=== PATIENT | male | born 1940 | race Caucasian/White ===

== ENCOUNTER 2017-06-13 01:02 | Emergency (ER) | payer OTHER ==
[2017-06-13] MEDS ORDERED: NA CHLORIDE 0.9% 1,000 ML ONE (02:06)
[2017-06-13 02:10] LABS: Absolute Lymphocytes (CBC) 1.8 K/uL (0.7-4.9); Absolute Monocytes 0.6 K/uL (0.1-1.3); Absolute Neutrophil 3.3 K/uL (1.8-8.0); Basophils % 0.4 % (0-1.3); Eosinophils % 6.8 % (0-4.4); Hematocrit 38.4 % (39.6-49.0); Lymphocytes % 29.9 % (15.3-44.8); MCH 30.4 pg (27.0-35.0); MCV 91.3 fL (80-100); MPV 9.8 fL (7.6-11.3); Monocytes % 10.1 % (3.3-12.3); RBC Red Blood Cell Count 4.21 M/uL (4.33-5.43)
[2017-06-13 02:14] LABS: Protime INR 0.98
[2017-06-13 02:21] LABS: Potassium 3.8 mEq/L (3.6-5.0)
[2017-06-13 02:27] LABS: Albumin 4.1 g/dL (3.2-5.5); Bilirubin Direct 0.1 mg/dL (0-0.2); Bilirubin Total 0.5 mg/dL (0.3-1.2); CKMB Creatine Kinase MB 2.7 ng/ml (0.3-4.0); Magnesium 2.2 mg/dL (1.8-2.5); Protein, Total 7.9 g/dL (6.0-8.3)
--- NOTE | 2017-06-13 04:01 | EDPHYS ---
Physician Documentation [facility] Name: Kuldeep Ramsey Age: 77 yrs Sex: Male : 1940 Arrival Date: 06/13/2017 Time: 01:03 Bed 7 Private MD: Jeancarlos Smith V ED Physician Zaid Corral HPI: 06/13 01:47 This 77 yrs old Male presents to ER via Wheelchair with complaints of pkl Numbness Of Hand - ARM, Dizziness. 01:47 The patient presents to the emergency department with paresthesias of the right upper pkl extremity, that is mild, Also paresthesia of the left hand. Onset: The symptoms/episode began/occurred just prior to arrival, 1.5 hour(s) ago. Associated signs and symptoms: Pertinent positives: headache, blurred vision. Historical: - Allergies: 01:21 Seroquel; ak1 01:21 Morphine; ak1 01:21 Iodinated Contrast Media - IV Dye; ak1 01:21 Geodon; ak1 01:21 Codeine; ak1 - Home Meds: 01:21 amlodipine 5 mg tab 1 tab once daily [Active]; aspirin 81 mg Oral chew 1 tab once daily ak1 [Active]; valsartan 160 mg Oral tab 1 tab once daily [Active]; sotalol 120 mg Oral tab 0.5 tab 2 times per day [Active]; Lasix 40 mg Oral tab 1 tab once daily [Active]; magnesium oxide 400 mg Oral cap daily [Active]; omeprazole 20 mg Oral TbEC daily for Gastroesophageal reflux, Heartburn [Active]; potassium chloride 10 mEq Oral cpER 1 cap once daily [Active]; - PMHx: 01:21 Hypertension; Myocardial infarction; ak1 - Immunization history:: Adult Immunizations unknown. - Social history:: Smoking status: unknown. ROS: 01:47 ENT: Negative for injury, pain, and discharge. pkl 01:47 Eyes: Positive for blurry vision, of the both eyes. 01:47 Neck: Negative for stiffness. 01:47 Cardiovascular: Negative for chest pain. 01:47 Respiratory: Negative for cough, shortness of breath. 01:47 Abdomen/GI: Negative for abdominal pain, nausea, vomiting, and diarrhea. 01:47 Back: Negative for pain at rest, acute changes. 01:47 : Negative for urinary symptoms. 01:47 MS/extremity: Negative for acute changes. 01:47 Skin: Negative for rash. 01:47 Neuro: Positive for dizziness, headache. Exam: 01:47 Head/Face: Normocephalic, atraumatic. pkl 01:47 Eyes: Exam is negative for acute changes. pkl 01:47 ENT: Exam is negative for acute changes. 01:47 Neck: Exam negative for nuchal rigidity. 01:47 Chest/axilla: Exam negative for acute changes. 01:47 Cardiovascular: Rate: normal, Rhythm: regular. 01:47 Respiratory: the patient does not display signs of respiratory distress, Respirations: normal, Breath sounds: are clear throughout. 01:47 Abdomen/GI: Exam negative for acute changes. 01:47 Back: Exam negative for acute changes. 01:47 : Exam negative for acute changes. 01:47 Musculoskeletal/extremity: Exam is negative for acute changes. 01:47 Skin: Exam negative for rash. 01:47 Neuro: Orientation: is normal, Mentation: is normal, Cranial nerves: grossly normal, Cerebellar function: normal finger to nose testing, heel to roberson testing is normal, Motor: is normal. 01:55 Neuro: Sensation: numbness, that is mild, of the numbness right upper extremity pkl and left hand. Vital Signs: 01:21 BP 143 / 96; Pulse 57; Resp 16; Temp 97.9(O); Pulse Ox 97% on R/A; Weight 84.37 kg (R); ak1 Height 5 ft. 9 in. (175.26 cm) (R); Pain 7/10; 02:34 BP 121 / 57; Pulse 57; Resp 18; Pulse Ox 97% on R/A; ea 03:52 BP 116 / 66; Pulse 60; Resp 18; Pulse Ox 98% on R/A; ea 04:11 BP 120 / 70; Pulse 60; Resp 18; Pulse Ox 99% on R/A; Pain 0/10; ea 01:21 Body Mass Index 27.47 (84.37 kg, 175.26 cm) ak1 MDM: 01:07 Patient medically screened. pkl 03:54 Data reviewed: vital signs, nurses notes, lab test result(s), EKG, radiologic studies, pkl CT scan, plain films. ED course: Patient said he is feeling better. Numbness right upper extremity and left hand has improved. Headache, dizziness and vision also improved. Patient ambulate without difficulty. Advised to follow up with Dr. Barajas ( Neurologist ) this week for further evaluations. 06/13 01:44 Order name: Basic Metabolic Panel; Complete Time: 02: pkl 06/13 01:44 Order name: BNP; Complete Time: 02: pkl 06/13 01:44 Order name: CBC with Diff; Complete Time: 02:22 pkl 06/13 01:44 Order name: Ckmb; Complete Time: 02: pkl 06/13 01:44 Order name: CPK; Complete Time: 02: pkl 06/13 01:44 Order name: LFT's; Complete Time: 02: pkl 06/13 01:44 Order name: Magnesium; Complete Time: 02: pkl 06/13 01:44 Order name: PT-INR; Complete Time: 02: pkl 06/13 01:44 Order name: Ptt, Activated; Complete Time: 02: pkl 06/13 01:44 Order name: Troponin (emerg Dept Use Only); Complete Time: 02: pkl 06/13 01:44 Order name: XRAY Chest (1 view) pkl 06/13 01:44 Order name: EKG; Complete Time: 01:45 pkl 06/13 01:44 Order name: CT Head Brain wo Cont pkl 06/13 01:44 Order name: Cardiac monitoring; Complete Time: 02:00 pkl 06/13 01:44 Order name: IV Saline Lock; Complete Time: 02:00 pkl 06/13 01:44 Order name: Labs collected and sent; Complete Time: 02:00 pkl 06/13 01:44 Order name: O2 Per Protocol; Complete Time: 02:00 pkl 06/13 01:44 Order name: O2 Sat Monitoring; Complete Time: 02:01 pkl Administered Medications: 02:03 Drug: NS 0.9% 1000 ml Route: IV; Rate: 100 ml/hr; Site: right antecubital; ea 04:12 Follow up: Response: No adverse reaction; IV Status: Completed infusion; IV Intake: ea 300ml Disposition: 06/13/17 04:00 Discharged to Home. Impression: Acute headache. Paresthesias right upper extremity and left hand. - Condition is Stable. - Medication Reconciliation Form, Thank You Letter, Antibiotic Education, Prescription Opioid Use form. - Follow up: Jeancarlos Smith MD; When: 1 - 2 days; Reason: Re-evaluation by your physician. - Problem is new. - Symptoms have improved. Signatures: Dispatcher [employer] EDMS Zaid Corral MD MD pkl Krenek, Amber, RN RN ak1 Damaris Steven RN RN ea
--- NOTE | 2017-06-13 04:01 | ER ---
Nurse's Notes [facility] Name: Kuldeep Ramsey Age: 77 yrs Sex: Male : 1940 Arrival Date: 06/13/2017 Time: 01:03 Bed 7 Private MD: Jeancarlos Smith V Diagnosis: Acute headache. Paresthesias right upper extremity and left hand Presentation: 06/13 01:18 Presenting complaint: Patient states: bilateral hand numbness and tingling since ak1 midnight. Transition of care: patient was not received from another setting of care. Onset of symptoms was June 13, 2017. Note PCP Dr. Griffin and e commerce developer Dr. Laguerre. Care prior to arrival: None. 01:18 Method Of Arrival: Wheelchair ak1 01:18 Acuity: JEREMÍAS 3 ak1 Triage Assessment: :21 General: Appears in no apparent distress. Behavior is calm, cooperative. Pain: ak1 Complains of pain in right hand and left hand. EENT: No signs and/or symptoms were reported regarding the EENT system. Neuro: Level of Consciousness is awake, alert, obeys commands, Oriented to person, place, time, situation, Training Administrator are equal bilaterally Moves all extremities. Gait is steady, Speech is normal, Facial symmetry appears normal, Pupils are PERRLA. Cardiovascular: No deficits noted. Respiratory: No deficits noted. GI: No signs and/or symptoms were reported involving the gastrointestinal system. : No signs and/or symptoms were reported regarding the genitourinary system. Derm: No signs and/or symptoms reported regarding the dermatologic system. Musculoskeletal: Circulation, motion, and sensation intact. Range of motion: intact in all extremities, Reports pain in right hand and left hand. Historical: - Allergies: 01: Seroquel; ak1 01:21 Morphine; ak1 01:21 Iodinated Contrast Media - IV Dye; ak1 01:21 Geodon; ak1 01:21 Codeine; ak1 - Home Meds: 01:21 amlodipine 5 mg tab 1 tab once daily [Active]; aspirin 81 mg Oral chew 1 tab once daily ak1 [Active]; valsartan 160 mg Oral tab 1 tab once daily [Active]; sotalol 120 mg Oral tab 0.5 tab 2 times per day [Active]; Lasix 40 mg Oral tab 1 tab once daily [Active]; magnesium oxide 400 mg Oral cap daily [Active]; omeprazole 20 mg Oral TbEC daily for Gastroesophageal reflux, Heartburn [Active]; potassium chloride 10 mEq Oral cpER 1 cap once daily [Active]; - PMHx: 01:21 Hypertension; Myocardial infarction; ak1 - Immunization history:: Adult Immunizations unknown. - Social history:: Smoking status: unknown. Screenin:23 Abuse screen: Denies threats or abuse. Denies injuries from another. Nutritional ak1 screening: No deficits noted. Tuberculosis screening: No symptoms or risk factors identified. Fall Risk None identified. Assessment: 01:34 General: Appears uncomfortable, Behavior is calm, cooperative, appropriate for age. ea General: pt reports he has been feeling dizzy . Pain: Denies pain. Neuro: Reports numbness to the tip of the left fingers and right hand and arm.. Neuro: Level of Consciousness is awake, alert, obeys commands, Oriented to person, place, time, situation, Training Administrator are equal bilaterally Moves all extremities. Speech is normal, Facial symmetry appears normal, . Cardiovascular: Patient's skin is warm and dry. Respiratory: Airway is patent Respiratory effort is even, unlabored, Respiratory pattern is regular, symmetrical. GI: Abdomen is non-distended. : No signs and/or symptoms were reported regarding the genitourinary system. EENT: No signs and/or symptoms were reported regarding the EENT system. Derm: Skin is dry, Skin is normal, Skin temperature is warm. 02:16 Reassessment: Patient and/or family updated on plan of care and expected duration. Pain ea level reassessed. Patient is alert, oriented x 3, equal unlabored respirations, skin warm/dry/pink. pt reports the numbness in left fingertips resolved. 03:50 Reassessment: Pt resting with eyes closed, respiration even and unlabored chest ea expansions even and symmetrical. No obvious s/s of pain or discomfort noted at this time. 04:10 Reassessment: Patient and/or family updated on plan of care and expected duration. Pain ea level reassessed. Patient is alert, oriented x 3, equal unlabored respirations, skin warm/dry/pink. Discharge instructions given to patient, verbalized the understanding of instruction. Patient states symptoms have improved. Vital Signs: 01:21 BP 143 / 96; Pulse 57; Resp 16; Temp 97.9(O); Pulse Ox 97% on R/A; Weight 84.37 kg (R); ak1 Height 5 ft. 9 in. (175.26 cm) (R); Pain 7/10; 02:34 BP 121 / 57; Pulse 57; Resp 18; Pulse Ox 97% on R/A; ea 03:52 BP 116 / 66; Pulse 60; Resp 18; Pulse Ox 98% on R/A; ea 04:11 BP 120 / 70; Pulse 60; Resp 18; Pulse Ox 99% on R/A; Pain 0/10; ea 01:21 Body Mass Index 27.47 (84.37 kg, 175.26 cm) ak1 ED Course: 01:03 Patient arrived in ED. am2 01:04 Jeancarlos Smith MD is Private Physician. am2 01:07 Zaid Corral MD is Attending Physician. pkl 01:19 Triage completed. ak1 01:23 Arm band placed on Patient placed in an exam room, on a stretcher, on pulse oximetry, ak1 Patient notified of wait time. 01:23 Patient has correct armband on for positive identification. Bed in low position. Call ak1 light in reach. Adult w/ patient. Pulse ox on. NIBP on. 01:45 Damaris Steven, RN is Primary Nurse. ea 02:00 Basic Metabolic Panel Sent. cc 02:00 BNP Sent. cc 02:00 CBC with Diff Sent. cc 02:00 Ckmb Sent. cc 02:00 CPK Sent. cc 02:00 LFT's Sent. cc 02:00 Magnesium Sent. cc 02:00 PT-INR Sent. cc 02:00 Ptt, Activated Sent. cc 02:00 Troponin (emerg Dept Use Only) Sent. cc 02:01 Initial lab(s) drawn, by ar, sent to lab. Inserted saline lock: 18 gauge in right cc antecubital area, using aseptic technique. Blood collected. 02:04 Patient moved to radiology via stretcher. kw 02:04 X-ray completed. Patient tolerated procedure well. kw 02:04 Patient moved back from radiology. kw 02:05 XRAY Chest (1 view) In Process Unspecified. EDMS 02:05 CT Head Brain wo Cont In Process Unspecified. EDMS 03:59 Jeancarlos Smith MD is Referral Physician. pkl 04:10 No provider procedures requiring assistance completed. IV discontinued, intact, ea bleeding controlled, No redness/swelling at site. Pressure dressing applied. Administered Medications: 02:03 Drug: NS 0.9% 1000 ml Route: IV; Rate: 100 ml/hr; Site: right antecubital; ea 04:12 Follow up: Response: No adverse reaction; IV Status: Completed infusion; IV Intake: ea 300ml Intake: 04:12 IV: 300ml; Total: 300ml. ea Outcome: 04:00 Discharge ordered by . pkl 04:11 Condition: improved ea 04:11 Discharge instructions given to patient, Instructed on discharge instructions, follow up and referral plans. Demonstrated understanding of instructions, follow-up care. 04:12 Discharged to home ambulatory, with significant other. ea 04:19 Patient left the ED. ea Signatures: Dispatcher [employer] EDMS Zaid Corral MD MD pkCece Still [place] cc Krenek, Amber RN RN Tanya Kowalski Elena, TATI RN kevin Corrections: (The following items were deleted from the chart) 01:45 01:34 Neuro: Level of Consciousness is awake, alert, obeys commands, Oriented to ea person, place, time, situation, Speech is normal, . ea 02:38 02:34 BP 121 / 57; ea ea
[2017-06-13 04:26] VITALS: TEMP 97.9
[2017-06-13 04:29] VITALS: BP 120/70; O2SAT 99
--- NOTE | 2017-06-13 07:53 | RAD REPORT ---
EXAM DESCRIPTION: Nicole Single View06/13/2017 2:06 am CLINICAL HISTORY: Chest pain COMPARISON: 2010 FINDINGS: Postsurgical changes involve the chest. Haziness overlying the left hemithorax is unchange d probably representing pleural/ parenchymal lung scarring. The lungs appear clear of acute infiltrate. The heart is mildly enlarged IMPRESSION: No acute abnormalities displayed
--- NOTE | 2017-06-13 08:15 | RAD REPORT ---
EXAM DESCRIPTION: CT - Head Brain Wo Cont - 06/13/2017 6:50 am CLINICAL HISTORY: Bilateral hand numbness and headache COMPARISON: None. TECHNIQUE: Computed axial tomography of the head was obtained. IV contrast was not requested.A preli minary report was generated by [facility] and reviewed prior to this dictation All CT scans are performed using dose optimization technique as appropriate and may include automated exposure control or mA/KV adjustment according to patient size. FINDINGS: An intracranial bleed is not seen . The ventricles are normal in caliber. No extra-axial fluid collection is noted. Fluid within the sinuses/ mastoids is not seen. IMPRESSION: No acute intracranial abnormality is seen. If patient's symptoms persist MRI of the bra in would be recommended.
--- NOTE | 2017-06-13 16:28 | EKG ---
Test Date: 2017-06-13 Test Time: 02:10:33 Piper Helper: LUIS MEASUREMENT RESULTS: Intervals: Rate: 56 WI: 202 QRSD: 106 QT: 440 QTc: 424 [place]: P: 3 WI: 202 QRS: -5 T: 18 INTERPRETIVE STATEMENTS: Sinus bradycardia T wave abnormality, consider anterior ischemia Abnormal ECG Compared to ECG 05/16/2017 08:07:35 T-wave abnormality now present Possible ischemia now present Sinus rhythm no longer present ST (T wave) deviation no longer present Electronically Signed On 06-13-17 16:25:10 CDT by Hu Whaley
== END 2017-06-13 04:19 | disposition home or self-care (01) ==
LOC: ER 01:02
DX: R20.2 Paresthesia of skin (principal); I10 Essential (primary) hypertension; I25.2 Old myocardial infarction; Z79.82 Long term (current) use of aspirin; Z88.5 Allergy status to narcotic agent; Z88.8 Allergy status to other drugs, medicaments and biological substances; Z91.041 Radiographic dye allergy status
CPT/HCPCS: 36415; 70450; 71045; 80048; 80076; 82550; 82553; 83735; 83880; 84484; 85025; 85610; 85730; 93005; 96360; 96361; 99284; J7030

== ENCOUNTER 2017-07-25 07:19 | Day surgery (SDC) | payer OTHER ==
[2017-07-24 11:12] LABS: Absolute Lymphocytes (CBC) 1.2 K/uL (0.7-4.9); Absolute Monocytes 0.5 K/uL (0.1-1.3); Absolute Neutrophil 3.4 K/uL (1.8-8.0); Basophils % 0.4 % (0-1.3); Hematocrit 38.6 % (39.6-49.0); Lymphocytes % 22.1 % (15.3-44.8); MCH 30.1 pg (27.0-35.0); MCV 91.9 fL (80-100); MPV 9.5 fL (7.6-11.3); Monocytes % 9.3 % (3.3-12.3)
[2017-07-24 11:13] LABS: Protime INR 1.03
[2017-07-24 11:37] LABS: BUN Blood Urea Nitrogen 18 mg/dL (6-20); Bicarbonate 27 mEq/L (21-31); Glucose Level 164 mg/dL (65-120); Potassium 4.1 mEq/L (3.6-5.0); Sodium Level 139 mEq/L (135-145)
[2017-07-25] MEDS ORDERED: NA CHLORIDE 0.9% 500 ML ONE (07:48)
[2017-07-25] MEDS ORDERED: FENTANYL CITR 100 MCG/2 ML ONE (08:18)
[2017-07-25] MEDS ORDERED: LIDOCAINE 1% 20 ML MDV ONE (08:18)
[2017-07-25] MEDS ORDERED: HEPA 1000U/500MLS 1,000 UNIT/500 ML BAG IV ONE (08:18)
[2017-07-25] MEDS ORDERED: MIDAZOLAM HCL 2 MG/2 ML INJ ONE ×2 (08:18→08:49)
[2017-07-25 10:45] VITALS: TEMP 97.2
[2017-07-25 11:11] VITALS: BP 112/61; O2SAT 96
--- NOTE | 2017-07-26 16:58 | OP ---
Date of Procedure: 07/25/2017 Surgeon: Hu Whaley MD Commercial Portfolio Manager: Nicole Patel. Procedure: Selective bilateral carotid angiogram. Indication: Cerebrovascular disease and positive arterial Doppler. Mr. Ramsey is a 77-year-old, has had a history of CABG before, has had CVD that we have been followi ng. Last carotid Doppler showed worsening stenosis. No symptoms. Description Of Procedure: Brought to the medical lab specialist as an outpatient. He was given 2 mg of sedation w ith Versed IV. He was prepped and draped in the routine sterile fashion. A 6-Mauritian sheath was intr oduced in the right common femoral artery. Angio-Seal was used to close the case. A JR4 catheter wa s used to select the right common carotid and the left common carotid. 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 The left common carotid and the right commo n carotid were normal. Both internal carotid arteries were positive for [id number] atheroscler osis, less than 50%. The patient tolerated the procedure well. Blood loss was 5 cc. There were no complications. Total conscious sedation was 30 minutes. Operators: Hu Whaley M.D. Final Diagnosis: Mild cerebrovascular disease. Plan: Medical therapy to be continued. The patient will be going home after 2 hours of bedrest and he will see me in the office in about 2 weeks. RUPALI/SUMAN Voice ID: [id number] Report ID: [id number]
== END 2017-07-25 11:05 | disposition home or self-care (01) ==
LOC: CCL 07:19
DX: I65.23 Occlusion and stenosis of bilateral carotid arteries (principal); I25.10 Atherosclerotic heart disease of native coronary artery without angina pectoris; I70.218 Atherosclerosis of native arteries of extremities with intermittent claudication, other extremity; I10 Essential (primary) hypertension; I48.91 Unspecified atrial fibrillation; I25.2 Old myocardial infarction; K21.9 Gastro-esophageal reflux disease without esophagitis; Z95.1 Presence of aortocoronary bypass graft; Z87.891 Personal history of nicotine dependence; Z88.6 Allergy status to analgesic agent; Z91.041 Radiographic dye allergy status; Z82.49 Family history of ischemic heart disease and other diseases of the circulatory system
CPT/HCPCS: 36222 ×2; 36415; 80048; 85025; 85610; 85730; C1760; C1893; J2250 ×2; J3010

== ENCOUNTER 2018-04-27 15:06 | Inpatient (IN) | payer OTHER ==
--- NOTE | 2018-04-27 16:16 | EKG ---
Test Date: 2018-04-27 Test Time: 15:22:34 Freight Loader: SKYE MEASUREMENT RESULTS: Intervals: Rate: 58 IA: 188 QRSD: 100 QT: 454 QTc: 445 [place]: P: 37 IA: 188 QRS: 66 T: 73 INTERPRETIVE STATEMENTS: Sinus bradycardia Nonspecific T wave abnormality Abnormal ECG Compared to ECG 06/13/2017 02:10:33 Possible ischemia no longer present T-wave abnormality still present Electronically Signed On 04-27-18 16:16:26 SEARCH LEAD by Jonathan Nash
[2018-04-27 16:30] LABS: Protime INR 1.05
[2018-04-27 16:31] LABS: Absolute Lymphocytes (CBC) 1.6 K/uL (0.7-4.9); Absolute Monocytes 0.6 K/uL (0.1-1.3); Absolute Neutrophil 3.4 K/uL (1.8-8.0); Basophils % 0.6 % (0-1.3); Eosinophils % 3.4 % (0-4.4); Hematocrit 40.3 % (39.6-49.0); Lymphocytes % 27.7 % (15.3-44.8); MPV 9.4 fL (7.6-11.3); Monocytes % 9.6 % (3.3-12.3); RBC Red Blood Cell Count 4.27 M/uL (4.33-5.43)
[2018-04-27 16:46] LABS: Albumin 3.5 g/dL (3.4-5.0); Bilirubin Direct 0.1 mg/dL (0-0.2); Bilirubin Total 0.4 mg/dL (0.2-1.0); Magnesium 2.1 mg/dL (1.8-2.4); Potassium 3.9 mmol/L (3.5-5.1); Protein, Total 7.5 g/dL (6.4-8.2); Troponin (Emerg Dept Use Only) 0.31 ng/mL (0.0-0.045)
--- NOTE | 2018-04-27 16:58 | RAD REPORT ---
EXAM DESCRIPTION: RAD - Chest Single View - 04/27/2018 4:24 pm CLINICAL HISTORY: Chest pain COMPARISON: May 2017 TECHNIQUE: AP portable chest image was obtained 1619 hours . FINDINGS: Lung volumes are reduced but not substantially different from comparison. Chronic intersti tial lung disease is present. No focal mass or consolidation in the right hemithorax. Patient has haz y opacification in the mid and lower left lung field matching the prior study. This is believed to be pleural and parenchymal scarring changes related to prior surgery. Fullness of the left hilum has no t clearly changed in 10-11 months. Cardiac silhouette is similar to the comparison. Sternotomy wires are in place. No pneumothorax or large pleural effusion. No acute bony abnormality seen. No acute aor tic findings suspected. IMPRESSION: Chronic pleural and parenchymal changes to the chest are noted not substantially differe nt from the comparison. Extent of chronic disease can mask early interstitial edema or infiltrate.
--- NOTE | 2018-04-27 17:30 | RAD REPORT ---
EXAM DESCRIPTION: CT - Head Brain Wo Cont - 04/27/2018 5:17 pm CLINICAL HISTORY: Blurred vision COMPARISON: May 2017 TECHNIQUE: Axial 5 mm thick images of the head were obtained without IV contrast. All CT scans are performed using dose optimization technique as appropriate and may include automated exposure control or mA/KV adjustment according to patient size. FINDINGS: No intracranial hemorrhage, mass, edema or shift of mid-line structures. No acute cortical based infarction. No cortical edema or sulcal effacement. Patient has mild to moderate atrophy and c hronic ischemic change matching the prior study. Arterial calcifications are present. No abnormal ext ra-axial fluid collections. Ventricles are in proportion to volume loss. Mastoid air cells are non pneumatized. No acute paranasal sinus finding. No acute bony findings. IMPRESSION: Mild to moderate atrophy and chronic ischemic change. No acute intracranial finding.
--- NOTE | 2018-04-27 18:25 | ER ---
Nurse's Notes [facility] Name: Kuldeep Ramsey Age: 77 yrs Sex: Male : 1940 Arrival Date: 04/27/2018 Time: 15:07 Bed 6 Private MD: Jeancarlos Smith V Diagnosis: Unstable angina Presentation: 04/27 15:12 Presenting complaint: Patient states: no chest pain at this time but when he had it sv this morning c/o anterior chest pain and neck pain, noticed blurry vision when he registered, c/o SOB. Transition of care: patient was not received from another setting of care. Onset of symptoms was April 27, 2018. Care prior to arrival: None. 15:12 Method Of Arrival: Wheelchair sv 15:12 Acuity: JEREMÍAS 3 sv Triage Assessment: 15:15 General: Appears in no apparent distress. comfortable, Behavior is calm, cooperative, sv appropriate for age. Pain: Denies pain. Neuro: Level of Consciousness is awake, alert, obeys commands, Oriented to person, place, time, situation, Moves all extremities. Full function. Cardiovascular: Denies chest pain. Respiratory: Reports shortness of breath. Derm: Skin is normal. Historical: - Allergies: 15:14 Codeine; sv 15:14 Geodon; sv 15:14 Iodinated Contrast Media - IV Dye; sv 15:14 Morphine; sv 15:14 Seroquel; sv - Home Meds: 18:51 amlodipine 5 mg tab 1 tab once daily [Active]; aspirin 81 mg Oral chew 1 tab once daily aj [Active]; Lasix 40 mg Oral tab 1 tab once daily [Active]; magnesium oxide 400 mg Oral cap daily [Active]; omeprazole 20 mg Oral TbEC daily for Gastroesophageal reflux, Heartburn [Active]; potassium chloride 10 mEq Oral cpER 1 cap once daily [Active]; sotalol 120 mg Oral tab 0.5 tab 2 times per day [Active]; valsartan 160 mg Oral tab 1 tab once daily [Active]; - PMHx: 15:14 Hypertension; Myocardial infarction; sv - PSHx: 15:14 Triple bypass; cardiac stents; leg stents; sv - Immunization history:: Adult Immunizations up to date. - Social history:: Smoking status: Patient/guardian denies using tobacco. Screenin:15 Abuse screen: Denies threats or abuse. Denies injuries from another. Nutritional aj screening: No deficits noted. Tuberculosis screening: No symptoms or risk factors identified. Fall Risk None identified. Assessment: 16:15 General: Appears in no apparent distress. comfortable, Behavior is calm, cooperative, aj appropriate for age. Pain: Complains of pain in chest and neck Pain radiates to face. Pain: Pain began 1 day ago. Neuro: Level of Consciousness is awake, alert, obeys commands, Oriented to person, place, time, situation, Appropriate for age. Respiratory: Airway is patent Respiratory effort is even, unlabored, Respiratory pattern is regular, symmetrical. Derm: Skin is intact, is healthy with good turgor, Skin is pink, warm \T\ dry. normal. 18:22 Reassessment: Pt assisted to restroom via wheelchair. . aa5 Vital Signs: 15:14 BP 139 / 65; Pulse 63; Resp 16; Temp 97.5; Pulse Ox 100% ; Weight 79.38 kg; Height 5 sv ft. 9 in. (175.26 cm); Pain 0/10; 16:48 BP 119 / 62; Pulse 58; Resp 24; Pulse Ox 99% on R/A; aj 17:59 BP 138 / 61; Pulse 59; Resp 16; Pulse Ox 99% on R/A; aj 18:51 BP 135 / 64; Pulse 64; Resp 19; Pulse Ox 99% on R/A; aj 15:14 Body Mass Index 25.84 (79.38 kg, 175.26 cm) sv ED Course: 15:07 Patient arrived in ED. sb2 15:08 Jeancarlos Smith MD is Private Physician. sb2 15:13 Triage completed. sv 15:15 Arm band placed on. sv 15:30 Tanya Woods, TATI is Primary Nurse. aj 15:44 Maximo Beasley PA is PHCP. cp 15:45 Chau Krishnan MD is Attending Physician. cp 15:46 EKG done, by emergency medical technician. reviewed by Chau Krishnan MD. sm3 16:15 Patient has correct armband on for positive identification. Bed in low position. Side aj rails up X 1. Adult w/ patient. monitoring manager on. Pulse ox on. NIBP on. 16:15 Inserted saline lock: 20 gauge in right antecubital area, using aseptic technique. aj Blood collected. Patient maintains SpO2 saturation greater than 95% on room air. 16:26 XRAY Chest (1 view) In Process Unspecified. EDMS 17:18 CT Head Brain wo Cont In Process Unspecified. EDMS 18:23 Jeancarlos Smith MD is Hospitalizing Provider. cp Administered Medications: 18:45 Drug: Lovenox 1 mg/kg Route: Sub-Q; Site: abdomen; aj 19:20 Follow up: Response: No adverse reaction aj 18:46 CANCELLED (dose changed): Aspirin Chewable Tablet 324 mg PO once; 81 mg tablets x 4 aj 18:47 Drug: Aspirin Chewable Tablet 81 mg Route: PO; aj 19:20 Follow up: Response: No adverse reaction aj Outcome: 18:24 Decision to Hospitalize by Provider. cp 19:51 Admitted to Tele accompanied by tech, via stretcher, room 215, with chart, Report bb called to Yumiko DUFFY 19:51 Condition: stable 19:51 Instructed on the need for admit. 20:07 Patient left the ED. ak1 Signatures: Dispatcher [employer] EDWillow Gage, RN RN Tanya Arango RN RN Roz Mendoza RN RN bb Jahaira Mata, RN RN aa5 Jazmin Ortiz RN RN ak1 Maximo Beasley, REESE PA Neda Bhatia sb2 Dayna East sm3 Corrections: (The following items were deleted from the chart) 18:46 18:45 Aspirin Chewable Tablet 324 mg PO aj aj
--- NOTE | 2018-04-27 18:25 | EDPHYS ---
Physician Documentation [facility] Name: Kuldeep Ramsey Age: 77 yrs Sex: Male : 1940 Arrival Date: 04/27/2018 Time: 15:07 Bed 6 Private MD: Jeancarlos Smith V ED Physician Chau Krishnan HPI: 04/27 16:23 This 77 yrs old Male presents to ER via Wheelchair with complaints of Chest cp Pain > 30 y/o, Neck Pain, <24hrs Old, Blurred Vision. 16:23 The patient or guardian reports chest pain that is located primarily in the anterior cp chest wall, bilaterally. The pain radiates to neck. Associated signs and symptoms: Pertinent negatives: abdominal pain, cough, diaphoresis, lower extremity pain, lower extremity swelling, recent travel, shortness of breath, syncope. The chest pain is described as aching. Duration: The patient or guardian reports multiple episodes, that have now resolved. Patient reports episode of chest pain after walking that resolved with rest yesterday and another episode today of chest pain when walking in yard that has now resolved while in ED. Historical: - Allergies: 15:14 Codeine; sv 15:14 Geodon; sv 15:14 Iodinated Contrast Media - IV Dye; sv 15:14 Morphine; sv 15:14 Seroquel; sv - Home Meds: 18:51 amlodipine 5 mg tab 1 tab once daily [Active]; aspirin 81 mg Oral chew 1 tab once daily aj [Active]; Lasix 40 mg Oral tab 1 tab once daily [Active]; magnesium oxide 400 mg Oral cap daily [Active]; omeprazole 20 mg Oral TbEC daily for Gastroesophageal reflux, Heartburn [Active]; potassium chloride 10 mEq Oral cpER 1 cap once daily [Active]; sotalol 120 mg Oral tab 0.5 tab 2 times per day [Active]; valsartan 160 mg Oral tab 1 tab once daily [Active]; - PMHx: 15:14 Hypertension; Myocardial infarction; sv - PSHx: 15:14 Triple bypass; cardiac stents; leg stents; sv - Immunization history:: Adult Immunizations up to date. - Social history:: Smoking status: Patient/guardian denies using tobacco. ROS: 16:30 Constitutional: Negative for body aches, chills, fever, poor PO intake. cp 16:30 Eyes: Positive for blurry vision, Negative for discharge, pain, redness, vision loss. cp 16:30 ENT: Negative for drainage from ear(s), ear pain, sore throat, difficulty swallowing, difficulty handling secretions, hoarseness. 16:30 Cardiovascular: Positive for chest pain, Negative for edema, palpitations. 16:30 Respiratory: Negative for cough, shortness of breath, wheezing. 16:30 Abdomen/GI: Negative for abdominal pain, nausea, vomiting, and diarrhea, black/tarry stool, rectal bleeding. 16:30 Back: Negative for pain at rest, pain with movement, radiated pain. 16:30 Skin: Negative for cellulitis, rash. 16:30 Neuro: Positive for Negative for altered mental status, headache, syncope, weakness. 16:30 All other systems are negative. Exam: 16:35 Constitutional: The patient appears in no acute distress, alert, awake, cp non-diaphoretic, non-toxic, well developed, well nourished. 16:35 Head/Face: Normocephalic, atraumatic. Eyes: Pupils equal round and reactive to light, cp extra-ocular motions intact. Lids and lashes normal. Conjunctiva and sclera are non-icteric and not injected. Cornea within normal limits. Periorbital areas with no swelling, redness, or edema. ENT: Nares patent. No nasal discharge, no septal abnormalities noted. Tympanic membranes are normal and external auditory canals are clear. Oropharynx with no redness, swelling, or masses, exudates, or evidence of obstruction, uvula midline. Mucous membranes moist. Chest/axilla: Normal chest wall appearance and motion. Nontender with no deformity. No lesions are appreciated. 16:35 Cardiovascular: Rate: normal, Rhythm: regular, Pulses: Pulses are 2+ in right radial artery and left radial artery. Edema: is not appreciated, JVD: is not appreciated. 16:35 Respiratory: the patient does not display signs of respiratory distress, Respirations: normal, no use of accessory muscles, no retractions, no splinting, labored breathing, is not present, Breath sounds: are clear throughout, no decreased breath sounds, no stridor, no wheezing. 16:35 Abdomen/GI: Inspection: abdomen appears normal, Bowel sounds: active, all quadrants, Palpation: abdomen is soft and non-tender, in all quadrants. 16:35 Back: pain, is absent, ROM is normal. 16:35 Skin: cellulitis, is not appreciated, no rash present. 16:35 Neuro: Orientation: to person, place \T\ time. Mentation: is normal, Cerebellar function: is grossly normal, Motor: moves all fours, strength is normal, Sensation: is normal. Vital Signs: 15:14 BP 139 / 65; Pulse 63; Resp 16; Temp 97.5; Pulse Ox 100% ; Weight 79.38 kg; Height 5 sv ft. 9 in. (175.26 cm); Pain 0/10; 16:48 BP 119 / 62; Pulse 58; Resp 24; Pulse Ox 99% on R/A; aj 17:59 BP 138 / 61; Pulse 59; Resp 16; Pulse Ox 99% on R/A; aj 18:51 BP 135 / 64; Pulse 64; Resp 19; Pulse Ox 99% on R/A; aj 15:14 Body Mass Index 25.84 (79.38 kg, 175.26 cm) sv MDM: 15:45 Patient medically screened. 17:40 Data reviewed: vital signs, nurses notes, lab test result(s), EKG, radiologic studies, cp CT scan, plain films. 17:45 Physician consultation: Sena Castillo MD was called at 17:45, regarding admission, to the telemetry unit. left msg on voicemail. 18:09 Physician consultation: Sena Castillo MD was called at 18:10, left message on voicemail.cp 02 16:05 Order name: Basic Metabolic Panel; Complete Time: 16:51 cp 04/27 16:05 Order name: CBC with Diff; Complete Time: 16:51 cp 04/27 16:05 Order name: LFT's; Complete Time: 16:51 cp 02 16:05 Order name: Magnesium; Complete Time: 16:51 cp 02 16:05 Order name: NT PRO-BNP; Complete Time: 16:51 cp 02 16:05 Order name: PT-INR; Complete Time: 16:51 cp 04/27 16:05 Order name: Troponin (emerg Dept Use Only); Complete Time: 16:51 cp 04/27 18:57 Order name: Basic Metabolic Panel EDMS 04/27 18:57 Order name: Basic Metabolic Panel; Complete Time: 14:21 EDMS 04/27 18:57 Order name: CBC with Automated Diff EDMS 04/27 18:57 Order name: CBC with Automated Diff; Complete Time: 14:21 EDMS 04/27 18:57 Order name: Troponin I EDMS 04/27 18:57 Order name: Troponin I; Complete Time: 14:21 EDMS 04/27 18:57 Order name: Troponin I; Complete Time: 14:21 EDMS 04/27 15:15 Order name: EKG; Complete Time: 15:15 sv 04/27 15:15 Order name: EKG - Nurse/Tech; Complete Time: 16:04 sv 04/27 16:05 Order name: XRAY Chest (1 view); Complete Time: 17:21 cp 04/27 16:05 Order name: Cardiac monitoring; Complete Time: 16:18 cp 04/27 16:05 Order name: IV Saline Lock; Complete Time: 16:18 cp 04/27 16:05 Order name: Labs collected and sent; Complete Time: 16:18 cp 04/27 16:52 Order name: CT Head Brain wo Cont; Complete Time: 17:39 cp 04/27 18:57 Order name: CONS Physician Consult EDAZ 04/27 18:57 Order name: Regular EDAZ 04/27 18:57 Order name: EKG Electrocardiogram EDAZ 04/27 18:57 Order name: EKG Electrocardiogram EDAZ 04/27 18:57 Order name: EKG Electrocardiogram EDAZ 04/27 18:57 Order name: EKG Electrocardiogram EDAZ 04/27 16:05 Order name: O2 Per Protocol; Complete Time: 16:20 cp 04/27 16:05 Order name: O2 Sat Monitoring; Complete Time: 16:20 cp 04/27 17:22 Order name: Misc. Order: bed rest; Complete Time: 17:29 cp Administered Medications: 18:45 Drug: Lovenox 1 mg/kg Route: Sub-Q; Site: abdomen; aj 19:20 Follow up: Response: No adverse reaction aj 18:46 CANCELLED (dose changed): Aspirin Chewable Tablet 324 mg PO once; 81 mg tablets x 4 aj 18:47 Drug: Aspirin Chewable Tablet 81 mg Route: PO; aj 19:20 Follow up: Response: No adverse reaction aj Disposition: 21:00 Chart complete. cp Disposition: 04/27/18 18:24 Hospitalization ordered by Jeancarlos Smiht for Inpatient Admission. Preliminary diagnosis is Unstable angina. - Bed requested for Telemetry/MedSurg (Inpatient). - Status is Inpatient Admission. ak1 - Condition is Stable. - Problem is new. - Symptoms have improved. UTI on Admission? No Addendum: 04/30/2018 07:47 Co-signature as Attending Physician, Chau Krishnan MD I agree with the assessment and k plan of care. Signatures: Dispatcher [employer] EDMS Katie Scherer RN Willow Rawls RN RN Tanya Arango RN Chau Recio MD MD [facility] Jazmin Ortiz RN RN ak Maximo Beasley PA PA cp Corrections: (The following items were deleted from the chart) 04/27 18:46 17:40 Aspirin Chewable Tablet 324 mg PO once; 81 mg tablets x 4 ordered. cp aj 18:46 18:45 Aspirin Chewable Tablet 324 mg PO once; 81 mg tablets x 4 given. aj aj 18:46 18:46 Aspirin Chewable Tablet 324 mg PO once; 81 mg tablets x 4 ordered. aj aj 19:15 18:24 Hospitalization Ordered by Jeancarlos Smith MD for Inpatient Admission. Preliminary diagnosis is Unstable angina. Bed requested for Telemetry/MedSurg (Inpatient). Status is Inpatient Admission. Condition is Stable. Problem is new. Symptoms have improved. UTI on Admission? No. cp 20:07 19:15 04/27/2018 18:24 Hospitalization Ordered by Jeancarlos Smith MD for Inpatient ak1 Admission. Preliminary diagnosis is Unstable angina. Bed requested for Telemetry/MedSurg (Inpatient). Status is Inpatient Admission. Condition is Stable. Problem is new. Symptoms have improved. UTI on Admission? No. kl
[2018-04-27] MEDS ORDERED: ENOXAPARIN 80 MG/0.8 ML SQ ONE (18:51)
[2018-04-27] MEDS ORDERED: ASPIRIN 81 MG CHEWABLE TABLET ONE (18:51)
[2018-04-27] MEDS ORDERED: ONDANSETRON 4 MG/2 ML VIAL IV PRN (18:54)
[2018-04-27] MEDS ORDERED: ACETAMINOPHEN 500 MG TAB PO PRN (18:54)
[2018-04-27] MEDS ORDERED: ENOXAPARIN 80 MG/0.8 ML SQ SCH (21:00)
[2018-04-27 21:35] VITALS: BMI 24.7
[2018-04-27] MEDS: SOTALOL HCL 80 MG TAB PO SCH (23:01)
[2018-04-28 06:01] LABS: Absolute Lymphocytes (CBC) 1.5 K/uL (0.7-4.9); Absolute Monocytes 0.6 K/uL (0.1-1.3); Absolute Neutrophil 2.6 K/uL (1.8-8.0); Basophils % 0.3 % (0-1.3); Eosinophils % 4.3 % (0-4.4); Lymphocytes % 30.7 % (15.3-44.8); MPV 9.8 fL (7.6-11.3); RBC Red Blood Cell Count 3.98 M/uL (4.33-5.43)
[2018-04-28 06:10] LABS: Potassium 4.2 mmol/L (3.5-5.1)
[2018-04-28] MEDS: PANTOPRAZOLE 40MG TABLET PO SCH (06:25)
[2018-04-28] MEDS ORDERED: AMLODIPINE 5 MG TAB PO SCH ×2 (09:00)
[2018-04-28] MEDS ORDERED: HOME MED 1 EA UNK (Omeprazole [Prilosec] 20 MG) PO SCH (09:00)
[2018-04-28] MEDS ORDERED: SOTALOL HCL 120 MG PO SCH (09:00)
[2018-04-28] MEDS ORDERED: VALSARTAN 80 MG TAB PO SCH (09:00)
[2018-04-28] MEDS ORDERED: VALSARTAN 160 MG TAB PO SCH (09:00)
[2018-04-28] MEDS: SOTALOL HCL 80 MG TAB PO SCH ×2 (10:23→20:59)
[2018-04-28] MEDS: ASPIRIN EC 81 MG TAB PO SCH (10:23)
[2018-04-28] MEDS: ENOXAPARIN 80 MG/0.8 ML SQ SCH ×2 (10:25→21:00)
[2018-04-28] MEDS: MAGNESIUM OXIDE 400 MG TAB PO SCH (10:27)
--- NOTE | 2018-04-28 10:44 | P.HP ---
Certification for Inpatient Patient admitted to: Inpatient With expected LOS: >2 Midnights Practitioner: I am a practitioner with admitting privileges, knowledge of patient current condition, hospital course, and medical plan of care. Services: Services provided to patient in accordance with Admission requirements found in Title 42 Section 412.3 of the Code of Federal Regulations Patient History Date of Service: 04/28/18 Reason for admission: CHEST PAIN WITH EXERSION History of Present Illness: MR. KUO IS A CAD PATIENT WHO HAS HAD EXERSIONAL ANGINA WITH WALKING A FEW STEPS FOR A LAST FEW DAYS. HE MCPHERSON HAD MULTIPLE STENTS IN THE PAST. Allergies Iodinated Contrast- Oral and IV Dye [Iodinated Contrast Media - IV Dye] Allergy (Verified 04/28/18 03:19) Anaphylaxis morphine Allergy (Verified 04/28/18 03:19) Anaphylaxis quetiapine fumarate [From Seroquel] Allergy (Verified 04/28/18 03:19) Unknown ziprasidone mesylate [From Geodon] Allergy (Verified 04/28/18 03:19) altered mental status, agitation codeine Allergy (Uncoded 04/28/18 03:19) Hives/Rash Kiwi (Actinidia Chinensi Allergy (Uncoded 04/28/18 03:19) Unknown Strawberries Allergy (Uncoded 04/28/18 03:19) Unknown Home Medications: Amlodipine Besylate 5 mg PO DAILY 07/18/14 Furosemide [Lasix*] 40 mg PO DAILY 07/18/14 Omeprazole [Prilosec] 20 mg PO DAILY 07/18/14 Potassium Chloride [Klor-Con M10] 10 meq PO DAILY 07/18/14 Sotalol HCl [Betapace] 120 mg PO DAILY 07/18/14 Aspirin [Aspirin EC 81 MG] 81 mg PO DAILY 06/17/16 Magnesium Oxide [Mag 0X Tab] 400 mg PO DAILY 04/27/18 Sotalol HCl [Sotalol] 60 mg PO BEDTIME 04/27/18 Valsartan [Diovan] 160 mg PO DAILY 04/27/18 - Past Medical/Surgical History Has patient received pneumonia vaccine in the past: No Diabetic: No -: HTN -: [place] -: melanoma on back -: a-fib -: CABG -: cardiac stents -: cholecystectomy -: back sx -: left knee replacement -: right rotator cuff sx - Family History Brother -: Heart disease, Hypertension Sister -: Hypertension - Social History Smoking Status: Never smoker Alcohol use: No CD- Drugs: No Caffeine use: Yes Place of Residence: Home Review of Systems 10-point ROS is otherwise unremarkable Physical Examination - Vital Signs Temperature: 98.5 F Blood Pressure: 122/60 Pulse: 67 Respirations: 18 Pulse Ox (%): 97 - Physical Exam General: Alert, In no apparent distress HEENT: Atraumatic, PERRLA, Mucous membr. moist/pink, EOMI, Sclerae nonicteric Neck: Supple, 2+ carotid pulse no bruit, No LAD, Without JVD or thyroid abnormality Respiratory: Clear to auscultation bilaterally, Normal air movement Cardiovascular: Regular rate/rhythm, Normal S1 S2 Gastrointestinal: Normal bowel sounds, No tenderness Musculoskeletal: No tenderness Integumentary: No rashes Neurological: Normal gait, Normal speech, Normal strength at 5/5 x4 extr, Normal tone, Normal affect Lymphatics: No axilla or inguinal lymphadenopathy - Studies Laboratory Data (last 24 hrs) 04/27/18 16:13: PT 12.4, INR 1.05 04/27/18 16:13: WBC 5.8, Hgb 13.2 L, Hct 40.3, Plt Count 140 L 04/27/18 16:13: Sodium 140, Potassium 3.9, BUN 21 H, Creatinine 1.02, Glucose 119 H, Magnesium 2.1, Total Bilirubin 0.4, AST 17, ALT 20, Alkaline Phosphatase 70 Assessment and Plan - Problems (Diagnosis) (1) Chest pain Onset Date: 05/16/17 Current Visit: No Status: Acute Plan: HE HAS A GOOD CARADIAC STORY. CHEST PAIN IS MOST LIKELY FROM CAD. MILD ELEVATED ENZYMES INDICATE NSTEMI. RESUME ASPIRIN LOVENOX OXYGEN PRN. BP PARAMETERS WRITTEN. STABLE TODAY. - Advance Directives Does patient have a Living Will: No Does patient have a Durable POA for Healthcare: No
--- NOTE | 2018-04-28 14:12 | CON ---
Chief Complaint: Chest pain. History Of Present Illness: Mr. Ramsey has a history of bypass surgery about 15 years ago. He had cardiac cath as recently as July 2017, so just about 8 or 9 months ago at that time, we found that his coronary heart disease was fairly stable. No further intervention was done. Carotid angiogram was also done. There was mild to moderate sclerosis. He did have a 70% stenosis in the right external c arotid. No carotid endarterectomy was done following this. He did not have a coronary intervention either. Actually, at that time, no coronary angiogram was done, just the carotids. His last cardiac cath was 2016. He had a patent GERARD to the LAD, diffuse small vessel disease, saphenous vein graft to the right coronary was patent, standing rock right and left coronary arteries were totally occluded. He came to the hospital because now it is just very minimal exertion. He gets tightness and pressure in the chest. Since he has been here, troponins were elevated, the highest one is only 0.48. His bypa ss surgery was roughly 15 years ago. He uses no tobacco. He has a history of CAD, diabetes, hyperte nsion, dyslipidemia, and atrial fibrillation. Outpatient Medications: Lasix, sotalol, potassium chloride, omeprazole, amlodipine, aspirin, magnesi um oxide, valsartan. I have 2 different doses of sotalol for him. I think the correct dose is 120 b .i.d. with half a pill at bedtime sometimes. Physical Examination: Vital Signs: 5 feet 9 inches, 167 pounds. HEENT: Normal. Lungs: Clear. Heart: Within normal limits. Extremities: Normal. Impression: The patient should have a cardiac cath. Between now and then, we will start to give him ranolazine to see if we can control his angina, but we will plan to do a cardiac cath on Monday [place] GUERRA/SUMAN Voice ID: [id number] Report ID: [id number]
[2018-04-28] MEDS ORDERED: SOTALOL HCL 60 MG PO SCH (21:00)
[2018-04-29] MEDS: PANTOPRAZOLE 40MG TABLET PO SCH (05:47)
[2018-04-29] MEDS: AMLODIPINE 5 MG TAB PO SCH (09:00)
[2018-04-29] MEDS: VALSARTAN 80 MG TAB PO SCH (09:00)
[2018-04-29] MEDS: ASPIRIN EC 81 MG TAB PO SCH (09:36)
[2018-04-29] MEDS: SOTALOL HCL 80 MG TAB PO SCH ×2 (09:36→20:44)
[2018-04-29] MEDS: ENOXAPARIN 80 MG/0.8 ML SQ SCH (09:37)
[2018-04-29] MEDS: MAGNESIUM OXIDE 400 MG TAB PO SCH (09:37)
--- NOTE | 2018-04-29 13:49 | P.PN ---
Subjective Date of Service: 04/29/18 Chief Complaint: CHEST PAIN WITH EXERSION Subjective: Improving, C/O voiced (CHEST PAIN ONCE LAST NIGHT FOR A FEW MINUTES , MILDER AND NO RADIATION.) Review of Systems 10-point ROS is otherwise unremarkable Physical Examination - Vital Signs Temperature: 98.1 F Blood Pressure: 116/58 Pulse: 62 Respirations: 18 Pulse Ox (%): 96 - Physical Exam General: Alert, In no apparent distress HEENT: Atraumatic, PERRLA, EOMI Neck: Supple, JVD not distended Respiratory: Clear to auscultation bilaterally, Normal air movement Cardiovascular: Regular rate/rhythm, Normal S1 S2 Gastrointestinal: Normal bowel sounds, No tenderness Musculoskeletal: No tenderness Integumentary: No rashes Neurological: Normal speech, Normal tone, Normal affect Lymphatics: No axilla or inguinal lymphadenopathy - Studies Medications List Reviewed: Yes Assessment And Plan - Current Problems (Diagnosis) (1) Chest pain Onset Date: 05/16/17 Current Visit: No Status: Acute Plan: HE HAS A GOOD CARADIAC STORY. CHEST PAIN IS MOST LIKELY FROM CAD. MILD ELEVATED ENZYMES INDICATE NSTEMI. RESUME ASPIRIN LOVENOX OXYGEN PRN. BP PARAMETERS WRITTEN. STABLE TODAY. ANGINA ONCE LAST NIGHT. MILDER. CATH IN AM.
--- NOTE | 2018-04-29 14:43 | PN ---
Mr. Ramsey is not having chest pain today. We plan to do a cardiac cath tomorrow. I strongly suspe ct he has progressive disease. He is completely graft dependent after reviewing his last films. The LAD, circumflex and right coronary arteries are all totally occluded. All blood flow to his heart de pends on the grafts. We will be ready to put a stent in the graft if it is needed. MARI/SUMAN Voice ID: [id number] Report ID: [id number]
[2018-04-30] MEDS: PANTOPRAZOLE 40MG TABLET PO SCH (05:19)
[2018-04-30] MEDS ORDERED: LIDOCAINE 1% MPF 30 ML VIAL ONE (07:30)
[2018-04-30] MEDS ORDERED: predniSONE 20 MG TAB PO ONE (07:51)
[2018-04-30] MEDS: ASPIRIN EC 81 MG TAB PO SCH (08:02)
[2018-04-30] MEDS: SOTALOL HCL 80 MG TAB PO SCH ×2 (08:03→21:24)
[2018-04-30] MEDS: MAGNESIUM OXIDE 400 MG TAB PO SCH (08:06)
--- NOTE | 2018-04-30 08:49 | EKG ---
Test Date: 2018-04-28 Test Time: 21:13:03 Erecting Crane Operator: GHAZALA MEASUREMENT RESULTS: Intervals: Rate: 55 PA: 194 QRSD: 106 QT: 472 QTc: 451 [place]: P: 26 PA: 194 QRS: 8 T: 34 INTERPRETIVE STATEMENTS: Sinus bradycardia Nonspecific T wave abnormality Abnormal ECG Compared to ECG 04/27/2018 15:22:34 No significant changes Electronically Signed On 04-30-18 08:49:04 DISTRICT OPERATIONS MANAGER by Jonathan Nash
[2018-04-30] MEDS: VALSARTAN 80 MG TAB PO SCH (09:46)
[2018-04-30] MEDS: AMLODIPINE 5 MG TAB PO SCH (09:46)
[2018-04-30] MEDS ORDERED: LIDOCAINE 1% 20 ML MDV ONE (12:04)
[2018-04-30] MEDS ORDERED: HEPA 1000U/500MLS 2,000 UNIT/1,000 ML BAG IV ONE (12:04)
[2018-04-30] MEDS ORDERED: ATROPINE SULF 1 MG/10 ML SYR IV ONE (12:05)
[2018-04-30] MEDS ORDERED: MIDAZOLAM HCL 2 MG/2 ML INJ ONE (12:11)
[2018-04-30] MEDS ORDERED: FENTANYL CITR 100 MCG/2 ML ONE (12:11)
[2018-04-30] MEDS ORDERED: NA CHLORIDE 0.9% 500 ML ONE (12:22)
[2018-04-30] MEDS ORDERED: METHYLPREDNISOLONE 125 MG INJ ONE (12:29)
[2018-04-30] MEDS ORDERED: PRASUGREL (EFFIENT) 10 MG TAB ONE (13:12)
--- NOTE | 2018-04-30 17:27 | P.PN ---
Subjective Date of Service: 04/30/18 Chief Complaint: CHEST PAIN, CATH TODAY. Subjective: Improving Review of Systems 10-point ROS is otherwise unremarkable Physical Examination - Vital Signs Temperature: 97.6 F Blood Pressure: 134/62 Pulse: 54 Respirations: 18 Pulse Ox (%): 96 - Physical Exam General: Alert, In no apparent distress HEENT: Atraumatic, PERRLA, EOMI Neck: Supple, JVD not distended Respiratory: Clear to auscultation bilaterally, Normal air movement Cardiovascular: Regular rate/rhythm, Normal S1 S2 Gastrointestinal: Normal bowel sounds, No tenderness Musculoskeletal: No tenderness Integumentary: No rashes Neurological: Normal speech, Normal tone, Normal affect Lymphatics: No axilla or inguinal lymphadenopathy - Studies Medications List Reviewed: Yes Assessment And Plan - Current Problems (Diagnosis) (1) Chest pain Onset Date: 05/16/17 Current Visit: No Status: Acute Plan: HE HAS A GOOD CARADIAC STORY. CHEST PAIN IS MOST LIKELY FROM CAD. MILD ELEVATED ENZYMES INDICATE NSTEMI. RESUME ASPIRIN LOVENOX OXYGEN PRN. BP PARAMETERS WRITTEN. STABLE TODAY. ANGINA ONCE LAST NIGHT. MILDER. CATH IN AM. HE HAD CATH TODAY WITH STENT PLACED BY DR MILLARD. DETAILS PENDING. RESUME MEDS. DC IN AM.
[2018-04-30] MEDS ORDERED: ATORVASTATIN 80 MG TAB PO SCH (21:00)
--- NOTE | 2018-04-30 23:58 | OP ---
Surgeon: Jonathan Nash MD Procedures: Left heart catheterization with coronary angiography, angiography of 2 saphenous veins t o the right coronary and obtuse marginal respectively, and angiography of the left internal mammary a rtery bypass graft to the left anterior descending. No left ventriculogram was done in order to redu ce the amount of contrast given to the patient. Procedure Findings: The patient has a 90% left main stenosis, totally occluded circumflex and LAD, a nd a totally occluded wainwright right coronary artery. The saphenous vein graft to the right coronary a rtery is free of any stenosis. The saphenous vein graft to the obtuse marginal artery had a 90% prox imal stenosis, friable lesion. The left internal mammary was free of any significant disease and gav e good blood flow to the LAD, demonstrating collateral flow on wainwright coronary injections. No left v entriculogram was done after the stent procedure. The 90% lesion in the graft that was within 15 mm of the ostium, was successfully dilated with a 3.0 x 16 Synergy stent. There was no significant sten osis. Distal runoff was normal with BELL-3 flow. One dose of nitroglycerin was given intracoronary or intragraft at the end of the procedure. Procedure In Detail: The patient was brought to the cardiac catheterization lab in a fasting state, sedated with Versed and fentanyl, and prepared and draped. Right femoral approach was used. The tis sues around the right femoral artery were anesthetized using 1% lidocaine. The artery was entered us ing an 18-gauge needle. A short J-wire was used to cannulate the artery, and we placed a 4-Taiwanese sh eath in. We angiogramed the left and right coronary arteries and grafts using a JL4 and a JR4. Once a decision was made to place a stent, we switched to a 6-Taiwanese sheath, gave Angiomax, demonstrated adequate anticoagulation. Activated clotting time was in the therapeutic range. We used a 6-Taiwanese JR4 guide to cannulate the ostium of the obtuse marginal graft. We were able to float a wire across the lesion; and then without any predilation, we used a 3.0 x 16 Synergy stent that was able to cross the lesion. It covered the entirety of it; and when inflated to 14 atmospheres, the angiographic re sult was excellent. At the end of the procedure, catheters were withdrawn out of the artery. Angiog leann were taken. A dose of nitroglycerin was given intracoronary, and then the guide catheter was re moved, and an angiogram was taken of the right femoral artery using the sheath. Adequate anatomy was seen; and when the activated clotting time is 260 seconds or less, we will deploy an Angio-Seal ailyn ce. No complications from the procedure. Estimated Blood Loss: 20 cc. Head Of Data: Shanell Patel. MARI/SUMAN Voice ID: [id number] Report ID: [id number]
[2018-05-01] MEDS: PANTOPRAZOLE 40MG TABLET PO SCH (05:30)
[2018-05-01] MEDS: SOTALOL HCL 80 MG TAB PO SCH (08:01)
[2018-05-01] MEDS: AMLODIPINE 5 MG TAB PO SCH (08:02)
[2018-05-01] MEDS: ASPIRIN EC 81 MG TAB PO SCH (08:03)
[2018-05-01] MEDS: MAGNESIUM OXIDE 400 MG TAB PO SCH (08:03)
[2018-05-01] MEDS: VALSARTAN 80 MG TAB PO SCH (08:03)
[2018-05-01] MEDS ORDERED: CLOPIDOGREL 75 MG TABLET PO SCH (09:00)
[2018-05-01 10:59] VITALS: O2SAT 97
--- NOTE | 2018-05-01 12:03 | PN ---
Mr. Ramsey is doing well. We put a stent in the graft to his obtuse marginal yesterday. He seems t o be doing well today. The procedure site looks fine. I believe he could be discharged. He does ne ed a new prescription for Plavix. I will be glad to do that or leave it to Dr. Smith, whichever is m ore convenient. He will continue on his other medicines uninterrupted, and he needs to be on a very high dose of the statin, so we will put him back on his Lipitor 80. MARI/SUMAN Voice ID: [id number] Report ID: [id number]
[2018-05-01 15:01] VITALS: BP 135/63; TEMP 98.1
--- NOTE | 2018-05-01 17:37 | P.DS ---
Admission Date: 04/27/18 Discharge Date: 05/01/18 Disposition: ROUTINE DISCHARGE Discharge Condition: FAIR Reason for Admission: CHEST PAIN, CATH TODAY. - Problems (1) Chest pain Onset Date: 05/16/17 Status: Acute Brief History of Present Illness: MR. KUO IS A CAD PATIENT WHO HAS HAD EXERSIONAL ANGINA WITH WALKING A FEW STEPS FOR A LAST FEW DAYS. HE MCPHERSON HAD MULTIPLE STENTS IN THE PAST. MR. KUO HAS DONE WITH OM STENT. HIS BP STAYED LOW SO HE IS OFF HIS BP PILLS FOR NOW. HE MAY NEED TO RESUME LATER ON THEM. Vital Signs/Physical Exam: Temp Pulse Resp BP Pulse Ox 98.1 F 67 18 135/63 95 05/01/18 12:00 05/01/18 12:00 05/01/18 12:00 05/01/18 12:00 05/01/18 12:00 Laboratory Data at Discharge: WBC 4.9 K/uL (4.3-10.9) D 04/28/18 05:33 Hgb 12.4 g/dL (13.6-17.9) L 04/28/18 05:33 Hct 37.0 % (39.6-49.0) L 04/28/18 05:33 Plt Count 142 K/uL (152-406) L 04/28/18 05:33 PT 12.4 SECONDS (9.5-12.5) 04/27/18 16:13 INR 1.05 04/27/18 16:13 Sodium 143 mmol/L (136-145) 04/28/18 05:33 Potassium 4.2 mmol/L (3.5-5.1) 04/28/18 05:33 BUN 22 mg/dL (7-18) H 04/28/18 05:33 Creatinine 1.01 mg/dL (0.55-1.3) 04/28/18 05:33 Glucose 106 mg/dL (74-106) 04/28/18 05:33 Magnesium 2.1 mg/dL (1.8-2.4) 04/27/18 16:13 Total Bilirubin 0.4 mg/dL (0.2-1.0) 04/27/18 16:13 AST 17 U/L (15-37) 04/27/18 16:13 ALT 20 U/L (12-78) 04/27/18 16:13 Alkaline Phosphatase 70 U/L (45-117) 04/27/18 16:13 Troponin I 0.43 ng/mL (0.0-0.045) H 04/28/18 00:31 Home Medications: Omeprazole [Prilosec] 20 mg PO DAILY 07/18/14 Sotalol HCl [Betapace] 120 mg PO DAILY 07/18/14 Aspirin [Aspirin EC 81 MG] 81 mg PO DAILY 06/17/16 Magnesium Oxide [Mag 0X Tab] 400 mg PO DAILY 04/27/18 Sotalol HCl [Sotalol] 60 mg PO BEDTIME 04/27/18 Atorvastatin Calcium [Lipitor] 80 mg PO BEDTIME #90 tab 05/01/18 Clopidogrel Bisulfate [Plavix] 75 mg PO DAILY #90 tablet 05/01/18 New Medications: Atorvastatin Calcium [Lipitor] 80 mg PO BEDTIME #90 tab Clopidogrel Bisulfate [Plavix] 75 mg PO DAILY #90 tablet Diet: [facility] Followup: Jeancarlos Smith MD [ACTIVE - CAN ADMIT] - 1-2 Weeks (Call for appointment) Jonathan Nash MD [ACTIVE - CAN ADMIT] - 1 Week (Call for appointment)
== END 2018-05-01 14:25 | disposition home or self-care (01) | DRG 247 ==
LOC: ER 15:06 → ERHOLD 18:53 → 2ND 19:53
PROVIDERS: ADMIT Internal Medicine; ATTEND Internal Medicine
PROC: 027034Z Dilation of Coronary Artery, One Artery with Drug-eluting Intraluminal Device, Percutaneous Approach (ICD-10-PCS; principal; 2018-04-30)
PROC: 4A023N7 Measurement of Cardiac Sampling and Pressure, Left Heart, Percutaneous Approach (ICD-10-PCS; 2018-04-30)
PROC: B211YZZ Fluoroscopy of Multiple Coronary Arteries using Other Contrast (ICD-10-PCS; 2018-04-30)
PROC: B213YZZ Fluoroscopy of Multiple Coronary Artery Bypass Grafts using Other Contrast (ICD-10-PCS; 2018-04-30)
DX: I25.110 Atherosclerotic heart disease of native coronary artery with unstable angina pectoris (principal); Z88.5 Allergy status to narcotic agent; Z88.8 Allergy status to other drugs, medicaments and biological substances; Z91.041 Radiographic dye allergy status; Z95.1 Presence of aortocoronary bypass graft; Z95.5 Presence of coronary angioplasty implant and graft; I25.2 Old myocardial infarction; Z85.820 Personal history of malignant melanoma of skin; E11.9 Type 2 diabetes mellitus without complications; I10 Essential (primary) hypertension; I48.91 Unspecified atrial fibrillation; E78.5 Hyperlipidemia, unspecified
CPT/HCPCS: 36415; 70450; 71045; 80048; 80076; 83735; 83880; 84484; 85025; 85347; 85610; 93005; 93454; 96372; 99285; C1725; C1760; C1893; C9600; J0583; J1650; J2250; J2930; J3010; J7512

== ENCOUNTER 2018-06-28 18:56 | Observation (INO) | payer OTHER ==
--- NOTE | 2018-06-28 19:50 | RAD REPORT ---
EXAM DESCRIPTION: Nicole Single View06/28/2018 7:40 pm CLINICAL HISTORY: Chest pain COMPARISON: April 2018 FINDINGS: Haziness involving the left hemithorax without significant change likely represent a combi [place] of pleural and parenchymal scarring. The lungs appear clear of acute infiltrate. The heart is mildly enlarged. Postsurgical changes involve the chest. IMPRESSION: No acute abnormalities displayed
--- NOTE | 2018-06-28 19:57 | RAD REPORT ---
EXAM DESCRIPTION: CT - Head Brain Wo Cont - 06/28/2018 7:41 pm CLINICAL HISTORY: Syncope COMPARISON: April 2018 TECHNIQUE: Computed axial tomography of the head was obtained. IV contrast was not requested. All CT scans are performed using dose optimization technique as appropriate and may include automated exposure control or mA/KV adjustment according to patient size. FINDINGS: An intracranial bleed is not seen . The ventricles are normal in caliber. Mild cerebral atrophy is seen No extra-axial fluid collection is noted. Mild low-density areas within periventricular, deep and sub cortical white matter likely represent ischemic changes secondary to small vessel disease. Fluid within the sinuses/ mastoids is not seen. IMPRESSION: No acute intracranial abnormality is seen. If patient's symptoms persist MRI of the bra in would be recommended.
[2018-06-28] MEDS ORDERED: FENTANYL CITR 100 MCG/2 ML ONE ×2 (20:07→21:26)
[2018-06-28 20:16] LABS: Absolute Lymphocytes (CBC) 0.9 K/uL (0.7-4.9); Absolute Monocytes 0.7 K/uL (0.1-1.3); Absolute Neutrophil 4.1 K/uL (1.8-8.0); Basophils % 0.5 % (0-1.3); Eosinophils % 4.4 % (0-4.4); Hematocrit 39.4 % (39.6-49.0); Lymphocytes % 15.3 % (15.3-44.8); MPV 9.5 fL (7.6-11.3); Monocytes % 11.1 % (3.3-12.3); RBC Red Blood Cell Count 4.23 M/uL (4.33-5.43)
[2018-06-28 20:28] LABS: ALT/SGPT 36 U/L (12-78); AST/SGOT 27 U/L (15-37); Albumin 3.8 g/dL (3.4-5.0); Alkaline Phosphatase 73 U/L (45-117); BUN Blood Urea Nitrogen 21 mg/dL (7-18); Bicarbonate 28 mmol/L (21-32); Bilirubin Direct 0.2 mg/dL (0-0.2); Bilirubin Total 0.6 mg/dL (0.2-1.0); Glucose Level 109 mg/dL (74-106); Magnesium 2.2 mg/dL (1.8-2.4); NT PRO-BNP 574 pg/mL (<450); Potassium 4.1 mmol/L (3.5-5.1); Protein, Total 7.8 g/dL (6.4-8.2); Sodium Level 141 mmol/L (136-145); Troponin (Emerg Dept Use Only) < 0.02 ng/mL (0.0-0.045)
[2018-06-28 20:34] LABS: Protime INR 1.09
--- NOTE | 2018-06-28 20:45 | RAD REPORT ---
EXAM DESCRIPTION: CT - Thorax Wo Con - 06/28/2018 8:22 pm CLINICAL HISTORY: Chest pain status post fall COMPARISON: None TECHNIQUE: Computed axial tomography of the chest was obtained. Contrast was not requested. All CT scans are performed using dose optimization technique as appropriate and may include automated exposure control or mA/KV adjustment according to patient size. FINDINGS: The evaluation of mediastinum, mariajose and vessels is limited secondary to lack of IV contras t administration. Nondisplaced fractures involve the left anterior third, fourth, fifth and seventh ribs. A mediastinal hematoma is not seen. A pulmonary contusion is not noted. A pneumothorax is not present. Chronic interstitial lung opacitie s. A pleural effusion is not present. A pericardial effusion is not seen IMPRESSION: Nondisplaced fractures involve the left anterior third, fourth, fifth and seventh ribs.
--- NOTE | 2018-06-28 21:15 | EDPHYS ---
Physician Documentation [facility] Name: Kuldeep Ramsey Age: 78 yrs Sex: Male : 1940 Arrival Date: 06/28/2018 Time: 18:59 Bed 4 Private MD: ED Physician Husam Horvath HPI: 06/28 19:26 This 78 yrs old Male presents to ER via EMS with complaints of Fall Injury. tw4 19:26 Details of fall: The patient fell from an upright position, while standing. Onset: The tw4 symptoms/episode began/occurred today. Associated injuries: The patient sustained injury to the chest. Severity of symptoms: At their worst the symptoms were moderate, in the emergency department the symptoms are unchanged. The patient has not experienced similar symptoms in the past. 19:30 Pt states he fell then he possibly passed out. Pt denies head injury. tw4 Historical: - Allergies: 19:05 Codeine; hb 19:05 Geodon; hb 19:05 Iodinated Contrast Media - IV Dye; hb 19:05 Morphine; hb 19:05 Seroquel; hb 19:05 Ibuprofen; hb - Home Meds: 19:05 aspirin 81 mg Oral chew 1 tab once daily [Active]; magnesium oxide 400 mg Oral cap hb daily [Active]; omeprazole 20 mg Oral TbEC daily for Gastroesophageal reflux, Heartburn [Active]; potassium chloride 10 mEq Oral cpER 1 cap once daily [Active]; sotalol 120 mg Oral tab 0.5 tab 2 times per day [Active]; 20:05 Lipitor 80 mg Oral tab nightly [Active]; Plavix 75 mg Oral tab 1 tab once daily lp1 [Active]; - PMHx: 19:05 Hypertension; Myocardial infarction; hb - PSHx: 19:05 Triple bypass; cardiac stents; leg stents; hb - Immunization history: Last tetanus immunization: < 10 years ago. - Social history:: Smoking status: Patient/guardian denies using tobacco. - Ebola Screening: : No symptoms or risks identified at this time. ROS: 19:26 Constitutional: Negative for fever, chills, and weight loss, Eyes: Negative for injury, tw4 pain, redness, and discharge, Respiratory: Negative for shortness of breath, cough, wheezing, and pleuritic chest pain, Abdomen/GI: Negative for abdominal pain, nausea, vomiting, diarrhea, and constipation, Back: Negative for injury and pain, MS/Extremity: Negative for injury and deformity, Skin: Negative for injury, rash, and discoloration. 19:26 Neuro: Positive for syncope, Negative for altered mental status, dizziness, gait disturbance, headache, hearing loss, numbness, seizure activity, tinnitus, tremor, visual changes. Exam: 19:26 Constitutional: This is a well developed, well nourished patient who is awake, alert, tw4 and in no acute distress. Head/Face: Normocephalic, atraumatic. Respiratory: Lungs have equal breath sounds bilaterally, clear to auscultation and percussion. No rales, rhonchi or wheezes noted. No increased work of breathing, no retractions or nasal flaring. Abdomen/GI: Soft, non-tender, with normal bowel sounds. No distension or tympany. No guarding or rebound. No evidence of tenderness throughout. Back: No spinal tenderness. No costovertebral tenderness. Full range of motion. MS/ Extremity: Pulses equal, no cyanosis. Neurovascular intact. Full, normal range of motion. 19:26 Neuro: Orientation: is normal, Mentation: is normal, Memory: is normal. Vital Signs: 19:01 BP 175 / 96; Pulse 60; Resp 17; Temp 97.9; Pulse Ox 98% on R/A; Pain 10/10; hb 20:00 BP 170 / 76; Pulse 66; Resp 14; Pulse Ox 99% on R/A; lp1 21:00 BP 167 / 70; Pulse 66; Resp 22; Pulse Ox 97% on R/A; lp1 22:00 BP 153 / 93; Pulse 57; Resp 17; Pulse Ox 97% on R/A; lp1 23:00 BP 162 / 70; Pulse 57; Resp 17; Pulse Ox 97% on R/A; lp1 23:34 BP 175 / 71; Pulse 62; Resp 20; Pulse Ox 98% on R/A; lp1 [place] Coma Score: 19:11 Eye Response: spontaneous(4). Verbal Response: oriented(5). Motor Response: obeys lp1 commands(6). Total: 15. Trauma Score (Adult): 19:01 Eye Response: spontaneous(1); Verbal Response: oriented(1); Motor Response: obeys hb commands(2); Systolic BP: > 89 mm Hg(4); Respiratory Rate: 10 to 29 per min(4); Nuno Score: 15; Trauma Score: 12 20:00 Eye Response: spontaneous(1); Verbal Response: oriented(1); Motor Response: obeys lp1 commands(2); Systolic BP: > 89 mm Hg(4); Respiratory Rate: 10 to 29 per min(4); Nuno Score: 15; Trauma Score: 12 MDM: 19:16 Patient medically screened. 06/29 04:59 Differential diagnosis: abrasion, closed head injury, contusion. Data reviewed: vital tw4 signs, nurses notes. Data interpreted: monitor worker: rhythm is normal sinus rhythm. Test interpretation: by ED physician or midlevel provider: ECG, plain radiologic studies. Counseling: I had a detailed discussion with the patient and/or guardian regarding: the historical points, exam findings, and any diagnostic results supporting the discharge/admit diagnosis. Physician consultation: Jeancarlos Smith MD regarding admission, patient's condition, and will see patient in inpatient room. Admission orders: after a detailed discussion of the patient's condition and case, the admit orders are written by me. 06/28 19:30 Order name: Basic Metabolic Panel; Complete Time: 21:12 [facility] 06/28 21:12 Interpretation: Normal except: CL 108; GLUC 109; BUN 21; GFR 62. [facility] 06/28 19:30 Order name: CBC with Diff; Complete Time: 21:12 [facility] 06/28 21:12 Interpretation: Normal except: RBC 4.23; HGB 12.7; HCT 39.4; MCHC 32.3. 06/28 19:30 Order name: LFT's; Complete Time: 21:12 [facility] 06/28 19:30 Order name: Magnesium 06/28 19:30 Order name: NT PRO-BNP; Complete Time: 21:12 [facility] 06/28 21:12 Interpretation: Normal except: NT PRO-BNP 574. [facility] 06/28 19:30 Order name: PT-INR [facility] 06/28 19:30 Order name: Troponin (emerg Dept Use Only) [facility] 06/28 22:55 Order name: Basic Metabolic Panel [facility] 06/28 22:55 Order name: Basic Metabolic Panel [facility] 06/28 22:55 Order name: CBC with Automated Diff [facility] 06/28 22:55 Order name: CBC with Automated Diff [facility] 06/28 22:55 Order name: Troponin I [facility] 06/28 22:55 Order name: Troponin I [facility] 06/28 22:55 Order name: Troponin I [facility] 06/28 19:09 Order name: XRAY Chest (1 view) rn 06/28 19:10 Order name: EKG - Nurse/Tech; Complete Time: 19:27 rn 06/28 19:10 Order name: EKG; Complete Time: 19:10 rn 06/28 19:30 Order name: Cardiac monitoring; Complete Time: 19:45 tw4 06/28 19:30 Order name: IV Saline Lock; Complete Time: 20:02 tw4 06/28 19:30 Order name: Labs collected and sent; Complete Time: 20:02 tw4 06/28 19:32 Order name: CT Head Brain wo Cont tw4 06/28 19:54 Order name: CT Chest Wo Con; Complete Time: 00:02 tw4 06/28 22:55 Order name: EKG Electrocardiogram [facility] 06/28 22:55 Order name: EKG Electrocardiogram [facility] 06/28 22:55 Order name: EKG Electrocardiogram [facility] 06/28 22:55 Order name: EKG Electrocardiogram [facility] 06/28 19:30 Order name: O2 Per Protocol; Complete Time: 19:45 tw4 06/28 19:30 Order name: O2 Sat Monitoring; Complete Time: 19:45 tw4 EC:05 Rate is 59 beats/min. Rhythm is regular. QRS [place] is Normal. CO interval is normal. QRS tw4 interval is normal. QT interval is normal. No Q waves. T waves are Normal. No ST changes noted. Clinical impression: Normal ECG. Interpreted by me. Reviewed by me. Administered Medications: 06/28 20:01 Drug: fentaNYL (PF) 25 mcg Route: IVP; Site: right forearm; lp1 20:30 Follow up: Response: No adverse reaction; Pain is decreased lp1 21:22 Drug: fentaNYL (PF) 25 mcg Route: IVP; Site: right forearm; lp1 22:00 Follow up: Response: Pain is decreased lp1 22:44 Drug: Lipitor 80 mg Route: PO; ak1 06/29 00:12 Follow up: Response: No adverse reaction lp1 0411 23:23 Not Given (Not available; Patient took home med of Sotalol ): Sotalol 60 mg PO once lp1 Disposition: 06/28/18 21:14 Hospitalization ordered by Jeancarlos Smith for Observation. Preliminary diagnosis are Syncope and collapse, Multiple fractures of ribs, left side. - Bed requested for Telemetry/MedSurg (Inpatient). - Status is Observation. lp1 - Condition is Stable. - Problem is new. - Symptoms have improved. UTI on Admission? No Signatures: Dispatcher [employer] EDMS Alla Nath RN RN Geremais Hammre MD MD rn Pena, Laura, RN RN lp1 Jazmin Ortiz RN TATI ak1 Marizol Andrews RN RN Husam Horvath MD MD tw4 Corrections: (The following items were deleted from the chart) 19:28 19:26 Constitutional: Negative for fever, chills, and weight loss, Respiratory: tw4 Negative for shortness of breath, cough, wheezing, and pleuritic chest pain, Abdomen/GI: Negative for abdominal pain, nausea, vomiting, diarrhea, and constipation, Back: Negative for injury and pain, MS/Extremity: Negative for injury and deformity, Skin: Negative for injury, rash, and discoloration, Neuro: Negative for headache, weakness, numbness, tingling, and seizure, tw4 20:05 19:05 Home Meds: amlodipine 5 mg tab 1 tab once daily; lp1 20:05 19:05 Home Meds: Lasix 40 mg Oral tab 1 tab once daily; lp1 20:05 19:05 Home Meds: valsartan 160 mg Oral tab 1 tab once daily; hb lp1 23:12 21:14 Hospitalization Ordered by Jeancarlos Smith MD for Observation. Preliminary diagnosis mw is Syncope and collapse; Multiple fractures of ribs, left side. Bed requested for Telemetry/MedSurg (Inpatient). Status is Observation. Condition is Stable. Problem is new. Symptoms have improved. UTI on Admission? No. tw4 06/29 00:11 06/28 23:12 06/28/2018 21:14 Hospitalization Ordered by Jeancarlos Smith MD for lp1 Observation. Preliminary diagnosis is Syncope and collapse; Multiple fractures of ribs, left side. Bed requested for Telemetry/MedSurg (Inpatient). Status is Observation. Condition is Stable. Problem is new. Symptoms have improved. UTI on Admission? No. mw
--- NOTE | 2018-06-28 21:15 | ER ---
Nurse's Notes [facility] Name: Kuldeep Ramsey Age: 78 yrs Sex: Male : 1940 Arrival Date: 06/28/2018 Time: 18:59 Bed 4 Private MD: Diagnosis: Syncope and collapse;Multiple fractures of ribs, left side Presentation: 06/28 18:59 Presenting complaint: EMS states: Mechanical fall from standing while working in yard, hb landed on left sided, c/o left sided chest wall pain 12/27. VS WNL. Denies LOC. Takes ASA. Care prior to arrival: None. Mechanism of Injury: Fall from standing position. Trauma event details: Injury occurred in the [facility], Injury occurred: at home. Injury occurred: June 28, 2018. 18:59 Method Of Arrival: EMS: [facility] hb 18:59 Acuity: JEREMÍAS 2 hb 19:12 Risk Assessment: Do you want to hurt yourself or someone else? Patient reports no lp1 desire to harm self or others. Initial Sepsis Screen: Does the patient meet any 2 criteria? No. Patient's initial sepsis screen is negative. Does the patient have a suspected source of infection? No. Patient's initial sepsis screen is negative. 20:05 Transition of care: patient was not received from another setting of care. Onset of lp1 symptoms was June 28, 2018. Trauma Activation: Alert Physician: ED Physician; Name: ; Notified At: ; Arrived At: Physician: General Surgeon; Name: ; Notified At: ; Arrived At: Physician: Radiology; Name: ; Notified At: ; Arrived At: Physician: Respiratory; Name: ; Notified At: ; Arrived At: Physician: Lab; Name: ; Notified At: ; Arrived At: Historical: - Allergies: 19:05 Codeine; hb 19:05 Geodon; hb 19:05 Iodinated Contrast Media - IV Dye; hb 19:05 Morphine; hb 19:05 Seroquel; hb 19:05 Ibuprofen; hb - Home Meds: 19:05 aspirin 81 mg Oral chew 1 tab once daily [Active]; magnesium oxide 400 mg Oral cap hb daily [Active]; omeprazole 20 mg Oral TbEC daily for Gastroesophageal reflux, Heartburn [Active]; potassium chloride 10 mEq Oral cpER 1 cap once daily [Active]; sotalol 120 mg Oral tab 0.5 tab 2 times per day [Active]; 20:05 Lipitor 80 mg Oral tab nightly [Active]; Plavix 75 mg Oral tab 1 tab once daily lp1 [Active]; - PMHx: 19:05 Hypertension; Myocardial infarction; hb - PSHx: 19:05 Triple bypass; cardiac stents; leg stents; hb - Immunization history: Last tetanus immunization: < 10 years ago. - Social history:: Smoking status: Patient/guardian denies using tobacco. - Ebola Screening: : No symptoms or risks identified at this time. Screenin:02 Abuse screen: Denies threats or abuse. Denies injuries from another. Tuberculosis hb screening: No symptoms or risk factors identified. 20:05 Nutritional screening: No deficits noted. Fall Risk Total [place] Fall Scale indicates lp1 High Risk Score (45 or more points). Fall prevention measures have been instituted. Side Rails Up X 2 Family Present and informed to notify staff if the need to leave the bedside As available patient and family educated on Fall Prevention Program and Strategies. Primary Survey: 19:03 NO uncontrolled hemorrhage observed. A: The patient is alert. Airway: patent, No hb supplemental oxygen in use on arrival. Breathing/Chest: Respiratory pattern: regular, Respiratory effort: spontaneous, unlabored, Breath sounds: clear, bilaterally. Chest inspection: symmetrical rise and fall of the chest. Circulation: Skin color: pink, Skin temperature: warm, dry. Disability Alert. Exposure/Environment: There is no evidence of uncontrolled external bleeding. A warming method has been applied: A warm blanket has been provided to the patient. 20:02 Reassessment Breathing/Chest Respiratory pattern Regular Respiratory effort Spontaneous lp1 Unlabored Breath sounds Clear Chest inspection Symmetrical Other Patient reports pain on respiration and cough. Secondary Survey: 20:30 HEENT: No deficits noted. Gastrointestinal: No deficits noted. : No deficits noted. lp1 Musculoskeletal: Reports pain in chest. Assessment: 19:09 General: Appears uncomfortable, Behavior is appropriate for age. Pain: Complains of lp1 pain in left breast, left shoulder. Neuro: Level of Consciousness is awake, alert, obeys commands, Oriented to person, place, time, situation. EENT: No deficits noted. Cardiovascular: Patient's skin is warm and dry. Respiratory: Airway is patent Respiratory effort is even, unlabored, Respiratory pattern is regular, symmetrical, Breath sounds are clear bilaterally. GI: Abdomen is non-distended. : No signs and/or symptoms were reported regarding the genitourinary system. Derm: Skin is pink, warm \T\ dry. Musculoskeletal: Circulation, motion, and sensation intact. 19:50 Reassessment: Provider notified of patient complaint of pain to left side of center of lp1 chest. 21:15 Reassessment: Patient and/or family updated on plan of care and expected duration. Pain lp1 level reassessed. Patient complaint of pain returning to chest at this time; aggravated by coughing, respirations. 22:00 Reassessment: Patient appears in no apparent distress at this time. Patient and/or lp1 family updated on plan of care and expected duration. Pain level reassessed. Patient and family aware of pending admission. 23:24 Reassessment: Patient ambulated to bathroom, assisted by family member. Neuro: Gait is lp1 steady. Vital Signs: 19:01 BP 175 / 96; Pulse 60; Resp 17; Temp 97.9; Pulse Ox 98% on R/A; Pain 10/10; hb 20:00 BP 170 / 76; Pulse 66; Resp 14; Pulse Ox 99% on R/A; lp1 21:00 BP 167 / 70; Pulse 66; Resp 22; Pulse Ox 97% on R/A; lp1 22:00 BP 153 / 93; Pulse 57; Resp 17; Pulse Ox 97% on R/A; lp1 23:00 BP 162 / 70; Pulse 57; Resp 17; Pulse Ox 97% on R/A; lp1 23:34 BP 175 / 71; Pulse 62; Resp 20; Pulse Ox 98% on R/A; lp1 [place] Coma Score: 19:11 Eye Response: spontaneous(4). Verbal Response: oriented(5). Motor Response: obeys lp1 commands(6). Total: 15. Trauma Score (Adult): 19:01 Eye Response: spontaneous(1); Verbal Response: oriented(1); Motor Response: obeys hb commands(2); Systolic BP: > 89 mm Hg(4); Respiratory Rate: 10 to 29 per min(4); Nuno Score: 15; Trauma Score: 12 20:00 Eye Response: spontaneous(1); Verbal Response: oriented(1); Motor Response: obeys lp1 commands(2); Systolic BP: > 89 mm Hg(4); Respiratory Rate: 10 to 29 per min(4); [place] Score: 15; Trauma Score: 12 ED Course: 18:59 Patient arrived in ED. hb 19:01 Triage completed. hb 19:03 Arm band placed on. hb 19:06 Patient maintains SpO2 saturation greater than 95% on room air. Thermoregulation: warm hb blanket given to patient. 19:09 Pauline Frausto, RN is Primary Nurse. lp1 19:11 Patient has correct armband on for positive identification. Placed in gown. Bed in low lp1 position. Call light in reach. Side rails up X2. Patient maintains SpO2 saturation greater than 95% on room air. gambling monitor on. Pulse ox on. NIBP on. 19:16 Husam Horvath MD is Attending Physician. tw4 19:27 EKG done, by ED staff, reviewed by Husam Horvath MD. lp1 19:41 XRAY Chest (1 view) In Process Unspecified. EDMS 19:42 CT completed. Patient tolerated procedure well. Patient moved back from CT. nj 19:42 CT Head Brain wo Cont In Process Unspecified. EDMS 20:02 Inserted saline lock: 20 gauge in right forearm, using aseptic technique. Blood lp1 collected. By MAGDY Dean. 20:22 CT Chest Wo Con In Process Unspecified. EDMS 20:22 CT completed. Patient tolerated procedure well. Patient moved back from CT. vm2 21:13 Jeancarlos Smith MD is Hospitalizing Provider. tw4 21:25 No provider procedures requiring assistance completed. Patient admitted, IV remains in lp1 place. Administered Medications: 20:01 Drug: fentaNYL (PF) 25 mcg Route: IVP; Site: right forearm; lp1 20:30 Follow up: Response: No adverse reaction; Pain is decreased lp1 21:22 Drug: fentaNYL (PF) 25 mcg Route: IVP; Site: right forearm; lp1 22:00 Follow up: Response: Pain is decreased lp1 22:44 Drug: Lipitor 80 mg Route: PO; ak1 06/29 00:12 Follow up: Response: No adverse reaction lp1 06/28 23:23 Not Given (Not available; Patient took home med of Sotalol ): Sotalol 60 mg PO once lp1 Output: 20:00 Urine: 250ml (Voided); Total: 250ml. lp1 Outcome: 21:14 Decision to Hospitalize by Provider. tw4 21:26 Condition: stable lp1 21:26 Instructed on the need for admit. 21:30 Patient's length of stay in the Emergency Department was greater than 2 hours. pending lp1 admissionPatient's length of stay extended due to 23:33 Admitted to Med/surg accompanied by tech, via wheelchair, room 224, with chart, Report lp1 called to TATI Austin 06/29 00:11 Patient left the ED. lp1 Signatures: Dispatcher [employer] EDMS Pauline Frausto RN RN lp1 Jazmin Ortiz RN RN ak1 Marizol Andrews RN RN [facility] Husam Horvath MD MD tw4 Corrections: (The following items were deleted from the chart) 06/28 19:04 18:59 Acuity: JEREMÍAS 3 [facility] 19:06 18:59 Presenting complaint: EMS states: Mechanical fall from standing while working in yard, landed on left sided, c/o left sided chest wall pain 12/27. VS WNL. Denies LOC. Does not take blood thinners. 20:05 19:05 Home Meds: amlodipine 5 mg tab 1 tab once daily; [facility] 20:05 19:05 Home Meds: Lasix 40 mg Oral tab 1 tab once daily; lp1 20:05 19:05 Home Meds: valsartan 160 mg Oral tab 1 tab once daily; [facility]
[2018-06-28] MEDS ORDERED: ATORVASTATIN 20 MG TAB ONE (22:52)
[2018-06-28] MEDS ORDERED: ACETAMINOPHEN 500 MG TAB PO PRN (22:53)
[2018-06-29 00:25] VITALS: BMI 25.6
[2018-06-29] MEDS: FENTANYL CITR 100 MCG/2 ML IV PRN ×3 (00:39→21:38)
[2018-06-29 04:54] LABS: Absolute Lymphocytes (CBC) 0.8 K/uL (0.7-4.9); Absolute Monocytes 0.6 K/uL (0.1-1.3); Absolute Neutrophil 4.1 K/uL (1.8-8.0); Basophils % 0.2 % (0-1.3); Eosinophils % 0.9 % (0-4.4); Lymphocytes % 13.9 % (15.3-44.8); MPV 10.3 fL (7.6-11.3); Monocytes % 10.8 % (3.3-12.3)
[2018-06-29 04:58] LABS: Potassium 4.2 mmol/L (3.5-5.1)
[2018-06-29 05:30] LABS: Urine Appearance CLEAR; Urine Bilirubin NEGATIVE (NEG); Urine Blood 1+ (NEG); Urine Color YELLOW; Urine Glucose 1+ (NEG); Urine Protein 1+ (NEG); Urine Urobilinogen 0.2 mg/dL (0.2-1.0); Urine pH 5.5 (5.0-7.0)
[2018-06-29 05:34] LABS: Urine Microscopic Reflex ORDER UMIC
[2018-06-29 06:08] LABS: Urine Culture Reflex Order NOT NEEDED; Urine RBC <5 /HPF (NONE SEEN)
[2018-06-29 06:09] LABS: Urine Bacteria <20 /HPF (NONE SEEN)
--- NOTE | 2018-06-29 07:44 | EKG ---
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
[2018-06-29] MEDS ORDERED: ASPIRIN EC 81 MG TAB PO SCH (09:00)
--- NOTE | 2018-06-29 10:52 | RAD REPORT ---
EXAM DESCRIPTION: MRI - Brain W/Wo Cont - 06/29/2018 10:31 am CLINICAL HISTORY: Syncope, stroke protocol study, weakness COMPARISON: CT head June 28 TECHNIQUE: Sagittal and axial T1-weighted images were obtained. Axial PD/heavily T2-weighted and T2- FLAIR images were obtained along with axial DWI/ADC mapping sequences. Coronal heavily T2 weighted s equence obtained. Axial and coronal post-contrast T1-weighted images were also obtained. A 17 ml Mul tihance contrast following utilized. FINDINGS: No intracranial hemorrhage, mass or acute infarction. There is no edema or shift of midli ne structures. No extra-axial fluid collections. [place]ck[place]-matter/white matter junction is preserved. Sig nal voids are seen as a normal finding in the major intracranial vessels. Atrophy changes are mild. V entricles are in proportion to the amount of volume loss. Patient has very little chronic ischemic ch charles in the cerebral white matter and brainstem. No globe or orbital content acute finding. No sella or supra sella abnormality. Choroid plexus cysts are noted as an incidental finding. Post-contrast images show normal enhancement. No dural thickening. No acute mastoid or paranasal sinus finding. IMPRESSION: No acute infarction changes are present. No acute intracranial finding seen. Patient has mild atrophy and almost no chronic ischemic change.
--- NOTE | 2018-06-29 10:54 | RAD REPORT ---
EXAM DESCRIPTION: MRI - MRA Head Wo Cont - 06/29/2018 10:31 am CLINICAL HISTORY: Syncope, fall, stroke protocol COMPARISON: CT head June 28, MR head June 29 TECHNIQUE: Axial and coronal 3D [id number] image acquisition was performed. 3D rotational images were generated with source and reconstruction images reviewed. Horizontal and vertical axis rotation al views generated using MIP protocol. FINDINGS: No aneurysm or vascular malformation. No vasculitis or other diffuse vascular process seen . Patient has little or no measurable atherosclerotic change in the vasculature. Basilar and distal v ertebral arteries are tortuous but otherwise unremarkable. No internal carotid artery dissection or s tenosis. Left vertebral artery is dominant. IMPRESSION: Patient has little if any measurable atherosclerotic change in the vasculature. No occlu miri or suspicious finding. No aneurysm or vascular malformation.
--- NOTE | 2018-06-29 10:57 | RAD REPORT ---
EXAM DESCRIPTION: MRI - MRA Neck W/Wo Cont - 06/29/2018 10:31 am CLINICAL HISTORY: Syncope, stroke protocol, extremity weakness, fall COMPARISON: None. TECHNIQUE: Axial and coronal 3D [id number] image acquisition was performed. 3D rotational images were generated with source and reconstruction images reviewed. Horizontal and vertical axis rotation al views generated using MIP protocol. FINDINGS: Aortic arch is 3 vessel. Innominate and left common carotid origins are clear. Left subcla vian origin was obscured by the edge of the field artifact. Great vessels are tortuous near the origi n. No stenosis or suspicious finding to either common carotid artery. No dissection, aneurysm or vasc ular malformation. Atherosclerotic changes are present at each carotid bulb. On the left the stenosis is 20- 30% maximum. A more irregular atherosclerotic narrowing is present in the right carotid bulb estimated 60- 70%. More distally the internal carotid artery's are without significant finding. Left vertebral artery is dominant with minimal atherosclerotic change in the mid left vertebral arter y. No acute vertebral artery finding. IMPRESSION: Significant atherosclerotic changes are present at each carotid bulb estimated at 60- 70 % stenosis on the right and 20- 30% stenosis on the left. No dissection. No aneurysm or vascular malformation.
--- NOTE | 2018-06-29 15:19 | P.HP ---
Certification for Inpatient Patient admitted to: Observation With expected LOS: <2 Midnights Practitioner: I am a practitioner with admitting privileges, knowledge of patient current condition, hospital course, and medical plan of care. Services: Services provided to patient in accordance with Admission requirements found in Title 42 Section 412.3 of the Code of Federal Regulations Patient History Date of Service: 06/29/18 Reason for admission: TOTAL SYNCOPE History of Present Illness: MR. KUO HAS KNOWN CAD WITH CABG AND RECENT STENT. HE WHILE IN [place] HAD TOTAL AND WITNESSED SYNCOPE. HE FELL ON L SIDE AND BROKE L RIBS. 3 OF THEM. HE IS BACK TO HIS BASELINE. Allergies Iodinated Contrast- Oral and IV Dye [Iodinated Contrast Media - IV Dye] Allergy (Verified 06/29/18 00:29) Anaphylaxis morphine Allergy (Verified 06/29/18 00:29) Anaphylaxis quetiapine fumarate [From Seroquel] Allergy (Verified 06/29/18 00:29) Unknown ziprasidone mesylate [From Geodon] Allergy (Verified 06/29/18 00:29) altered mental status, agitation codeine Allergy (Uncoded 06/29/18 00:29) Hives/Rash Kiwi (Actinidia Chinensi Allergy (Uncoded 06/29/18 00:29) Unknown Strawberries Allergy (Uncoded 06/29/18 00:29) Unknown Home Medications: Omeprazole [Prilosec] 20 mg PO DAILY 07/18/14 Sotalol HCl [Betapace] 120 mg PO DAILY 07/18/14 Aspirin [Aspirin EC 81 MG] 81 mg PO DAILY 06/17/16 Magnesium Oxide [Mag 0X Tab] 400 mg PO DAILY 04/27/18 Sotalol HCl [Sotalol] 60 mg PO BEDTIME 04/27/18 Atorvastatin Calcium [Lipitor] 80 mg PO BEDTIME #90 tab 05/01/18 Clopidogrel Bisulfate [Plavix] 75 mg PO DAILY #90 tablet 05/01/18 - Past Medical/Surgical History Has patient received pneumonia vaccine in the past: No Diabetic: No -: HTN -: CA -: melanoma on back -: a-fib -: CABG -: cardiac stents -: cholecystectomy -: back sx -: left knee replacement -: right rotator cuff sx - Family History Brother -: Heart disease, Hypertension Sister -: Hypertension - Social History Smoking Status: Never smoker Alcohol use: No CD- Drugs: No Caffeine use: Yes Place of Residence: Home Review of Systems 10-point ROS is otherwise unremarkable General: Weakness Respiratory: As per HPI Physical Examination - Vital Signs Temperature: 97.7 F Blood Pressure: 140/80 Pulse: 60 Respirations: 17 Pulse Ox (%): 96 - Physical Exam General: Alert, Oriented x3, Moderate distress (L RIB CAGE PAIN.) HEENT: Atraumatic, PERRLA, Mucous membr. moist/pink, EOMI, Sclerae nonicteric Neck: Supple, 2+ carotid pulse no bruit, No LAD, Without JVD or thyroid abnormality Respiratory: Clear to auscultation bilaterally, Normal air movement Cardiovascular: Regular rate/rhythm, Normal S1 S2 Gastrointestinal: Normal bowel sounds, No tenderness Musculoskeletal: No tenderness Integumentary: No rashes Neurological: Normal gait, Normal speech, Normal strength at 5/5 x4 extr, Normal tone, Normal affect Lymphatics: No axilla or inguinal lymphadenopathy - Studies Laboratory Data (last 24 hrs) 06/28/18 19:57: PT 12.8 H, INR 1.09 06/28/18 19:57: WBC 6.0, Hgb 12.7 L, Hct 39.4 L, Plt Count 122 L 06/28/18 19:57: Sodium 141, Potassium 4.1, BUN 21 H, Creatinine 1.15, Glucose 109 H, Magnesium 2.2, Total Bilirubin 0.6, AST 27, ALT 36, Alkaline Phosphatase 73 Assessment and Plan - Problems (Diagnosis) (1) Syncope Current Visit: Yes Status: Acute Plan: HE IS HIGH RISK FOR V FIB.. DR. BURT ON THE CASE. HE WILL SEE HIM. HE MAY HAVE TO STAY HERE UNTIL SEEN BY EPS . (2) Coronary artery disease involving autologous artery coronary bypass graft Current Visit: Yes Status: Acute - Advance Directives Does patient have a Living Will: No Does patient have a Durable POA for Healthcare: No
[2018-06-29] MEDS ORDERED: ATORVASTATIN 80 MG TAB PO SCH (21:00)
[2018-06-29] MEDS ORDERED: SOTALOL HCL 60 MG PO SCH (21:00)
[2018-06-29] MEDS ORDERED: SOTALOL HCL 80 MG TAB PO SCH (21:00)
[2018-06-29 21:29] VITALS: O2SAT 94
[2018-06-30] MEDS: FENTANYL CITR 100 MCG/2 ML IV PRN ×2 (06:05→11:02)
[2018-06-30] MEDS ORDERED: PANTOPRAZOLE 40MG TABLET PO SCH (07:30)
[2018-06-30 08:24] VITALS: TEMP 97.7
[2018-06-30 08:46] VITALS: BP 164/72
[2018-06-30] MEDS ORDERED: MAGNESIUM OXIDE 400 MG TAB PO SCH (09:00)
[2018-06-30] MEDS ORDERED: SOTALOL HCL 80 MG TAB PO SCH (09:00)
[2018-06-30] MEDS ORDERED: SOTALOL HCL 120 MG PO SCH (09:00)
[2018-06-30] MEDS ORDERED: ASPIRIN EC 81 MG TAB PO SCH (09:00)
[2018-06-30] MEDS ORDERED: CLOPIDOGREL 75 MG TABLET PO SCH (09:00)
[2018-06-30] MEDS ORDERED: HOME MED 1 EA UNK (Omeprazole [Prilosec] 20 MG) PO SCH (09:00)
--- NOTE | 2018-06-30 09:47 | EKG ---
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
--- NOTE | 2018-06-30 10:49 | P.DS ---
Admission Date: 06/28/18 Discharge Date: 06/30/18 Disposition: ROUTINE DISCHARGE Reason for Admission: TOTAL SYNCOPE - Problems (1) Syncope Current Visit: Yes Status: Acute (2) Coronary artery disease involving autologous artery coronary bypass graft Current Visit: Yes Status: Acute Brief History of Present Illness: MR. KUO HAS KNOWN CAD WITH CABG AND RECENT STENT. HE WH[place] IN [place] HAD TOTAL AND WITNESSED SYNCOPE. HE FELL ON L SIDE AND BROKE L RIBS. 3 OF THEM. HE IS BACK TO HIS BASELINE. MR. KUO IS DOING WELL. DR Donald BURT HAS REDUCED SOTALOL AND WILL DO OUTPATIENT EPS WITH DR. LIZARRAGA. HE IS STABLE TO BE DISCHARGED. Vital Signs/Physical Exam: Temp Pulse Resp BP Pulse Ox 97.7 F 60 20 164/72 H 95 06/30/18 08:00 06/30/18 08:00 06/30/18 08:00 06/30/18 08:46 06/30/18 08:00 Laboratory Data at Discharge: WBC 5.5 K/uL (4.3-10.9) 06/29/18 03:51 Hgb 12.1 g/dL (13.6-17.9) L 06/29/18 03:51 Hct 37.0 % (39.6-49.0) L 06/29/18 03:51 Plt Count 125 K/uL (152-406) L 06/29/18 03:51 PT 12.8 SECONDS (9.5-12.5) H 06/28/18 19:57 INR 1.09 06/28/18 19:57 Sodium 143 mmol/L (136-145) 06/29/18 03:51 Potassium 4.2 mmol/L (3.5-5.1) 06/29/18 03:51 BUN 20 mg/dL (7-18) H 06/29/18 03:51 Creatinine 1.03 mg/dL (0.55-1.3) 06/29/18 03:51 Glucose 184 mg/dL (74-106) H 06/29/18 03:51 Magnesium 2.2 mg/dL (1.8-2.4) 06/28/18 19:57 Total Bilirubin 0.6 mg/dL (0.2-1.0) 06/28/18 19:57 AST 27 U/L (15-37) 06/28/18 19:57 ALT 36 U/L (12-78) 06/28/18 19:57 Alkaline Phosphatase 73 U/L (45-117) 06/28/18 19:57 Troponin I < 0.02 ng/mL (0.0-0.045) 06/29/18 03:51 Home Medications: Omeprazole [Prilosec] 20 mg PO DAILY 07/18/14 Aspirin [Aspirin EC 81 MG] 81 mg PO DAILY 06/17/16 Magnesium Oxide [Mag 0X Tab] 400 mg PO DAILY 04/27/18 Atorvastatin Calcium [Lipitor] 80 mg PO BEDTIME #90 tab 05/01/18 Clopidogrel Bisulfate [Plavix] 75 mg PO DAILY #90 tablet 05/01/18 Sotalol HCl [Sotalol] 80 mg PO BID #30 tablet 06/30/18 New Medications: Sotalol HCl [Sotalol] 80 mg PO BID #30 tablet Followup: Hu Burt MD [ACTIVE - CAN ADMIT] - 1-2 Weeks
--- NOTE | 2018-07-01 22:54 | CON ---
Date of Consultation: 06/30/2018 Reason For Consultation: Syncope. History Of Present Illness: Mr. Ramsey is a 78-year-old [place] male. He is very well known to me from previous office visits and admissions. He has a history of hypertension, paroxysmal atri al fibrillation, coronary artery disease status post CABG. He is also status post recent stent of th e OM graft in April of 2018. He was working in the yard and walking back to the house, and had a sudden syncopal episode. No symptoms prior to the episode and no symptoms afterwards. No postictal symptoms reported. No incontinence. Denied any chest pain, nausea, vomiting, diaphoresis, PND, orth opnea, pedal edema, or palpitations. The patient had some abrasions on the skin. By the time I saw him, he has already had a negative CT scan of the head, negative MRA and chest x-ray, EKG and labs. He is asymptomatic now. Telemetry shows sinus rhythm. QT was not prolonged. Past Medical History: As stated above. Allergies: CODEINE, IODINE, MORPHINE, SEROQUEL, AND MOTRIN. Review of Systems: Negative. Social History: Negative. Family History: Noncontributory. Medications: At home include aspirin, Plavix, Prilosec, potassium, Lipitor. He takes sotalol 120 in the morning and 80 in the evening. Physical Examination: Vital signs: Stable. He was afebrile. He was in no acute distress. HEENT: Negative. Neck: Supple without any bruit, lymphadenopathy, JVD, or thyromegaly. Chest: Clear to auscultation and percussion. Cardiac: Exam revealed a regular rhythm and rate without any murmurs, gallops, or rubs. Abdomen: Benign. Extremities: Revealed no clubbing, cyanosis, or edema. Skin: Dry and intact. Extremities: Pulses were present at the dorsalis pedis, posterior tibial bilaterally and symmetricall y. Diagnostic Data: As stated earlier. Impression And Plan: 1.Syncope. 2.Hypertension. 3.Atrial fibrillation in sinus rhythm on sotalol. 4.History of coronary artery disease, status post CABG and recent stent of the OM graft in 04/2018. 5.His other problems include dyslipidemia. My impression is that he his QT is not prolonged although the Betapace certainly could have contribut ed to this either with an arrhythmia or bradycardia. I do not think we are dealing with orthostatic hypotension. If anything, his blood pressure was slightly elevated. I am comfortable with Mr. Suha quinonez going home on a lower dose of sotalol, will go to 80 b.i.d. for now. I am going to have him come to the office and get an echocardiogram, which he has not had for 3 years. I will have him get an ou tpatient event monitor and if we see anything unusual or if he has any recurrence, we will send him f or an EP study. RUPALI/SUMAN Voice ID: [id number] Report ID: [id number]
== END 2018-06-30 11:47 | disposition home or self-care (01) ==
LOC: ER 18:56 → ERHOLD 23:02 → 2ND 23:37
PROVIDERS: ADMIT Internal Medicine; ATTEND Internal Medicine
DX: R55 Syncope and collapse (principal); I25.10 Atherosclerotic heart disease of native coronary artery without angina pectoris; I48.0 Paroxysmal atrial fibrillation; E78.5 Hyperlipidemia, unspecified; S22.42XA Multiple fractures of ribs, left side, initial encounter for closed fracture; W18.39XA Other fall on same level, initial encounter; Y93.9 Activity, unspecified; Y92.007 Garden or yard of unspecified non-institutional (private) residence as the place of occurrence of the external cause; Z95.1 Presence of aortocoronary bypass graft; Z91.018 Allergy to other foods; Z88.6 Allergy status to analgesic agent; Z88.8 Allergy status to other drugs, medicaments and biological substances; Z98.61 Coronary angioplasty status
CPT/HCPCS: 93005 ×2; 85025 ×2; 80048 ×2; 36415; 83735; 85610; 80076; 84484 ×3; 83880; 70450; 71250; 71045; 70553; 70544; 70549; 96374; 99285; A9577; J3010 ×7; G0378 ×2; 81003; 81015

== ENCOUNTER 2018-09-03 07:05 | Day surgery (SDC) | payer OTHER ==
[2018-08-31 10:45] LABS: Basophils % 0.5 % (0-1.3); Eosinophils % 8.2 % (0-4.4); MPV 8.9 fL (7.6-11.3); Monocytes % 13.7 % (3.3-12.3); RBC Red Blood Cell Count 4.21 M/uL (4.33-5.43)
[2018-08-31 10:49] LABS: Protime INR 1.02
[2018-08-31 11:16] LABS: Potassium 4.3 mmol/L (3.5-5.1)
[2018-09-03] MEDS ORDERED: NA CHLORIDE 0.9% 500 ML ONE (07:36)
[2018-09-03] MEDS ORDERED: HEPA 1000U/500MLS 2,000 UNIT/1,000 ML BAG IV ONE (07:57)
[2018-09-03] MEDS ORDERED: LIDOCAINE 1% MPF 30 ML VIAL ONE (07:57)
[2018-09-03] MEDS ORDERED: ATROPINE SULF 1 MG/10 ML SYR IV ONE (08:06)
[2018-09-03] MEDS ORDERED: MIDAZOLAM HCL 2 MG/2 ML INJ ONE ×2 (08:06→08:11)
[2018-09-03] MEDS ORDERED: NA CHLORIDE 0.9% 0 ML ONE (08:06)
[2018-09-03] MEDS ORDERED: FENTANYL CITR 100 MCG/2 ML ONE (08:06)
[2018-09-03] MEDS ORDERED: NITROGLYCERIN 100 MCG/ML SYR (for cath lab use only) IV ONE (08:07)
[2018-09-03] MEDS ORDERED: NITROGLYCERIN/D5W 0 MG/0 ML BTL IV ONE (08:07)
[2018-09-03] MEDS ORDERED: METHYLPREDNISOLONE 125 MG INJ ONE (08:12)
[2018-09-03 11:17] VITALS: TEMP 97.9
[2018-09-03 11:20] VITALS: BP 132/57; O2SAT 100
--- NOTE | 2018-09-03 12:23 | OP ---
Surgeon: Jonathan Nash MD Procedures: Left heart catheterization with left ventricular coronary angiography, saphenous vein gr aft angiography of RCA and obtuse marginal grafts, internal mammary graft of left internal mammary to the LAD, left ventriculogram, and bilateral carotid angiograms using digital subtraction angiography . Conscious Sedation: 30 minutes. Procedure Findings: The patient has bilateral carotid stenosis on the right. There is a fairly smoo th 70% stenosis on the left. 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 His left anterior descending, circumflex artery and right coronary arteries are all totally occluded. Saphenous vein graft to the right coronary artery is patent, normal flow. Saphenous vein graft to the obtuse margin al is patent with normal flow. A proximal portion was stented about 4 months ago. It is widely rivas nt. No stenosis within the stent. The left internal mammary goes to the LAD, it gives good blood fl ow. There is diffuse disease distally in all of the coronary blood vessels. Left ventricular ejecti on fraction was 60%. No segmental wall motion abnormality. Left ventricular end-diastolic pressure elevated at 23 and the recommendation is for him to undergo bilateral carotid endarterectomy at the [facility]. Procedure In Detail: The patient had evidence of a Hollenhorst plaque. Doppler ultrasound, MRA adolph cated. There was no significant stenosis on the left. On the right, there appeared to be a 70% sten osis, so we wanted to angiogram the carotids. He was prepared and draped in usual sterile fashion. Gave informed consent. Sedated with Versed and fentanyl. Right femoral artery was entered using an 18-gauge needle, cannulated with a short J-wire. This was after giving 1% lidocaine for local anesth esia. We were able to place a 4-Lithuanian sheath into the artery. We used a JR4 coronary catheter to a ngiogram both carotids. The left internal mammary, both saphenous vein grafts and the right coronary . We used the left JL4 catheter to angiogram the left coronary, which of course gave very little mallory w to the heart muscle. We used a pigtail to angiogram the left ventricle. Carotid angiograms were d one through digital subtraction angiography. At the end of that procedure, a sheath shot was done. Adequate anatomy was seen and we placed an Angio-Seal device to close the arteriotomy. Estimated Blood Loss: 20 cc. Newspaper Editor: Amparo Mota. Complications: None. MARI/SUMAN Voice ID: [id number] Report ID: [id number]
== END 2018-09-03 11:10 | disposition home or self-care (01) ==
LOC: CCL 07:05
PROVIDERS: ATTEND Internal Medicine
DX: I25.810 Atherosclerosis of coronary artery bypass graft(s) without angina pectoris (principal); I65.23 Occlusion and stenosis of bilateral carotid arteries; I10 Essential (primary) hypertension; E78.2 Mixed hyperlipidemia; I48.91 Unspecified atrial fibrillation; I08.3 Combined rheumatic disorders of mitral, aortic and tricuspid valves; Z79.82 Long term (current) use of aspirin; Z79.02 Long term (current) use of antithrombotics/antiplatelets; Z79.899 Other long term (current) drug therapy; Z87.891 Personal history of nicotine dependence
CPT/HCPCS: 85025; 80048; 36415; 85610; 85730; 93459; C1893; C1760; J2250; J3010; J2930; J0583

== ENCOUNTER 2018-11-21 17:37 | Inpatient (IN) | payer OTHER ==
--- OUTSIDE RECORDS SUMMARY | 2018-11-21 17:39 | XMS REPORT | Clinical Summary ---
:1940 Author Organization [facility] Address [address] [place] [address] Care Team Providers Name Role Phone Jeancarlos Smiht Primary Care Provider Derik Beltre Unavailable Allergies Active Allergy Reactions Severity Noted Date Comments Codeine 08/31/2018 Other reaction(s): Hives/Rash Iodinated Contrast Media 08/31/2018 Other reaction(s): Anaphylaxis Kiwi (Actinidia Chinensis) 08/31/2018 Other reaction(s): Unknown Morphine 08/31/2018 Other reaction(s): Anaphylaxis Quetiapine Fumarate 08/31/2018 Other reaction(s): Unknown [place] Hives 08/31/2018 Ziprasidone Mesylate 08/31/2018 Other reaction(s): altered mental status, agitation Medications Medication Sig Dispensed Refills Start Date End Date Status sotalol AF Take 60 mg by 0 06/30/2018 Active (BETAPACE) 120 MG mouth 2 (two) tablet times daily. omeprazole Take 20 mg by 0 07/18/2014 Active (PRILOSEC) 20 MG mouth daily. capsule MAGNESIUM OXIDE Take 420 mg by 0 04/27/2018 Active ORAL mouth daily . clopidogrel Take 75 mg by 0 05/01/2018 Active (PLAVIX) 75 mg mouth daily. tablet atorvastatin Take 80 mg by 0 05/01/2018 Active (LIPITOR) 80 MG mouth daily. tablet losartan (COZAAR) Take 50 mg by 0 Active 50 MG tablet mouth daily. glipiZIDE Take 0.5 30 tablet 0 09/15/2018 09/15/2019 Active (GLUCOTROL) 5 MG tablets (2.5 tablet mg total) by mouth every morning before breakfast. aspirin 81 MG EC Take 81 mg by 0 06/17/2016 09/14/2018 Discontinued tablet mouth daily. amLODIPine Take 5 mg by 0 09/14/2018 Discontinued (NORVASC) 5 MG mouth daily. tablet glipiZIDE Take 0.5 30 tablet 0 09/15/2018 09/14/2018 Discontinued (GLUCOTROL) 5 MG tablets (2.5 tablet mg total) by mouth every morning before breakfast. amLODIPine Take 1 tablet 30 tablet 0 09/15/2018 09/14/2018 Discontinued (NORVASC) 10 MG (10 mg total) tablet by mouth daily for 30 days. apixaban (ELIQUIS) Take 1 tablet 60 tablet 0 09/14/2018 09/14/2018 Discontinued 5 mg Tab tablet (5 mg total) by mouth 2 (two) times daily for 30 days. amLODIPine Take 1 tablet 30 tablet 0 09/15/2018 10/15/2018 (NORVASC) 10 MG (10 mg total) tablet by mouth daily for 30 days. apixaban (ELIQUIS) Take 1 tablet 60 tablet 0 09/14/2018 10/14/2018 5 mg Tab tablet (5 mg total) by mouth 2 (two) times daily for 30 days. amoxicillin-clavula Take 1 tablet 0 09/18/2018 10/03/2018 Discontinued trudy (AUGMENTIN) by mouth every 875-125 mg per 12 (twelve) tablet hours WITH FOOD. traMADol (ULTRAM) Take 1 tablet 30 tablet 0 10/03/2018 10/03/2018 Discontinued 50 mg tablet (50 mg total) by mouth every 6 (six) hours as needed for Pain for up to 10 days. Max Daily Amount: 200 mg traMADol (ULTRAM) Take 1 tablet 30 tablet 0 10/03/2018 10/13/2018 50 mg tablet (50 mg total) by mouth every 6 (six) hours as needed for Pain for up to 10 days. Max Daily Amount: 200 mg Active Problems Problem Noted Date Carotid artery stenosis 09/12/2018 Carotid stenosis 09/12/2018 Carotid artery occlusion Hyperlipidemia Coronary artery disease Hollenhorst plaque, left eye Hypertension Encounters Date Type Specialty Care Team Description 10/02/2018 Travel 10/01/2018 Surgery Danial Smith ENDARTERECTOMY,MD Lacey Mckeon 10/01/2018 Anesthesia Event Rah Russo 10/01/2018 - Hospital Encounter Cardiology Danial Smith Bilateral carotid 10/03/2018 MD Mirella artery occlusion 09/27/2018 Hospital Encounter Danial Smith MD 09/27/2018 Office Visit Cardiology Danial Smith Postoperative state Mirella MD (Primary Dx) 09/12/2018 Surgery LuisDanial cox ENDARTERECTOMY,MD Lacey Mckeon 09/12/2018 Anesthesia Event Harry Pyle MD 09/12/2018 - Hospital Encounter Cardiology LuisDanial Bilateral carotid 09/14/2018 MD Mirella artery occlusion 09/04/2018 Hospital Encounter Radiology Danial Smith MD 09/04/2018 Hospital Encounter Danial Smith MD 09/04/2018 Office Visit Cardiology LuisDanial cox Bilateral carotid artery occlusion; MD Mirella Hyperlipidemia, unspecified hyperlipidemia type; Coronary artery disease involving mechoopda coronary artery of mechoopda heart without angina pectoris; Hollenhorst plaque, left eye; Essential hypertension 09/04/2018 Orders Only General Internal Medicine after 11/20/2017 Family History Medical History Relation Name Comments Heart disease Brother Heart disease Father Relation Name Status Comments Brother Father (Age 76) heart attack Mother Social History Tobacco Use Types Packs/Day Years Used Date Former Smoker 1 3 Quit: 1966 Smokeless Tobacco: Never Used Tobacco Cessation: Counseling Given: No Alcohol Use Drinks/Week oz/Week Comments No Alcohol Habits Answer Date Recorded How often do you have a drink containing alcohol? Never 09/04/2018 How many drinks containing alcohol do you have on a typical Not asked day when you are drinking? How often do you have six or more drinks on one occasion? Not asked Sex Assigned at Date Recorded Not on file Job Start Date Occupation Industry Not on file Not on file Not on file Travel History Travel Start Travel End No recent travel history available. Last Filed Vital Signs Vital Sign Reading Time Taken Blood Pressure 138/65 10/03/2018 7:28 AM CDT Pulse 67 10/03/2018 7:28 AM CDT Temperature 37.1 C (98.8 F) 10/03/2018 7:28 AM CDT Respiratory Rate 20 10/03/2018 7:28 AM CDT Oxygen Saturation 98% 10/03/2018 7:28 AM CDT Inhaled Oxygen Concentration - - Weight 78.3 kg (172 lb 9.6 oz) 10/03/2018 4:28 AM CDT Height 175.3 cm (5' 9") 10/01/2018 5:38 AM CDT Body Mass Index 25.49 10/03/2018 4:28 AM CDT Plan of Treatment Not on file Implants Implanted Type Area [employer] Sprayer Device Shelf Model / Identifier Expiration Serial / Lot Date Grmarla Hemshld Dbl Ameya 0.3x3.0in [id number] - [id number] IMPLANTS Left: Neck GETINGE 09/16/2022 [id number] / Implanted: Qty: 1 on 09/12/2018 by Danial Smith MD IND:MAQUET: CV [id number] / [id number] Grft Hemshld Dbl Ameya 0.3x3.0in [id number] - [id number] IMPLANTS Right: GETINGE 02/16/2023 [id number] / Implanted: Qty: 1 on 10/01/2018 by Danial Smith MD Arterial IND :MAQUET:CV [id number] / [id number] Procedures Procedure Name Priority Date/Time Associated Comments Diagnosis RHYTHM STRIP - SCAN 10/04/2018 12:12 PM CDT ECG 12-LEAD STAT 10/01/2018 11:58 Results for this AM CDT procedure are in the results section. HGB/HCT (H&H) - STAT 10/01/2018 11:49 Results for this STAT LAB AM CDT procedure are in the results section. GLUCOSE-STAT LAB STAT 10/01/2018 11:49 Results for this AM CDT procedure are in the results section. POTASSIUM-STAT LAB STAT 10/01/2018 11:49 Results for this AM CDT procedure are in the results section. TISSUE EXAM AP Routine 10/01/2018 9:04 Results for this AM CDT procedure are in the results section. ENDARTERECTOMY,GARZA 10/01/2018 8:00 Carotid stenosis, TID AM CDT right Special Needs (ICU BED NEEDED) PT/APTT Routine 10/01/2018 6:03 AM CDT PLATELET AGGREGATION: Routine 10/01/2018 6:03 AM CDT Results for this FUNCTION SCREEN procedure are in the results section. POCT-GLUCOSE METER Routine 10/01/2018 5:46 AM CDT CBC W/PLT COUNT & AUTO Routine 09/27/2018 11:43 AM CDT Results for this DIFFERENTIAL procedure are in the results section. BASIC METABOLIC PANEL (7) Routine 09/27/2018 11:43 AM CDT CBC W/PLT COUNT & AUTO Routine 09/27/2018 11:43 AM CDT Results for this DIFFERENTIAL procedure are in the results section. PROTHROMBIN TIME/INR Routine 09/27/2018 11:43 AM CDT APTT Routine 09/27/2018 11:43 AM CDT RHYTHM STRIP - SCAN 09/17/2018 3:42 PM CDT RHYTHM STRIP - SCAN 09/17/2018 12:40 PM CDT TSH/FREE T4 IF INDICATED Routine 09/14/2018 3:42 AM CDT MAGNESIUM Routine 09/14/2018 3:42 AM CDT PT/APTT Routine 09/14/2018 3:42 AM CDT BASIC METABOLIC PANEL (7) Routine 09/14/2018 3:42 AM CDT CBC (HEMOGRAM ONLY) Routine 09/14/2018 3:42 AM CDT TROPONIN I STAT 09/14/2018 3:[address] BRAIN WITHOUT IV STAT 09/13/2018 6:25 PM CDT Results for this CONTRAST procedure are in the results section. TRANSFUSION SERVICE REPORT 09/13/2018 5:50 PM CDT - SCAN TROPONIN I CASPER 09/13/2018 3:29 PM CDT TROPONIN I Routine 09/13/2018 9:16 AM CDT ECG 12-LEAD Routine 09/13/2018 9:01 AM CDT Procedure Note - Interface, External Ris In - 09/13/2018 9:21 AM CDT Ventricular Rate 60 BPM Atrial Rate 60 BPM P-R Interval 186 ms QRS Duration 100 ms Q-T Interval 420 ms QTC Calculation(Bazett) 420 ms P Denhoff 21 degrees R Denhoff -6 degrees T Denhoff 14 degrees Normal sinus rhythm Nonspecific T wave abnormality Abnormal ECG When compared with ECG of 13-SEP-2018 05:22, No significant change was found ECG 12-LEAD Routine 09/13/2018 9:01 AM Results for this CDT procedure are in the results section. ECG 12-LEAD Routine 09/13/2018 5:22 AM Results for this CDT procedure are in the results section. TROPONIN I Add-On 09/13/2018 5:07 AM Results for this CDT procedure are in the results section. MAGNESIUM Routine 09/13/2018 5:07 AM Results for this CDT procedure are in the results section. PT/APTT Routine 09/13/2018 5:07 AM Results for this CDT procedure are in the results section. BASIC METABOLIC PANEL Routine 09/13/2018 5:07 AM Results for this (7) CDT procedure are in the results section. CBC (HEMOGRAM ONLY) Routine 09/13/2018 5:07 AM Results for this CDT procedure are in the results section. CBC W/PLT COUNT & STAT 09/12/2018 10:05 AM Results for this AUTO DIFFERENTIAL CDT procedure are in the results section. PROTHROMBIN TIME/INR STAT 09/12/2018 10:05 AM Results for this CDT procedure are in the results section. BASIC METABOLIC PANEL STAT 09/12/2018 10:05 AM Results for this (7) CDT procedure are in the results section. CBC W/PLT COUNT & STAT 09/12/2018 10:05 AM Results for this AUTO DIFFERENTIAL CDT procedure are in the results section. BLOOD GAS, ARTERIAL STAT 09/12/2018 10:04 AM Results for this CDT procedure are in the results section. TISSUE EXAM AP Routine 09/12/2018 9:10 AM Results for this CDT procedure are in the results section. HGB/HCT (H&H) - STAT STAT 09/12/2018 8:44 AM Results for this LAB CDT procedure are in the results section. GLUCOSE-STAT LAB STAT 09/12/2018 8:44 AM Results for this CDT procedure are in the results section. POTASSIUM-STAT LAB STAT 09/12/2018 8:44 AM Results for this CDT procedure are in the results section. SODIUM NA-STAT LAB STAT 09/12/2018 8:44 AM Results for this CDT procedure are in the results section. BLOOD GAS, ARTERIAL STAT 09/12/2018 8:44 AM Results for this CDT procedure are in the results section. CALCIUM, IONIZED STAT 09/12/2018 8:44 AM Results for this CDT procedure are in the results section. RRL CRITICAL LABS STAT 09/12/2018 8:44 AM Results for this (ABG,NA,K,H&H,GLUCOSE CDT procedure are in ) the results section. ENDARTERECTOMY,CAROTI 09/12/2018 7:30 AM Left carotid D CDT stenosis Case Notes 2 HRS PER MOHINDER Special Needs (ICU BED NEEDED)( DECLARED THIS CASE URGENT) ABORH, MANUAL STAT 09/12/2018 6:22 AM CDT PROTHROMBIN TIME/INR Routine 09/12/2018 6:22 AM CDT PT/APTT Routine 09/12/2018 6:22 AM CDT BASIC METABOLIC PANEL (7) Routine 09/12/2018 6:22 AM CDT PLATELET AGGREGATION: Routine 09/12/2018 6:22 AM CDT Results for this FUNCTION SCREEN procedure are in the results section. POCT-GLUCOSE METER Routine 09/12/2018 5:40 AM CDT TRANSFUSION SERVICE REPORT 09/05/2018 6:02 PM CDT - SCAN XR CHEST 2 VIEWS Routine 09/04/2018 1:25 PM CDT CBC W/PLT COUNT & AUTO Routine 09/04/2018 12:47 PM CDT Results for this DIFFERENTIAL procedure are in the results section. TYPE AND SCREEN, AUTOMATED Routine 09/04/2018 12:47 PM CDT CBC W/PLT COUNT & AUTO Routine 09/04/2018 12:47 PM CDT Results for this DIFFERENTIAL procedure are in the results section. ECG 12-LEAD Routine 09/04/2018 12:18 PM CDT Procedure Note - Interface, External Ris In - 09/04/2018 2:19 PM CDT Ventricular Rate 59 BPM Atrial Rate 59 BPM P-R Interval 184 ms QRS Duration 104 ms Q-T Interval 450 ms QTC Calculation(Bazett) 445 ms P Denhoff 31 degrees R Denhoff 48 degrees T Denhoff 81 degrees Sinus bradycardia RSR' or QR pattern in V1 suggests right ventricular conduction delay Nonspecific T wave abnormality Abnormal ECG No previous ECGs available ECG 12-LEAD Routine 09/04/2018 12:18 PM CDT after 11/20/2017 Results RHYTHM STRIP - SCAN (10/04/2018 12:12 PM CDT)Only the most recent of3 resultswithin the time period is included. Narrative Performed At ECG 12 lead (10/01/2018 11:58 AM CDT)Only the most recent of4 resultswithin the time period is included. Specimen Narrative Performed At Ventricular Rate 45 BPM GE MUSE Atrial Rate 45 BPM P-R Interval 196 ms QRS Duration 102 ms Q-T Interval 488 ms QTC Calculation(Bazett) 422 ms P Denhoff 22 degrees R Denhoff -7 degrees T Denhoff 90 degrees Marked sinus bradycardia Incomplete right bundle branch block T wave inversion anterolateral leads consider postischemic changes Abnormal ECG 13 SEP 2018 T waves are now negative lateral leads Confirmed by MD ENCINAS YOCHAI ([id number]) on 10/01/2018 2:18:33 PM Procedure Note Interface, External Ris In - 10/01/2018 2:18 PM CDT Ventricular Rate 45 BPM Atrial Rate 45 BPM P-R Interval 196 ms QRS Duration 102 ms Q-T Interval 488 ms QTC Calculation(Bazett) 422 ms P Denhoff 22 degrees R Denhoff -7 degrees T Denhoff 90 degrees Marked sinus bradycardia Incomplete right bundle branch block T wave inversion anterolateral leads consider postischemic changes Abnormal ECG 13 SEP 2018 T waves are now negative lateral leads Confirmed by MD ENCINAS YOCHAI ([id number]) on 10/01/2018 2:18:33 PM Performing Organization Address City/[facility] Phone Number [facility] Potassium-Stat Lab (10/01/2018 11:49 AM CDT)Only the most recent of2 resultswithin the time period is included. Potassium 4.0 3.6 - 5.5 meq/L [facility] Specimen Blood, Arterial Performing Organization Address City/[facility]/Zipcode Phone Number [address] [address] CENTER Glucose-Stat Lab (10/01/2018 11:49 AM CDT)Only the most recent of2 resultswithin the time period is included. Glucose 139 (H) 70 - 110 mg/dL [facility] Specimen Blood, Arterial Performing Organization Address City/State/Zipcode Phone Number [facility] [address] [place] [address] [place] HGB/HCT (H&H)-Stat Lab (10/01/2018 11:49 AM CDT)Only the most recent of2 resultswithin the time period is included. Hemoglobin 10.5 (L) 13.0 - 16.8 g/dL [facility] Hematocrit 31.0 (L) 40.0 - 50.0 % [facility] Specimen Blood, Arterial Performing Organization Address City/[facility] Phone Number [address] [address] [place] Tissue Exam (10/01/2018 9:04 AM CDT)Only the most recent of2 resultswithin the time period is included. Case Report Surgical Pathology Report Case: [id number] [facility] Authorizing Provider:Danial Smith, Collected: 10/01/2018 0904 [facility] Ordering Location: [facility] Received: 10/01/2018 1008 [employer] Pathologist: Zeferino Warner MD Specimen:Plaque, RIGHT CAROTID PLAQUE/ ENDARTERECTOMY DIAGNOSIS ARTERY, RIGHT CAROTID, ENDARTERECTOMY: [facility] CALCIFIC ATHEROSCLEROTIC PLAQUE [facility] Signing Pathologist Direct Phone Line: [phone] CPT Code(s) 62585; [address]109 [facility] SPECIMEN SOURCE A. Right carotid [facility] plaque/endarterectomy [facility] GROSS DESCRIPTION The specimen is received in [facility] formalin and consists of a [facility] portion of cylindrical calcified tissue measuring 4.5 x 0.9 x 0.9 cm. [facility] Representative sections are in one cassette for decalcification. CB/pl MICROSCOPIC DESCRIPTION Performed [facility] Specimen Tissue Performing Organization Address [facility] Phone Number [address] [address] [place] Platelet Aggregation: Function Screen (10/01/2018 6:03 AM CDT)Only the most recent of2 resultswithin the time period is included. Weak ADP 56 (L) 60 - 91 % [facility] Plt. Function Screen 50-59% indicates mild [facility] Interpretation platelet dysfunction [facility] Pathologist: Genevieve Lin MD [facility] (electronic signature) [facility] Platelets 159 150 - 450 K/CU [facility] Specimen Blood Narrative Performed At Platelet Function Screen results may be [facility] falsely low with platelet counts <100,000/cu mm. for patients on clopidogrel in past two weeks Performing Organization Address [facility] Phone Number [address] [address] CENTER PT/aPTT (10/01/2018 6:03 AM CDT)Only the most recent of4 resultswithin the time period is included. Protime 14.5 (H) 11.9 - 14.2 seconds [facility] INR 1.2 <=5.9 [facility] PTT 48.4 (H) 22.5 - 36.0 seconds [facility] Specimen Blood Narrative Performed At Effective 08/15/2018: PT Reference Range [facility] Change New: 11.9-14.2Previous: 11.7-14.7 RECOMMENDED COUMADIN/WARFARIN INR THERAPY RANGES STANDARD DOSE: 2.0-3.0Includes: PROPHYLAXIS for venous thrombosis, systemic embolization; TREATMENT for venous thrombosis and/or pulmonary embolus. HIGH RISK: Target INR is 2.5-3.5 for patients wiht mechanical heart valves. Performing Organization Address [facility] Phone Number [facility] [address] [place] [address] CENTER POC-Glucose meter (10/01/2018 5:46 AM CDT)Only the most recent of2 resultswithin the time period is included. POC-Glucose Meter 111 (H)Comment: TESTED AT 70 - 110 mg/dL [facility] [address] [place] [id number] Specimen Blood Performing Organization Address City/State/Zipcode Phone Number [facility] [address] [place], [place] [phone] [place] CBC with platelet count + automated diff (09/27/2018 11:43 AM CDT)Only the most recent of3 resultswithin the time period is included. WBC 4.7 3.5 - 10.5 K/L [facility] RBC 3.82 (L) 4.63 - 6.08 M/L [facility] Hemoglobin 11.3 (L) 13.7 - 17.5 GM/DL [facility] Hematocrit 35.8 (L) 40.1 - 51.0 % [facility] MCV 93.7 (H) 79.0 - 92.2 fL [facility] MCH 29.6 25.7 - 32.2 pg [facility] MCHC 31.6 (L) 32.3 - 36.5 GM/DL [facility] RDW 14.3 11.6 - 14.4 % [facility] Platelets 164 150 - 450 K/CU MM [facility] MPV 9.8 9.4 - 12.4 fL [facility] nRBC 0 0 - 0 /100 WBC [facility] % Neutros 60 % [facility] % Lymphs 22 % [facility] % Monos 10 % [facility] % Eos 8 % [facility] % Baso 0 % [facility] # Neutros 2.81 1.78 - 5.38 K/L [facility] # Lymphs 1.03 (L) 1.32 - 3.57 K/L [facility] # Monos 0.45 0.30 - 0.82 K/L [facility] # Eos 0.36 0.04 - 0.54 K/L [facility] # Baso 0.02 0.01 - 0.08 K/L [facility] Immature Granulocytes-Relative 0 0 - 1 % [facility] Specimen Blood Performing Organization Address City/[facility]/Zipcode Phone Number [address] [address] [phone] CENTER aPTT (09/27/2018 11:43 AM CDT) PTT 67.7 (H) 22.5 - 36.0 seconds [facility] Specimen Blood Performing Organization Address City/State/Zipcode Phone Number [address] [address] [phone] CENTER Prothrombin time/INR (09/27/2018 11:43 AM CDT)Only the most recent of3 resultswithin the time period is included. Protime 15.3 (H) 11.9 - 14.2 seconds [facility] INR 1.3 <=5.9 [facility] Specimen Blood Narrative Performed At Effective 08/15/2018: PT Reference Range [facility] Change New: 11.9-14.2Previous: 11.7-14.7 RECOMMENDED COUMADIN/WARFARIN INR THERAPY RANGES STANDARD DOSE: 2.0-3.0Includes: PROPHYLAXIS for venous thrombosis, systemic embolization; TREATMENT for venous thrombosis and/or pulmonary embolus. HIGH RISK: Target INR is 2.5-3.5 for patients wiht mechanical heart valves. Performing Organization Address [facility]/Zipcode Phone Number [address] [address] CENTER Basic Metabolic Panel (09/27/2018 11:43 AM CDT)Only the most recent of5 resultswithin the time period is included. Sodium 138 136 - 145 meq/L [facility] Potassium 4.5 3.5 - 5.1 meq/L [facility] Chloride 106 98 - 107 meq/L [facility] CO2 25 22 - 29 meq/L [facility] BUN 21 7 - 21 mg/dL [facility] Creatinine 0.87 0.57 - 1.25 mg/dL [facility] Glucose 95 70 - 105 mg/dL [facility] Calcium 9.4 8.4 - 10.2 mg/dL [facility] EGFR 85Comment: ESTIMATED GFR IS mL/min/1.73 sq m [facility] NOT ACCURATE CREATININE [facility] CENTER CLEARANCE IN PREDICTING GLOMERULAR FILTRATION RATE. ESTIMATED GFR IS NOT APPLICABLE FOR DIALYSIS PATIENTS. Specimen Blood Performing Organization Address [facility] Phone Number [address] [address] [place] TSH/Free T4 If Indicated (09/14/2018 3:42 AM CDT) TSH 0.76 0.35 - 4.94 uIU/mL [facility] Specimen Blood Performing Organization Address City/[facility]/Zipcode Phone Number [address] [address] [phone] CENTER Troponin I (09/14/2018 3:42 AM CDT)Only the most recent of4 resultswithin the time period is included. Troponin I <0.01 0.00 - 0.03 ng/mL [facility] Specimen Blood Narrative Performed At Troponin I (TnI) levels must be interpreted [facility] in the context of the presenting symptoms and the clinical findings. Elevated TnI levels indicate myocardial damage, but are not specific for ischemic heart disease. Elevated TnI levels are seen in patients with other cardiac conditions (including myocarditis and congestive heart failure), and slight TnI elevations occur in patients with other conditions, including sepsis, renal failure, acidosis, acute neurological disease, and persistent tachyarrhythmia. Performing Organization Address City/[facility] Phone Number [address] [address] [phone] CENTER CBC (Hemogram only) (09/14/2018 3:42 AM CDT)Only the most recent of2 resultswithin the time period is included. WBC 6.1 3.5 - 10.5 K/L [facility] RBC 3.74 (L) 4.63 - 6.08 M/L [facility] Hemoglobin 11.1 (L) 13.7 - 17.5 GM/DL [facility] Hematocrit 34.3 (L) 40.1 - 51.0 % [facility] MCV 91.7 79.0 - 92.2 fL [facility] MCH 29.7 25.7 - 32.2 pg [facility] MCHC 32.4 32.3 - 36.5 GM/DL [facility] RDW 14.4 11.6 - 14.4 % [facility] Platelets 115 (L) 150 - 450 K/CU MM [facility] MPV 11.1 9.4 - 12.4 fL [facility] nRBC 0 0 - 0 /100 WBC [facility] Specimen Blood Performing Organization Address City/[facility]/Zipcode Phone Number [facility] [address] [place] [phone] C[place] Magnesium (09/14/2018 3:42 AM CDT)Only the most recent of2 resultswithin the time period is included. Magnesium 2.0 1.6 - 2.6 mg/dL [facility] Specimen Blood Performing Organization Address City/State/Zipcode Phone Number [facility] [address] [place] [address] [place] CT brain without IV contrast (09/13/2018 6:25 PM CDT) Specimen Narrative Performed At FINAL REPORT RIS CT, BRAIN, WITHOUT CONTRAST CLINICAL INDICATION:r/o stroke COMPARISON: None TECHNIQUE:Noncontrast axial CT imaging of the brain and skull. DOSE REDUCTION: Dose modulation, iterative reconstruction, and/or weight-based adjustment of the mA/kV was utilized to reduce the radiation dose to as low as reasonably achievable. FINDINGS: No intracranial hemorrhage, midline shift or mass effect. Midline structures are normally developed. Mild chronic microvascular ischemic changes of the periventricular and subcortical white matter are present. Partially empty sella, which may represent a normal anatomic variant in this age group. No hydrocephalus. Orbits are within normal limits. Atherosclerotic calcification of the intracranial internal carotid and vertebral arteries. Opacification of the right maxillary sinus with consequent depression of the right orbital floor and increased right intraorbital volume. IMPRESSION: No large territorial infarct identified No intracranial hemorrhage Slightly increased intraorbital volume on the right due to an opacified and atelectatic right maxillary sinus, compatible with silent sinus syndrome. If there is persistent clinical concern for intracranial pathology, MR examination is recommended for further characterization. Signed: Vin Doe MD Report Verified Date/Time:09/13/2018 18:45:50 Reading Location: [address] Neuro Reading Room Procedure Note Interface, External Ris In - 09/13/2018 6:47 PM CDT FINAL REPORT CT, BRAIN, WITHOUT CONTRAST CLINICAL INDICATION: r/o stroke COMPARISON: None TECHNIQUE: Noncontrast axial CT imaging of the brain and skull. DOSE REDUCTION: Dose modulation, iterative reconstruction, and/or weight-based adjustment of the mA/kV was utilized to reduce the radiation dose to as low as reasonably achievable. FINDINGS: No intracranial hemorrhage, midline shift or mass effect. Midline structures are normally developed. Mild chronic microvascular ischemic changes of the periventricular and subcortical white matter are present. Partially empty sella, which may represent a normal anatomic variant in this age group. No hydrocephalus. Orbits are within normal limits. Atherosclerotic calcification of the intracranial internal carotid and vertebral arteries. Opacification of the right maxillary sinus with consequent depression of the right orbital floor and increased right intraorbital volume. IMPRESSION: No large territorial infarct identified No intracranial hemorrhage Slightly increased intraorbital volume on the right due to an opacified and atelectatic right maxillary sinus, compatible with silent sinus syndrome. If there is persistent clinical concern for intracranial pathology, MR examination is recommended for further characterization. Signed: Vin Doe MD Report Verified Date/Time: 09/13/2018 18:45:50 Reading Location: [facility] C0[facility] Neuro Reading Room Performing Organization Address City/State/Zipcode Phone Number [employer] TRANSFUSION SERVICE REPORT - SCAN (09/13/2018 5:50 PM CDT)Only the most recent of2 resultswithin the time period is included. Narrative Performed At Blood gas, arterial (09/12/2018 10:04 AM CDT)Only the most recent of2 resultswithin the time period is included. pH, Arterial 7.36 7.35 - 7.45 [facility] pCO2, Arterial 43 35 - 45 mmHg [facility] pO2, Arterial 76 (L) 80 - 90 mmHg [facility] O2 Sat, Arterial 94.7 (L) 96.0 - 97.0 % [facility] HCO3, Arterial 24 21 - 29 mmol/L [facility] Base Excess, Arterial -1.9 -2.0 - 3.0 mmol/L [facility] Patient Temperature 37.0 C [facility] FIO2 21.0 % [facility] Specimen Blood, Arterial Narrative Performed At Only if arterial line in place and/or patient [facility] on ventilator Performing Organization Address [facility] Phone Number [address] [address] [place] Sodium Na-Stat Lab (09/12/2018 8:44 AM CDT) Sodium 141 135 - 148 meq/L [facility] Specimen Blood, Arterial Performing Organization Address [facility] Phone Number [address] [address] [place] Calcium, Ionized (09/12/2018 8:44 AM CDT) Calcium, Ion 1.11 (L) 1.12 - 1.27 mmol/L [facility] pH, Blood 7.40 [facility] Specimen Blood Performing Organization Address [facility] [place] Phone Number [address] [address] [facility] [place], manual (09/12/2018 6:22 AM CDT) ABO Grouping A [facility] Rh Factor POS [facility] Specimen Blood Performing Organization Address [facility] [place] Phone Number [address] [address] XR chest 2 views (09/04/2018 1:25 PM CDT) Specimen Narrative Performed At FINAL REPORT GE RIS PA and Lateral views of the chest dated 09/04/2018 Clinical information: preop Comment:Heart is in upper limits of normal in size. There is prior sternotomy. Pulmonary vasculature is unremarkable. Interstitial pulmonary disease is seen on the left suggestive of vascular congestion, pneumonitis, or chronic changes. There is volume loss on the left with shifting heart and mediastinum ipsilaterally. The right lungs clear. IMPRESSION: Nonspecific interstitial pulmonary disease on the left favor chronic changes. Signed: Derik Odom MD Report Verified Date/Time:09/04/2018 13:32:54 Reading Location: [facility] [id number] Consult Reading Room Procedure Note Interface, External Ris In - 09/04/2018 1:35 PM CDT FINAL REPORT PA and Lateral views of the chest dated 09/04/2018 Clinical information: preop Comment: Heart is in upper limits of normal in size. There is prior sternotomy. Pulmonary vasculature is unremarkable. Interstitial pulmonary disease is seen on the left suggestive of vascular congestion, pneumonitis, or chronic changes. There is volume loss on the left with shifting heart and mediastinum ipsilaterally. The right lungs clear. IMPRESSION: Nonspecific interstitial pulmonary disease on the left favor chronic changes. Signed: Derik Odom MD Report Verified Date/Time: 09/04/2018 13:32:54 Reading Location: [facility] B1 [id number] Consult Reading Room Performing Organization Address City/[facility] Phone Number GE RIS Type and screen, automated (09/04/2018 12:47 PM CDT) ABO/RH AUTOMATED (BEAKER) A POSITIVE [facility] Ab Scrn NEGATIVE [facility] Specimen Blood Performing Organization Address City/[facility]/Zipcode Phone Number [facility] [address] [place], [place] [phone] after 11/20/2017 Insurance Payer Benefit Plan / Group Subscriber ID Type Phone Address MEDICARE MEDICARE A B xxxxxxxxxxx Medicare (Home) [phone] [place], [place] (Work) [phone] Advance Directives Patient has advance care planning documents, and code status on file. For more information, please contact:[address] [phone] Code Status Date Activated Date Inactivated Comments Full Code 10/01/2018 11:35 AM 10/03/2018 12:12 PM This code status was determined by: Patient Full Code 10/01/2018 5:36 AM 10/01/2018 11:35 AM This code status was determined by: Patient Full Code 09/28/2018 7:12 AM 10/01/2018 5:36 AM This code status was determined by: Patient Full Code 09/12/2018 12:51 PM 09/14/2018 7:57 PM This code status was determined by: Patient Full Code 09/12/2018 5:26 AM 09/12/2018 12:51 PM This code status was determined by: Patient
--- OUTSIDE RECORDS SUMMARY | 2018-11-21 17:40 | XMS REPORT ---
:1940 [facility] [address] [place] [address] Dr. Casillas [address] [place] [id number] Care Team Providers Name Role Phone DANIAL SMIHT Unavailable Unavailable Problems This patient has no known problems. Allergies, Adverse Reactions, Alerts This patient has no known allergies or adverse reactions. Medications This patient has no known medications. Results Test Description Test Time Test Comments Text Results Atomic Results Result Comments TISSUE EXAM 2018-10-04 17:04:00 Surgical Pathology Report Case: [id number] Authorizing Provider: Danial Smith, Collected: 10/01/2018 0904 Ordering Location: [facility] Received: 10/01/2018 1008 PERIOPERATIVE SERVICES Pathologist: Zeferino Warner MD Specimen: Plaque, RIGHT CAROTID PLAQUE/ ENDARTERECTOMY ARTERY, RIGHT CAROTID, ENDARTERECTOMY:CALCIFIC ATHEROSCLEROTIC PLAQUE Signing Pathologist Direct Phone Line: [phone] signed by Zeferino Warner MD on 10/04/2018 at 5:04 [id number]; [id number]. Right carotid plaque/endarterectomyThe specimen is received in formalin and consists of a portion of cylindrical calcified tissue measuring 4.5 x 0.9 x 0.9 cm. Reliability Technicians sections are in one cassette for decalcification. CB/plPerformed PLATELET AGGREGATION: FUNCTION SCREEN 2018-10-01 14:42:00 Test Item Value Reference Range Comments WEAK ADP RESULT(BEAKER) (test 56 % 60-91 snbu=5709) PLATELET FUNCTION SCREEN INTERP 50-59% indicates mild platelet (BEAKER) (test usii=0508) dysfunction [id number]-BVUNXRZYGQK-1926 (BEAKER) (test Genevieve Lin MD (electronic gaed=0629) signature) PLATELET COUNT AGG (BEAKER) (test 159 K/CU MM 150-450 cjmy=1042) Platelet Function Screen results may be falsely low with platelet counts<100, 000/cu mm.for patients on clopidogrel in past two weeksPOTASSIUM-STAT [id number] 12:04:00 Test Item Value Reference Range Comments POTASSIUM (BEAKER) (test uqtz=214) 4.0 meq/L 3.6-5.5 GLUCOSE-STAT [id number] 12:04:00 Test Item Value Reference Range Comments GLUCOSE RANDOM (BEAKER) (test ppjt=436) 139 mg/dL 70-110 HGB/HCT (H&H) - STAT [id number] 12:04:00 Test Item Value Reference Range Comments HEMOGLOBIN (BEAKER) (test ewmk=230) 10.5 g/dL 13.0-16.8 HEMATOCRIT (BEAKER) (test mfai=667) 31.0 % 40.0-50.0 PT/[id number] 06:25:00 Test Item Value Reference Range Comments PROTIME (BEAKER) (test gbnn=126) 14.5 seconds 11.9-14.2 INR (BEAKER) (test jizw=225) 1.2 <=5.9 PARTIAL THROMBOPLASTIN TIME (BEAKER) (test 48.4 seconds 22.5-36.0 afjd=708) Effective 08/15/2018: PT Reference Range ChangeNew: 11.9-14.2 Previous: 11.7- 14.7RECOMMENDED COUMADIN/WARFARIN INR THERAPY RANGESSTANDARD DOSE: 2.0-3.0 Includes: PROPHYLAXIS for venous thrombosis, systemic embolization; TREATMENT for venous thrombosis and/or pulmonary embolus.HIGH RISK: Target INR is2.5-3.5 for patients wiht mechanical heart valves.POCT-GLUCOSE [id number] 06:02:00 Test Item Value Reference Range Comments POC-GLUCOSE METER (BEAKER) 111 mg/dL 70-110 TESTED AT [facility] [address] [facility] (test nxnf=2285) [facility] [address] [id number] 12:11:00 Test Item Value Reference Range Comments PARTIAL THROMBOPLASTIN TIME (BEAKER) (test 67.7 seconds 22.5-36.0 xuxf=274) PROTHROMBIN [id number] 12:09:00 Test Item Value Reference Range Comments PROTIME (BEAKER) (test mayx=369) 15.3 seconds 11.9-14.2 INR (BEAKER) (test gmwx=513) 1.3 <=5.9 Effective 08/15/2018: PT Reference Range ChangeNew: 11.9-14.2 Previous: 11.7- 14.7RECOMMENDED COUMADIN/WARFARIN INR THERAPY RANGESSTANDARD DOSE: 2.0-3.0 Includes: PROPHYLAXIS for venous thrombosis, systemic embolization; TREATMENT for venous thrombosis and/or pulmonary embolus.HIGH RISK: Target INR is2.5-3.5 for patients wiht mechanical heart valves.BASIC METABOLIC [id number] 12:09: 00 Test Item Value Reference Range Comments SODIUM (BEAKER) (test 138 meq/L 136-145 wxbq=928) POTASSIUM (BEAKER) (test 4.5 meq/L 3.5-5.1 hurm=909) CHLORIDE (BEAKER) (test 106 meq/L 98-107 xkou=798) CO2 (BEAKER) (test 25 meq/L 22-29 ktfm=135) BLOOD UREA NITROGEN 21 mg/dL 7-21 (BEAKER) (test hfng=984) CREATININE (BEAKER) (test 0.87 mg/dL 0.57-1.25 nwto=966) GLUCOSE RANDOM (BEAKER) 95 mg/dL 70-105 (test nfvy=490) CALCIUM (BEAKER) (test 9.4 mg/dL 8.4-10.2 lwem=241) EGFR (BEAKER) (test 85 mL/min/1.73 sq m ESTIMATED GFR IS NOT xsna=0406) ACCURATE CREATININE CLEARANCE IN PREDICTING GLOMERULAR FILTRATION RATE. ESTIMATED GFR IS NOT APPLICABLE FOR DIALYSIS PATIENTS. CBC W/PLT COUNT & AUTO [id number] 11:53:00 Test Item Value Reference Range Comments WHITE BLOOD CELL COUNT (BEAKER) (test mdop=471) 4.7 K/ L 3.5-10.5 RED BLOOD CELL COUNT (BEAKER) (test rbuv=386) 3.82 M/ L 4.63-6.08 HEMOGLOBIN (BEAKER) (test miqp=341) 11.3 GM/DL 13.7-17.5 HEMATOCRIT (BEAKER) (test tcdg=766) 35.8 % 40.1-51.0 MEAN CORPUSCULAR VOLUME (BEAKER) (test ytoq=055) 93.7 fL 79.0-92.2 MEAN CORPUSCULAR HEMOGLOBIN (BEAKER) (test 29.6 pg 25.7-32.2 wfad=973) MEAN CORPUSCULAR HEMOGLOBIN CONC (BEAKER) (test 31.6 GM/DL 32.3-36.5 tpqw=562) RED CELL DISTRIBUTION WIDTH (BEAKER) (test 14.3 % 11.6-14.4 grcw=532) PLATELET COUNT (BEAKER) (test atod=437) 164 K/CU MM 150-450 MEAN PLATELET VOLUME (BEAKER) (test rsgv=423) 9.8 fL 9.4-12.4 NUCLEATED RED BLOOD CELLS (BEAKER) (test 0 /100 WBC 0-0 anab=649) NEUTROPHILS RELATIVE PERCENT (BEAKER) (test 60 % txyj=813) LYMPHOCYTES RELATIVE PERCENT (BEAKER) (test 22 % dmkn=712) MONOCYTES RELATIVE PERCENT (BEAKER) (test 10 % cnki=440) EOSINOPHILS RELATIVE PERCENT (BEAKER) (test 8 % enup=335) BASOPHILS RELATIVE PERCENT (BEAKER) (test 0 % egpw=709) NEUTROPHILS ABSOLUTE COUNT (BEAKER) (test 2.81 K/ L 1.78-5.38 rrmo=780) LYMPHOCYTES ABSOLUTE COUNT (BEAKER) (test 1.03 K/ L 1.32-3.57 ugci=842) MONOCYTES ABSOLUTE COUNT (BEAKER) (test 0.45 K/ L 0.30-0.82 hiby=456) EOSINOPHILS ABSOLUTE COUNT (BEAKER) (test 0.36 K/ L 0.04-0.54 iayd=087) BASOPHILS ABSOLUTE COUNT (BEAKER) (test 0.02 K/ L 0.01-0.08 kqgh=066) IMMATURE GRANULOCYTES-RELATIVE PERCENT (BEAKER) 0 % 0-1 (test hnwg=6966) TISSUE [id number] 14:34:00Surgical Pathology Report Case: [id number] Authorizing Provider: Danial Smith, Collected: 09/12/2018 0910 OrderingLocation: [facility] Received: 2018 1105 PERIOPERATIVE SERVICES Pathologist: Zeferino Warner MD Specimen: Plaque, LEFT CAROTID ARTERY PLAQUE ARTERY, LEFT CAROTID, ENDARTERECTOMY:CALCIFIC ATHEROSCLEROTIC PLAQUE WITH INTRAPLAQUE HEMORRHAGE Signing PathologistDirect Phone Line: [phone] signed by Zeferino Warner MD on 09/18/2018 at 2:34 [id number]; [id number] and postop diagnosis: left carotid stenosisLeft carotid artery plaqueReceived in saline labeled with the patient's name, accession number and "plaque" is a bifurcated, previously incised portion of yellow plaque measuring 3.2 x 1.0 x 0.5 cm. The specimen is serially sectioned to reveal focal areas of calcification measuring up to 0.3 cm in thickness. There are also focal areas of hemorrhage and necrosis. Reliability Technicians sections are submitted in A1, following decalcification. CG/pl PerformedTSH/FREE T4 IF [id number] 05:37:00 Test Item Value Reference Range Comments THYROID STIMULATING HORMONE (BEAKER) (test 0.76 uIU/mL 0.35-4.94 bhpj=762) TROPONIN [id number] 05:01:00 Test Item Value Reference Range Comments TROPONIN I (BEAKER) (test vbpr=716) < ng/mL 0.00-0.03 Troponin I (TnI) levels must be interpreted in the context of the presenting symptoms and the clinical findings. Elevated TnI levels indicate myocardial damage, but are not specific for ischemic heart disease. Elevated TnI levels are seen in patients with other cardiac conditions (including myocarditis and congestive heart failure), and slight TnI elevations occur in patients with other conditions, including sepsis, renal failure, acidosis, acute neurological disease, and persistent tachyarrhythmia.[id number] 04:53:00 Test Item Value Reference Range Comments MAGNESIUM (BEAKER) (test tqqo=756) 2.0 mg/dL 1.6-2.6 BASIC METABOLIC [id number] 04:53:00 Test Item Value Reference Range Comments SODIUM (BEAKER) (test 138 meq/L 136-145 gfbp=925) POTASSIUM (BEAKER) (test 3.7 meq/L 3.5-5.1 dafx=868) CHLORIDE (BEAKER) (test 107 meq/L 98-107 vzfg=214) CO2 (BEAKER) (test 26 meq/L 22-29 cpmv=454) BLOOD UREA NITROGEN 12 mg/dL 7-21 (BEAKER) (test gmhp=655) CREATININE (BEAKER) (test 0.80 mg/dL 0.57-1.25 iyyd=561) GLUCOSE RANDOM (BEAKER) 112 mg/dL 70-105 (test vtvv=195) CALCIUM (BEAKER) (test 9.0 mg/dL 8.4-10.2 pnvf=252) EGFR (BEAKER) (test 93 mL/min/1.73 sq m ESTIMATED GFR IS NOT xazd=6850) ACCURATE CREATININE CLEARANCE IN PREDICTING GLOMERULAR FILTRATION RATE. ESTIMATED GFR IS NOT APPLICABLE FOR DIALYSIS PATIENTS. PT/[id number] 04:53:00 Test Item Value Reference Range Comments PROTIME (BEAKER) (test mkjo=540) 13.8 seconds 11.9-14.2 INR (BEAKER) (test eeoh=576) 1.1 <=5.9 PARTIAL THROMBOPLASTIN TIME (BEAKER) (test 44.8 seconds 22.5-36.0 giun=397) Effective 08/15/2018: PT Reference Range ChangeNew: 11.9-14.2 Previous: 11.7- 14.7RECOMMENDED COUMADIN/WARFARIN INR THERAPY RANGESSTANDARD DOSE: 2.0-3.0 Includes: PROPHYLAXIS for venous thrombosis, systemic embolization; TREATMENT for venous thrombosis and/or pulmonary embolus.HIGH RISK: Target INR is2.5-3.5 for patients wiht mechanical heart valves.CBC (HEMOGRAM ONLY)2018-09-14 04:22:00 Test Item Value Reference Range Comments WHITE BLOOD CELL COUNT (BEAKER) (test axmj=950) 6.1 K/ L 3.5-10.5 RED BLOOD CELL COUNT (BEAKER) (test acla=401) 3.74 M/ L 4.63-6.08 HEMOGLOBIN (BEAKER) (test kmhf=685) 11.1 GM/DL 13.7-17.5 HEMATOCRIT (BEAKER) (test oval=072) 34.3 % 40.1-51.0 MEAN CORPUSCULAR VOLUME (BEAKER) (test ynds=130) 91.7 fL 79.0-92.2 MEAN CORPUSCULAR HEMOGLOBIN (BEAKER) (test 29.7 pg 25.7-32.2 oepf=972) MEAN CORPUSCULAR HEMOGLOBIN CONC (BEAKER) (test 32.4 GM/DL 32.3-36.5 varb=363) RED CELL DISTRIBUTION WIDTH (BEAKER) (test 14.4 % 11.6-14.4 rtmj=185) PLATELET COUNT (BEAKER) (test lrti=140) 115 K/CU MM 150-450 MEAN PLATELET VOLUME (BEAKER) (test qwoe=005) 11.1 fL 9.4-12.4 NUCLEATED RED BLOOD CELLS (BEAKER) (test 0 /100 WBC 0-0 kbez=340) CT, BRAIN, WITHOUT [id number] 18:45:00FINAL REPORT CT, BRAIN, WITHOUT CONTRAST CLINICAL INDICATION: r/o stroke COMPARISON : None TECHNIQUE: Noncontrast axial CT imaging of the brain and skull. DOSE REDUCTION: Dose modulation, iterative reconstruction, and/or weight-based adjustment of the mA/kV was utilized to reduce the radiation dose to as low as reasonably achievable. FINDINGS:No intracranial hemorrhage, midline shift or mass effect. [...] MR examination is recommended for further characterization. Signed:Shanelle Doe MDReport Verified Date/Time: 09/13/2018 18:45:50 Reading Location: [facility] B1 C013V Neuro Reading Room Electronically signed by: SHANELLE DOE MD on 2018 06:45 [facility] [id number] 16:04:00 Test Item Value Reference Range Comments TROPONIN I (BEAKER) (test froz=916) < ng/mL 0.00-0.03 Troponin I (TnI) levels must be interpreted in the context of the presenting symptoms and the clinical findings. Elevated TnI levels indicate myocardial damage, but are not specific for ischemic heart disease. Elevated TnI levels are seen in patients with other cardiac conditions (including myocarditis and congestive heart failure), and slight TnI elevations occur in patients with other conditions, including sepsis, renal failure, acidosis, acute neurological disease, and persistent tachyarrhythmia.TROPONIN [id number] 10:03:00 Test Item Value Reference Range Comments TROPONIN I (BEAKER) (test gacz=140) < ng/mL 0.00-0.03 Troponin I (TnI) levels must be interpreted in the context of the presenting symptoms and the clinical findings. Elevated TnI levels indicate myocardial damage, but are not specific for ischemic heart disease. Elevated TnI levels are seen in patients with other cardiac conditions (including myocarditis and congestive heart failure), and slight TnI elevations occur in patients with other conditions, including sepsis, renal failure, acidosis, acute neurological disease, and persistent tachyarrhythmia.CBC (HEMOGRAM ONLY)2018-09-13 06:53:00 Test Item Value Reference Range Comments WHITE BLOOD CELL COUNT (BEAKER) (test aobs=654) 7.9 K/ L 3.5-10.5 RED BLOOD CELL COUNT (BEAKER) (test vjup=947) 3.49 M/ L 4.63-6.08 HEMOGLOBIN (BEAKER) (test heoj=578) 10.4 GM/DL 13.7-17.5 HEMATOCRIT (BEAKER) (test pafp=630) 32.2 % 40.1-51.0 MEAN CORPUSCULAR VOLUME (BEAKER) (test nzkn=933) 92.3 fL 79.0-92.2 MEAN CORPUSCULAR HEMOGLOBIN (BEAKER) (test 29.8 pg 25.7-32.2 pjkz=193) MEAN CORPUSCULAR HEMOGLOBIN CONC (BEAKER) (test 32.3 GM/DL 32.3-36.5 mher=070) RED CELL DISTRIBUTION WIDTH (BEAKER) (test 14.2 % 11.6-14.4 rjiq=677) PLATELET COUNT (BEAKER) (test stnc=140) 109 K/CU MM 150-450 MEAN PLATELET VOLUME (BEAKER) (test xvpb=722) 11.2 fL 9.4-12.4 NUCLEATED RED BLOOD CELLS (BEAKER) (test 0 /100 WBC 0-0 mojx=791) [id number] 06:09:00 Test Item Value Reference Range Comments MAGNESIUM (BEAKER) (test qasn=240) 1.7 mg/dL 1.6-2.6 BASIC METABOLIC [id number] 06:09:00 Test Item Value Reference Range Comments SODIUM (BEAKER) (test 140 meq/L 136-145 frvv=926) POTASSIUM (BEAKER) (test 3.9 meq/L 3.5-5.1 nxge=959) CHLORIDE (BEAKER) (test 110 meq/L 98-107 kszq=395) CO2 (BEAKER) (test 25 meq/L 22-29 wfxw=875) BLOOD UREA NITROGEN 13 mg/dL 7-21 (BEAKER) (test fzsn=778) CREATININE (BEAKER) (test 0.81 mg/dL 0.57-1.25 rgks=965) GLUCOSE RANDOM (BEAKER) 109 mg/dL 70-105 (test pxag=794) CALCIUM (BEAKER) (test 8.8 mg/dL 8.4-10.2 oyoi=128) EGFR (BEAKER) (test 92 mL/min/1.73 sq m ESTIMATED GFR IS NOT jvbd=3879) ACCURATE CREATININE CLEARANCE IN PREDICTING GLOMERULAR FILTRATION RATE. ESTIMATED GFR IS NOT APPLICABLE FOR DIALYSIS PATIENTS. TROPONIN [id number] 06:02:00 Test Item Value Reference Range Comments TROPONIN I (BEAKER) (test luik=543) < ng/mL 0.00-0.03 Troponin I (TnI) levels must be interpreted in the context of the presenting symptoms and the clinical findings. Elevated TnI levels indicate myocardial damage, but are not specific for ischemic heart disease. Elevated TnI levels are seen in patients with other cardiac conditions (including myocarditis and congestive heart failure), and slight TnI elevations occur in patients with other conditions, including sepsis, renal failure, acidosis, acute neurological disease, and persistent tachyarrhythmia.PT/[id number] 05:45:00 Test Item Value Reference Range Comments PROTIME (BEAKER) (test vhis=336) 14.4 seconds 11.9-14.2 INR (BEAKER) (test pfdj=072) 1.2 <=5.9 PARTIAL THROMBOPLASTIN TIME (BEAKER) (test 50.1 seconds 22.5-36.0 klas=896) Effective 08/15/2018: PT Reference Range ChangeNew: 11.9-14.2 Previous: 11.7- 14.7RECOMMENDED COUMADIN/WARFARIN INR THERAPY RANGESSTANDARD DOSE: 2.0-3.0 Includes: PROPHYLAXIS for venous thrombosis, systemic embolization; TREATMENT for venous thrombosis and/or pulmonary embolus.HIGH RISK: Target INR is2.5-3.5 for patients wiht mechanical heart valves.PLATELET AGGREGATION: FUNCTION [id number] 15:58:00 Test Item Value Reference Range Comments WEAK ADP RESULT(BEAKER) (test 87 % 60-91 hftu=9313) PLATELET FUNCTION SCREEN 60-100% indicates normal INTERP (BEAKER) (test platelet function qwed=3457) GPHR-SJGXERSVXCD-8610 (BEAKER) Genevieve Lin MD (electronic (test riba=8547) signature) PLATELET COUNT AGG (BEAKER) 174 K/CU MM 150-450 (test sheg=7690) Platelet Function Screen results may be falsely low with platelet counts<100, 000/cu mm.for patients on clopidogrel in past two weeksfor patients on clopidogrel in past two weeksfor patients on clopidogrel in past two weeksBASIC METABOLIC [id number] 10:47:00 Test Item Value Reference Range Comments SODIUM (BEAKER) (test 141 meq/L 136-145 xebc=153) POTASSIUM (BEAKER) (test 3.9 meq/L 3.5-5.1 opkv=439) CHLORIDE (BEAKER) (test 113 meq/L 98-107 kict=196) CO2 (BEAKER) (test 25 meq/L 22-29 izzv=760) BLOOD UREA NITROGEN 24 mg/dL 7-21 (BEAKER) (test xuei=759) CREATININE (BEAKER) (test 0.84 mg/dL 0.57-1.25 bxax=491) GLUCOSE RANDOM (BEAKER) 133 mg/dL 70-105 (test wzkt=613) CALCIUM (BEAKER) (test 8.5 mg/dL 8.4-10.2 rehk=492) EGFR (BEAKER) (test 88 mL/min/1.73 sq m ESTIMATED GFR IS NOT aisl=2684) ACCURATE CREATININE CLEARANCE IN PREDICTING GLOMERULAR FILTRATION RATE. ESTIMATED GFR IS NOT APPLICABLE FOR DIALYSIS PATIENTS. PROTHROMBIN [id number] 10:27:00 Test Item Value Reference Range Comments PROTIME (BEAKER) (test brgz=448) 15.4 seconds 11.9-14.2 INR (BEAKER) (test hgnj=520) 1.3 <=5.9 Effective 08/15/2018: PT Reference Range ChangeNew: 11.9-14.2 Previous: 11.7- 14.7RECOMMENDED COUMADIN/WARFARIN INR THERAPY RANGESSTANDARD DOSE: 2.0-3.0 Includes: PROPHYLAXIS for venous thrombosis, systemic embolization; TREATMENT for venous thrombosis and/or pulmonary embolus.HIGH RISK: Target INR is2.5-3.5 for patients wiht mechanical heart valves.CBC W/PLT COUNT & AUTO [id number] 10:19:00 Test Item Value Reference Range Comments WHITE BLOOD CELL COUNT (BEAKER) (test aoas=830) 8.1 K/ L 3.5-10.5 RED BLOOD CELL COUNT (BEAKER) (test wvem=693) 3.50 M/ L 4.63-6.08 HEMOGLOBIN (BEAKER) (test zjwx=197) 10.4 GM/DL 13.7-17.5 HEMATOCRIT (BEAKER) (test hyhz=444) 32.6 % 40.1-51.0 MEAN CORPUSCULAR VOLUME (BEAKER) (test kyhl=545) 93.1 fL 79.0-92.2 MEAN CORPUSCULAR HEMOGLOBIN (BEAKER) (test 29.7 pg 25.7-32.2 lmys=124) MEAN CORPUSCULAR HEMOGLOBIN CONC (BEAKER) (test 31.9 GM/DL 32.3-36.5 khwc=548) RED CELL DISTRIBUTION WIDTH (BEAKER) (test 14.3 % 11.6-14.4 ebid=188) PLATELET COUNT (BEAKER) (test imts=279) 105 K/CU MM 150-450 MEAN PLATELET VOLUME (BEAKER) (test llbq=679) 11.0 fL 9.4-12.4 NUCLEATED RED BLOOD CELLS (BEAKER) (test 0 /100 WBC 0-0 qklx=864) NEUTROPHILS RELATIVE PERCENT (BEAKER) (test 72 % ecec=707) LYMPHOCYTES RELATIVE PERCENT (BEAKER) (test 14 % cwyu=574) MONOCYTES RELATIVE PERCENT (BEAKER) (test 9 % xzev=973) EOSINOPHILS RELATIVE PERCENT (BEAKER) (test 5 % nycs=760) BASOPHILS RELATIVE PERCENT (BEAKER) (test 0 % sjcp=816) NEUTROPHILS ABSOLUTE COUNT (BEAKER) (test 5.82 K/ L 1.78-5.38 clst=696) LYMPHOCYTES ABSOLUTE COUNT (BEAKER) (test 1.14 K/ L 1.32-3.57 yzol=959) MONOCYTES ABSOLUTE COUNT (BEAKER) (test 0.70 K/ L 0.30-0.82 whze=750) EOSINOPHILS ABSOLUTE COUNT (BEAKER) (test 0.42 K/ L 0.04-0.54 kvov=392) BASOPHILS ABSOLUTE COUNT (BEAKER) (test 0.02 K/ L 0.01-0.08 orcm=710) IMMATURE GRANULOCYTES-RELATIVE PERCENT (BEAKER) 1 % 0-1 (test ghwg=9391) BLOOD GAS, [id number] 10:15:00 Test Item Value Reference Range Comments PH ARTERIAL (BEAKER) (test cydr=538) 7.36 7.35-7.45 PCO2 ARTERIAL (BEAKER) (test nmoz=082) 43 mmHg 35-45 PO2 ARTERIAL (BEAKER) (test ixxx=186) 76 mmHg 80-90 O2 SATURATION ARTERIAL (BEAKER) (test bztb=016) 94.7 % 96.0-97.0 HCO3 ARTERIAL (BEAKER) (test webp=505) 24 mmol/L 21-29 BASE EXCESS ARTERIAL (BEAKER) (test znxv=912) -1.9 mmol/L -2.0-3.0 PATIENT TEMPERATURE (BEAKER) (test wyow=5038) 37.0 C FIO2 (BEAKER) (test sgtd=3710) 21.0 % Only if arterial line in place and/or patient on ventilatorSODIUM NA-STAT [id number] 08:48:00 Test Item Value Reference Range Comments SODIUM (BEAKER) (test ogbz=013) 141 meq/L 135-148 POTASSIUM-STAT [id number] 08:48:00 Test Item Value Reference Range Comments POTASSIUM (BEAKER) (test gpmq=988) 3.7 meq/L 3.6-5.5 BLOOD GAS, [id number] 08:48:00 Test Item Value Reference Range Comments PH ARTERIAL (BEAKER) (test oroo=786) 7.41 7.35-7.45 PCO2 ARTERIAL (BEAKER) (test drtv=659) 37 mmHg 35-45 PO2 ARTERIAL (BEAKER) (test jwqj=994) 513 mmHg 80-90 O2 SATURATION ARTERIAL (BEAKER) (test cxck=448) 99.9 % 96.0-97.0 HCO3 ARTERIAL (BEAKER) (test vudl=141) 23 mmol/L 21-29 BASE EXCESS ARTERIAL (BEAKER) (test kbfj=634) -1.4 mmol/L -2.0-3.0 PATIENT TEMPERATURE (BEAKER) (test aqht=3003) 36.0 C FIO2 (BEAKER) (test kxjt=4672) 100.0 % GLUCOSE-STAT [id number] 08:48:00 Test Item Value Reference Range Comments GLUCOSE RANDOM (BEAKER) (test zlmd=676) 117 mg/dL 70-110 HGB/HCT (H&H) - STAT [id number] 08:48:00 Test Item Value Reference Range Comments HEMOGLOBIN (BEAKER) (test hkcn=095) 11.1 g/dL 13.0-16.8 HEMATOCRIT (BEAKER) (test pzva=016) 33.0 % 40.0-50.0 CALCIUM, [id number] 08:48:00 Test Item Value Reference Range Comments CALCIUM IONIZED (BEAKER) (test essf=003) 1.11 mmol/L 1.12-1.27 PH, BLOOD (BEAKER) (test depw=9598) 7.40 BASIC METABOLIC [id number] 06:59:00 Test Item Value Reference Range Comments SODIUM (BEAKER) (test 141 meq/L 136-145 fqvr=729) POTASSIUM (BEAKER) (test 3.9 meq/L 3.5-5.1 cbrp=606) CHLORIDE (BEAKER) (test 109 meq/L 98-107 manx=121) CO2 (BEAKER) (test 26 meq/L 22-29 afgr=543) BLOOD UREA NITROGEN 23 mg/dL 7-21 (BEAKER) (test ppxw=072) CREATININE (BEAKER) (test 0.97 mg/dL 0.57-1.25 svtd=562) GLUCOSE RANDOM (BEAKER) 110 mg/dL 70-105 (test mctj=926) CALCIUM (BEAKER) (test 9.2 mg/dL 8.4-10.2 gmdx=313) EGFR (BEAKER) (test 75 mL/min/1.73 sq m ESTIMATED GFR IS NOT kvmo=2331) ACCURATE CREATININE CLEARANCE IN PREDICTING GLOMERULAR FILTRATION RATE. ESTIMATED GFR IS NOT APPLICABLE FOR DIALYSIS PATIENTS. PT/[id number] 06:46:00 Test Item Value Reference Range Comments PROTIME (BEAKER) (test ogwm=005) 13.9 seconds 11.9-14.2 INR (BEAKER) (test csym=586) 1.1 <=5.9 PARTIAL THROMBOPLASTIN TIME (BEAKER) (test 51.8 seconds 22.5-36.0 lvfe=376) Effective 08/15/2018: PT Reference Range ChangeNew: 11.9-14.2 Previous: 11.7- 14.7RECOMMENDED COUMADIN/WARFARIN INR THERAPY RANGESSTANDARD DOSE: 2.0-3.0 Includes: PROPHYLAXIS for venous thrombosis, systemic embolization; TREATMENT for venous thrombosis and/or pulmonary embolus.HIGH RISK: Target INR is2.5-3.5 for patients wiht mechanical heart valves.PROTHROMBIN [id number] 06:45: 00 Test Item Value Reference Range Comments PROTIME (BEAKER) (test qkzi=284) 13.9 seconds 11.9-14.2 INR (BEAKER) (test qtyt=000) 1.1 <=5.9 Effective 08/15/2018: PT Reference Range ChangeNew: 11.9-14.2 Previous: 11.7- 14.7RECOMMENDED COUMADIN/WARFARIN INR THERAPY RANGESSTANDARD DOSE: 2.0-3.0 Includes: PROPHYLAXIS for venous thrombosis, systemic embolization; TREATMENT for venous thrombosis and/or pulmonary embolus.HIGH RISK: Target INR is2.5-3.5 for patients wiht mechanical heart valves.POCT-GLUCOSE [id number] 06:24:00 Test Item Value Reference Range Comments POC-GLUCOSE METER (BEAKER) 117 mg/dL 70-110 TESTED AT [facility] [address] [facility] (test ivyw=9713) [facility] [address] RAD, CHEST, 2 [id number] 13:32:00Reason for exam:->preop Should this be performed at the bedside?->YesFINAL REPORT PA and Lateral views of the [...] left favor chronic changes. Signed: Derik Odom MDReport Verified Date/Time: 09/04/2018 13:32:54 Reading Location: [facility] B1 [id number] Consult Reading Room CBC W/PLT COUNT & AUTO [id number] 12:57:00 Test Item Value Reference Range Comments WHITE BLOOD CELL COUNT (BEAKER) (test cemc=799) 10.1 K/ L 3.5-10.5 RED BLOOD CELL COUNT (BEAKER) (test dsai=371) 3.99 M/ L 4.63-6.08 HEMOGLOBIN (BEAKER) (test dtqf=949) 11.9 GM/DL 13.7-17.5 HEMATOCRIT (BEAKER) (test opwr=507) 37.3 % 40.1-51.0 MEAN CORPUSCULAR VOLUME (BEAKER) (test tnnp=749) 93.5 fL 79.0-92.2 MEAN CORPUSCULAR HEMOGLOBIN (BEAKER) (test 29.8 pg 25.7-32.2 ozcq=316) MEAN CORPUSCULAR HEMOGLOBIN CONC (BEAKER) (test 31.9 GM/DL 32.3-36.5 xccc=667) RED CELL DISTRIBUTION WIDTH (BEAKER) (test 14.1 % 11.6-14.4 wkcj=311) PLATELET COUNT (BEAKER) (test odbk=461) 117 K/CU MM 150-450 MEAN PLATELET VOLUME (BEAKER) (test pqwn=178) 10.8 fL 9.4-12.4 NUCLEATED RED BLOOD CELLS (BEAKER) (test 0 /100 WBC 0-0 oaob=990) NEUTROPHILS RELATIVE PERCENT (BEAKER) (test 72 % nbiy=181) LYMPHOCYTES RELATIVE PERCENT (BEAKER) (test 17 % iglt=106) MONOCYTES RELATIVE PERCENT (BEAKER) (test 10 % gmkx=773) EOSINOPHILS RELATIVE PERCENT (BEAKER) (test 1 % rxhv=584) BASOPHILS RELATIVE PERCENT (BEAKER) (test 0 % zoey=850) NEUTROPHILS ABSOLUTE COUNT (BEAKER) (test 7.25 K/ L 1.78-5.38 szys=343) LYMPHOCYTES ABSOLUTE COUNT (BEAKER) (test 1.71 K/ L 1.32-3.57 hwtb=232) MONOCYTES ABSOLUTE COUNT (BEAKER) (test 1.05 K/ L 0.30-0.82 wpst=469) EOSINOPHILS ABSOLUTE COUNT (BEAKER) (test 0.07 K/ L 0.04-0.54 nuog=657) BASOPHILS ABSOLUTE COUNT (BEAKER) (test 0.02 K/ L 0.01-0.08 uond=615) IMMATURE GRANULOCYTES-RELATIVE PERCENT (BEAKER) 0 % 0-1 (test katx=6900)
[2018-11-21 17:58] VITALS: BMI 24.7
[2018-11-21] MEDS ORDERED: LOPERAMIDE HCL 2 MG CAPSULE PO PRN (18:00)
[2018-11-21] MEDS ORDERED: DIPHENHYDRAMINE 25 MG TAB/CAP PO PRN (18:00)
[2018-11-21] MEDS ORDERED: ACETAMINOPHEN 325 MG TABLET PO PRN (18:00)
[2018-11-21] MEDS ORDERED: POLYETHYL GLY 3350 17 GM/DOSE PO PRN (18:00)
[2018-11-21] MEDS ORDERED: ONDANSETRON 4 MG/2 ML VIAL IV PRN (18:00)
[2018-11-21] MEDS ORDERED: ONDANSETRON 4 MG (ODT) TAB PO PRN (18:00)
[2018-11-21] MEDS ORDERED: ALBUTEROL 2.5 MG/3 ML NEB SOL IH PRN (18:02)
[2018-11-21] MEDS: NACHLORIDE 0.45% 1,000 ML IV SCH (18:54)
[2018-11-21] MEDS ORDERED: ENOXAPARIN 40 MG/0.4 ML SQ SCH (19:00)
[2018-11-21] MEDS ORDERED: PNEUMOCOCCAL VACCINE 0.5 ML IMVAC ONE (19:00)
[2018-11-21 19:23] LABS: Albumin 3.5 g/dL (3.4-5.0); Bilirubin Direct 0.2 mg/dL (0-0.2); Bilirubin Total 0.5 mg/dL (0.2-1.0); Protein, Total 7.4 g/dL (6.4-8.2)
[2018-11-21] MEDS: IPRATROPIUM BROM 0.5MG/2.5ML IH SCH (19:25)
[2018-11-21] MEDS: LEVALBUTEROL 1.25 MG/3 ML NEB IH SCH (19:25)
--- NOTE | 2018-11-21 21:02 | RAD REPORT ---
EXAM DESCRIPTION: CT - Chest Abd Pelvis Wo Con - 11/21/2018 8:48 pm CLINICAL HISTORY: Chest and abdomen pain. leukocytosis, melena, weight loss COMPARISON: Thorax Wo Con dated 06/28/2018; Stone Protocol dated 02/06/2016; CT ABDOMEN PELVIS WO CON TRAST dated 07/29/2014 TECHNIQUE: A limited noncontrast study was performed. Oral contrast was administered. All CT scans are performed using dose optimization technique as appropriate and may include automated exposure control or mA/KV adjustment according to patient size. FINDINGS: Emphysematous changes are present throughout the lungs with areas of fibrosis seen particu larly in the left lung.Mildly prominent lymph nodes are seen in both axilla, unchanged.No pleural or pericardial effusion. The distal aspect of the stomach demonstrates moderate wall thickening. Noncontrast assessment of the liver demonstrates no aggressive mass or biliary dilatation. A few smal l low-density liver lesions are seen likely cysts. The spleen, pancreas, adrenal glands and kidneys a re within normal limits for noncontrast evaluation. Benign left renal cyst noted measuring 25 mm. Cho lecystectomy clips. No bowel obstruction, free air, free fluid or abscess. The urinary bladder appears diffusely thickene d. No pathologic lymphadenopathy in the abdomen or pelvis. Bilateral inguinal hernias are present co ntaining fat, slightly larger on the left where a small mild of the sigmoid colon is seen entering th e hernia. . Soft tissue structure seen adjacent to the right renal artery measuring 33 x 22 mm within rim calcification. 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 Orthopedic hardware is present in the lumbar spine. IMPRESSION: Moderate thickening of the distal stomach is noted. Upper endoscopy may be of value for further assessment. Prominent circumferential urinary bladder thickening. Moderate left inguinal hernia containing fat and a small section of the sigmoid colon without bowel o bstruction.
[2018-11-21 21:22] LABS: Urine Appearance CLEAR; Urine Bilirubin NEGATIVE (NEG); Urine Blood 2+ (NEG); Urine Color YELLOW; Urine Glucose NEGATIVE (NEG); Urine Protein TRACE (NEG); Urine Urobilinogen 0.2 mg/dL (0.2-1.0)
[2018-11-21 21:37] LABS: Urine Bacteria <20 /HPF (NONE SEEN); Urine Microscopic Reflex ORDER UMIC
[2018-11-21 21:38] LABS: Urine Culture Reflex Order NOT NEEDED
[2018-11-21] MEDS: SOTALOL HCL 80 MG TAB PO SCH (21:50)
[2018-11-21] MEDS ORDERED: NA CHLORIDE 0.9% 100 ML IV ONE (23:06)
[2018-11-21] MEDS ORDERED: PIPERACIL/TAZO 3.375 GM VIAL IV ONE (23:11)
[2018-11-21] MEDS: PIPER/TAZO/NS 3.375gm 3.375 GM/100 ML BAG IVPB SCH (23:25)
[2018-11-22] MEDS: LEVALBUTEROL 1.25 MG/3 ML NEB IH SCH ×4 (01:05→20:00)
[2018-11-22] MEDS: IPRATROPIUM BROM 0.5MG/2.5ML IH SCH ×4 (01:05→20:00)
[2018-11-22 04:26] LABS: Absolute Lymphocytes (CBC) 1.5 K/uL (0.7-4.9); Basophils % 0.1 % (0-1.3); Hematocrit 32.8 % (39.6-49.0); RBC Red Blood Cell Count 3.55 M/uL (4.33-5.43)
[2018-11-22 04:43] LABS: Magnesium 2.2 mg/dL (1.8-2.4); Potassium 4.2 mmol/L (3.5-5.1)
[2018-11-22 04:53] LABS: Blood Morphology Comment NOT SEEN (NOT SEEN); Platelet Estimate ADEQ
[2018-11-22] MEDS ORDERED: NA CHLORIDE 0.9% 100 ML IV ONE (05:40)
[2018-11-22] MEDS: PIPER/TAZO/NS 3.375gm 3.375 GM/100 ML BAG IVPB SCH (05:48)
[2018-11-22] MEDS: SOTALOL HCL 80 MG TAB PO SCH ×2 (08:51→21:14)
[2018-11-22] MEDS: CLOPIDOGREL 75 MG TABLET PO SCH (08:52)
[2018-11-22] MEDS: AMLODIPINE 10 MG TAB PO SCH (08:52)
[2018-11-22] MEDS: LOSARTAN POTASSIUM 50 MG TABLET PO SCH (08:52)
[2018-11-22] MEDS: PANTOPRAZOLE 40 MG INJ IV SCH (08:53)
[2018-11-22] MEDS: SODIUM CHLORIDE 0.9% 10ML INJ IV SCH (08:57)
[2018-11-22] MEDS ORDERED: ATORVASTATIN 80 MG TAB PO SCH ×2 (09:00→21:00)
[2018-11-22] MEDS ORDERED: SOTALOL HCL 60 MG PO SCH (09:00)
[2018-11-22] MEDS ORDERED: HOME MED 1 EA UNK (Omeprazole [Omeprazole] 1 TAB) PO SCH (09:00)
[2018-11-22 10:33] LABS: Absolute Lymphocytes (CBC) 1.4 K/uL (0.7-4.9); Basophils % 0.1 % (0-1.3); Hematocrit 33.9 % (39.6-49.0); MPV 8.6 fL (7.6-11.3); RBC Red Blood Cell Count 3.67 M/uL (4.33-5.43)
[2018-11-22] MEDS ORDERED: PIPER/TAZO/NS 3.375gm 3.375 GM/100 ML BAG IVPB SCH (11:00)
[2018-11-22] MEDS ORDERED: LIDOCAINE 1% MPF 5 ML VIAL ONE (15:39)
[2018-11-22] MEDS ORDERED: PROPOFOL 200 MG/20 ML VIAL IV ONE (15:39)
[2018-11-22] MEDS ORDERED: GLYCOPYRROLATE 0.2 MG/ML SYR ONE ×2 (15:48→15:49)
--- NOTE | 2018-11-22 17:49 | P.PN ---
Subjective Date of Service: 11/22/18 Chief Complaint: STILL DIARRHEA,BROWN STOOL , WEAK. Subjective: No new changes MR. KUO HAS LOST WEIGHT, CONTINUES TO HAVE DIARRHEA. HE IS GENERALLY WEAK. Review of Systems 10-point ROS is otherwise unremarkable General: Weakness, Malaise Gastrointestinal: Diarrhea Physical Examination - Vital Signs Temperature: 97.4 F Blood Pressure: 131/79 Pulse: 81 Respirations: 16 Pulse Ox (%): 94 - Physical Exam General: Alert, Mild distress HEENT: Atraumatic, PERRLA, EOMI Neck: Supple, JVD not distended Respiratory: Clear to auscultation bilaterally, Normal air movement Cardiovascular: Regular rate/rhythm, Normal S1 S2 Gastrointestinal: Normal bowel sounds, No tenderness Musculoskeletal: No tenderness Integumentary: No rashes Neurological: Normal speech, Normal tone, Normal affect Lymphatics: No axilla or inguinal lymphadenopathy - Studies Laboratory Data (last 24 hrs) 11/22/18 10:20: WBC 22.9 H*, Hgb 11.0 L, Hct 33.9 L, Plt Count 145 L 11/22/18 04:02: Sodium 143, Potassium 4.2, BUN 13, Creatinine 1.05, Glucose 111 H, Magnesium 2.2 11/22/18 04:02: WBC 21.9 H*, Hgb 10.9 L, Hct 32.8 L, Plt Count 131 L 11/21/18 18:50: Total Bilirubin 0.5, AST 40 H, ALT 57, Alkaline Phosphatase 199 H Medications List Reviewed: Yes Assessment And Plan - Current Problems (Diagnosis) (1) Eosinophilia Current Visit: Yes Status: Acute Plan: UNCLEAR WHY HE HAS EOSINOPHILIA. HIS MEDS DON'T SHOW A REASON. DIARRHEA- STOOL OVA AND PARASITES PENDING FROM FEW DAYS AGO. I HAD DR. CALLES LOOK AT [facility]MEAR. SHE SAYS THERE ARE MATURE EOSINOPHILS BUT SHE WILL DO ONE MORE TEST AT [facility]. NO SIGNS OF FUNGAL DISEASE. (2) Diarrhea Current Visit: Yes Status: Chronic Plan: HE IS TO DO COLONOSCOPY OP. EGD SHOWED DIFFUSE GASTRITIS TODAY.
[2018-11-23] MEDS: LEVALBUTEROL 1.25 MG/3 ML NEB IH SCH ×3 (02:00→13:25)
[2018-11-23] MEDS: IPRATROPIUM BROM 0.5MG/2.5ML IH SCH ×3 (02:00→13:25)
--- NOTE | 2018-11-23 02:51 | OP ---
Surgeon: Riki Valentine MD Procedure To Be Performed: Esophagogastroduodenoscopy. Indications For Procedure: History of suspected GI bleed, but more importantly CAT scan showing abno rmal thickening of the gastric antrum. Plan For Anesthesia: Monitored anesthesia care. Complexity: Average. Technique: After obtaining informed consent from the patient and explaining risks and complications, which include but are not limited to bleeding, infection, perforation, and anesthesia complication, patient was placed in the left lateral position and sedation was given. From then on, the scope was advanced through the mouth and carefully guided up to the third portion of the duodenum. After the c ompletion of examination, scope and equipment were withdrawn and procedure terminated in a safe leonie r. Findings: Esophagus: No gross lesion seen in the entire esophagus. Z-line was at 40 cm. Due to pe ripheral eosinophilia, biopsies were taken from the mid esophagus to rule out eosinophilic esophagiti s. Stomach: In the whole stomach, there were multiple erosions with moderate erythematous and edema tous mucosa that was seen. No crated ulcer or any other mass lesion identified. Multiple biopsies t aken from the antrum and body. Duodenum: The bulb, second and third portions that were visualized a ppeared normal. Small bowel biopsies also taken. Complications: None. Tolerance To Anesthesia: Excellent. Postoperative Diagnosis: Gastritis with multiple erosions, otherwise no other findings. Plan: 1.Await pathology results. 2.Oral PPI b.i.d. 3.Avoid NSAIDs. 4.As far as his chronic diarrhea is concerned, further workup can be undertaken as an outpatient bas is once acute pathologies have been ruled out. US/MODL Voice ID: [id number] Report ID: [id number]
[2018-11-23] MEDS: NACHLORIDE 0.45% 1,000 ML IV SCH (03:20)
[2018-11-23 06:14] LABS: Absolute Lymphocytes (CBC) 1.3 K/uL (0.7-4.9); Basophils % 0.1 % (0-1.3); Hematocrit 32.5 % (39.6-49.0); Lymphocytes % 6.4 % (15.3-44.8); MPV 9.3 fL (7.6-11.3); RBC Red Blood Cell Count 3.53 M/uL (4.33-5.43)
[2018-11-23 06:42] LABS: Magnesium 2.2 mg/dL (1.8-2.4); Potassium 3.7 mmol/L (3.5-5.1)
[2018-11-23] MEDS: SODIUM CHLORIDE 0.9% 10ML INJ IV SCH (09:00)
[2018-11-23] MEDS: AMLODIPINE 10 MG TAB PO SCH (09:04)
[2018-11-23] MEDS: SOTALOL HCL 80 MG TAB PO SCH (09:09)
[2018-11-23] MEDS: CLOPIDOGREL 75 MG TABLET PO SCH (09:10)
[2018-11-23] MEDS: PANTOPRAZOLE 40 MG INJ IV SCH (09:11)
[2018-11-23] MEDS: LOSARTAN POTASSIUM 50 MG TABLET PO SCH (09:11)
--- NOTE | 2018-11-23 09:35 | RAD REPORT ---
EXAM DESCRIPTION: MRI - Cholangiogram - 11/23/2018 8:40 am CLINICAL HISTORY: Abdominal pain, weight loss, prior cholecystectomy COMPARISON: CT imaging November 21, 2018 TECHNIQUE: Axial and coronal heavily T2 weighted sequences were obtained. Coronal T2 HASTE fat satur ation static and coronal multiplane reconstruction imaging generated and reviewed. Horizontal and sharmin tical axis rotational views obtained using maximum intensity projection (MIP) protocol. FINDINGS: Gallbladder is absent. No biloma or bile leak evident. No pancreatic duct dilatation pancreatic duct filling defect. No intrahepatic or extrahepatic biliary tree dilatation. No duct stone identified. There is tortuosit y of the distal bile duct in the head of the pancreas. There is a short segment narrowing of the bile duct within the head of the pancreas region. This may be normal variant for the patient. The focal n arrowing does not create upstream dilatation. No evidence for mass in the head of the pancreas on the CT study. IMPRESSION: Tortuosity of the distal most common bile duct in the head of the pancreas with short-se gment focal narrowing. No evidence for mass in the head of the pancreas on the CT study. This may be normal variant or small stricture. The presence of the focal narrowing does not create proximal biliary dilatation. No duct stone seen. No pancreatic duct abnormality identified. Gallbladder is absent with no biloma or bile leak evident.
[2018-11-23 10:33] LABS: Absolute Lymphocytes (CBC) 1.1 K/uL (0.7-4.9); Basophils % 0.1 % (0-1.3); Hematocrit 36.6 % (39.6-49.0); Lymphocytes % 5.9 % (15.3-44.8); MPV 9.1 fL (7.6-11.3); RBC Red Blood Cell Count 3.94 M/uL (4.33-5.43)
[2018-11-23 11:05] LABS: Blood Morphology Comment NOT SEEN (NOT SEEN); Platelet Estimate ADEQ
--- NOTE | 2018-11-23 11:18 | P.CNS ---
Date of Consult: 11/23/18 (Hematology) REASON FOR CONSULTATION: Eosinophilia. HPI: Patient is a 78 year old man presented to his pcp office with c/o of lower abdominal discomfort, urinary urgency for atleast 2 weeks. He reports some wt loss, and diarrhea as well with an episode of dark stools. Stool occult bood was positive[place] [address] [place] [address] and was hospitalized for further work up. He had imaging studies which revealed some stomach wall thickening following which he had EGD which showed PUD/ gastritis. His s/s seem to have improved since hospitalization. He does feel weak but comparatively much better than before. Denies any MCPHERSON, blurred vision, N/V, fevers, chills, night sweats, abnormal swellings, rash, itching. Denies CP, SOB , cough. Denies recent travel, parasitic infections, change in meds, OTC/ herbal meds etc. He has seasonal allergies but does not seem to bother him. 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 [place] [address] and absolute eosinophils around 4000. He had elevated IgE levels, unremarkable flow and normal tryptase. Eosinophils eventually normalized. It was felt that his eosinophilia was likely secondary to allergies. ROS: a 14 point ROS was done and pertinent points as in HPI PMH:CAD, Carotid stenosis, COPD, hypertension, hyperlipidemia PSH: CABG, knee replacement left, laminectomy lumbar, Angiogram 08/2018 SH: Exsmoker and significant alcohol use. Denies recreational drug use. 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 Head: normocephalic, atraumatic. Eyes: anicteric, no injection of conjunctivae; no pallor Ears: grossly intact Nose: nares patent. Throat: no erythema, no exudate. Neck: neck supple, without lymphadenopathy. Respiratory: good respiratory effort, clear to auscultation; no wheezing. Cardiovascular: regular rate and rhythm, no murmurs, no cyanosis. Abdomen: bowel sounds present and equal in all four quadrants, abdomen is soft, nontender, nondistended, no masses, no hepatosplenomegaly. Peripheral Vascular: no edema, no calf tenderness Musculoskeletal: normal gait and posture; Neurological: AAOx3; power 5/5 all extremities; NFND Lymph: no palpable supraclavicular, submental, cervical, axillary, inguinal LAD. Psych: good mood, insight and judgement PERTINENT LABS: 08/2018: WBC 5000/ AEC 400 11/2018: WBC 76064/ AEC 22636/ ANC 3100 Hb 12/ RBC 3.9/ MCV 93 Plt 148 ESR 29 Dimers 1652 TP 7.4/Alb 3.9/ Alb 3.5 IgE elevated 222 in 06/2014 Imaging: CT abdomen: distal stomach thickening; bladder wall thickening; no visible LAD ( done without contrast) ASSESSMENT/ RECOMMENDATIONS: 78 year old man presents with GI and urinary symptoms and noted to have leucocytosis/ severe eosinophilia He had a similar presentation in 2014 with severe eosinophila at ~4000 with gradual and spontaneous resolution of s/s. Work up at that time favored allergic etiology. Hypereosinophilia in the peripheral blood is defined as an absolute eosinophil count >1500. His eosinophil count was 19,000 on admission. Hyper-eosinphilic syndrome is associated with evidence of end organ damage provided potential causes of the damage are excluded. His GI s/s might be due to hyper-eosinophilia or vice versa. His s/s are gradually resolving and so is the eosinophil count (14,500 today from 30196) As per pathology, smear apparently shows mature eosinophils, no significant left shift or blasts. Eosinophilia can be due to allergies, drugs, parasitic infections, myeloproliferative/ other hematological BM etiologies or other malignancy. A comprehensive work up is warranted including basic work up to r/o common causes and also for BM etiologies. Send for tryptase, IgE and other immunoglobulins, SPEP/STEPHANIE, B12. FISH for eosinophilia has been sent already after hematopathologist consultation. Stool for ova cysts, parasites. Consider testing for strongyloides Will consider a bone marrow biopsy after initial work up results have been reviewed. No indication for emergent treatment at this time. Will continue to monitor. 2. Bladder wall thickening: Urine shows 2+blood. He seems to have a prior h/o bladder wall thickening. Recommend Urology eval. 3. GI bleed/ diarrhea: He is currently undergoing evaluation with EGD, colonsocopy etc. Follow up GI. Please do not hesitate to call me with any questions. My clinic contact details have been given to patient and he was advised to follow up as outpatient in the event of discharge.
[2018-11-23 12:40] VITALS: O2SAT 93
[2018-11-23 13:01] VITALS: BP 156/80; TEMP 97.8
--- NOTE | 2018-11-23 14:46 | P.DS ---
Admission Date: 11/21/18 Discharge Date: 11/23/18 Disposition: ROUTINE DISCHARGE Discharge Condition: FAIR Reason for Admission: STILL DIARRHEA,BROWN STOOL , WEAK. - Problems (1) Eosinophilia Current Visit: Yes Status: Acute (2) Diarrhea Current Visit: Yes Status: Chronic Hospital Course: MR. KUO HAS SEVERE EOSINOPHILIA AND DIARREHA. 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 HE HAD EGD THAT SHOWED GASTRITIS. MRCP WAS DONE BECASEU OF MILD ALK PHOS ELEVATION. IT SHOWS PANCREATIC DUCT STRITURE. HE NEEDS TO VISIT. DR. BAILON FOR IT. HE IS STABLE FOR DC. DR. PATE WILL DO FU CRC. Vital Signs/Physical Exam: Temp Pulse Resp BP Pulse Ox 97.8 F 82 18 156/80 H 95 11/23/18 12:00 11/23/18 12:00 11/23/18 12:00 11/23/18 12:00 11/23/18 12:00 Laboratory Data at Discharge: WBC 19.4 K/uL (4.3-10.9) H 11/23/18 10:16 Hgb 12.1 g/dL (13.6-17.9) L 11/23/18 10:16 Hct 36.6 % (39.6-49.0) L 11/23/18 10:16 Plt Count 162 K/uL (152-406) 11/23/18 10:16 Sodium 144 mmol/L (136-145) 11/23/18 05:35 Potassium 3.7 mmol/L (3.5-5.1) 11/23/18 05:35 BUN 8 mg/dL (7-18) 11/23/18 05:35 Creatinine 0.93 mg/dL (0.55-1.3) 11/23/18 05:35 Glucose 100 mg/dL (74-106) 11/23/18 05:35 Magnesium 2.2 mg/dL (1.8-2.4) 11/23/18 05:35 Total Bilirubin 0.5 mg/dL (0.2-1.0) 11/21/18 18:50 AST 40 U/L (15-37) H 11/21/18 18:50 ALT 57 U/L (12-78) 11/21/18 18:50 Alkaline Phosphatase 199 U/L (45-117) H 11/21/18 18:50 Home Medications: Amlodipine [Norvasc*] 1 tab PO DAILY 11/21/18 Apixaban [Eliquis] 1 tab PO BID 11/21/18 Atorvastatin Calcium [Lipitor] 1 tab PO DAILY 11/21/18 Clopidogrel Bisulfate [Plavix] 1 tab PO DAILY 11/21/18 Losartan Potassium 50 mg PO DAILY 11/21/18 Omeprazole 1 tab PO DAILY 11/21/18 Sotalol HCl [Sotalol] 60 mg PO BID 11/21/18 Colestipol HCl [Colestid] 1 gm PO BID #60 tablet 11/23/18 New Medications: Colestipol HCl [Colestid] 1 gm PO BID #60 tablet
[2018-11-26 20:17] LABS: Immunoglobulin A 155 mg/dL (20-320); Immunoglobulin G 1593 mg/dL (600-1540); Immunoglobulin M 50 mg/dL (50-300)
== END 2018-11-23 16:04 | disposition home or self-care (01) | DRG 391 ==
LOC: 4TH 17:37
PROVIDERS: ADMIT Internal Medicine; ATTEND Internal Medicine
PROC: 0DB68ZX Excision of Stomach, Via Natural or Artificial Opening Endoscopic, Diagnostic (ICD-10-PCS; 2018-11-22)
PROC: 0DB58ZX Excision of Esophagus, Via Natural or Artificial Opening Endoscopic, Diagnostic (ICD-10-PCS; principal; 2018-11-22 12:45)
DX: K52.82 Eosinophilic colitis (principal); K83.1 Obstruction of bile duct; D72.1 Eosinophilia; K29.70 Gastritis, unspecified, without bleeding; I25.10 Atherosclerotic heart disease of native coronary artery without angina pectoris; K25.9 Gastric ulcer, unspecified as acute or chronic, without hemorrhage or perforation; J44.9 Chronic obstructive pulmonary disease, unspecified; I10 Essential (primary) hypertension; E78.5 Hyperlipidemia, unspecified; Z95.1 Presence of aortocoronary bypass graft; Z96.652 Presence of left artificial knee joint; Z87.891 Personal history of nicotine dependence
CPT/HCPCS: 36415; 71046; 71250; 74176; 74181; 80048; 80076; 81003; 81015; 82306; 82607; 82784; 82785; 82962; 82977; 83735; 83880; 83970; 84443; 85025; 85379; 86038; 86334; 87040; 87045; 87046; 87177; 87209; 87493; 88305; 88312; 94640; C9113; J1650; J2543; J2704

== ENCOUNTER 2018-12-31 07:25 | Day surgery (SDC) | payer OTHER ==
[2018-12-31] MEDS: CEFOXITIN/SWI 1gm 1 GM/10 ML SYR ONE ×2 (07:30→08:30)
[2018-12-31] MEDS ORDERED: Ringers Lactate 1,000 ML IV ONE ×2 (07:48→09:24)
[2018-12-31] MEDS ORDERED: LIDOCAINE 2% MPF 5 ML VIAL ONE ×2 (07:53→08:01)
[2018-12-31] MEDS ORDERED: FENTANYL CITR 100 MCG/2 ML ONE ×2 (07:53→08:01)
[2018-12-31] MEDS ORDERED: ROCURONIUM 50 MG/5 ML VIAL IV ONE ×2 (07:53→08:01)
[2018-12-31] MEDS ORDERED: MIDAZOLAM HCL 2 MG/2 ML INJ ONE ×2 (07:53→08:01)
[2018-12-31] MEDS ORDERED: PROPOFOL 200 MG/20 ML VIAL IV ONE ×2 (07:53→08:00)
[2018-12-31] MEDS ORDERED: ONDANSETRON 4 MG/2 ML VIAL ONE ×2 (07:54→08:01)
[2018-12-31] MEDS ORDERED: dexAMETHasone 10 MG/ML VIAL ONE ×2 (08:02→08:57)
[2018-12-31] MEDS ORDERED: EPHEDRINE SULF 50 MG/ML VIAL ONE (09:07)
[2018-12-31] MEDS ORDERED: NS 0.9% VIAL 20 ML ONE (09:07)
[2018-12-31] MEDS ORDERED: GLYCOPYRROLATE 0.2 MG/ML SYR ONE ×2 (09:21→09:27)
[2018-12-31] MEDS ORDERED: NEOSTIGMINE 1 MG/ML -10 ML VIAL ONE (09:28)
--- NOTE | 2018-12-31 09:29 | P.BOP ---
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
[2018-12-31] MEDS ORDERED: TRAMADOL 37.5mg/APAP 325mg PER TAB ONE (10:39)
[2018-12-31 11:22] VITALS: BP 133/59; TEMP 97.6; O2SAT 99
--- NOTE | 2018-12-31 12:24 | DS ---
Diagnosis: Tender left inguinal hernia. Procedure: Laparoscopic repair of tender left inguinal hernia with mesh. Disposition: Home. Activity: As tolerated. No heavy lifting. Followup: Follow up in my office in 1 week. Call for appointment [phone]. Keep area dry for 48 ho urs, then may shower. Keep Steri-Strips intact. For medication include Ultracet q.4 hours p.r.n. pa in. BORIS/SUMAN Voice ID: [id number] Report ID: [id number]
--- NOTE | 2018-12-31 12:24 | OP ---
Date of Procedure: 12/31/2018 Surgeon: Reggie Ruiz MD Jeep Driver: VIMAL Kilpatrick. Preoperative Diagnosis: Tender left inguinal hernia. Postoperative Diagnosis: Tender left inguinal hernia. Procedure: Laparoscopic repair of tender left inguinal hernia with mesh. Specimen: None. Findings: Left inguinal hernia. Anesthesia: General plus local. Implant: 3D mesh, left side medium. Indications: This is the case of a male, who came to us with a tender left inguinal hernia. Benefit s and risks of repair with mesh fully explained to the patient, which included but not limited to inf ection, bleeding, damage to adjacent structures, anesthesia complication, chronic pain, chronic numbn ess, MO, even . He also understands this may not relieve his symptoms. He might need more than one surgical intervention. He understood, signed a consent. Patient was advised about the use of m esh. Pros and cons of mesh placement was explained to the patient. All the questions were answered to his satisfaction. He did allow me to use mesh. Description Of Procedure: Patient was brought to the operating room, placed in supine position. Ane sthesia was done without complication. Abdominal area was prepped and draped in a sterile fashion. Left inguinal and abdominal area were prepped and draped in a sterile fashion. Local anesthesia was applied followed by a sharp incision of the skin in the infraumbilical area. Incision was carried do wn to fascia, which was opened under direct vision. This fascia was the anterior rectus sheath. Ant erior rectus sheath was opened, the muscle retracted laterally to expose the posterior rectus sheath. A balloon device was placed over the area, directed it toward the pubic symphysis. Camera was plac ed in that area. The balloon was inflated. This was to create the preperitoneal space region. Once we created the space, the camera and the balloon were removed, then the insufflation was done under direct visualization. The preperitoneal space was further developed by exposing the inferior epigast david vessels. Before that, we placed a 5 mm trocar under direct visualization on the area just about the symphysis pubis and another one midway between the first and the second one. Once again, the pre peritoneal space was further developed by exposing the inferior epigastric vessels and keeping them a nterior to the dissection. Carlos ligament was dissected laterally to the junction with the iliac ve ins. Dissection continued inferiorly to the iliopubic tract, avoiding damage to the femoral branch o f the genitofemoral nerve, and lateral femoral cutaneous nerve. The cord structures were carefully s keletonized. The hernia sac was identified and retracted away from the spermatic cord into the perit aiken space. At that moment, I placed a place a 3D mesh, medium size, and aligned with the structure in situ to cover the direct and indirect spaces. The mesh was secured in place with Sorbafix latera l and superior to the iliopubic tract and inferomedial to the Carlos ligament. After securing comple te hemostasis and applying some local anesthetic over the area, mesh looked intact. The hernia sac i s still retracted in the preperitoneal space. We deflated the area under direct visualization. Troc ars were removed. Once we deflated the area, we proceeded to close the anterior rectus sheath with # 1 Vicryl, irrigated subcutaneous tissue, closed that with 3-0 chromic and the skin in a subcuticular fashion with 3-0 chromic and Steri-Strips on top. Sponge count and instrument counts were correct. The patient tolerated the procedure well. The patient was sent to recovery in stable condition. BORIS/SUMAN Voice ID: [id number] Report ID: [id number]
== END 2018-12-31 12:00 | disposition home or self-care (01) ==
LOC: OR 07:25
PROVIDERS: ATTEND Surgery
PROC: 0YU64JZ Supplement Left Inguinal Region with Synthetic Substitute, Percutaneous Endoscopic Approach (ICD-10-PCS; principal; 2018-12-31 08:30)
DX: K40.90 Unilateral inguinal hernia, without obstruction or gangrene, not specified as recurrent (principal); I10 Essential (primary) hypertension; I25.10 Atherosclerotic heart disease of native coronary artery without angina pectoris; I48.91 Unspecified atrial fibrillation; J44.9 Chronic obstructive pulmonary disease, unspecified; K21.9 Gastro-esophageal reflux disease without esophagitis; E78.00 Pure hypercholesterolemia, unspecified; E78.5 Hyperlipidemia, unspecified; I25.2 Old myocardial infarction; Z88.6 Allergy status to analgesic agent; Z91.041 Radiographic dye allergy status; Z86.73 Personal history of transient ischemic attack (TIA), and cerebral infarction without residual deficits; Z95.1 Presence of aortocoronary bypass graft; Z82.49 Family history of ischemic heart disease and other diseases of the circulatory system
CPT/HCPCS: 49650; J2704; J2710; J2250; J3010; J1100; J7120 ×2; J2405

== ENCOUNTER 2020-12-22 21:54 | Emergency (ER) | payer OTHER ==
[2020-12-23] MEDS ORDERED: HYDROMORPHONE HCL 1 MG/ML INJ ONE (00:39)
[2020-12-23] MEDS ORDERED: ONDANSETRON 4 MG/2 ML VIAL ONE (00:39)
[2020-12-23] MEDS ORDERED: NA CHLORIDE 0.9% 500 ML ONE (00:40)
[2020-12-23 00:46] LABS: Absolute Lymphocytes (CBC) 0.7 K/uL (0.7-4.9); Basophils % 0.1 % (0-1.3); Hematocrit 38.4 % (39.6-49.0); Lymphocytes % 8.2 % (15.3-44.8); MPV 8.9 fL (7.6-11.3); RBC Red Blood Cell Count 4.28 M/uL (4.33-5.43)
[2020-12-23 00:56] LABS: Albumin 3.8 g/dL (3.4-5.0); Bilirubin Direct 0.2 mg/dL (0-0.2); Bilirubin Total 0.6 mg/dL (0.2-1.0); Protein, Total 7.9 g/dL (6.4-8.2)
--- NOTE | 2020-12-23 02:37 | EDPHYS ---
Physician Documentation [facility] Name: Kuldeep Ramsey Age: 80 yrs Sex: Male : 1940 Arrival Date: 12/22/2020 Time: 21:58 Bed 10 Private MD: ED Physician Deniz Bruce HPI: 12/23 00:17 This 80 yrs old Male presents to ER via Ambulatory with complaints of Fall ma2 Injury, RIB PAIN, Arm Pain, Breathing Difficulty. 00:17 Details of fall: The patient fell from an upright position. Onset: The symptoms/episode ma2 began/occurred suddenly, 1 day(s) ago. Associated injuries: The patient sustained Right flank pain, status post fall, tripped. Severity of symptoms: in the emergency department the symptoms have improved. Historical: - Allergies: 12/22 22:44 Morphine; wg 22:44 Iodinated Contrast Media - IV Dye; wg 22:44 Seroquel; wg 22:44 Geodon; wg 22:44 Codeine; wg - Home Meds: 22:44 Lipitor Oral [Active]; magnesium oxide Oral [Active]; sotalol Oral [Active]; wg 22:46 omeprazole Oral [Active]; amlodipine oral [Active]; Sotalol Oral [Active]; wg - PMHx: 22:44 Hypertension; Myocardial infarction; wg - Immunization history:: Adult Immunizations up to date. - Social history:: Patient/guardian denies using alcohol, street drugs, The patient lives with family, Smoking status: Patient denies any tobacco usage or history of. - Family history:: not pertinent. ROS: 12/23 00:17 Constitutional: Negative for fever, chills, and weight loss. ma2 All other systems are negative. Exam: 00:17 Constitutional: This is a well developed, well nourished patient who is awake, alert, ma2 and in no acute distress. Head/Face: Normocephalic, atraumatic. Eyes: Pupils equal round and reactive to light, extra-ocular motions intact. Lids and lashes normal. Conjunctiva and sclera are non-icteric and not injected. Cornea within normal limits. Periorbital areas with no swelling, redness, or edema. ENT: Nares patent. No nasal discharge, no septal abnormalities noted. Tympanic membranes are normal and external auditory canals are clear. Oropharynx with no redness, swelling, or masses, exudates, or evidence of obstruction, uvula midline. Mucous membranes moist. Neck: Trachea midline, no thyromegaly or masses palpated, and no cervical lymphadenopathy. Supple, full range of motion without nuchal rigidity, or vertebral point tenderness. No Meningismus. Chest/axilla: Normal chest wall appearance and motion. Nontender with no deformity. No lesions are appreciated. Cardiovascular: Regular rate and rhythm with a normal S1 and S2. No gallops, murmurs, or rubs. Normal PMI, no JVD. No pulse deficits. Respiratory: Lungs have equal breath sounds bilaterally, clear to auscultation and percussion. No rales, rhonchi or wheezes noted. No increased work of breathing, no retractions or nasal flaring. Abdomen/GI: right ruq abd pain and right flank ttp. otherwise Soft, non-tender, with normal bowel sounds. No distension or tympany. No guarding or rebound. No evidence of tenderness otherwhere else Back: No spinal tenderness. No costovertebral tenderness. Full range of motion. Skin: Warm, dry with normal turgor. Normal color with no rashes, no lesions, and no evidence of cellulitis. MS/ Extremity: Pulses equal, no cyanosis. Neurovascular intact. Full, normal range of motion. Neuro: Awake and alert, GCS 15, oriented to person, place, time, and situation. Cranial nerves II-XII grossly intact. Motor strength 5/5 in all extremities. Sensory grossly intact. Cerebellar exam normal. Normal gait. Vital Signs: 12/22 22:37 BP 144 / 91; Pulse 78; Resp 18; Temp 98.7; Pulse Ox 100% on R/A; Weight 83.46 kg; wg Height 5 ft. 9 in. (175.26 cm); Pain 9/10; 12/23 02:00 BP 138 / 88; Pulse 76; Resp 18; Pulse Ox 99% on R/A; lh3 12/22 22:37 Body Mass Index 27.17 (83.46 kg, 175.26 cm) [place] Coma Score: 12/22 22:37 Eye Response: spontaneous(4). Verbal Response: oriented(5). Motor Response: obeys commands(6). Total: 15. Trauma Score (Adult): 22:37 Eye Response: spontaneous(1); Verbal Response: oriented(1); Motor Response: obeys wg commands(2); Systolic BP: > 89 mm Hg(4); Respiratory Rate: 10 to 29 per min(4); Nuno Score: 15; Trauma Score: 12 MDM: 12/23 00:11 Patient medically screened. [facility] 00:17 Differential diagnosis: contusion, fracture, sprain, strain. [facility] 02:34 Data reviewed: vital signs, nurses notes. Counseling: I had a detailed discussion with ma the patient and/or guardian regarding: the historical points, exam findings, and any diagnostic results supporting the discharge/admit diagnosis, the presence of at least one elevated blood pressure reading (>120/80) during this emergency department visit, the need for outpatient follow up. Response to treatment: the patient's symptoms have markedly improved after treatment. ED course: Has a right flank pain he requires Dilaudid x2, I recommended admission for pain control given that he required Dilaudid, and observation. However patient would like to go home he will call his PCP Dr. Smith tomorrow morning. He states that he will return to ER if his pain recurrent. He understand my recommendation and would like to be discharged despite my recommendation of admission. 12/23 00:11 Order name: Basic Metabolic Panel; Complete Time: 02:07 ks2 12/23 00:11 Order name: CBC with Diff; Complete Time: 02:07 ks2 12/23 00:11 Order name: Hepatic Function; Complete Time: 02:07 ks2 12/23 00:11 Order name: Lipase; Complete Time: 02:07 ks2 12/23 00:11 Order name: IV Saline Lock; Complete Time: 00:30 ks2 12/23 00:11 Order name: Labs collected and sent; Complete Time: 00:30 ks2 12/23 01:06 Order name: Chest Abd Pelvis Wo Con EDMS Administered Medications: 00:29 Drug: Dilaudid (HYDROmorphone) 1 mg Route: IVP; Site: right forearm; lh3 02:00 Follow up: Response: No adverse reaction; Pain is decreased lh3 00:30 Drug: Zofran (Ondansetron) 4 mg Route: IVP; Site: right forearm; lh3 03:09 Follow up: Response: No adverse reaction [facility] 00:30 Drug: NS 0.9% 500 ml Route: IV; Rate: bolus; Site: right forearm; [facility] 03:09 Follow up: IV Status: Completed infusion; IV Intake: 500ml 3 Disposition Summary: 12/23/20 02:36 Discharge Ordered Location: Home ma2 Condition: Stable ma2 Diagnosis - Other abdominal pain - abd right flank ma2 Followup: ma2 - With: Private Physician - When: Tomorrow - Reason: Continuance of care Discharge Instructions: - Discharge Summary Sheet ma2 - Muscle Pain, Adult ma2 Forms: - Medication Reconciliation Form ma2 - Thank You Letter ma2 - Antibiotic Education ma2 - Prescription Opioid Use ks2 Prescriptions: - Diclofenac Sodium 75 mg Oral Tablet Sustained Release - take 1 tablet by ORAL route 2 times per day; 30 tablet; Refills: 0, Product ma2 Selection Permitted Signatures: Dispatcher [employer] EDMS Deniz Bruce MD MD ks2 Taylor Pereira RN RN [facility] Yasir Dubois RN Corrections: (The following items were deleted from the chart) 00:15 00:11 Abdomen Pelvis W Con+CT.RAD.BRZ ordered. EDMS EDMS 00:16 00:12 Thorax W/ Con+CT.RAD.BRZ ordered. EDMS EDMS 01:06 00:15 Chest Abdomen Pelvis W Cont ordered. EDMS EDMS
--- NOTE | 2020-12-23 02:37 | ER ---
Nurse's Notes [facility] Name: Kuldeep Ramsey Age: 80 yrs Sex: Male : 1940 Arrival Date: 12/22/2020 Time: 21:58 Bed 10 Private MD: Diagnosis: Other abdominal pain-abd right flank Presentation: 12/22 22:37 Chief complaint: Patient states: Pt states he fell Monday after tripping on a hose. wg Pt states he fell onto his right side onto concrete. Pt denies hitting his head, denies LOC and states he has had right sided flank/rib pain that isn't improving. 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 Pt does not have his gall bladder. Pt denies CP, SOB, Abd pain, N/V/D. Pt not on blood thinners and no obvious sign of internal bleeding. Care prior to arrival: None. Mechanism of Injury: Fall from standing position. 22:37 Acuity: JEREMÍAS 3 wg 22:37 Method Of Arrival: Ambulatory Trauma Activation: Not Applicable Physician: ED Physician; Name: ; Notified At: ; Arrived At: Physician: General Surgeon; Name: ; Notified At: ; Arrived At: Physician: Radiology; Name: ; Notified At: ; Arrived At: Physician: Respiratory; Name: ; Notified At: ; Arrived At: Physician: Lab; Name: ; Notified At: ; Arrived At: Historical: - Allergies: 22:44 Morphine; wg 22:44 Iodinated Contrast Media - IV Dye; wg 22:44 Seroquel; wg 22:44 Geodon; wg 22:44 Codeine; wg - Home Meds: 22:44 Lipitor Oral [Active]; magnesium oxide Oral [Active]; sotalol Oral [Active]; wg 22:46 omeprazole Oral [Active]; amlodipine oral [Active]; Sotalol Oral [Active]; wg - PMHx: 22:44 Hypertension; Myocardial infarction; wg - Immunization history:: Adult Immunizations up to date. - Social history:: Patient/guardian denies using alcohol, street drugs, The patient lives with family, Smoking status: Patient denies any tobacco usage or history of. - Family history:: not pertinent. Screenin:37 Abuse screen: Denies threats or abuse. Denies injuries from another. wg 12/23 00:09 Nutritional screening: No deficits noted. Tuberculosis screening: No symptoms or risk lh3 factors identified. Fall Risk None identified. 00:09 Fall Risk Fall in past 12 months (25 points). lh3 Primary Survey: 12/22 22:37 NO uncontrolled hemorrhage observed. A: The patient is alert. Airway: patent. wg Breathing/Chest: Respiratory pattern: regular, Respiratory effort: spontaneous, unlabored, Breath sounds: clear. Circulation: Pulses: palpable right radial artery, right posterior tibial artery, left radial artery and left posterior tibial artery. Disability Alert. Reassessment Airway. 12/23 03:10 Exposure/Environment: A warming method has been applied: A warm blanket has been lh3 provided to the patient. Reassessment Breathing/Chest Respiratory pattern. Reassessment Circulation Heart rhythm Sinus rhythm. Assessment: 12/22 22:37 General: Appears uncomfortable, well groomed, well developed, Behavior is calm, wg cooperative, appropriate for age. Pain: Complains of pain in Right flank/Ribs Pain currently is 9 out of 10 on a pain scale. Quality of pain is described as sharp, shooting. 12/23 00:09 Musculoskeletal: Reports pain in anterior aspect of right lateral abdomen Pain is 10 lh3 out of 10 on a pain scale. Vital Signs: 12/22 22:37 BP 144 / 91; Pulse 78; Resp 18; Temp 98.7; Pulse Ox 100% on R/A; Weight 83.46 kg; wg Height 5 ft. 9 in. (175.26 cm); Pain 9/10; 12/23 02:00 BP 138 / 88; Pulse 76; Resp 18; Pulse Ox 99% on R/A; lh3 12/22 22:37 Body Mass Index 27.17 (83.46 kg, 175.26 cm) wg [place] Coma Score: 12/22 22:37 Eye Response: spontaneous(4). Verbal Response: oriented(5). Motor Response: obeys commands(6). Total: 15. Trauma Score (Adult): 22:37 Eye Response: spontaneous(1); Verbal Response: oriented(1); Motor Response: obeys commands(2); Systolic BP: > 89 mm Hg(4); Respiratory Rate: 10 to 29 per min(4); Nuno Score: 15; Trauma Score: 12 ED Course: 21:58 Patient arrived in ED. cf2 22:37 Patient has correct armband on for positive identification. Adult w/ patient. wg 22:37 Patient maintains SpO2 saturation greater than 95% on room air. wg 22:41 Triage completed. wg 23:35 Deniz Bruce MD is Attending Physician. ma2 12/23 00:02 Taylor Pereira, RN is Primary Nurse. lh3 00:09 Pulse ox on. NIBP on. Door closed. Noise minimized. Visitors limited. Lights dimmed. lh3 Verbal reassurance given. 00:15 Inserted saline lock: 18 gauge in right forearm, using aseptic technique. lh3 00:30 Basic Metabolic Panel Sent. lh3 00:30 CBC with Diff Sent. lh3 00:30 Hepatic Function Sent. lh3 00:30 Lipase Sent. lh3 01:27 Chest Abd Pelvis Wo Con In Process Unspecified. EDMS 02:00 IV discontinued, intact, bleeding controlled, No redness/swelling at site. Pressure lh3 dressing applied. 03:08 No provider procedures requiring assistance completed. lh3 Administered Medications: 00:29 Drug: Dilaudid (HYDROmorphone) 1 mg Route: IVP; Site: right forearm; 3 02:00 Follow up: Response: No adverse reaction; Pain is decreased lh3 00:30 Drug: Zofran (Ondansetron) 4 mg Route: IVP; Site: right forearm; 3 03:09 Follow up: Response: No adverse reaction lh3 00:30 Drug: NS 0.9% 500 ml Route: IV; Rate: bolus; Site: right forearm; 3 03:09 Follow up: IV Status: Completed infusion; IV Intake: 500ml lh3 Intake: 03:09 IV: 500ml; Total: 500ml. 3 Outcome: 02:36 Discharge ordered by . ma2 03:10 Discharged to home via wheelchair, with family. lh3 03:10 Condition: good 03:10 Discharge instructions given to patient, family, Instructed on discharge instructions, follow up and referral plans. medication usage, Demonstrated understanding of instructions, follow-up care, medications, Prescriptions given X 03:12 Patient left the ED. 3 Signatures: Dispatcher [employer] EDMS Deniz Bruce MD MD ca2 Pari Pinzon cf2 Taylor Pereira, RN RN lh3 Yasir Dubois, RN wg
[2020-12-23 03:18] VITALS: TEMP 98.7
[2020-12-23 03:19] VITALS: BP 138/88; O2SAT 99
--- NOTE | 2020-12-23 11:43 | RAD REPORT ---
EXAM DESCRIPTION: CT - Chest Abd Pelvis Wo Con - 12/23/2020 6:43 am CLINICAL HISTORY: Ruq, right flank; Abd pain TECHNIQUE: Axial computed tomography images of the chest, abdomen and pelvis without intravenous con trast. Sagittal and coronal reformatted images were created and reviewed. This CT exam was perfor med using one or more of the following dose reduction techniques: automated exposure control, adjus tment of the mA and/or kV according to patient size, and/or use of iterative reconstruction technique . COMPARISON: 11/21/2018 FINDINGS: CHEST: Lungs: Mild peripheral fibrotic changes most pronounced within the left upper lobe with adjacent br onchiectasis and pleural parenchymal scar. Dependent bibasilar subsegmental atelectasis/pleural paren chymal scar. Pleural space: Trace right pleural fluid. No pneumothorax. Heart: The heart is mildly to moderately enlarged, mildly progressed. Coronary artery calcification . Prior CABG. No significant pericardial effusion. Mediastinum: Small hiatal hernia. ABDOMEN: Liver: The liver is enlarged. Right anterior hepatic cyst measuring 1.8 cm (previously 1.6 cm). 0.8 cm left hepatic hypodensity, similar to the prior and which cannot be fully characterized. Gallbladder and bile ducts: Prior cholecystectomy. No ductal dilation. Pancreas: Unremarkable. No ductal dilation. Spleen: Unremarkable. No splenomegaly. Adrenals: Unremarkable. No mass. Kidneys and ureters: Lobulated right renal contour with areas of cortical thinning/scar. 3 cm cyst at the posterior upper pole of the left kidney (previously 2.6 cm). 0.9 cm exophytic lesion at the lo wer pole of the left kidney, similar to the prior and which cannot be fully characterized. No follow- up imaging is necessary. No calculi. No hydronephrosis. Stomach and bowel: Moderate stool within the proximal large bowel. No obstruction. No mucosal thick ening. PELVIS: Appendix: Normal caliber appendix. No findings to suggest acute appendicitis. Bladder: The urinary bladder is distended. No stones. Reproductive: The prostate is mildly enlarged. CHEST, ABDOMEN and PELVIS: Intraperitoneal space: Unremarkable. No significant fluid collection. No free air. Bones/joints: Prior median sternotomy. Multilevel spondylosis. Remote left anterior 3rd through 6th rib fractures again demonstrated. Prior bilateral posterior fusion, right hemilaminectomy and interp osition graft placement at L3-L5. 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 No dislocation. Soft tissues: Small bilateral fat-containing inguinal hernias. Vasculature: Moderate atherosclerotic disease. The ascending aorta measures 4 cm in maximum diamete r. The distal abdominal aorta measures 3 cm in maximum diameter, similar to the prior. Right renal ar santi aneurysm measuring 3 cm in maximum diameter (previously 2.8 cm). Bilateral common iliac artery a neurysms measuring 2.5 cm on the right, similar to the prior. Lymph nodes: Bilateral axillary lymphadenopathy measuring up to 2 cm in short axis, similar to the prior. IMPRESSION: 1. Peripheral fibrotic changes and scattered areas of subsegmental atelectasis/pleural parenchymal scar. Trace right pleural effusion. 2. No renal, ureteral or bladder calculi. No evidence for renal obstruction. 3. Moderate stool within the proximal large bowel. No obstruction. 4. Stable 3 cm abdominal aortic aneurysm. Recommend follow-up every 3 years. Reference: J Am Sabino R adiol 2013;10:789-794. 5. Other findings as above. Electronically signed by: Yoshi Fischer MD 12/23/2020 2:00 AM CDT Due to temporary technical issues with the PACS/Fluency reporting system, reports are being signed by the in house radiologist without review as a courtesy to ensure prompt reporting. The interpreting r adiologist is fully responsible for the content of the report.
== END 2020-12-23 03:12 | disposition home or self-care (01) ==
LOC: ER 21:54
DX: R10.9 Unspecified abdominal pain (principal); W01.0XXA Fall on same level from slipping, tripping and stumbling without subsequent striking against object, initial encounter; I10 Essential (primary) hypertension; Z88.5 Allergy status to narcotic agent; Z88.8 Allergy status to other drugs, medicaments and biological substances; Z91.041 Radiographic dye allergy status
CPT/HCPCS: 96361; 85025; 80048; 36415; 80076; 83690; 71250; 74176; 96375; 96374; 99284; J1170; J7040; J2405

== ENCOUNTER 2021-02-24 14:27 | Emergency (ER) | payer OTHER ==
--- OUTSIDE RECORDS SUMMARY | 2021-02-24 15:13 | XMS REPORT | Continuity of Care Document ---
:1940 Author Organization [facility] t Address [address] [place] [address] Care Team Providers Name Role Phone JUAN MANUEL Attending Clinician Unavailable Juan Manuel BABCOCK Attending Clinician BONY SMITH Attending Clinician Unavailable JUAN MANUEL Admitting Clinician Unavailable BONY SMITH Admitting Clinician Unavailable Payers Payer Name Policy Type Policy Number Effective Date Expiration Date S ource MEDICARE A B [id number] 2005 00:00:00 Problems Condition Condition Condition Status Onset Resolution Last Treating Co mments Source Name Details Category Date Date Treatment Clinician Date Hx of Hx of Disease Active [facility] exercise exercise 04-17 [facility] stress stress 00:00: of test test 00 Medicin e Renal Renal Disease Active [facility] 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[place] aneurysm aneurysm 00:00: of (HCCode) (HCCode) 00 Medici n e Allergies, Adverse Reactions, Alerts Allergy Allergy Status Severity Reaction(s) Onset Inactive Treating Comm ents Source Name Type Date Date Clinician Codeine Propensi Active [facility] ty to 04-17 College adverse 00:00: of reaction 00 Medicin s to e drug Kdc:[place] Propensi Active [facility] ow ty to 04-17 College Dye+Zipr adverse 00:00: of asidone+ reaction 00 Medici n Brillian s to e t Blue drug [facility] Iodine Propensi Active [facility] ty to 04-17 College adverse 00:00: of reaction 00 Medicin s to e drug Opioid Propensi Active [facility] Analgesi ty to 04-17 cs adverse 00:00: of reaction 00 Medicin s to e drug CITRUS Allergy Active 2018-[address] [facility] Medical VES 00 Center CODEINE Allergy Active 2019[facility] IODINATE Allergy Active 2018- [facility] CONTRAST 00:00: Medical MEDIA 00 Center KIWI Allergy Active 2019- [facility] (ACTINID [facility] [place] 00:00: Medical CHINENSI 00 Center S) MORPHINE Allergy Active 2018- [facility] QUETIAPI Allergy Active 2018- [facility] NE 6[facility] - FUMARATE 00:00: Medical 00 Center STRAWBER Allergy Active Hives 2018- [facility] RY 6-[facility] ZIPRASID Allergy Active 2018- [facility] ONE 6[facility] MESYLATE 00:[facility]: Medical 00 Center Social History Social Habit Start Date Stop Date Quantity Comments Source Sex Assigned At [facility] Smoking Status Start Date Stop Date Source Never smoker [facility] Medications Ordered Filled Start Stop Current Ordering Indication Dosage Frequency Signature Comments Components Source Medication Medication Date Date Medication? Clinician (SIG) Name Name Mirabegron 2020-0 Yes 25mg Take 25 mg [facility] 04-17 by mouth. College (MYRBETRIQ) 17:28: of 25 MG TB24 46 Medicin e atorvastati 0 Yes 80mg Take 80 mg [facility] n (LIPITOR) 04-17 by mouth Sabino ege 80 MG 17:28: daily. of tablet 46 Medicin e Calcium 0 Yes Take by [facility] Acetate-Mag 04-17 mouth. Colleg e nesium Carb 17:28: of 450-200 MG 46 Medicin TABS e fluticasone 2019-0 Yes 1{spray 1 [place] by [facility] (FLONASE) 04-17 } Nasal College 50 MCG/ACT 17:28: route. of nasal spray 46 Medicin e amlodipine Yes 10mg Take 10 mg [facility] (NORVASC) 11-21 by mouth. Colle ge 10 MG 00:00: of tablet 00 Medicin e losartan Yes AT BEDTIME [place] kimberli (COZAAR) 50 9 College MG tablet 00:00: of 00 Medicin e clopidogrel Yes 1{tbl} 1 Tab. [facility] (PLAVIX) 75 2-12 College MG Tablet 00:00: of 00 Medicin e Vital Signs Vital Name Observation Time Observation Value Comments Source Systolic blood 2019-04-17 17:28:00 158 mm[Hg] [facility] pressure Medicine Diastolic blood 2019-04-17 17:28:00 78 mm[Hg] [facility] Medicine Heart rate 2019-04-17 17:28:00 69 /min [facility] Body weight 2019-04-17 17:28:00 78.472 kg [facility] Procedures This patient has no known procedures. Plan of Care Planned Activity Planned Date Details Comments Source Future Scheduled Test TETANUS SHOT (ADULT) [facility] [code = TETANUS SHOT Medicin e (ADULT)] Future Scheduled Test MEDICARE AWV [facility] (Initial) [code = Medicine MEDICARE AWV (Initial)] Future Scheduled Test FALL SCREEN [code = [facility] FALL SCREEN] Medicine Future Scheduled Test PNEUMOVAX >=65 [facility] (PPSV23) [code = Medicine PNEUMOVAX >=65 (PPSV23)] Future Scheduled Test PREVNAR >= 65 (PCV13) [facility] [code = PREVNAR >= 65 Medici ne (PCV13)] Future Scheduled Test FLU VACCINE > 6 [facility] [code = FLU Medicine VACCINE > 6 MONTHS] Encounters Start End Encounter Admission Attending Care Care Encounter Source Date/Time Date/Time Type Type Clinicians Facility Department ID 2020-12-22 Inpatient EDNA BAILEY Surgery [id number] [facility] 15:37:42 [facility] 2019-08-15 2019-08-15 Outpatient [facility] [id number] [facility] 00:00:00 00:00:00 2019-08-13 2019-08-13 Outpatient [facility] [id number] 0-2 [facility] 00:00:00 00:00:00 [id number] 2019-06-17 2019-06-17 Outpatient [facility] [id number] 0-2 [facility] 00:00:00 00:00:00 [id number] 2019-04-17 2019-04-17 Office SHASHA Zambrano [id number] [facility] 11:16:47 14:53:18 Visit [facility] AMBULATOR [id number] College Y [id number] of [id number] [facility] 825 e Results Test Description Test Time Test Comments Results Result [facility] e Comments CT, CTA ABDOMEN 2019-03-15 Reason for Addendum BeginsREPORT 17:40:00 Exam:->aaa STATUS:A Addendum: Several small cysts are seen in the left lung base. No free intraperitoneal air. I otherwise agree with the previously described non vascular findings. End of addendum. Signed: Armando Proctor MDReport Verified Date/Time: 03/15/2019 17:40:34 Reading Location: [facility] Reading RoomAddendum EndsFINAL REPORT CT angiography of the abdominal aorta and pelvic arteries, 15 March 2019 INDICATION: This is a 78 year old male with diagnosis of abdominal aortic aneurysm presents for assessment. 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 Patient gave a history of contrast reaction and was premedicated with the appropriate medication. IV Benadryl was also given before contrast administration and patient tolerated the procedure well. TECHNIQUE: Spiral acquisition before and during intravenous contrast administration using a Elena multidetector CT scanner. Images were obtained before and during the dynamic passage of intravenous contrast material. Multi-planar 3-D volume-rendering reconstruction was performed using an independent workstation interactively by the interpreting physician as well as the 3-D specialist for optimal visualisation of the abdominal aorta, pelvic arteries, and its proximal branches. Please refer to the contrast sheet scanned in the [facility] system for the amount and route of contrast given. This exam was performed according to our departmental dose-optimisation programme, which includes automated exposure control, adjustment of the mA and/or kV according to patient size and/or use of iterative reconstruction technique. Dose modulation, iterative reconstruction, and/or weight based adjustment of the mA/kV was utilized to reduce the radiation dose to as low as reasonably achievable. FINDINGS: VASCULAR: The infrarenal abdominal aorta is remarkable for moderate circumferential noncalcific atherosclerosis, with associated calcification identified. In addition, there is also atherosclerotic ulceration identified in the posterior aspect of the infrarenal abdominal aorta, at image 144, representing a spectrum of underlying atherosclerosis. There is no evidence of acute aortic pathology, specifically, there is no dissection, intramural hematoma, or contained rupture. Quantitative dimensions of the abdominal aorta are as follows: 2.2 cm at the mesenteric segment; 2.4 cm at the renal segment: 2.2 cm at the infrarenal level and approximately 2.8 cm immediately aortic bifurcation. The coeliac axis is widely patent giving rise to the hepatic and splenic arteries. Nonobstructive calcification is seen along the course of the splenic artery. The SMA is widely patent proximally. However, there is circumferential calcification seen at the mid/distal segment. By multiplanar reformation, the calcification is nonobstructive in nature. Mild stenosis is seen at the takeoff of the YAMILA. Single left and right renal arteries are identified. The left renal artery is widely patent though some calcification is seen distally. A focus examination was performed through the right renal artery. The origin of the right renal arteries unremarkable. However, in the mid segment, aneurysmal dilation is identified and by multiplanar reformation measure 3.3 x 2.9 cm in diameter. Substantial intraluminal thrombus is identified though the renal artery at this level is patent however, it is nonobstructive. The right renal artery origin measure 13.2 x 11.2 mm in diameter. The length of the aneurysmal dilation is approximately 4.5 cm. Thereafter, the distal right renal artery returns to relatively normal calibre, and bifurcates into 2 branches. The more superior branch has moderate diffuse calcific and noncalcific atherosclerosis identified. The inferior branch could have a significant lesion identified proximally, and may explain the scarring of the lower pole of the right kidney. Dilation is identified throughout the left and the right common iliac artery. The length of the left common iliac artery is approximately 7 cm, and loss prevention representative dimension is approximately 2.2 x 2.2 cm. The length of the right common iliac artery is approximately 6.3 cm, and maximum diameter measures approximately 27.5 x 26.7 mm, with minimal intraluminal thrombus present. Please See snapshot for details. No stenosis identified the left and the right common unit arteries. Thereafter, the external the coeliac arteries, and the common femoral arteries and the visualised left and right SFA are patent with nonobstructive calcification identified. The left and the right external iliac artery measures at least 6 to 7 mm in diameter, bilaterally. NON-VASCULAR: The lung bases are unremarkable. Some dependent changes are seen. In the abdomen, the liver and spleen appears unremarkable. The liver edge is smooth. Small hypodensities are seen with no enhancement after contrast administration representing liver cysts. The adrenal glands are not enlarged. Patient is post cholecystectomy. The pancreas appears unremarkable. No acute renal pathology is seen and no hydronephrosis or perirenal fluid collection is identified. A renal cyst is identified the posterior aspect of the left kidney, at image 61, measures 2.7 cm in diameter. In the right kidney, cortical scarring is identified in the lower pole, that could represent reduction in flow to the lower branch of the right renal artery as described above. Bowel is not well assessed by CT angiography as enteric contrast is not given. No obvious bowel dilation is identified. Bilateral fat-containing inguinal hernia is noted. The prostate is prominent. The bladder is unremarkable. No free air free flow seen abdomen pelvis and no significant retroperitoneal adenopathy is identified. In the bony windows, no acute bony pathology is identified. Some degenerative changes is noted. Screws are identified at L3/L4/L5 level, , bilaterally. CONCLUSIONS: 1. Diffuse atherosclerosis identified abdominal aorta with no ectasia or aneurysmal dilation is seen. There is no evidence of acute aortic pathology, specifically, there is no dissection, intramural hematoma, or contained rupture. Quantitative dimension of the abdominal aorta are as noted. 2. Dilation is identified in the left and the right common iliac arteries as described above. The left common unit artery measure approximately 2.2 cm and the right common iliac artery measures approximately 2.8 cm 3. Details of the mesenteric and renal arteries as described above. Most importantly, dilation is identified in the mid right renal artery, with maximum diameter of 3.3 cm with substantial intraluminal thrombus that is nonobstructive. The length of the dilation is approximately 4.5 cm. At the distal right renal artery tapers in calibre and branches into 2 branches and the upper branch has more directed diffuse atherosclerosis identified and probable significant stenosis is seen in the origin of the lower branch, likely explaining the appearance of scarring in the lower pole of the right kidney. 4. Other findings as described above. 5. An addendum will be dictated regarding the non-vascular findings by the [employer] Radiologist. Signed: Bill Fountianeport Verified Date/Time: 03/15/2019 11:50:43 -CREATININE 2019-03-15 10:21:00 Test Item Value Reference Range Interpretation Comme [facility] POC-CREATININE (BEAKER) (test 0.9 mg/dL 0.6-1.3 TESTED AT [facility] 6720 code = 1859) [facility] [address] POC-EGFR (BEAKER) (test code = 82 mL/min/1.73M2 3480) TISSUE [id number] 17:04:00Surgical Pathology Report Case: [id number] Authorizing Provider: Danial Smith, Collected: 10/01/2018 0904 Ordering Location: [facility] Received: 10/01/2018 1008 PERIOPERATIVE SERVICES Pathologist: Zeferino Warner MD Specimen: Plaque, RIGHT CAROTID PLAQUE/ ENDARTERECTOMY ARTERY, RIGHT CAROTID, ENDARTERECTOMY:CALCIFIC ATHEROSCLEROTIC PLAQUE Signing Pathologist Direct Phone Line: [phone]. Right carotid plaque/endarterectomyThe specimen is received in formalin and consists of a portion of cylindrical calcified tissue measuring 4.5 x 0.9 x 0.9 cm. Farmer General sections are in one cassette for decalcification. CB/plPerformedPLATELET AGGREGATION: FUNCTION [id number] 14:42:00 Test Item Value Reference Range Interpretation Comments WEAK ADP 56 % 60-91 L RESULT(BEAKER) (test code = 2135) PLATELET FUNCTION 50-59% indicates mild SCREEN INTERP platelet dysfunction (BEAKER) (test code = 2173) [id number] Genevieve Lin MD ([facility]) (test code = (electronic signature) 2622) PLATELET COUNT AGG 159 K/CU MM 150-450 (BEAKER) (test code = 2656) Platelet Function Screen results may be falsely low with platelet counts<100,000/cu mm.for patients on clopidogrel in past two weeksPOTASSIUM- STAT [id number] 12:04:00 Test Item Value Reference Range Interpretation Comments POTASSIUM (BEAKER) (test code = 4.0 meq/L 3.6-5.5 379) GLUCOSE-STAT [id number] 12:04:00 Test Item Value Reference Range Interpretation Comments GLUCOSE RANDOM (BEAKER) (test code 139 mg/dL 70-110 H = 652) HGB/HCT (H&H) - STAT [id number] 12:04:00 Test Item Value Reference Range Interpretation Comments HEMOGLOBIN (GEOVANY) (test code = 10.5 g/dL 13.0-16.8 L 410) HEMATOCRIT (GEOVANY) (test code = 31.0 % 40.0-50.0 L 411) [id number] 06:25:00 Test Item Value Reference Range Interpretation Comments PROTIME (GEOVANY) (test code = 14.5 seconds 11.9-14.2 H 759) INR (GEOVANY) (test code = 370) 1.2 <=5.9 PARTIAL THROMBOPLASTIN TIME 48.4 seconds 22.5-36.0 H (GEOVANY) (test code = 760) Effective 08/15/2018: PT Reference Range ChangeNew: 11.9-14.2 Previous: 11.7- 14.7RECOMMENDED COUMADIN/WARFARIN INR THERAPY RANGESSTANDARD DOSE: 2.0-3.0 Includes: PROPHYLAXIS for venous thrombosis, systemic embolization; TREATMENT for venous thrombosis and/or pulmonary embolus.HIGH RISK: Target INR is2.5-3.5 for patients wiht mechanical heart valves.POCT-GLUCOSE [id number] 06:02:00 Test Item Value Reference Range Interpretation Comments POC-GLUCOSE METER 111 mg/dL 70-110 H TESTED AT [facility] 6720 ([facility]) (test code = [place] 1538) [address] [id number] 12:11:00 Test Item Value Reference Range Interpretation Comments PARTIAL THROMBOPLASTIN TIME 67.7 seconds 22.5-36.0 H (GEOVANY) (test code = 760) PROTHROMBIN [id number] 12:09:00 Test Item Value Reference Range Interpretation Comments PROTIME (GEOVANY) (test code = 15.3 seconds 11.9-14.2 H 759) INR (GEOVANY) (test code = 370) 1.3 <=5.9 Effective 08/15/2018: PT Reference Range ChangeNew: 11.9-14.2 Previous: 11.7- 14.7RECOMMENDED COUMADIN/WARFARIN INR THERAPY RANGESSTANDARD DOSE: 2.0-3.0 Includes: PROPHYLAXIS for venous thrombosis, systemic embolization; TREATMENT for venous thrombosis and/or pulmonary embolus.HIGH RISK: Target INR is2.5-3.5 for patients wiht mechanical heart valves.BASIC METABOLIC [id number] 12:09:00 Test Item Value Reference Range Interpretation Comments SODIUM (BEAKER) 138 meq/L 136-145 (test code = 381) POTASSIUM (BEAKER) 4.5 meq/L 3.5-5.1 (test code = 379) CHLORIDE (BEAKER) 106 meq/L 98-107 (test code = 382) CO2 (BEAKER) (test 25 meq/L 22-29 code = 355) BLOOD UREA NITROGEN 21 mg/dL 7-21 (BEAKER) (test code = 354) CREATININE (BEAKER) 0.87 mg/dL 0.57-1.25 (test code = 358) GLUCOSE RANDOM 95 mg/dL 70-105 (BEAKER) (test code = 652) CALCIUM (BEAKER) 9.4 mg/dL 8.4-10.2 (test code = 697) EGFR (BEAKER) (test 85 mL/min/1.73 ESTIMA MIMI GFR IS code = 1092) sq m NOT ACCURATE CREATININE CLEARANCE IN PREDICTING GLOMERULAR FILTRATION RATE . ESTIMATED GFR I S NOT APPLICABLE FOR DIALYSIS PATIEN TS. CBC W/PLT COUNT & AUTO [id number] 11:53:00 Test Item Value Reference Range Interpretation Comments WHITE BLOOD CELL COUNT (BEAKER) 4.7 K/ L 3.5-10.5 (test code = 775) RED BLOOD CELL COUNT (BEAKER) 3.82 M/ L 4.63-6.08 L (test code = 761) HEMOGLOBIN (BEAKER) (test code = 11.3 GM/DL 13.7-17.5 L 410) HEMATOCRIT (BEAKER) (test code = 35.8 % 40.1-51.0 L 411) MEAN CORPUSCULAR VOLUME (BEAKER) 93.7 fL 79.0-92.2 H (test code = 753) MEAN CORPUSCULAR HEMOGLOBIN 29.6 pg 25.7-32.2 (BEAKER) (test code = 751) MEAN CORPUSCULAR HEMOGLOBIN CONC 31.6 GM/DL 32.3-36.5 L (BEAKER) (test code = 752) RED CELL DISTRIBUTION WIDTH 14.3 % 11.6-14.4 (BEAKER) (test code = 412) PLATELET COUNT (BEAKER) (test 164 K/CU MM 150-450 code = 756) MEAN PLATELET VOLUME (BEAKER) 9.8 fL 9.4-12.4 (test code = 754) NUCLEATED RED BLOOD CELLS 0 /100 WBC 0-0 (BEAKER) (test code = 413) NEUTROPHILS RELATIVE PERCENT 60 % (BEAKER) (test code = 429) LYMPHOCYTES RELATIVE PERCENT 22 % (BEAKER) (test code = 430) MONOCYTES RELATIVE PERCENT 10 % (BEAKER) (test code = 431) EOSINOPHILS RELATIVE PERCENT 8 % (BEAKER) (test code = 432) BASOPHILS RELATIVE PERCENT 0 % (BEAKER) (test code = 437) NEUTROPHILS ABSOLUTE COUNT 2.81 K/ L 1.78-5.38 (BEAKER) (test code = 670) LYMPHOCYTES ABSOLUTE COUNT 1.03 K/ L 1.32-3.57 L (BEAKER) (test code = 414) MONOCYTES ABSOLUTE COUNT (BEAKER) 0.45 K/ L 0.30-0.82 (test code = 415) EOSINOPHILS ABSOLUTE COUNT 0.36 K/ L 0.04-0.54 (BEAKER) (test code = 416) BASOPHILS ABSOLUTE COUNT (BEAKER) 0.02 K/ L 0.01-0.08 (test code = 417) IMMATURE GRANULOCYTES-RELATIVE 0 % 0-1 PERCENT (BEAKER) (test code = 2801) TISSUE [id number] 14:34:00Surgical Pathology Report Case: [id number] Authorizing Provider: Danial Smith, Collected: 09/12/2018 0910 Ordering Location: [facility] Received: 09/12/2018 1105 PERIOPERATIVE SERVICES Pathologist: Zeferino Warner MD Specimen: Plaque, LEFT CAROTID ARTERY PLAQUE ARTERY, LEFT CAROTID, ENDARTERECTOMY:CALCIFIC ATHEROSCLEROTIC PLAQUE WITH INTRAPLAQUE HEMORRHAGE Signing Pathologist Direct Phone Line: [phone] signed by Zeferino Warner MD on 09/18/2018 at 2:34 [id number]; [id number] and postop diagnosis: left carotid stenosisLeft carotid artery plaqueReceived in saline labeled with the patient's name, accession number and "plaque" is a bifurcated, previously incised portion of yellow plaque measuring 3.2 x 1.0 x 0.5 cm. The specimen is serially sectioned to reveal focal areas of calcification measuring up to 0.3 cm in thickness. There are also focal areas of hemorrhage and necrosis. Farmer General sections are submitted in A1, following decalcification. CG/pl PerformedTSH/FREE T4 IF [id number] 05:37:00 Test Item Value Reference Range Interpretation Comments THYROID STIMULATING HORMONE 0.76 uIU/mL 0.35-4.94 (BEAKER) (test code = 772) TROPONIN [id number] 05:01:00 Test Item Value Reference Range Interpretation Comments TROPONIN I (BEAKER) (test code = 397) < ng/mL 0.00-0.03 Troponin I (TnI) levels [...] failure, acidosis, acute neurological disease, and persistent tachyarrhythmia.[id number] 04:53:00 Test Item Value Reference Range Interpretation Comments MAGNESIUM (BEAKER) (test code = 2.0 mg/dL 1.6-2.6 627) BASIC METABOLIC [id number] 04:53:00 Test Item Value Reference Range Interpretation Comments SODIUM (BEAKER) 138 meq/L 136-145 (test code = 381) POTASSIUM (BEAKER) 3.7 meq/L 3.5-5.1 (test code = 379) CHLORIDE (BEAKER) 107 meq/L 98-107 (test code = 382) CO2 (BEAKER) (test 26 meq/L 22-29 code = 355) BLOOD UREA NITROGEN 12 mg/dL 7-21 (BEAKER) (test code = 354) CREATININE (BEAKER) 0.80 mg/dL 0.57-1.25 (test code = 358) GLUCOSE RANDOM 112 mg/dL 70-105 H (BEAKER) (test code = 652) CALCIUM (BEAKER) 9.0 mg/dL 8.4-10.2 (test code = 697) EGFR (BEAKER) (test 93 mL/min/1.73 ESTIMA MIMI GFR IS code = 1092) sq m NOT ACCURATE CREATININE CLEARANCE IN PREDICTING GLOMERULAR FILTRATION RATE . ESTIMATED GFR I S NOT APPLICABLE FOR DIALYSIS PATIEN TS. PT/[id number] 04:53:00 Test Item Value Reference Range Interpretation Comments PROTIME (BEAKER) (test code = 13.8 seconds 11.9-14.2 759) INR (BEAKER) (test code = 370) 1.1 <=5.9 PARTIAL THROMBOPLASTIN TIME 44.8 seconds 22.5-36.0 H (BEAKER) (test code = 760) Effective 08/15/2018: PT Reference Range ChangeNew: 11.9-14.2 Previous: 11.7- 14.7RECOMMENDED COUMADIN/WARFARIN INR THERAPY RANGESSTANDARD DOSE: 2.0-3.0 Includes: PROPHYLAXIS for venous thrombosis, systemic embolization; TREATMENT for venous thrombosis and/or pulmonary embolus.HIGH RISK: Target INR is2.5-3.5 for patients wiht mechanical heart valves.CBC (HEMOGRAM ONLY)2018-09-14 04:22:00 Test Item Value Reference Range Interpretation Comments WHITE BLOOD CELL COUNT (BEAKER) 6.1 K/ L 3.5-10.5 (test code = 775) RED BLOOD CELL COUNT (BEAKER) 3.74 M/ L 4.63-6.08 L (test code = 761) HEMOGLOBIN (BEAKER) (test code = 11.1 GM/DL 13.7-17.5 L 410) HEMATOCRIT (BEAKER) (test code = 34.3 % 40.1-51.0 L 411) MEAN CORPUSCULAR VOLUME (BEAKER) 91.7 fL 79.0-92.2 (test code = 753) MEAN CORPUSCULAR HEMOGLOBIN 29.7 pg 25.7-32.2 (BEAKER) (test code = 751) MEAN CORPUSCULAR HEMOGLOBIN CONC 32.4 GM/DL 32.3-36.5 (BEAKER) (test code = 752) RED CELL DISTRIBUTION WIDTH 14.4 % 11.6-14.4 (BEAKER) (test code = 412) PLATELET COUNT (BEAKER) (test 115 K/CU MM 150-450 L code = 756) MEAN PLATELET VOLUME (BEAKER) 11.1 fL 9.4-12.4 (test code = 754) NUCLEATED RED BLOOD CELLS 0 /100 WBC 0-0 (BEAKER) (test code = 413) CT, BRAIN, WITHOUT [id number] 18:45:00FINAL REPORT CT, BRAIN, WITHOUT CONTRAST CLINICAL INDICATION: r/o stroke COMP ARISON: None TECHNIQUE: Noncontrast axial CT imaging of [...] MR examination is recommended for further characterization. Signed:Vin Doe MDReport Verified Date/Time: 09/13/2018 18:45:50 Reading Location: [address] Neuro Reading Room TROPONIN [id number] 16:04:00 Test Item Value Reference Range Interpretation Comments TROPONIN I (BEAKER) (test code = 397) < ng/mL 0.00-0.03 Troponin I (TnI) levels [...] acidosis, acute neurological disease, and persistent tachyarrhythmia.TROPONIN [id number] 10:03:00 Test Item Value Reference Range Interpretation Comments TROPONIN I (BEAKER) (test code = 397) < ng/mL 0.00-0.03 Troponin I (TnI) levels [...] ONLY)2018-09-13 06:53:00 Test Item Value Reference Range Interpretation Comments WHITE BLOOD CELL COUNT (BEAKER) 7.9 K/ L 3.5-10.5 (test code = 775) RED BLOOD CELL COUNT (BEAKER) 3.49 M/ L 4.63-6.08 L (test code = 761) HEMOGLOBIN (BEAKER) (test code = 10.4 GM/DL 13.7-17.5 L 410) HEMATOCRIT (BEAKER) (test code = 32.2 % 40.1-51.0 L 411) MEAN CORPUSCULAR VOLUME (BEAKER) 92.3 fL 79.0-92.2 H (test code = 753) MEAN CORPUSCULAR HEMOGLOBIN 29.8 pg 25.7-32.2 (BEAKER) (test code = 751) MEAN CORPUSCULAR HEMOGLOBIN CONC 32.3 GM/DL 32.3-36.5 (BEAKER) (test code = 752) RED CELL DISTRIBUTION WIDTH 14.2 % 11.6-14.4 (BEAKER) (test code = 412) PLATELET COUNT (BEAKER) (test 109 K/CU MM 150-450 L code = 756) MEAN PLATELET VOLUME (BEAKER) 11.2 fL 9.4-12.4 (test code = 754) NUCLEATED RED BLOOD CELLS 0 /100 WBC 0-0 (BEAKER) (test code = 413) [id number] 06:09:00 Test Item Value Reference Range Interpretation Comments MAGNESIUM (BEAKER) (test code = 1.7 mg/dL 1.6-2.6 627) BASIC METABOLIC [id number] 06:09:00 Test Item Value Reference Range Interpretation Comments SODIUM (BEAKER) 140 meq/L 136-145 (test code = 381) POTASSIUM (BEAKER) 3.9 meq/L 3.5-5.1 (test code = 379) CHLORIDE (BEAKER) 110 meq/L 98-107 H (test code = 382) CO2 (BEAKER) (test 25 meq/L 22-29 code = 355) BLOOD UREA NITROGEN 13 mg/dL 7-21 (BEAKER) (test code = 354) CREATININE (BEAKER) 0.81 mg/dL 0.57-1.25 (test code = 358) GLUCOSE RANDOM 109 mg/dL 70-105 H (BEAKER) (test code = 652) CALCIUM (BEAKER) 8.8 mg/dL 8.4-10.2 (test code = 697) EGFR (BEAKER) (test 92 mL/min/1.73 ESTIMA MIMI GFR IS code = 1092) sq m NOT ACCURATE CREATININE CLEARANCE IN PREDICTING GLOMERULAR FILTRATION RATE . ESTIMATED GFR I S NOT APPLICABLE FOR DIALYSIS PATIEN TS. TROPONIN [id number] 06:02:00 Test Item Value Reference Range Interpretation Comments TROPONIN I (BEAKER) (test code = 397) < ng/mL 0.00-0.03 Troponin I (TnI) levels [...] failure, acidosis, acute neurological disease, and persistent tachyarrhythmia.[id number] 05:45:00 Test Item Value Reference Range Interpretation Comments PROTIME (BEAKER) (test code = 14.4 seconds 11.9-14.2 H 759) INR (BEAKER) (test code = 370) 1.2 <=5.9 PARTIAL THROMBOPLASTIN TIME 50.1 seconds 22.5-36.0 H (BEAKER) (test code = 760) Effective 08/15/2018: PT Reference Range ChangeNew: 11.9-14.2 Previous: 11.7- 14.7RECOMMENDED COUMADIN/WARFARIN INR THERAPY RANGESSTANDARD DOSE: 2.0-3.0 Includes: PROPHYLAXIS for venous thrombosis, systemic embolization; TREATMENT for venous thrombosis and/or pulmonary embolus.HIGH RISK: Target INR is2.5-3.5 for patients wiht mechanical heart valves.PLATELET AGGREGATION: FUNCTION SCREEN 2018-09-12 15:58:00 Test Item Value Reference Range Interpretation Comments WEAK ADP 87 % 60-91 RESULT(BEAKER) (test code = 2135) PLATELET FUNCTION 60-100% indicates SCREEN INTERP (BEAKER) normal platelet (test code = 2173) function [id number] Genevieve Lin MD (BEAKER) (test code = (electronic signature) 5392) PLATELET COUNT AGG 174 K/CU MM 150-450 (BEAKER) (test code = 2656) Platelet Function Screen results may be falsely low with platelet counts<100,000/cu mm.for patients on clopidogrel in past two weeksfor patients on clopidogrel in past two weeksfor patients on clopidogrel in [facility] MET[facility]OLIC [id number] 10:47:00 Test Item Value Reference Range Interpretation Comments SODIUM (BEAKER) 141 meq/L 136-145 (test code = 381) POTASSIUM (BEAKER) 3.9 meq/L 3.5-5.1 (test code = 379) CHLORIDE (BEAKER) 113 meq/L 98-107 H (test code = 382) CO2 (BEAKER) (test 25 meq/L 22-29 code = 355) BLOOD UREA NITROGEN 24 mg/dL 7-21 H (BEAKER) (test code = 354) CREATININE (BEAKER) 0.84 mg/dL 0.57-1.25 (test code = 358) GLUCOSE RANDOM 133 mg/dL 70-105 H (BEAKER) (test code = 652) CALCIUM (BEAKER) 8.5 mg/dL 8.4-10.2 (test code = 697) EGFR (BEAKER) (test 88 mL/min/1.73 ESTIMA MIMI GFR IS code = 1092) sq m NOT ACCURATE CREATININE CLEARANCE IN PREDICTING GLOMERULAR FILTRATION RATE . ESTIMATED GFR I S NOT APPLICABLE FOR DIALYSIS PATIEN TS. PROTHROMBIN [id number] 10:27:00 Test Item Value Reference Range Interpretation Comments PROTIME (BEAKER) (test code = 15.4 seconds 11.9-14.2 H 759) INR (BEAKER) (test code = 370) 1.3 <=5.9 Effective 08/15/2018: PT Reference Range ChangeNew: 11.9-14.2 Previous: 11.7- 14.7RECOMMENDED COUMADIN/WARFARIN INR THERAPY RANGESSTANDARD DOSE: 2.0-3.0 Includes: PROPHYLAXIS for venous thrombosis, systemic embolization; TREATMENT for venous thrombosis and/or pulmonary embolus.HIGH RISK: Target INR is2.5-3.5 for patients wiht mechanical heart valves.CBC W/PLT COUNT & AUTO [id number] 10:19:00 Test Item Value Reference Range Interpretation Comments WHITE BLOOD CELL COUNT (BEAKER) 8.1 K/ L 3.5-10.5 (test code = 775) RED BLOOD CELL COUNT (BEAKER) 3.50 M/ L 4.63-6.08 L (test code = 761) HEMOGLOBIN (BEAKER) (test code = 10.4 GM/DL 13.7-17.5 L 410) HEMATOCRIT (BEAKER) (test code = 32.6 % 40.1-51.0 L 411) MEAN CORPUSCULAR VOLUME (BEAKER) 93.1 fL 79.0-92.2 H (test code = 753) MEAN CORPUSCULAR HEMOGLOBIN 29.7 pg 25.7-32.2 (BEAKER) (test code = 751) MEAN CORPUSCULAR HEMOGLOBIN CONC 31.9 GM/DL 32.3-36.5 L (BEAKER) (test code = 752) RED CELL DISTRIBUTION WIDTH 14.3 % 11.6-14.4 (BEAKER) (test code = 412) PLATELET COUNT (BEAKER) (test 105 K/CU MM 150-450 L code = 756) MEAN PLATELET VOLUME (BEAKER) 11.0 fL 9.4-12.4 (test code = 754) NUCLEATED RED BLOOD CELLS 0 /100 WBC 0-0 (BEAKER) (test code = 413) NEUTROPHILS RELATIVE PERCENT 72 % (BEAKER) (test code = 429) LYMPHOCYTES RELATIVE PERCENT 14 % (BEAKER) (test code = 430) MONOCYTES RELATIVE PERCENT 9 % (BEAKER) (test code = 431) EOSINOPHILS RELATIVE PERCENT 5 % (BEAKER) (test code = 432) BASOPHILS RELATIVE PERCENT 0 % (BEAKER) (test code = 437) NEUTROPHILS ABSOLUTE COUNT 5.82 K/ L 1.78-5.38 H (BEAKER) (test code = 670) LYMPHOCYTES ABSOLUTE COUNT 1.14 K/ L 1.32-3.57 L (BEAKER) (test code = 414) MONOCYTES ABSOLUTE COUNT (BEAKER) 0.70 K/ L 0.30-0.82 (test code = 415) EOSINOPHILS ABSOLUTE COUNT 0.42 K/ L 0.04-0.54 (BEAKER) (test code = 416) BASOPHILS ABSOLUTE COUNT (BEAKER) 0.02 K/ L 0.01-0.08 (test code = 417) IMMATURE GRANULOCYTES-RELATIVE 1 % 0-1 PERCENT (BEAKER) (test code = 2801) BLOOD GAS, [id number] 10:15:00 Test Item Value Reference Range Interpretation Comments PH ARTERIAL (BEAKER) (test code = 7.36 7.35-7.45 383) PCO2 ARTERIAL (BEAKER) (test code 43 mmHg 35-45 = 384) PO2 ARTERIAL (BEAKER) (test code 76 mmHg 80-90 L = 385) O2 SATURATION ARTERIAL (BEAKER) 94.7 % 96.0-97.0 L (test code = 386) HCO3 ARTERIAL (BEAKER) (test code 24 mmol/L 21-29 = 388) BASE EXCESS ARTERIAL (BEAKER) -1.9 mmol/L -2.0-3.0 (test code = 387) PATIENT TEMPERATURE (BEAKER) 37.0 C (test code = 1818) FIO2 (BEAKER) (test code = 1819) 21.0 % Only if arterial line in place and/or patient on ventilatorSODIUM NA-STAT LAB 2018-09-12 08:48:00 Test Item Value Reference Range Interpretation Comments SODIUM (BEAKER) (test code = 381) 141 meq/L 135-148 POTASSIUM-STAT [id number] 08:48:00 Test Item Value Reference Range Interpretation Comments POTASSIUM (BEAKER) (test code = 3.7 meq/L 3.6-5.5 379) BLOOD GAS, [id number] 08:48:00 Test Item Value Reference Range Interpretation Comments PH ARTERIAL (BEAKER) (test code = 7.41 7.35-7.45 383) PCO2 ARTERIAL (BEAKER) (test code 37 mmHg 35-45 = 384) PO2 ARTERIAL (BEAKER) (test code 513 mmHg 80-90 H = 385) O2 SATURATION ARTERIAL (BEAKER) 99.9 % 96.0-97.0 H (test code = 386) HCO3 ARTERIAL (BEAKER) (test code 23 mmol/L 21-29 = 388) BASE EXCESS ARTERIAL (BEAKER) -1.4 mmol/L -2.0-3.0 (test code = 387) PATIENT TEMPERATURE (BEAKER) 36.0 C (test code = 1818) FIO2 (BEAKER) (test code = 1819) 100.0 % GLUCOSE-STAT [id number] 08:48:00 Test Item Value Reference Range Interpretation Comments GLUCOSE RANDOM (BEAKER) (test code 117 mg/dL 70-110 H = 652) HGB/HCT (H&H) - STAT [id number] 08:48:00 Test Item Value Reference Range Interpretation Comments HEMOGLOBIN (BEAKER) (test code = 11.1 g/dL 13.0-16.8 L 410) HEMATOCRIT (BEAKER) (test code = 33.0 % 40.0-50.0 L 411) CALCIUM, [id number] 08:48:00 Test Item Value Reference Range Interpretation Comments CALCIUM IONIZED (BEAKER) (test 1.11 mmol/L 1.12-1.27 L code = 698) PH, BLOOD (BEAKER) (test code = 7.40 1810) BASIC METABOLIC [id number] 06:59:00 Test Item Value Reference Range Interpretation Comments SODIUM (BEAKER) 141 meq/L 136-145 (test code = 381) POTASSIUM (BEAKER) 3.9 meq/L 3.5-5.1 (test code = 379) CHLORIDE (BEAKER) 109 meq/L 98-107 H (test code = 382) CO2 (BEAKER) (test 26 meq/L 22-29 code = 355) BLOOD UREA NITROGEN 23 mg/dL 7-21 H (BEAKER) (test code = 354) CREATININE (BEAKER) 0.97 mg/dL 0.57-1.25 (test code = 358) GLUCOSE RANDOM 110 mg/dL 70-105 H (BEAKER) (test code = 652) CALCIUM (BEAKER) 9.2 mg/dL 8.4-10.2 (test code = 697) EGFR (BEAKER) (test 75 mL/min/1.73 ESTIMA MIMI GFR IS code = 1092) sq m NOT ACCURATE CREATININE CLEARANCE IN PREDICTING GLOMERULAR FILTRATION RATE . ESTIMATED GFR I S NOT APPLICABLE FOR DIALYSIS PATIEN TS. [id number] 06:46:00 Test Item Value Reference Range Interpretation Comments PROTIME (GEOVANY) (test code = 13.9 seconds 11.9-14.2 759) INR (GEOVANY) (test code = 370) 1.1 <=5.9 PARTIAL THROMBOPLASTIN TIME 51.8 seconds 22.5-36.0 H (BEAKER) (test code = 760) Effective 08/15/2018: PT Reference Range ChangeNew: 11.9-14.2 Previous: 11.7- 14.7RECOMMENDED COUMADIN/WARFARIN INR THERAPY RANGESSTANDARD DOSE: 2.0-3.0 Includes: PROPHYLAXIS for venous thrombosis, systemic embolization; TREATMENT for venous thrombosis and/or pulmonary embolus.HIGH RISK: Target INR is2.5-3.5 for patients wiht mechanical heart valves.PROTHROMBIN [id number] 06:45:00 Test Item Value Reference Range Interpretation Comments PROTIME (GEOVANY) (test code = 13.9 seconds 11.9-14.2 759) INR (BEKOREY) (test code = 370) 1.1 <=5.9 Effective 08/15/2018: PT Reference Range ChangeNew: 11.9-14.2 Previous: 11.7- 14.7RECOMMENDED COUMADIN/WARFARIN INR THERAPY RANGESSTANDARD DOSE: 2.0-3.0 Includes: PROPHYLAXIS for venous thrombosis, systemic embolization; TREATMENT for venous thrombosis and/or pulmonary embolus.HIGH RISK: Target INR is2.5-3.5 for patients wiht mechanical heart valves.POCT-GLUCOSE [id number] 06:24:00 Test Item Value Reference Range Interpretation Comments POC-GLUCOSE METER 117 mg/dL 70-110 H TESTED AT [facility] 6720 (GEOVANY) (test code = [place] 1538) [address] RAD, CHEST, 2 [id number] 13:32:00Reason for exam:->preop Should this be performed [...] the left favor chronic changes. Signed: Derik dOom MDReport Verified Date/Time: 09/04/2018 13:32:54 Reading Location: [facility] C013W Consult Reading Room CBC W/PLT COUNT & AUTO [id number] 12:57:00 Test Item Value Reference Range Interpretation Comments WHITE BLOOD CELL COUNT (BEAKER) 10.1 K/ L 3.5-10.5 (test code = 775) RED BLOOD CELL COUNT (BEAKER) 3.99 M/ L 4.63-6.08 L (test code = 761) HEMOGLOBIN (BEAKER) (test code = 11.9 GM/DL 13.7-17.5 L 410) HEMATOCRIT (BEAKER) (test code = 37.3 % 40.1-51.0 L 411) MEAN CORPUSCULAR VOLUME (BEAKER) 93.5 fL 79.0-92.2 H (test code = 753) MEAN CORPUSCULAR HEMOGLOBIN 29.8 pg 25.7-32.2 (BEAKER) (test code = 751) MEAN CORPUSCULAR HEMOGLOBIN CONC 31.9 GM/DL 32.3-36.5 L (BEAKER) (test code = 752) RED CELL DISTRIBUTION WIDTH 14.1 % 11.6-14.4 (BEAKER) (test code = 412) PLATELET COUNT (BEAKER) (test 117 K/CU MM 150-450 L code = 756) MEAN PLATELET VOLUME (BEAKER) 10.8 fL 9.4-12.4 (test code = 754) NUCLEATED RED BLOOD CELLS 0 /100 WBC 0-0 (BEAKER) (test code = 413) NEUTROPHILS RELATIVE PERCENT 72 % (BEAKER) (test code = 429) LYMPHOCYTES RELATIVE PERCENT 17 % (BEAKER) (test code = 430) MONOCYTES RELATIVE PERCENT 10 % (BEAKER) (test code = 431) EOSINOPHILS RELATIVE PERCENT 1 % (BEAKER) (test code = 432) BASOPHILS RELATIVE PERCENT 0 % (BEAKER) (test code = 437) NEUTROPHILS ABSOLUTE COUNT 7.25 K/ L 1.78-5.38 H (BEAKER) (test code = 670) LYMPHOCYTES ABSOLUTE COUNT 1.71 K/ L 1.32-3.57 (BEAKER) (test code = 414) MONOCYTES ABSOLUTE COUNT (BEAKER) 1.05 K/ L 0.30-0.82 H (test code = 415) EOSINOPHILS ABSOLUTE COUNT 0.07 K/ L 0.04-0.54 (BEAKER) (test code = 416) BASOPHILS ABSOLUTE COUNT (BEAKER) 0.02 K/ L 0.01-0.08 (test code = 417) IMMATURE GRANULOCYTES-RELATIVE 0 % 0-1 PERCENT (BEAKER) (test code = 6033)
--- NOTE | 2021-02-24 15:47 | RAD REPORT ---
EXAM DESCRIPTION: CT - Head Brain Wo Cont - 02/24/2021 3:37 pm CLINICAL HISTORY: WEAKNESS COMPARISON: Head Brain Wo Cont dated 06/28/2018; Head Brain Wo Cont dated 04/27/2018 TECHNIQUE: All CT scans are performed using dose optimization technique as appropriate and may inclu de automated exposure control or mA/KV adjustment according to patient size. FINDINGS: Large right-sided convex extra-axial fluid collection measuring 2.7 cm in maximal thicknes s. The attenuation of the collection is more isoattenuating than would be expected for acute hemorrha ge. This is along the right frontal lobe. There is right to left midline shift of approximately 11 mi llimeters. No hydrocephalus. No acute large vascular territory infarct. Deformity at the right maxillary sinus may be sequela of remote trauma and is unchanged. No skull fra cture is seen. IMPRESSION: Findings concerning for a late acute or subacute moderate sized epidural hematoma along the right frontal lobe. Right to left midline shift is present. No hydrocephalus. No infarct is ident ified. Discussed with Dr. Romero by Dr. Sarmiento at 1540 on 02/24/21.
[2021-02-24 16:12] LABS: Urine Blood Trace-intact (Negative); Urine Glucose Trace (Negative); Urine Protein Negative (Negative); Urine Specific Gravity <=1.005 (1.005-1.030); Urine pH 5.5 (5.0-7.0)
[2021-02-24 16:16] LABS: Urine Appearance CLEAR (Clear); Urine Bilirubin NEGATIVE (Negative); Urine Blood 1+ (Negative); Urine Color YELLOW (Yellow); Urine Glucose NEGATIVE (Negative); Urine Protein NEGATIVE (Negative); Urine Specific Gravity <=1.005 (1.005-1.030); Urine Urobilinogen 0.2 mg/dL (0.2-1.0); Urine pH 6.5 (5.0-7.0)
[2021-02-24 16:19] LABS: Absolute Lymphocytes (CBC) 1.1 K/uL (0.7-4.9); Basophils % 0.4 % (0-1.3); Hematocrit 40.5 % (39.6-49.0); Lymphocytes % 18.7 % (15.3-44.8); MPV 8.9 fL (7.6-11.3); Protime INR 1.05; RBC Red Blood Cell Count 4.48 M/uL (4.33-5.43)
[2021-02-24 16:30] LABS: ALT/SGPT 21 U/L (12-78); AST/SGOT 18 U/L (15-37); Albumin 3.5 g/dL (3.4-5.0); Alkaline Phosphatase 110 U/L (45-117); BUN Blood Urea Nitrogen 11 mg/dL (7-18); Bicarbonate 27 mmol/L (21-32); Bilirubin Direct 0.2 mg/dL (0-0.2); Bilirubin Total 0.6 mg/dL (0.2-1.0); Glucose Level 108 mg/dL (74-106); Magnesium 2.4 mg/dL (1.8-2.4); NT PRO-BNP 258 pg/mL (<450); Potassium 3.7 mmol/L (3.5-5.1); Sodium Level 141 mmol/L (136-145); Troponin (Emerg Dept Use Only) < 0.02 ng/mL (0.0-0.045)
[2021-02-24 16:57] LABS: Urine Microscopic Reflex ORDER UMIC
--- NOTE | 2021-02-24 16:59 | RAD REPORT ---
EXAM DESCRIPTION: RAD - Chest Single View - 02/24/2021 4:34 pm CLINICAL HISTORY: MALAISE COMPARISON: Chest Pa And Lat (2 Views) dated 02/18/2019; Chest Pa And Lat (2 Views) dated 11/21/2018; C hest Pa And Lat (2 Views) dated 07/16/2018; Chest Single View dated 06/28/2018; Chest Abd Pelvis Wo Con dated 12/23/2020 FINDINGS: Lines: None. Lungs: Increasing opacification within the left lung with air bronchograms in the left lower lobe. Mu ch of the left lung is consolidated. The right lung is clear. Pleural: Left pleural effusion and/or thickening. Cardiac: The heart size is within normal limits. Bones: No acute fractures. Sternotomy. Other: IMPRESSION: Increased opacification of the left lung for which chest CT with contrast is recommended for further evaluation. This could be secondary to a variety of processes including atelectasis, pne umonia, and neoplastic etiologies.
[2021-02-24 17:01] LABS: Urine Bacteria <20 /HPF (NONE SEEN); Urine RBC <5 /HPF (NONE SEEN)
--- NOTE | 2021-02-24 17:22 | EDPHYS ---
Physician Documentation [facility] Name: Kuldeep Ramsey Age: 80 yrs Sex: Male : 1940 Arrival Date: 02/24/2021 Time: 14:33 Bed 18 Private MD: ED Physician Gera Romero HPI: 02/24 15:20 This 80 yrs old Male presents to ER via EMS with complaints of General sp3 Weakness. 15:20 80-year-old male history of myocardial infarction and hypertension presents for sp3 generalized weakness x1 week. Patient discussed with his PCP who advised him to present to the ED. Patient cannot specify an exact sign or symptom but just states that he feels "weak all over". When asked specifically on ROS, he denies headache, fever, URI symptoms, neck pain, chest pain, shortness of breath, back pain, abdominal pain, nausea, vomiting, diarrhea, syncope, vertigo, rash, extremity weakness or numbness, any other symptoms at this time.. Historical: - Allergies: 14:58 Codeine; ll3 14:58 Morphine; ll3 14:58 Geodon; ll3 14:58 Seroquel; ll3 - Home Meds: 14:58 amlodipine oral [Active]; Magnesium Oxide Oral [Active]; Omeprazole Oral for ll3 Gastroesophageal reflux, Heartburn [Active]; sotalol Oral [Active]; atorvastatin 80 mg oral tab [Active]; naltrexone oral 1.5 mg [Active]; - PMHx: 14:58 Myocardial infarction; Hypertension; ll3 - PSHx: 14:58 Cholecystectomy; ll3 - Immunization history:: Client reports having NOT received the Covid vaccine. - Social history:: Smoking status: Patient denies any tobacco usage or history of. ROS: 15:22 Constitutional: Negative for fever, chills, and weight loss, Eyes: Negative for injury, sp3 pain, redness, and discharge, ENT: Negative for injury, pain, and discharge, Neck: Negative for injury, pain, and swelling, Cardiovascular: Negative for chest pain, palpitations, and edema, Respiratory: Negative for shortness of breath, cough, wheezing, and pleuritic chest pain, Abdomen/GI: Negative for abdominal pain, nausea, vomiting, diarrhea, and constipation, MS/Extremity: Negative for injury and deformity, Neuro: Negative for headache, weakness, numbness, tingling, and seizure, Psych: Negative for depression, anxiety, suicide ideation, homicidal ideation, and hallucinations, Allergy/Immunology: Negative for hives, rash, and allergies, Endocrine: Negative for neck swelling, polydipsia, polyuria, polyphagia, and marked weight changes. 15:22 All other systems are negative. Exam: 15:22 Constitutional: This is a well developed, well nourished patient who is awake, alert, sp3 and in no acute distress. Head/Face: Normocephalic, atraumatic. Eyes: Pupils equal round and reactive to light, extra-ocular motions intact. Lids and lashes normal. Conjunctiva and sclera are non-icteric and not injected. Cornea within normal limits. Periorbital areas with no swelling, redness, or edema. ENT: Nares patent. No nasal discharge, no septal abnormalities noted. External auditory canals are clear. Oropharynx with no redness, swelling, or masses, exudates, or evidence of obstruction, uvula midline. Mucous membranes moist. Neck: Trachea midline, no thyromegaly or masses palpated, and no cervical lymphadenopathy. Supple, full range of motion without nuchal rigidity, or vertebral point tenderness. No Meningismus. Chest/axilla: Normal chest wall appearance and motion. Nontender with no deformity. No lesions are appreciated. Cardiovascular: Regular rate and rhythm with a normal S1 and S2. No gallops, murmurs, or rubs. Normal PMI, no JVD. No pulse deficits. Respiratory: Lungs have equal breath sounds bilaterally, clear to auscultation and percussion. No rales, rhonchi or wheezes noted. No increased work of breathing, no retractions or nasal flaring. Abdomen/GI: Soft, non-tender, with normal bowel sounds. No distension or tympany. No guarding or rebound. No evidence of tenderness throughout. Skin: Warm, dry with normal turgor. Normal color with no rashes, no lesions, and no evidence of cellulitis. MS/ Extremity: Pulses equal, no cyanosis. Neurovascular intact. Full, normal range of motion. Neuro: Awake and alert, GCS 15, oriented to person, place, time, and situation. Cranial nerves II-XII grossly intact. Motor strength 5/5 in all extremities. Sensory grossly intact. Cerebellar exam normal. Normal gait. Psych: Awake, alert, with orientation to person, place and time. Behavior, mood, and affect are within normal limits. Vital Signs: 14:55 BP 140 / 65; Pulse 67; Resp 16; Temp 98.2(O); Pulse Ox 100% on R/A; Weight 83.91 kg ll3 (R); Height 5 ft. 9 in. (175.26 cm) (R); Pain 5/10; 16:00 BP 155 / 67; Pulse 66; Resp 18; Pulse Ox 100% ; ll3 17:00 BP 149 / 69; Pulse 64; Resp 19; Pulse Ox 97% on R/A; ll3 18:45 BP 129 / 66; Pulse 88; Resp 18; Pulse Ox 96% on R/A; ll3 14:55 Body Mass Index 27.32 (83.91 kg, 175.26 cm) ll3 MDM: 15:05 Patient medically screened. sp3 15:23 Data reviewed: vital signs, nurses notes. ED course: 80-year-old male with generalized sp3 weakness. Broad differential exists including infection, sepsis, ACS, electrolyte abnormality, dehydration, among others. We will cast a broad net including full cardiac work-up, UA, head CT, and Covid.. 16:39 ED course: T scan demonstrates epidural hematoma of 2.7 cm with 11 mm of midline shift sp3 on the right frontal lobe. Chest x-ray also demonstrates new opacities in the left lung. Clinically there is no pneumonia and patient's WBC count is 6.0. Patient is alert and oriented with a normal neurological exam at this time. Will transfer to trauma service secondary to the cause of his symptoms being multiple falls. Remainder of his labs are unremarkable at this time and patient is not coagulopathic.. 17:19 ED course: Discussed with Dr. Palomares the neuro dry food products mixer at [facility] sp3 who has graciously excepted this patient into the neuro ICU and will obtain neurosurgical consultation as well.. 02/24 15:16 Order name: Basic Metabolic Panel sp3 02/24 15:16 Order name: CBC with Diff sp3 02/24 15:16 Order name: LFT's sp3 02/24 15:16 Order name: Magnesium; Complete Time: 16:36 sp3 02/24 15:16 Order name: NT PRO-BNP; Complete Time: 16:36 sp3 02/24 15:16 Order name: PT-INR; Complete Time: 16:36 sp3 02/24 15:16 Order name: Troponin (emerg Dept Use Only); Complete Time: 16:36 sp3 02/24 15:16 Order name: UA MICROSCOPIC; Complete Time: 17:16 sp3 02/24 15:16 Order name: UA; Complete Time: 17:16 sp3 02/24 15:16 Order name: Basic Metabolic Panel; Complete Time: 16:36 EDMS 02/24 15:16 Order name: CBC with Automated Diff; Complete Time: 16:36 EDMS 02/24 15:16 Order name: Liver (Hepatic) Function; Complete Time: 16:36 EDMS 02/24 16:12 Order name: Urine Dipstick-Ancillary; Complete Time: 16:36 EDMS 02/24 15:16 Order name: XRAY Chest (1 view); Complete Time: 17:16 sp3 02/24 15:16 Order name: EKG; Complete Time: 15:17 sp3 02/24 15:16 Order name: Cardiac monitoring; Complete Time: 16:00 sp3 02/24 15:16 Order name: EKG - Nurse/Tech; Complete Time: 16:00 sp3 02/24 15:16 Order name: IV Saline Lock; Complete Time: 16:00 sp3 02/24 15:16 Order name: Labs collected and sent; Complete Time: 16:00 sp3 02/24 15:16 Order name: O2 Per Protocol; Complete Time: 15:32 sp3 02/24 15:16 Order name: O2 Sat Monitoring; Complete Time: 15:32 sp3 02/24 15:16 Order name: Urine Dipstick-Ancillary (obtain specimen); Complete Time: 16:00 sp3 02/24 15:16 Order name: CT Head Brain wo Cont; Complete Time: 16:09 sp3 02/24 16:15 Order name: SARS-COV-2 RT PCR; Complete Time: 17:16 EDMS Administered Medications: No medications were administered Disposition Summary: 02/24/21 17:21 Transfer Ordered Transfer Location: [facility] sp3 Reason: Higher level of care sp3 Condition: Stable sp3 Problem: new sp3 Symptoms: are unchanged sp3 Accepting Physician: Dr. Palomares(02/24/21 18:52) ll3 Diagnosis - Epidural hematoma sp3 Forms: - Medication Reconciliation Form sp3 - SBAR form sp3 Signatures: Dispatcher [employer] EDMS Gera Romero MD MD sp3 Дмитрий Cuello RN RN ll3 Corrections: (The following items were deleted from the chart) 16:15 15:26 CORONAVIRUS+MR.LAB.BRZ ordered. EDMS EDMS 17:02 16:58 Urine Microscopic Only ordered. EDMS EDMS 18:52 17:21 Dr. Palomares sp3 ll3
--- NOTE | 2021-02-24 17:22 | ER ---
Nurse's Notes [facility] – [place], [place] Name: Kuldeep Ramsey Age: 80 yrs Sex: Male : 1940 Arrival Date: 02/24/2021 Time: 14:33 Bed 18 Private MD: Diagnosis: Epidural hematoma Presentation: 02/24 14:55 Chief complaint: Patient states: EMS toned out for increasing dementia symptoms and ll3 weakness. Coronavirus screen: Vaccine status: Patient reports being unvaccinated. At this time, the client does not indicate any symptoms associated with coronavirus-19. Ebola Screen: No symptoms or risks identified at this time. Initial Sepsis Screen: Does the patient meet any 2 criteria? No. Patient's initial sepsis screen is negative. Does the patient have a suspected source of infection? No. Patient's initial sepsis screen is negative. Risk Assessment: Do you want to hurt yourself or someone else? Patient reports no desire to harm self or others. Onset of symptoms is unknown. 14:55 Method Of Arrival: EMS: [facility] ll3 14:55 Acuity: JEREMÍAS 3 ll3 15:40 Acuity: JEREMÍAS 2 iw Triage Assessment: 15:05 General: Appears in no apparent distress. comfortable, Behavior is calm, cooperative. ll3 Pain: Complains of pain in H/A Pain does not radiate. Pain currently is 5 out of 10 on a pain scale. Quality of pain is described as aching, Pain began 1 hour ago. Is continuous. Neuro: Level of Consciousness is awake, alert, obeys commands, Oriented to person, place, situation, Speech is normal, Facial symmetry appears normal. Cardiovascular: Patient's skin is warm and dry. Respiratory: Airway is patent Respiratory effort is even, unlabored, Respiratory pattern is regular, symmetrical. Derm: Skin is pink, warm \T\ dry. Historical: - Allergies: 14:58 Codeine; ll3 14:58 Morphine; ll3 14:58 Geodon; ll3 14:58 Seroquel; ll3 - Home Meds: 14:58 amlodipine oral [Active]; Magnesium Oxide Oral [Active]; Omeprazole Oral for ll3 Gastroesophageal reflux, Heartburn [Active]; sotalol Oral [Active]; atorvastatin 80 mg oral tab [Active]; naltrexone oral 1.5 mg [Active]; - PMHx: 14:58 Myocardial infarction; Hypertension; ll3 - PSHx: 14:58 Cholecystectomy; ll3 - Immunization history:: Client reports having NOT received the Covid vaccine. - Social history:: Smoking status: Patient denies any tobacco usage or history of. Screenin:08 Abuse screen: Denies threats or abuse. Nutritional screening: No deficits noted. ll3 Tuberculosis screening: No symptoms or risk factors identified. 17:36 Fall Risk Fall in past 12 months (25 points). IV access (20 points). Total [place]aza Fall ll3 Scale indicates High Risk Score (45 or more points). Fall prevention measures have been instituted. Side Rails Up X 2 Placed Close to Nursing Station Family Present and informed to notify staff if the need to leave the bedside. Assessment: 15:07 General: See triage. ll3 16:01 Reassessment: Patient appears in no apparent distress at this time. No changes from ll3 previously documented assessment. Patient and/or family updated on plan of care and expected duration. Pain level reassessed. Patient is alert, oriented x 3, equal unlabored respirations, skin warm/dry/pink. 17:35 Reassessment: Patient appears in no apparent distress at this time. No changes from ll3 previously documented assessment. Patient and/or family updated on plan of care and expected duration. Pain level reassessed. Patient is alert, oriented x 3, equal unlabored respirations, skin warm/dry/pink. 18:30 Reassessment: Patient appears in no apparent distress at this time. No changes from ll3 previously documented assessment. Patient and/or family updated on plan of care and expected duration. Pain level reassessed. Patient is alert, oriented x 3, equal unlabored respirations, skin warm/dry/pink. Vital Signs: 14:55 BP 140 / 65; Pulse 67; Resp 16; Temp 98.2(O); Pulse Ox 100% on R/A; Weight 83.91 kg ll3 (R); Height 5 ft. 9 in. (175.26 cm) (R); Pain 5/10; 16:00 BP 155 / 67; Pulse 66; Resp 18; Pulse Ox 100% ; ll3 17:00 BP 149 / 69; Pulse 64; Resp 19; Pulse Ox 97% on R/A; ll3 18:45 BP 129 / 66; Pulse 88; Resp 18; Pulse Ox 96% on R/A; ll3 14:55 Body Mass Index 27.32 (83.91 kg, 175.26 cm) ll3 ED Course: 14:33 Patient arrived in ED. ds1 14:49 Heather Arellano, RN is Primary Nurse. ld1 14:58 Gera Romero MD is Attending Physician. sp3 14:58 Triage completed. ll3 15:08 Дмитрий Cuello, RN is Primary Nurse. ll3 15:09 Arm band placed on. ll3 15:09 Patient has correct armband on for positive identification. Bed in low position. Call ll3 light in reach. Side rails up X 1. Adult w/ patient. 15:36 CT Head Brain wo Cont In Process Unspecified. EDMS 16:15 Initial lab(s) drawn, by me, sent to lab. Urine collected: clean catch specimen, clear, jl7 EKG done, by ED staff, reviewed by Gera Romero MD COVID swab sent to lab. Inserted saline lock: 20 gauge in right forearm, using aseptic technique. Blood collected. 16:34 XRAY Chest (1 view) In Process Unspecified. EDMS 17:15 Diet: initiated transfer to [facility].. bd 17:37 Basic Metabolic Panel Sent. ll3 17:37 CBC with Diff Sent. ll3 17:37 LFT's Sent. ll3 17:52 pt accepted in transfer to [facility] by dr uli zheng, admin approval given bd by Omero Monk. 18:51 No provider procedures requiring assistance completed. Patient transferred, IV remains ll3 in place. No redness/swelling at site. Administered Medications: No medications were administered Outcome: 17:21 ER care complete, transfer ordered by . sp3 18:52 Transferred by ground EMS to [facility], Transfer form completed. ll3 18:52 Condition: stable 18:52 Discharge instructions given to patient, family, Instructed on the need for transfer, Demonstrated understanding of instructions. 18:52 Patient left the ED. ll3 Signatures: Dispatcher [employer] EDMS Angelika Larsen Demi ds1 Beata Berry RN RN iw Leal, Jahala, RN RN jl7 Heather Arellano, RN RN ld1 Gera Romero MD MD sp3 Дмитрий Cuello RN RN ll3 Corrections: (The following items were deleted from the chart) 15:09 15:05 Neuro: Level of Consciousness is awake, alert, obeys commands, Oriented to ll3 person, place, time, situation, Speech is normal, Facial symmetry appears normal, ll3
[2021-02-24 18:59] VITALS: TEMP 98.2
[2021-02-24 19:04] VITALS: BP 129/66; O2SAT 96
== END 2021-02-24 18:52 | disposition short-term general hospital (02) ==
LOC: ER 14:27
DX: S06.4X0A Epidural hemorrhage without loss of consciousness, initial encounter (principal); I10 Essential (primary) hypertension; I25.2 Old myocardial infarction; Z20.822 Contact with and (suspected) exposure to COVID-19; Z88.5 Allergy status to narcotic agent; Z88.8 Allergy status to other drugs, medicaments and biological substances
CPT/HCPCS: 93005; 85025; 80048; 36415; 83735; 85610; 80076; 84484; 83880; 70450; 71045; 99285; U0003; 81003; 81015

== ENCOUNTER 2021-03-16 06:29 | Emergency (ER) | payer OTHER ==
--- OUTSIDE RECORDS SUMMARY | 2021-03-16 06:34 | XMS REPORT | Continuity of Care Document ---
:1940 Author Organization [facility] t Address [address] [place] [address] Care Team Providers Name Role Phone YECENIA VILLATORO Primary Care Physician Unavailable JUAN MANUEL Attending Clinician Unavailable JL EDMONDS Attending Clinician Unavailable PIA STONE Attending Clinician Unavailable MICHELLE DA SILVA Attending Clinician Unavailable CHARIS STOVER Attending Clinician Unavailable ELOY Attending Clinician Unavailable Juan Manuel BABCOCK Attending Clinician BONY MSITH Attending Clinician Unavailable JUAN MANUEL Admitting Clinician Unavailable MICHELLE DA SILVA Admitting Clinician Unavailable ELOY Admitting Clinician Unavailable BONY SMITH Admitting Clinician Unavailable Payers Payer Name Policy Type Policy Number Effective Date Expiration Date S ource MEDICARE A B [id number] 2005 00:00:00 Problems Condition Condition Condition Status Onset Resolution Last Treating Co mments Source Name Details Category Date Date Treatment Clinician Date Hx of Hx of Disease Active [facility] exercise exercise 04-17 Colleg e stress stress 00:00: of test test 00 Medicin e Renal Renal Disease Active [facility] 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[place] aneurysm aneurysm 00:00: of (HCCode) (HCCode) 00 Medici n e Allergies, Adverse Reactions, Alerts Allergy Allergy Status Severity Reaction(s) Onset Inactive Treating Comm ents Source Name Type Date Date Clinician Greer Propensi Active [facility] ty to 04-17 College adverse 00:00: of reaction 00 Medicin s to e drug Kdc:[place] Propensi Active [facility] ow ty to 04-17 Dye+Zipr adverse 00:00: of asidone+ reaction 00 Medici n Brillian s to e t Blue drug [facility] Iodine Propensi Active [facility] ty to 04-17 [place] adverse 00:00: of reaction 00 Medicin s to e drug Opioid Propensi Active [facility] Analgesi ty to 04-17 [place] cs adverse 00:00: of reaction 00 Medicin s to e drug CITRUS Allergy Active 2018-[address] [facility] DERIVATI [facility]: Medical VES 00 Center CODEINE Allergy Active 2019- [facility] IODINATE Allergy Active 2018- [facility] CONTRAST 00:00: Medical MEDIA 00 Center KIWI Allergy Active High Anaphylaxis 2018- [facility] (ACTINID [facility] IA 00:00: Medical CHINENSI 00 Center S) MORPHINE Allergy Active 2018- [facility] Center QUETIAPI Allergy Active 2018- [facility] - FUMARATE 00:00: Medical 00 Center STRAWBER Allergy Active High Anaphylaxis 2019- [facility] Medical 00 Center ZIPRASID Allergy Active 2019- [facility] ONE 6[facility] - MESYLATE 00:00: Medical 00 [place] Social History Social Habit Start Date Stop Date Quantity Comments Source Sex Assigned At [facility] Smoking Status Start Date Stop Date Source Never smoker [facility] o f Medicine Medications Ordered Filled Start Stop Current Ordering Indication Dosage Frequency Signature Comments Components Source Medication Medication Date Date Medication? Clinician (SIG) Name Name Mirabegron 2020-0 Yes 25mg Take 25 mg [facility] ER 04-17 by mouth. [place] (MYRBETRIQ) 17:28: of 25 MG TB24 46 Medicin e atorvastati 2019-0 Yes 80mg Take 80 mg [facility] n (LIPITOR) 04-17 by mouth Abdon ege 80 MG 17:28: daily. of tablet 46 Medicin e Calcium 2019-0 Yes Take by [facility] Acetate-Mag 04-17 mouth. Colleg e nesium Carb 17:28: of 450-200 MG 46 Medicin TABS e fluticasone 2019-0 Yes 1{spray 1 [place] by [facility] (FLONASE) 1 } Nasal College 50 MCG/ACT 17:28: route. of nasal spray 46 Medicin e amlodipine Yes 10mg Take 10 mg [facility] (NORVASC) 11-21 by mouth. Colle ge 10 MG 00:00: of tablet 00 Medicin e losartan Yes AT BEDTIME [place] (COZAAR) 50 9-04 College MG tablet 00:00: of 00 Medicin e clopidogrel Yes 1{tbl} 1 Tab. [facility] (PLAVIX) 75 2-12 College MG Tablet 00:00: of 00 Medicin e Vital Signs Vital Name Observation Time Observation Value Comments Source HEIGHT 2021-03-14 01:15:00 175.3 cm WEIGHT 2021-03-14 01:15:00 82.2 kg HEIGHT 2021-03-14 01:15:00 175.3 cm WEIGHT 2021-03-14 01:15:00 82.2 kg HEIGHT 2021-02-24 20:30:00 176.3 cm WEIGHT 2021-02-24 20:30:00 80.4 kg HEIGHT 2021-02-24 20:30:00 176.3 cm WEIGHT 2021-02-24 20:30:00 80.4 kg Systolic blood 2019-04-17 17:28:00 158 mm[Hg] [facility] pressure Medicine Diastolic blood 2019-04-17 17:28:00 78 mm[Hg] [facility] pressure Medicine Heart rate 2019-04-17 17:28:00 69 /min [facility] Body weight 2019-04-17 17:28:00 78.472 kg [facility] Procedures This patient has no known procedures. Plan of Care Planned Activity Planned Date Details Comments Source Future Scheduled Test TETANUS SHOT (ADULT) [facility] [code = TETANUS SHOT Medicin e (ADULT)] Future Scheduled Test MEDICARE AWV [facility] (Initial) [code = Medicine MEDICARE AWV (Initial)] Future Scheduled Test FALL SCREEN [code = [facility] FALL SCREEN] Medicine Future Scheduled Test PNEUMOVAX >=65 [facility] (PPSV23) [code = Medicine PNEUMOVAX >=65 (PPSV23)] Future Scheduled Test PREVNAR >= 65 (PCV13) [facility] [code = PREVNAR >= 65 Medici ne (PCV13)] Future Scheduled Test FLU VACCINE > 6 [facility] [code = FLU Medicine VACCINE > 6 MONTHS] Encounters Start End Encounter Admission Attending Care Care Encounter Source Date/Time Date/Time Type Type Clinicians Facility Department ID 2020-12-22 Inpatient EDNA BAILEY Surgery [id number] [facility] 15:37:42 [facility] 2021-03-14 2021-03-15 Inpatient ER KENDAL [facility] Neuro ICU [id number] SLE 01:11:00 12:29:00 CE 2021-03-15 2021-03-15 [facility] [id number] SLE 00:00:00 00:00:00 [facility] 2021-02-24 2021-02-27 Inpatient ER DOYLE STOVER [facility] Surgery [id number] SLE 19:54:00 17:51:00 2019-08-15 2019-08-15 Outpatient [facility] [id number] SLE 00:00:00 00:00:00 2019-08-13 2019-08-13 Outpatient [facility] [id number] [facility] 00:00:00 00:00:00 [id number] 2019-06-17 2019-06-17 Outpatient [facility] [id number] 0-2 [facility] 00:00:00 00:00:00 [id number] 2019-04-17 2019-04-17 Office SHASHA Zambrano [id number] [facility] 11:16:47 14:53:18 Visit [facility] AMBULATOR [id number] College Y [id number] [facility] [id number] [facility] 825 e Results Test Description Test Time Test Comments Results Result Comments Source BASIC METABOLIC PANEL 2021-03-15 05:07:26 Test Item Value Reference Range Interpretation Comme nts SODIUM (BEAKER) (test code 138 meq/L 136-145 = 381) POTASSIUM (BEAKER) (test 3.6 meq/L 3.5-5.1 code = 379) CHLORIDE (BEAKER) (test 105 meq/L 98-107 code = 382) CO2 (BEAKER) (test code = 26 meq/L 22-29 355) BLOOD UREA NITROGEN 11 mg/dL 7-21 (BEAKER) (test code = 354) CREATININE (BEAKER) (test 0.75 mg/dL 0.57-1.25 code = 358) GLUCOSE RANDOM (BEAKER) 118 mg/dL 70-105 H (test code = 652) CALCIUM (BEAKER) (test 9.2 mg/dL 8.4-10.2 code = 697) EGFR (BEAKER) (test code = 100 mL/min/1.73 sq m ESTIMATED GFR IS NOT 1092) ACCURATE CRE ATININE CLEARANCE IN NE EDICTING GLOMERULAR FILT RATION RATE. ESTIMATED GFR IS NOT APPLICABLE FOR DIALYSIS PATIENTS. Medical Dermatologist ID - DBPOCT-GLUCOSE [id number] 11:13:30 Test Item Value Reference Range Interpretation Comments POC-GLUCOSE METER 152 mg/dL 70-110 H : TESTED A T [facility] 67[facility] (BEAKER) (test code [facility], = 1538) [id number]: Medical Dermatologist/Techni mei ID = [id number] for Shelby moses (contract), Syt ezra CT, BRAIN, WITHOUT [id number] 10:46:00Unlisted Reason for Exam - Click Yes and Enter Reason Below->No [facility] : 1940 Sex: MFINAL REPORT CT, BRAIN, WITHOUT CONTRAST CLINICAL INDICATION: Subd ural hemorrhage, follow-up COMPARISON: February 25, 2021 TECHNIQUE: Noncontrast axial CT imaging of the brain and skull. DOSE REDUCTION: Dose modulation, iterative reconstruction, and/or weight-based adjustment of the mA/kV was utilized to reduce the radiation dose to as low as reasonably achievable. FINDINGS:Status post merlin hole drainage of extra-axial hematoma with interval resolution of pneumocephalus. Residual mixed density hematoma with some hyperdense blood products layering within the dependent portions, suggestive of recent interval rebleeding. Consequent 5 mm left orbit midline shift is u nchanged given differences in angulation and technique. No hydrocephalus. Unchanged mild effacement of the right lateral ventricle. Orbits are within normal limits. No obstructive paranasal sinus disease. IMPRESSION: Status post merlin hole drainage of extra-axial hematoma. Residual mixed density hematoma with some hyperdense blood products layering within the dependent portions, suggestive of recent interval rebleeding. Consequent 5 mm leftward midline shift is unchanged given differences in angulation and technique. If there is persistent clinical concern for intracranial pathology, MR examinationis recommended for further characterization. Signed: Vin Chapa MDReport Verified Date/Time: 03/14/2021 10:46:46 SARS-COV2/RT-PCR ([facility])2021-03-14 07:03:48 Test Item Value Reference Range Interpretation Comments SARS-COV2/RT-PCR Negative Negative The SARS-Co V-2 target (test code = nucleic acids a re not [id number]) detected in thi s specimen. Negative result s do not preclude SARS-C oV-2 infection and s hould not be used as the rita e basis for patient managem ent decisions. Nega tive results must be combine d with clinical observ ations, patient history , and epidemiological information. A false negativ e result may occur if a spec imen is improperly abdon ected, transported or handled. This SARS CoV-2 test is a rapid, real-osei e RT-PCR test intended for th e qualitative detection of nu cleic acid from SARS-CoV-2 in a nasopharyngeal swab specimen collected from individuals suspected of CO VID-19 by their healthcar e provider. This test has been authorized by FDA under an EUA for use by authorized laboratories. This test is only authorized for the duration of the declaration that circumstances exist justifying the authorization of emergency use of in vitro diagnostic tests for detection and/or diagnosis of COVID-19 under Section 564(b)(1) of the Federal Food, Drug and Cosmetic Act, 21 U.S.C. 360bbb- 3(b)(1), unless the authorization is terminated or revoked sooner. Fact Sheet for Healthcare Providers: https://www.[employer]/Documents/Xpert%20Xpress%20SARS%20CoV-2/Fact%20Sheets/302-3802%20SARS-COV -2%20HEALTHCARE%20PROVIDERS%20FACT%20SHEET.pdf Fact Sheet for Healthcare Patients: https://www.[employer]/Documents/Xpert %20Xpress%20SARS%20CoV-2/Fact%20Sheets/302-3801%82IIPV-TPW-7%20PATIENT%20FACT%20 SHEET.pdfPROTHROMBIN TIME/[id number] 06:29:21 Test Item Value Reference Range Interpretation Comments PROTIME (BEAKER) 13.7 seconds 11.9-14.2 (test code = 759) INR (AdStageAKER) (test 1.07 See_Comment [Automat ed message] code = 370) The system TripChamp generated this result transmitted ref erence range: <=5.90. The reference range was not used to int erpret this result as normal/abnormal . RECOMMENDED COUMADIN/WARFARIN INR THERAPY RANGESSTANDARD DOSE: 2.0 - 3.0 Includes: PROPHYLAXIS forvenous thrombosis, systemic embolization; TREATMENT for venous thrombosis and/or pulmonary embolus.HIGH RISK: Target INR is 2.5-3.5 for patients with mechanical heart valves.POCT-GLUCOSE [id number] 06:04:12 Test Item Value Reference Range Interpretation Comments POC-GLUCOSE METER 112 mg/dL 70-110 H : TESTED A T [facility] 6720 (BEAKER) (test code = [place], 1538) [id number]: Medical Dermatologist/Techni mei ID = [id number] for Ijeoma Pisano THROMBOELASTOGRAPH (TEG)2021-03-14 05:32:14 Test Item Value Reference Range Interpretation Comments TEG ACTIVATED CLOTTING TIME 7.5 minutes 4.0-7.0 H (BEAKER) (test code = 1407) TEG FIBRINOGEN ACTIVITY (BEAKER) 66.0 degrees 61.0-73.0 (test code = 1408) TEG PLT. AGGREGATION (BEAKER) 65.9 MM 55.0-65.0 H (test code = 1409) TEG FIBRINOLYSIS (BEAKER) (test 0.1 % 0.0-5.0 code = 1410) TGH ACTIVATED CLOTTING TIME 7.0 minutes 4.0-7.0 (BEAKER) (test code = 1411) TGH FIBRINOGEN ACTIVITY (BEAKER) 67.7 degrees 61.0-73.0 (test code = 1412) TGH PLT. AGGREGATION (BEAKER) 66.5 MM 55.0-65.0 H (test code = 1413) TGH FIBRINOLYSIS (BEAKER) (test 0.0 % 0.0-5.0 code = 1414) [id number] 04:42:48 Test Item Value Reference Range Interpretation Comments PHOSPHORUS (BEAKER) 3.5 mg/dL 2.3-4.7 Specimen slightly (test code = 604) hemolyzed Medical Dermatologist ID - DBBASIC METABOLIC [id number] 04:42:48 Test Item Value Reference Range Interpretation Comments SODIUM (BEAKER) 141 meq/L 136-145 (test code = 381) POTASSIUM (BEAKER) 3.8 meq/L 3.5-5.1 Specimen slightly (test code = 379) hemolyzed CHLORIDE (BEAKER) 106 meq/L 98-107 (test code = 382) CO2 (BEAKER) (test 27 meq/L 22-29 code = 355) BLOOD UREA NITROGEN 10 mg/dL 7-21 (BEAKER) (test code = 354) CREATININE (BEAKER) 0.80 mg/dL 0.57-1.25 Specimen slightly (test code = 358) hemolyzed GLUCOSE RANDOM 126 mg/dL 70-105 H (BEAKER) (test code = 652) CALCIUM (BEAKER) 9.4 mg/dL 8.4-10.2 (test code = 697) EGFR (BEAKER) (test 93 mL/min/1.73 ESTIMA MIMI GFR IS code = 1092) sq m NOT ACCURATE CREATININE CLEARANCE IN PREDICTING GLOMERULAR FILTRATION RATE . ESTIMATED GFR I S NOT APPLICABLE FOR DIALYSIS PATIEN TS. Medical Dermatologist ID - [id number] 04:42:47 Test Item Value Reference Range Interpretation Comments MAGNESIUM (BEAKER) 2.0 mg/dL 1.6-2.6 Specimen slightly (test code = 627) hemolyzed Medical Dermatologist ID - DBCBC W/PLT COUNT & AUTO [id number] 04:13:13 Test Item Value Reference Range Interpretation Comments WHITE BLOOD CELL COUNT (BEAKER) 6.2 K/ L 3.5-10.5 (test code = 775) RED BLOOD CELL COUNT (BEAKER) 4.09 M/ L 4.63-6.08 L (test code = 761) HEMOGLOBIN (BEAKER) (test code = 12.1 GM/DL 13.7-17.5 L 410) HEMATOCRIT (BEAKER) (test code = 36.9 % 40.1-51.0 L 411) MEAN CORPUSCULAR VOLUME (BEAKER) 90.2 fL 79.0-92.2 (test code = 753) MEAN CORPUSCULAR HEMOGLOBIN 29.6 pg 25.7-32.2 (BEAKER) (test code = 751) MEAN CORPUSCULAR HEMOGLOBIN CONC 32.8 GM/DL 32.3-36.5 (BEAKER) (test code = 752) RED CELL DISTRIBUTION WIDTH 13.8 % 11.6-14.4 (BEAKER) (test code = 412) PLATELET COUNT (BEAKER) (test 139 K/CU MM 150-450 L code = 756) MEAN PLATELET VOLUME (BEAKER) 10.6 fL 9.4-12.4 (test code = 754) NUCLEATED RED BLOOD CELLS 0 /100 WBC 0-0 (BEAKER) (test code = 413) NEUTROPHILS RELATIVE PERCENT 65 % (BEAKER) (test code = 429) LYMPHOCYTES RELATIVE PERCENT 19 % (BEAKER) (test code = 430) MONOCYTES RELATIVE PERCENT 11 % (BEAKER) (test code = 431) EOSINOPHILS RELATIVE PERCENT 5 % (BEAKER) (test code = 432) BASOPHILS RELATIVE PERCENT 1 % (BEAKER) (test code = 437) NEUTROPHILS ABSOLUTE COUNT 4.02 K/ L 1.78-5.38 (BEAKER) (test code = 670) LYMPHOCYTES ABSOLUTE COUNT 1.16 K/ L 1.32-3.57 L (BEAKER) (test code = 414) MONOCYTES ABSOLUTE COUNT (BEAKER) 0.68 K/ L 0.30-0.82 (test code = 415) EOSINOPHILS ABSOLUTE COUNT 0.29 K/ L 0.04-0.54 (BEAKER) (test code = 416) BASOPHILS ABSOLUTE COUNT (BEAKER) 0.03 K/ L 0.01-0.08 (test code = 417) IMMATURE GRANULOCYTES-RELATIVE 0 % 0-1 PERCENT (BEAKER) (test code = 2801) RAD, CHEST, 1 VIEW, NON [id number] 04:08:00Reason for exam:->COVIDShould this be performed at the bedside?->Yes [facility] : 1940 Sex: MFINAL REPORT Chest one view. Clinical history: COVID Comparison: C hest radiograph 02/24/2021. Technique: A single frontal view of the chest was obtained. Findings:Thepatient is status post median sternotomy.The cardiac silhouette is mildly enlarged, which may be dueto AP technique. The aorta is tortuous and atherosclerotic. There is mild diffuse interstitial prominence in the left hemithorax with mild volume loss with peripheral reticular and groundglass opacities. There is no pleural effusion or pneumothorax. There is no pulmonary edema. The osseous structures are unremarkable. Impression:Chronic interstitial lung disease. Superimposed pneumonia/pneumonitis cannot be entirely excluded. CT may be performed for further evaluation if clinical suspicion for COVID-19 COVED-19 pneumonia persists. Signed: Mary Musa Verified Date/Time: 03/14/2021 04:08:19 POCT-GLUCOSE [id number] 12:58:28 Test Item Value Reference Range Interpretation Comments POC-GLUCOSE METER 130 mg/dL 70-110 H : TESTED A T [facility] (BEAKER) (test code = [place], 1538) [id number]: Medical Dermatologist/Techni mei ID = [id number] for ALDO PASTRANA HEMOGLOBIN [id number] 08:47:58 Test Item Value Reference Range Interpretation Comments HEMOGLOBIN A1C (BEAKER) (test code = 6.4 % 4.3-6.1 H 368) BASIC METABOLIC [id number] 06:00:48 Test Item Value Reference Range Interpretation Comments SODIUM (BEAKER) 138 meq/L 136-145 (test code = 381) POTASSIUM (BEAKER) 3.8 meq/L 3.5-5.1 Specimen slightly (test code = 379) hemolyzed CHLORIDE (BEAKER) 108 meq/L 98-107 H (test code = 382) CO2 (BEAKER) (test 20 meq/L 22-29 L code = 355) BLOOD UREA NITROGEN 16 mg/dL 7-21 (BEAKER) (test code = 354) CREATININE (BEAKER) 0.79 mg/dL 0.57-1.25 Specimen slightly (test code = 358) hemolyzed GLUCOSE RANDOM 122 mg/dL 70-105 H (BEAKER) (test code = 652) CALCIUM (BEAKER) 8.3 mg/dL 8.4-10.2 L (test code = 697) EGFR (BEAKER) (test 94 mL/min/1.73 ESTIMA MIMI GFR IS code = 1092) sq m NOT ACCURATE CREATININE CLEARANCE IN PREDICTING GLOMERULAR FILTRATION RATE . ESTIMATED GFR I S NOT APPLICABLE FOR DIALYSIS PATIEN TS. Medical Dermatologist ID - DBCBC W/PLT COUNT & AUTO [id number] 04:01:55 Test Item Value Reference Range Interpretation Comments WHITE BLOOD CELL COUNT (BEAKER) 9.7 K/ L 3.5-10.5 (test code = 775) RED BLOOD CELL COUNT (BEAKER) 3.81 M/ L 4.63-6.08 L (test code = 761) HEMOGLOBIN (BEAKER) (test code = 11.3 GM/DL 13.7-17.5 L 410) HEMATOCRIT (BEAKER) (test code = 35.2 % 40.1-51.0 L 411) MEAN CORPUSCULAR VOLUME (BEAKER) 92.4 fL 79.0-92.2 H (test code = 753) MEAN CORPUSCULAR HEMOGLOBIN 29.7 pg 25.7-32.2 (BEAKER) (test code = 751) MEAN CORPUSCULAR HEMOGLOBIN CONC 32.1 GM/DL 32.3-36.5 L (BEAKER) (test code = 752) RED CELL DISTRIBUTION WIDTH 13.9 % 11.6-14.4 (BEAKER) (test code = 412) PLATELET COUNT (BEAKER) (test 152 K/CU MM 150-450 code = 756) MEAN PLATELET VOLUME (BEAKER) 10.8 fL 9.4-12.4 (test code = 754) NUCLEATED RED BLOOD CELLS 0 /100 WBC 0-0 (BEAKER) (test code = 413) NEUTROPHILS RELATIVE PERCENT 73 % (BEAKER) (test code = 429) LYMPHOCYTES RELATIVE PERCENT 16 % (BEAKER) (test code = 430) MONOCYTES RELATIVE PERCENT 10 % (BEAKER) (test code = 431) EOSINOPHILS RELATIVE PERCENT 0 % (BEAKER) (test code = 432) BASOPHILS RELATIVE PERCENT 0 % (BEAKER) (test code = 437) NEUTROPHILS ABSOLUTE COUNT 7.05 K/ L 1.78-5.38 H (BEAKER) (test code = 670) LYMPHOCYTES ABSOLUTE COUNT 1.58 K/ L 1.32-3.57 (BEAKER) (test code = 414) MONOCYTES ABSOLUTE COUNT (BEAKER) 0.98 K/ L 0.30-0.82 H (test code = 415) EOSINOPHILS ABSOLUTE COUNT 0.04 K/ L 0.04-0.54 (BEAKER) (test code = 416) BASOPHILS ABSOLUTE COUNT (BEAKER) 0.02 K/ L 0.01-0.08 (test code = 417) IMMATURE GRANULOCYTES-RELATIVE 0 % 0-1 PERCENT (BEAKER) (test code = 2801) POCT-GLUCOSE [id number] 18:14:42 Test Item Value Reference Range Interpretation Comments POC-GLUCOSE METER 134 mg/dL 70-110 H : TESTED Gideon Jensen [facility] 6720 (BEAKER) (test code = [place], 1538) [address]: Medical Dermatologist/Techni mei ID = [id number] for GAVIN WALKER POCT-GLUCOSE [id number] 12:13:11 Test Item Value Reference Range Interpretation Comments POC-GLUCOSE METER 126 mg/dL 70-110 H : Notified RN/MD: (GEOVANY) (test code = TESTED AT [facility] 6777 2370) [facility], [address]: Medical Dermatologist/Techni mei ID = [id number] for ERICA TIAN CT, BRAIN, WITHOUT [id number] 06:54:00Unlisted Reason for Exam - Click Yes and Enter Reason Below->No [facility] : 1940 Sex: MFINAL REPORT CT, BRAIN, WITHOUT CONTRAST CLINICAL INDICATION: Hemo rrhage due to internal orthopedic prosthetic devices, implant or graft COMPARISON: 7 hours prior TECHNIQUE: Noncontrast axial CT imaging of the brain and skull. DOSE REDUCTION: Dose modulation, iterative reconstruction, and/or weight-based adjustment of the mA/kV was utilized to reduce the radiationdose to as low as reasonably achievable. IMPRESSION: Interval decompression of subdural collection with decreased volume (18 mm in greatest transverse dimension compared to 30 mm prior). Hyperattenuating material suggesting interval rebleeding but without significant volume expansion. Moderate pneumocephalus is present. A subgaleal drain is been placed. Midline shift at the level of the foramen of Monro has improved to 5 mm leftward compared to 11 mm prior. No new ischemic or hemorrhagic parenchymal injury is identified. Signed: JR Cifuentes Robert MDReport Verified Date/Time: 02/26/2021 06:54:39 Reading Location: [facility] Radiology Reading Room POCT-GLUCOSE [id number] 06:34:34 Test Item Value Reference Range Interpretation Comments POC-GLUCOSE METER 130 mg/dL 70-110 H : TESTED A T [facility] 6720 (BEAKER) (test code = [place], 1538) [id number]: Medical Dermatologist/Techni mei ID = [id number] for DILMA BLANCO [id number] 04:09:05 Test Item Value Reference Range Interpretation Comments PHOSPHORUS (BEAKER) (test code = 3.3 mg/dL 2.3-4.7 604) Medical Dermatologist ID - ERNESTINA GBASIC METABOLIC [id number] 04:09:04 Test Item Value Reference Range Interpretation Comments SODIUM (BEAKER) 138 meq/L 136-145 (test code = 381) POTASSIUM (BEAKER) 4.3 meq/L 3.5-5.1 (test code = 379) CHLORIDE (BEAKER) 109 meq/L 98-107 H (test code = 382) CO2 (BEAKER) (test 22 meq/L 22-29 code = 355) BLOOD UREA NITROGEN 13 mg/dL 7-21 (BEAKER) (test code = 354) CREATININE (BEAKER) 0.77 mg/dL 0.57-1.25 (test code = 358) GLUCOSE RANDOM 159 mg/dL 70-105 H (BEAKER) (test code = 652) CALCIUM (BEAKER) 8.6 mg/dL 8.4-10.2 (test code = 697) EGFR (BEAKER) (test 97 mL/min/1.73 ESTIMA MIMI GFR IS code = 1092) sq m NOT ACCURATE CREATININE CLEARANCE IN PREDICTING GLOMERULAR FILTRATION RATE . ESTIMATED GFR I S NOT APPLICABLE FOR DIALYSIS PATIEN TS. Medical Dermatologist ID - ERNESTINA [id number] 04:09:04 Test Item Value Reference Range Interpretation Comments MAGNESIUM (BEAKER) (test code = 2.3 mg/dL 1.6-2.6 627) Medical Dermatologist ID - ERNESTINA GCBC W/PLT COUNT & AUTO [id number] 03:44:36 Test Item Value Reference Range Interpretation Comments WHITE BLOOD CELL COUNT (BEAKER) 11.7 K/ L 3.5-10.5 H (test code = 775) RED BLOOD CELL COUNT (BEAKER) 4.02 M/ L 4.63-6.08 L (test code = 761) HEMOGLOBIN (BEAKER) (test code = 11.8 GM/DL 13.7-17.5 L 410) HEMATOCRIT (BEAKER) (test code = 36.8 % 40.1-51.0 L 411) MEAN CORPUSCULAR VOLUME (BEAKER) 91.5 fL 79.0-92.2 (test code = 753) MEAN CORPUSCULAR HEMOGLOBIN 29.4 pg 25.7-32.2 (BEAKER) (test code = 751) MEAN CORPUSCULAR HEMOGLOBIN CONC 32.1 GM/DL 32.3-36.5 L (BEAKER) (test code = 752) RED CELL DISTRIBUTION WIDTH 13.4 % 11.6-14.4 (BEAKER) (test code = 412) PLATELET COUNT (BEAKER) (test 166 K/CU MM 150-450 code = 756) MEAN PLATELET VOLUME (BEAKER) 10.6 fL 9.4-12.4 (test code = 754) NUCLEATED RED BLOOD CELLS 0 /100 WBC 0-0 (BEAKER) (test code = 413) NEUTROPHILS RELATIVE PERCENT 88 % (BEAKER) (test code = 429) LYMPHOCYTES RELATIVE PERCENT 6 % (BEAKER) (test code = 430) MONOCYTES RELATIVE PERCENT 6 % (BEAKER) (test code = 431) EOSINOPHILS RELATIVE PERCENT 0 % (BEAKER) (test code = 432) BASOPHILS RELATIVE PERCENT 0 % (BEAKER) (test code = 437) NEUTROPHILS ABSOLUTE COUNT 10.26 K/ L 1.78-5.38 H (BEAKER) (test code = 670) LYMPHOCYTES ABSOLUTE COUNT 0.75 K/ L 1.32-3.57 L (BEAKER) (test code = 414) MONOCYTES ABSOLUTE COUNT (BEAKER) 0.66 K/ L 0.30-0.82 (test code = 415) EOSINOPHILS ABSOLUTE COUNT 0.00 K/ L 0.04-0.54 L (BEAKER) (test code = 416) BASOPHILS ABSOLUTE COUNT (BEAKER) 0.01 K/ L 0.01-0.08 (test code = 417) IMMATURE GRANULOCYTES-RELATIVE 0 % 0-1 PERCENT (BEAKER) (test code = 2801) POCT-GLUCOSE [id number] 00:06:22 Test Item Value Reference Range Interpretation Comments POC-GLUCOSE METER 146 mg/dL 70-110 H : TESTED A T [facility] (GEOVANY) (test code = ROBERT Billings [facility], 1538) [id number]: Medical Dermatologist/Techni mei ID = [id number] for DILMA BLANCO POCT-GLUCOSE [id number] 12:07:35 Test Item Value Reference Range Interpretation Comments POC-GLUCOSE METER 126 mg/dL 70-110 H : Notified RN/MD: (GEOVANY) (test code = TESTED AT [facility] 1538) [facility], [address]: Medical Dermatologist/Techni mei ID = [id number] for ERICA TIAN SARS-COV2/RT-PCR ([facility])2021-02-25 07:50:40 Test Item Value Reference Range Interpretation Comments SARS-COV2/RT-PCR Negative Negative The SARS-Co V-2 target (test code = nucleic acids a re not [id number]) detected in thi s specimen. Negative result s do not preclude SARS-C oV-2 infection and s hould not be used as the rita e basis for patient managem ent decisions. Nega tive results must be combine d with clinical observ ations, patient history , and epidemiological information. A false negativ e result may occur if a spec imen is improperly abdon ected, transported or handled. This SARS CoV-2 test is a rapid, real-osei e RT-PCR test intended for th e qualitative detection of nu cleic acid from SARS-CoV-2 in a nasopharyngeal swab specimen collected from individuals suspected of CO VID-19 by their healthcar e provider. This test has been authorized by FDA under an EUA for use by authorized laboratories. This test is only authorized for the duration of the declaration that circumstances exist justifying the authorization of emergency use of in vitro diagnostic tests for detection and/or diagnosis of COVID-19 under Section 564(b)(1) of the Federal Food, Drug and Cosmetic Act, 21 U.S.C. 360bbb- 3(b)(1), unless the authorization is terminated or revoked sooner. Fact Sheet for Healthcare Providers: https://www.[employer]/Documents/Xpert%20Xpress%20SARS%20CoV-2/Fact%20Sheets/302-3802%20SARS-COV -2%20HEALTHCARE%20PROVIDERS%20FACT%20SHEET.pdf Fact Sheet for Healthcare Patients: https://www.[employer]/Documents/Xpert %20Xpress%20SARS%20CoV-2/Fact%20Sheets/302-3801%56LJND-APW-2%20PATIENT%20FACT%20 SHEET.pdfCT, BRAIN, WITHOUT [id number] 07:28:00Neurosurgical evaluation preoperativelyReason for exam:->Intracranial hemorrhage [facility]ENTER[facility]: REMA KUO : 1940 Sex: MFINAL REPORT CT, BRAIN, WITHOUT CONTRAST CLINICAL INDICATION: Unli sted Reason for ExamIntracranial hemorrhage COMPARISON: None currently available TECHNIQUE: Noncontrast axial CT imaging of the brain and skull. DOSE REDUCTION: Dose modulation, iterative reconstruction, and/or weight-based adjustment of the mA/kV was utilized to reduce the radiation dose to as low as reasonably achievable. FINDINGS:Large epidural collection with layering hematocrit level measuringup to 3 cm in greatest dimension laterally. Mass effect deforms the right frontal lobe, creating 11 mm leftward midline shift at the level of foramen of Monro and subfalcine herniation of the right cingulate gyrus area remaining brain parenchyma is unremarkable. Osseous structures are intact. Intracranial hemorrhagic findings were relayed to neurology ICU staff at 0728 hours on February 25, 2021. Signed: JR Cifuentes Robert MDReport Verified Date/Time: 02/25/2021 07:28:24 Reading Location: [facility] Radiology Reading Room POCT-GLUCOSE [id number] 06:01:17 Test Item Value Reference Range Interpretation Comments POC-GLUCOSE METER 102 mg/dL 70-110 : TESTED Gideon Jensen [facility] (BEAKER) (test code [facility], = 1538) [id number]: Medical Dermatologist/Techni mei ID = [id number] for Pa Naranjo [id number] 04:07:22 Test Item Value Reference Range Interpretation Comments MAGNESIUM (BEAKER) (test code = 2.1 mg/dL 1.6-2.6 627) Medical Dermatologist ID - ISAK [id number] 04:07:22 Test Item Value Reference Range Interpretation Comments PHOSPHORUS (BEAKER) (test code = 2.9 mg/dL 2.3-4.7 604) Medical Dermatologist ID - ISAK MBASIC METABOLIC [id number] 04:07:21 Test Item Value Reference Range Interpretation Comments SODIUM (BEAKER) 140 meq/L 136-145 (test code = 381) POTASSIUM (BEAKER) 3.8 meq/L 3.5-5.1 (test code = 379) CHLORIDE (BEAKER) 107 meq/L 98-107 (test code = 382) CO2 (BEAKER) (test 26 meq/L 22-29 code = 355) BLOOD UREA NITROGEN 10 mg/dL 7-21 (BEAKER) (test code = 354) CREATININE (BEAKER) 0.73 mg/dL 0.57-1.25 (test code = 358) GLUCOSE RANDOM 117 mg/dL 70-105 H (BEAKER) (test code = 652) CALCIUM (BEAKER) 9.2 mg/dL 8.4-10.2 (test code = 697) EGFR (BEAKER) (test 103 mL/min/1.73 ESTIM ATED GFR IS code = 1092) sq m NOT ACCURATE CREATININE CLEARANCE IN PREDICTING GLOMERULAR FILTRATION RATE . ESTIMATED GFR I S NOT APPLICABLE FOR DIALYSIS PATIEN TS. Medical Dermatologist ID - ISAK MCBC (HEMOGRAM ONLY)2021-02-25 03:47:50 Test Item Value Reference Range Interpretation Comments WHITE BLOOD CELL COUNT (BEAKER) 7.4 K/ L 3.5-10.5 (test code = 775) RED BLOOD CELL COUNT (BEAKER) 4.43 M/ L 4.63-6.08 L (test code = 761) HEMOGLOBIN (BEAKER) (test code = 13.0 GM/DL 13.7-17.5 L 410) HEMATOCRIT (BEAKER) (test code = 40.8 % 40.1-51.0 411) MEAN CORPUSCULAR VOLUME (BEAKER) 92.1 fL 79.0-92.2 (test code = 753) MEAN CORPUSCULAR HEMOGLOBIN 29.3 pg 25.7-32.2 (BEAKER) (test code = 751) MEAN CORPUSCULAR HEMOGLOBIN CONC 31.9 GM/DL 32.3-36.5 L (BEAKER) (test code = 752) RED CELL DISTRIBUTION WIDTH 13.4 % 11.6-14.4 (BEAKER) (test code = 412) PLATELET COUNT (BEAKER) (test 138 K/CU MM 150-450 L code = 756) MEAN PLATELET VOLUME (BEAKER) 10.4 fL 9.4-12.4 (test code = 754) NUCLEATED RED BLOOD CELLS 0 /100 WBC 0-0 (BEAKER) (test code = 413) RAD, CHEST, 1 VIEW, NON [id number] 02:13:00Reason for exam:- >weaknessShould this be performed at the bedside?->[facility] 1940 Sex: MFINAL REPORT History: Weakness. Comparison: 09/04/2018 Findings: A single view of the chest is submitted. The cardiac silhouette is within normal limits for size. There is atherosclerotic calcification of the tortuous aorta. Sternotomy wires are in place. There is hazy opacification of the left hemithorax, which appears similar to previous and suggests some combination of atelectasis and scarring. Pneumonitis should be excluded clinically. There is no pneumothorax, evidence of overt pulmonary edema or acute bony abnormality. Signed: Cristopher Metz MDReport Verified Date/Time: 02/25/2021 02:13:07 POCT- GLUCOSE [id number] 01:15:35 Test Item Value Reference Range Interpretation Comments POC-GLUCOSE METER 108 mg/dL 70-110 : TESTED A T [facility] (BEAKER) (test code [facility], = 1538) [id number]: Medical Dermatologist/Techni mei ID = [id number] for Pa Naranjo [id number] 22:37:00 Test Item Value Reference Range Interpretation Comments PROCALCITONIN (BEAKER) (test code = < ng/mL <0.05 3036) SEPSIS RISK (ng/mL)Low: 0.05-0.50Intermediate: 0.51-2.00High: >=2.01RAPID DRUG SCREEN, [id number] 22:15:49 Test Item Value Reference Range Interpretation Comments BARBITURATE URINE (BEAKER) (test Negative Negative code = 725) BENZODIAZEPINE SCREEN URINE (BEAKER) Negative Negative (test code = 726) COCAINE (METAB.) SCREEN (BEAKER) Negative Negative (test code = 1164) METHADONE SCREEN (BEAKER) (test code Negative Negative = 1436) OPIATE SCREEN URINE (BEAKER) (test Negative Negative code = 734) CANNABINOID SCREEN URINE (BEAKER) Negative Negative (test code = 727) AMPH/METHAMPH SCREEN (BEAKER) (test Negative Negative code = 1438) PHENCYCLIDINE SCREEN URINE (BEAKER) Negative Negative (test code = 608) PH UA (BEAKER) (test code = 467) 7.0 5.0-8.0 DRUG CUTOFF CONC.Cocaine 300 ng/mL Cannabinoid 50 ng/mLBenzodiazepine 200 ng/mLBarbiturate 200 ng/mLPhencyclidine 25 ng/mLOpiate 300 ng/mLMethadone 300 ng/mLAmphetamine/ 1000 ng/mL MethamphetamineThis assay provides an unconfirmed qualitative test result for the clinical management of patients in emergency situations. Chain of custody not maintained. Some bffq-scg-kaifryp medications, as well as adulterants, may cause inaccurate results. Clinical correlation should be applied. A more comprehensivedrug screen or confirmation of a detected drug may be performed upon request.Medical Dermatologist ID - BSHEPATIC FUNCTION [id number] 22:14:58 Test Item Value Reference Range Interpretation Comments TOTAL PROTEIN (BEAKER) (test code = 7.4 gm/dL 6.0-8.3 770) ALBUMIN (BEAKER) (test code = 1145) 3.9 g/dL 3.5-5.0 BILIRUBIN TOTAL (BEAKER) (test code 0.8 mg/dL 0.2-1.2 = 377) BILIRUBIN DIRECT (BEAKER) (test 0.5 mg/dL 0.1-0.5 code = 706) ALKALINE PHOSPHATASE (BEAKER) (test 108 U/L 40-150 code = 346) AST (SGOT) (BEAKER) (test code = 17 U/L 5-34 353) ALT (SGPT) (BEAKER) (test code = 13 U/L 6-55 347) Medical Dermatologist ID - [id number] 22:08:14 Test Item Value Reference Range Interpretation Comments PARTIAL THROMBOPLASTIN TIME 40.8 seconds 22.5-36.0 H (BEAKER) (test code = 760) PROTHROMBIN TIME/[id number] 22:07:16 Test Item Value Reference Range Interpretation Comments PROTIME (BEAKER) 15.3 seconds 11.9-14.2 H (test code = 759) INR (BEAKER) (test 1.23 See_Comment [Automat ed message] code = 370) The system [employer]Champ generated this result transmitted ref erence range: <=5.90. The reference range was not used to int erpret this result as normal/abnormal . RECOMMENDED COUMADIN/WARFARIN INR THERAPY RANGESSTANDARD DOSE: 2.0 - 3.0 Includes: PROPHYLAXIS forvenous thrombosis, systemic embolization; TREATMENT for venous thrombosis and/or pulmonary embolus.HIGH RISK: Target INR is 2.5-3.5 for patients with mechanical heart valves.LACTIC ACID, [id number] 22:04:34 Test Item Value Reference Range Interpretation Comments LACTATE BLOOD ARTERIAL (2) 1.1 mmol/L 0.5-2.2 (BEAKER) (test code = 2874) Medical Dermatologist ID - BSURINALYSIS [id number] 21:54:39 Test Item Value Reference Range Interpretation Comments RBC UA (BEAKER) (test code = 519) 5 /HPF WBC UA (BEAKER) (test code = 520) < /HPF BACTERIA (BEAKER) (test code = 517) None Seen CRYSTALS, URINE (BEAKER) (test code None Seen = 1521) Medical Dermatologist ID - techURINALYSIS WITH MICROSCOPIC IF [id number] 21:52:51 Test Item Value Reference Range Interpretation Comments COLOR (BEAKER) (test code = 470) Yellow CLARITY (BEAKER) (test code = 469) Clear SPECIFIC GRAVITY UA (BEAKER) (test 1.015 1.001-1.035 code = 468) PH UA (BEAKER) (test code = 467) 7.0 5.0-8.0 PROTEIN UA (BEAKER) (test code = 50 mg/dL Negative A 464) GLUCOSE UA (BEAKER) (test code = Negative Negative 365) KETONES UA (BEAKER) (test code = Negative Negative 371) BILIRUBIN UA (BEAKER) (test code = Negative Negative 462) BLOOD UA (BEAKER) (test code = 461) Small Negative A NITRITE UA (BEAKER) (test code = Negative Negative 465) LEUKOCYTE ESTERASE UA (BEAKER) Negative Negative (test code = 466) UROBILINOGEN UA (BEAKER) (test code 0.2 mg/dL 0.2-1.0 = 463) SOURCE(BEAKER) (test code = 2795) Medical Dermatologist ID - [auto]CT, CTA [id number] 17:40:00Reason for Exam:->aaa Addendum BeginsREPORT STATUS:A Addendum: Several small cysts are seen in the left lung base. No free intraperitoneal air. I otherwise agree with the previously described non vascular findings. End of addendum. Signed: Armando Proctor MDReport Verified Date/Time: 03/15/2019 17:40:34 Reading [facility] Reading RoomAddendum EndsFINAL REPORT CT angiography of the abdominal aorta and pelvic arteries, 15 March 2019 INDICATION: This is a 78 year old male with diagnosis of abdominal aortic aneurysm presents for assessment. Per [facility], patient is said to have right renal [...] the dynamic passage of intravenous contrast material. Multi- planar 3-D volume-rendering reconstruction was performed using an independent workstation interactively by the interpreting physician as well as the 3-D specialist for optimal visualisation of the abdominal aorta, pelvic arteries, a nd its proximal branches. Please refer to the contrast sheet scanned in the [facility] system for the amount and route of [...] there is no dissection, intramural hematoma, or containedrupture. Quantitative dimensions of the abdominal aorta are as follows: 2.2 cm at the mesenteric segment; 2.4 cm at the renal segment: 2.2 cm at the infrarenal level and approximately 2.8 cm immediately aortic bifurcation. The coeliac axis is widely patent giving rise to the hepatic and splenic arteries. Nonobstructive calcification is seen along the course of the splenic artery. The SMA is widelypatent proximally. However, there is circumferential calcification seen [...] iliac artery is approximately 7 cm, and computer help desk representative dimension is approximately 2.2 x 2.2 cm. The length of the right common iliac artery is approximately 6.3 cm, and maximum diameter measures approximately 27.5 x 26.7 mm, with minimal intraluminal thrombus present. Please See snapshotfor details. No stenosis identified the left and the right common unit arteries. Thereafter, the external the coeliac arteries, and the common femoral arteries and the visualised left and right SFA arepatent with nonobstructive calcification identified. The left and [...] seen and no hydronephrosis or perirenal fluid abdon ection is identified. A renal cyst is identified the posterior aspect of the left kidney, at image 61, measures 2.7 cm in diameter. In the right kidney, cortical scarring is identified in the lower pole, that could represent reduction in flow to the lower branch of the right renal artery as described a ronnie. Bowel is not well assessed by CT [...] identified at L3/L4/L5 level, , bilaterally. CONCLUSIONS: 1.Diffuse atherosclerosis identified abdominal aorta with no ectasia or aneurysmal dilation is seen. There is no evidence of acute aortic pathology, specifically, there is no dissection, intramural hematoma, or contained rupture. Quantitative dimension of the abdominal aorta are as noted. 2. Dilationis identified in the left and the right [...] dilation is approximately 4.5 cm. At the distalright renal artery tapers in calibre and branches [...] dictated regarding the non-vascular findings by the Research Food Technologist Radiologist. Signed: Bill Fountainepwiliam Verified Date/Time: 03/15/2019 11:50:43 [id number] 10:21:00 Test Item Value Reference Range Interpretation Comments POC-CREATININE 0.9 mg/dL 0.6-1.3 TESTED AT [facility] ([facility]) (test [place] code = 1859) [address] POC-EGFR ([facility]) 82 mL/min/1.73M2 (test code = 1860) TISSUE [id number] 17:04:00Surgical Pathology Report Case: [id number] Authorizing Provider: Danial Smith, Collected: 10/01/2018 0904 Ordering Location: [facility] Received: 10/01/2018 1008 PERIOPERATIVE SERVICES Pathologist: Zeferino Warner MD Specimen: Plaque, RIGHT CAROTID PLAQUE/ ENDARTERECTOMY ARTERY, RIGHT CAROTID, ENDARTERECTOMY:CALCIFIC ATHEROSCLEROTIC PLAQUE Signing Pathologist Direct Phone Line: [phone] signed by Zeferino Warner MD on 10/04/2018 at 5:04 [id number]; [id number]. Right carotid plaque/endarterectomyThe specimen is received in formalin and consists of a portion of cylindrical c alcified tissue measuring 4.5 x 0.9 x 0.9 cm. Manager Of Change sections are in one cassette for decalcification. CB/plPerformedPLATELET AGGREGATION: FUNCTION [id number] 14:42:00 Test Item Value Reference Range Interpretation Comments WEAK ADP 56 % 60-91 L RESULT(BEAKER) (test code = 2135) PLATELET FUNCTION 50-59% indicates mild SCREEN INTERP platelet dysfunction (BEAKER) (test code = 2173) [id number] Genevieve Lin MD (BEAKER) (test code = (electronic signature) 6152) PLATELET COUNT AGG 159 K/CU MM 150-450 (BEAKER) (test code = 2656) Platelet Function Screen results may be falsely low with platelet counts<100,000/cu mm.for patients on clopidogrel in past two weeksPOTASSIUM- STAT [id number] 12:04:00 Test Item Value Reference Range Interpretation Comments POTASSIUM (BEAKER) (test code = 4.0 meq/L 3.6-5.5 379) GLUCOSE-STAT [id number] 12:04:00 Test Item Value Reference Range Interpretation Comments GLUCOSE RANDOM (BEAKER) (test code 139 mg/dL 70-110 H = 652) HGB/HCT (H&H) - STAT [id number] 12:04:00 Test Item Value Reference Range Interpretation Comments HEMOGLOBIN (BEAKER) (test code = 10.5 g/dL 13.0-16.8 L 410) HEMATOCRIT (BEAKER) (test code = 31.0 % 40.0-50.0 L 411) [id number] 06:25:00 Test Item Value Reference Range Interpretation Comments PROTIME (BEAKER) (test code = 14.5 seconds 11.9-14.2 H 759) INR (BEAKER) (test code = 370) 1.2 <=5.9 PARTIAL THROMBOPLASTIN TIME 48.4 seconds 22.5-36.0 H (BEAKER) (test code = 760) Effective 08/15/2018: PT Reference Range ChangeNew: 11.9-14.2 Previous: 11.7- 14.7RECOMMENDED COUMADIN/WARFARIN INR THERAPY RANGESSTANDARD DOSE: 2.0-3.0 Includes: PROPHYLAXIS for venous thrombosis, systemic embolization; TREATMENT for venous thrombosis and/or pulmonary embolus.HIGH RISK: Target INR is2.5-3.5 for patients wiht mechanical heart valves.POCT-GLUCOSE [id number] 06:02:00 Test Item Value Reference Range Interpretation Comments POC-GLUCOSE METER 111 mg/dL 70-110 H TESTED AT [facility] 6720 (BEAKER) (test code = ROBERT [place] 1538) [address] [id number] 12:11:00 Test Item Value Reference Range Interpretation Comments PARTIAL THROMBOPLASTIN TIME 67.7 seconds 22.5-36.0 H (BEAKER) (test code = 760) PROTHROMBIN TIME/[id number] 12:09:00 Test Item Value Reference Range Interpretation Comments PROTIME (BEAKER) (test code = 15.3 seconds 11.9-14.2 H 759) INR (BEAKER) (test code = 370) 1.3 <=5.9 Effective 08/15/2018: PT Reference Range ChangeNew: 11.9-14.2 Previous: 11.7- 14.7RECOMMENDED COUMADIN/WARFARIN INR THERAPY RANGESSTANDARD DOSE: 2.0-3.0 Includes: PROPHYLAXIS for venous thrombosis, systemic embolization; TREATMENT for venous thrombosis and/or pulmonary embolus.HIGH RISK: Target INR is2.5-3.5 for patients wiht mechanical heart valves.BASIC METABOLIC [id number] 12:09:00 Test Item Value Reference Range Interpretation Comments SODIUM (BEAKER) 138 meq/L 136-145 (test code = 381) POTASSIUM (BEAKER) 4.5 meq/L 3.5-5.1 (test code = 379) CHLORIDE (BEAKER) 106 meq/L 98-107 (test code = 382) CO2 (BEAKER) (test 25 meq/L code = 355) BLOOD UREA NITROGEN 21 [...] PATIEN TS. CBC W/PLT COUNT & AUTO [id number] 11:53:00 Test Item Value Reference Range Interpretation [...] PERCENT (BEAKER) (test code = 2801) TISSUE [id number] 14:34:00Surgical Pathology Report Case: [id number] Authorizing Provider: Danial Smith, Collected: 09/12/2018 0910 Ordering Location: [facility] Received: 09/12/2018 1105 PERIOPERATIVE SERVICES Pathologist: Zeferino Warner MD Specimen: Plaque, LEFT CAROTID ARTERY PLAQUE ARTERY, LEFT CAROTID, ENDARTERECTOMY:CALCIFIC ATHEROSCLEROTIC PLAQUE WITH INTRAPLAQUE HEMORRHAGE Signing PathologistDirect Phone Line: [phone] signed by Zeferino Warner MD on 09/18/2018 at 2:34 [id number]; [id number] and postop diagnosis: left carotid stenosisLeft carotid artery plaqueReceived in saline labeled with the patient's name, accession number and "plaque" is a bifurcated, previously incised portion of yellow plaque measuring 3.2 x 1.0 x 0.5 cm. The specimen is serially sectioned to reveal focal areas of calcification measuring up to 0.3 cm in thickness. There are also focal areas of hemorrhage and necrosis. Manager Of Change sections are submitted in A1, following decalcification. CG/pl PerformedTSH/FREE T4 IF [id number] 05:37:00 Test Item Value Reference Range Interpretation Comments THYROID STIMULATING HORMONE 0.76 uIU/mL 0.35-4.94 (BEAKER) (test code = 772) TROPONIN [id number] 05:01:00 Test Item Value Reference Range Interpretation [...] failure, acidosis, acute neurological disease, and persistent tachyarrhythmia.[id number] 04:53:00 Test Item Value Reference Range Interpretation Comments MAGNESIUM (BEAKER) (test code = 2.0 mg/dL 1.6-2.6 627) BASIC METABOLIC [id number] 04:53:00 Test Item Value Reference Range Interpretation [...] S NOT APPLICABLE FOR DIALYSIS PATIEN TS. PT/[id number] 04:53:00 Test Item Value Reference Range Interpretation [...] (test code = 413) CT, BRAIN, WITHOUT [id number] 18:45:00FINAL REPORT CT, BRAIN, WITHOUT CONTRAST CLINICAL [...] examination is recommended for further characterization. Signed:Vin Chapa MDReport Verified Date/Time: 09/13/2018 18:45:50 Reading Location: [facility] C013V Neuro Reading Room TROPONIN [id number] 16:04:00 Test Item Value Reference Range Interpretation [...] acidosis, acute neurological disease, and persistent tachyarrhythmia.TROPONIN [id number] 10:03:00 Test Item Value Reference Range Interpretation [...] WBC 0-0 (BEAKER) (test code = 413) [id number] 06:09:00 Test Item Value Reference Range Interpretation Comments MAGNESIUM (BEAKER) (test code = 1.7 mg/dL 1.6-2.6 627) BASIC METABOLIC [id number] 06:09:00 Test Item Value Reference Range Interpretation [...] NOT APPLICABLE FOR DIALYSIS PATIEN TS. TROPONIN [id number] 06:02:00 Test Item Value Reference Range Interpretation [...] failure, acidosis, acute neurological disease, and persistent tachyarrhythmia.PT/[id number] 05:45:00 Test Item Value Reference Range Interpretation Comments PROTIME ([facility]) (test code = 14.4 seconds 11.9-14.2 H 759) INR ([facility]) (test code = 370) 1.2 <=5.9 PARTIAL THROMBOPLASTIN TIME 50.1 seconds 22.5-36.0 H (AdStageAKER) (test code = 760) Effective 08/15/2018: PT Reference Range ChangeNew: 11.9-14.2 Previous: 11.7- 14.7RECOMMENDED COUMADIN/WARFARIN INR THERAPY RANGESSTANDARD DOSE: 2.0-3.0 Includes: PROPHYLAXIS for venous thrombosis, systemic embolization; TREATMENT for venous thrombosis and/or pulmonary embolus.HIGH RISK: Target INR is2.5-3.5 for patients wiht mechanical heart valves.PLATELET AGGREGATION: FUNCTION SCREEN 2018-09-12 15:58:00 Test Item Value Reference Range Interpretation Comments WEAK ADP 87 % 60-91 RESULT([facility]) (test code = 2135) PLATELET FUNCTION 60-100% indicates SCREEN INTERP (AdStageAKER) normal platelet (test code = 2173) function [id number] Genevieve Lin MD ([facility]) (test code = (electronic signature) 3547) PLATELET COUNT AGG 174 K/CU MM 150-450 (AdStageAKER) (test code = 5887) Platelet Function Screen results may be falsely low with platelet counts<100,000/cu mm.for patients on clopidogrel in past two weeksfor patients on clopidogrel in past two weeksfor patients on clopidogrel in past two weeksBASIC METABOLIC [id number] 10:47:00 Test Item Value Reference Range Interpretation [...] NOT APPLICABLE FOR DIALYSIS PATIEN TS. PROTHROMBIN TIME/[id number] 10:27:00 Test Item Value Reference Range Interpretation [...] mechanical heart valves.CBC W/PLT COUNT & AUTO [id number] 10:19:00 Test Item Value Reference Range Interpretation [...] (BEAKER) (test code = 2801) BLOOD GAS, [id number] 10:15:00 Test Item Value Reference Range Interpretation [...] code = 381) 141 meq/L 135-148 POTASSIUM-STAT [id number] 08:48:00 Test Item Value Reference Range Interpretation Comments POTASSIUM (BEAKER) (test code = 3.7 meq/L 3.6-5.5 379) BLOOD GAS, [id number] 08:48:00 Test Item Value Reference Range Interpretation [...] (test code = 1819) 100.0 % GLUCOSE-STAT [id number] 08:48:00 Test Item Value Reference Range Interpretation Comments GLUCOSE RANDOM (BEAKER) (test code 117 mg/dL 70-110 H = 652) HGB/HCT (H&H) - STAT [id number] 08:48:00 Test Item Value Reference Range Interpretation Comments HEMOGLOBIN (BEAKER) (test code = 11.1 g/dL 13.0-16.8 L 410) HEMATOCRIT (BEAKER) (test code = 33.0 % 40.0-50.0 L 411) CALCIUM, [id number] 08:48:00 Test Item Value Reference Range Interpretation Comments CALCIUM IONIZED (BEAKER) (test 1.11 mmol/L 1.12-1.27 L code = 698) PH, BLOOD (BEAKER) (test code = 7.40 1810) BASIC METABOLIC [id number] 06:59:00 Test Item Value Reference Range Interpretation [...] S NOT APPLICABLE FOR DIALYSIS PATIEN TS. [id number] 06:46:00 Test Item Value Reference Range Interpretation Comments PROTIME (BEAKER) (test code = 13.9 seconds 11.9-14.2 759) INR (BEAKER) (test code = 370) 1.1 <=5.9 PARTIAL THROMBOPLASTIN TIME 51.8 seconds 22.5-36.0 H (BEAKER) (test code = 760) Effective 08/15/2018: PT Reference Range ChangeNew: 11.9-14.2 Previous: 11.7- 14.7RECOMMENDED COUMADIN/WARFARIN INR THERAPY RANGESSTANDARD DOSE: 2.0-3.0 Includes: PROPHYLAXIS for venous thrombosis, systemic embolization; TREATMENT for venous thrombosis and/or pulmonary embolus.HIGH RISK: Target INR is2.5-3.5 for patients wiht mechanical heart valves.PROTHROMBIN [id number] 06:45:00 Test Item Value Reference Range Interpretation Comments PROTIME (GEOVANY) (test code = 13.9 seconds 11.9-14.2 759) INR (GEOVANY) (test code = 370) 1.1 <=5.9 Effective 08/15/2018: PT Reference Range ChangeNew: 11.9-14.2 Previous: 11.7- 14.7RECOMMENDED COUMADIN/WARFARIN INR THERAPY RANGESSTANDARD DOSE: 2.0-3.0 Includes: PROPHYLAXIS for venous thrombosis, systemic embolization; TREATMENT for venous thrombosis and/or pulmonary embolus.HIGH RISK: Target INR is2.5-3.5 for patients wiht mechanical heart valves.POCT-GLUCOSE [id number] 06:24:00 Test Item Value Reference Range Interpretation Comments POC-GLUCOSE METER 117 mg/dL 70-110 H TESTED AT [facility] 6720 (GE[place]) (test code = [place] 1538) [address] RAD, CHEST, 2 [id number] 13:32:00Reason for exam:->preop Should this be performed at the bedside?->YesFINAL REPORT PA and Lateral views of the chest dated 09/04/2018 Clinical information: preop Comment: Heart is in upper limits of normal in size. There is prior sternotomy. Pulmon adam vasculature is unremarkable. Interstitial pulmonary disease is seen on the left suggestive of vascular congestion, pneumonitis, or chronic changes. There is volume loss on the left with shifting heart and mediastinum ipsilaterally. The right lungs clear. IMPRESSION: Nonspecific interstitial pulmonary disease on the left favor chronic changes. Signed: Derik Odom MDReport Verified Date/Time: 09/04/2018 13:32:54 Reading Location: [address] Consult Reading Room CBC W/PLT COUNT & AUTO [id number] 12:57:00 Test Item Value Reference Range Interpretation [...]
[2021-03-16 08:18] LABS: Absolute Lymphocytes (CBC) 0.8 K/uL (0.7-4.9); Hematocrit 38.7 % (39.6-49.0); Lymphocytes % 12.1 % (15.3-44.8); MPV 8.5 fL (7.6-11.3); RBC Red Blood Cell Count 4.29 M/uL (4.33-5.43)
[2021-03-16 08:21] LABS: Protime INR 0.99
[2021-03-16 08:38] LABS: ALT/SGPT 22 U/L (12-78); AST/SGOT 15 U/L (15-37); Albumin 3.4 g/dL (3.4-5.0); Alkaline Phosphatase 110 U/L (45-117); BUN Blood Urea Nitrogen 14 mg/dL (7-18); Bicarbonate 26 mmol/L (21-32); Bilirubin Direct 0.2 mg/dL (0-0.2); Bilirubin Total 0.6 mg/dL (0.2-1.0); Glucose Level 125 mg/dL (74-106); Magnesium 2.3 mg/dL (1.8-2.4); NT PRO-BNP 103 pg/mL (<450); Potassium 3.7 mmol/L (3.5-5.1); Protein, Total 7.8 g/dL (6.4-8.2); Sodium Level 139 mmol/L (136-145); Troponin (Emerg Dept Use Only) < 0.02 ng/mL (0.0-0.045)
--- NOTE | 2021-03-16 08:45 | RAD REPORT ---
EXAM DESCRIPTION: RAD - Chest Single View - 03/16/2021 7:56 am CLINICAL HISTORY: Weakness Chest pain. COMPARISON: Chest Single View dated 03/13/2021; Chest Single View dated 02/24/2021; Chest Pa And Lat (2 Views) dated 02/18/2019; Chest Pa And Lat (2 Views) dated 11/21/2018 FINDINGS: Portable technique limits examination quality. Left-sided lung opacification appears essentially unchanged since 03/13/2021 study. Right lung appear s grossly clear. 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 No displaced fractures.
--- NOTE | 2021-03-16 10:17 | RAD REPORT ---
EXAM DESCRIPTION: CT - Head Brain Wo Cont - 03/16/2021 10:00 am CLINICAL HISTORY: WEAKNESS Headache, drowsiness COMPARISON: Head Brain Wo Cont dated 02/24/2021; Head Brain Wo Cont dated 06/28/2018; Head C Spine Mpr Wo Con dated 03/13/2021 TECHNIQUE: All CT scans are performed using dose optimization technique as appropriate and may inclu de automated exposure control or mA/KV adjustment according to patient size. FINDINGS: Acute on chronic moderate to large right-sided subdural hematoma again noted.Maximum thick ness superiorly measures 3 cm, similar to exam performed 3 days ago. Mild acute hematoma seen at the level of the posterior right calvarial merlin hole. There continues to be significant right to left mid line shift, which appears mildly progressive since the prior study currently measuring about 7-8 mm, previously 4-5 mm. Mild chronic sinusitis of the right maxillary antrum. Right-sided merlin holes are present IMPRESSION: The large right-sided acute on chronic subdural hematoma is again seen and is similar si ze to the study performed on 03/13/2021. There is, however, mild worsening in the degree of right to left midline shift since the prior study as detailed.
--- NOTE | 2021-03-16 10:29 | ER ---
Nurse's Notes [facility] Name: Kuldeep Ramsey Age: 80 yrs Sex: Male : 1940 Arrival Date: 03/16/2021 Time: 06:30 Bed 19 Private MD: Diagnosis: Acute on chronic subdural hematoma Presentation: 03/16 06:32 Chief complaint: Spouse and/or significant other states: stroke. weakness. Care prior sv1 to arrival: None. Mechanism of Injury: No Mechanism of Injury. 06:32 Acuity: JEREMÍAS 2 sv1 06:32 Method Of Arrival: EMS: [facility] sv1 06:37 Coronavirus screen: Vaccine status: Patient reports being unvaccinated. Client denies sv1 travel out of the [place] in the last 14 days. Client reports previous positive COVID test result. Ebola Screen: No symptoms or risks identified at this time. Initial Sepsis Screen: Does the patient meet any 2 criteria? No. Patient's initial sepsis screen is negative. Risk Assessment: Do you want to hurt yourself or someone else? Patient reports no desire to harm self or others. Onset of symptoms was March 16, 2021. 14:41 Initial Sepsis Screen: Does the patient have a suspected source of infection? No. ae4 Patient's initial sepsis screen is negative. Triage Assessment: 06:42 General: Appears in no apparent distress. Behavior is calm, cooperative, appropriate sv1 for age. Pain: Denies pain. Neuro: No deficits noted. Cardiovascular: No deficits noted. Respiratory: No deficits noted. Historical: - Allergies: 06:39 Codeine; sv1 06:39 Ibuprofen; sv1 06:39 Geodon; sv1 06:39 Iodinated Contrast Media - IV Dye; sv1 06:39 Morphine; sv1 06:39 Seroquel; sv1 - Home Meds: 06:39 amlodipine oral [Active]; aspirin 81 mg Oral chew 1 tab once daily [Active]; sv1 atorvastatin 80 mg Oral tab [Active]; Lipitor Oral [Active]; Magnesium Oxide Oral [Active]; naltrexone Oral 1.5 mg [Active]; Omeprazole Oral for Gastroesophageal reflux, Heartburn [Active]; Plavix 75 mg Oral tab 1 tab once daily [Active]; potassium chloride 10 mEq Oral cpER 1 cap once daily [Active]; sotalol Oral [Active]; - PMHx: 06:39 Hypertension; Myocardial infarction; sv1 - PSHx: 06:39 Cholecystectomy; sv1 - Immunization history: Last tetanus immunization: - up to date. - Social history:: Smoking status: Patient/guardian denies using. - Social history: Denies using street drugs, IV drugs, tobacco products, alcohol. Screenin:32 Abuse screen: none. Tuberculosis screening: No symptoms or risk factors identified. sv1 06:40 Nutritional screening: No deficits noted. Fall Risk Fall in past 12 months (25 points). sv1 IV access (20 points). Mental Status- Oriented to own ability (0 pts). Primary Survey: 06:36 A: Airway: patent. Breathing/Chest: Respiratory pattern: regular, Respiratory effort: sv1 spontaneous, unlabored, Breath sounds: clear, Chest inspection: symmetrical rise and fall of the chest. Circulation: Cardiac rhythm: sinus rhythm. Disability Alert. Exposure/Environment: All clothing and personal items were removed. A warming method has been applied: A warm blanket has been provided to the patient. 06:37 Reassessment Breathing/Chest Respiratory pattern Regular. sv1 Assessment: 06:32 General: Appears in no apparent distress. Behavior is calm, cooperative, appropriate sv1 for age. Pain: Denies pain. 06:45 Reassessment: Ems was called to transfer the patient to [facility]. The patient's sv1 stated she believes he is having a stroke. The patient denies stroke bat states he has weakness. No TIA or syncopal episodes. He has a history of a brain bleed ans was discharged 20 days ago. He is aao x 4 . Denies pain. . 10:43 Reassessment:. ae4 11:04 Reassessment: Patient appears in no apparent distress at this time. No changes from ae4 previously documented assessment. Patient and/or family updated on plan of care and expected duration. Pain level reassessed. Called patient's to update that patient will be transferred. 12:00 Reassessment: Patient appears in no apparent distress at this time. No changes from ae4 previously documented assessment. Patient and/or family updated on plan of care and expected duration. Pain level reassessed. Patient denies pain at this time. Patient concerned that his know where he will be transferred. Provided reassurance and informed patient his was contacted.. 12:44 Reassessment: Provided urinal, patient voided approx 300 mls of yellow urine. ae4 13:00 Reassessment: Assisted patient back into bed, patient asked if nurse would call his ae4 . Nurse provided reassurance that she spoke to via telephone. 14:37 Reassessment: Patient appears in no apparent distress at this time. Patient and/or ae4 family updated on plan of care and expected duration. Pain level reassessed. Nurse notified of patient that transfer was approved to [facility]. 14:50 Reassessment: Nurse called [phone], receiving nurse asked for 15 minutes and ae4 provided a direct number., . Will continue to monitor and call in 15 minutes. 16:22 Reassessment: Assisted patient back into bed, changed linen. Patient was attempting to ae4 drink water out of the faucet. Provided reassurance and patient education. Vital Signs: 06:32 BP 147 / 69; Pulse 78; Resp 16; Temp 98.2(O); Pulse Ox 99% on R/A; Weight 83.91 kg; oe Height 5 ft. 9 in. (175.26 cm); 08:13 BP 159 / 78; Pulse 70; Resp 24 S; Pulse Ox 98% ; ae4 11:03 BP 143 / 73; Pulse 77; Resp 18; Pulse Ox 99% ; ae4 12:07 BP 157 / 88; Pulse 81; Resp 18; Pulse Ox 97% on R/A; ae4 14:10 BP 140 / 70; Pulse 63; Resp 15; Pulse Ox 94% on R/A; ae4 14:41 BP 140 / 72; Pulse 72; Resp 22; Pulse Ox 98% on R/A; ae4 16:29 BP 155 / 70; Pulse 71; Resp 20; Pulse Ox 99% on R/A; ae4 06:32 Body Mass Index 27.32 (83.91 kg, 175.26 cm) oe [place] Coma Score: 06:32 Eye Response: spontaneous(4). Verbal Response: oriented(5). Motor Response: obeys sv1 commands(6). Total: 15. NIH Stroke Scale Scores: 07:21 NIHSS Score: 0 pm1 11:14 NIHSS Score: 0 pm1 16:12 NIHSS Score: 0 pm1 ED Course: 06:30 Patient arrived in ED. wm 06:32 Franklin Alvarado, TATI is Primary Nurse. sv1 06:32 Patient has correct armband on for positive identification. Placed in gown. Bed in low sv1 position. Call light in reach. Side rails up X2. 06:34 Triage completed. sv1 06:39 Arm band placed on right wrist. sv1 06:43 Patient maintains SpO2 saturation greater than 95% on room air. sv1 06:44 Thermoregulation: warm blanket given to patient. sv1 06:54 John Stevenson, JAXON is PHCP. pm1 06:54 Zaid Corral MD is Attending Physician. pm1 07:40 X-ray completed. Portable x-ray completed in exam room. md1 07:57 XRAY Chest (1 view) In Process Unspecified. EDMS 08:13 Inserted saline lock: 22 gauge in right antecubital area, using aseptic technique. ae4 Blood collected. 10:00 CT Head Brain wo Cont In Process Unspecified. EDMS Administered Medications: No medications were administered Outcome: 10:28 ER care complete, transfer ordered by . pm1 16:56 Patient left the ED. ll1 NIH Stroke Scale - NIH Stroke Score Date: 03/16/2021 Time: 07:21 Total Score = 0 1a. Level of Consciousness (LOC) - 0(Alert) 1b. Level of Consciousness (LOC) (Month \T\ Age) - 0(Both) 1c. LOC Commands (Open \T\ Closes Eyes/Automation Qa Analyst) - 0(Both) 2. Best Gaze (Lateral Gaze Paresis) - 0(Normal) 3. Visual Field Loss - 0(No visual loss) 4. Facial Palsy - 0(Normal) 5a. Left Arm: Motor (10-second hold) - 0(No drift) 5b. Right Arm: Motor (10-second hold) - 0(No drift) 6a. Left Leg: Motor (5-second hold - always test supine) - 0(No drift) 6b. Right Leg: Motor (5-second hold - always test supine) - 0(No drift) 7. Limb Ataxia (finger/nose \T\ heel/roberson - test with eyes open) - 0(Absent) 8. Sensory Loss (pinprick arms/legs/face) - 0(Normal) 9. Best Language: Aphasia (description/naming/reading) - 0(No aphasia) 10. Dysarthria (speech clarity - read or repeat words) - 0(Normal) 11. Extinction and Inattention (visual/tactile/auditory/spatial/personal) - 0(No abnormality) Initials: pm1 NIH Stroke Scale - NIH Stroke Score Date: 03/16/2021 Time: 11:14 Total Score = 0 1a. Level of Consciousness (LOC) - 0(Alert) 1b. Level of Consciousness (LOC) (Month \T\ Age) - 0(Both) 1c. LOC Commands (Open \T\ Closes Eyes/Automation Qa Analyst) - 0(Both) 2. Best Gaze (Lateral Gaze Paresis) - 0(Normal) 3. Visual Field Loss - 0(No visual loss) 4. Facial Palsy - 0(Normal) 5a. Left Arm: Motor (10-second hold) - 0(No drift) 5b. Right Arm: Motor (10-second hold) - 0(No drift) 6a. Left Leg: Motor (5-second hold - always test supine) - 0(No drift) 6b. Right Leg: Motor (5-second hold - always test supine) - 0(No drift) 7. Limb Ataxia (finger/nose \T\ heel/roberson - test with eyes open) - 0(Absent) 8. Sensory Loss (pinprick arms/legs/face) - 0(Normal) 9. Best Language: Aphasia (description/naming/reading) - 0(No aphasia) 10. Dysarthria (speech clarity - read or repeat words) - 0(Normal) 11. Extinction and Inattention (visual/tactile/auditory/spatial/personal) - 0(No abnormality) Initials: pm1 NIH Stroke Scale - NIH Stroke Score Date: 03/16/2021 Time: 16:12 Total Score = 0 1a. Level of Consciousness (LOC) - 0(Alert) 1b. Level of Consciousness (LOC) (Month \T\ Age) - 0(Both) 1c. LOC Commands (Open \T\ Closes Eyes/Automation Qa Analyst) - 0(Both) 2. Best Gaze (Lateral Gaze Paresis) - 0(Normal) 3. Visual Field Loss - 0(No visual loss) 4. Facial Palsy - 0(Normal) 5a. Left Arm: Motor (10-second hold) - 0(No drift) 5b. Right Arm: Motor (10-second hold) - 0(No drift) 6a. Left Leg: Motor (5-second hold - always test supine) - 0(No drift) 6b. Right Leg: Motor (5-second hold - always test supine) - 0(No drift) 7. Limb Ataxia (finger/nose \T\ heel/roberson - test with eyes open) - 0(Absent) 8. Sensory Loss (pinprick arms/legs/face) - 0(Normal) 9. Best Language: Aphasia (description/naming/reading) - 0(No aphasia) 10. Dysarthria (speech clarity - read or repeat words) - 0(Normal) 11. Extinction and Inattention (visual/tactile/auditory/spatial/personal) - 0(No abnormality) Initials: pm1 Signatures: Dispatcher [employer] EDMS John Stevenson, PROCESSING SPECIALIST PROCESSING SPECIALIST pm1 Jermaine Tillman Andrea, TATI RN ae4 Sandhya Valencia md1 Micha Scherer RN RN ll1 Janki Oconnor Franklin Alvarado RN RN sv1
--- NOTE | 2021-03-16 10:29 | EDPHYS ---
Physician Documentation [facility] Name: Kuldeep Ramsey Age: 80 yrs Sex: Male : 1940 Arrival Date: 03/16/2021 Time: 06:30 Bed 19 Private MD: ED Physician Zaid Corral HPI: 03/16 07:21 This 80 yrs old Male presents to ER via EMS with complaints of Fall. pm1 07:21 The patient presents to the emergency department with weakness of the entire body, pm1 generalized weakness. Onset: The symptoms/episode began/occurred just prior to arrival. Context: occurred at home, occurred while the patient was going to the restroom. witnessed by , controlled fall. Patient held on to the sink and sat down on the floor until EMS arrived. Associated signs and symptoms: The patient has no apparent associated signs or symptoms, Pertinent negatives: No headache, head injury, neck pain, fever, chest pain, shortness of breath. Severity of symptoms: in the emergency department the symptoms are unchanged Pain is currently a 0 / 10. The patient has been recently seen by a physician: Patient was transferred on 03/13 to [facility] and discharged yesterday due to acute on chronic subdural bleed. Historical: - Allergies: 06:39 Codeine; sv1 06:39 Ibuprofen; sv1 06:39 Geodon; sv1 06:39 Iodinated Contrast Media - IV Dye; sv1 06:39 Morphine; sv1 06:39 Seroquel; sv1 - Home Meds: 06:39 amlodipine oral [Active]; aspirin 81 mg Oral chew 1 tab once daily [Active]; sv1 atorvastatin 80 mg Oral tab [Active]; Lipitor Oral [Active]; Magnesium Oxide Oral [Active]; naltrexone Oral 1.5 mg [Active]; Omeprazole Oral for Gastroesophageal reflux, Heartburn [Active]; Plavix 75 mg Oral tab 1 tab once daily [Active]; potassium chloride 10 mEq Oral cpER 1 cap once daily [Active]; sotalol Oral [Active]; - PMHx: 06:39 Hypertension; Myocardial infarction; sv1 - PSHx: 06:39 Cholecystectomy; sv1 - Immunization history: Last tetanus immunization: - up to date. - Social history:: Smoking status: Patient/guardian denies using. - Social history: Denies using street drugs, IV drugs, tobacco products, alcohol. ROS: 07:21 Constitutional: Negative for fever, chills, and weight loss, Cardiovascular: Negative pm1 for chest pain, palpitations, and edema, Respiratory: Negative for shortness of breath, cough, wheezing, and pleuritic chest pain, Abdomen/GI: Negative for abdominal pain, nausea, vomiting, diarrhea, and constipation, Back: Negative for injury and pain, MS/Extremity: Negative for injury and deformity, Skin: Negative for injury, rash, and discoloration. 07:21 Neuro: Positive for generalized weakness, Negative for dizziness, numbness, tingling. 07:21 All other systems are negative. Exam: 07:21 Constitutional: This is a well developed, well nourished patient who is awake, alert, pm1 and in no acute distress. Head/Face: Normocephalic, atraumatic. Sutures to scalp without any signs of infection 07:21 Skin: Warm, dry with normal turgor. Normal color with no rashes, no lesions, and no evidence of cellulitis. MS/ Extremity: Pulses equal, no cyanosis. Neurovascular intact. Full, normal range of motion. 07:21 Eyes: Exam is negative for acute changes, Pupils: no acute changes, normal size, normal reaction to light, Extraocular movements: no acute changes, Conjunctiva: normal, no acute changes, no injection, Sclera: no acute changes, icterus, is not appreciated. 07:21 ENT: Exam is negative for acute changes, Mouth: no acute changes, Lips: normal, moist, Oral mucosa: normal, pink and intact, moist. 07:21 Neck: Exam negative for External neck: no acute changes, C-spine: vertebral tenderness, is not appreciated. 07:21 Chest/axilla: Inspection: normal, Palpation: no acute changes. 07:21 Cardiovascular: Exam negative for acute changes, Rate: normal, Rhythm: regular, Pulses: no pulse deficits are appreciated, Heart sounds: normal, normal S1and S2. 07:21 Respiratory: Exam negative for acute changes, the patient does not display signs of respiratory distress, Respirations: no acute changes, Breath sounds: are clear throughout. 07:21 Abdomen/GI: Inspection: abdomen appears normal, Palpation: abdomen is soft and non-tender, in all quadrants. 07:21 Neuro: Orientation: to person, place, time, Mentation: slow to respond, Memory: recent memory is impaired, unable to recall the events of the fall and hospitalization without prompting, Cranial nerves: CN II- XII are normal as tested, Cerebellar function: normal finger to nose testing, Motor: moves all fours, strength is 5/5 in all extremities, Sensation: no obvious gross deficits. Vital Signs: 06:32 BP 147 / 69; Pulse 78; Resp 16; Temp 98.2(O); Pulse Ox 99% on R/A; Weight 83.91 kg; oe Height 5 ft. 9 in. (175.26 cm); 08:13 BP 159 / 78; Pulse 70; Resp 24 S; Pulse Ox 98% ; ae4 11:03 BP 143 / 73; Pulse 77; Resp 18; Pulse Ox 99% ; ae4 12:07 BP 157 / 88; Pulse 81; Resp 18; Pulse Ox 97% on R/A; ae4 14:10 BP 140 / 70; Pulse 63; Resp 15; Pulse Ox 94% on R/A; ae4 14:41 BP 140 / 72; Pulse 72; Resp 22; Pulse Ox 98% on R/A; ae4 16:29 BP 155 / 70; Pulse 71; Resp 20; Pulse Ox 99% on R/A; ae4 06:32 Body Mass Index 27.32 (83.91 kg, 175.26 cm) oe NIH Stroke Scale Scores: 07:21 NIHSS Score: 0 pm1 11:14 NIHSS Score: 0 pm1 16:12 NIHSS Score: 0 pm1 [place] Coma Score: 06:32 Eye Response: spontaneous(4). Verbal Response: oriented(5). Motor Response: obeys sv1 commands(6). Total: 15. MDM: 06:54 Patient medically screened. pm1 10:27 Data reviewed: vital signs. Data interpreted: Pulse oximetry: on room air is 98 %. pm1 Interpretation: normal. Counseling: I had a detailed discussion with the patient and/or guardian regarding: the historical points, exam findings, and any diagnostic results supporting the discharge/admit diagnosis, lab results, radiology results, the need to transfer to another facility, for higher level of care, [facility] does not immediately have the required specialist. 11:00 Physician consultation: Neuro Surgeon Frank regarding regarding transfer, patient's pm1 condition, and will see patient pending bed availability. 11:59 ED course: Jay from [facility] transfer center will call us if bed pm1 availability before 1400. Would like to transfer patient back to [facility] since patient's two prior admissions were there 02/24 and 03/13 for the same subdural. 14:19 ED course: Patient declined transfer to [facility], no bed availability pm1 due to covid positive status. 15:20 Physician consultation: Neuro Surgeon Moisés regarding regarding transfer, patient's pm1 condition, and will see patient. 03/16 07:16 Order name: Basic Metabolic Panel; Complete Time: 08:51 pm1 03/16 07:16 Order name: CBC with Diff; Complete Time: 08:51 pm1 03/16 07:16 Order name: LFT's; Complete Time: 08:51 pm1 03/16 07:16 Order name: Magnesium; Complete Time: 08:51 pm1 03/16 07:16 Order name: NT PRO-BNP; Complete Time: 08:51 pm1 03/16 07:16 Order name: PT-INR; Complete Time: 08:51 pm1 03/16 07:16 Order name: Troponin (emerg Dept Use Only); Complete Time: 08:51 pm1 03/16 07:16 Order name: XRAY Chest (1 view); Complete Time: 08:51 pm1 03/16 07:16 Order name: EKG; Complete Time: 07:17 pm1 03/16 07:16 Order name: Cardiac monitoring; Complete Time: 08:14 pm1 03/16 07:16 Order name: EKG - Nurse/Tech; Complete Time: 08:28 pm1 03/16 09:44 Order name: CT Head Brain wo Cont; Complete Time: 10:20 pm1 03/16 12:22 Order name: SARS-COV-2 RT PCR; Complete Time: 13:51 EDMS 03/16 07:16 Order name: IV Saline Lock; Complete Time: 08:12 pm1 03/16 07:16 Order name: Labs collected and sent; Complete Time: 08:12 pm1 03/16 07:16 Order name: O2 Per Protocol; Complete Time: 08:12 pm1 03/16 07:16 Order name: O2 Sat Monitoring; Complete Time: 08:12 pm1 Administered Medications: No medications were administered Disposition Summary: 03/16/21 10:28 Transfer Ordered Transfer Location: [facility] pm1 Reason: Higher level of care pm1 Condition: Stable pm1 Problem: new pm1 Symptoms: are unchanged pm1 Accepting Physician: (03/16/21 16:56) ll1 Diagnosis - Acute on chronic subdural hematoma pm1 Forms: - Medication Reconciliation Form pm1 - SBAR form pm1 NIH Stroke Scale - NIH Stroke Score Date: 03/16/2021 Time: 07:21 Total Score = 0 1a. Level of Consciousness (LOC) - 0(Alert) 1b. Level of Consciousness (LOC) (Month \T\ Age) - 0(Both) 1c. LOC Commands (Open \T\ Closes Eyes/[employer] [place]) - 0(Both) 2. Best Gaze (Lateral Gaze Paresis) - 0(Normal) 3. Visual Field Loss - 0(No visual loss) 4. Facial Palsy - 0(Normal) 5a. Left Arm: Motor (10-second hold) - 0(No drift) 5b. Right Arm: Motor (10-second hold) - 0(No drift) 6a. Left Leg: Motor (5-second hold - always test supine) - 0(No drift) 6b. Right Leg: Motor (5-second hold - always test supine) - 0(No drift) 7. Limb Ataxia (finger/nose \T\ heel/roberson - test with eyes open) - 0(Absent) 8. Sensory Loss (pinprick arms/legs/face) - 0(Normal) 9. Best Language: Aphasia (description/naming/reading) - 0(No aphasia) 10. Dysarthria (speech clarity - read or repeat words) - 0(Normal) 11. Extinction and Inattention (visual/tactile/auditory/spatial/personal) - 0(No abnormality) Initials: pm1 NIH Stroke Scale - NIH Stroke Score Date: 03/16/2021 Time: 11:14 Total Score = 0 1a. Level of Consciousness (LOC) - 0(Alert) 1b. Level of Consciousness (LOC) (Month \T\ Age) - 0(Both) 1c. LOC Commands (Open \T\ Closes Eyes/[place]) - 0(Both) 2. Best Gaze (Lateral Gaze Paresis) - 0(Normal) 3. Visual Field Loss - 0(No visual loss) 4. Facial Palsy - 0(Normal) 5a. Left Arm: Motor (10-second hold) - 0(No drift) 5b. Right Arm: Motor (10-second hold) - 0(No drift) 6a. Left Leg: Motor (5-second hold - always test supine) - 0(No drift) 6b. Right Leg: Motor (5-second hold - always test supine) - 0(No drift) 7. Limb Ataxia (finger/nose \T\ heel/roberson - test with eyes open) - 0(Absent) 8. Sensory Loss (pinprick arms/legs/face) - 0(Normal) 9. Best Language: Aphasia (description/naming/reading) - 0(No aphasia) 10. Dysarthria (speech clarity - read or repeat words) - 0(Normal) 11. Extinction and Inattention (visual/tactile/auditory/spatial/personal) - 0(No abnormality) Initials: pm1 NIH Stroke Scale - NIH Stroke Score Date: 03/16/2021 Time: 16:12 Total Score = 0 1a. Level of Consciousness (LOC) - 0(Alert) 1b. Level of Consciousness (LOC) (Month \T\ Age) - 0(Both) 1c. LOC Commands (Open \T\ Closes Eyes/[place]) - 0(Both) 2. Best Gaze (Lateral Gaze Paresis) - 0(Normal) 3. Visual Field Loss - 0(No visual loss) 4. Facial Palsy - 0(Normal) 5a. Left Arm: Motor (10-second hold) - 0(No drift) 5b. Right Arm: Motor (10-second hold) - 0(No drift) 6a. Left Leg: Motor (5-second hold - always test supine) - 0(No drift) 6b. Right Leg: Motor (5-second hold - always test supine) - 0(No drift) 7. Limb Ataxia (finger/nose \T\ heel/roberson - test with eyes open) - 0(Absent) 8. Sensory Loss (pinprick arms/legs/face) - 0(Normal) 9. Best Language: Aphasia (description/naming/reading) - 0(No aphasia) 10. Dysarthria (speech clarity - read or repeat words) - 0(Normal) 11. Extinction and Inattention (visual/tactile/auditory/spatial/personal) - 0(No abnormality) Initials: pm1 Addendum: 03/17/2021 19:06 Co-signature as Attending Physician, Zaid Corral MD. tavon Signatures: Dispatcher [employer] EDMS Zaid Corral MD MD pkl John Stevenson, THICKENER OPERATOR THICKENER OPERATOR pm1 Micha Scherer RN RN ll1 Franklin Alvarado RN RN sv1 Corrections: (The following items were deleted from the chart) 03/16 12:22 10:55 CORONAVIRUS+MR.LAB.BRZ ordered. EDNJ EDMS 16:56 10:28 pm1 ll1
[2021-03-16 17:01] VITALS: TEMP 98.2
[2021-03-16 17:08] VITALS: BP 155/70; O2SAT 99
== END 2021-03-16 16:56 | disposition short-term general hospital (02) ==
LOC: ER 06:29
DX: S06.5X9A Traumatic subdural hemorrhage with loss of consciousness of unspecified duration, initial encounter (principal); I10 Essential (primary) hypertension; Z20.822 Contact with and (suspected) exposure to COVID-19
CPT/HCPCS: 93005 ×2; 85025; 80048; 36415; 83735; 85610; 80076; 84484; 83880; 70450; 71045; 99284; U0003

== ENCOUNTER 2021-03-30 13:26 | Emergency (ER) | payer OTHER ==
--- OUTSIDE RECORDS SUMMARY | 2021-03-30 13:32 | XMS REPORT | Continuity of Care Document ---
:1940 Author Organization [facility] t Address [address] [place] [address] Care Team Providers Name Role Phone YECENIA VILLATORO Primary Care Physician Unavailable ELOY Attending Clinician Unavailable JUAN MANUEL Attending Clinician Unavailable PIA STONE Attending Clinician Unavailable JL EDMONDS Attending Clinician Unavailable MICHELLE DA SILVA Attending Clinician Unavailable CHARIS STOVER Attending Clinician Unavailable Juan Manuel BABCOCK Attending Clinician BONY SMITH Attending Clinician Unavailable ELOY Admitting Clinician Unavailable JUAN MANUEL Admitting Clinician Unavailable MICHELLE DA SILVA Admitting Clinician Unavailable BONY SMITH Admitting Clinician Unavailable Payers Payer Name Policy Type Policy Number Effective Date Expiration Date S ource MEDICARE A B [id number] 2005 00:00:00 Problems Condition Condition Condition Status Onset Resolution Last Treating Co mments Source Name Details Category Date Date Treatment Clinician Date Hx of Hx of Disease Active [facility] exercise exercise 04-17 Colleg e stress stress 00:00: of test test 00 Medicin e Renal Renal Disease Active 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 ty to 04-17 College adverse 00:00: of reaction 00 Medicin s to e drug Kdc:Iberia Propensi Active [facility] ow ty to 04-17 Dye+Zipr adverse 00:00: of asidone+ reaction 00 Medici n Brillian s to e t Blue drug Fcf Iodine Propensi Active [facility] ty to 04-17 Gantt adverse 00:00: of reaction 00 Medicin s to e drug Opioid Propensi Active [facility] Analgesi ty to 04-17 Gantt cs adverse 00:00: of reaction 00 Medicin [...] 6-14 [facility] MESYLATE 00:00: Medical 00 [place] Social History Social Habit Start Date Stop Date Quantity Comments Source Sex Assigned [facility] Smoking Status Start Date Stop Date Source Never smoker [facility] o f Medicine Medications Ordered Filled Start Stop Current Ordering Indication Dosage Frequency Signature Comments Components Source Medication Medication Date Date Medication? Clinician (SIG) Name Name Mirabegron 2020-0 Yes 25mg Take 25 mg B aylor ER 04-17 by mouth. Gantt (MYRBETRIQ) 17:28: of 25 MG TB24 46 Medicin e atorvastati 2019-0 Yes 80mg Take 80 mg [facility] n (LIPITOR) 04-17 by mouth Abdon ege 80 MG 17:28: daily. of tablet 46 Medicin e Calcium 2019-0 Yes Take by [facility] Acetate-Mag 04-17 mouth. Colleg e nesium Carb 17:28: of 450-200 MG 46 Medicin TABS e fluticasone 2019-0 Yes 1{spray 1 [place] by [facility] (FLONASE) 1 } Nasal College 50 MCG/ACT 17:28: route. of nasal spray 46 Medicin e amlodipine Yes 10mg Take 10 mg B aylor (NORVASC) 11-21 by mouth. Colle ge 10 MG 00:00: of tablet 00 Medicin e losartan Yes AT BEDTIME [place] [facility] (COZAAR) 50 9-04 College MG tablet [...] kg Systolic blood 2019-04-17 17:28:00 158 mm[Hg] [facility] pressure Medicine Diastolic blood 2019-04-17 17:28:00 78 mm[Hg] [facility] pressure Medicine Heart rate 2019-04-17 17:28:00 69 /min [facility] Body weight 2019-04-17 17:28:[address] [facility] Procedures This patient has no known procedures. Plan of Care Planned Activity Planned Date Details Comments Source Future Scheduled Test TETANUS SHOT (ADULT) [facility] [code = TETANUS SHOT Medicin e (ADULT)] Future Scheduled Test MEDICARE AWV [facility] (Initial) [code = Medicine MEDICARE AWV (Initial)] Future Scheduled Test FALL SCREEN [code = [facility] FALL SCREEN] Medicine Future Scheduled Test PNEUMOVAX >=65 [facility] (PPSV23) [code = Medicine PNEUMOVAX >=65 (PPSV23)] Future Scheduled Test PREVNAR >= 65 (PCV13) [facility] [code = PREVNAR >= 65 Medici ne (PCV13)] Future Scheduled Test FLU VACCINE > 6 [facility] MONTHS [code = FLU Medicine VACCINE > 6 MONTHS] Encounters Start End Encounter Admission Attending Care Care Encounter Source Date/Time Date/Time Type Type Clinicians Facility Department ID 2021-03-[address] [facility] Neuro ICU [id number] 11:23:09 [facility] 2020-12-22 Inpatient DEAN BAILEY Surgery [id number] SLE 15:37:42 VARGAS 2021-03-15 2021-03-15 [facility] [id number] SLE 00:00:00 23:59:00 [facility] 2021-03-14 2021-03-15 Inpatient ER KENDAL [facility] Neuro ICU [id number] SLE 01:11:00 12:29:00 CE 2021-02-24 2021-02-27 Inpatient ER DOYLE STOVER [facility] Surgery [id number] SLEH 19:54:00 17:51:00 2019-08-15 2019-08-15 Outpatient EDNA [facility] [id number] SLE 00:00:00 00:00:00 2019-08-13 2019-08-13 Outpatient [facility] SLE [id number] SLEH 00:00:00 00:00:00 [id number] 2019-06-17 2019-06-17 Outpatient [facility] SLE [id number] SLEH 00:00:00 00:00:00 [id number] 2019-04-17 2019-04-17 Office Juan Manuel KALEIGHFortino [id number] [facility] 11:16:47 14:53:18 Visit Vargas AMBULATOR [id number] College Y [id number] [facility] 825 e Results Test Description Test Time [...] NOT 1092) ACCURATE CRE ATININE CLEARANCE IN CA EDICTING GLOMERULAR FILT RATION RATE. ESTIMATED GFR IS NOT APPLICABLE FOR DIALYSIS PATIENTS. Will Call Order Clerk ID - DBPOCT-GLUCOSE [id number] 11:13:30 Test Item Value Reference Range Interpretation Comments POC-GLUCOSE METER 152 mg/dL 70-110 H : TESTED A T [facility] 6720 (BEAKER) (test code [facility] [facility], = 1538) [address]: Will Call Order Clerk/Techni mei ID = [id number] for Shelby moses (contract), Syt ezra CT, BRAIN, WITHOUT [id number] 10:46:00Unlisted Reason for Exam - Click Yes and Enter Reason Below->No [facility] CENTERName: REMA KUO : 1940 [...] Chapa MDReport Verified Date/Time: 03/14/2021 10:46:46 SARS-COV2/RT-PCR ([facility])2021-03-14 07:03:48 Test Item Value Reference Range Interpretation Comments SARS-COV2/RT-PCR Negative Negative The SARS-Co V-2 target (test code = nucleic acids a re not 1276289) detected in thi s specimen. Negative result [...] revoked sooner. Fact Sheet for Healthcare Providers: https://www.[employer].Celergo/Documents/Xpert%20Xpress%20SARS%20CoV-2/Fact%20Sheets/302-3802%20SARS-COV -2%20HEALTHCARE%20PROVIDERS%20FACT%20SHEET.pdf Fact Sheet for Healthcare Patients: https://www.Offerti/Documents/Xpert %20Xpress%20SARS%20CoV-2/Fact%20Sheets/302-3801%27XVQF-FIC-8%20PATIENT%20FACT%20 SHEET.pdfPROTHROMBIN TIME/[id number] 06:29:21 Test Item Value Reference Range Interpretation Comments PROTIME (GEOVANY) 13.7 seconds 11.9-14.2 (test code = 759) INR (GEOVANY) (test 1.07 See_Comment [Automat ed message] code = 370) The system [employer] generated this result transmitted ref erence range: <=5.90. The reference range was not used to int erpret this result as normal/abnormal . RECOMMENDED COUMADIN/WARFARIN INR THERAPY RANGESSTANDARD DOSE: 2.0 - 3.0 Includes: PROPHYLAXIS forvenous thrombosis, systemic embolization; TREATMENT for venous thrombosis and/or pulmonary embolus.HIGH RISK: Target INR is 2.5-3.5 for patients with mechanical heart valves.POCT-GLUCOSE [id number] 06:04:12 Test Item Value Reference Range Interpretation Comments POC-GLUCOSE METER 112 mg/dL 70-110 H : TESTED A T [facility] 6720 (GEOVANY) (test code = [place], 1538) [address]: Will Call Order Clerk/Techni mei ID = [id number] for Ijeoma Pisano THROMBOELASTOGRAPH (TEG)2021-03-14 05:32:14 Test [...] (test 0.0 % 0.0-5.0 code = 1414) [id number] 04:42:48 Test Item Value Reference Range Interpretation Comments PHOSPHORUS (BEAKER) 3.5 mg/dL 2.3-4.7 Specimen slightly (test code = 604) hemolyzed Will Call Order Clerk ID - DBBASIC METABOLIC [id number] 04:42:48 Test Item Value Reference Range Interpretation [...] S NOT APPLICABLE FOR DIALYSIS PATIEN TS. Will Call Order Clerk ID - [id number] 04:42:47 Test Item Value Reference Range Interpretation Comments MAGNESIUM (BEAKER) 2.0 mg/dL 1.6-2.6 Specimen slightly (test code = 627) hemolyzed Will Call Order Clerk ID - DBCBC W/PLT COUNT & AUTO [id number] 04:13:13 Test Item Value Reference Range Interpretation [...] = 2801) RAD, CHEST, 1 VIEW, NON [id number] 04:08:00Reason for exam:->COVIDShould this be performed at the bedside?->Yes [facility] 1940 Sex: MFINAL REPORT [...] COVID-19 COVED-19 pneumonia persists. Signed: Mary Musa MDReport Verified Date/Time: 03/14/2021 04:08:19 POCT-GLUCOSE [id number] 12:58:28 Test Item Value Reference Range Interpretation Comments POC-GLUCOSE METER 130 mg/dL 70-110 H : TESTED A T [facility] 6720 (BEAKER) (test code = [place], 1538) [address]: Will Call Order Clerk/Techni mei ID = [id number] for ALDO PASTRANA HEMOGLOBIN [id number] 08:47:58 Test Item Value Reference Range Interpretation Comments HEMOGLOBIN A1C (BEAKER) (test code = 6.4 % 4.3-6.1 H 368) BASIC METABOLIC [id number] 06:00:48 Test Item Value Reference Range Interpretation [...] S NOT APPLICABLE FOR DIALYSIS PATIEN TS. Will Call Order Clerk ID - DBCBC W/PLT COUNT & AUTO [id number] 04:01:55 Test Item Value Reference Range Interpretation [...] PERCENT (BEAKER) (test code = 2801) POCT-GLUCOSE [id number] 18:14:42 Test Item Value Reference Range Interpretation Comments POC-GLUCOSE METER 134 mg/dL 70-110 H : TESTED A T [facility] 6720 (BEAKER) (test code = [place], 1538) 5[address]: Will Call Order Clerk/Techni mei ID = [id number] for GAVIN WALKER POCT-GLUCOSE [id number] 12:13:11 Test Item Value Reference Range Interpretation Comments POC-GLUCOSE METER 126 mg/dL 70-110 H : Notified RN/MD: (GEOVANY) (test code = TESTED AT [facility] 6720 1538) [place], [address]: Will Call Order Clerk/Techni mei ID = [id number] for ERICA TIAN CT, BRAIN, WITHOUT [id number] 06:54:00Unlisted Reason for Exam - Click Yes and Enter Reason Below->No [facility] 1940 Sex: MFINAL REPORT [...] injury is identified. Signed: JR Cifuentes Robert MDRepresearch psychiatric center Verified Date/Time: 02/26/2021 06:54:39 Reading Location: [facility] Reading Room POCT-GLUCOSE [id number] 06:34:34 Test Item Value Reference Range Interpretation Comments POC-GLUCOSE METER 130 mg/dL 70-110 H : TESTED A T [facility] 6720 (BEAKER) (test code = [place], 1538) [address]: Will Call Order Clerk/Techni mei ID = [id number] for DILMA BLANCO [id number] 04:09:05 Test Item Value Reference Range Interpretation Comments PHOSPHORUS (BEAKER) (test code = 3.3 mg/dL 2.3-4.7 604) Will Call Order Clerk ID - ERNESTINA GBASIC METABOLIC [id number] 04:09:04 Test Item Value Reference Range Interpretation [...] S NOT APPLICABLE FOR DIALYSIS PATIEN TS. Will Call Order Clerk ID - ERNESTINA [id number] 04:09:04 Test Item Value Reference Range Interpretation Comments MAGNESIUM (BEAKER) (test code = 2.3 mg/dL 1.6-2.6 627) Will Call Order Clerk ID - ERNESTINA GCBC W/PLT COUNT & AUTO [id number] 03:44:36 Test Item Value Reference Range Interpretation [...] PERCENT (BEAKER) (test code = 2801) POCT-GLUCOSE [id number] 00:06:22 Test Item Value Reference Range Interpretation Comments POC-GLUCOSE METER 146 mg/dL 70-110 H : TESTED A T [facility] (GEOVANY) (test code = [place]ERT [place] [facility], 1538) [address]: Will Call Order Clerk/Techni mei ID = [id number] for DILMA BLANCO POCT-GLUCOSE [id number] 12:07:35 Test Item Value Reference Range Interpretation Comments POC-GLUCOSE METER 126 mg/dL 70-110 H : Notified RN/MD: (GEOVANY) (test code = TESTED AT [facility] 6720 1538) [place] [facility], [address]: Will Call Order Clerk/Techni mei ID = [id number] for ERICA TIAN SARS-COV2/RT-PCR ([facility])2021-02-25 07:50:40 Test Item Value Reference Range Interpretation Comments SARS-COV2/RT-PCR Negative Negative The SARS-Co V-2 target (test code = nucleic acids a re not [id number]) detected in thi s specimen. Negative result [...] revoked sooner. Fact Sheet for Healthcare Providers: https://www.cephe id.com/Documents/Xpert%20Xpress%20SARS%20CoV-2/Fact%20Sheets/302-3802%20SARS-COV -2%20HEALTHCARE%20PROVIDERS%20FACT%20SHEET.pdf Fact Sheet for Healthcare Patients: https://www.[employer]/Documents/Xpert %20Xpress%20SARS%20CoV-2/Fact%20Sheets/302-3801%80NJPG-CYM-6%20PATIENT%20FACT%20 SHEET.pdfCT, BRAIN, WITHOUT [id number] 07:28:00Neurosurgical evaluation preoperativelyReason for exam:->Intracranial hemorrhage [facility] 1940 Sex: MFINAL REPORT [...] February 25, 2021. Signed: JR Cifuentes Robert MDRchar[facility] Verified Date/Time: 02/25/2021 07:28:24 Reading Location: [facility] Reading Room POCT-GLUCOSE [id number] 06:01:17 Test Item Value Reference Range Interpretation Comments POC-GLUCOSE METER 102 mg/dL 70-110 : TESTED A Mikey [facility] 6720 (BEAKER) (test code [facility], = 1538) [address]: Will Call Order Clerk/Techni mei ID = [id number] for Pa Naranjo [id number] 04:07:22 Test Item Value Reference Range Interpretation Comments MAGNESIUM (BEAKER) (test code = 2.1 mg/dL 1.6-2.6 627) Will Call Order Clerk ID - ISAK [id number] 04:07:22 Test Item Value Reference Range Interpretation Comments PHOSPHORUS (BEAKER) (test code = 2.9 mg/dL 2.3-4.7 604) Will Call Order Clerk ID - ISAK MBASIC METABOLIC [id number] 04:07:21 Test Item Value Reference Range Interpretation [...] S NOT APPLICABLE FOR DIALYSIS PATIEN TS. Will Call Order Clerk ID - ISAK MCBC (HEMOGRAM ONLY)2021-02-25 03:47:50 [...] = 413) RAD, CHEST, 1 VIEW, NON [id number] 02:13:00Reason for exam:- >weaknessShould this be performed at the bedside?->Yes [facility] 1940 Sex: MFINAL REPORT History: Weakness. [...] MDReport Verified Date/Time: 02/25/2021 02:13:07 POCT- GLUCOSE [id number] 01:15:35 Test Item Value Reference Range Interpretation Comments POC-GLUCOSE METER 108 mg/dL 70-110 : TESTED A T [facility] 6720 (BEAKER) [facility], = 1538) [address]: Will Call Order Clerk/Techni mei ID = [id number] for Pa Naranjo [id number] 22:37:00 Test Item Value Reference Range Interpretation Comments PROCALCITONIN (BEAKER) (test code = < ng/mL <0.05 3036) SEPSIS RISK (ng/mL)Low: 0.05-0.50Intermediate: 0.51-2.00High: >=2.01RAPID DRUG SCREEN, [id number] 22:15:49 Test Item Value Reference Range Interpretation [...] situations. Chain of custody not maintained. Some bmme-nfn-vdvskho medications, as well as adulterants, may cause inaccurate results. Clinical correlation should be applied. A more comprehensivedrug screen or confirmation of a detected drug may be performed upon request.Will Call Order Clerk ID - BSHEPATIC FUNCTION [id number] 22:14:58 Test Item Value Reference Range Interpretation [...] (test code = 13 U/L 6-55 347) Will Call Order Clerk ID - [id number] 22:08:14 Test Item Value Reference Range Interpretation Comments PARTIAL THROMBOPLASTIN TIME 40.8 seconds 22.5-36.0 H (BEAKER) (test code = 760) PROTHROMBIN [id number] 22:07:16 Test Item Value Reference Range Interpretation Comments PROTIME (BEAKER) 15.3 seconds 11.9-14.2 H (test code = 759) INR (BEAKER) (test 1.23 See_Comment [Automat ed message] code = 370) The system [employer] generated this result transmitted ref erence range: <=5.90. The reference range was not used to int erpret this result as normal/abnormal . RECOMMENDED COUMADIN/WARFARIN INR THERAPY RANGESSTANDARD DOSE: 2.0 - 3.0 Includes: PROPHYLAXIS forvenous thrombosis, systemic embolization; TREATMENT for venous thrombosis and/or pulmonary embolus.HIGH RISK: Target INR is 2.5-3.5 for patients with mechanical heart valves.LACTIC ACID, [id number] 22:04:34 Test Item Value Reference Range Interpretation Comments LACTATE BLOOD ARTERIAL (2) 1.1 mmol/L 0.5-2.2 (BEAKER) (test code = 2874) Will Call Order Clerk ID - BSURINALYSIS [id number] 21:54:39 Test Item Value Reference Range Interpretation Comments RBC UA (BEAKER) (test code = 519) 5 /HPF WBC UA (BEAKER) (test code = 520) < /HPF BACTERIA (BEAKER) (test code = 517) None Seen CRYSTALS, URINE (BEAKER) (test code None Seen = 1521) Will Call Order Clerk ID - techURINALYSIS WITH MICROSCOPIC IF [id number] 21:52:51 Test Item Value Reference Range Interpretation [...] = 463) SOURCE(BEAKER) (test code = 2795) Will Call Order Clerk ID - [auto]CT, CTA [id number] 17:40:00Reason for Exam:->aaa Addendum BeginsREPORT STATUS:A Addendum: Several small cysts are seen in the left lung base. No free intraperitoneal air. I otherwise agree with the previously described non vascular findings. End of addendum. Signed: Armando Proctor MDReport Verified Date/Time: 03/15/2019 17:40:34 Reading Location[facility] Reading RoomAddendum EndsFINAL REPORT CT angiography of the abdominal aorta and pelvic arteries, 15 March 2019 INDICATION: This is a 78 year old male with diagnosis of abdominal aortic aneurysm presents for assessment. Per EPIC, patient is said to have right renal [...] to the contrast sheet scanned in the EPIC system for the amount and route of [...] iliac artery is approximately 7 cm, and sales training representative dimension is approximately 2.2 x 2.2 [...] dictated regarding the non-vascular findings by the Crm Analyst Radiologist. Signed: Bill Fountaineport Verified Date/Time: 03/15/2019 11:50:43 [id number] 10:21:00 Test Item Value Reference Range Interpretation Comments POC-CREATININE 0.9 mg/dL 0.6-1.[address] [facility] 67[address] ([facility]) (test [place] code = 1859) [address] POC-EGFR (GEOVANY) 82 mL/min/1.73M2 (test code = 1860) TISSUE [id number] 17:04:00Surgical Pathology Report Case: [id number] Authorizing Provider: Danial Smith, Collected: 10/01/2018 0904 Ordering Location: [facility] Received: 10/01/2018 1008 PERIOPERATIVE SERVICES Pathologist: Zeferino Warner MD Specimen: Plaque, RIGHT CAROTID PLAQUE/ ENDARTERECTOMY ARTERY, RIGHT CAROTID, ENDARTERECTOMY:CALCIFIC ATHEROSCLEROTIC PLAQUE Signing Pathologist Direct Phone Line: [phone] signed by Zeferino Warner MD on 10/04/2018 at 5:04 [id number]; [id number]. Right carotid plaque/endarterectomyThe specimen is received in formalin and consists of a portion of cylindrical c alcified tissue measuring 4.5 x 0.9 x 0.9 cm. Forming Department Supervisor sections are in one cassette for decalcification. CB/plPerformedPLATELET AGGREGATION: FUNCTION [id number] 14:42:00 Test Item Value Reference Range Interpretation Comments WEAK ADP 56 % 60-91 L RESULT(BEAKER) (test code = 2135) PLATELET FUNCTION 50-59% indicates mild SCREEN INTERP platelet dysfunction (BEAKER) (test code = 2173) [id number] Genevieve Lin MD (BEAKER) (test code = (electronic signature) 7532) PLATELET COUNT AGG 159 K/CU MM 150-450 (BEAKER) (test code = 2656) Platelet Function Screen results may be falsely low with platelet counts<100,000/cu mm.for patients on clopidogrel in past two weeksPOTASSIUM- STAT [id number] 12:04:00 Test Item Value Reference Range Interpretation Comments POTASSIUM (BEAKER) (test code = 4.0 meq/L 3.6-5.5 379) GLUCOSE-STAT [id number] 12:04:00 Test Item Value Reference Range Interpretation Comments GLUCOSE RANDOM (BEAKER) (test code 139 mg/dL 70-110 H = 652) HGB/HCT (H&H) - STAT [id number] 12:04:00 Test Item Value Reference Range Interpretation Comments HEMOGLOBIN (BEAKER) (test code = 10.5 g/dL 13.0-16.8 L 410) HEMATOCRIT (BEAKER) (test code = 31.0 % 40.0-50.0 L 411) [id number] 06:25:00 Test Item Value Reference Range Interpretation [...] is2.5-3.5 for patients wiht mechanical heart valves.POCT-GLUCOSE [id number] 06:02:00 Test Item Value Reference Range Interpretation Comments POC-GLUCOSE METER 111 mg/dL 70-110 H TESTED AT [facility] 6720 (BEKOREY) (test code = [place] 1538) [address] [id number] 12:11:00 Test Item Value Reference Range Interpretation Comments PARTIAL THROMBOPLASTIN TIME 67.7 seconds 22.5-36.0 H (BEAKER) (test code = 760) PROTHROMBIN [id number] 12:09:00 Test Item Value Reference Range Interpretation [...] for patients wiht mechanical heart valves.BASIC METABOLIC [id number] 12:09:00 Test Item Value Reference Range Interpretation [...] PATIEN TS. CBC W/PLT COUNT & AUTO [id number] 11:53:00 Test Item Value Reference Range Interpretation [...] PERCENT (BEAKER) (test code = 2801) TISSUE [id number] 14:34:00Surgical Pathology Report Case: [id number] Authorizing Provider: Danial Smith, Collected: 09/12/2018 0910 Ordering Location: [facility] Received: 09/12/2018 1105 PERIOPERATIVE SERVICES Pathologist: Zeferino Warner MD Specimen: Plaque, LEFT CAROTID ARTERY PLAQUE ARTERY, LEFT CAROTID, ENDARTERECTOMY:CALCIFIC ATHEROSCLEROTIC PLAQUE WITH INTRAPLAQUE HEMORRHAGE Signing PathologistDirect Phone Line: [phone] signed by Zeferino Warner MD on 09/18/2018 at 2:34 [id number]; [id number] and postop diagnosis: left carotid stenosisLeft carotid artery plaqueReceived in saline labeled with the patient's name, accession number and "plaque" is a bifurcated, previously incised portion of yellow plaque measuring 3.2 x 1.0 x 0.5 cm. The specimen is serially sectioned to reveal focal areas of calcification measuring up to 0.3 cm in thickness. There are also focal areas of hemorrhage and necrosis. Forming Department Supervisor sections are submitted in A1, following decalcification. CG/pl PerformedTSH/FREE T4 IF [id number] 05:37:00 Test Item Value Reference Range Interpretation Comments THYROID STIMULATING HORMONE 0.76 uIU/mL 0.35-4.94 (BEAKER) (test code = 772) TROPONIN [id number] 05:01:00 Test Item Value Reference Range Interpretation [...] failure, acidosis, acute neurological disease, and persistent tachyarrhythmia.[id number] 04:53:00 Test Item Value Reference Range Interpretation Comments MAGNESIUM (BEAKER) (test code = 2.0 mg/dL 1.6-2.6 627) BASIC METABOLIC [id number] 04:53:00 Test Item Value Reference Range Interpretation [...] S NOT APPLICABLE FOR DIALYSIS PATIEN TS. [id number] 04:53:00 Test Item Value Reference Range Interpretation [...] (test code = 413) CT, BRAIN, WITHOUT [id number] 18:45:00FINAL REPORT CT, BRAIN, WITHOUT CONTRAST CLINICAL [...] MDReport Verified Date/Time: 09/13/2018 18:45:50 Reading Location: [address] Neuro Reading Room TROPONIN [id number] 16:04:00 Test Item Value Reference Range Interpretation [...] acidosis, acute neurological disease, and persistent tachyarrhythmia.TROPONIN [id number] 10:03:00 Test Item Value Reference Range Interpretation [...] WBC 0-0 (BEAKER) (test code = 413) [id number] 06:09:00 Test Item Value Reference Range Interpretation Comments MAGNESIUM (BEAKER) (test code = 1.7 mg/dL 1.6-2.6 627) BASIC METABOLIC [id number] 06:09:00 Test Item Value Reference Range Interpretation [...] NOT APPLICABLE FOR DIALYSIS PATIEN TS. TROPONIN [id number] 06:02:00 Test Item Value Reference Range Interpretation [...] failure, acidosis, acute neurological disease, and persistent tachyarrhythmia.PT/[id number] 05:45:00 Test Item Value Reference Range Interpretation [...] normal platelet (test code = 2173) function [id number] Genevieve Lin MD (BEAKER) (test code = (electronic signature) 6579) PLATELET COUNT AGG 174 K/CU MM 150-450 (BEAKER) (test code = 1807) Platelet Function Screen results may be falsely low with platelet counts<100,000/cu mm.for patients on clopidogrel in past two weeksfor patients on clopidogrel in past two weeksfor patients on clopidogrel in past two weeksBASIC METABOLIC [id number] 10:47:00 Test Item Value Reference Range Interpretation [...] NOT APPLICABLE FOR DIALYSIS PATIEN TS. PROTHROMBIN TIME/[id number] 10:27:00 Test Item Value Reference Range Interpretation [...] mechanical heart valves.CBC W/PLT COUNT & AUTO [id number] 10:19:00 Test Item Value Reference Range Interpretation [...] (BEAKER) (test code = 2801) BLOOD GAS, [id number] 10:15:00 Test Item Value Reference Range Interpretation [...] code = 381) 141 meq/L 135-148 POTASSIUM-STAT [id number] 08:48:00 Test Item Value Reference Range Interpretation Comments POTASSIUM (BEAKER) (test code = 3.7 meq/L 3.6-5.5 379) BLOOD GAS, [id number] 08:48:00 Test Item Value Reference Range Interpretation [...] (test code = 1819) 100.0 % GLUCOSE-STAT [id number] 08:48:00 Test Item Value Reference Range Interpretation Comments GLUCOSE RANDOM (BEAKER) (test code 117 mg/dL 70-110 H = 652) HGB/HCT (H&H) - STAT [id number] 08:48:00 Test Item Value Reference Range Interpretation Comments HEMOGLOBIN (BEAKER) (test code = 11.1 g/dL 13.0-16.8 L 410) HEMATOCRIT (BEAKER) (test code = 33.0 % 40.0-50.0 L 411) CALCIUM, [id number] 08:48:00 Test Item Value Reference Range Interpretation Comments CALCIUM IONIZED (BEAKER) (test 1.11 mmol/L 1.12-1.27 L code = 698) PH, BLOOD (BEAKER) (test code = 7.40 1810) BASIC METABOLIC [id number] 06:59:00 Test Item Value Reference Range Interpretation [...] S NOT APPLICABLE FOR DIALYSIS PATIEN TS. PT/[id number] 06:46:00 Test Item Value Reference Range Interpretation Comments PROTIME (BEAKER) (test code = 13.9 seconds 11.9-14.2 759) INR (BEAKER) (test code = 370) 1.1 <=5.9 PARTIAL THROMBOPLASTIN TIME 51.8 seconds 22.5-36.0 H ([place]) (test code = 760) Effective 08/15/2018: PT Reference Range ChangeNew: 11.9-14.2 Previous: 11.7- 14.7RECOMMENDED COUMADIN/WARFARIN INR THERAPY RANGESSTANDARD DOSE: 2.0-3.0 Includes: PROPHYLAXIS for venous thrombosis, systemic embolization; TREATMENT for venous thrombosis and/or pulmonary embolus.HIGH RISK: Target INR is2.5-3.5 for patients wiht mechanical heart valves.PROTHROMBIN TIME/[id number] 06:45:00 Test Item Value Reference Range Interpretation [...] is2.5-3.5 for patients wiht mechanical heart valves.POCT-GLUCOSE [id number] 06:24:00 Test Item Value Reference Range Interpretation Comments POC-GLUCOSE METER 117 mg/dL 70-110 H TESTED AT [facility] 6720 ([place]) (test code = [place] 1538) [address] RAD, CHEST, 2 [id number] 13:32:00Reason for exam:->preop Should this be performed [...] the left favor chronic changes. Signed: Derik Odomort Verified Date/Time: 09/04/2018 13:32:54 Reading Location: [facility] B1 C013W Consult Reading Room CBC W/PLT COUNT & AUTO [id number] 12:57:00 Test Item Value Reference Range Interpretation [...]
--- NOTE | 2021-03-30 14:48 | RAD REPORT ---
EXAM DESCRIPTION: CT - Head Brain Wo Cont - 03/30/2021 2:35 pm CLINICAL HISTORY: TRAUMA COMPARISON: Head Brain Wo Cont dated 03/16/2021 TECHNIQUE: Axial 5 mm thick images of the head were obtained without IV contrast. All CT scans are performed using dose optimization technique as appropriate and may include automated exposure control or mA/KV adjustment according to patient size. FINDINGS: The March 16 examination showed acute on chronic large right-sided subdural hematoma. T here were 2 right lateral skull merlin holes at the time of the March 16 study. The patient has had an intervening surgical procedure with no information regarding the date of that procedure. Skin stap les are still in place from that procedure. A craniotomy has been performed along the right lateral f rontal bone between the 2 merlin holes that were present March 16. Acute on chronic blood is present in the residual or recurrent subdural hematoma. Intracranial areas present which would not be unexpected if the procedure was recently performed. Patient still has midl ine shift of 10 mm at the third ventricle level. Subdural measures up to 15 mm in thickness along the anterolateral frontal lobe. Subdural mass-effect causes right-sided cerebral sulcal effacement. No i ntraventricular hemorrhagic component. An acute cortical based infarction is not identified. Partial effacement of the right lateral ventricle is present. Third ventricle and left lateral ventricle are not significantly different from March 16 imaging. Mastoid air cells are clear. Right greater than left chronic paranasal sinus changes are present. IMPRESSION: Acute on chronic residual or recurrent right-sided subdural hematoma. There is mass effe ct on the cerebral hemisphere with 10 mm of right to left midline shift at the third ventricle level. The patient has had intervening right lateral craniotomy procedure. Skin debo are still in place. The intracranial air component would not be unexpected given the recent surgical procedure.
--- NOTE | 2021-03-30 15:28 | RAD REPORT ---
EXAM DESCRIPTION: RAD - Forearm Right - 03/30/2021 2:47 pm CLINICAL HISTORY: PAIN COMPARISON: No comparisonsNone. FINDINGS: No fracture is identified. There is no dislocation or periosteal reaction noted. Punctate metallic foreign body in the soft tissues just distal to the medial margin of the elbow join t probably chronic. Patient has additional benign soft tissue calcification distal forearm. Minimal d egenerative spurring seen at the elbow joint. IMPRESSION: Negative right forearm examination for acute finding.
--- NOTE | 2021-03-30 16:27 | ER ---
Nurse's Notes [facility] Name: Kuldeep Ramsey Age: 80 yrs Sex: Male : 1940 Arrival Date: 03/30/2021 Time: 13:37 Bed 18 Private MD: Diagnosis: Acute on chronic subdural hematoma Presentation: 03/30 13:37 Chief complaint: Patient states: pt fall and injured right elbow. pt denies hitting waters head. Coronavirus screen: Vaccine status: Patient reports receiving the 2nd dose of the covid vaccine. Ebola Screen: Patient denies travel to an Ebola-affected area in the 21 days before illness onset. Initial Sepsis Screen: Does the patient meet any 2 criteria? No. Patient's initial sepsis screen is negative. Does the patient have a suspected source of infection? No. Patient's initial sepsis screen is negative. Risk Assessment: Do you want to hurt yourself or someone else? Patient reports no desire to harm self or others. Onset of symptoms was March 30, 2021. 13:37 Method Of Arrival: EMS: [facility] 13:37 Acuity: JEREMÍAS 4 waters Triage Assessment: 13:39 General: Appears in no apparent distress. Behavior is calm, cooperative. Pain: waters Complains of pain in right elbow. Historical: - Allergies: 13:39 Codeine; waters 13:39 Geodon; waters 13:39 Ibuprofen; waters 13:39 Iodinated Contrast Media - IV Dye; waters 13:39 Morphine; waters 13:39 Seroquel; waters - Home Meds: 13:39 amlodipine oral [Active]; aspirin 81 mg Oral chew 1 tab once daily [Active]; waters atorvastatin 80 mg Oral tab [Active]; Lipitor Oral [Active]; Magnesium Oxide Oral [Active]; naltrexone Oral 1.5 mg [Active]; Omeprazole Oral for Gastroesophageal reflux, Heartburn [Active]; Plavix 75 mg Oral tab 1 tab once daily [Active]; potassium chloride 10 mEq Oral cpER 1 cap once daily [Active]; sotalol Oral [Active]; - PMHx: 13:39 Hypertension; Myocardial infarction; CVA; waters - PSHx: 13:39 Cholecystectomy; waters - Immunization history:: Adult Immunizations up to date. - Social history:: Smoking status: Patient denies any tobacco usage or history of. Screenin:41 Abuse screen: Denies threats or abuse. Denies injuries from another. Nutritional waters screening: No deficits noted. Tuberculosis screening: No symptoms or risk factors identified. Fall Risk Fall in past 12 months (25 points). Vital Signs: 13:37 BP 122 / 49; Pulse 70; Resp 18; Temp 97.6(O); Pulse Ox 99% on R/A; Weight 74.84 kg; waters Height 5 ft. 8 in. (172.72 cm); 16:17 BP 123 / 61; Pulse 80; Resp 18; Pulse Ox 99% ; waters 13:37 Body Mass Index 25.09 (74.84 kg, 172.72 cm) waters ED Course: 13:37 Patient arrived in ED. waters 13:39 Triage completed. waters 13:39 Arm band placed on. waters 13:41 Patient has correct armband on for positive identification. Bed in low position. waters 13:41 No provider procedures requiring assistance completed. waters 14:02 Dm Matos PA is PHCP. [facility] 14:03 Geremias Hammer MD is Attending Physician. jr8 14:34 CT Head Brain wo Cont In Process Unspecified. EDMS 14:47 XRAY Forearm RIGHT In Process Unspecified. EDMS 16:17 COVID-19 SARS RT PCR (Document "Date of Onset" if Symptomatic) Sent. waters 17:09 COVID-19 SARS RT PCR (Document "Date of Onset" if Symptomatic) Sent. waters 17:35 initiated transfer to [facility], pt accepted in transfer by , admin bd approval given by Sara Monk. 19:15 Katie Soto RN is Primary Nurse. kd3 Administered Medications: 20:00 Drug: Tylenol 650 mg Route: PO; kd3 Outcome: 16:26 Discharge ordered by MD. medina 17:28 ER care complete, transfer ordered by MD. medina 20:05 Discharged to transfer to [facility] kd3 20:05 Condition: stable 20:05 Discharge instructions given to patient, Instructed on discharge instructions, follow up and referral plans. Demonstrated understanding of instructions, follow-up care. 20:42 Patient left the ED. kd3 Signatures: Dispatcher [employer] EDMS Angelika Larsen bd Dm Matos PA PA jr8 Doucette, Kyli, RN RN kd3 Melody-Stager, Marizol, RN RN waters
--- NOTE | 2021-03-30 16:27 | EDPHYS ---
Physician Documentation [facility] Name: Kuldeep Ramsey Age: 80 yrs Sex: Male : 1940 Arrival Date: 03/30/2021 Time: 13:37 Bed 18 Private MD: ED Physician Geremias Hammer HPI: 03/30 15:01 This 80 yrs old Male presents to ER via EMS with complaints of Fall injury. jr8 15:01 Onset: The symptoms/episode began/occurred acutely, today. It is unknown whether or not jr8 the patient has had similar symptoms in the past. The patient has not recently seen a physician. Patient stated that he had accidental mechanical fall today landing on his right forearm. Patient complains of right forearm pain at this time. Denies hitting head or neck. senior living staff was concerned that he may have done something to his head and that he does not remember as he recently suffered a acute subdural hematoma which resulted in craniotomy procedure.. Historical: - Allergies: 13:39 Codeine; waters 13:39 Geodon; waters 13:39 Ibuprofen; waters 13:39 Iodinated Contrast Media - IV Dye; waters 13:39 Morphine; waters 13:39 Seroquel; waters - Home Meds: 13:39 amlodipine oral [Active]; aspirin 81 mg Oral chew 1 tab once daily [Active]; waters atorvastatin 80 mg Oral tab [Active]; Lipitor Oral [Active]; Magnesium Oxide Oral [Active]; naltrexone Oral 1.5 mg [Active]; Omeprazole Oral for Gastroesophageal reflux, Heartburn [Active]; Plavix 75 mg Oral tab 1 tab once daily [Active]; potassium chloride 10 mEq Oral cpER 1 cap once daily [Active]; sotalol Oral [Active]; - PMHx: 13:39 Hypertension; Myocardial infarction; CVA; waters - PSHx: 13:39 Cholecystectomy; waters - Immunization history:: Adult Immunizations up to date. - Social history:: Smoking status: Patient denies any tobacco usage or history of. ROS: 15:01 Eyes: Negative for injury, pain, redness, and discharge, ENT: Negative for injury, jr8 pain, and discharge, Neck: Negative for injury, pain, and swelling, Cardiovascular: Negative for chest pain, palpitations, and edema, Respiratory: Negative for shortness of breath, cough, wheezing, and pleuritic chest pain, Abdomen/GI: Negative for abdominal pain, nausea, vomiting, diarrhea, and constipation, Back: Negative for injury and pain, Skin: Negative for injury, rash, and discoloration, Neuro: Negative for headache, weakness, numbness, tingling, and seizure. 15:01 MS/extremity: Positive for ecchymosis, pain, tenderness, of the right arm. Exam: 15:01 Constitutional: This is a well developed, well nourished patient who is awake, alert, jr8 and in no acute distress. 15:01 Neck: Trachea midline, no thyromegaly or masses palpated, and no cervical lymphadenopathy. Supple, full range of motion without nuchal rigidity, or vertebral point tenderness. No Meningismus. Chest/axilla: Normal chest wall appearance and motion. Nontender with no deformity. No lesions are appreciated. Cardiovascular: Regular rate and rhythm with a normal S1 and S2. No gallops, murmurs, or rubs. Normal PMI, no JVD. No pulse deficits. Respiratory: Lungs have equal breath sounds bilaterally, clear to auscultation and percussion. No rales, rhonchi or wheezes noted. No increased work of breathing, no retractions or nasal flaring. Abdomen/GI: Soft, non-tender, with normal bowel sounds. No distension or tympany. No guarding or rebound. No evidence of tenderness throughout. Back: No spinal tenderness. No costovertebral tenderness. Full range of motion. Skin: Warm, dry with normal turgor. Normal color with no rashes, no lesions, and no evidence of cellulitis. MS/ Extremity: Pulses equal, no cyanosis. Neurovascular intact. Full, normal range of motion. Mild ecchymosis noted to the right lateral forearm with tenderness to palpation to the mid forearm region. Neuro: Awake and alert, GCS 15, oriented to person, place, time, and situation. Cranial nerves II-XII grossly intact. Motor strength 5/5 in all extremities. Sensory grossly intact. 15:01 Head/face: Right-sided parietal suture and debo noted. No dehiscence, no erythema, no discharge noted.. Vital Signs: 13:37 BP 122 / 49; Pulse 70; Resp 18; Temp 97.6(O); Pulse Ox 99% on R/A; Weight 74.84 kg; waters Height 5 ft. 8 in. (172.72 cm); 16:17 BP 123 / 61; Pulse 80; Resp 18; Pulse Ox 99% ; waters 13:37 Body Mass Index 25.09 (74.84 kg, 172.72 cm) waters MDM: 14:03 Patient medically screened. jr8 16:23 Data reviewed: vital signs, nurses notes, radiologic studies, CT scan, plain films. jr8 Data interpreted: Pulse oximetry: on room air is 99 %. Interpretation: normal. Counseling: I had a detailed discussion with the patient and/or guardian regarding: the historical points, exam findings, and any diagnostic results supporting the discharge/admit diagnosis, radiology results, the need for outpatient follow up, a family practitioner, to return to the emergency department if symptoms worsen or persist or if there are any questions or concerns that arise at home. ED course: Spoke with family about the acute on chronic new blood component within the subdural. Most likely this is residual postprocedural but because he had an unwitnessed fall will be better to send him back for observation and reassessment with a CT scan in the morning. Family does not want to have to put him through this as he has had multiple surgeries secondary to continued subdural. Stated that they would [facility] where they can put him on hospice. The daughter is medical power of criminal defense attorney as patient has baseline dementia. . 17:06 ED course: Daughter of patient arrived to emergency room and spoke with her sister who jr8 is also medical power of criminal defense attorney. The other sister is adamant about patient going back to be observed and reevaluated in case it is new blood and that she would want intervention done if this were to happen. The daughter that is present right now has conceded to that and would like us to reinitiate transfer at this time.. 03/30 15:45 Order name: COVID-19 SARS RT PCR (Document "Date of Onset" if Symptomatic); Complete bd Time: 17:25 03/30 17:08 Order name: CBC with Diff; Complete Time: 17:37 03/30 14:15 Order name: XRAY Forearm RIGHT; Complete Time: 15:41 03/30 17:08 Order name: Basic Metabolic Panel; Complete Time: 14:48 03/30 17:08 Order name: Protime (+inr); Complete Time: 17:37 jr8 03/30 17:08 Order name: Ptt, Activated; Complete Time: 17:37 jr8 03/30 14:15 Order name: CT Head Brain wo Cont; Complete Time: 14:59 jr8 03/30 17:08 Order name: IV jr8 Administered Medications: 20:00 Drug: Tylenol 650 mg Route: PO; kd3 Disposition: 03/31 07:04 Co-signature as Attending Physician, Geremias Hammer MD I agree with the assessment and rn plan of care. Attestation: The patient's history, exam findings, diagnostics, and a summary of any interventions or procedures was reviewed in detail with Dm LEIGH. Disposition Summary: 03/30/21 17:28 Transfer Ordered Transfer Location: [facility] jr8 Reason: Higher level of care jr8 Condition: Stable(03/30/21 17:28) jr8 Problem: new(03/30/21 17:28) jr8 Symptoms: are unchanged(03/30/21 17:28) jr8 Accepting Physician: Dr. Monroe(03/30/21 20:42) kd3 Diagnosis - Acute on chronic subdural hematoma jr8 Forms: - Medication Reconciliation Form jr8 - SBAR form jr8 Signatures: Dispatcher [employer] EDMS Geremias Hammer MD MD rn Roszak, Josh, PA PA jr8 Katie Soto RN RN kd3 Marizol Betancourt RN RN waters Corrections: (The following items were deleted from the chart) 03/30 15:03 15:01 Head/face: Right-sided parietal suture and debo noted. No dehiscence, no jr8 erythema, no discharge noted.. jr8 15:03 15:01 Neck: Trachea midline, no thyromegaly or masses palpated, and no cervical jr8 lymphadenopathy. Supple, full range of motion without nuchal rigidity, or vertebral point tenderness. No Meningismus. Chest/axilla: Normal chest wall appearance and motion. Nontender with no deformity. No lesions are appreciated. Cardiovascular: Regular rate and rhythm with a normal S1 and S2. No gallops, murmurs, or rubs. Normal PMI, no JVD. No pulse deficits. Respiratory: Lungs have equal breath sounds bilaterally, clear to auscultation and percussion. No rales, rhonchi or wheezes noted. No increased work of breathing, no retractions or nasal flaring. Abdomen/GI: Soft, non-tender, with normal bowel sounds. No distension or tympany. No guarding or rebound. No evidence of tenderness throughout. Back: No spinal tenderness. No costovertebral tenderness. Full range of motion. Skin: Warm, dry with normal turgor. Normal color with no rashes, no lesions, and no evidence of cellulitis. MS/ Extremity: Pulses equal, no cyanosis. Neurovascular intact. Full, normal range of motion. Neuro: Awake and alert, GCS 15, oriented to person, place, time, and situation. Cranial nerves II-XII grossly intact. Motor strength 5/5 in all extremities. Sensory grossly intact. jr8 17:06 16:26 Home jr8 jr8 17:06 16:26 new jr8 jr8 17:06 16:26 are unchanged jr8 jr8 17:06 16:26 Stable jr8 jr8 17:06 16:26 Acute on chronic subdural hemorrhage jr8 jr8 17:08 16:23 ED course: Spoke with family about the acute on chronic new blood component jr8 within the subdural. Most likely this is residual postprocedural but because he had an unwitnessed fall will be better to send him back for observation and reassessment with a CT scan in the morning. Family does not want to have to put him through this as he has had multiple surgeries secondary to continued subdural. Stated that they would [facility] where they can put him on hospice. The daughter is medical power of criminal defense attorney as patient has baseline dementia. Daughter presented medical power of criminal defense attorney to ED. Patient remains hemodynamically stable and without new focal deficit. I feel that this is reasonable at this time and will discharge patient back to [facility] where they can set up hospice care. jr8 20:42 17:28 Dr. Monroe jr8 kd3
[2021-03-30 17:31] LABS: Absolute Lymphocytes (CBC) 0.8 K/uL (0.7-4.9); Hematocrit 32.4 % (39.6-49.0); Lymphocytes % 8.1 % (15.3-44.8); MPV 7.9 fL (7.6-11.3); RBC Red Blood Cell Count 3.61 M/uL (4.33-5.43)
[2021-03-30 17:36] LABS: Protime INR 1.32
[2021-03-30 17:43] LABS: Potassium 3.3 mmol/L (3.5-5.1)
[2021-03-30] MEDS ORDERED: ACETAMINOPHEN 325 MG TABLET ONE (19:55)
[2021-03-30 21:08] VITALS: TEMP 97.6; O2SAT 99
[2021-03-30 21:09] VITALS: BP 123/61
== END 2021-03-30 20:42 | disposition short-term general hospital (02) ==
LOC: ER 13:26
DX: S06.5X0A Traumatic subdural hemorrhage without loss of consciousness, initial encounter (principal); M79.631 Pain in right forearm; W19.XXXA Unspecified fall, initial encounter; Z79.01 Long term (current) use of anticoagulants; Z79.82 Long term (current) use of aspirin; Z20.822 Contact with and (suspected) exposure to COVID-19; Z86.73 Personal history of transient ischemic attack (TIA), and cerebral infarction without residual deficits; Z88.5 Allergy status to narcotic agent; Z88.6 Allergy status to analgesic agent; Z88.8 Allergy status to other drugs, medicaments and biological substances; Z91.041 Radiographic dye allergy status
CPT/HCPCS: 85025; 80048; 36415; 85610; 85730; 70450; 73090; 99284; U0003

== ENCOUNTER 2021-05-02 11:38 | Emergency (ER) | payer OTHER ==
--- OUTSIDE RECORDS SUMMARY | 2021-05-02 11:44 | XMS REPORT | Continuity of Care Document ---
:1940 Author Organization [facility] t Address [address] [place] [address] Care Team Providers Name Role Phone YECENIA VILLATORO Primary Care Physician Unavailable [id number] Attending Clinician Unavailable ELOY Attending Clinician Unavailable JUAN MANUEL Attending Clinician Unavailable HANS MCKEON Attending Clinician Unavailable MELINDA Attending Clinician Unavailable LEON BRADLEY Attending Clinician Unavailable BASIL Attending Clinician Unavailable PIA STONE Attending Clinician Unavailable JL EDMONDS Attending Clinician Unavailable MICHELLE DA SILVA Attending Clinician Unavailable CHARIS STOVER Attending Clinician Unavailable Juan Manuel BABCOCK Attending Clinician BONY SMITH Attending Clinician Unavailable [id number] Admitting Clinician Unavailable ELOY Admitting Clinician Unavailable JUAN MANUEL Admitting Clinician Unavailable HANS MCKEON Admitting Clinician Unavailable LEON BRADLEY Admitting Clinician Unavailable MICHELLE DA SILVA Admitting Clinician Unavailable BONY SMITH Admitting Clinician Unavailable Payers Payer Name Policy Type Policy Number Effective Date Expiration Date S nic MEDICARE A B [id number] 2005 00:00:00 MCR MCR [id number] MEDICARE PART A [id number] 2005 \\T\\ B - MEDICARE 00:00:00 Problems Condition Condition Condition Status Onset Resolution Last Treating Co mments Source Name Details Category Date Date Treatment Clinician Date Hx of Hx of Disease Active [facility] exercise exercise 04-17 Colleg e stress stress 00:00: of test test 00 Medicin e Renal Renal Disease Active [facility] 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 00:00: of (HCCode) (HCCode) 00 Medici n e Allergies, Adverse Reactions, Alerts Allergy Allergy Status Severity Reaction(s) Onset Inactive Treating Comm ents Source Name Type Date Date Clinician Codeine Propensi Active [facility] ty to 04-17 [place] adverse 00:00: of reaction 00 Medicin s to e drug Kdc:Rains Propensi Active [facility] ow ty to 04-17 [place] Dye+Zipr adverse 00:00: of asidone+ reaction 00 Medici n Brillian s to e t Blue drug [facility]cf Iodine Propensi Active [facility] ty to 04-17 [place] adverse 00:00: of reaction 00 Medicin s to e drug Opioid Propensi Active [facility] Analgesi ty to 04-17 [place] cs adverse 00:00: of reaction 00 Medicin s to e drug CITRUS Allergy Active 2018-[address] [facility]ER[facility] Medical VES 00 Center CODEINE Allergy Active [facility] IODINATE Allergy Active [facility] D [facility] CONTRAST 00:00: Medical MEDIA 00 Center KIWI Allergy Active High Anaphylaxis [facility] (ACTINID 6-[facility] IA 00:00: Medical CHINENSI 00 Center S) MORPHINE Allergy Active [facility] QUETIAPI Allergy Active 2019- [facility] - FUMARATE 00:00: Medical 00 Center STRAWBER Allergy Active High Anaphylaxis 2019- [facility] ZIPRASID Allergy Active 2019- [facility] ONE [facility] - MESYLATE 00:[facility]: Medical 00 Center Codeine Propensi Active Other [facility] ty to 6-14 reaction( College adverse 00:00: s): chest of reaction 00 pain, Medicin s to N\\V, e drug Hives/Kevin hOther reaction( s): Hives/Kevin hOther reaction( s): Hives/Kevin h Kiwi Propensi Active Anaphylaxis Other [facility] of reaction 00 Anaphylax Medic in s to isThroat e drug swells, per ptThroat swells, per pt Morphine Propensi Active Other [facility] ty to 08-31 reaction( [place] adverse 00:00: s): of reaction 00 Anaphylax Medic in s to isOther e drug reaction( s): Anaphylax isOther reaction( s): Anaphylax is Quetiapi Propensi Active Other [facility] ne ty to 08-31 reaction( [place] Fumarate adverse 00:00: s): of reaction 00 extrapyra Medic in s to dimal e drug symptoms, UnknownOt her reaction( s): UnknownOt her reaction( s): Unknown Strawber Propensi Active Other [facility] suri ty to 08-31 reaction( [place] adverse 00:00: s): of reaction 00 Anaphylax Medic in s to is, e food Unknown Ziprasid Propensi Active Other [facility] one ty to 08-31 reaction( [place] Hydrochl adverse 00:00: s): of oride reaction 00 altered Medicin s to mental e drug status, agitation , extrapyra dimal symtomsOt her reaction( s): altered mental status, agitation Other reaction( s): altered mental status, agitation Social History Social Habit Start Date Stop Date Quantity Comments Source Tobacco use and 2019-04-17 2019-04-17 Smokeless tobacco [facility] exposure 00:00:00 00:00:00 non-user of Medicine Sex Ass[birth year] At [birth year] [facility] [employer] l[employer] 00:00:00 00:00:00 of Medicine Smoking Status Start Date Stop Date Source Never smoked tobacco [facility] of Medicine Medications Ordered Filled Start Stop Current Ordering Indication Dosage Frequency Signature Comments Components Source Medication Medication Date Date Medication? Clinician (SIG) Name Name fluticasone Yes 1{spray 1 [place] by [facility] (FLONASE) 04-16 } Nasal College 50 MCG/ACT 12:25: route. of nasal spray 28 Medicin e Mirabegron Yes 25mg Take 25 mg [facility] ER 25 MG 28 by mouth. Colleally e TB24 12:25: of 28 Medicin e atorvastati Yes 80mg Take 80 mg Quinn n (LIPITOR) 04-16 by mouth [place] [facility] 80 MG 12:25: daily. of tablet 28 Medicin e Calcium Yes Take by [facility] Acetate-Mag 04-16 mouth. Colleg e nesium Carb 12:25: of 450-200 MG 28 Medicin TABS e Mirabegron Yes 25mg Take 25 mg [facility] ER 04-17 by mouth. College (MYRBETRIQ) 17:28: of 25 MG TB24 46 Medicin e atorvastati 0 Yes 80mg Take 80 mg Quinn n (LIPITOR) 04-17 by mouth [place] [facility] 80 MG 17:28: daily. of tablet 46 Medicin e Calcium Yes Take by [facility] Acetate-Mag 04-17 mouth. Colleg e nesium Carb 17:28: of 450-200 MG 46 Medicin TABS e fluticasone Yes 1{spray 1 [place] by [facility] (FLONASE) 04-17 } Nasal [employer] 50 MCG/ACT 17:28: route. of nasal spray 46 Medicin e amlodipine Yes 10mg Take 10 mg [facility] (NORVASC) 904 by mouth. Colle ge 10 MG 00:00: of tablet 00 Medicin e losartan 2018-0 Yes AT BEDTIME [facility] (COAR) 50 9-04 College MG tablet 00:00: of 00 Medicin e amlodipine Yes 10mg Take 10 mg [facility] (NORVASC) 904 by mouth. Colle ge 10 MG 00:00: of tablet 00 Medicin e losartan 2019-0 Yes AT BEDTIME [facility] (COZAAR) 50 9-04 College MG tablet 00:00: of 00 Medicin e clopidogrel 2018-0 Yes 1{tbl} 1 Tab. [facility] (PLAVIX) 75 2-12 College MG Tablet 00:00: of 00 Medicin e clopidogrel 2018-0 Yes 1{tbl} 1 Tab. [facility] (PLAVIX) 75 2-12 College MG Tablet 00:00: of 00 Medicin e Vital Signs Vital Name Observation Time Observation Value Comments Source Systolic blood 2021-04-16 18:17:00 136 mm[Hg] [facility] College of pressure Medicine Diastolic blood 2021-04-16 18:17:00 71 mm[Hg] [facility] pressure Medicine Heart rate 2021-04-16 18:17:00 72 /min [facility] Body temperature 2021-04-16 18:17:00 36.17 [facility] Respiratory rate 2021-04-16 18:17:00 16 /min [facility] Body height 2021-04-16 18:17:00 175.3 cm [facility] Body weight 2021-04-16 18:17:00 74.844 kg [facility] BMI 2021-04-16 18:17:00 24.37 kg/m2 [facility] Oxygen saturation in 2021-04-16 18:17:00 97 /min [facility] blood by Medicine Pulse oximetry HEIGHT 2021-03-31 18:00:00 175.3 cm WEIGHT 2021-03-31 18:00:00 75.2 kg HEIGHT 2021-03-30 21:46:00 175.3 cm WEIGHT 2021-03-30 21:46:00 77.111 kg HEIGHT 2021-03-31 18:00:00 175.3 cm WEIGHT 2021-03-31 18:00:00 75.2 kg HEIGHT 2021-03-30 21:46:00 175.3 cm WEIGHT 2021-03-30 21:46:00 77.111 kg HEIGHT 2021-03-14 01:15:00 175.3 cm WEIGHT 2021-03-14 01:15:00 82.2 kg HEIGHT 2021-03-14 01:15:00 175.3 cm WEIGHT 2021-03-14 01:15:00 82.2 kg HEIGHT 2021-02-24 20:30:00 176.3 cm WEIGHT 2021-02-24 20:30:00 80.4 kg HEIGHT 2021-02-24 20:30:00 176.3 cm WEIGHT 2021-02-24 20:30:00 80.4 kg Systolic blood 2019-04-17 17:28:00 158 mm[Hg] [facility] pressure Medicine Diastolic blood 2019-04-17 17:28:00 78 mm[Hg] [facility] Medicine Heart rate 2019-04-17 17:28:00 69 /min [facility] Body weight 2019-04-17 17:28:00 78.472 kg [facility] Procedures This patient has no known procedures. Plan of Care Planned Activity Planned Date Details Comments Source Future Scheduled 2021-04-16 COVID-19 Vaccine (1) [facility] [employer] Test 13:24:17 [code = COVID-19 of Medicine Vaccine (1)] Future Scheduled 2021-04-16 TETANUS SHOT (ADULT) [facility] [employer] Test 13:24:17 [code = TETANUS SHOT of Medi cine (ADULT)] Future Scheduled 2021-04-16 ZOSTER VACCINE (1 of [facility] College Test 13:24:17 2) [code = ZOSTER of Medicin e VACCINE (1 of 2)] Future Scheduled 2021-04-16 MEDICARE AWV [facility] [facility] Test 13:24:17 (Initial) [code = of Medicin e MEDICARE AWV (Initial)] Future Scheduled 2021-04-16 Pneumococcal 65+ (1 [employer] Test 13:24:17 of 1 - PPSV23) [code of Medi cine = Pneumococcal 65+ (1 of 1 - PPSV23)] Future Scheduled 2021-04-16 FLU VACCINE > 6 [facility] ollege Test 13:24:17 MONTHS [code = FLU of Medici ne VACCINE > 6 MONTHS] Future Scheduled 2021-04-16 FALL SCREEN [code = [employer] Test 13:24:17 FALL SCREEN] of Medicine Future Scheduled 2021-04-16 CT HEAD WO CONTRAST 1 Occurrences [facility] [employer] Test 12:40:52 [code = 93818-1] starting of Medicine 04/16/2021 until 04/16/2022 Future Scheduled TETANUS SHOT (ADULT) [facility] [employer] Test [code = TETANUS SHOT of Medi cine (ADULT)] Future Scheduled MEDICARE AWV [facility] [place] [facility] Test (Initial) [code = of Medicin e MEDICARE AWV (Initial)] Future Scheduled FALL SCREEN [code = [employer] Test FALL SCREEN] of Medicine Future Scheduled PNEUMOVAX >=65 [facility] Co llege Test (PPSV23) [code = of Medicine PNEUMOVAX >=65 (PPSV23)] Future Scheduled PREVNAR >= 65 [facility] Col lege Test (PCV13) [code = of Medicine PREVNAR >= 65 (PCV13)] Future Scheduled FLU VACCINE > 6 [facility] C ollege Test MONTHS [code = FLU of Medici ne VACCINE > 6 MONTHS] Encounters Start End Encounter Admission Attending Care Care Encounter Source Date/Time Date/Time Type Type Clinicians Facility Department ID 2021-04-15 Outpatient [id number] [facility] REF [id number] [facility] 13:44:55 0118 2021-03-30 Inpatient ER [facility] Neurosurger [id number] 15:51:19 [facility] 2021-03-16 Inpatient ER ELOY, [facility] Neuro ICU [id number] 11:23:09 [facility] 2020-12-22 Inpatient LISA ZAMBRANO [facility] Surgery [id number] [facility] 15:37:42 ERNESTINE 2021-04-07 2021-04-23 Inpatient 3 MIKE, [place] [id number] [facility] 19:19:00 13:25:00 HANS 0119 2021-04-16 2021-04-16 Office SHASHA LAWRENCE [id number] [facility] 12:09:26 14:59:30 Visit JARETT AMBULATOR [id number] College Y 0.2.7.2.686 of [id number] Medi jessi 300 e 2021-03-30 2021-04-07 Inpatient ER CHRISTINA GRACIA [facility] Surgery [id number] [facility] 21:12:00 18:41:00 2021-03-30 2021-03-[address] [facility] [id number] [facility] 21:12:00 23:59:00 Aj leavitt of Medicin e 2021-03-15 2021-03-15 Outpatient LISA STONE [facility] [id number] [facility] 00:00:00 23:59:00 [facility] 2021-03-14 2021-03-15 Inpatient ER KENDAL [facility] Neuro ICU [id number] [facility] 01:11:00 12:29:00 CE 2021-02-24 2021-02-27 Inpatient ER JOSELITOLORETTA HENDRIXED [facility] Surgery [id number] [facility] 19:54:00 17:51:00 2019-08-15 2019-08-15 Outpatient EL [facility] [id number] [facility] 00:00:00 00:00:00 2019-08-13 2019-08-13 Outpatient [facility] [id number] [facility] 00:00:00 00:00:00 [id number] 2019-06-17 2019-06-17 Outpatient [facility] [id number] [facility] 00:00:00 00:00:00 [id number] 2019-04-17 2019-04-17 Office SHASHA Zambrano [id number] [facility] 11:16:47 14:53:18 Visit Jayer AMBULATOR 350.1.13.21 College Y 0.2.7.2.686 of [id number] Medi jessi 825 e Results Test Description Test Time Test Comments Results Result Comments Source FUNGUS CULTURE + SMEAR 2021-04-28 00:24:25 Test Item Value Reference Range Interpretation Comme nts CULTURE (BEAKER) (test code = 1095) No fungus isolated in 28 days FUNGUS SMEAR (BEAKER) (test code = 1406) No fungal elements seen FUNGUS CULTURE + [id number] 00:24:25 Test Item Value Reference Range Interpretation Comments CULTURE (BEAKER) (test No fungus isolated in code = 1095) 28 days FUNGUS SMEAR (BEAKER) No fungal elements seen (test code = 1406) FUNGUS CULTURE + [id number] 00:23:23 Test Item Value Reference Range Interpretation Comments CULTURE (BEAKER) (test No fungus isolated in code = 1095) 28 days FUNGUS SMEAR (BEAKER) No fungal elements seen (test code = 1406) FUNGUS CULTURE + [id number] 00:23:23 Test Item Value Reference Range Interpretation Comments CULTURE (BEAKER) (test No fungus isolated in code = 1095) 28 days FUNGUS SMEAR (BEAKER) No fungal elements seen (test code = 1406) FUNGUS CULTURE + [id number] 00:23:23 Test Item Value Reference Range Interpretation Comments CULTURE (BEAKER) (test No fungus isolated in code = 1095) 28 days FUNGUS SMEAR (BEAKER) No fungal elements seen (test code = 1406) TISSUE [id number] 17:24:26Surgical Pathology Report Case: [id number] Authorizing Provider: Chi Stone MD Collected: 03/31/2021 02:55 PM Ordering Location: [facility] PERIOPERATIVE Received: 04/01/2021 08:14 AM SERVICES Pathologist: Zeferino Warner MD Specimen: Bone, Right frontal bone BONE, SKULL CRANIECTOMY:WOVEN BONE, WITHOUT INTRAMEDULLARY INFLAMMTIONFRAGMENTS OF GRANULATION TISSUE WITH DEGENERATEDBONE, WITH MILD ACUTE AND CHRONIC INFLAMMATION Signing Pathologist Direct Phone Line: [phone] signed by Zeferino Warner MD on 04/11/2021 at 5:24 PMRecommend follow-up of microbiologic cultures. [id number]; [id number] empyemaSkull, right frontalA. Received fresh labeled with the patient's name, medical record number and "bone" is a 10.2 x 5.7 x 0.6 cm irregular portion of blanton skull with a scant amount of periosteum. The specimen is sectioned and no gross lesions are identified. Science Technicians sections are submitted in A1-A2, following decalcification.PRESTON Gay, REESE (A SCP)cmPERFORMEDANAEROBIC [id number] 11:21:45 Test Item Value Reference Range Interpretation Comments CULTURE (BEAKER) (test No anaerobes isolated code = 1095) IRON, TIBC, % SAT. (WITHOUT FERRITIN)2021-04-07 04:53:51 Test Item Value Reference Range Interpretation Comments IRON (BEAKER) (test code = 547) 40.0 ug/dL 40.0-160.0 TOTAL IRON BINDING CAPACITY 199 ug/dL 250-450 L (BEAKER) (test code = 769) IRON % SATURATION (2) (BEAKER) 20 % 20-55 (test code = 2590) Bartender Helper ID - JENNIFER [id number] 04:25:07 Test Item Value Reference Range Interpretation Comments FERRITIN (BEAKER) (test code = 209.36 ng/mL 5.00-275.00 361) Bartender Helper ID - JENNIFER WVITAMIN B12 AND [id number] 04:25:07 Test Item Value Reference Range Interpretation Comments VITAMIN B12 552 pg/mL 213-816 (BEAKER) (test code = 774) FOLATE (BEAKER) 12.00 ng/mL See_Comment [Automated message] (test code = 362) The system which generated this result transmitted ref erence range: >=7.00. The reference range was not used to interpr et this result as normal/abnormal . Bartender Helper ID - JENNIFER [id number] 03:45:59 Test Item Value Reference Range Interpretation Comments MAGNESIUM (BEAKER) (test code = 2.1 mg/dL 1.6-2.6 627) Bartender Helper ID - ISAK MBASIC METABOLIC [id number] 03:45:58 Test Item Value Reference Range Interpretation Comments SODIUM (BEAKER) 138 meq/L 136-145 (test code = 381) POTASSIUM (BEAKER) 4.0 meq/L 3.5-5.1 (test code = 379) CHLORIDE (BEAKER) 105 meq/L 98-107 (test code = 382) CO2 (BEAKER) (test 28 meq/L 22-29 code = 355) BLOOD UREA NITROGEN 10 mg/dL 7-21 (BEAKER) (test code = 354) CREATININE (BEAKER) 0.67 mg/dL 0.57-1.25 (test code = 358) GLUCOSE RANDOM 107 mg/dL 70-105 H (BEAKER) (test code = 652) CALCIUM (BEAKER) 8.2 mg/dL 8.4-10.2 L (test code = 697) EGFR (BEAKER) (test 114 mL/min/1.73 ESTIM ATED GFR IS code = 1092) sq m NOT ACCURATE CREATININE CLEARANCE IN PREDICTING GLOMERULAR FILTRATION RATE . ESTIMATED GFR I S NOT APPLICABLE FOR DIALYSIS PATIEN TS. Bartender Helper ID - ISAK MCBC W/PLT COUNT & AUTO [id number] 03:22:50 Test Item Value Reference Range Interpretation Comments WHITE BLOOD CELL COUNT (BEAKER) 6.8 K/ L 3.5-10.5 (test code = 775) RED BLOOD CELL COUNT (BEAKER) 2.63 M/ L 4.63-6.08 L (test code = 761) HEMOGLOBIN (BEAKER) (test code = 8.0 GM/DL 13.7-17.5 L 410) HEMATOCRIT (BEAKER) (test code = 24.8 % 40.1-51.0 L 411) MEAN CORPUSCULAR VOLUME (BEAKER) 94.3 fL 79.0-92.2 H (test code = 753) MEAN CORPUSCULAR HEMOGLOBIN 30.4 pg 25.7-32.2 (BEAKER) (test code = 751) MEAN CORPUSCULAR HEMOGLOBIN CONC 32.3 GM/DL 32.3-36.5 (BEAKER) (test code = 752) RED CELL DISTRIBUTION WIDTH 14.9 % 11.6-14.4 H (BEAKER) (test code = 412) PLATELET COUNT (BEAKER) (test 221 K/CU MM 150-450 code = 756) MEAN PLATELET VOLUME (BEAKER) 10.0 fL 9.4-12.4 (test code = 754) NUCLEATED RED BLOOD CELLS 0 /100 WBC 0-0 (BEAKER) (test code = 413) NEUTROPHILS RELATIVE PERCENT 67 % (BEAKER) (test code = 429) LYMPHOCYTES RELATIVE PERCENT 20 % (BEAKER) (test code = 430) MONOCYTES RELATIVE PERCENT 10 % (BEAKER) (test code = 431) EOSINOPHILS RELATIVE PERCENT 2 % (BEAKER) (test code = 432) BASOPHILS RELATIVE PERCENT 0 % (BEAKER) (test code = 437) NEUTROPHILS ABSOLUTE COUNT 4.55 K/ L 1.78-5.38 (BEAKER) (test code = 670) LYMPHOCYTES ABSOLUTE COUNT 1.38 K/ L 1.32-3.57 (BEAKER) (test code = 414) MONOCYTES ABSOLUTE COUNT (BEAKER) 0.70 K/ L 0.30-0.82 (test code = 415) EOSINOPHILS ABSOLUTE COUNT 0.11 K/ L 0.04-0.54 (BEAKER) (test code = 416) BASOPHILS ABSOLUTE COUNT (BEAKER) 0.02 K/ L 0.01-0.08 (test code = 417) IMMATURE GRANULOCYTES-RELATIVE 1 % 0-1 PERCENT (BEAKER) (test code = 2801) [id number] 04:29:13 Test Item Value Reference Range Interpretation Comments MAGNESIUM (BEAKER) (test code = 2.1 mg/dL 1.6-2.6 627) Bartender Helper ID - PIAYA LBASIC METABOLIC [id number] 04:29:12 Test Item Value Reference Range Interpretation Comments SODIUM (BEAKER) 136 meq/L 136-145 (test code = 381) POTASSIUM (BEAKER) 3.0 meq/L 3.5-5.1 L (test code = 379) CHLORIDE (BEAKER) 104 meq/L 98-107 (test code = 382) CO2 (BEAKER) (test 28 meq/L 22-29 code = 355) BLOOD UREA NITROGEN 14 mg/dL 7-21 (BEAKER) (test code = 354) CREATININE (BEAKER) 0.74 mg/dL 0.57-1.25 (test code = 358) GLUCOSE RANDOM 122 mg/dL 70-105 H (BEAKER) (test code = 652) CALCIUM (BEAKER) 8.1 mg/dL 8.4-10.2 L (test code = 697) EGFR (BEAKER) (test 102 mL/min/1.73 ESTIM ATED GFR IS code = 1092) sq m NOT ACCURATE CREATININE CLEARANCE IN PREDICTING GLOMERULAR FILTRATION RATE . ESTIMATED GFR I S NOT APPLICABLE FOR DIALYSIS PATIEN TS. Bartender Helper ID - PIAYA LCBC W/PLT COUNT & AUTO [id number] 03:53:16 Test Item Value Reference Range Interpretation Comments WHITE BLOOD CELL COUNT (BEAKER) 6.9 K/ L 3.5-10.5 (test code = 775) RED BLOOD CELL COUNT (BEAKER) 2.65 M/ L 4.63-6.08 L (test code = 761) HEMOGLOBIN (BEAKER) (test code = 7.8 GM/DL 13.7-17.5 L 410) HEMATOCRIT (BEAKER) (test code = 24.1 % 40.1-51.0 L 411) MEAN CORPUSCULAR VOLUME (BEAKER) 90.9 fL 79.0-92.2 (test code = 753) MEAN CORPUSCULAR HEMOGLOBIN 29.4 pg 25.7-32.2 (BEAKER) (test code = 751) MEAN CORPUSCULAR HEMOGLOBIN CONC 32.4 GM/DL 32.3-36.5 (BEAKER) (test code = 752) RED CELL DISTRIBUTION WIDTH 14.6 % 11.6-14.4 H (BEAKER) (test code = 412) PLATELET COUNT (BEAKER) (test 213 K/CU MM 150-450 code = 756) MEAN PLATELET VOLUME (BEAKER) 10.1 fL 9.4-12.4 (test code = 754) NUCLEATED RED BLOOD CELLS 0 /100 WBC 0-0 (BEAKER) (test code = 413) NEUTROPHILS RELATIVE PERCENT 68 % (BEAKER) (test code = 429) LYMPHOCYTES RELATIVE PERCENT 18 % (BEAKER) (test code = 430) MONOCYTES RELATIVE PERCENT 10 % (BEAKER) (test code = 431) EOSINOPHILS RELATIVE PERCENT 2 % (BEAKER) (test code = 432) BASOPHILS RELATIVE PERCENT 0 % (BEAKER) (test code = 437) NEUTROPHILS ABSOLUTE COUNT 4.69 K/ L 1.78-5.38 (BEAKER) (test code = 670) LYMPHOCYTES ABSOLUTE COUNT 1.25 K/ L 1.32-3.57 L (BEAKER) (test code = 414) MONOCYTES ABSOLUTE COUNT (BEAKER) 0.68 K/ L 0.30-0.82 (test code = 415) EOSINOPHILS ABSOLUTE COUNT 0.11 K/ L 0.04-0.54 (BEAKER) (test code = 416) BASOPHILS ABSOLUTE COUNT (BEAKER) 0.02 K/ L 0.01-0.08 (test code = 417) IMMATURE GRANULOCYTES-RELATIVE 2 % 0-1 H PERCENT (BEAKER) (test code = 2801) RAD, CHEST, PA OR AP, 1 [id number] 15:58:00VAT/Infusion Therapy Nurse to Call Radiology Department when patient is readyReason for exam:->picc placementShould this be performed at the bedside?->Yes [facility] : 1940 Sex: MFINAL REPORT Chest, one view. HISTORY: picc placement COMPARISON: Radiograph from 03/14/2021 IMPRESSION: Interval placement of a right PICC with the tip over the upper SVC. There are streaky opacities throughout the left lung which are likely a combination of atelectasis and scar. The right lung is clear. There is likely a small left pleural effusion. No pneumothorax. The cardiac silhouette is unchanged in size. No acute bone abnormality. Signed: Meg Figueroa MDReport Verified Date/Time: 04/05/2021 15:58:37 Reading Location: [facility] Radiology Reading Room BLOOD [id number] 13:00:19 Test Item Value Reference Range Interpretation Comments CULTURE (BEAKER) (test No growth in 5 days code = 1095) BLOOD [id number] 13:00:19 Test Item Value Reference Range Interpretation Comments CULTURE (BEAKER) (test No growth in 5 days code = 1095) The specimen volume collected for this blood culture was below the optimum (10 mL per bottle or 20 mL total). Use of lower volumes may adversely affect recovery and/or detection times of some organisms.ANAEROBIC [id number] 08:19:23 Test Item Value Reference Range Interpretation Comments CULTURE (BEAKER) (test No anaerobes isolated code = 1095) BASIC METABOLIC [id number] 05:57:41 Test Item Value Reference Range Interpretation Comments SODIUM (BEAKER) 138 meq/L 136-145 (test code = 381) POTASSIUM (BEAKER) 3.3 meq/L 3.5-5.1 L (test code = 379) CHLORIDE (BEAKER) 105 meq/L 98-107 (test code = 382) CO2 (BEAKER) (test 30 meq/L 22-29 H code = 355) BLOOD UREA NITROGEN 11 mg/dL 7-21 (BEAKER) (test code = 354) CREATININE (BEAKER) 0.66 mg/dL 0.57-1.25 (test code = 358) GLUCOSE RANDOM 110 mg/dL 70-105 H (BEAKER) (test code = 652) CALCIUM (BEAKER) 8.4 mg/dL 8.4-10.2 (test code = 697) EGFR (BEAKER) (test 116 mL/min/1.73 ESTIM ATED GFR IS code = 1092) sq m NOT ACCURATE CREATININE CLEARANCE IN PREDICTING GLOMERULAR FILTRATION RATE . ESTIMATED GFR I S NOT APPLICABLE FOR DIALYSIS PATIEN TS. Bartender Helper ID - PITRACIE [id number] 05:57:41 Test Item Value Reference Range Interpretation Comments MAGNESIUM (BEAKER) (test code = 2.2 mg/dL 1.6-2.6 627) Bartender Helper ID - LELIA LCBC W/PLT COUNT & AUTO [id number] 05:27:21 Test Item Value Reference Range Interpretation Comments WHITE BLOOD CELL COUNT (BEAKER) 6.8 K/ L 3.5-10.5 (test code = 775) RED BLOOD CELL COUNT (BEAKER) 3.01 M/ L 4.63-6.08 L (test code = 761) HEMOGLOBIN (BEAKER) (test code = 8.8 GM/DL 13.7-17.5 L 410) HEMATOCRIT (BEAKER) (test code = 27.9 % 40.1-51.0 L 411) MEAN CORPUSCULAR VOLUME (BEAKER) 92.7 fL 79.0-92.2 H (test code = 753) MEAN CORPUSCULAR HEMOGLOBIN 29.2 pg 25.7-32.2 (BEAKER) (test code = 751) MEAN CORPUSCULAR HEMOGLOBIN CONC 31.5 GM/DL 32.3-36.5 L (BEAKER) (test code = 752) RED CELL DISTRIBUTION WIDTH 14.5 % 11.6-14.4 H (BEAKER) (test code = 412) PLATELET COUNT (BEAKER) (test 224 K/CU MM 150-450 code = 756) MEAN PLATELET VOLUME (BEAKER) 10.1 fL 9.4-12.4 (test code = 754) NUCLEATED RED BLOOD CELLS 0 /100 WBC 0-0 (BEAKER) (test code = 413) NEUTROPHILS RELATIVE PERCENT 68 % (BEAKER) (test code = 429) LYMPHOCYTES RELATIVE PERCENT 18 % (BEAKER) (test code = 430) MONOCYTES RELATIVE PERCENT 11 % (BEAKER) (test code = 431) EOSINOPHILS RELATIVE PERCENT 2 % (BEAKER) (test code = 432) BASOPHILS RELATIVE PERCENT 0 % (BEAKER) (test code = 437) NEUTROPHILS ABSOLUTE COUNT 4.62 K/ L 1.78-5.38 (BEAKER) (test code = 670) LYMPHOCYTES ABSOLUTE COUNT 1.24 K/ L 1.32-3.57 L (BEAKER) (test code = 414) MONOCYTES ABSOLUTE COUNT (BEAKER) 0.72 K/ L 0.30-0.82 (test code = 415) EOSINOPHILS ABSOLUTE COUNT 0.14 K/ L 0.04-0.54 (BEAKER) (test code = 416) BASOPHILS ABSOLUTE COUNT (BEAKER) 0.02 K/ L 0.01-0.08 (test code = 417) IMMATURE GRANULOCYTES-RELATIVE 1 % 0-1 PERCENT (BEAKER) (test code = 2801) ANAEROBIC [id number] 10:52:29 Test Item Value Reference Range Interpretation Comments CULTURE (BEAKER) (test No anaerobes isolated code = 1095) ANAEROBIC [id number] 10:50:37 Test Item Value Reference Range Interpretation Comments CULTURE (BEAKER) (test No anaerobes isolated code = 1095) BASIC METABOLIC [id number] 04:06:33 Test Item Value Reference Range Interpretation Comments SODIUM (BEAKER) 136 meq/L 136-145 (test code = 381) POTASSIUM (BEAKER) 3.4 meq/L 3.5-5.1 L (test code = 379) CHLORIDE (BEAKER) 103 meq/L 98-107 (test code = 382) CO2 (BEAKER) (test 26 meq/L 22-29 code = 355) BLOOD UREA NITROGEN 10 mg/dL 7-21 (BEAKER) (test code = 354) CREATININE (BEAKER) 0.67 mg/dL 0.57-1.25 (test code = 358) GLUCOSE RANDOM 118 mg/dL 70-105 H (BEAKER) (test code = 652) CALCIUM (BEAKER) 8.4 mg/dL 8.4-10.2 (test code = 697) EGFR (BEAKER) (test 114 mL/min/1.73 ESTIM ATED GFR IS code = 1092) sq m NOT ACCURATE CREATININE CLEARANCE IN PREDICTING GLOMERULAR FILTRATION RATE . ESTIMATED GFR I S NOT APPLICABLE FOR DIALYSIS PATIEN TS. Bartender Helper ID - LELIA [id number] 04:06:33 Test Item Value Reference Range Interpretation Comments MAGNESIUM (BEAKER) (test code = 2.1 mg/dL 1.6-2.6 627) Bartender Helper ID - LELIA LCBC W/PLT COUNT & AUTO [id number] 03:35:05 Test Item Value Reference Range Interpretation Comments WHITE BLOOD CELL COUNT (BEAKER) 8.1 K/ L 3.5-10.5 (test code = 775) RED BLOOD CELL COUNT (BEAKER) 2.98 M/ L 4.63-6.08 L (test code = 761) HEMOGLOBIN (BEAKER) (test code = 8.8 GM/DL 13.7-17.5 L 410) HEMATOCRIT (BEAKER) (test code = 27.4 % 40.1-51.0 L 411) MEAN CORPUSCULAR VOLUME (BEAKER) 91.9 fL 79.0-92.2 (test code = 753) MEAN CORPUSCULAR HEMOGLOBIN 29.5 pg 25.7-32.2 (BEAKER) (test code = 751) MEAN CORPUSCULAR HEMOGLOBIN CONC 32.1 GM/DL 32.3-36.5 L (BEAKER) (test code = 752) RED CELL DISTRIBUTION WIDTH 14.4 % 11.6-14.4 (BEAKER) (test code = 412) PLATELET COUNT (BEAKER) (test 217 K/CU MM 150-450 code = 756) MEAN PLATELET VOLUME (BEAKER) 9.7 fL 9.4-12.4 (test code = 754) NUCLEATED RED BLOOD CELLS 0 /100 WBC 0-0 (BEAKER) (test code = 413) NEUTROPHILS RELATIVE PERCENT 71 % (BEAKER) (test code = 429) LYMPHOCYTES RELATIVE PERCENT 14 % (BEAKER) (test code = 430) MONOCYTES RELATIVE PERCENT 12 % (BEAKER) (test code = 431) EOSINOPHILS RELATIVE PERCENT 1 % (BEAKER) (test code = 432) BASOPHILS RELATIVE PERCENT 0 % (BEAKER) (test code = 437) NEUTROPHILS ABSOLUTE COUNT 5.81 K/ L 1.78-5.38 H (BEAKER) (test code = 670) LYMPHOCYTES ABSOLUTE COUNT 1.12 K/ L 1.32-3.57 L (BEAKER) (test code = 414) MONOCYTES ABSOLUTE COUNT (BEAKER) 0.97 K/ L 0.30-0.82 H (test code = 415) EOSINOPHILS ABSOLUTE COUNT 0.11 K/ L 0.04-0.54 (BEAKER) (test code = 416) BASOPHILS ABSOLUTE COUNT (BEAKER) 0.02 K/ L 0.01-0.08 (test code = 417) IMMATURE GRANULOCYTES-RELATIVE 1 % 0-1 PERCENT (BEAKER) (test code = 2801) SURGICALLY OBTAINED CULTURE + GRAM [id number] 11:47:50 Test Item Value Reference Range Interpretation Comments CULTURE (BEAKER) (test No growth code = 1095) GRAM STAIN RESULT <1+ White blood cells (BEAKER) (test code = seen 1123) GRAM STAIN RESULT No organisms seen (BEAKER) (test code = 77160) SURGICALLY OBTAINED CULTURE + GRAM [id number] 11:19:28 Test Item Value Reference Range Interpretation Comments CULTURE A From Broth Only Same (BEAKER) (test organism has been code = 1095) isolated from cultures(s) of the same body site and collection date . Repeat identifi cation and susceptibil ity testing perform ed only after consultat ion with the [facility].Refe r to previous cultur e ofSerratia perez escens GRAM STAIN 2+ White blood RESULT (BEAKER) cells seen (test code = 1123) GRAM STAIN No organisms seen RESULT (BEAKER) (test code = 289566) SURGICALLY OBTAINED CULTURE + GRAM [id number] 11:17:25 Test Item Value Reference Range Interpretation Comments CULTURE (BEAKER) (test code No growth = 1095) GRAM STAIN RESULT (BEAKER) 3+ WBCs (test code = 1123) GRAM STAIN RESULT (BEAKER) No organisms seen (test code = 208514) SURGICALLY OBTAINED CULTURE + GRAM [id number] 11:12:56 Test Item Value Reference Range Interpretation Comments CULTURE (BEAKER) (test SERRATIA A <1+ S erratia code = 1095) MARCESCENS marcescens Amikacin (test code = S 1) Aztreonam (test code = S 32) Cefepime (test code = S 51) Cefoxitin (test code = R 68) Ceftazidime (test code S = 27) Ceftriaxone (test code S = 52) Ertapenem (test code = S 38) Gentamicin (test code = S 18) Levofloxacin (test code S = 22) Meropenem (test code = S 34) Nitrofurantoin (test R code = 23) Tetracycline (test code S = 2) Tobramycin (test code = S 25) Trimethoprim + S Sulfamethoxazole (test code = 47) GRAM STAIN RESULT 2+ White blood (BEAKER) (test code = cells seen 1123) GRAM STAIN RESULT No organisms (BEAKER) (test code = seen 801950) SURGICALLY OBTAINED CULTURE + GRAM [id number] 11:05:25 Test Item Value Reference Range Interpretation Comments CULTURE A From Broth Only Same (BEAKER) (test organism has been code = 1095) isolated from cultures(s) of the same body site and collection date . Repeat identifi cation and susceptibil ity testing perform ed only after consultat ion with the [facility] laboratory.Refe r to previous cultur e ofSerratia perez escens GRAM STAIN 2+ White blood RESULT (BEAKER) cells seen (test code = 1123) GRAM STAIN No organisms seen RESULT (BEAKER) (test code = 626300) CT, BRAIN, WITHOUT [id number] 10:52:00Unlisted Reason for Exam - Click Yes and Enter Reason Below->No [facility] : 1940 Sex: MFINAL REPORT CT, BRAIN, WITHOUT CONTRAST CLINICAL INDICATION: Intraop or postop complications, nervous system COMPARISON: None TECHNIQUE: Noncontrast axial CT imaging of the brain and skull. DOSE REDUCTION: Dose modulation, iterative reconstruction, and/or weight-based adjustment of the mA/kV was utilized to reduce the radiation dose to as low as reasonably achievable. FINDINGS:Status post right frontoparietal craniectomy. Interval removal of subdural drain. Residual extra-axial pneumocephalus and mixed density hematoma is decreased in thickness in the interim and there is consequent decrease midline shift, formerly 7 mm and now 4 mm. Effacement of the right lateral ventricle is similarly decreased. Background mild senescent parenchymal volume loss is again noted. Scattered foci of hypoattenuation are present throughout the periventricular and subcortical white matter, and, although nonspecific by imaging, statistically represent mild chronic microvascular ischemic changes in this age group. No hydrocephalus. Orbits are within normal limits. No obstructive paranasal sinus disease. Atherosclerotic calcification of the intracranial internal carotid and vertebral arteries. IMPRESSION: Status post right frontal parietal craniectomy for drainage of hematoma. Subdural drain has been removed in the interim. Decreased size of residual extra-axial mixed intensityhematoma and pneumocephalus with consequent decrease midline shift. If there is persistent clinical concern for intracranial pathology, MR examination is recommended for further characterization. Signed: Shanelle Chapa MDReport Verified Date/Time: 04/03/2021 10:52:21 ANAEROBIC [id number] 08:43:30 Test Item Value Reference Range Interpretation Comments CULTURE (BEAKER) (test No anaerobes isolated code = 1095) [id number] 05:44:59 Test Item Value Reference Range Interpretation Comments PHOSPHORUS (BEAKER) (test code = 2.4 mg/dL 2.3-4.7 604) Bartender Helper ID - ISAK MBASIC METABOLIC [id number] 05:44:58 Test Item Value Reference Range Interpretation Comments SODIUM (BEAKER) 135 meq/L 136-145 L (test code = 381) POTASSIUM (BEAKER) 3.4 meq/L 3.5-5.1 L (test code = 379) CHLORIDE (BEAKER) 102 meq/L 98-107 (test code = 382) CO2 (BEAKER) (test 26 meq/L 22-29 code = 355) BLOOD UREA NITROGEN 11 mg/dL 7-21 (BEAKER) (test code = 354) CREATININE (BEAKER) 0.66 mg/dL 0.57-1.25 (test code = 358) GLUCOSE RANDOM 116 mg/dL 70-105 H (BEAKER) (test code = 652) CALCIUM (BEAKER) 8.2 mg/dL 8.4-10.2 L (test code = 697) EGFR (BEAKER) (test 116 mL/min/1.73 ESTIM ATED GFR IS code = 1092) sq m NOT ACCURATE CREATININE CLEARANCE IN PREDICTING GLOMERULAR FILTRATION RATE . ESTIMATED GFR I S NOT APPLICABLE FOR DIALYSIS PATIEN TS. Bartender Helper ID - ISAK [id number] 05:44:58 Test Item Value Reference Range Interpretation Comments MAGNESIUM (BEAKER) (test code = 2.1 mg/dL 1.6-2.6 627) Bartender Helper ID - ISAK MCBC W/PLT COUNT & AUTO [id number] 05:27:07 Test Item Value Reference Range Interpretation Comments WHITE BLOOD CELL COUNT (BEAKER) 8.8 K/ L 3.5-10.5 (test code = 775) RED BLOOD CELL COUNT (BEAKER) 2.77 M/ L 4.63-6.08 L (test code = 761) HEMOGLOBIN (BEAKER) (test code = 8.1 GM/DL 13.7-17.5 L 410) HEMATOCRIT (BEAKER) (test code = 26.2 % 40.1-51.0 L 411) MEAN CORPUSCULAR VOLUME (BEAKER) 94.6 fL 79.0-92.2 H (test code = 753) MEAN CORPUSCULAR HEMOGLOBIN 29.2 pg 25.7-32.2 (BEAKER) (test code = 751) MEAN CORPUSCULAR HEMOGLOBIN CONC 30.9 GM/DL 32.3-36.5 L (BEAKER) (test code = 752) RED CELL DISTRIBUTION WIDTH 14.3 % 11.6-14.4 (BEAKER) (test code = 412) PLATELET COUNT (BEAKER) (test 220 K/CU MM 150-450 code = 756) MEAN PLATELET VOLUME (BEAKER) 9.8 fL 9.4-12.4 (test code = 754) NUCLEATED RED BLOOD CELLS 0 /100 WBC 0-0 (BEAKER) (test code = 413) NEUTROPHILS RELATIVE PERCENT 73 % (BEAKER) (test code = 429) LYMPHOCYTES RELATIVE PERCENT 12 % (BEAKER) (test code = 430) MONOCYTES RELATIVE PERCENT 13 % (BEAKER) (test code = 431) EOSINOPHILS RELATIVE PERCENT 1 % (BEAKER) (test code = 432) BASOPHILS RELATIVE PERCENT 0 % (BEAKER) (test code = 437) NEUTROPHILS ABSOLUTE COUNT 6.40 K/ L 1.78-5.38 H (BEAKER) (test code = 670) LYMPHOCYTES ABSOLUTE COUNT 1.04 K/ L 1.32-3.57 L (BEAKER) (test code = 414) MONOCYTES ABSOLUTE COUNT (BEAKER) 1.10 K/ L 0.30-0.82 H (test code = 415) EOSINOPHILS ABSOLUTE COUNT 0.12 K/ L 0.04-0.54 (BEAKER) (test code = 416) BASOPHILS ABSOLUTE COUNT (BEAKER) 0.02 K/ L 0.01-0.08 (test code = 417) IMMATURE GRANULOCYTES-RELATIVE 1 % 0-1 PERCENT (BEAKER) (test code = 2801) CBC (HEMOGRAM ONLY)2021-04-02 16:16:29 Test Item Value Reference Range Interpretation Comments WHITE BLOOD CELL COUNT (BEAKER) 11.8 K/ L 3.5-10.5 H (test code = 775) RED BLOOD CELL COUNT (BEAKER) 2.75 M/ L 4.63-6.08 L (test code = 761) HEMOGLOBIN (BEAKER) (test code = 8.1 GM/DL 13.7-17.5 L 410) HEMATOCRIT (BEAKER) (test code = 25.5 % 40.1-51.0 L 411) MEAN CORPUSCULAR VOLUME (BEAKER) 92.7 fL 79.0-92.2 H (test code = 753) MEAN CORPUSCULAR HEMOGLOBIN 29.5 pg 25.7-32.2 (BEAKER) (test code = 751) MEAN CORPUSCULAR HEMOGLOBIN CONC 31.8 GM/DL 32.3-36.5 L (BEAKER) (test code = 752) RED CELL DISTRIBUTION WIDTH 14.4 % 11.6-14.4 (BEAKER) (test code = 412) PLATELET COUNT (BEAKER) (test 231 K/CU MM 150-450 code = 756) MEAN PLATELET VOLUME (BEAKER) 9.9 fL 9.4-12.4 (test code = 754) NUCLEATED RED BLOOD CELLS 0 /100 WBC 0-0 (BEAKER) (test code = 413) BASIC METABOLIC [id number] 05:23:34 Test Item Value Reference Range Interpretation Comments SODIUM (BEAKER) 136 meq/L 136-145 (test code = 381) POTASSIUM (BEAKER) 3.4 meq/L 3.5-5.1 L (test code = 379) CHLORIDE (BEAKER) 107 meq/L 98-107 (test code = 382) CO2 (BEAKER) (test 23 meq/L 22-29 code = 355) BLOOD UREA NITROGEN 11 mg/dL 7-21 (BEAKER) (test code = 354) CREATININE (BEAKER) 0.63 mg/dL 0.57-1.25 (test code = 358) GLUCOSE RANDOM 136 mg/dL 70-105 H (BEAKER) (test code = 652) CALCIUM (BEAKER) 7.5 mg/dL 8.4-10.2 L (test code = 697) EGFR (BEAKER) (test 123 mL/min/1.73 ESTIM ATED GFR IS code = 1092) sq m NOT ACCURATE CREATININE CLEARANCE IN PREDICTING GLOMERULAR FILTRATION RATE . ESTIMATED GFR I S NOT APPLICABLE FOR DIALYSIS PATIEN TS. Bartender Helper ID Valerie TAYLORTRCAIE [id number] 04:20:57 Test Item Value Reference Range Interpretation Comments PHOSPHORUS (BEAKER) (test code = 1.9 mg/dL 2.3-4.7 L 604) Bartender Helper ID - LELIA [id number] 04:20:56 Test Item Value Reference Range Interpretation Comments MAGNESIUM (BEAKER) (test code = 2.2 mg/dL 1.6-2.6 627) Bartender Helper ID - BRANDONTRACIE LCBC W/PLT COUNT & AUTO [id number] 04:01:33 Test Item Value Reference Range Interpretation Comments WHITE BLOOD CELL COUNT (BEAKER) 11.7 K/ L 3.5-10.5 H (test code = 775) RED BLOOD CELL COUNT (BEAKER) 2.34 M/ L 4.63-6.08 L (test code = 761) HEMOGLOBIN (BEAKER) (test code = 7.0 GM/DL 13.7-17.5 L 410) HEMATOCRIT (BEAKER) (test code = 22.1 % 40.1-51.0 L 411) MEAN CORPUSCULAR VOLUME (BEAKER) 94.4 fL 79.0-92.2 H (test code = 753) MEAN CORPUSCULAR HEMOGLOBIN 29.9 pg 25.7-32.2 (BEAKER) (test code = 751) MEAN CORPUSCULAR HEMOGLOBIN CONC 31.7 GM/DL 32.3-36.5 L (BEAKER) (test code = 752) RED CELL DISTRIBUTION WIDTH 14.3 % 11.6-14.4 (BEAKER) (test code = 412) PLATELET COUNT (BEAKER) (test 195 K/CU MM 150-450 code = 756) MEAN PLATELET VOLUME (BEAKER) 10.0 fL 9.4-12.4 (test code = 754) NUCLEATED RED BLOOD CELLS 0 /100 WBC 0-0 (BEAKER) (test code = 413) NEUTROPHILS RELATIVE PERCENT 84 % (BEAKER) (test code = 429) LYMPHOCYTES RELATIVE PERCENT 6 % (BEAKER) (test code = 430) MONOCYTES RELATIVE PERCENT 9 % (BEAKER) (test code = 431) EOSINOPHILS RELATIVE PERCENT 0 % (BEAKER) (test code = 432) BASOPHILS RELATIVE PERCENT 0 % (BEAKER) (test code = 437) NEUTROPHILS ABSOLUTE COUNT 9.81 K/ L 1.78-5.38 H (BEAKER) (test code = 670) LYMPHOCYTES ABSOLUTE COUNT 0.72 K/ L 1.32-3.57 L (BEAKER) (test code = 414) MONOCYTES ABSOLUTE COUNT (BEAKER) 1.06 K/ L 0.30-0.82 H (test code = 415) EOSINOPHILS ABSOLUTE COUNT 0.01 K/ L 0.04-0.54 L (BEAKER) (test code = 416) BASOPHILS ABSOLUTE COUNT (BEAKER) 0.02 K/ L 0.01-0.08 (test code = 417) IMMATURE GRANULOCYTES-RELATIVE 1 % 0-1 PERCENT (BEAKER) (test code = 2801) VANCOMYCIN LEVEL, [id number] 21:43:17 Test Item Value Reference Range Interpretation Comments VANCOMYCIN TROUGH (BEAKER) (test 11.7 ug/mL 10.0-20.0 code = 522) Bartender Helper ID - DBHIV-1 ANTIGEN WITH HIV-1/2 [id number] 18:09:38 Test Item Value Reference Range Interpretation Comments HIV-1 ANTIGEN WITH HIV 1\\T\\2 Nonreactive Nonreactive ANTIBODY (2) (BEAKER) (test code = 2586) Bartender Helper ID - DBHEPATITIS PANEL, [id number] 18:09:37 Test Item Value Reference Range Interpretation Comments HEPATITIS A IGM ANTIBODY (BEAKER) Nonreactive Nonreactive (test code = 498) HEPATITIS B CORE IGM ANTIBODY Nonreactive Nonreactive (BEAKER) (test code = 645) HEPATITIS C ANTIBODY (BEAKER) Nonreactive Nonreactive (test code = 367) HEPATITIS B SURFACE ANTIGEN (2) Nonreactive Nonreactive (BEAKER) (test code = 2585) Bartender Helper ID - DBHIGH SENSITIVITY TROPONIN [id number] 16:57:21 Test Item Value Reference Range Interpretation Comments HIGH SENSITIVITY 6 pg/ml See_Comment [Automated message] TROPONIN I (test code = The system which [id number]) generated this result transmitted ref erence range: <=35. Th e reference range was not used to interpr et this result as normal/abnormal . Bartender Helper ID - ERNESTINA GThe CUSTOMER QUALITY SPECIALIST STAT High Sensitivity Troponin-I results should be used in conjunction with other diagnostic information such as ECG, clinical observations and information, and patient symptoms to aid in the diagnosis of MD.SPIN/CONCENTRATION [id number] 11:38:19 Test Item Value Reference Range Interpretation Comments CONCENTRATION CHARGED (BEAKER) (test Done code = 2657) SPIN/CONCENTRATION [id number] 11:37:06 Test Item Value Reference Range Interpretation Comments CONCENTRATION CHARGED (BEAKER) (test Done code = 2657) BASIC METABOLIC [id number] 04:15:19 Test Item Value Reference Range Interpretation Comments SODIUM (BEAKER) 136 meq/L 136-145 (test code = 381) POTASSIUM (BEAKER) 3.7 meq/L 3.5-5.1 (test code = 379) CHLORIDE (BEAKER) 106 meq/L 98-107 (test code = 382) CO2 (BEAKER) (test 24 meq/L 22-29 code = 355) BLOOD UREA NITROGEN 16 mg/dL 7-21 (BEAKER) (test code = 354) CREATININE (BEAKER) 0.71 mg/dL 0.57-1.25 (test code = 358) GLUCOSE RANDOM 173 mg/dL 70-105 H (BEAKER) (test code = 652) CALCIUM (BEAKER) 7.8 mg/dL 8.4-10.2 L (test code = 697) EGFR (BEAKER) (test 107 mL/min/1.73 ESTIM ATED GFR IS code = 1092) sq m NOT ACCURATE CREATININE CLEARANCE IN PREDICTING GLOMERULAR FILTRATION RATE . ESTIMATED GFR I S NOT APPLICABLE FOR DIALYSIS PATIEN TS. Bartender Helper ID - ERNESTINA [id number] 04:12:12 Test Item Value Reference Range Interpretation Comments PHOSPHORUS (BEAKER) (test code = 2.8 mg/dL 2.3-4.7 604) Bartender Helper ID - ERNESTINA [id number] 04:12:11 Test Item Value Reference Range Interpretation Comments MAGNESIUM (BEAKER) (test code = 2.1 mg/dL 1.6-2.6 627) Bartender Helper ID - ERNESTINA GCBC W/PLT COUNT & AUTO [id number] 03:59:11 Test Item Value Reference Range Interpretation Comments WHITE BLOOD CELL COUNT (BEAKER) 16.3 K/ L 3.5-10.5 H (test code = 775) RED BLOOD CELL COUNT (BEAKER) 2.73 M/ L 4.63-6.08 L (test code = 761) HEMOGLOBIN (BEAKER) (test code = 8.0 GM/DL 13.7-17.5 L 410) HEMATOCRIT (BEAKER) (test code = 25.1 % 40.1-51.0 L 411) MEAN CORPUSCULAR VOLUME (BEAKER) 91.9 fL 79.0-92.2 (test code = 753) MEAN CORPUSCULAR HEMOGLOBIN 29.3 pg 25.7-32.2 (BEAKER) (test code = 751) MEAN CORPUSCULAR HEMOGLOBIN CONC 31.9 GM/DL 32.3-36.5 L (BEAKER) (test code = 752) RED CELL DISTRIBUTION WIDTH 14.1 % 11.6-14.4 (BEAKER) (test code = 412) PLATELET COUNT (BEAKER) (test 219 K/CU MM 150-450 code = 756) MEAN PLATELET VOLUME (BEAKER) 9.6 fL 9.4-12.4 (test code = 754) NUCLEATED RED BLOOD CELLS 0 /100 WBC 0-0 (BEAKER) (test code = 413) NEUTROPHILS RELATIVE PERCENT 91 % (BEAKER) (test code = 429) LYMPHOCYTES RELATIVE PERCENT 3 % (BEAKER) (test code = 430) MONOCYTES RELATIVE PERCENT 5 % (BEAKER) (test code = 431) EOSINOPHILS RELATIVE PERCENT 0 % (BEAKER) (test code = 432) BASOPHILS RELATIVE PERCENT 0 % (BEAKER) (test code = 437) NEUTROPHILS ABSOLUTE COUNT 14.81 K/ L 1.78-5.38 H (BEAKER) (test code = 670) LYMPHOCYTES ABSOLUTE COUNT 0.49 K/ L 1.32-3.57 L (BEAKER) (test code = 414) MONOCYTES ABSOLUTE COUNT (BEAKER) 0.78 K/ L 0.30-0.82 (test code = 415) EOSINOPHILS ABSOLUTE COUNT 0.00 K/ L 0.04-0.54 L (BEAKER) (test code = 416) BASOPHILS ABSOLUTE COUNT (BEAKER) 0.01 K/ L 0.01-0.08 (test code = 417) IMMATURE GRANULOCYTES-RELATIVE 1 % 0-1 PERCENT (BEAKER) (test code = 2801) CT, BRAIN, WITHOUT [id number] 18:25:00Unlisted Reason for Exam - Click Yes and Enter Reason Below->YesUnlisted Reason for Exam->[facility]operative [facility] : 1940 Sex: MFINAL REPORT CT, BRAIN, WITHOUT CONTRAST CLINICAL INDICATION: Unli sted Reason for Exampostoperative COMPARISON: March 14, 2021 TECHNIQUE: Noncontrast axial CT imaging of the brain and skull. DOSE REDUCTION: Dose modulation, iterative reconstruction, and/or weight-based adjustment of the mA/kV was utilized to reduce the radiation dose to as low as reasonably achi evable. FINDINGS:Status post right frontoparietal craniectomy for drainage of subjacent extra-axial collection. Expected extra-axial pneumocephalus is present within the drainage bed. Residual acute blood products measuring up to 1.4 cm. A subdural drain is present. Decreased mass effect and midline shift status post drainage of hematoma, now approximately 3-4 mm (previously 6 mm). There is mild effacement of sulci throughout the right cerebral hemisphere. No hydrocephalus. Orbits are within normal limits. Atelectatic changes of the right maxillary sinus, which is partially opacified. IMPRESSION: Expected postoperative appearance status post post right frontal parietal craniectomy for drainage of e xtra-axial collection with subdural drain in place. If there is persistent clinical concern for intracranial pathology, MR examination is recommended for further characterization. Signed: Shanelle Chapa MDReport Verified Date/Time: 03/31/2021 18:25:50 SARS-COV2/RT-PCR ([facility])2021-03-31 12:51:25 Test Item Value Reference Range Interpretation Comments SARS-COV2/RT-PCR Negative Negative The SARS-Co V-2 target (test code = nucleic acids a re not [id number]) detected in thi s specimen. Negative result s do not preclude SARS-C oV-2 infection and s hould not be used as the rita e basis for patient managem ent decisions. Nega tive results must be combine d with clinical observ ations, patient history , and epidemiological information. A false negativ e result may occur if a spec imen is improperly sabino ected, transported or handled. This SARS CoV-2 [...] revoked sooner. Fact Sheet for Healthcare Providers: https://www.[employer].com/Documents/Xpert%20Xpress%20SARS%20CoV-2/Fact%20Sheets/302-3802%20SARS-COV -2%20HEALTHCARE%20PROVIDERS%20FACT%20SHEET.pdf Fact Sheet for Healthcare Patients: https://www.[employer]/Documents/Xpert %20Xpress%20SARS%20CoV-2/Fact%20Sheets/302-3801%91LERI-LCN-0%20PATIENT%20FACT%20 SHEET.pdfMR, BRAIN, [id number] 10:26:00Unlisted Reason for Exam - Click Yes and Enter Reason Below->Yes Unlisted Reason for Exam->ICHetiology [facility] KUONASIMA : 1940 Sex: MFINAL REPORT MRI Brain with and without contrast Clinical History: Unlisted Reason for ExamICH etiology Technique: MRI of the brain utilizing axial T1, T2, FLAIR, GRE,DWI, sagittal T1; and postgadolinium axial, sagittal, and coronal T1-weighted images. Comparisons: CT 03/14/2021 Findings: The right cerebral convexity subdural collection has decreased in maximal thickness measuring 1.0 cm (previously 2.8 cm), but now extends over a greater percentage of the cerebralhemisphere. There is irregular pachymeningeal leptomeningeal enhancement throughout the subdural collection. The subdural contents demonstrate restricted diffusion. Overall, the appearance is concerning for a subacute dural empyema. There is sulcal FLAIR signal abnormality in the adjacent compressed sulci suggesting meningitis. Mass effect on the right cerebral hemisphere is again seen with leftward midline shift of 6 mm grossly unchanged. Compression of the right lateral ventricle with asymmetric dilatation of the left temporal horn is also unchanged allowing for differences in technique. There isno evidence for acute infarct or parenchymal hemorrhage. The major intracranial flow-voids appear patent. IMPRESSION: The right cerebral convexity subdural collection demonstrates restricted diffusion and irregular enhancement suggestive of a subdural empyema. Right cerebral leptomeningeal enhancementand sulcal FLAIR signal abnormality suggesting meningitis. The findings were discussed with Dr. KERVIN BRADLEY MD at the time of dictation. Signed: Chris Brower MDReport Verified Date/Time: 03/31/2021 10:26:28 Reading Location: [facility] C0[facility] Neuro Reading Room [id number] 01:30:19 Test Item Value Reference Range Interpretation Comments PARTIAL THROMBOPLASTIN TIME 44.4 seconds 22.5-36.0 H (BEAKER) (test code = 760) PROTHROMBIN TIME/[id number] 01:29:16 Test Item Value Reference Range Interpretation Comments PROTIME (BEAKER) 16.2 seconds 11.9-14.2 H (test code = 759) INR (BEAKER) (test 1.32 See_Comment [Automat ed message] code = 370) The system [employer] generated this result transmitted ref erence range: <=5.90. The reference range was not used to int erpret this result as normal/abnormal . RECOMMENDED COUMADIN/WARFARIN INR THERAPY RANGESSTANDARD DOSE: 2.0 - 3.0 Includes: PROPHYLAXIS forvenous thrombosis, systemic embolization; TREATMENT for venous thrombosis and/or pulmonary embolus.HIGH RISK: Target INR is 2.5-3.5 for patients with mechanical heart valves.COMPREHENSIVE METABOLIC [id number] 01:28:15 Test Item Value Reference Range Interpretation Comments TOTAL PROTEIN 6.8 gm/dL 6.0-8.3 (BEAKER) (test code = 770) ALBUMIN (BEAKER) 3.1 g/dL 3.5-5.0 L (test code = 1145) ALKALINE PHOSPHATASE 93 U/L 40-150 (BEAKER) (test code = 346) BILIRUBIN TOTAL 0.8 mg/dL 0.2-1.2 (BEAKER) (test code = 377) SODIUM (BEAKER) (test 132 meq/L 136-145 L code = 381) POTASSIUM (BEAKER) 3.3 meq/L 3.5-5.1 L (test code = 379) CHLORIDE (BEAKER) 99 meq/L 98-107 (test code = 382) CO2 (BEAKER) (test 24 meq/L 22-29 code = 355) BLOOD UREA NITROGEN 21 mg/dL 7-21 (BEAKER) (test code = 354) CREATININE (BEAKER) 0.71 mg/dL 0.57-1.25 (test code = 358) GLUCOSE RANDOM 126 mg/dL 70-105 H (BEAKER) (test code = 652) CALCIUM (BEAKER) 8.9 mg/dL 8.4-10.2 (test code = 697) AST (SGOT) (BEAKER) 74 U/L 5-34 H (test code = 353) ALT (SGPT) (BEAKER) 155 U/L 6-55 H (test code = 347) EGFR (BEAKER) (test 107 ESTIMATE D GFR IS code = 1092) mL/min/1.73 sq NOT ACCURA TE m CREATININE CLEARANCE IN PREDICTING GLOMERULAR FILTRATION RATE . ESTIMATED GFR I S NOT APPLICABLE FOR DIALYSIS PATIEN TS. Bartender Helper ID - PIAYA LC-REACTIVE [id number] 01:28:15 Test Item Value Reference Range Interpretation Comments C-REACTIVE PROTEIN (BEAKER) (test 11.47 mg/dL 0.00-0.50 H code = 676) Bartender Helper ID - PIAYA LCBC W/PLT COUNT & AUTO [id number] 01:08:56 Test Item Value Reference Range Interpretation Comments WHITE BLOOD CELL COUNT (BEAKER) 8.8 K/ L 3.5-10.5 (test code = 775) RED BLOOD CELL COUNT (BEAKER) 3.41 M/ L 4.63-6.08 L (test code = 761) HEMOGLOBIN (BEAKER) (test code = 10.0 GM/DL 13.7-17.5 L 410) HEMATOCRIT (BEAKER) (test code = 31.6 % 40.1-51.0 L 411) MEAN CORPUSCULAR VOLUME (BEAKER) 92.7 fL 79.0-92.2 H (test code = 753) MEAN CORPUSCULAR HEMOGLOBIN 29.3 pg 25.7-32.2 (BEAKER) (test code = 751) MEAN CORPUSCULAR HEMOGLOBIN CONC 31.6 GM/DL 32.3-36.5 L (BEAKER) (test code = 752) RED CELL DISTRIBUTION WIDTH 14.1 % 11.6-14.4 (BEAKER) (test code = 412) PLATELET COUNT (BEAKER) (test 251 K/CU MM 150-450 code = 756) MEAN PLATELET VOLUME (BEAKER) 10.0 fL 9.4-12.4 (test code = 754) NUCLEATED RED BLOOD CELLS 0 /100 WBC 0-0 (BEAKER) (test code = 413) NEUTROPHILS RELATIVE PERCENT 75 % (BEAKER) (test code = 429) LYMPHOCYTES RELATIVE PERCENT 14 % (BEAKER) (test code = 430) MONOCYTES RELATIVE PERCENT 8 % (BEAKER) (test code = 431) EOSINOPHILS RELATIVE PERCENT 2 % (BEAKER) (test code = 432) BASOPHILS RELATIVE PERCENT 0 % (BEAKER) (test code = 437) NEUTROPHILS ABSOLUTE COUNT 6.62 K/ L 1.78-5.38 H (BEAKER) (test code = 670) LYMPHOCYTES ABSOLUTE COUNT 1.20 K/ L 1.32-3.57 L (BEAKER) (test code = 414) MONOCYTES ABSOLUTE COUNT (BEAKER) 0.73 K/ L 0.30-0.82 (test code = 415) EOSINOPHILS ABSOLUTE COUNT 0.15 K/ L 0.04-0.54 (BEAKER) (test code = 416) BASOPHILS ABSOLUTE COUNT (BEAKER) 0.02 K/ L 0.01-0.08 (test code = 417) IMMATURE GRANULOCYTES-RELATIVE 1 % 0-1 PERCENT (BEAKER) (test code = 2801) BASIC METABOLIC [id number] 05:07:26 Test Item Value Reference Range Interpretation Comments SODIUM (BEAKER) 138 meq/L 136-145 (test code = 381) POTASSIUM (BEAKER) 3.6 meq/L 3.5-5.1 (test code = 379) CHLORIDE (BEAKER) 105 meq/L 98-107 (test code = 382) CO2 (BEAKER) (test 26 meq/L 22-29 code = 355) BLOOD UREA NITROGEN 11 mg/dL 7-21 (BEAKER) (test code = 354) CREATININE (BEAKER) 0.75 mg/dL 0.57-1.25 (test code = 358) GLUCOSE RANDOM 118 mg/dL 70-105 H (BEAKER) (test code = 652) CALCIUM (BEAKER) 9.2 mg/dL 8.4-10.2 (test code = 697) EGFR (BEAKER) (test 100 mL/min/1.73 ESTIM ATED GFR IS code = 1092) sq m NOT ACCURATE CREATININE CLEARANCE IN PREDICTING GLOMERULAR FILTRATION RATE . ESTIMATED GFR I S NOT APPLICABLE FOR DIALYSIS PATIEN TS. Bartender Helper ID - DBPOCT-GLUCOSE [id number] 11:13:30 Test Item Value Reference Range Interpretation Comments POC-GLUCOSE METER 152 mg/dL 70-110 H : TESTED A T [facility] 6720 (BEAKER) (test code [facility], = 1538) [address]: Bartender Helper/Techni mei ID = [id number] for Radhanubia josué (contract), Syt ezra CT, BRAIN, WITHOUT [id number] 10:46:00Unlisted Reason for Exam - Click Yes and Enter Reason Below->No [facility] 1940 Sex: [...] MR examinationis recommended for further characterization. Signed: Shanelle Chapa MDReport Verified Date/Time: 03/14/2021 10:46:46 SARS-COV2/RT-PCR ([facility])2021-03-14 07:03:48 Test Item Value Reference Range Interpretation Comments SARS-COV2/RT-PCR Negative Negative The SARS-Co V-2 target (test code = nucleic acids a re not [id number]) detected in thi s specimen. Negative result s do not preclude SARS-C oV-2 infection and s hould not be used as the rita e basis for patient managem ent decisions. Nega tive results must be combine d with clinical observ ations, patient history , and epidemiological information. A false negativ e result may occur if a spec imen is improperly sabino ected, transported or handled. This SARS CoV-2 [...] id.com/Documents/Xpert%20Xpress%20SARS%20CoV-2/Fact%20Sheets/302-3802%20SARS-COV -2%20HEALTHCARE%20PROVIDERS%20FACT%20SHEET.pdf Fact Sheet for Healthcare Patients: https://www.BusyEvent/Documents/Xpert %20Xpress%20SARS%20CoV-2/Fact%20Sheets/302-3801%68BASC-YWI-7%20PATIENT%20FACT%20 SHEET.pdfPROTHROMBIN TIME/[id number] 06:29:21 Test Item Value Reference Range Interpretation Comments PROTIME (BEAKER) 13.7 seconds 11.9-14.2 (test code = 759) INR (BEAKER) (test 1.07 See_Comment [Automat ed message] code = 370) The system [employer] generated this result transmitted ref erence range: <=5.90. The reference range was not used to int erpret this result as normal/abnormal . RECOMMENDED COUMADIN/WARFARIN INR THERAPY RANGESSTANDARD DOSE: 2.0 - 3.0 Includes: PROPHYLAXIS forvenous thrombosis, systemic embolization; TREATMENT for venous thrombosis and/or pulmonary embolus.HIGH RISK: Target INR is 2.5-3.5 for patients with mechanical heart valves.POCT-GLUCOSE [id number] 06:04:12 Test Item Value Reference Range Interpretation Comments POC-GLUCOSE METER 112 mg/dL 70-110 H : TESTED A T [facility] 6720 (BEAKER) (test code = [place], 1538) [address]: Bartender Helper/Techni mei ID = [id number] for Wy Ijeoma skinner THROMBOELASTOGRAPH (TEG)2021-03-14 05:32:14 Test Item Value Reference [...] (test 0.0 % 0.0-5.0 code = 1414) [id number] 04:42:48 Test Item Value Reference Range Interpretation Comments PHOSPHORUS (BEAKER) 3.5 mg/dL 2.3-4.7 Specimen slightly (test code = 604) hemolyzed Bartender Helper ID - DBBASIC METABOLIC [id number] 04:42:48 Test Item Value Reference Range Interpretation [...] S NOT APPLICABLE FOR DIALYSIS PATIEN TS. Bartender Helper ID - [id number] 04:42:47 Test Item Value Reference Range Interpretation Comments MAGNESIUM (BEAKER) 2.0 mg/dL 1.6-2.6 Specimen slightly (test code = 627) hemolyzed Bartender Helper ID - DBCBC W/PLT COUNT & AUTO [id number] 04:13:13 Test Item Value Reference Range Interpretation [...] = 2801) RAD, CHEST, 1 VIEW, NON [id number] 04:08:00Reason for exam:->COVIDShould this be performed at the bedside?->Yes [facility] 1940 Sex: [...] Musa MDReport Verified Date/Time: 03/14/2021 04:08:19 POCT-GLUCOSE [id number] 12:58:28 Test Item Value Reference Range Interpretation Comments POC-GLUCOSE METER 130 mg/dL 70-110 H : TESTED A T [facility] 6720 (GEOVANY) (test code = [place], 1538) [address]: Bartender Helper/Techni mei ID = [id number] for ALDO PASTRANA HEMOGLOBIN [id number] 08:47:58 Test Item Value Reference Range Interpretation Comments HEMOGLOBIN A1C (BEAKER) (test code = 6.4 % 4.3-6.1 H 368) BASIC METABOLIC [id number] 06:00:48 Test Item Value Reference Range Interpretation [...] S NOT APPLICABLE FOR DIALYSIS PATIEN TS. Bartender Helper ID - DBCBC W/PLT COUNT & AUTO [id number] 04:01:55 Test Item Value Reference Range Interpretation [...] PERCENT (BEAKER) (test code = 2801) POCT-GLUCOSE [id number] 18:14:42 Test Item Value Reference Range Interpretation Comments POC-GLUCOSE METER 134 mg/dL 70-110 H : TESTED A T [facility] 67 ([facility]) (test code = [facility] [place] [facility], 1538) [address]: Bartender Helper/Techni mei ID = [id number] for GAVIN WALKER POCT-GLUCOSE [id number] 12:13:11 Test Item Value Reference Range Interpretation Comments POC-GLUCOSE METER 126 mg/dL 70-110 H : Notified RN/MD: ([facility]) (test code = TESTED AT [place] [id number] 1538) [facility], [address]: Bartender Helper/Techni mei ID = [id number] for ERICA TIAN CT, BRAIN, WITHOUT [id number] 06:54:00Unlisted Reason for Exam - Click Yes and Enter Reason Below->No [facility] : 1940 Sex: MFINAL [...] MDReport Verified Date/Time: 02/26/2021 06:54:39 Reading Location: [facility] Radiology Reading Room POCT-GLUCOSE [id number] 06:34:34 Test Item Value Reference Range Interpretation Comments POC-GLUCOSE METER 130 mg/dL 70-110 H : TESTED A T [facility] 6720 (TIM GroupAKER) (test code = [place], 1538) [address]: Bartender Helper/Techni mei ID = [id number] for DILMA BLANCO [id number] 04:09:05 Test Item Value Reference Range Interpretation Comments PHOSPHORUS (BEAKER) (test code = 3.3 mg/dL 2.3-4.7 604) Bartender Helper ID - ERNESTINA GBASIC METABOLIC [id number] 04:09:04 Test Item Value Reference Range Interpretation [...] S NOT APPLICABLE FOR DIALYSIS PATIEN TS. Bartender Helper ID - ERNESTINA [id number] 04:09:04 Test Item Value Reference Range Interpretation Comments MAGNESIUM (BEAKER) (test code = 2.3 mg/dL 1.6-2.6 627) Bartender Helper ID - ERNESTINA GCBC W/PLT COUNT & AUTO [id number] 03:44:36 Test Item Value Reference Range Interpretation [...] PERCENT (BEAKER) (test code = 2801) POCT-GLUCOSE [id number] 00:06:22 Test Item Value Reference Range Interpretation Comments POC-GLUCOSE METER 146 mg/dL 70-110 H : TESTED A T [facility] 6720 (BEAKER) (test code = [place], 1538) [address]: Bartender Helper/Techni mei ID = [id number] for DILMA BLANCO POCT-GLUCOSE [id number] 12:07:35 Test Item Value Reference Range Interpretation Comments POC-GLUCOSE METER 126 mg/dL 70-110 H : Notified RN/MD: ([place]) (test code = TESTED AT [facility] 6720 1538) [place] [facility], [address]: Bartender Helper/Techni mei ID = [id number] for ERICA TIAN SARS-COV2/RT-PCR ([facility])2021-02-25 07:50:40 Test Item Value Reference Range Interpretation Comments SARS-COV2/RT-PCR Negative Negative The SARS-Co V-2 target (test code = nucleic acids a re not [id number]) detected in thi s specimen. Negative result s do not preclude SARS-C oV-2 infection and s hould not be used as the rita e basis for patient managem ent decisions. Nega tive results must be combine d with clinical observ ations, patient history , and epidemiological information. A false negativ e result may occur if a spec imen is improperly sabino ected, transported or handled. This SARS CoV-2 [...] revoked sooner. Fact Sheet for Healthcare Providers: https://www.Qumulo/Documents/Xpert%20Xpress%20SARS%20CoV-2/Fact%20Sheets/302-3459%20SARS-COV -2%20HEALTHCARE%20PROVIDERS%20FACT%20SHEET.pdf Fact Sheet for Healthcare Patients: https://www.BusyEvent/Documents/Xpert %20Xpress%20SARS%20CoV-2/Fact%20Sheets/302-3801%02IRCH-JUH-9%20PATIENT%20FACT%20 SHEET.pdfCT, BRAIN, WITHOUT [id number] 07:28:00Neurosurgical evaluation preoperativelyReason for exam:->Intracranial hemorrhage [facility] : 1940 Sex: [...] MDReport Verified Date/Time: 02/25/2021 07:28:24 Reading Location: [facility] Radiology Reading Room POCT-GLUCOSE [id number] 06:01:17 Test Item Value Reference Range Interpretation Comments POC-GLUCOSE METER 102 mg/dL 70-110 : TESTED A T [facility] 6720 (BEAKER) (test code [facility], = 1538) [address]: Bartender Helper/Techni mei ID = [id number] for Pa Naranjo [id number] 04:07:22 Test Item Value Reference Range Interpretation Comments MAGNESIUM (BEAKER) (test code = 2.1 mg/dL 1.6-2.6 627) Bartender Helper ID - ISAK [id number] 04:07:22 Test Item Value Reference Range Interpretation Comments PHOSPHORUS (BEAKER) (test code = 2.9 mg/dL 2.3-4.7 604) Bartender Helper ID - ISAK MBASIC METABOLIC [id number] 04:07:21 Test Item Value Reference Range Interpretation [...] S NOT APPLICABLE FOR DIALYSIS PATIEN TS. Bartender Helper ID - ISAK MCBC (HEMOGRAM ONLY)2021-02-25 03:47:50 [...] = 413) RAD, CHEST, 1 VIEW, NON [id number] 02:13:00Reason for exam:- >weaknessShould this be performed at the bedside?->Yes [facility] 1940 Sex: [...] pulmonary edema or acute bony abnormality. Signed: Sebastian Metz MDReport Verified Date/Time: 02/25/2021 02:13:07 POCT- GLUCOSE [id number] 01:15:35 Test Item Value Reference Range Interpretation Comments POC-GLUCOSE METER 108 mg/dL 70-110 : TESTED A T [facility] 6720 (BEAKER) (test [facility], = 1538) [address]: Bartender Helper/Techni mei ID = [id number] for Pa Naranjo [id number] 22:37:00 Test Item Value Reference Range Interpretation Comments PROCALCITONIN (BEAKER) (test code = < ng/mL <0.05 3036) SEPSIS RISK (ng/mL)Low: 0.05-0.50Intermediate: 0.51-2.00High: >=2.01RAPID DRUG SCREEN, [id number] 22:15:49 Test Item Value Reference Range Interpretation [...] situations. Chain of custody not maintained. Some kbvs-cem-stikrqn medications, as well as adulterants, may cause inaccurate results. Clinical correlation should be applied. A more comprehensivedrug screen or confirmation of a detected drug may be performed upon request.Bartender Helper ID - BSHEPATIC FUNCTION [id number] 22:14:58 Test Item Value Reference Range Interpretation [...] (test code = 13 U/L 6-55 347) Bartender Helper ID - [id number] 22:08:14 Test Item Value Reference Range Interpretation Comments PARTIAL THROMBOPLASTIN TIME 40.8 seconds 22.5-36.0 H (BEAKER) (test code = 760) PROTHROMBIN TIME/[id number] 22:07:16 Test Item Value Reference Range Interpretation Comments PROTIME (BEAKER) 15.3 seconds 11.9-14.2 H (test code = 759) INR (BEAKER) (test 1.23 See_Comment [Automat ed message] code = 370) The system [employer] generated this result transmitted ref erence range: <=5.90. The reference range was not used to int erpret this result as normal/abnormal . RECOMMENDED COUMADIN/WARFARIN INR THERAPY RANGESSTANDARD DOSE: 2.0 - 3.0 Includes: PROPHYLAXIS forvenous thrombosis, systemic embolization; TREATMENT for venous thrombosis and/or pulmonary embolus.HIGH RISK: Target INR is 2.5-3.5 for patients with mechanical heart valves.LACTIC ACID, [id number] 22:04:34 Test Item Value Reference Range Interpretation Comments LACTATE BLOOD ARTERIAL (2) 1.1 mmol/L 0.5-2.2 (BEAKER) (test code = 2874) Bartender Helper ID - BSURINALYSIS [id number] 21:54:39 Test Item Value Reference Range Interpretation Comments RBC UA (BEAKER) (test code = 519) 5 /HPF WBC UA (BEAKER) (test code = 520) < /HPF BACTERIA (BEAKER) (test code = 517) None Seen CRYSTALS, URINE (BEAKER) (test code None Seen = 1521) Bartender Helper ID - techURINALYSIS WITH MICROSCOPIC IF [id number] 21:52:51 Test Item Value Reference Range Interpretation [...] = 463) SOURCE(BEAKER) (test code = 2795) Bartender Helper ID - [auto]CT, CTA [id number] 17:40:00Reason for Exam:->aaa Addendum BeginsREPORT STATUS:A Addendum: Several small cysts are seen in the left lung base. No free intraperitoneal air. I otherwise agree with the previously described non vascular findings. End of addendum. Signed: Armando Proctorepwiliam Verified Date/Time: 03/15/2019 17:40:34 Reading Location: [facility] Reading RoomAddendum EndsFINAL REPORT CT angiography of [...] artery is approximately 7 cm, and sales representative supervisor dimension is approximately 2.2 x 2.2 cm. [...] seen and no hydronephrosis or perirenal fluid sabino ection is identified. A renal cyst is [...] dictated regarding the non-vascular findings by the [employer] Hrms Developer Radiologist. Signed: Bill Fountain MDReport Verified Date/Time: 03/15/2019 11:50:43 [id number] 10:21:00 Test Item Value Reference Range Interpretation Comments POC-CREATININE 0.9 mg/dL 0.6-1.3 TESTED AT [facility] 6720 ([facility]) (test [facility] [place] code = 1859) [address] POC-EGFR ([facility]) 82 mL/min/1.73M2 (test code = 1860) TISSUE [id number] 17:04:00Surgical Pathology Report Case: [id number] Authorizing Provider: Danial Smith, Collected: 10/01/2018 Kiarra BABCOCK Ordering Location: [facility] Received: 10/01/2018 1008 PERIOPERATIVE SERVICES Pathologist: Zeferino Warner MD Specimen: Plaque, RIGHT CAROTID PLAQUE/ ENDARTERECTOMY ARTERY, RIGHT CAROTID, ENDARTERECTOMY:CALCIFIC ATHEROSCLEROTIC PLAQUE Signing Pathologist Direct Phone Line: [phone] signed by Zeferino Warner MD on 10/04/2018 at 5:04 [id number]; [id number]. Right carotid plaque/endarterectomyThe specimen is received in formalin and consists of a portion of cylindrical c alcified tissue measuring 4.5 x 0.9 x 0.9 cm. Science Technicians sections are in one cassette for decalcification. CB/plPerformedPLATELET AGGREGATION: FUNCTION [id number] 14:42:00 Test Item Value Reference Range Interpretation Comments WEAK ADP 56 % 60-91 L RESULT(BEAKER) (test code = 2135) PLATELET FUNCTION 50-59% indicates mild SCREEN INTERP platelet dysfunction (BEAKER) (test code = 2173) [id number] Genevieve Lin MD (BEAKER) (test code = (electronic signature) 3473) PLATELET COUNT AGG 159 K/CU MM 150-450 (BEAKER) (test code = 2656) Platelet Function Screen results may be falsely low with platelet counts<100,000/cu mm.for patients on clopidogrel in past two weeksPOTASSIUM- STAT [id number] 12:04:00 Test Item Value Reference Range Interpretation Comments POTASSIUM (BEAKER) (test code = 4.0 meq/L 3.6-5.5 379) GLUCOSE-STAT [id number] 12:04:00 Test Item Value Reference Range Interpretation Comments GLUCOSE RANDOM (BEAKER) (test code 139 mg/dL 70-110 H = 652) HGB/HCT (H&H) - STAT [id number] 12:04:00 Test Item Value Reference Range Interpretation Comments HEMOGLOBIN (BEAKER) (test code = 10.5 g/dL 13.0-16.8 L 410) HEMATOCRIT (BEAKER) (test code = 31.0 % 40.0-50.0 L 411) PT/[id number] 06:25:00 Test Item Value Reference Range Interpretation [...] is2.5-3.5 for patients wiht mechanical heart valves.POCT-GLUCOSE [id number] 06:02:00 Test Item Value Reference Range Interpretation Comments POC-GLUCOSE METER 111 mg/dL 70-110 H TESTED AT [facility] 6720 (BEAKER) (test code = [place] 1538) [address] [id number] 12:11:00 Test Item Value Reference Range Interpretation Comments PARTIAL THROMBOPLASTIN TIME 67.7 seconds 22.5-36.0 H (BEAKER) (test code = 760) PROTHROMBIN TIME/[id number] 12:09:00 Test Item Value Reference Range Interpretation [...] for patients wiht mechanical heart valves.BASIC METABOLIC [id number] 12:09:00 Test Item Value Reference Range Interpretation Comments SODIUM (BEAKER) 138 meq/L 136-145 (test code = 381) POTASSIUM (BEAKER) 4.5 meq/L 3.5-5.1 (test code = 379) CHLORIDE (BEAKER) 106 meq/L 98-107 (test code = 382) CO2 (BEAKER) (test 25 meq/L - code = 355) BLOOD UREA NITROGEN 21 [...] PATIEN TS. CBC W/PLT COUNT & AUTO [id number] 11:53:00 Test Item Value Reference Range Interpretation [...] PERCENT (BEAKER) (test code = 2801) TISSUE [id number] 14:34:00Surgical Pathology Report Case: [id number] Authorizing Provider: Danial Smith, Collected: 09/12/2018 0910 Ordering Location: [facility] Received: 09/12/2018 1105 PERIOPERATIVE SERVICES Pathologist: Zeferino Warner MD Specimen: Plaque, LEFT CAROTID ARTERY PLAQUE ARTERY, LEFT CAROTID, ENDARTERECTOMY:CALCIFIC ATHEROSCLEROTIC PLAQUE WITH INTRAPLAQUE HEMORRHAGE Signing PathologistDirect Phone Line: [phone] signed by Zeferino Warner MD on 09/18/2018 at 2:34 [id number]; [id number] and postop diagnosis: left carotid stenosisLeft carotid artery plaqueReceived in saline labeled with the patient's name, accession number and "plaque" is a bifurcated, previously incised portion of yellow plaque measuring 3.2 x 1.0 x 0.5 cm. The specimen is serially sectioned to reveal focal areas of calcification measuring up to 0.3 cm in thickness. There are also focal areas of hemorrhage and necrosis. Science Technicians sections are submitted in A1, following decalcification. CG/pl PerformedTSH/FREE T4 IF [id number] 05:37:00 Test Item Value Reference Range Interpretation Comments THYROID STIMULATING HORMONE 0.76 uIU/mL 0.35-4.94 (BEAKER) (test code = 772) TROPONIN [id number] 05:01:00 Test Item Value Reference Range Interpretation [...] failure, acidosis, acute neurological disease, and persistent tachyarrhythmia.[id number] 04:53:00 Test Item Value Reference Range Interpretation Comments MAGNESIUM (BEAKER) (test code = 2.0 mg/dL 1.6-2.6 627) BASIC METABOLIC [id number] 04:53:00 Test Item Value Reference Range Interpretation [...] S NOT APPLICABLE FOR DIALYSIS PATIEN TS. PT/[id number] 04:53:00 Test Item Value Reference Range Interpretation [...] (test code = 413) CT, BRAIN, WITHOUT [id number] 18:45:00FINAL REPORT CT, BRAIN, WITHOUT CONTRAST CLINICAL [...] examination is recommended for further characterization. Signed:Shanelle Chapa MDReport Verified Date/Time: 09/13/2018 18:45:50 Reading Location: [facility] C013V Neuro Reading Room TROPONIN [id number] 16:04:00 Test Item Value Reference Range Interpretation [...] acidosis, acute neurological disease, and persistent tachyarrhythmia.TROPONIN [id number] 10:03:00 Test Item Value Reference Range Interpretation [...] WBC 0-0 (BEAKER) (test code = 413) [id number] 06:09:00 Test Item Value Reference Range Interpretation Comments MAGNESIUM (BEAKER) (test code = 1.7 mg/dL 1.6-2.6 627) BASIC METABOLIC [id number] 06:09:00 Test Item Value Reference Range Interpretation [...] NOT APPLICABLE FOR DIALYSIS PATIEN TS. TROPONIN [id number] 06:02:00 Test Item Value Reference Range Interpretation [...] failure, acidosis, acute neurological disease, and persistent tachyarrhythmia.[id number] 05:45:00 Test Item Value Reference Range Interpretation [...] Interpretation Comments WEAK ADP 87 % 60-91 RESULT(TIM GroupAKER) (test code = 2135) PLATELET FUNCTION 60-100% indicates SCREEN INTERP (BEAKER) normal platelet (test code = 2173) function [id number] Genevieve Lin MD (efw-suhl) (test code = (electronic signature) 2366) PLATELET COUNT AGG 174 K/CU MM 150-450 (BEAKER) (test code = 2656) Platelet Function Screen results may be falsely low with platelet counts<100,000/cu mm.for patients on clopidogrel in past two weeksfor patients on clopidogrel in past two weeksfor patients on clopidogrel in past two weeksBASIC METABOLIC [id number] 10:47:00 Test Item Value Reference Range Interpretation [...] NOT APPLICABLE FOR DIALYSIS PATIEN TS. PROTHROMBIN [id number] 10:27:00 Test Item Value Reference Range Interpretation [...] mechanical heart valves.CBC W/PLT COUNT & AUTO [id number] 10:19:00 Test Item Value Reference Range Interpretation [...] (BEAKER) (test code = 2801) BLOOD GAS, [id number] 10:15:00 Test Item Value Reference Range Interpretation [...] code = 381) 141 meq/L 135-148 POTASSIUM-STAT [id number] 08:48:00 Test Item Value Reference Range Interpretation Comments POTASSIUM (BEAKER) (test code = 3.7 meq/L 3.6-5.5 379) BLOOD GAS, [id number] 08:48:00 Test Item Value Reference Range Interpretation [...] (test code = 1819) 100.0 % GLUCOSE-STAT [id number] 08:48:00 Test Item Value Reference Range Interpretation Comments GLUCOSE RANDOM (BEAKER) (test code 117 mg/dL 70-110 H = 652) HGB/HCT (H&H) - STAT [id number] 08:48:00 Test Item Value Reference Range Interpretation Comments HEMOGLOBIN (BEAKER) (test code = 11.1 g/dL 13.0-16.8 L 410) HEMATOCRIT (BEAKER) (test code = 33.0 % 40.0-50.0 L 411) CALCIUM, [id number] 08:48:00 Test Item Value Reference Range Interpretation Comments CALCIUM IONIZED (BEAKER) (test 1.11 mmol/L 1.12-1.27 L code = 698) PH, BLOOD (BEAKER) (test code = 7.40 1810) BASIC METABOLIC [id number] 06:59:00 Test Item Value Reference Range Interpretation [...] S NOT APPLICABLE FOR DIALYSIS PATIEN TS. [id number] 06:46:00 Test Item Value Reference Range Interpretation [...] is2.5-3.5 for patients wiht mechanical heart valves.PROTHROMBIN [id number] 06:45:00 Test Item Value Reference Range Interpretation [...] is2.5-3.5 for patients wiht mechanical heart valves.POCT-GLUCOSE [id number] 06:24:00 Test Item Value Reference Range Interpretation Comments POC-GLUCOSE METER 117 mg/dL 70-110 H TESTED AT [facility] 6720 ([place]) (test code = ROBERT [place] [facility] 1538) [address] RAD, CHEST, 2 [id number] 13:32:00Reason for exam:->preop Should this be performed [...] MDReport Verified Date/Time: 09/04/2018 13:32:54 Reading Location: [facility] B1 C013W Consult Reading Room CBC W/PLT COUNT & AUTO [id number] 12:57:00 Test Item Value Reference Range Interpretation [...]
--- NOTE | 2021-05-02 12:22 | RAD REPORT ---
EXAM DESCRIPTION: CT - CTHCSPWOC - 05/02/2021 11:55 am CLINICAL HISTORY: PAINin the head and neck COMPARISON: Head C Spine Mpr Wo Con dated 03/13/2021 TECHNIQUE: Axial 5 mm thick images of the head were obtained. Axial 2 mm thick images of the cervic al spine were obtained with sagittal and coronal reconstruction images generated and reviewed. All CT scans are performed using dose optimization technique as appropriate and may include automated exposure control or mA/KV adjustment according to patient size. FINDINGS: No acute intracranial hemorrhage present. No mass effect, edema or shift of midline struct ures. Since prior imaging patient has undergone a large right craniectomy involving the anterior ky etal, posterior frontal and superior aspect of the temporal bone. Linear hyperdensity along the inner table anterior right frontal bone is probably dural thickening rather than hemorrhage. There is no c ortical edema or sulcal effacement. Ventricles are in proportion to the mild volume loss. Mastoid air cells and paranasal sinuses are clear. No globe or orbit abnormality seen. Dense arterial tree calci fications are present. Cervical body height and alignment are normal. Moderate C4-5 and advanced C5-6 disc space narrowing p resent. Endplate spurs are present there is uncovertebral joint hypertrophy causing mild bony foramin al encroachment at these levels. No fracture or acute bony abnormality. Central canal detail is inhe rently limited. No paraspinal mass or hematoma. IMPRESSION: No acute hemorrhage is seen and no acute intracranial process seen. Curvilinear hyperden sity along the inner table of the anterior right frontal bone believed be dural thickening and second adam to the large right craniectomy defect. Cervical spine degenerative changes are present as detailed. No acute cervical finding suspected.
--- NOTE | 2021-05-02 14:08 | ER ---
Nurse's Notes [facility] Name: Kuldeep Ramsey Age: 80 yrs Sex: Male : 1940 Arrival Date: 05/02/2021 Time: 11:39 Bed 17 Private MD: Diagnosis: Unspecified injury of head, initial encounter Presentation: 05/02 11:39 Chief complaint: EMS states: fall denies LOC, dizziness, and n/v. Coronavirus screen: waters Vaccine status: Patient reports receiving the 2nd dose of the covid vaccine. Ebola Screen: Patient denies travel to an Ebola-affected area in the 21 days before illness onset. Initial Sepsis Screen: Does the patient meet any 2 criteria? No. Patient's initial sepsis screen is negative. Does the patient have a suspected source of infection? No. Patient's initial sepsis screen is negative. Risk Assessment: Do you want to hurt yourself or someone else? Patient reports no desire to harm self or others. Onset of symptoms was May 02, 2021. 11:39 Method Of Arrival: EMS: [facility] 11:39 Acuity: JEREMÍAS 3 waters Triage Assessment: 11:56 General: Appears in no apparent distress. Behavior is calm, cooperative. waters Historical: - Allergies: 11:43 Codeine; waters 11:43 Geodon; waters 11:43 Ibuprofen; waters 11:43 Iodinated Contrast Media - IV Dye; waters 11:43 Morphine; waters 11:43 Seroquel; waters - Home Meds: 11:43 amlodipine oral [Active]; aspirin 81 mg Oral chew 1 tab once daily [Active]; waters atorvastatin 80 mg Oral tab [Active]; Lipitor Oral [Active]; Magnesium Oxide Oral [Active]; naltrexone Oral 1.5 mg [Active]; Omeprazole Oral for Gastroesophageal reflux, Heartburn [Active]; Plavix 75 mg Oral tab 1 tab once daily [Active]; potassium chloride 10 mEq Oral cpER 1 cap once daily [Active]; sotalol Oral [Active]; - PMHx: 11:43 CVA; Hypertension; Myocardial infarction; waters - PSHx: 11:43 Cholecystectomy; waters - Immunization history:: Adult Immunizations up to date. - Social history:: Smoking status: Patient denies any tobacco usage or history of. Screenin:56 Abuse screen: Denies threats or abuse. Denies injuries from another. Nutritional waters screening: No deficits noted. Tuberculosis screening: No symptoms or risk factors identified. Fall Risk Fall in past 12 months (25 points). Assessment: 11:42 Pain: Complains of pain in right eye. Musculoskeletal: Reports weakness in pt reported waters generalize weakness and balance issue d/t CVA. Pain is 6 out of 10 on a pain scale. Vital Signs: 11:39 BP 123 / 71; Pulse 75; Resp 16; Temp 97.8(O); Pulse Ox 100% ; Weight 65.77 kg; Height 5 waters ft. 8 in. (172.72 cm); 11:39 Body Mass Index 22.05 (65.77 kg, 172.72 cm) waters Nuno Coma Score: 11:50 Eye Response: spontaneous(4). Verbal Response: oriented(5). Motor Response: obeys kdr commands(6). Total: 15. ED Course: 11:39 Patient arrived in ED. waters 11:42 Triage completed. waters 11:45 Chau Krishnan MD is Attending Physician. kdr 11:55 CT Head C Spine In Process Unspecified. EDMS 11:56 Patient has correct armband on for positive identification. Bed in low position. waters 11:56 Arm band placed on. waters 11:56 No provider procedures requiring assistance completed. waters 15:10 Patient did not have IV access during this emergency room visit. waters Administered Medications: No medications were administered Outcome: 14:08 Discharge ordered by . kdr 15:09 Discharged to half-way. spouse picked up pt waters 15:09 Condition: stable 15:09 Discharge instructions given to family. 15:10 Patient left the ED. waters Signatures: Dispatcher [employer] EDMS Chau Krishnan MD MD [facility] Melody-StageMarizol montes de oca RN RN waters
--- NOTE | 2021-05-02 14:08 | EDPHYS ---
Physician Documentation [facility] Name: Kuldeep Ramsey Age: 80 yrs Sex: Male : 1940 Arrival Date: 05/02/2021 Time: 11:39 Bed 17 Private MD: ED Physician Chau Krishnan HPI: 05/02 11:50 This 80 yrs old Male presents to ER via EMS with complaints of head injury. kdr 11:50 The patient or guardian reports injury, pain, tenderness. The complaints affect the kdr right temporal area and right eye. Context of injury: The problem was sustained at a jail or assisted living facility, resulted from a fall, from a standing position. Onset: The symptoms/episode began/occurred suddenly, just prior to arrival. Associated signs and symptoms: Loss of consciousness: This patient did not experience any loss of consciousness. Pertinent positives:. Severity of symptoms: At their worst the symptoms were very mild, in the emergency department the symptoms are unchanged, have resolved. The patient has experienced similar episodes in the past, multiple times, The patient has had multiple falls and is seen here on her semiregular basis for same. 11:54 Patient has had a right craniotomy. This was noted on the prior exam in March of this kdr year. Patient was transferred at that time. Historical: - Allergies: 11:43 Codeine; waters 11:43 Geodon; waters 11:43 Ibuprofen; waters 11:43 Iodinated Contrast Media - IV Dye; waters 11:43 Morphine; waters 11:43 Seroquel; waters - Home Meds: 11:43 amlodipine oral [Active]; aspirin 81 mg Oral chew 1 tab once daily [Active]; waters atorvastatin 80 mg Oral tab [Active]; Lipitor Oral [Active]; Magnesium Oxide Oral [Active]; naltrexone Oral 1.5 mg [Active]; Omeprazole Oral for Gastroesophageal reflux, Heartburn [Active]; Plavix 75 mg Oral tab 1 tab once daily [Active]; potassium chloride 10 mEq Oral cpER 1 cap once daily [Active]; sotalol Oral [Active]; - PMHx: 11:43 CVA; Hypertension; Myocardial infarction; waters - PSHx: 11:43 Cholecystectomy; waters - Immunization history:: Adult Immunizations up to date. - Social history:: Smoking status: Patient denies any tobacco usage or history of. ROS: 11:54 Constitutional: Negative for fever, chills, and weight loss, Eyes: Negative for injury, kdr pain, redness, and discharge, ENT: Negative for injury, pain, and discharge, Neck: Negative for injury, pain, and swelling, Cardiovascular: Negative for chest pain, palpitations, and edema, Respiratory: Negative for shortness of breath, cough, wheezing, and pleuritic chest pain, Abdomen/GI: Negative for abdominal pain, nausea, vomiting, diarrhea, and constipation, Back: Negative for injury and pain, : Negative for injury, bleeding, discharge, and swelling, MS/Extremity: Negative for injury and deformity, Neuro: Negative for headache, weakness, numbness, tingling, and seizure activity. Psych: Negative for depression, anxiety, suicide ideation, homicidal ideation, and hallucinations, Allergy/Immunology: Negative for hives, rash, and allergies, Endocrine: Negative for neck swelling, polydipsia, polyuria, polyphagia, and marked weight changes, Hematologic/Lymphatic: Negative for swollen nodes, abnormal bleeding, and unusual bruising. 11:54 Skin: Positive for laceration(s), Patient has a small laceration to the right lateral aspect of the right eye. Exam: 11:54 Constitutional: This is a well developed, well nourished patient who is awake, alert, kdr and in no acute distress. Neck: Trachea midline, no thyromegaly or masses palpated, and no cervical lymphadenopathy. Supple, full range of motion without nuchal rigidity, or vertebral point tenderness. No Meningismus. Chest/axilla: Normal chest wall appearance and motion. Nontender with no deformity. No lesions are appreciated. Cardiovascular: Regular rate and rhythm with a normal S1 and S2. No gallops, murmurs, or rubs. Normal PMI, no JVD. No pulse deficits. Respiratory: Lungs have equal breath sounds bilaterally, clear to auscultation and percussion. No rales, rhonchi or wheezes noted. No increased work of breathing, no retractions or nasal flaring. 11:54 Head/face: Patient has an obvious craniotomy presentation of his head with the right parietal bone being removed. He also has a small superficial laceration to the lateral aspect of the right eye.. Vital Signs: 11:39 BP 123 / 71; Pulse 75; Resp 16; Temp 97.8(O); Pulse Ox 100% ; Weight 65.77 kg; Height 5 waters ft. 8 in. (172.72 cm); 11:39 Body Mass Index 22.05 (65.77 kg, 172.72 cm) waters Nuno Coma Score: 11:50 Eye Response: spontaneous(4). Verbal Response: oriented(5). Motor Response: obeys kdr commands(6). Total: 15. Laceration: 11:54 Wound Repair of 1cm ( 0.4in ) subcutaneous laceration to right eye. Distal kdr neuro/vascular/tendon intact. Wound prep: Simple cleansing by nurse. Skin closed with 1-0 Prolene using Steri-Strips. Dressed with Bacitracin. Patient tolerated well. MDM: 11:54 Data reviewed: vital signs, nurses notes, radiologic studies. Counseling: I had a kdr detailed discussion with the patient and/or guardian regarding: the historical points, exam findings, and any diagnostic results supporting the discharge/admit diagnosis, radiology results. 14:08 Patient medically screened. kdr 05/02 11:46 Order name: CT Head C Spine; Complete Time: 13:34 kdr Administered Medications: No medications were administered Disposition Summary: 05/02/21 14:08 Discharge Ordered Location: Home kdr Problem: new kdr Symptoms: have improved kdr Condition: Stable kdr Diagnosis - Unspecified injury of head, initial encounter kdr Followup: kdr - With: Private Physician - When: 2 - 3 days - Reason: If symptoms return, Further diagnostic work-up, Recheck today's complaints, Continuance of care, Re-evaluation by your physician Discharge Instructions: - Discharge Summary Sheet kdr - Head Injury, Adult, [id number] kdr Forms: - Medication Reconciliation Form kdr - Thank You Letter kdr Signatures: Dispatcher [employer] Chau Glynn MD MD kdr Mickail, Joel, PA PA jmm Au-Stager, Heather, RN RN
[2021-05-02 15:31] VITALS: BP 123/71; TEMP 97.8; O2SAT 100
== END 2021-05-02 15:10 | disposition home or self-care (01) ==
LOC: ER 11:38
PROC: 0JQ10ZZ Repair Face Subcutaneous Tissue and Fascia, Open Approach (ICD-10-PCS; principal; 2021-05-02)
DX: S01.81XA Laceration without foreign body of other part of head, initial encounter (principal); W18.30XA Fall on same level, unspecified, initial encounter; Y92.129 Unspecified place in nursing home as the place of occurrence of the external cause; I10 Essential (primary) hypertension; Z79.01 Long term (current) use of anticoagulants; Z88.5 Allergy status to narcotic agent; Z88.6 Allergy status to analgesic agent; Z88.8 Allergy status to other drugs, medicaments and biological substances; Z86.73 Personal history of transient ischemic attack (TIA), and cerebral infarction without residual deficits
CPT/HCPCS: 70450; 72125; 99283

== ENCOUNTER 2021-10-20 20:30 | Inpatient (IN) | payer OTHER ==
--- NOTE | 2021-10-20 14:33 | R.PREADM ---
PRE-ADMISSION SCREENING FORM SCREENING DATE AND TIME 10/20/2021 11:51 (CDT) ANTICIPATED REHAB ADMISSION DATE 10/22/2021 REFERRING FACILITY [facility] REFERRAL DATE AND TIME 10/20/2021 11:52 (CDT) ACUTE ADMIT DATE 10/18/2021 HOSPITALIZED IN LAST 60 DAYS? Yes Previous Rehabilitation(s): No. REFERRING PHYSICIAN Anthony Pena REHAB FACILITY [facility] CLINICAL LIAISON Marisa Narayan PHYSICIAN REVIEWER Dr. Jax Camreon M.D. MR# [id number] NAME REMA KUO ADDRESS [address] [place] [address] [address]IP [address] DATE OF 1940 AGE 81 SSN# [id number] GENDER male MARITAL STATUS ADMIT FROM 02 - [facility] PRE-HOSPITAL LIVING SETTING 01 - Home (private home/apt. board/care, assisted living, detention, transitional living) HOME TYPE AND DETAILS Type of home: single family house # of levels in the residence: 1 # of steps within the residence: 0 # of steps to enter the residence: 0 PRE-HOSPITAL LIVING WITH Family/Relatives FAMILY SUPPORT Yes PHONE PRIMARY FAMILY CONTACT ON ADM.? no IS PRIMARY FAMILY CONTACT AUTH. REP.? no PHONE 1ST CONTACT ON ADM. no IS 1ST CONTACT AUTH. REP.? no PHONE 2ND CONTACT ON ADM.? no PATIENT EMPLOYMENT STATUS Retired (for age) PATIENT EMPLOYER No Employer PAYOR INFORMATION: 1ST PAYOR NAME MEDICARE 1ST PAYOR PHONE 1ST PAYOR INJURY/ILLNESS DUE TO ACCIDENT? No ANOTHER CONSTITUTION PARTY RESPONSIBLE? 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) ONSET DATE 10/18/2021 REHAB IMPAIRMENT CATEGORY (KODY): 01 Stroke (STR) MEETS 60% rule AFFECTED EXTREMITIES: BLE, and BUE PRIMARY DIAGNOSIS-RELATED SURGERIES: Emergency Stroke(Bilateral) - performed by Anthony Pena on 10/18/2021 COMORBID REHAB/ACUTE DIAGNOSES: - N/A Encounter for surgical aftercare following surgery on the nervous system (Z48.811) INTERVENTIONS: - Late effects of Stroke Assess pt neuro status q4h Provide aggressive PT, OT and Speech to improve pt level of function Provide safety measures Assess/ Monitor the patient for any signs of seizure activity Assess/ Monitor pt degree on consciences regularly Assess/ Monitor for s/s of ICP - Wound care Assess/Monitor pt of s/s of infection Assess/Monitor TRANG drain Administer wound care per MD orders HOB elevation Administer prescribed pain medications and monitor for effectivness - CHF Assess/ Monitor daily weights Assess/ Monitor for signs of fluid overload - Hypertension Assess/ Monitor patient B/P and treat with prescribed medications Increase physical activity - Dementia Administer prescribed medications Frequently orient client to reality and surroundings Close observation of pt RISK FOR COMPLICATIONS: - DVT Active and Passive ROM exercises Administer medications per MD order Assist patient with frequent position changes Elevate BLE - CHF Assess/ Monitor pt for s/s cardiac/respiratory distress - Skin Breakdown Encourage ambulation as tolerated Repositioning q 2 hours Use of pillows or foam wedges while in bed - Seizure Identify risk factors Provide safety measures Monitor for headaches Administer prescribed medications and supplemental O2 - Pain Administer prescribed pain medication as needed Anticipate the need for pain medication for optimal pain managment Assess pt for pain and Administer prescribed pain medication as needed - Stroke Assess/ Monitor and maintain patient pain level Assess/ Monitor patient blood pressure - Falls Maintain call light within patient reach for easy access to nursing assistance Provide assistance getting out of bed and with ambulation Provide assistive devices SUMMARY OF ACUTE HOSPITALIZATION: On 10/18/2021 he was admitted to [facility] and underwent emergency surgery for 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 On 10/18/2021 Pt. presented to [facility] with sudden onset of bilateral weakness. Pt. is a 81 yo male. Pre-morbidly, Pt. was independent/mod-I in Locomotion and Self-Care; and he had good Endurance, Sphin cter Control, and Safety Awareness. Currently, he has deficits of Locomotion, Safety Awareness, Balance, Transfers Control, Self-Care, an d Endurance. Pt. is now referred to [facility] for acute in-patient rehabilitation in order to maximize patient's functional independence in activities of daily living, strength, ROM, and mobi lity. Patient has realistic goal of being discharged at assistance level 6-Odell to reside at Home with Fam lucretia/Relatives. 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) Age-related cataract (H25) Emphysema (J43) PAST SURGICAL HISTORY: Back Surgery Carotid endarterectomy Craniotomy Right George hole frontal craniotomy Gallbladder removal Heart Surgery TKA MEDICATION ALLERGIES: Codeine Geodon Iodine Morphine Quetiapine Fumarate Ziprasidone Hydrochloride ENVIRONMENTAL ALLERGIES: Kiwi Extract Strawberries - Substance Allergies None Known - Other Allergies None Known CODE STATUS: Full code WEIGHT/HEIGHT/BMI: WEIGHT 164 lbs HEIGHT 5' 9" BMI 24.2 DIET: - Diet Type Regular - Diet - Solid Texture Regular - Diet - Liquid Texture Regular - Tube Feed N/A SKIN DIAGRAM: TRANG Drain on Head; extent - small; stage - NS(Not Stageable). Treatment - Per Physician's Orders. REVIEW OF SYSTEMS: - Gen Alert and awake Lying in bed No apparent distress Oriented to: person, time, and place - Vital Signs Temperature: 97.8 F SBP/DBP: 145/66 Pulse: 85 Resp: 18 Vital signs stable, afebrile - CVS RRR VITAL SIGNS Temperature: 97.8 F SBP/DBP: 145/66 Pulse: 85 Resp: 18 Vital signs stable, afebrile MEDICATIONS/TREATMENT: Other- See attached MAR (Medication Administration Record). CURRENT SPHINCTER CONTROL: Pre-hospital bladder status: unspecified # of bladder accidents in the last 7 days prior to screenin Pre-hospital bowel status: unspecified # of bowel accidents in the last 7 days prior to screenin Last Bowel Movement Date: 10/20/2021 CURRENT LOCOMOTION STATUS: distance walked 65 feet DETAILED CURRENT FUNCTIONAL STATUS: - Bladder accident frequency: 7-Ind - No accidents in the past 7 days - Bowel accident frequency: 7-Ind - No accidents in the past 7 days - Walking score based on distance walked: 0(N/A) score based on distance walked: 2(50-149ft) - Wheelchair score based on distance traveled: 0(N/A) QI SCORES: - Self-Care A. Eating 06-Independent B. Oral hygiene 04-Supervision or touching assistance C. Toileting hygiene 03-Partial/moderate assistance E. Shower/bathe self 03-Partial/moderate assistance F. Upper body dressing 04-Supervision or touching assistance G. Lower body dressing 03-Partial/moderate assistance H. Putting on/taking off footwear 03-Partial/moderate assistance - Mobility A. Roll left and right 04-Supervision or touching assistance B. Sit to lying 04-Supervision or touching assistance C. Lying to sitting on side of bed 04-Supervision or touching assistance D. Sit to stand 04-Supervision or touching assistance E. Chair/[id number] transfer 04-Supervision or touching assistance F. Toilet transfer 04-Supervision or touching assistance G. Car transfer 09-Not applicable I. Walk 10 feet 04-Supervision or touching assistance J. Walk 50 feet with two turns 04-Supervision or touching assistance K. Walk 150 feet 88-Not attempted due to medical condition or safety concerns L. Walking 10 feet on uneven surfaces 88-Not attempted due to medical condition or safety concerns M. 1 step (curb) 88-Not attempted due to medical condition or safety concerns N. 4 steps 88-Not attempted due to medical condition or safety concerns O. 12 steps 88-Not attempted due to medical condition or safety concerns P. Picking up object 88-Not attempted due to medical condition or safety concerns R. Wheel 50 feet with two turns 09-Not applicable S. Wheel 150 feet 09-Not applicable - Bladder and Bowel Bladder continence 2-Incontinent less than daily Bowel continence 1-Occasionally incontinent - Endurance Fair - Balance Poor - Safety Awareness Poor CURRENT FUNC. DEFICITS: Mobility, Endurance, Balance, Safety Awareness, and Self-Care CURRENT / PREVIOUS ASSISTIVE DEVICES: Rolling Walker Shower Chair Wheelchair HISTORY OF FALLS. HAS THE PATIENT HAD TWO OR MORE FALLS IN THE PAST YEAR OR ANY FALL WITH INJURY IN T HE PAST YEAR?: Yes PRIOR SURGERY. DID THE PATIENT HAVE MAJOR SURGERY DURING THE 100 DAYS PRIOR TO ADMISSION?: No THERAPY NOTES FROM ACUTE CARE: Attached. SPECIAL NEEDS: - Safety Concerns Skin breakdown precautions needed due to skin breakdown risk Fall precautions needed due to Fall history, Poor balance, and High fall risk - Wound Head Wound - TRANG drain on head PRECAUTIONS: - Weight Bearing Precaution WBAT both LE - Fall Precaution Bed alarm TABS alarm Wheel chair alarm - Skin Breakdown Risk Routine Wound care due to restricted mobility and age - DVT Risk due to restricted mobility PATIENT NEEDS ACTIVE AND ONGOING THERAPEUTIC INTERVENTION OF MULTIPLE THERAPY DISCIPLINES, INCLUDING: - Dietary and Nutrition Adequate Nutrition. Nutritional Education. Nutritional Supplements. - Occupational Therapy Cognitive Retraining. Patient needs Occupational Therapy for a daily minimum of 1.25 hours at least 5 out of 7 days, to improve Activities of Daily Living, including: Eating, Grooming, Bathing, Dressing , Toileting, Toilet Transfers, Community Reintegration, Higher functional activities, Adaptive Equipm ent, Splinting, Household Tasks, and Other activities as determined. Visual Perceptual Training. - Speech Therapy Cognitive Training. Expressive Language Skills. Memory Strategies. Patient needs Speech Therapy for a daily minimum of .5 hours at least 5 out of 7 days, to improve: Swallowing, Cognition, Language Skil ls, and Compensatory Strategies. Receptive Language Skills. Speech Intelligibility Training. - Physical Therapy Patient needs Physical Therapy for a daily minimum of 1.25 hours at least 5 out of 7 days, to improve : Mobility, Strengthening, Transfers, Stretching, ROM, Endurance, Ability to manage stairs, Gait, and Balance. PATIENT NEEDS CLOSE MEDICAL SUPERVISION BY A REHABILITATION PHYSICIAN FOR: Coordination of Treatment Team Medical and Co-Morbidity Management Post-Op Complications Wound Care Bowel and Bladder Management Pain Management PATIENT REQUIRES 24X7 REHAB NURSING FOR MEDICAL AND FUNCTIONAL MGT. OF THE FOLLOWING DEFICITS: Patient requires 24x7 Rehabilitation Nursing for: Pain Issues, Identifying and preventing risk factor s, Monitoring and reporting current medical conditions, Assisting with ambulation and transfer, Linden ting with all ADL-s, Teaching patients about disease process and medications, Family teaching, Provid ing safe environment, Bowel and Bladder Issues, Skin Integrity, and Medication Management PATIENT REQUIRES INTENSIVE, COORDINATED INTERDISCIPLINARY APPROACH TO REHAB: Patient needs Dietary and Nutrition Services for: Adequate Nutrition, Nutritional Supplements, and Nu tritional Education Patient needs Morale Officer and/or Case Management for: Discharge Planning, Arranging Home Equipmen t or Services, and Family Interventions PATIENT REHAB POTENTIAL: Vinayak KUO is able and expected to receive 3 hours of individualized therapy daily on at least 5 of e very 7 days Vinayak KUO's prognosis for significant practical improvement within a reasonable period of time appea rs Good Expected level of measurable improvement will be of a practical value to Vinayak KUO's functional capa city or adaptations to impairments Has a viable Discharge Plan Medically appropriate; condition is sufficiently stable to participate in intensive rehab program DISCHARGE PLAN: - Estimated Length of Stay (days) 17. - Consensus on plan Discharge plan has been discussed with primary caregiver. Patient/Family is in agreement with the nikolas n. Primary caregiver is in agreement with the plan. - Patient/Family Goals Return home independently. - Planned Living Setting Upon Discharge Home, to live with Family/Relatives. Transitional Living. RECOMMENDED CARE LEVEL: IRF RECOMMENDATION DETAILS: Recommended Admission to Comprehensive Rehabilitation Program to Increase Functional [place] SCREENER'S COMPLETENESS CONFIRMATION: - Screening Confirmation The patient data collection on this preadmission screening form is finished PHYSICIANS REVIEW AND ADMISSION DETERMINATION Admit - Based on my review of the Pre-Admission Screening results, in my medical judgment and experie nce, I concur with the findings and recommend admission to [facility], as this patient requires an IRF level of care. SIGNATURE PANEL: Clinical Liaison - [electronically] signed by Marisa Narayan on 10/20/2021 at 14:13 (CDT) Physician Reviewer - [electronically] signed by Dr. Jax Cameron M.D. on 10/20/2021 at 14:32 (CDT )
--- OUTSIDE RECORDS SUMMARY | 2021-10-20 20:38 | XMS REPORT | Continuity of Care Document ---
:1940 Author Organization [facility] t Address [address] [place] [address] [address]. [address] [place] [address] Care Team Providers Name Role Phone SEBASTIEN VILLATORO Primary Care Physician UnavailCORINNA Roldan Attending Clinician Unavailable [id number] Attending Clinician Unavailable LOAN LYONS Attending Clinician Unavailable VARGAS ZAMBRANO Attending Clinician Unavailable CHI STONE Attending Clinician Unavailable SYLVESTER STONE Attending Clinician Unavailable [facility]I STONE Attending Clinician Unavailable HANS MCKEON NATASHA Attending Clinician Unavailable JARETT LAWRENCE Attending Clinician Unavailable KERVIN BRADLEY Attending Clinician Unavailable CHRISTINA GRACIA Attending Clinician Unavailable CE EDMONDS Attending Clinician Unavailable DEISY DA SILVA Attending Clinician Unavailable DOYLE STOVER Attending Clinician Unavailable Vargas Zambrano MD Attending Clinician DANIAL SMITH Attending Clinician Unavailable [id number] Admitting Clinician Unavailable LOAN LYONS Admitting Clinician Unavailable VARGAS ZAMBRANO Admitting Clinician Unavailable CHI STONE Admitting Clinician Unavailable HANS MCKEON NATASHA Admitting Clinician Unavailable KERVIN BRADLEY Admitting Clinician Unavailable DEISY DA SILVA Admitting Clinician Unavailable DANIAL SMITH Admitting Clinician Unavailable Payers Payer Name Policy Type Policy Number Effective Date Expiration Date Vangie lucero MEDICARE PART A [id number] 2005 2024 AND B 00:00:00 00:00:00 MEDICARE A B [id number] 2005 00:00:00 MEDICARE PART A [id number] 2005 \\T\\ B - MEDICARE 00:00:00 MCR MCR [id number] Problems Condition Condition Condition Status Onset Resolution Last Treating Co mments Source Name Details Category Date Date Treatment Clinician Date Hx of Hx of Disease Active [facility] exercise exercise 04-17 [facility] stress stress 00:00: of test test 00 Medicin e Renal Renal Disease Active [facility] 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[place] aneurysm aneurysm 00:00: of (HCCode) (HCCode) 00 Medici n e Allergies, Adverse Reactions, Alerts Allergy Allergy Status Severity Reaction(s) Onset Inactive Treating Comm ents Source Name Type Date Date Clinician TOSITUMO Allergy Active Med Other [facility] MAB 7- 00:00: 00 ZIPRASID Allergy Active High Other [facility] ONE HCL 7- 00:00: 00 Codeine Propensi Active [facility] ty to 29 College adverse 00:00: of reaction 00 Medicin s to e drug Kdc:[facility]cleod Propensi Active [facility] ow ty to 04-17 College Dye+Zipr adverse 00:00: of asidone+ reaction 00 Medici n Brillian s to e t Blue drug [facility] Iodine Propensi Active [facility] ty to 04-17 College adverse 00:00: of reaction 00 Medicin s to e drug Opioid Propensi Active [facility] Analgesi ty to 04-17 College cs adverse 00:00: of reaction 00 Medicin s to e drug CITRUS Allergy Active Med Other 2018-[address] [facility]18 [facility] DERIV[facility] VES 00 Center CODEINE Allergy Active High Hives [facility] IODINATE Allergy Active High Anaphylaxis [facility] CONTRAST 00:00: Medical MEDIA 00 Center KIWI Allergy Active High Anaphylaxis [facility] (ACTINID [facility] [place] 00:00: Medical CHINENSI 00 Center S) MORPHINE Allergy Active High [facility]aphylaxis [facility] QUETIAPI Allergy Active Med Other [facility] FUMARATE 00:00: Medical 00 Center STRAWBER Allergy Active High Anaphylaxis [facility] ZIPRASID Allergy Active High Other [facility] ONE -14 [facility] MESYLATE 00:[facility]: Medical 00 Center Codeine Propensi Active Other [facility] ty to 08-31 reaction( College adverse 00:00: s): chest of reaction 00 pain, Medicin s to N\\V, e drug Hives/Kevin hOther reaction( s): Hives/Kevin hOther reaction( s): Hives/Kevin h Kiwi Propensi Active Anaphylaxis Other [facility] Extract ty to 08-31 reaction( Colleg e adverse 00:00: s): of reaction 00 Anaphylax Medic in s to isThroat e drug swells, per ptThroat swells, per pt Morphine Propensi Active Other [facility] ty to 08-31 reaction( College adverse 00:00: s): of reaction 00 Anaphylax Medic in s to isOther e drug reaction( s): Anaphylax isOther reaction( s): Anaphylax is Quetiapi Propensi Active Other [facility] ne ty to 08-31 reaction( [place] Fumarate adverse 00:00: s): of reaction 00 extrapyra Medic in s to dimal e drug symptoms, UnknownOt her reaction( s): UnknownOt her reaction( s): Unknown Strawber Propensi Active Other [facility] ty to 08-31 reaction( College adverse 00:00: s): of reaction 00 Anaphylax Medic in s to is, e food Unknown Ziprasid Propensi Active Other [facility] one ty to 08-31 reaction( [place] Hydrochl adverse 00:00: s): of oride reaction 00 altered Medicin s to mental e drug status, agitation , extrapyra dimal symtomsOt her reaction( s): altered mental status, agitation Other reaction( s): altered mental status, agitation Social History Social Habit Start Date Stop Date Quantity Comments Source Tobacco use and 2019-04-17 2019-04-17 Smokeless tobacco [facility] exposure 00:00:00 00:00:00 non-user of Medicine Sex Ass[birth year] At [birth year] [facility] Co hang 00:00:00 00:00:00 of Medicine Smoking Status Start Date Stop Date Source Never smoked tobacco [facility] of [facility] Medications Ordered Filled Start Stop Current Ordering Indication Dosage Frequency Signature Comments Components Source Medication Medication Date Date Medication? Clinician (SIG) Name Name fluticasone Yes 1{spray 1 [place] by [facility] (FLONASE) 04-16 } [facility] 50 MCG/ACT 12:25: route. of nasal spray 28 Medicin e Mirabegron Yes 25mg Take 25 mg [facility] 25 MG 04-16 by mouth. Colleg e TB24 12:25: of 28 Medicin e atorvastati Yes 80mg Take 80 mg [facility] n (LIPITOR) 04-16 by mouth [facility] 80 MG 12:25: daily. of tablet 28 Medicin e Calcium Yes Take by [facility] Acetate-Mag 04-16 mouth. Colleg e nesium Carb 12:25: of 450-200 MG 28 Medicin TABS e fluticasone Yes 1{spray 1 [place] by [facility] (FLONASE) 04-17 } [facility] 50 MCG/ACT 17:28: route. of nasal spray 46 Medicin e Mirabegron Yes 25mg Take 25 mg [facility] 04-17 by mouth. College (MYRBETRIQ) 17:28: of 25 MG TB24 46 Medicin e atorvastati Yes 80mg Take 80 mg [facility] n (LIPITOR) 04-17 by mouth [facility] 80 MG 17:28: daily. of tablet 46 Medicin e Calcium Yes Take by [facility] Acetate-Mag 04-17 mouth. Colleg e nesium Carb 17:28: of 450-200 MG 46 Medicin TABS e amlodipine Yes 10mg Take 10 mg [facility] (NORVASC) 9-04 by mouth. Colle ge 10 MG 00:00: of tablet 00 Medicin e losartan Yes AT BEDTIME [place] [facility] (COZAAR) 50 9-04 College MG tablet 00:00: of 00 Medicin e amlodipine 2019-0 Yes 10mg Take 10 mg [facility] (NORVASC) 9-04 by mouth. Colle ge 10 MG 00:00: of tablet 00 Medicin e losartan 2019-0 Yes AT BEDTIME [place] [facility] (COZAAR) 50 9-04 College MG tablet 00:00: of 00 Medicin e clopidogrel 2019- Yes 1{tbl} 1 Tab. [facility] (PLAVIX) 75 2-12 College MG Tablet 00:00: of 00 Medicin e clopidogrel 2019-0 Yes 1{tbl} 1 Tab. [facility] (PLAVIX) 75 2-12 College MG Tablet 00:00: of 00 Medicin e Vital Signs Vital Name Observation Time Observation Value Comments Source HEIGHT 2021-10-18 07:00:00 175.3 cm WEIGHT 2021-10-18 07:00:00 76.34 kg HEIGHT 2021-10-07 11:11:00 175.3 cm WEIGHT 2021-10-07 11:11:00 78.019 kg HEIGHT 2021-10-18 07:00:00 175.3 cm WEIGHT 2021-10-18 07:00:00 76.34 kg HEIGHT 2021-10-07 11:11:00 175.3 cm WEIGHT 2021-10-07 11:11:00 78.019 kg Systolic blood 2021-04-16 18:17:00 136 mm[Hg] [facility] pressure Medicine Diastolic blood 2021-04-16 18:17:00 71 mm[Hg] [facility] pressure Medicine Heart rate 2021-04-16 18:17:00 72 /min [facility] Body temperature 2021-04-16 18:17:00 36.17 Agatha [facility] Respiratory rate 2021-04-16 18:17:00 16 /min [facility] Body height 2021-04-16 18:17:00 175.3 cm [facility] Body weight 2021-04-16 18:17:00 74.844 kg [facility] BMI 2021-04-16 18:17:00 24.37 kg/m2 [facility] C [facility] of [facility] Oxygen saturation in 2021-04-16 18:17:00 97 /min [facility] Arterial blood by Medicine Pulse oximetry HEIGHT 2021-03-31 [...] kg Systolic blood 2019-04-17 17:28:00 158 mm[Hg] [facility] pressure Medicine Diastolic blood 2019-04-17 17:28:00 78 mm[Hg] [facility] pressure Medicine Heart rate 2019-04-17 17:28:00 69 /min [facility] Body weight 2019-04-17 17:28:00 78.472 kg [facility] Procedures This patient has no known procedures. Plan of Care Planned Activity Planned Date Details Comments Source Future Scheduled 2021-04-16 COVID-19 Vaccine (1) [facility] Test 13:24:17 [code = COVID-19 of Medicine Vaccine (1)] Future Scheduled 2021-04-16 TETANUS SHOT (ADULT) [facility] Test 13:24:17 [code = TETANUS SHOT of Medi cine (ADULT)] Future Scheduled 2021-04-16 ZOSTER VACCINE (1 of [facility] Test 13:24:17 2) [code = ZOSTER of Medicin e VACCINE (1 of 2)] Future Scheduled 2021-04-16 MEDICARE AWV [facility] Test 13:24:17 (Initial) [code = of Medicin e MEDICARE AWV (Initial)] Future Scheduled 2021-04-16 Pneumococcal 65+ (1 [employer] Test 13:24:17 of 1 - PPSV23) [code of Medi cine = Pneumococcal 65+ (1 of 1 - PPSV23)] Future Scheduled 2021-04-16 FLU VACCINE > 6 [facility] C [facility]lege Test 13:24:17 MONTHS [code = FLU of Medici ne VACCINE > 6 MONTHS] Future Scheduled 2021-04-16 FALL SCREEN [code = [employer] Test 13:24:17 FALL SCREEN] of Medicine Future Scheduled 2021-04-16 CT HEAD WO CONTRAST 1 Occurrences [place] [employer] Test 12:40:52 [code = 93014-9] starting of Medicine 04/16/2021 until 04/16/2022 Future Scheduled TETANUS SHOT (ADULT) [employer] Test [code = TETANUS SHOT of Medi cine (ADULT)] Future Scheduled MEDICARE AWV [facility] Test (Initial) [code = of Medicin e MEDICARE AWV (Initial)] Future Scheduled FALL SCREEN [code = [employer] Test FALL SCREEN] of Medicine Future Scheduled PNEUMOVAX >=65 [facility] Co llege Test (PPSV23) [code = of Medicine PNEUMOVAX >=65 (PPSV23)] Future Scheduled PREVNAR >= 65 [facility] Col [facility]ge Test (PCV13) [code = of Medicine PREVNAR >= 65 (PCV13)] Future Scheduled FLU VACCINE > 6 [facility] C [facility]lege Test MONTHS [code = FLU of Medici ne VACCINE > 6 MONTHS] Encounters Start End Encounter Admission Attending Care Care Encounter Source Date/Time Date/Time Type Type Clinicians Facility Department ID 2021-06-16 Outpatient [facility]I [facility] [id number] 82-2 [place] 01:04:29 , [id number] [facility] 2021-04-15 Outpatient 3 [id number] [facility] REF [id number] [facility] 13:44:55 0118 2021-03-30 Inpatient ER [facility] Neurosurger [id number] 15:51:19 y [facility] 2021-03-16 [facility] ICU [id number] 11:23:09 [facility] 2020-12-22 Inpatient LISA ZAMBRANO [facility] Surgery [id number] SLE 15:37:42 VARGAS 2021-10-18 2021-10-20 Inpatient LISA STONE [facility] Surgery [id number] [facility] 07:06:00 19:42:00 [facility] 2021-10-18 2021-10-[address] [facility] [id number] [facility] 07:06:00 23:59:00 Colleg e of Medicin e 2021-10-07 2021-10-07 [facility] [id number] [facility] 11:37:38 23:59:00 2021-08-18 2021-08-18 Outpatient EDNA GARCIA [facility] [id number] [facility] 13:32:13 23:59:00 SYLVESTER 2021-06-16 2021-06-16 [facility] [id number] [facility] 13:18:26 13:18:26 [facility] Colleg e of Medicin e 2021-04-07 2021-04-23 Inpatient 3 [place], [place] [id number] [facility] 19:19:00 13:25:00 HANS Bacon9 2021-04-16 2021-04-16 Office SHASHA LAWRENCE [id number] [facility] 12:09:26 14:59:30 Visit JARETT AMBULATOR [id number] College Y [id number] Medi jessi 300 e 2021-03-30 2021-04-07 Inpatient ER CHRISTINA GRACIA [facility] Surgery [id number] [facility] 21:12:00 18:41:00 2021-03-30 2021-03-[address] [facility] [id number] [facility] 21:12:00 23:59:00 Colleg e of Medicin e 2021-03-15 2021-03-15 Outpatient EDNA GARCIA [facility] [id number] [facility] 00:00:00 23:59:00 [facility] 2021-03-14 2021-03-15 Inpatient ER KENDAL [facility] Neuro ICU [id number] [facility] 01:11:00 12:29:00 CE 2021-02-24 2021-02-27 Inpatient ER DOYLE STOVER [facility] Surgery [id number] SLE 19:54:00 17:51:00 2019-08-15 2019-08-15 Outpatient EL [facility] [id number] SLE 00:00:00 00:00:00 2019-08-13 2019-08-13 Outpatient [facility] [id number] SLE 00:00:00 00:00:00 [id number] 2019-06-17 2019-06-17 Outpatient [facility] [id number] SLE 00:00:00 00:00:00 [id number] 2019-04-17 2019-04-17 Office SHASHA Zambrano [id number] [facility] 11:16:47 14:53:18 Visit Vargas AMBULATOR [id number] College Y [id number] of [id number] [facility] 825 e Results Test Description Test Time Test Comments Results Result Comments Source SARS-COV2/RT-PCR ([facility]) 2021-10-20 15:25:17 Test Item Value Reference Range Interpretation Comme nts SARS-COV2/RT-PCR (test code = Negative Negative The SARS-CoV-2 target nucleic [id number]) acids are not d etected in this specimen. Negat mary jane results do not preclude SA RS-CoV-2 infection and s hould not be used as the sole bas is for patient management deci sions. Negative results must be combined with clinical observ ations, patient history, and ep idemiological information. A false negative result may occu r if a specimen is improperly c ollected, transported or handled. This SARS CoV-2 test is a rapid, real-time RT-PC R test intended for the qualita tive detection of nucleic acid fr om SARS-CoV-2 in a nasopharyngea l swab specimen collected from individuals suspected of CO VID-19 by their healthcare [facility] ider. This test has been authorized by FDA under an EUA for use by authorized laboratories. This test is only authorized for the duration of the declaration that circumstances exist justifying the authorization of emergency use of in vitro diagnostic tests for detection and/or diagnosis of COVID-19 under Section 564(b)(1) of the Federal Food, Drug and Cosmetic Act, 21 U.S.C. 360bbb-3(b)(1), unless the authorization is terminated or revoked sooner. Fact Sheet for Healthcare Providers: https://www.EventCombo m/Documents/Xpert%20Xpress%20SARS%20CoV-2/Fact%20Sheets/302-3802%45LIMR-MNX-2%20 HEALTHCARE%20PROVIDERS%20FACT%20SHEET.pdf Fact Sheet for Healthcare Patients: https://www.bizk.it/Documents/Xpert%20Xp ress%20SARS%20CoV-2/Fact%20Sheets/302-3801%82LVPX-HSL-8%20PATIENT%20FACT%20SHEET .[id number] 06:29:02 Test Item Value Reference Range Interpretation Comments MAGNESIUM (BEAKER) (test code = 1.9 mg/dL 1.6-2.6 627) Sand Mixer Machine ID - PIAYA [id number] 06:29:02 Test Item Value Reference Range Interpretation Comments PHOSPHORUS (BEAKER) (test code = 3.0 mg/dL 2.3-4.7 604) Sand Mixer Machine ID - PIAYA LBASIC METABOLIC [id number] 06:29:01 Test Item Value Reference Range Interpretation Comments SODIUM (BEAKER) 139 meq/L 136-145 (test code = 381) POTASSIUM 3.8 meq/L 3.5-5.1 (BEAKER) (test code = 379) CHLORIDE (BEAKER) 110 meq/L 98-107 H (test code = 382) CO2 (BEAKER) 23 meq/L 22-29 (test code = 355) BLOOD UREA 10 mg/dL 7-21 NITROGEN (BEAKER) (test code = 354) CREATININE 0.74 mg/dL 0.57-1.25 (BEAKER) (test code = 358) GLUCOSE RANDOM 122 mg/dL 70-105 H (BEAKER) (test code = 652) CALCIUM (BEAKER) 8.3 mg/dL 8.4-10.2 L (test code = 697) EGFR (BEAKER) 91 Interpretatio n of eGFR (test code = mL/min/1.73 values Stage De scription 1092) sq m Result G1 Tonya l or high >=90 G2 Mildly decreased 60-89 G3a Mildl y to moderately 45-5 9 G3b Moderately to s everely 30-44 G4 Severl y decreased 15-29 G5 Kidney failure <15Reported eGF R is based on the CKD-EPI 2020 equation that d oes not use a race coefficientEsti mated GFR is not as accur ate as Creatinine Ailyn amira in predicting glom erular filtration rate . Estimated GFR is not appl icable for dialysis patien ts Sand Mixer Machine ID - PIAYA LCBC (HEMOGRAM ONLY)2021-10-19 05:34:14 Test Item Value Reference Range Interpretation Comments WHITE BLOOD CELL COUNT (BEAKER) 7.7 K/ L 3.5-10.5 (test code = 775) RED BLOOD CELL COUNT (BEAKER) 3.26 M/ L 4.63-6.08 L (test code = 761) HEMOGLOBIN (BEAKER) (test code = 9.6 GM/DL 13.7-17.5 L 410) HEMATOCRIT (BEAKER) (test code = 30.0 % 40.1-51.0 L 411) MEAN CORPUSCULAR VOLUME (BEAKER) 92.0 fL 79.0-92.2 (test code = 753) MEAN CORPUSCULAR HEMOGLOBIN 29.4 pg 25.7-32.2 (BEAKER) (test code = 751) MEAN CORPUSCULAR HEMOGLOBIN CONC 32.0 GM/DL 32.3-36.5 L (BEAKER) (test code = 752) RED CELL DISTRIBUTION WIDTH 14.8 % 11.6-14.4 H (BEAKER) (test code = 412) PLATELET COUNT (BEAKER) (test 109 K/CU MM 150-450 L code = 756) MEAN PLATELET VOLUME (BEAKER) 11.1 fL 9.4-12.4 (test code = 754) NUCLEATED RED BLOOD CELLS 0 /100 WBC 0-0 (BEAKER) (test code = 413) CT, BRAIN, WITHOUT IV [id number] 14:35:00Unlisted Reason for Exam - Click Yes and Enter Reason Below->YesUnlisted Reason for Exam->History of subdural hematomaGEMA [facility]ENTER[facility]UO : 1940 Sex: MFINAL REPORT CT, BRAIN, WITHOUT IV CONTRAST HISTORY: Chronic subdural hematoma status post evacuation. COMPARISON: Head CTs on 04/03/2021 and 03/31/2021. Brain MRI on 03/31/2021. TECHNIQUE: Noncontrast axial scans were obtained from skull base to the vertex. Coronal and sagittal reconstructions obtained from the axial data. One or more of the following dose reduction techniques were used: Automated exposure control, adjustment of the mA and/or kV according to patient size, and/or utilization of iterative reconstruction technique. DISCUSSION: Scalp/Skull: Right hemispheric craniectomy.Brainsulci: Moderate generalized volume loss. Right hemispheric sulcal effacement has resolved.Ventricles: Mild compensatory dilation. Cavum septum pellucidum et vergae is present, a normal variant.Extra-axial spaces: Postsurgical right hemispheric pneumocephalus and blood has resolved. Associated mass effect has also resolved. No mass or fluid collection. Carotid siphon and intradural vertebral artery calcifications Parenchyma: Scattered and confluent regions of white matter hypoattenuation are nonspecific but most likely represent chronic microvascular ischemic white matter changes.No masses, acute hemorrhage, or large vascular territory acute infarct. 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 Dural sinuses: No abnormal densities.Sellar/Suprasellar region: Intact.Skull base: Intact.Additional findings: Chronic right lamina papyracea defect. Chronic right maxillary sinus mucosal thickening with osteitis, atelectasis, and anterior wall defect. Additional mild scattered paranasal sinus mucosal thickening. The mastoid air cells are mildly sclerotic. There are prominent degenerative changes throughout the upper cervical spine. Scattered caries/mild periapical lucencies. I MPRESSION:1.No acute intracranial abnormalities.2.Interval resolution of right hemispheric extra-axial pneumocephalus, hemorrhage, and fluid. Associated mass effect has resolved. 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 Signed: Adrian Myers Verified Date/Time: 08/18/2021 14:35:26 AFB CULTURE + SMEAR (NON-SPUTUM)2021-05-20 14:09:29 Test Item Value Reference Range Interpretation Comments CULTURE (BEAKER) (test No acid-fast bacilli code = 1095) isolated in 42 days AFB SMEAR (BEAKER) No acid fast bacilli (test code = 994) seen AFB CULTURE + SMEAR (NON-SPUTUM)2021-05-20 14:09:29 Test Item Value Reference Range Interpretation Comments CULTURE (BEAKER) (test No acid-fast bacilli code = 1095) isolated in 42 days AFB SMEAR (BEAKER) No acid fast bacilli (test code = 994) seen AFB CULTURE + SMEAR (NON-SPUTUM)2021-05-20 14:09:28 Test Item Value Reference Range Interpretation Comments CULTURE (BEAKER) (test No acid-fast bacilli code = 1095) isolated in 42 days AFB SMEAR (BEAKER) No acid fast bacilli (test code = 994) seen AFB CULTURE + SMEAR (NON-SPUTUM)2021-05-20 14:09:28 Test Item Value Reference Range Interpretation Comments CULTURE (BEAKER) (test No acid-fast bacilli code = 1095) isolated in 42 days AFB SMEAR (BEAKER) No acid fast bacilli (test code = 994) seen AFB CULTURE + SMEAR (NON-SPUTUM)2021-05-20 14:09:28 Test Item Value Reference Range Interpretation Comments CULTURE (BEAKER) (test No acid-fast bacilli code = 1095) isolated in 42 days AFB SMEAR (BEAKER) No acid fast bacilli (test code = 994) seen FUNGUS CULTURE + [id number] 00:24:25 Test Item Value Reference Range Interpretation Comments CULTURE (BEAKER) (test No fungus isolated in code = 1095) 28 days FUNGUS SMEAR (BEAKER) No fungal elements seen (test code = 1406) FUNGUS CULTURE + [id number] 00:24:25 Test Item Value Reference Range Interpretation Comments CULTURE (BEAKER) (test No fungus isolated in code = 1095) 28 days FUNGUS SMEAR (BEAKER) No fungal elements seen (test code = 1406) FUNGUS CULTURE + [id number] 00:23:23 Test Item Value Reference Range Interpretation Comments CULTURE (BEAKER) (test No fungus isolated in code = 1095) 28 days FUNGUS SMEAR (BEAKER) No fungal elements seen (test code = 1406) FUNGUS CULTURE + [id number] 00:23:23 Test Item Value Reference Range Interpretation Comments CULTURE (BEAKER) (test No fungus isolated in code = 1095) 28 days FUNGUS SMEAR (BEAKER) No fungal elements seen (test code = 1406) FUNGUS CULTURE + [id number] 00:23:23 Test Item Value Reference Range Interpretation Comments CULTURE (BEAKER) (test No fungus isolated in code = 1095) 28 days FUNGUS SMEAR (BEAKER) No fungal elements seen (test code = 1406) TISSUE [id number] 17:24:26Surgical Pathology Report Case: [id number] Authorizing Provider: Chi Stone MD Collected: 03/31/2021 02:55 PM Ordering Location: [facility] Received: 04/01/2021 08:14 AM SERVICES Pathologist: Zeferino Warner MD Specimen: Bone, Right frontal bone BONE, SKULL CRANIECTOMY:WOVEN BONE, WITHOUT INTRAMEDULLARY INFLAMMTIONFRAGMENTS OF GRANULATION TISSUE WITH DEGENERATED BONE, WITH MILD ACUTE AND CHRONIC INFLAMMATION Signing Pathologist Direct Phone Line: [phone] signed by Zeferino Warner MD on 04/11/2021 at 5:24 PMRecommend follow-up of microbiologic cultures. [id number]; [id number] empyemaSkull, right frontalA. Received fresh labeled with the patient's name, medical record number and "bone" is a 10.2 x 5.7 x 0.6 cm irregular portion of blanton skull with a scant amount of p eriosteum. The specimen is sectioned and no gross lesions are identified. Laborer sections are submitted in A1-A2, following decalcification.PRESTON Gay PA ([facility])cmPERFORMEDANAEROBIC CULTURE 2021-04-07 11:21:45 Test Item Value Reference Range Interpretation [...] 20 % 20-55 (test code = 2590) Sand Mixer Machine ID - JENNIFER [id number] 04:25:07 Test Item Value Reference Range Interpretation Comments FERRITIN (BEAKER) (test code = 209.36 ng/mL 5.00-275.00 361) Sand Mixer Machine ID - JENNIFER WVITAMIN B12 AND [id number] 04:25:07 Test Item Value Reference Range Interpretation Comments VITAMIN B12 552 pg/mL 213-816 (BEAKER) (test code = 774) FOLATE (BEAKER) 12.00 ng/mL See_Comment [Automated message] (test code = 362) The system which generated this result transmitted ref erence range: >=7.00. The reference range was not used to interpr et this result as normal/abnormal . Sand Mixer Machine ID - JENNIFER [id number] 03:45:59 Test Item Value Reference Range Interpretation Comments MAGNESIUM (BEAKER) (test code = 2.1 mg/dL 1.6-2.6 627) Sand Mixer Machine ID - ISAK MBASIC METABOLIC [id number] 03:45:58 Test Item Value Reference Range Interpretation [...] S NOT APPLICABLE FOR DIALYSIS PATIEN TS. Sand Mixer Machine ID - ISAK MCBC W/PLT COUNT & AUTO [id number] 03:22:50 Test Item Value Reference Range Interpretation [...] 0-1 PERCENT (BEAKER) (test code = 2801) [id number] 04:29:13 Test Item Value Reference Range Interpretation Comments MAGNESIUM (BEAKER) (test code = 2.1 mg/dL 1.6-2.6 627) Sand Mixer Machine ID - LELIA LBASIC METABOLIC [id number] 04:29:12 Test Item Value Reference Range Interpretation [...] S NOT APPLICABLE FOR DIALYSIS PATIEN TS. Sand Mixer Machine ID - LELIA LCBC W/PLT COUNT & AUTO [id number] 03:53:16 Test Item Value Reference Range Interpretation [...] 2801) RAD, CHEST, PA OR AP, 1 [id number] 15:58:00VAT/Infusion Therapy Nurse to Call Radiology Department when patient is readyReason for exam:->picc placementShould this be performed at the bedside?->Yes [facility] : 1940 Sex: [...] left pleural effusion. No pneumothorax. The cardiac corrine houette is unchanged in size. No acute bone abnormality. Signed: Meg Figueroa MDReport Verified Date/Time: 04/05/2021 15:58:37 Reading Location: [facility] Radiology Reading Room Electronically signedby: MEG FIGUEROA MD on 04/05/2021 03:58 PMBLOOD [id number] 13:00:19 Test Item Value Reference Range Interpretation Comments CULTURE (BEAKER) (test No growth in 5 days code = 1095) BLOOD [id number] 13:00:19 Test Item Value Reference Range Interpretation Comments CULTURE (BEAKER) (test No growth in 5 days code = 1095) The specimen volume collected for this blood culture was below the optimum (10 mL per bottle or 20 mL total). Use of lower volumes may adversely affect recovery and/or detection times of some organisms.ANAEROBIC [id number] 08:19:23 Test Item Value Reference Range Interpretation Comments CULTURE (BEAKER) (test No anaerobes isolated code = 1095) BASIC METABOLIC [id number] 05:57:41 Test Item Value Reference Range Interpretation [...] S NOT APPLICABLE FOR DIALYSIS PATIEN TS. Sand Mixer Machine ID - PITRACIE [id number] 05:57:41 Test Item Value Reference Range Interpretation Comments MAGNESIUM (BEAKER) (test code = 2.2 mg/dL 1.6-2.6 627) Sand Mixer Machine ID - BRANDONTRACIE LCBC W/PLT COUNT & AUTO [id number] 05:27:21 Test Item Value Reference Range Interpretation [...] PERCENT (BEAKER) (test code = 2801) ANAEROBIC [id number] 10:52:29 Test Item Value Reference Range Interpretation Comments CULTURE (BEAKER) (test No anaerobes isolated code = 1095) ANAEROBIC [id number] 10:50:37 Test Item Value Reference Range Interpretation Comments CULTURE (BEAKER) (test No anaerobes isolated code = 1095) BASIC METABOLIC [id number] 04:06:33 Test Item Value Reference Range Interpretation [...] S NOT APPLICABLE FOR DIALYSIS PATIEN TS. Sand Mixer Machine ID - LELIA [id number] 04:06:33 Test Item Value Reference Range Interpretation Comments MAGNESIUM (BEAKER) (test code = 2.1 mg/dL 1.6-2.6 627) Sand Mixer Machine ID - LELIA LCBC W/PLT COUNT & AUTO [id number] 03:35:05 Test Item Value Reference Range Interpretation [...] = 2801) SURGICALLY OBTAINED CULTURE + GRAM [id number] 11:47:50 Test Item Value Reference Range Interpretation Comments CULTURE (BEAKER) (test No growth code = 1095) GRAM STAIN RESULT <1+ White blood cells (BEAKER) (test code = seen 1123) GRAM STAIN RESULT No organisms seen (BEAKER) (test code = 36579) SURGICALLY OBTAINED CULTURE + GRAM [id number] 11:19:28 Test Item Value Reference Range Interpretation Comments CULTURE A From Broth Only Same (BEAKER) (test organism has been code = 1095) isolated from cultures(s) of the same body site and collection date . Repeat identifi cation and susceptibil ity testing perform ed only after consultat ion with the [facility] microbiology laboratory.Refe r to previous cultur e ofSerratia perez escens GRAM STAIN 2+ White blood RESULT (BEAKER) cells seen (test code = 1123) GRAM STAIN No organisms seen RESULT (BEAKER) (test code = 293042) SURGICALLY OBTAINED CULTURE + GRAM [id number] 11:17:25 Test Item Value Reference Range Interpretation Comments CULTURE (BEAKER) (test code No growth = 1095) GRAM STAIN RESULT (BEAKER) 3+ WBCs (test code = 1123) GRAM STAIN RESULT (BEAKER) No organisms seen (test code = 456520) SURGICALLY OBTAINED CULTURE + GRAM [id number] 11:12:56 Test Item Value Reference Range Interpretation [...] No organisms (BEAKER) (test code = seen 754556) SURGICALLY OBTAINED CULTURE + GRAM [id number] 11:05:25 Test Item Value Reference Range Interpretation Comments CULTURE A From Broth Only Same (BEAKER) (test organism has been code = 1095) isolated from cultures(s) of the same body site and collection date . Repeat identifi cation and susceptibil ity testing perform ed only after consultat ion with the [facility] microbiology laboratory.Refe r to previous cultur e ofSerratia perez escens GRAM STAIN 2+ White blood RESULT (BEAKER) cells seen (test code = 1123) GRAM STAIN No organisms seen RESULT (BEAKER) (test code = 387931) CT, BRAIN, WITHOUT [id number] 10:52:00Unlisted Reason for Exam - Click Yes and Enter Reason Below->No [facility] : 1940 Sex: MFINAL REPORT CT, BRAIN, WITHOUT CONTRAST CLINICAL INDICATION: Intraop or postop complications, nervous system COMPARISON: None TECHNIQUE: Noncontrast axial CT imaging of the brain andskull. DOSE REDUCTION: Dose modulation, iterative reconstruction, and/or [...] parenchymal volume loss is again noted. Scattered fociof hypoattenuation are present throughout the periventricular and [...] interim. Decreased size of residual extra-axial mixed intensity hematoma and pneumocephalus with consequent decrease midline shift. If there is persistent clinical concern for intracranial pathology, MR examination is recommended for further characterization. Signed: Shanelle Chapa Verified Date/Time: 04/03/2021 10:52:21 [facility]2022-01-15 08:43:30 Test Item Value Reference Range Interpretation Comments CULTURE (BEAKER) (test No anaerobes isolated code = 1095) [id number] 05:44:59 Test Item Value Reference Range Interpretation Comments PHOSPHORUS (BEAKER) (test code = 2.4 mg/dL 2.3-4.7 604) Sand Mixer Machine MARY PARISI MBASIC METABOLIC [id number] 05:44:58 Test Item Value Reference Range Interpretation [...] S NOT APPLICABLE FOR DIALYSIS PATIEN TS. Sand Mixer Machine ID Valerie PARISI [id number] 05:44:58 Test Item Value Reference Range Interpretation Comments MAGNESIUM (BEAKER) (test code = 2.1 mg/dL 1.6-2.6 627) Sand Mixer Machine ID - ISAK MCBC W/PLT COUNT & AUTO [id number] 05:27:07 Test Item Value Reference Range Interpretation [...] (BEAKER) (test code = 413) BASIC METABOLIC [id number] 05:23:34 Test Item Value Reference Range Interpretation [...] S NOT APPLICABLE FOR DIALYSIS PATIEN TS. Sand Mixer Machine ID - PIAYA [id number] 04:20:57 Test Item Value Reference Range Interpretation Comments PHOSPHORUS (BEAKER) (test code = 1.9 mg/dL 2.3-4.7 L 604) Sand Mixer Machine ID - LELIA [id number] 04:20:56 Test Item Value Reference Range Interpretation Comments MAGNESIUM (BEAKER) (test code = 2.2 mg/dL 1.6-2.6 627) Sand Mixer Machine ID Valerie ROWELL LCBC W/PLT COUNT & AUTO [id number] 04:01:33 Test Item Value Reference Range Interpretation [...] (BEAKER) (test code = 2801) VANCOMYCIN LEVEL, [id number] 21:43:17 Test Item Value Reference Range Interpretation Comments VANCOMYCIN TROUGH (BEAKER) (test 11.7 ug/mL 10.0-20.0 code = 522) Sand Mixer Machine ID - DBHIV-1 ANTIGEN WITH HIV-1/2 [id number] 18:09:38 Test Item Value Reference Range Interpretation Comments HIV-1 ANTIGEN WITH HIV 1\\T\\2 Nonreactive Nonreactive ANTIBODY (2) (BEAKER) (test code = 2586) Sand Mixer Machine ID - DBHEPATITIS PANEL, [id number] 18:09:37 Test Item Value Reference Range Interpretation Comments HEPATITIS A IGM ANTIBODY (BEAKER) Nonreactive Nonreactive (test code = 498) HEPATITIS B CORE IGM ANTIBODY Nonreactive Nonreactive (BEAKER) (test code = 645) HEPATITIS C ANTIBODY (BEAKER) Nonreactive Nonreactive (test code = 367) HEPATITIS B SURFACE ANTIGEN (2) Nonreactive Nonreactive (BEAKER) (test code = 2585) Sand Mixer Machine ID - DBHIGH SENSITIVITY TROPONIN [id number] 16:57:21 Test Item Value Reference Range Interpretation Comments HIGH SENSITIVITY 6 pg/ml See_Comment [Automated message] TROPONIN I (test code = The system which [id number]) generated this result transmitted ref erence range: <=35. Th e reference range was not used to interpr et this result as normal/abnormal . Sand Mixer Machine ID - ERNESTINA GThe [facility] PRACTITIONER STAT High Sensitivity Troponin-I results should be used in conjunction with other diagnostic information such as ECG, clinical observations and information, and patient symptoms to aid in the diagnosis of [place].SPIN/CONCENTRATION [id number] 11:38:19 Test Item Value Reference Range Interpretation Comments CONCENTRATION CHARGED (BEAKER) (test Done code = 5256) SPIN/CONCENTRATION [id number] 11:37:06 Test Item Value Reference Range Interpretation Comments CONCENTRATION CHARGED (BEAKER) (test Done code = 2657) BASIC METABOLIC [id number] 04:15:19 Test Item Value Reference Range Interpretation [...] S NOT APPLICABLE FOR DIALYSIS PATIEN TS. Sand Mixer Machine ID - ERNESTINA [id number] 04:12:12 Test Item Value Reference Range Interpretation Comments PHOSPHORUS (BEAKER) (test code = 2.8 mg/dL 2.3-4.7 604) Sand Mixer Machine ID - ERNESTINA [id number] 04:12:11 Test Item Value Reference Range Interpretation Comments MAGNESIUM (BEAKER) (test code = 2.1 mg/dL 1.6-2.6 627) Sand Mixer Machine ID - ERNESTINA GCBC W/PLT COUNT & AUTO [id number] 03:59:11 Test Item Value Reference Range Interpretation [...] (test code = 2801) CT, BRAIN, WITHOUT [id number] 18:25:00Unlisted Reason for Exam - Click Yes and Enter Reason Below->YesUnlisted Reason for Exam->postoperative [facility] 1940 Sex: MFINAL REPORT CT, BRAIN, WITHOUT CONTRAST CLINICAL INDICATION: Unlisted Reason forExampostoperative COMPARISON: March 14, 2021 TECHNIQUE: Noncontrast axial CT imaging of the brainand skull. DOSE REDUCTION: Dose modulation, iterative reconstruction, and/or weight-based adjustmentof the mA/kV was utilized to reduce the radiation dose to as low as reasonably achievable. FINDINGS:Status post right frontoparietal craniectomy for drainage [...] right frontal parietal craniectomy for drainage of extra-axial collection with subdural drain in place. If there is persistent clinical concern for intracranial pathology, MR examination is recommended for further characterization. Signed: Shanelle Chapa MDReport Verified Date/Time: 03/31/2021 18:25:50 SARS-COV2/RT-PCR ([facility])2021-03-31 12:51:25 Test Item Value Reference Range Interpretation Comments SARS-COV2/RT-PCR Negative Negative The SARS-Co V-2 target (test code = nucleic acids a re not 3814638) detected in thi s specimen. Negative result [...] This SARS CoV-2 test is a rapid, real-time RT-PC R test intended for th e qualitative detection of nu cleic acid from SARS-CoV-2 in a nasopharyngeal swab specimen collected from individuals suspected of CO VID-19 by [facility]. This test has been authorized by FDA under an EUA for use by authorized laboratories. This test is only authorized for the duration of the declaration that circumstances exist justifying the authorization of emergency use of in vitro diagnostic tests for detection and/or diagnosis of COVID-19 under Section 564(b)(1) of the Federal Food, Drug and Cosmetic Act, 21 U.S.C. 360bbb-3(b)(1), unless the authorization is terminated or revoked sooner. Fact Sheet for Healthcare Providers: https://www.[employer]arijuanaStocksIndex.com.[employer] m/Documents/Xpert%20Xpress%20SARS%20CoV-2/Fact%20Sheets/302-3802%54BZMJ-ZGH-1%20 HEALTHCARE%20PROVIDERS%20FACT%20SHEET.pdf Fact Sheet for Healthcare Patients: https://www.bizk.it/Documents/Xpert%20Xp ress%20SARS%20CoV-2/Fact%20Sheets/302-3801%15RKSL-UKD-1%20PATIENT%20FACT%20SHEET .pdfMR, BRAIN, [id number] 10:26:00Unlisted Reason for Exam - Click Yes and Enter Reason Below->Yes Unlisted Reason for Exam->[facility]et[facility] 1940 Sex: MFINAL REPORT MRI Brain with and without contrast Clinical History: Unlisted Reasonfor ExamICH etiology Technique: MRI of the brain utilizing axial T1, T2, FLAIR, GRE, DWI, sagittal T1; and postgadolinium axial, sagittal, and coronal T1-weighted images. Comparisons: CT 03/14/2021 Findings: The right cerebral convexity subdural collection has decreased in maximal thickness measuring 1.0 cm (previously 2.8 cm), but now extends over a greater percentage of the cerebral hemisphere. There is irregular pachymeningeal leptomeningeal enhancement throughout the subdural collection. The subdural contents demonstrate restricted diffusion. Overall, the appearance is concerning for a subacutedural empyema. There is sulcal FLAIR signal abnormality in the adjacent compressed sulci suggesting meningitis. Mass effect on the right cerebral hemisphere is again seen with leftward midline shift of6 mm grossly unchanged. Compression of the right lateral ventricle with asymmetric dilatation of theleft temporal horn is also unchanged allowing for differences in technique. There is no evidence foracute infarct or parenchymal hemorrhage. The major intracranial flow-voids appear patent. IMPRESSION: The right cerebral convexity subdural collection demonstrates restricted diffusion and irregular enhancement suggestive of a subdural empyema. Right cerebral leptomeningeal enhancement and sulcal FLAIR signal abnormality suggesting meningitis. The findings were discussed with Dr. KERVIN BRADLEY MD at the time of dictation. Signed: Chris Leblanc MDReport Verified Date/Time: 03/31/2021 10:26:28 Reading Location: [address] Neuro Reading Room [id number] 01:30:19 Test Item Value Reference Range Interpretation Comments PARTIAL THROMBOPLASTIN TIME 44.4 seconds 22.5-36.0 H (BEAKER) (test code = 760) PROTHROMBIN [id number] 01:29:16 Test Item Value Reference Range Interpretation Comments PROTIME (BEAKER) 16.2 seconds 11.9-14.2 H (test code = 759) INR (BEAKER) (test 1.32 See_Comment [Automat ed message] code = 370) The system [employer]The[employer] generated this result transmitted ref erence range: <=5.90. The reference range was not used to int erpret this result as normal/abnormal . RECOMMENDED COUMADIN/WARFARIN INR THERAPY RANGESSTANDARD DOSE: 2.0 - 3.0 Includes: PROPHYLAXIS for venous thrombosis, systemic embolization; TREATMENT for venous thrombosis and/or pulmonary embolus.HIGH RISK: Target INR is 2.5-3.5 for patients with mechanical heart valves.COMPREHENSIVE METABOLIC PANEL 2021-03-31 01:28:15 Test Item Value Reference Range Interpretation [...] S NOT APPLICABLE FOR DIALYSIS PATIEN TS. Sand Mixer Machine ID - LELIA LC-REACTIVE [id number] 01:28:15 Test Item Value Reference Range Interpretation Comments C-REACTIVE PROTEIN (BEAKER) (test 11.47 mg/dL 0.00-0.50 H code = 676) Sand Mixer Machine ID - LELIA LCBC W/PLT COUNT & AUTO [id number] 01:08:56 Test Item Value Reference Range Interpretation [...] (BEAKER) (test code = 2801) BASIC METABOLIC [id number] 05:07:26 Test Item Value Reference Range Interpretation [...] S NOT APPLICABLE FOR DIALYSIS PATIEN TS. Sand Mixer Machine ID - DBPOCT-GLUCOSE [id number] 11:13:30 Test Item Value Reference Range Interpretation Comments POC-GLUCOSE METER 152 mg/dL 70-110 H : TESTED A T [facility] 6720 (BEAKER) (test code [facility], = 1538) 80[address]: Sand Mixer Machine/Techni mei ID = [id number] for Stri [employer]kland (contract), Syt ezra CT, BRAIN, WITHOUT [id number] 10:46:00Unlisted Reason for Exam - Click Yes and Enter Reason Below->No [facility] : 1940 Sex: MFINAL REPORT CT, BRAIN, WITHOUT CONTRAST CLINICAL INDICATION: Subdural hemorrhage,follow-up COMPARISON: February 25, 2021 TECHNIQUE: Noncontrast axial [...] 5 mm left orbit midline shift is unchanged given diff erences in angulation and technique. No hydrocephalus. Unchanged mild effacement of the right lateral ventricle. Orbits are within normal limits. No obstructive paranasal sinus disease. IMPRESSION: Status post merlin hole drainage of extra- axial hematoma. Residual mixed density hematoma with some hyperdense blood products layering within the dependent portions, suggestive of recent interval rebleeding.Consequent 5 mm leftward midline shift is unchanged given differences in angulation and technique. If there is persistent clinical concern for intracranial pathology, MR examination is recommended for further characterization. Signed: Shanelle Chapaort Verified Date/Time: 03/14/2021 10:46:46 SARS-COV2/RT-PCR ([facility])2021-03-14 07:03:48 Test Item Value Reference Range Interpretation Comments SARS-COV2/RT-PCR Negative Negative The SARS-Co V-2 target (test code = nucleic acids a re not 5918118) detected in thi s specimen. Negative result [...] This SARS CoV-2 test is a rapid, real-time RT-PC R test intended for th e qualitative detection [...] Food, Drug and Cosmetic Act, 21 U.S.C. 360bbb-3(b)(1), unless the authorization is terminated or revoked sooner. Fact Sheet for Healthcare Providers: https://www.[employer] m/Documents/Xpert%20Xpress%20SARS%20CoV-2/Fact%20Sheets/302-4232%03KLQU-PIY-2%20 HEALTHCARE%20PROVIDERS%20FACT%20SHEET.pdf Fact Sheet for Healthcare Patients: https://www.bizk.it/Documents/Xpert%20Xp ress%20SARS%20CoV-2/Fact%20Sheets/370-3801%98HGDD-YEN-2%20PATIENT%20FACT%20SHEET .pdfPROTHROMBIN TIME/[id number] 06:29:21 Test Item Value Reference Range Interpretation Comments PROTIME (BEAKER) 13.7 seconds 11.9-14.2 (test code = 759) INR (BEAKER) (test 1.07 See_Comment [Automat ed message] code = 370) The system FindTheBest generated this result transmitted ref erence range: <=5.90. The reference range was not used to int erpret this result as normal/abnormal . RECOMMENDED COUMADIN/WARFARIN INR THERAPY RANGESSTANDARD DOSE: 2.0 - 3.0 Includes: PROPHYLAXIS for venous thrombosis, systemic embolization; TREATMENT for venous thrombosis and/or pulmonary embolus.HIGH RISK: Target INR is 2.5-3.5 for patients with mechanical heart valves.POCT-GLUCOSE [id number] 06:04:12 Test Item Value Reference Range Interpretation Comments POC-GLUCOSE METER 112 mg/dL 70-110 H : TESTED A T [facility] 6720 (BEAKER) (test code = [facility]ERT [place] [facility], 1538) [address]: Sand Mixer Machine/Techni mei ID = [id number] for Ijeoma Pisano THROMBOELASTOGRAPH (TEG)2021-03-14 05:32:14 Test [...] (test 0.0 % 0.0-5.0 code = 1414) [id number] 04:42:48 Test Item Value Reference Range Interpretation Comments PHOSPHORUS (BEAKER) 3.5 mg/dL 2.3-4.7 Specimen slightly (test code = 604) hemolyzed Sand Mixer Machine ID - DBBASIC METABOLIC [id number] 04:42:48 Test Item Value Reference Range Interpretation [...] S NOT APPLICABLE FOR DIALYSIS PATIEN TS. Sand Mixer Machine ID - [id number] 04:42:47 Test Item Value Reference Range Interpretation Comments MAGNESIUM (BEAKER) 2.0 mg/dL 1.6-2.6 Specimen slightly (test code = 627) hemolyzed Sand Mixer Machine ID - DBCBC W/PLT COUNT & AUTO [id number] 04:13:13 Test Item Value Reference Range Interpretation [...] = 2801) RAD, CHEST, 1 VIEW, NON [id number] 04:08:00Reason for exam:->COVIDShould this be performed at the bedside?->Yes [facility] 1940 Sex: MFINAL REPORT Chest one view. Clinical history: COVID Comparison: Chest radiograph 02/24/2021. Technique: A single frontal view of the chest was obtained. Findings:The patient is statuspost median sternotomy.The cardiac silhouette is mildly enlarged, which may be due to AP technique. The aorta is tortuous and [...] Mary Musa Verified Date/Time: 03/14/2021 04:08:19 POCT-GLUCOSE [id number] 12:58:28 Test Item Value Reference Range Interpretation Comments POC-GLUCOSE METER 130 mg/dL 70-110 H : TESTED A T [facility] 6720 (BEAKER) (test code = [facility], 1538) [address]: Sand Mixer Machine/Techni mei ID = [id number] for ALDO PASTRANA HEMOGLOBIN [id number] 08:47:58 Test Item Value Reference Range Interpretation Comments HEMOGLOBIN A1C (BEAKER) (test code = 6.4 % 4.3-6.1 H 368) BASIC METABOLIC [id number] 06:00:48 Test Item Value Reference Range Interpretation [...] S NOT APPLICABLE FOR DIALYSIS PATIEN TS. Sand Mixer Machine ID - DBCBC W/PLT COUNT & AUTO [id number] 04:01:55 Test Item Value Reference Range Interpretation [...] PERCENT (BEAKER) (test code = 2801) POCT-GLUCOSE [id number] 18:14:42 Test Item Value Reference Range Interpretation Comments POC-GLUCOSE METER 134 mg/dL 70-110 H : TESTED A T [facility] 67[facility] (test code = [facility] [place] [facility], 1538) 978[address]: Sand Mixer Machine/Techni mei ID = [id number] for GAVIN WALKER POCT-GLUCOSE [id number] 12:13:11 Test Item Value Reference Range Interpretation Comments POC-GLUCOSE METER 126 mg/dL 70-110 H : Notified RN/MD: (GEOVANY) (test code = TESTED AT [facility] 6720 1538) [facility], [address]: Sand Mixer Machine/Techni mei ID = [id number] for YASMANY PIPER MIGUELANGELRAJIV CT, BRAIN, WITHOUT [id number] 06:54:00Unlisted Reason for Exam - Click Yes and Enter Reason Below->No [facility] 1940 Sex: MFINAL REPORT CT, BRAIN, WITHOUT CONTRAST CLINICAL INDICATION: Hemorrhage due to internal orthopedic prosthetic devices, implant or graft COMPARISON: 7 hours prior TECHNIQUE: Noncontrast axial CT imaging of the brain and skull. DOSE REDUCTION: Dose modulation, iterative reconstruction, and/or weight-based adjustment of the mA/kV was utilized to reduce the radiation dose to as low as r easonably achievable. IMPRESSION: Interval decompression of subdural collection with decreased volume (18 mm in greatest transverse dimension compared to 30 mm prior). Hyperattenuating material suggesting interval rebleeding but without significant volume expansion. Moderate pneumocephalus is present.A subgaleal drain is been placed. Midline shift at the level of the foramen of Monro has improved to5 mm leftward compared to 11 mm prior. No new ischemic or hemorrhagic parenchymal injury is identified. Signed: JR Cifuentes Robert MDReport Verified Date/Time: 02/26/2021 06:54:39 Reading Location: [facility] Radiology Reading Room POCT-GLUCOSE [id number] 06:34:34 Test Item Value Reference Range Interpretation Comments POC-GLUCOSE METER 130 mg/dL 70-110 H : [facility] ([facility]ER[facility] (test code = ROBERT [place], 1538) [address]: Sand Mixer Machine/Techni mei ID = [id number] for DILMA BLANCO [id number] 04:09:05 Test Item Value Reference Range Interpretation Comments PHOSPHORUS (BEAKER) (test code = 3.3 mg/dL 2.3-4.7 604) Sand Mixer Machine ID - ERNESTINA GBASIC METABOLIC [id number] 04:09:04 Test Item Value Reference Range Interpretation [...] S NOT APPLICABLE FOR DIALYSIS PATIEN TS. Sand Mixer Machine ID - ERNESTINA [id number] 04:09:04 Test Item Value Reference Range Interpretation Comments MAGNESIUM (BEAKER) (test code = 2.3 mg/dL 1.6-2.6 627) Sand Mixer Machine ID - ERNESTINA GCBC W/PLT COUNT & AUTO [id number] 03:44:36 Test Item Value Reference Range Interpretation [...] PERCENT (BEAKER) (test code = 2801) POCT-GLUCOSE [id number] 00:06:22 Test Item Value Reference Range Interpretation Comments POC-GLUCOSE METER 146 mg/dL 70-110 H : TESTED A T [facility] 6720 ([facility]) (test [facility] = [facility] [facility], 1538) [address]: Sand Mixer Machine/Techni mei ID = [id number] for ZACH BLANCOSON POCT-GLUCOSE [id number] 12:07:35 Test Item Value Reference Range Interpretation Comments POC-GLUCOSE METER 126 mg/dL 70-110 H : Notified RN/MD: ([facility]) (test code = TESTED AT [facility] 6720 1538) [facility], [address]: Sand Mixer Machine/Techni mei ID = [id number] for ERICA TIAN SARS-COV2/RT-PCR ([facility])2021-02-25 07:50:40 Test Item Value Reference Range Interpretation Comments SARS-COV2/RT-PCR Negative Negative The SARS-Co V-2 target (test code = nucleic acids a re not [id number]) detected in thi s specimen. Negative result [...] This SARS CoV-2 test is a rapid, real-time RT-PC R test intended for th e qualitative detection [...] Food, Drug and Cosmetic Act, 21 U.S.C. 360bbb-3(b)(1), unless the authorization is terminated or revoked sooner. Fact Sheet for Healthcare Providers: https://www.EventCombo m/Documents/Xpert%20Xpress%20SARS%20CoV-2/Fact%20Sheets/302-3802%67QFDS-OAP-4%20 HEALTHCARE%20PROVIDERS%20FACT%20SHEET.pdf Fact Sheet for Healthcare Patients: https://www.bizk.it/Documents/Xpert%20Xp ress%20SARS%20CoV-2/Fact%20Sheets/302-3801%25XOQK-WKG-6%20PATIENT%20FACT%20SHEET .pdfCT, BRAIN, WITHOUT [id number] 07:28:00Neurosurgical evaluation preoperativelyReason for exam:->Intracranial hemorrhage [facility] M[facility]NICA KUONASIMA : 1940 Sex: MFINAL REPORT CT, BRAIN, WITHOUT CONTRAST CLINICAL INDICATION: Unlisted Reason for ExamIntracranial hemorrhage COMPARISON: None currently available TECHNIQUE: Noncontrast axial CT imaging of the brain and skull. DOSE REDUCTION: Dose modulation, iterative reconstruction, and/or weight-based adjustment of the mA/kV was utilized to reduce the radiation dose to as low as reasonably achiev able. FINDINGS:Large epidural collection with layering hematocrit level measuring up to 3 cm in greatest dimension laterally. Mass effect deforms the right frontal lobe, creating 11 mm leftward midlineshift at the level of foramen of Monro and subfalcine herniation of the right cingulate gyrus area remaining brain parenchyma is unremarkable. Osseous structures are intact. Intracranial hemorrhagic findings were relayed to neurology ICU staff at 0728 hours on February 25, 2021. Signed: JR Cifuentes Robert MDReport Verified Date/Time: 02/25/2021 07:28:24 Reading Location: [facility] Radiology Reading Room POCT- GLUCOSE [id number] 06:01:17 Test Item Value Reference Range Interpretation Comments POC-GLUCOSE METER 102 mg/dL 70-110 : TESTED A T [facility] 6720 (BEAKER) (test code [facility], = 1538) [address]: Sand Mixer Machine/Techni mei ID = [id number] for Pa Naranjo [id number] 04:07:22 Test Item Value Reference Range Interpretation Comments MAGNESIUM (BEAKER) (test code = 2.1 mg/dL 1.6-2.6 627) Sand Mixer Machine ID - ISAK [id number] 04:07:22 Test Item Value Reference Range Interpretation Comments PHOSPHORUS (BEAKER) (test code = 2.9 mg/dL 2.3-4.7 604) Sand Mixer Machine ID - ISAK MBASIC METABOLIC [id number] 04:07:21 Test Item Value Reference Range Interpretation [...] S NOT APPLICABLE FOR DIALYSIS PATIEN TS. Sand Mixer Machine ID - ISAK [facility] (HEMOGRAM ONLY)2021-02-25 03:47:50 Test Item Value Reference [...] = 413) RAD, CHEST, 1 VIEW, NON [id number] 02:13:00Reason for exam:- >weaknessShould this be performed at the bedside?->Yes [facility] 1940 Sex: MFINAL REPORT History: Weakness. Comparison: 09/04/2018 Findings: A single view of the chest is submitted. The cardiac silhouette is within normal limits for size. There is atherosclerotic calcification of the tortuous aorta. Sternotomy wires are in place. There is hazy opacification of the left hemithorax, which appears similar to previous and suggests some combination of atelectasisand scarring. Pneumonitis should be excluded clinically. There is no pneumothorax, evidence of overtpulmonary edema or acute bony abnormality. Signed: Sebastian [facility] Verified Date/Time: 02/25/2021 02:13:07 POCT- GLUCOSE [id number] 01:15:35 Test Item Value Reference Range Interpretation Comments POC-GLUCOSE METER 108 mg/dL 70-110 : TESTED A T [facility] 6720 ([place]) (test code [facility], = 1538) [address]: Sand Mixer Machine/Techni mei ID = [id number] for Pa Naranjo [id number] 22:37:00 Test Item Value Reference Range Interpretation Comments PROCALCITONIN (ELEONORAAKER) (test code = < ng/mL <0.05 3036) SEPSIS RISK (ng/mL)Low: 0.05-0.50Intermediate: 0.51-2.00High: >=2.01RAPID DRUG SCREEN, [id number] 22:15:49 Test Item Value Reference Range Interpretation [...] ng/mLOpiate 300 ng/mLMethadone 300 ng/mLAmphetamine/ 1000 ng/mL MethamphetamineThisassay provides an unconfirmed qualitative test result for the clinical management of patients in emergency situations. Chain of custody not maintained. Some yhyh-urx-eoryqne medications, as well as adulterants, may cause inaccurate results. Clinical correlation should be applied. A more comprehensive drug screen or confirmation of a detected drug may be performed upon request.Sand Mixer Machine ID - BSHEPATIC FUNCTION [id number] 22:14:58 Test Item Value Reference Range Interpretation [...] (test code = 13 U/L 6-55 347) Sand Mixer Machine ID - [id number] 22:08:14 Test Item Value Reference Range Interpretation Comments PARTIAL THROMBOPLASTIN TIME 40.8 seconds 22.5-36.0 H (BEAKER) (test code = 760) PROTHROMBIN [id number] 22:07:16 Test Item Value Reference Range Interpretation Comments PROTIME (BEAKER) 15.3 seconds 11.9-14.2 H (test code = 759) INR (BEAKER) (test 1.23 See_Comment [Automat ed message] code = 370) The system FindTheBest generated this result transmitted ref erence range: <=5.90. The reference range was not used to int erpret this result as normal/abnormal . RECOMMENDED COUMADIN/WARFARIN INR THERAPY RANGESSTANDARD DOSE: 2.0 - 3.0 Includes: PROPHYLAXIS for venous thrombosis, systemic embolization; TREATMENT for venous thrombosis and/or pulmonary embolus.HIGH RISK: Target INR is 2.5-3.5 for patients with mechanical heart valves.LACTIC ACID, [id number] 22:04:34 Test Item Value Reference Range Interpretation Comments LACTATE BLOOD ARTERIAL (2) 1.1 mmol/L 0.5-2.2 (BEAKER) (test code = 2874) Sand Mixer Machine ID - BSURINALYSIS [id number] 21:54:39 Test Item Value Reference Range Interpretation Comments RBC UA (BEAKER) (test code = 519) 5 /HPF WBC UA (BEAKER) (test code = 520) < /HPF BACTERIA (BEAKER) (test code = 517) None Seen CRYSTALS, URINE (BEAKER) (test code None Seen = 1521) Sand Mixer Machine ID - techURINALYSIS WITH MICROSCOPIC IF [id number] 21:52:51 Test Item Value Reference Range Interpretation [...] = 463) SOURCE(BEAKER) (test code = 2795) Sand Mixer Machine ID - [auto]CT, CTA [id number] 17:40:00Reason for Exam:->aaa Addendum BeginsREPORT STATUS:A Addendum: Several small cysts are seen in the left lung base. No free intraperitoneal air. I otherwise agree with the previously described non vascular findings. End of addendum. Signed: Armando Proctor MDReport Verified Date/Time: 03/15/2019 17:40:34 Reading Location: [facility] Reading RoomAddendum EndsFINAL REPORT CT angiography of the abdominal aorta and pelvic arteries, 15 March 2019 INDICATION: This is a 78 year old male with diagnosis of abdominal aortic aneurysm presents for assessment. 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 Patient gave a history of contrast reaction and was premedicated with the appropriate medication. IV Benadryl was also given before contrast administrationand patient tolerated the procedure well. TECHNIQUE: Spiral acquisition before and during intravenous contrast administration using a Elena multidetector CT scanner. Images were obtained before and during the dynamic passage of intravenous contrast material. Multi- planar 3-D volume-rendering reconstruction was performed using an independent workstation interactively by the interpreting physician aswell as the 3-D specialist for optimal visualisation of the abdominal aorta, pelvic arteries, and its proximal branches. Please refer to the contrast sheet scanned in the [facility] system for the amount androute of contrast given. This exam was performed [...] this level is patent however, it is n onobstructive. The right renal artery origin measure 13.2 [...] iliac artery. The length of the left commoniliac artery is approximately 7 cm, and patient access representative dimension is approximately 2.2 x 2.2 [...] 6 to 7 mm in diameter, bilaterally. NON- VASCULAR: The lung bases are unremarkable. Some dependent changes are seen. In the abdomen, the liver and spleen appears unremarkable. The liver edge is smooth.Small hypodensities are seen with no enhancement after contrast administration representing liver cysts. The adrenal glands are not enlarged. Patient is post cholecystectomy. The pancreas appears unremarkable. No acute renal pathology is seen and no hydronephrosis or perirenal fluid collection is identified. A renal cyst is identified the posterior aspect of the left kidney, at image 61, measures 2.7cm in diameter. In the right kidney, cortical scarring is identified in the lower pole, that could represent reduction in flow to the lower branch of the right renal artery as described above. Bowel isnot well assessed by CT angiography as enteric contrast is not given. No obvious bowel dilation is identified. Bilateral fat-containing inguinal hernia is noted. The prostate is prominent. The bladder is unremarkable. No free air free flow seen abdomen pelvis and no significant retroperitoneal adenopathy is identified. In the bony windows, no acute bony pathology is identified. Some degenerative leblanc es is noted. Screws are identified at L3/L4/L5 [...] dictated regarding the non-vascular findings by the Screen Printing Paster Radiologist. Signed: Bill Fountain MDReport Verified Date/Time: 03/15/2019 11:50:43 [id number] 10:21:00 Test Item Value Reference Range Interpretation Comments POC-CREATININE 0.9 mg/dL 0.6-1.3 TESTED AT [facility] 6720 ([facility]) (test [place] code = 1859) [address] POC-EGFR ([facility]) 82 mL/min/1.73M2 (test code = 1860) TISSUE [id number] 17:04:00Surgical Pathology Report Case: [id number] Authorizing Provider: Danial Smith, Collected: 10/01/2018 0904 Ordering Location: [facility] Received: 10/01/2018 1008 PERIOPERATIVE SERVICES Pathologist: Zeferino Warner MD Specimen: Plaque, RIGHT CAROTID PLAQUE/ ENDARTERECTOMY ARTERY, RIGHT CAROTID, ENDARTERECTOMY:CALCIFIC ATHEROSCLEROTIC PLAQUE Signing Pathologist Direct Phone Line: [phone]; [phone]. Right carotid plaque/endarterectomyThe specimen is received in formalin and consists of a portion of cylindrical calcified tissue measuring 4.5 x 0.9 x 0.9 cm. Laborer sections are in one cassette for dec alcification. CB/plPerformedPLATELET AGGREGATION: FUNCTION [id number] 14:42:00 Test Item Value Reference Range Interpretation Comments WEAK ADP 56 % 60-91 L RESULT([facility]) (test code = 2135) PLATELET FUNCTION 50-59% indicates mild SCREEN INTERP platelet dysfunction ([facility]) (test code = 2173) [id number] Genevieve Lin MD ([facility]) (test code = (electronic signature) 2622) PLATELET COUNT AGG 159 K/CU MM 150-450 ([facility]) (test code = 2656) Platelet Function Screen results may be falsely low with platelet counts<100,000/cu mm.for patients on clopidogrel in past two weeksPOTASSIUM- STAT [id number] 12:04:00 Test Item Value Reference Range Interpretation Comments POTASSIUM (BEAKER) (test code = 4.0 meq/L 3.6-5.5 379) GLUCOSE-STAT [id number] 12:04:00 Test Item Value Reference Range Interpretation Comments GLUCOSE RANDOM (BEAKER) (test code 139 mg/dL 70-110 H = 652) HGB/HCT (H&H) - STAT [id number] 12:04:00 Test Item Value Reference Range Interpretation Comments HEMOGLOBIN (BEAKER) (test code = 10.5 g/dL 13.0-16.8 L 410) HEMATOCRIT (BEAKER) (test code = 31.0 % 40.0-50.0 L 411) [id number] 06:25:00 Test Item Value Reference Range Interpretation [...] is 2.5-3.5 for patients wiht mechanical heart valves.POCT-GLUCOSE [id number] 06:02:00 Test Item Value Reference Range Interpretation Comments POC-GLUCOSE METER 111 mg/dL 70-110 H TESTED AT [facility] 6720 ([facility]) (test code = [place] 1538) [address] [id number] 12:11:00 Test Item Value Reference Range Interpretation Comments PARTIAL THROMBOPLASTIN TIME 67.7 seconds 22.5-36.0 H (BEAKER) (test code = 760) PROTHROMBIN [id number] 12:09:00 Test Item Value Reference Range Interpretation [...] is 2.5-3.5 for patients wiht mechanical heart valves.BASIC METABOLIC [id number] 12:09:00 Test Item Value Reference Range Interpretation [...] PATIEN TS. CBC W/PLT COUNT & AUTO [id number] 11:53:00 Test Item Value Reference Range Interpretation [...] PERCENT (BEAKER) (test code = 2801) TISSUE [id number] 14:34:00Surgical Pathology Report Case: [id number] Authorizing Provider: Danial Smith, Collected:09/12/2018 0910 Ordering Location: [facility] Received: 09/12/2018 1105 PERIOPERATIVE SERVICES Pathologist: Zeferino Warner MD Specimen: Plaque, LEFT CAROTID ARTERY PLAQUE ARTERY, LEFT CAROTID, ENDARTERECTOMY:CALCIFIC ATHEROSCLEROTIC PLAQUE WITH INTRAPLAQUE HEMORRHAGE Signing Pathologist Direct Phone Line: [phone] signed by Zeferino Warner MD on 09/18/2018 at 2:34 [id number]; [id number] and postop diagnosis: left carotid stenosisLeft carotid artery plaqueReceived in saline labeled with the patient's name, accession number and "plaque" is a bifurcated, previously incised portion of yellow plaque measuring 3.2 x 1.0 x 0.5 cm. The specimen is serially sectioned to reveal focalareas of calcification measuring up to 0.3 cm in thickness. There are also focal areas of hemorrhageand necrosis. Laborer sections are submitted in A1, following decalcification. CG/pl PerformedTSH/FREE T4 IF [id number] 05:37:00 Test Item Value Reference Range Interpretation Comments THYROID STIMULATING HORMONE 0.76 uIU/mL 0.35-4.94 (BEAKER) (test code = 772) TROPONIN [id number] 05:01:00 Test Item Value Reference Range Interpretation [...] failure, acidosis, acute neurological disease, and persistent tachyarrhythmia.[id number] 04:53:00 Test Item Value Reference Range Interpretation Comments MAGNESIUM (BEAKER) (test code = 2.0 mg/dL 1.6-2.6 627) BASIC METABOLIC [id number] 04:53:00 Test Item Value Reference Range Interpretation [...] S NOT APPLICABLE FOR DIALYSIS PATIEN TS. [id number] 04:53:00 Test Item Value Reference Range Interpretation [...] is 2.5-3.5 for patients wiht mechanical heart valves.CBC (HEMOGRAM [...] (test code = 413) CT, BRAIN, WITHOUT [id number] 18:45:00FINAL REPORT CT, BRAIN, WITHOUT CONTRAST CLINICAL [...] the intracranial internal carotid and vertebral arteries. Opa cification of the right maxillary sinus with consequent depression of the right orbital floor and increased right intraorbital volume. IMPRESSION: No large territorial infarct identified No intracranial hemorrhage Slightly increased intraorbital volume on the right due to an opacified and atelectatic right maxillary sinus, compatible with silent sinus syndrome. If there is persistent clinical concernfor intracranial pathology, MR examination is recommended for further characterization. Signed: Shanelle Chapa MDReport Verified Date/Time: 09/13/2018 18:45:50 Reading Location: [address] Neuro Reading Room ONIN [id number] 16:04:00 Test Item Value Reference Range Interpretation [...] acidosis, acute neurological disease, and persistent tachyarrhythmia.TROPONIN [id number] 10:03:00 Test Item Value Reference Range Interpretation [...] WBC 0-0 (BEAKER) (test code = 413) [id number] 06:09:00 Test Item Value Reference Range Interpretation Comments MAGNESIUM (BEAKER) (test code = 1.7 mg/dL 1.6-2.6 627) BASIC METABOLIC [id number] 06:09:00 Test Item Value Reference Range Interpretation [...] NOT APPLICABLE FOR DIALYSIS PATIEN TS. TROPONIN [id number] 06:02:00 Test Item Value Reference Range Interpretation [...] failure, acidosis, acute neurological disease, and persistent tachyarrhythmia.PT/[id number] 05:45:00 Test Item Value Reference Range Interpretation [...] is 2.5-3.5 for patients wiht mechanical heart valves.PLATELET AGGREGATION: FUNCTION SCREEN 2018-09-12 15:58:00 Test Item Value Reference Range Interpretation Comments WEAK ADP 87 % 60-91 RESULT(BEAKER) (test code = 2135) PLATELET FUNCTION 60-100% indicates SCREEN INTERP (BEAKER) normal platelet (test code = 2173) function [id number] Genevieve Lin MD (BEAKER) (test code = (electronic signature) 5142) PLATELET COUNT AGG 174 K/CU MM 150-450 (BEAKER) (test code = 2656) Platelet Function Screen results may be falsely low with platelet counts<100,000/cu mm.for patients on clopidogrel in past two weeksfor patients on clopidogrel in past two weeksfor patients on clopidogrel in past two weeksBASIC METABOLIC [id number] 10:47:00 Test Item Value Reference Range Interpretation [...] NOT APPLICABLE FOR DIALYSIS PATIEN TS. PROTHROMBIN [id number] 10:27:00 Test Item Value Reference Range Interpretation [...] is 2.5-3.5 for patients wiht mechanical heart valves.CBC W/PLT COUNT & AUTO [id number] 10:19:00 Test Item Value Reference Range Interpretation [...] (BEAKER) (test code = 2801) BLOOD GAS, [id number] 10:15:00 Test Item Value Reference Range Interpretation [...] code = 381) 141 meq/L 135-148 POTASSIUM-STAT [id number] 08:48:00 Test Item Value Reference Range Interpretation Comments POTASSIUM (BEAKER) (test code = 3.7 meq/L 3.6-5.5 379) BLOOD GAS, [id number] 08:48:00 Test Item Value Reference Range Interpretation [...] (test code = 1819) 100.0 % GLUCOSE-STAT [id number] 08:48:00 Test Item Value Reference Range Interpretation Comments GLUCOSE RANDOM (BEAKER) (test code 117 mg/dL 70-110 H = 652) HGB/HCT (H&H) - STAT [id number] 08:48:00 Test Item Value Reference Range Interpretation Comments HEMOGLOBIN (BEAKER) (test code = 11.1 g/dL 13.0-16.8 L 410) HEMATOCRIT (BEAKER) (test code = 33.0 % 40.0-50.0 L 411) CALCIUM, [id number] 08:48:00 Test Item Value Reference Range Interpretation Comments CALCIUM IONIZED (BEAKER) (test 1.11 mmol/L 1.12-1.27 L code = 698) PH, BLOOD (BEAKER) (test code = 7.40 1810) BASIC METABOLIC [id number] 06:59:00 Test Item Value Reference Range Interpretation [...] S NOT APPLICABLE FOR DIALYSIS PATIEN TS. [id number] 06:46:00 Test Item Value Reference Range Interpretation [...] is 2.5-3.5 for patients wiht mechanical heart valves.PROTHROMBIN [id number] 06:45:00 Test Item Value Reference Range Interpretation Comments PROTIME (BEAKER) (test code = 13.9 seconds 11.9-14.2 759) INR (BEAKER) (test code = 370) 1.1 <=5.9 Effective 08/15/2018: PT Reference Range ChangeNew: 11.9-14.2 Previous: 11.7- 14.7RECOMMENDED COUMADIN/WARFARIN INR THERAPY RANGESSTANDARD DOSE: 2.0-3.0 Includes: PROPHYLAXIS for venous thrombosis, systemic embolization; TREATMENT for venous thrombosis and/or pulmonary embolus.HIGH RISK: Target INR is 2.5-3.5 for patients wiht mechanical heart valves.POCT-GLUCOSE [id number] 06:24:00 Test Item Value Reference Range Interpretation Comments POC-GLUCOSE METER 117 mg/dL 70-110 H TESTED AT [facility] 6720 (BEAKER) (test code = [place] 1538) [address] RAD, CHEST, 2 [id number] 13:32:00Reason for exam:->preop Should this be performed [...] MDReport Verified Date/Time: 09/04/2018 13:32:54 Reading Location: [address] Consult Reading Room CBC W/PLT COUNT & AUTO [id number] 12:57:00 Test Item Value Reference Range Interpretation [...] % 0-1 PERCENT (BEAKER) (test code = 4274)
[2021-10-20 20:47] VITALS: BMI 24.2
[2021-10-20] MEDS ORDERED: SENOSIDES 8.6 MG TAB PO PRN (21:00)
[2021-10-20] MEDS ORDERED: ACETAMINOPHEN 650MG/RECT SUPP PR PRN (21:04)
[2021-10-20] MEDS ORDERED: ALBUTEROL 2.5 MG/3 ML NEB SOL NEB PRN (21:06)
[2021-10-20] MEDS ORDERED: IPRATROPIUM BROM 0.5MG/2.5ML NEB PRN (21:06)
[2021-10-20] MEDS ORDERED: ONDANSETRON 4 MG (ODT) TAB PO PRN (21:07)
[2021-10-20] MEDS: DIVALPROEX DR 250 MG TAB PO SCH (21:19)
[2021-10-20] MEDS: MELATONIN 5 MG TABLET PO SCH (21:20)
[2021-10-20] MEDS: LACTULOSE 20 GM/30 ML UCUP PO SCH (21:20)
[2021-10-20] MEDS: MONTELUKAST 10 MG TAB PO SCH (21:20)
[2021-10-20] MEDS: BUSPIRONE HCL 5 MG TABLET PO SCH (21:24)
[2021-10-20 21:59] LABS: Specific Gravity 1.015 (1.005-1.030); Urine Bilirubin Negative (Negative); Urine Blood 1+ (Negative); Urine Clarity Clear (Clear); Urine Color Yellow (Yellow); Urine Glucose Negative (Negative); Urine Protein 1+ (Negative); Urine Urobilinogen 0.2 mg/dL (0.2-1.0)
[2021-10-20 22:15] LABS: Urine Bacteria None Seen /HPF (<20)
[2021-10-20 22:16] LABS: Urine Mucus Slight /HPF (None Seen)
[2021-10-21 04:15] LABS: Hematocrit 29.6 % (39.6-49.0); Lymphocytes % 14.4 % (15.3-44.8); MCV 87.9 fL (80-100); MPV 8.4 fL (7.6-11.3); RBC Red Blood Cell Count 3.37 M/uL (4.33-5.43)
[2021-10-21 04:33] LABS: Albumin 3.1 g/dL (3.4-5.0); Magnesium 1.8 mg/dL (1.8-2.4); Potassium 3.4 mmol/L (3.5-5.1); Prealbumin 11.8 mg/dL (20-40)
[2021-10-21] MEDS ORDERED: SOTALOL 120 MG TABLET PO SCH (08:00)
[2021-10-21] MEDS ORDERED: TAMSULOSIN 0.4 MG SR CAP PO SCH (08:00)
[2021-10-21] MEDS ORDERED: SOTALOL HCL 80 MG TAB PO SCH (08:00)
[2021-10-21] MEDS: HYDROCODONE/APAP 5/325 MG TAB PO PRN ×2 (09:01→20:15)
[2021-10-21] MEDS: CETIRIZINE HCL 5 MG TABLET PO SCH (09:02)
[2021-10-21] MEDS: DIVALPROEX DR 250 MG TAB PO SCH ×2 (09:02→18:46)
[2021-10-21] MEDS: ATORVASTATIN 80 MG TAB PO SCH (09:02)
[2021-10-21] MEDS: LACTOBACILLUS/ACIDOPHILUS TAB PO SCH ×2 (09:02→18:43)
[2021-10-21] MEDS: SENOSIDES 8.6 MG TAB PO SCH ×2 (09:02→18:46)
[2021-10-21] MEDS: AMLODIPINE 10 MG TAB PO SCH (09:03)
[2021-10-21] MEDS: ZINC SULFATE 220 MG CAP PO SCH (09:03)
[2021-10-21] MEDS: TAMSULOSIN 0.4 MG SR CAP PO SCH (09:03)
[2021-10-21] MEDS: ENOXAPARIN 40 MG/0.4 ML SQ SCH (09:04)
[2021-10-21] MEDS: POLYETHYL GLY 3350 17 GM/DOSE PO SCH (09:04)
[2021-10-21] MEDS: LACTULOSE 20 GM/30 ML UCUP PO SCH ×3 (09:04→18:42)
[2021-10-21] MEDS: BACITRACIN OINTMENT 14 GM TUBE TOP SCH ×2 (09:21→18:42)
[2021-10-21] MEDS: BUSPIRONE HCL 5 MG TABLET PO SCH ×2 (09:50→18:47)
--- NOTE | 2021-10-21 09:58 | P.RH.PN ---
Estimated Length of Stay: 11 Expected Discharge Date: 10/30/21 Discharge Disposition Plan: Home Family Support: Yes Nursing Home Goal: Mobility, Transfers, Self Care Vital Signs: Last Vital Signs Temp 98.8 F 10/21/21 06:55 Pulse 93 H 10/21/21 09:03 Resp 18 10/21/21 09:01 BP 174/79 H 10/21/21 09:03 Pulse Ox 93 10/21/21 09:01 Laboratory: Laboratory Last Values WBC 6.9 K/uL (4.3-10.9) D 10/21/21 04:04 RBC 3.37 M/uL (4.33-5.43) L 10/21/21 04:04 Hgb 9.9 g/dL (13.6-17.9) L 10/21/21 04:04 Hct 29.6 % (39.6-49.0) L 10/21/21 04:04 MCV 87.9 fL (80-100) 10/21/21 04:04 MCH 29.3 pg (27.0-35.0) 10/21/21 04:04 MCHC 33.3 g/dL (32.0-36.0) 10/21/21 04:04 RDW 15.4 % (12.1-15.2) H 10/21/21 04:04 Plt Count 113 K/uL (152-406) L 10/21/21 04:04 MPV 8.4 fL (7.6-11.3) 10/21/21 04:04 Neutrophils % 68.6 % (41.7-73.7) 10/21/21 04:04 Lymphocytes % 14.4 % (15.3-44.8) L 10/21/21 04:04 Monocytes % 14.7 % (3.3-12.3) H 10/21/21 04:04 Eosinophils % 1.9 % (0-4.4) 10/21/21 04:04 Basophils % 0.4 % (0-1.3) 10/21/21 04:04 Absolute Neutrophils 4.8 K/uL (1.8-8.0) 10/21/21 04:04 Absolute Lymphocytes 1.0 K/uL (0.7-4.9) 10/21/21 04:04 Absolute Monocytes 1.0 K/uL (0.1-1.3) 10/21/21 04:04 Absolute Eosinophils 0.1 K/uL (0-0.5) 10/21/21 04:04 Absolute Basophils 0.0 K/uL (0-0.5) 10/21/21 04:04 Sodium 139 mmol/L (136-145) 10/21/21 04:04 Potassium 3.4 mmol/L (3.5-5.1) L 10/21/21 04:04 Chloride 107 mmol/L (98-107) 10/21/21 04:04 Carbon Dioxide 27 mmol/L (21-32) 10/21/21 04:04 Anion Gap 8.4 mEq/L (5.0-15.0) 10/21/21 04:04 BUN 6 mg/dL (7-18) L 10/21/21 04:04 Creatinine 0.68 mg/dL (0.55-1.3) 10/21/21 04:04 Est GFR (CKD-EPI) 93 ml/min (=/>90) 10/21/21 04:04 Glucose 133 mg/dL (74-106) H 10/21/21 04:04 Calcium 8.6 mg/dL (8.5-10.1) 10/21/21 04:04 Magnesium 1.8 mg/dL (1.8-2.4) D 10/21/21 04:04 Albumin 3.1 g/dL (3.4-5.0) L 10/21/21 04:04 Prealbumin 11.8 mg/dL (20-40) L 10/21/21 04:04 Urine Color Yellow (Yellow) 10/20/21 21:19 Urine Clarity Clear (Clear) 10/20/21 21:19 Urine pH 6.0 (5.0-7.0) 10/20/21 21:19 Ur Specific [place] 1.015 (1.005-1.030) 10/20/21 21:19 Glucose (UA)(Auto) Negative (Negative) 10/20/21 21:19 Urine Ketones 1+ (Negative) H 10/20/21 21:19 Urine Blood 1+ (Negative) H 10/20/21 21:19 Urine Nitrite Negative (Negative) 10/20/21 21:19 Urine Bilirubin Negative (Negative) 10/20/21 21:19 Urine Urobilinogen 0.2 mg/dL (0.2-1.0) 10/20/21 21:19 Ur Leukocyte Esterase Negative (Negative) 10/20/21 21:19 Urine RBC 5-10 /HPF (None Seen) H 10/20/21 21:19 Urine Red Cell Clumps Cancelled 10/20/21 20:55 Urine WBC <5 /HPF (<5) 10/20/21 21:19 Urine WBC Clumps Cancelled 10/20/21 20:55 Ur Squamous Epith Cells <5 /HPF (None Seen) 10/20/21 21:19 U Non-Squamous Epi Cells Cancelled 10/20/21 20:55 Ur Transition Epith Cell Cancelled 10/20/21 20:55 Ur Renal Epithelial Cell Cancelled 10/20/21 20:55 Calcium Carbonate Cryst Cancelled 10/20/21 20:55 Calcium Oxalate Crystal Cancelled 10/20/21 20:55 Leucine Crystals Cancelled 10/20/21 20:55 Cystine Crystals Cancelled 10/20/21 20:55 Uric Acid Crystals Cancelled 10/20/21 20:55 Triple Phos Crystals Cancelled 10/20/21 20:55 Tyrosine Crystals Cancelled 10/20/21 20:55 Unidentified Crystals Cancelled 10/20/21 20:55 Amorphous Crystals Cancelled 10/20/21 20:55 Urine Bacteria None seen /HPF (<20) 10/20/21 21:19 Hyaline Casts Cancelled 10/20/21 20:55 Granular Casts Cancelled 10/20/21 20:55 Waxy Casts Cancelled 10/20/21 20:55 RBC Casts Cancelled 10/20/21 20:55 WBC Casts Cancelled 10/20/21 20:55 Urine Mucus Slight /HPF (None Seen) 10/20/21 21:19 Urine Trichomonas Cancelled 10/20/21 20:55 Ur Yeast w Hyphae Cancelled 10/20/21 20:55 Urine Yeast (Budding) Cancelled 10/20/21 20:55 Urine Sperm Cancelled 10/20/21 20:55 Ur Oval Fat Bodies Cancelled 10/20/21 20:55 Urine Total Protein 1+ (Negative) H 10/20/21 21:19 Urine Ascorbic Acid Cancelled 10/20/21 20:55 Urine Fat Cancelled 10/20/21 20:55 SARS-CoV-2 Rap RNA(RT-PCR) Negative (NEGATIVE) 10/20/21 21:12 Weight: 164 lb Physician Update: Supervison with occupational therapy. He is very impulsive. He will be evaluated by physical therapy in the afternoon. Summary: Patient's care plan and fpc goals have been reviewed and revised as necessary. Please see the Rehabilitation Signature page for all necessary signatures.
--- NOTE | 2021-10-21 13:35 | R.HP ---
HISTORY AND PHYSICAL FACILITY: [facility] ENCOUNTER DATE AND TIME: 10/21/2021 13:24 (CDT) MR#: [id number] NAME REMA KUO ADDRESS: [address] [place] [address] CITY: [place]IP [id number] PHONE: DATE OF : 1940 AGE: 81 SSN# [id number] GENDER: Male DEXTERITY Unknown dexterity MARITAL STATUS PRE-HOSPITAL LIVING SETTING 01 - Home (private home/apt. board/care, assisted living, residential, transitional living) PRE-HOSPITAL LIVING WITH Family/Relatives ENCOUNTER PHYSICIAN: Dr. Jax Cameron M.D. REFERRING DOCTOR: anthony Pena DATE OF ADMISSION: 10/20/2021 20:30 (CDT) REFERRING FACILITY [facility] HOME TYPE AND DETAILS: Type of home: single family house # of levels in the residence: 1 # of steps within the residence: 0 # of steps to enter the residence: 0 ONSET DATE: 10/18/2021 PRIMARY DIAGNOSIS-RELATED SURGERIES: Emergency Stroke(Bilateral) - performed by Anthony Pena on 10/18/2021 SECONDARY/COMORBID DIAGNOSES (TIERED): - N/A Encounter for surgical aftercare following surgery on the nervous system (Z48.811) HISTORY OF PRESENT ILLNESS (HPI): On 10/18/2021 he was admitted to [facility] and underwent emergency surgery for 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 On 10/18/2021 Pt. presented to [facility] with sudden onset of bilateral weakness. Pt. is a 81 yo male. Pre-morbidly, Pt. was independent/mod-I in Locomotion and Self-Care; and he had good Endurance, Sphin cter Control, and Safety Awareness. Currently, he has deficits of Locomotion, Safety Awareness, Balance, Transfers Control, Self-Care, an d Endurance. Pt. is now referred to [facility] for acute in-patient rehabilitation in order to maximize patient's functional independence in activities of daily living, strength, ROM, and mobi lity. Patient has realistic goal of being discharged at assistance level 6-Odell to reside at Home with Fam lucretia/Relatives. 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) Age-related cataract (H25) Emphysema (J43) PAST SURGICAL HISTORY: Back Surgery Carotid endarterectomy Craniotomy Right George hole frontal craniotomy Gallbladder removal Heart Surgery TKA SOCIAL HISTORY: - Home Living Family/Relatives REVIEW OF SYSTEMS: - Gen No Chills Fatigue No Fever - Eyes No Double Vision No itchiness - ENMT Difficulty Swallowing - CVS No Chest Discomfort No Chest Pain No Fatigue No Weight Gain - Resp No Cough Shortness of Breath - GI Continent No Abdominal Pain No Constipation No Diarrhea - Continent No Kidney Pain No Painful Urination No Urinary Urgency - MSK No Joint Pain No Muscle Cramps Stiffness - Skin No Itching No Rash No Suspicious Lesions - Neuro Coordination Difficulty Difficulty with Concentration No Memory Loss No Seizures Weakness - Psych No Anxiety No Depression No HIV Exposure No Persistent Infections No Seasonal Allergies - Endo No Cold/Heat Intolerance No Excessive Hunger No Excessive Thirst No Excessive Urination PHYSICAL EXAM - Gen Alert and awake Lying in bed No apparent distress Oriented to: person, time, and place - Skin No breakdown Long healing surgical wound around the left head. - Eyes No abnormalities - ENMT No abnormalities - Neck No abnormalities - CVS RRR - Chest Clear - Resp Clear to auscultation - Abd Soft - GI Non distended Deferred - No abnormalities - Ext No significant edema - MSK 4/5 weakness in both lower extremities. - Neuro No focal deficits - Psych Mild anxiety. VITAL SIGNS Temperature: 97.8 F SBP/DBP: 174/79 Pulse: 93 Resp: 16 NURSING: - Shower allowing shower - Bladder care per protocol - Skin care per protocol PRECAUTIONS: - Weight Bearing Precaution WBAT both LE - Fall Precaution Bed alarm TABS alarm Wheel chair alarm - Skin Breakdown Risk Routine Wound care due to restricted mobility and age - DVT Risk due to restricted mobility ACTIVITIES OOB only with supervision QI SCORES: - Self-Care A. Eating 06-Independent B. Oral hygiene 04-Supervision or touching assistance C. Toileting hygiene 03-Partial/moderate assistance E. Shower/bathe self 03-Partial/moderate assistance F. Upper body dressing 04-Supervision or touching assistance G. Lower body dressing 03-Partial/moderate assistance H. Putting on/taking off footwear 03-Partial/moderate assistance - Mobility A. Roll left and right 04-Supervision or touching assistance B. Sit to lying 04-Supervision or touching assistance C. Lying to sitting on side of bed 04-Supervision or touching assistance D. Sit to stand 04-Supervision or touching assistance E. Chair/eyd-bw-vonaq transfer 04-Supervision or touching assistance F. Toilet transfer 04-Supervision or touching assistance G. Car transfer 09-Not applicable I. Walk 10 feet 04-Supervision or touching assistance J. Walk 50 feet with two turns 04-Supervision or touching assistance K. Walk 150 feet 88-Not attempted due to medical condition or safety concerns L. Walking 10 feet on uneven surfaces 88-Not attempted due to medical condition or safety concerns M. 1 step (curb) 88-Not attempted due to medical condition or safety concerns N. 4 steps 88-Not attempted due to medical condition or safety concerns O. 12 steps 88-Not attempted due to medical condition or safety concerns P. Picking up object 88-Not attempted due to medical condition or safety concerns R. Wheel 50 feet with two turns 09-Not applicable S. Wheel 150 feet 09-Not applicable - Bladder and Bowel Bladder continence 2-Incontinent less than daily Bowel continence 1-Occasionally incontinent - Endurance Fair - Balance Poor - Safety Awareness Poor CURRENT FUNC. 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 p resented to [facility] with sudden onset of bilateral weakness.Pt. is a 81 yo his[place] c male.Pre-morbidly, Pt. was independent/mod-I in Locomotion and Self-Care; and he had good Endurance , Sphincter Control, and Safety Awareness.Currently, he has deficits of Locomotion, Safety Awareness, Balance, Transfers Control, Self-Care, and Endurance.Pt. is now referred to [facility] for acute in-patient rehabilitation in order to maximize patient's functional independence in activities of daily living, strength, ROM, and mobility.- Rehab Goal Patient has realistic goal of being discharged at assistance level 6-Odell to reside at Home with Fam lucretia/Relatives. for Dementia, TBI, Stroke, or others - Physical Therapy Gait dysfunction - to improve, our physical therapists will perform initial evaluation of pt's status upon admission and devise an individualized program for Gait Training, and Wheel Chair mobility Inability to transfer - to improve, our physical therapists will perform initial evaluation of pt's s tatus upon admission and devise an individualized program for Bed mobility Need for home safety evaluation - to improve, our physical therapists will perform initial evaluation of pt's status upon admission and devise an individualized program for Home Evaluation Need in caregiver upon discharge - to improve, our physical therapists will perform initial evaluatio n of pt's status upon admission and devise an individualized program for Caregiver Training New precaution - to improve, our physical therapists will perform initial evaluation of pt's status u jah admission and devise an individualized program for Patient precaution education Edema - to improve, our physical therapists will perform initial evaluation of pt's status upon admi ssion and devise an individualized program for Elevation Training, and Lymphedema Therapy Having wound - to improve, our physical therapists will perform initial evaluation of pt's status up on admission and devise an individualized program for Wound Care Poor balance - to improve, our physical therapists will perform initial evaluation of pt's status upo n admission and devise an individualized program for Balance Training Poor endurance - to improve, our physical therapists will perform initial evaluation of pt's status u jah admission and devise an individualized program for Endurance Training Weakness - to improve, our physical therapists will perform initial evaluation of pt's status upon ad mission and devise an individualized program for Aquatic Therapy, Neuromuscular Reeducation, and Stre ngthening Achieving independence - to improve, our physical therapists will perform initial evaluation of pt's status upon admission and devise an individualized program for Community Reintegration Activities - Occupational Therapy ADL deficits - to improve, our occupation therapists will perform initial evaluation of pt's status u jah admission and devise an individualized program for Bathing, Bed mobility, Community Reintegration , Cooking, Dressing, Eating, Fine Motor Skills, Grooming, Homemaking, Kitchen Mobility, Laundry, Lore ent Education, Safety Awareness, Splinting - Positioning, Transfers(Toilet, Tub, Shower), and Wheel C hair Management Need for occasional caregiver - to improve, our occupation therapists will perform initial evaluation of pt's s tatus upon admission and devise an individualized program for Caregiver Training Weakness - to improve, our occupation therapists will perform initial evaluation of pt's status upon admission and devise an individualized program for Aquatic Therapy, Balance, Endurance, UE ROM, and U E strengthening MEDICAL PLAN: - Diet Type Start Regular - Diet - Liquid Texture Start Regular - Tube Feed Start N/A - Bladder care per protocol - DVT Risk due to restricted mobility - Skin Breakdown Risk Routine Wound care due to restricted mobility and age - Weight Bearing Precaution WBAT both LE - Fall Precaution Bed alarm TABS alarm Wheel chair alarm - Skin care per protocol - Other See attached MAR (Medication Administration Record) - Diet - Solid Texture Regular - Shower shower DISCHARGE PLAN: - Estimated Length of Stay (days) 17. - Consensus on plan Discharge plan has been discussed with primary caregiver. Patient/Family is in agreement with the nikolas n. Primary caregiver is in agreement with the plan. - Patient/Family Goals Return home independently. - Planned Living Setting Upon Discharge Home, to live with Family/Relatives. Transitional Living. SIGNATURE PANEL: (CDT)
--- NOTE | 2021-10-21 13:37 | PAPE ---
POST ADMISSION PHYSICIAN EVALUATION PATIENT: [facility] MR# [id number] REFERRING DOCTOR vero Pena EVALUATION DATE AND TIME 10/21/2021 13:34 (CDT) NAME REMA KUO DATE OF 1940 AGE 81 PHONE N# [id number] GENDER male EVALUATING PHYSICIAN Dr. Jax Cameron M.D. ADMISSION DIAGNOSIS: Nontraumatic chronic subdural hemorrhage (I62.03) ONSET DATE 10/18/2021 SECONDARY/COMORBID DIAGNOSES TIERED: - N/A Encounter for surgical aftercare following surgery on the nervous system (Z48.811) POST-ADMISSION FUNCTIONAL/MEDICAL STATUS: - Bladder Same accident frequency: 7-Ind - No accidents in the past 7 days - Bowel Same accident frequency: 7-Ind - No accidents in the past 7 days - Walking Same score based on distance walked: 0(N/A) Same score based on distance walked: 2(50-149ft) - Wheelchair Same score based on distance traveled: 0(N/A) STATUS CHANGE EVALUATION: No change in Functional or Medical Status is identified compared with Pre-Admission screening. PATIENT NEEDS CLOSE MEDICAL SUPERVISION BY A REHABILITATION PHYSICIAN FOR: Coordination of Treatment Team Medical and Co-Morbidity Management Post-Op Complications Wound Care Bowel and Bladder Management Pain Management PATIENT REQUIRES 24X7 REHAB NURSING FOR MEDICAL AND FUNCTIONAL MGT. OF THE FOLLOWING DEFICITS: Patient requires 24x7 Rehabilitation Nursing for: Pain Issues, Identifying and preventing risk factor s, Monitoring and reporting current medical conditions, Assisting with ambulation and transfer, Linden ting with all ADL-s, Teaching patients about disease process and medications, Family teaching, Provid ing safe environment, Bowel and Bladder Issues, Skin Integrity, and Medication Management PATIENT REQUIRES INTENSIVE, COORDINATED INTERDISCIPLINARY APPROACH TO REHAB: Patient needs Dietary and Nutrition Services for: Adequate Nutrition, Nutritional Supplements, and Nu tritional Education Patient needs Heat And Vent Aircraft Mechanic and/or Case Management for: Discharge Planning, Arranging Home Equipmen t or Services, and Family Interventions LIST OF IDENTIFIED AND POTENTIAL PROBLEMS: Alteration in leisure activities Bladder, Incontinence Bowel, Incontinence Falls, Actual or Potential Infection, Actual or Potential Mobility Impaired Pain, Alteration in Comfort Self Care Deficit Skin Integrity, Actual or Potential Urinary Tract Infection (UTI), Actual or Potential RISK FOR COMPLICATIONS - DVT Active and Passive ROM exercises. Administer medications per MD order. Assist patient with frequent p osition changes. Elevate BLE. - CHF Assess/ Monitor pt for s/s cardiac/respiratory distress. - Skin Breakdown Encourage ambulation as tolerated. Repositioning q 2 hours. Use of pillows or foam wedges while in be d. - Seizure Identify risk factors. Provide safety measures. Monitor for headaches. Administer prescribed medicati ons and supplemental O2. - Pain Administer prescribed pain medication as needed. Anticipate the need for pain medication for optimal pain managment. Assess pt for pain and Administer prescribed pain medication as needed. - Stroke Assess/ Monitor and maintain patient pain level. Assess/ Monitor patient blood pressure. - Falls Maintain call light within patient reach for easy access to nursing assistance. Provide assistance ge tting out of bed and with ambulation. Provide assistive devices. INTERVENTIONS - Late effects of Stroke Assess pt neuro status q4h. Provide aggressive PT, OT and Speech to improve pt level of function. Pro vide safety measures. Assess/ Monitor the patient for any signs of seizure activity. Assess/ Monitor pt degree on consciences regularly. Assess/ Monitor for s/s of ICP. - Wound care Assess/Monitor pt of s/s of infection. Assess/Monitor TRANG drain. Administer wound care per MD orders. HOB elevation. Administer prescribed pain medications and monitor for effectivness. - CHF - Hypertension Assess/ Monitor patient B/P and treat with prescribed medications. Increase physical activity. - Dementia Administer prescribed medications. Frequently orient client to reality and surroundings. Close observ ation of pt. PATIENT COULD BE AT RISK FOR COMPLICATIONS FROM ADVERSE MEDICAL CONDITIONS DUE TO HIS/HER COMORBIDITI ES AND THE RIGORS OF THE INTENSIVE REHABILLITATION PROGRAM. METHODS OR INTERVENTIONS TO AVOID COMPLIC ATIONS INCLUDE: - Bleeding Assess lab values and manage abnormalities. Nursing to teach precautions for anti-coagulation therapy . Stroke patients assessed for lethargy or change in status. Wound to be assessed every shift. - Infection Clinical staff to assess and manage the signs and symptoms of infection including fever, redness, war mth, etc. - Urinary Tract Infection - Aspiration Clinical staff will assess and manage coughing, drooling, congestion. - Falls Patient will be evaluated for Fall Precautions and will be placed on Fall Precautions as indicated pe r protocol. - Skin Breakdown Nursing will assess skin daily using assessment tool and will place on Skin Breakdown Precautions as indicated per protocol. - Pain Clinical staff may employ non-medication methods such as massage, distraction, decrease stimulus, etc . as needed. Clinical staff will assess patient's pain level every shift per protocol to assess and e nsure pain management effectiveness. Medications will be given and the pain level re-assessed. PRELIMINARY PLAN OF CARE: - Physical Therapy Patient needs Physical Therapy for a daily minimum of 1.5 hours at least 5 out of 7 days, to improve: Mobility, Strengthening, Transfers, Stretching, ROM, Endurance, Ability to manage stairs, Gait, and Balance. - Speech Therapy Patient needs Speech Therapy for a daily minimum of 0.5 hours at least 5 out of 7 days, to improve: S wallowing, Cognition, Language Skills, and Compensatory Strategies. - Rehabilitation Nursing Patient requires 24x7 Rehabilitation Nursing for: Pain Issues, Identifying and preventing risk factor s, Monitoring and reporting current medical conditions, Assisting with ambulation and transfer, Linden ting with all ADL-s, Teaching patients about disease process and medications, Family teaching, Provid ing safe environment, Bowel and Bladder Issues, Skin Integrity, and Medication Management. Patient needs Heat And Vent Aircraft Mechanic and/or Case Management for: Discharge Planning, Arranging Home Equipmen t or Services, and Family Interventions. - Dietary and Nutrition Services Patient needs Dietary and Nutrition Services for: Adequate Nutrition, Nutritional Supplements, and Nu tritional Education. - Occupational Therapy Patient needs Occupational Therapy for a daily minimum of 1.5 hours at least 5 out of 7 days, to impr ove Activities of Daily Living, including: Eating, Grooming, Bathing, Dressing, Toileting, Toilet Tra nsfers, Community Reintegration, Higher functional activities, Adaptive Equipment, Splinting, Househo ld Tasks, and Other activities as determined. QI SCORES: - Self-Care A. Eating 06-Independent B. Oral hygiene 04-Supervision or touching assistance C. Toileting hygiene 03-Partial/moderate assistance E. Shower/bathe self 03-Partial/moderate assistance F. Upper body dressing 04-Supervision or touching assistance G. Lower body dressing 03-Partial/moderate assistance H. Putting on/taking off footwear 03-Partial/moderate assistance - Mobility A. Roll left and right 04-Supervision or touching assistance B. Sit to lying 04-Supervision or touching assistance C. Lying to sitting on side of bed 04-Supervision or touching assistance D. Sit to stand 04-Supervision or touching assistance E. Chair/[id number] transfer 04-Supervision or touching assistance F. Toilet transfer 04-Supervision or touching assistance G. Car transfer 09-Not applicable I. Walk 10 feet 04-Supervision or touching assistance J. Walk 50 feet with two turns 04-Supervision or touching assistance K. Walk 150 feet 88-Not attempted due to medical condition or safety concerns L. Walking 10 feet on uneven surfaces 88-Not attempted due to medical condition or safety concerns M. 1 step (curb) 88-Not attempted due to medical condition or safety concerns N. 4 steps 88-Not attempted due to medical condition or safety concerns O. 12 steps 88-Not attempted due to medical condition or safety concerns P. Picking up object 88-Not attempted due to medical condition or safety concerns R. Wheel 50 feet with two turns 09-Not applicable S. Wheel 150 feet 09-Not applicable - Bladder and Bowel Bladder continence 2-Incontinent less than daily Bowel continence 1-Occasionally incontinent - Endurance Fair - Balance Poor - Safety Awareness Poor POTENTIAL FUNCTIONAL GOALS FOR PATIENT TO ACHIEVE BY DISCHARGE: - Safety Precaution Patient will remain free from falls or injury at time of discharge. - Bed Mobility Patient will perform bed mobility at 4-Shannan level of assistance. - Transfers Patient will complete transfers from bed to chair at 4-Shannan level of assistance. - Mobility Patient will ambulate 150 ft with 4-Shannan level of assistance with RW. PATIENT REHAB POTENTIAL Vinayak KUO is able and expected to receive 3 hours of individualized therapy daily on at least 5 of e very 7 days Vinayak KUO's prognosis for significant practical improvement within a reasonable period of time appea rs Good Expected level of measurable improvement will be of a practical value to Vinayak KUO's functional capa city or adaptations to impairments Has a viable Discharge Plan Medically appropriate; condition is sufficiently stable to participate in intensive rehab program DISCHARGE PLAN: - Estimated Length of Stay (days) 17. - Consensus on plan Discharge plan has been discussed with primary caregiver. Patient/Family is in agreement with the nikolas n. Primary caregiver is in agreement with the plan. - Patient/Family Goals Return home independently. - Planned Living Setting Upon Discharge Home, to live with Family/Relatives. Transitional Living. CONCLUSION ON REHABILITATION NECESSITY: I have evaluated patient's pre-admission functional status and, comparing it to the patient's post-ad mission functional status now, I conclude that the pre-admission assessment was accurate. Patient's c ondition on admission supports the medical necessity of admission to IRF. It is safe to proceed with patient's therapy program. SIGNATURE PANEL: (CDT)
[2021-10-21] MEDS: LORAZEPAM 0.5 MG TABLET PO PRN (18:46)
[2021-10-21] MEDS: MELATONIN 5 MG TABLET PO SCH (18:46)
[2021-10-21] MEDS: MONTELUKAST 10 MG TAB PO SCH (18:47)
[2021-10-21] MEDS: SOTALOL HCL 80 MG TAB PO SCH (19:32)
[2021-10-22] MEDS: POLYETHYL GLY 3350 17 GM/DOSE PO SCH (08:00)
[2021-10-22] MEDS: ATORVASTATIN 80 MG TAB PO SCH ×2 (08:00→20:20)
[2021-10-22] MEDS: ENOXAPARIN 40 MG/0.4 ML SQ SCH (08:20)
[2021-10-22] MEDS: LACTULOSE 20 GM/30 ML UCUP PO SCH ×5 (09:00→21:00)
[2021-10-22] MEDS: SOTALOL HCL 80 MG TAB PO SCH ×2 (09:25→20:20)
[2021-10-22] MEDS: BUSPIRONE HCL 5 MG TABLET PO SCH ×2 (09:25→20:20)
[2021-10-22] MEDS: SENOSIDES 8.6 MG TAB PO SCH ×2 (09:26→20:18)
[2021-10-22] MEDS: BACITRACIN OINTMENT 14 GM TUBE TOP SCH ×2 (09:26→20:17)
[2021-10-22] MEDS: CETIRIZINE HCL 5 MG TABLET PO SCH (09:26)
[2021-10-22] MEDS: DIVALPROEX DR 250 MG TAB PO SCH ×2 (09:27→20:20)
[2021-10-22] MEDS: TAMSULOSIN 0.4 MG SR CAP PO SCH ×2 (09:27→20:19)
[2021-10-22] MEDS: LACTOBACILLUS/ACIDOPHILUS TAB PO SCH ×2 (09:27→20:19)
[2021-10-22] MEDS: ZINC SULFATE 220 MG CAP PO SCH (09:31)
[2021-10-22] MEDS: AMLODIPINE 10 MG TAB PO SCH (11:04)
[2021-10-22] MEDS ORDERED: SENOSIDES 8.6 MG TAB PO PRN (14:47)
[2021-10-22] MEDS ORDERED: LACTULOSE 20 GM/30 ML UCUP PO PRN (14:48)
[2021-10-22] MEDS: HYDROCODONE/APAP 5/325 MG TAB PO PRN (17:00)
[2021-10-22] MEDS: MONTELUKAST 10 MG TAB PO SCH (20:20)
[2021-10-22] MEDS: MELATONIN 5 MG TABLET PO SCH (20:21)
[2021-10-23] MEDS: ENOXAPARIN 40 MG/0.4 ML SQ SCH (07:18)
[2021-10-23] MEDS: ACETAMINOPHEN 325 MG TABLET PO PRN (08:18)
[2021-10-23] MEDS: BACITRACIN OINTMENT 14 GM TUBE TOP SCH ×2 (08:22→19:25)
[2021-10-23] MEDS: TAMSULOSIN 0.4 MG SR CAP PO SCH ×2 (08:23→19:25)
[2021-10-23] MEDS: CETIRIZINE HCL 5 MG TABLET PO SCH (08:23)
[2021-10-23] MEDS: SOTALOL HCL 80 MG TAB PO SCH ×2 (08:23→19:27)
[2021-10-23] MEDS: BUSPIRONE HCL 5 MG TABLET PO SCH ×2 (08:24→19:26)
[2021-10-23] MEDS: ZINC SULFATE 220 MG CAP PO SCH (08:24)
[2021-10-23] MEDS: LACTOBACILLUS/ACIDOPHILUS TAB PO SCH ×2 (08:24→19:25)
[2021-10-23] MEDS: AMLODIPINE 10 MG TAB PO SCH (08:24)
[2021-10-23] MEDS: SENOSIDES 8.6 MG TAB PO SCH ×2 (08:24→19:26)
[2021-10-23] MEDS: DIVALPROEX DR 250 MG TAB PO SCH ×2 (08:24→19:25)
[2021-10-23] MEDS: POLYETHYL GLY 3350 17 GM/DOSE PO SCH (08:25)
[2021-10-23] MEDS: LACTULOSE 20 GM/30 ML UCUP PO SCH ×3 (08:26→19:25)
[2021-10-23] MEDS: MONTELUKAST 10 MG TAB PO SCH (19:26)
[2021-10-23] MEDS: MELATONIN 5 MG TABLET PO SCH (19:26)
[2021-10-23] MEDS: ATORVASTATIN 80 MG TAB PO SCH (19:26)
[2021-10-24] MEDS: ENOXAPARIN 40 MG/0.4 ML SQ SCH (07:19)
[2021-10-24] MEDS: POLYETHYL GLY 3350 17 GM/DOSE PO SCH (08:00)
[2021-10-24] MEDS: BACITRACIN OINTMENT 14 GM TUBE TOP SCH ×2 (08:20→19:41)
[2021-10-24] MEDS: ZINC SULFATE 220 MG CAP PO SCH (08:20)
[2021-10-24] MEDS: LACTOBACILLUS/ACIDOPHILUS TAB PO SCH ×2 (08:20→19:42)
[2021-10-24] MEDS: FE SULF/FA/VIT B COMP & C TAB PO SCH (08:20)
[2021-10-24] MEDS: FERROUS SULFATE 325 MG TAB PO SCH (08:20)
[2021-10-24] MEDS: CETIRIZINE HCL 5 MG TABLET PO SCH (08:21)
[2021-10-24] MEDS: SENOSIDES 8.6 MG TAB PO SCH ×2 (08:21→19:42)
[2021-10-24] MEDS: AMLODIPINE 10 MG TAB PO SCH (08:21)
[2021-10-24] MEDS: SOTALOL HCL 80 MG TAB PO SCH ×2 (08:21→19:43)
[2021-10-24] MEDS: DIVALPROEX DR 250 MG TAB PO SCH ×2 (08:21→19:42)
[2021-10-24] MEDS: BUSPIRONE HCL 5 MG TABLET PO SCH ×2 (08:22→19:42)
[2021-10-24] MEDS: TAMSULOSIN 0.4 MG SR CAP PO SCH ×2 (08:23→19:42)
[2021-10-24] MEDS: LACTULOSE 20 GM/30 ML UCUP PO SCH ×3 (09:00→19:43)
[2021-10-24] MEDS: MELATONIN 5 MG TABLET PO SCH (19:41)
[2021-10-24] MEDS: LORAZEPAM 0.5 MG TABLET PO PRN (19:42)
[2021-10-24] MEDS: MONTELUKAST 10 MG TAB PO SCH (19:42)
[2021-10-24] MEDS: ATORVASTATIN 80 MG TAB PO SCH (19:43)
[2021-10-25] MEDS: ENOXAPARIN 40 MG/0.4 ML SQ SCH (08:05)
[2021-10-25] MEDS: BUSPIRONE HCL 5 MG TABLET PO SCH ×2 (08:05→19:26)
[2021-10-25] MEDS: POLYETHYL GLY 3350 17 GM/DOSE PO SCH (08:05)
[2021-10-25] MEDS: TAMSULOSIN 0.4 MG SR CAP PO SCH ×2 (08:06→20:43)
[2021-10-25] MEDS: CETIRIZINE HCL 5 MG TABLET PO SCH (08:06)
[2021-10-25] MEDS: FE SULF/FA/VIT B COMP & C TAB PO SCH (08:06)
[2021-10-25] MEDS: SOTALOL HCL 80 MG TAB PO SCH ×2 (08:07→19:25)
[2021-10-25] MEDS: SENOSIDES 8.6 MG TAB PO SCH ×2 (08:07→19:27)
[2021-10-25] MEDS: FERROUS SULFATE 325 MG TAB PO SCH (08:07)
[2021-10-25] MEDS: LACTOBACILLUS/ACIDOPHILUS TAB PO SCH ×2 (08:07→19:27)
[2021-10-25] MEDS: DIVALPROEX DR 250 MG TAB PO SCH ×2 (08:07→19:27)
[2021-10-25] MEDS: ZINC SULFATE 220 MG CAP PO SCH (08:08)
[2021-10-25] MEDS: AMLODIPINE 10 MG TAB PO SCH (08:08)
[2021-10-25] MEDS: BACITRACIN OINTMENT 14 GM TUBE TOP SCH ×2 (08:08→19:27)
[2021-10-25] MEDS: LACTULOSE 20 GM/30 ML UCUP PO SCH ×3 (08:12→19:25)
--- NOTE | 2021-10-25 16:57 | R.PN ---
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 Pt denied any depression. VITAL SIGNS Temperature: 97.8 F SBP/DBP: 174/79 Pulse: 93 Resp: 16 MEDICATION ALLERGIES: Codeine Geodon Iodine Morphine Quetiapine Fumarate Ziprasidone Hydrochloride ENVIRONMENTAL ALLERGIES: Kiwi Extract Strawberries - Substance Allergies None Known - Other Allergies None Known NURSING: - Shower allowing shower - Bladder care per protocol - Skin care per protocol PRECAUTIONS: - Weight Bearing Precaution WBAT both LE - Fall Precaution Bed alarm TABS alarm Wheel chair alarm - Skin Breakdown Risk Routine Wound care due to restricted mobility and age - DVT Risk due to restricted mobility ACTIVITIES OOB only with supervision THERAPIES: - Dietary and Nutrition Adequate Nutrition. Nutritional Education. Nutritional Supplements. - Occupational Therapy Cognitive Retraining. Patient needs Occupational Therapy for a daily minimum of 1.25 hours at least 5 out of 7 days, to improve Activities of Daily Living, including: Eating, Grooming, Bathing, Dressing , Toileting, Toilet Transfers, Community Reintegration, Higher functional activities, Adaptive Equipm ent, Splinting, Household Tasks, and Other activities as determined. Visual Perceptual Training. - Speech Therapy Cognitive Training. Expressive Language Skills. Memory Strategies. Patient needs Speech Therapy for a daily minimum of .5 hours at least 5 out of 7 days, to improve: Swallowing, Cognition, Language Skil ls, and Compensatory Strategies. Receptive Language Skills. Speech Intelligibility Training. - Physical Therapy Patient needs Physical Therapy for a daily minimum of 1.25 hours at least 5 out of 7 days, to improve : Mobility, Strengthening, Transfers, Stretching, ROM, Endurance, Ability to manage stairs, Gait, and Balance. PHYSICAL EXAM - Gen Alert and awake Lying in bed No apparent distress Oriented to: person, time, and place - Skin No breakdown Long healing surgical wound around the left head. - Eyes No abnormalities - ENMT No abnormalities - Neck No abnormalities - CVS RRR - Chest Clear - Resp Clear to auscultation - Abd Soft - GI Non distended Deferred - No abnormalities - Ext No significant edema - MSK 4/5 weakness in both lower extremities. - Neuro No focal deficits - Psych Mild anxiety. ASSESSMENT: On 10/18/2021 he was admitted to [facility] and underwent emergency surgery for 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On 10/18/2021 Pt. p resented to [facility] with sudden onset of bilateral weakness.Pt. is a 81 yo hispani c male.Pre-morbidly, Pt. was independent/mod-I in Locomotion and Self-Care; and he had good Endurance , Sphincter Control, and Safety Awareness.Currently, he has deficits of Locomotion, Safety Awareness, Balance, Transfers Control, Self-Care, and Endurance.Pt. is now referred to [facility] for acute in-patient rehabilitation in order to maximize patient's functional independence in activities of daily living, strength, ROM, and mobility.- Rehab Goal Patient has realistic goal of being discharged at assistance level 6-Odell to reside at Home with Fam lucretia/Relatives. MDM/PLAN: - Physical Therapy Gait dysfunction - to improve, our physical therapists will perform initial evaluation of pt's statu s upon admission and devise an individualized program for Gait Training, and Wheel Chair mobility Inability to transfer - to improve, our physical therapists will perform initial evaluation of pt's status upon admission and devise an individualized program for Bed mobility Need for home safety evaluation - to improve, our physical therapists will perform initial evaluatio n of pt's status upon admission and devise an individualized program for Home Evaluation Need in caregiver upon discharge - to improve, our physical therapists will perform initial evaluati on of pt's status upon admission and devise an individualized program for Caregiver Training New precaution - to improve, our physical therapists will perform initial evaluation of pt's status upon admission and devise an individualized program for Patient precaution education Edema - to improve, our physical therapists will perform initial evaluation of pt's status upon admis miri and devise an individualized program for Elevation Training, and Lymphedema Therapy Having wound - to improve, our physical therapists will perform initial evaluation of pt's status upo n admission and devise an individualized program for Wound Care Poor balance - to improve, our physical therapists will perform initial evaluation of pt's status up on admission and devise an individualized program for Balance Training Poor endurance - to improve, our physical therapists will perform initial evaluation of pt's status upon admission and devise an individualized program for Endurance Training Weakness - to improve, our physical therapists will perform initial evaluation of pt's status upon a dmission and devise an individualized program for Aquatic Therapy, Neuromuscular Reeducation, and Str engthening Achieving independence - to improve, our physical therapists will perform initial evaluation of pt's status upon admission and devise an individualized program for Community Reintegration Activities - Occupational Therapy ADL deficits - to improve, our occupation therapists will perform initial evaluation of pt's status upon admission and devise an individualized program for Bathing, Bed mobility, Community Reintegratio n, Cooking, Dressing, Eating, Fine Motor Skills, Grooming, Homemaking, Kitchen Mobility, Laundry, Pat ient Education, Safety Awareness, Splinting - Positioning, Transfers(Toilet, Tub, Shower), and Wheel Chair Management Need for pediatric acute care unit nurse - to improve, our occupation therapists will perform initial evaluation of pt's status upon admission and devise an individualized program for Caregiver Training Weakness - to improve, our occupation therapists will perform initial evaluation of pt's status upon admission and devise an individualized program for Aquatic Therapy, Balance, Endurance, UE ROM, and UE strengthening - Other See attached MAR (Medication Administration Record) - Diet Type Continue Regular - Diet - Liquid Texture Continue Regular - Tube Feed Continue N/A - Bladder care per protocol - DVT Risk due to restricted mobility - Skin Breakdown Risk Routine Wound care due to restricted mobility and age - Weight Bearing Precaution WBAT both LE - Fall Precaution Bed alarm TABS alarm Wheel chair alarm - Skin care per protocol - Diet - Solid Texture Continue Regular - Shower allowing shower for Dementia, TBI, Stroke, or others FUNCTIONAL STATUS: UPDATED AT WEEKLY TEAM CONFERENCE - Bladder Same accident frequency: 7-Ind - No accidents in the past 7 days - Bowel Same accident frequency: 7-Ind - No accidents in the past 7 days - Walking Same score based on distance walked: 0(N/A) Same score based on distance walked: 2(50-149ft) - Wheelchair Same score based on distance traveled: 0(N/A) FUNCTIONAL STATUS: - Self-Care A. Eating Ind B. Grooming Odell C. Bathing Shannan D. Dressing - Upper Shannan E. Dressing - Lower modA F. Toileting Shannan - Sphincter Control G. Bladder control Odell H. Bowel control Odell - Transfers Control I. Bed/Chair/Wheelchair sup J. Toilet sup K. Tub/Shower Shannan - Locomotion L. Walk/Wheelchair (B) Shannan M. Stairs modA - Communication N. Comprehension (B) Odell O. Expression (B) Odell - Social Cognition P. Social Interaction Odell Q. Problem Solving Odell R. Memory Odell - Endurance Fair - Balance Fair - Safety Awareness Fair QI SCORES: - Self-Care A. Eating 06-Independent B. Oral hygiene 04-Supervision or touching assistance C. Toileting hygiene 03-Partial/moderate assistance E. Shower/bathe self 03-Partial/moderate assistance F. Upper body dressing 04-Supervision or touching assistance G. Lower body dressing 03-Partial/moderate assistance H. Putting on/taking off footwear 03-Partial/moderate assistance - Mobility A. Roll left and right 04-Supervision or touching assistance B. Sit to lying 04-Supervision or touching assistance C. Lying to sitting on side of bed 04-Supervision or touching assistance D. Sit to stand 04-Supervision or touching assistance E. Chair/mxr-[id number] transfer 04-Supervision or touching assistance F. Toilet transfer 04-Supervision or touching assistance G. Car transfer 09-Not applicable I. Walk 10 feet 04-Supervision or touching assistance J. Walk 50 feet with two turns 04-Supervision or touching assistance K. Walk 150 feet 88-Not attempted due to medical condition or safety concerns L. Walking 10 feet on uneven surfaces 88-Not attempted due to medical condition or safety concerns M. 1 step (curb) 88-Not attempted due to medical condition or safety concerns N. 4 steps 88-Not attempted due to medical condition or safety concerns O. 12 steps 88-Not attempted due to medical condition or safety concerns P. Picking up object 88-Not attempted due to medical condition or safety concerns R. Wheel 50 feet with two turns 09-Not applicable S. Wheel 150 feet 09-Not applicable - Bladder and Bowel Bladder continence 2-Incontinent less than daily Bowel continence 1-Occasionally incontinent - Endurance Fair - Balance Poor - Safety Awareness Poor CURRENT FUNC. DEFICITS: Mobility, Endurance, Balance, Safety Awareness, and Self-Care SIGNATURE PANEL: (CDT)
[2021-10-25] MEDS: MONTELUKAST 10 MG TAB PO SCH (19:25)
[2021-10-25] MEDS: ATORVASTATIN 80 MG TAB PO SCH (19:25)
[2021-10-25] MEDS: MELATONIN 5 MG TABLET PO SCH (19:26)
[2021-10-25] MEDS: LORAZEPAM 0.5 MG TABLET PO PRN (19:27)
[2021-10-25] MEDS: ENSURE HIGH PROTEIN 237 ML CAN PO SCH (19:43)
[2021-10-26] MEDS: ENOXAPARIN 40 MG/0.4 ML SQ SCH (07:01)
[2021-10-26] MEDS: POLYETHYL GLY 3350 17 GM/DOSE PO SCH (09:00)
[2021-10-26] MEDS: LACTULOSE 20 GM/30 ML UCUP PO SCH (09:00)
[2021-10-26] MEDS: ENSURE HIGH PROTEIN 237 ML CAN PO SCH ×2 (09:00→19:37)
[2021-10-26] MEDS: FE SULF/FA/VIT B COMP & C TAB PO SCH (09:02)
[2021-10-26] MEDS: DIVALPROEX DR 250 MG TAB PO SCH ×2 (09:02→19:36)
[2021-10-26] MEDS: ZINC SULFATE 220 MG CAP PO SCH (09:03)
[2021-10-26] MEDS: FERROUS SULFATE 325 MG TAB PO SCH (09:03)
[2021-10-26] MEDS: SOTALOL HCL 80 MG TAB PO SCH ×2 (09:03→19:37)
[2021-10-26] MEDS: LACTOBACILLUS/ACIDOPHILUS TAB PO SCH ×2 (09:03→19:36)
[2021-10-26] MEDS: CETIRIZINE HCL 5 MG TABLET PO SCH (09:03)
[2021-10-26] MEDS: BUSPIRONE HCL 5 MG TABLET PO SCH ×2 (09:04→19:36)
[2021-10-26] MEDS: ACETAMINOPHEN 325 MG TABLET PO PRN (09:06)
[2021-10-26] MEDS: SENOSIDES 8.6 MG TAB PO SCH ×2 (09:11→19:37)
[2021-10-26] MEDS: TAMSULOSIN 0.4 MG SR CAP PO SCH ×2 (09:12→19:36)
[2021-10-26] MEDS: BACITRACIN OINTMENT 14 GM TUBE TOP SCH ×2 (10:51→19:35)
[2021-10-26] MEDS: AMLODIPINE 10 MG TAB PO SCH (12:07)
[2021-10-26] MEDS: MELATONIN 5 MG TABLET PO SCH (19:36)
[2021-10-26] MEDS: MONTELUKAST 10 MG TAB PO SCH (19:36)
[2021-10-26] MEDS: ATORVASTATIN 80 MG TAB PO SCH (19:36)
[2021-10-26] MEDS: LACTULOSE 20 GM/30 ML UCUP PO PRN (19:36)
--- NOTE | 2021-10-26 20:42 | R.PN ---
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 Pt denied any depression. WBC 6.9, Hgb 9.9, prealbumin 11.8, glucose 133, K+ 3.4. Covid-19 is negative. Ambulated 500' with a rolling walker and contact guard assistance. Up and down 20 using bilateral almanza drails. VITAL SIGNS Temperature: 98.0 F SBP/DBP: 144/64 Pulse: 77 Resp: 14 MEDICATION ALLERGIES: Codeine Geodon Iodine Morphine Quetiapine Fumarate Ziprasidone Hydrochloride ENVIRONMENTAL ALLERGIES: Kiwi Extract Strawberries - Substance Allergies None Known - Other Allergies None Known NURSING: - Shower allowing shower - Bladder care per protocol - Skin care per protocol PRECAUTIONS: - Weight Bearing Precaution WBAT both LE - Fall Precaution Bed alarm TABS alarm Wheel chair alarm - Skin Breakdown Risk Routine Wound care due to restricted mobility and age - DVT Risk due to restricted mobility ACTIVITIES OOB only with supervision THERAPIES: - Dietary and Nutrition Adequate Nutrition. Nutritional Education. Nutritional Supplements. - Occupational Therapy Cognitive Retraining. Patient needs Occupational Therapy for a daily minimum of 1.25 hours at least 5 out of 7 days, to improve Activities of Daily Living, including: Eating, Grooming, Bathing, Dressing , Toileting, Toilet Transfers, Community Reintegration, Higher functional activities, Adaptive Equipm ent, Splinting, Household Tasks, and Other activities as determined. Visual Perceptual Training. - Speech Therapy Cognitive Training. Expressive Language Skills. Memory Strategies. Patient needs Speech Therapy for a daily minimum of .5 hours at least 5 out of 7 days, to improve: Swallowing, Cognition, Language Skil ls, and Compensatory Strategies. Receptive Language Skills. Speech Intelligibility Training. - Physical Therapy Patient needs Physical Therapy for a daily minimum of 1.25 hours at least 5 out of 7 days, to improve : Mobility, Strengthening, Transfers, Stretching, ROM, Endurance, Ability to manage stairs, Gait, and Balance. PHYSICAL EXAM - Gen Alert and awake Lying in bed No apparent distress Oriented to: person, time, and place - Skin No breakdown Long healing surgical wound around the left head. - Eyes No abnormalities - ENMT No abnormalities - Neck No abnormalities - CVS RRR - Chest Clear - Resp Clear to auscultation - Abd Soft - GI Non distended Deferred - No abnormalities - Ext No significant edema - MSK 4/5 weakness in both lower extremities. - Neuro No focal deficits - Psych Mild anxiety. ASSESSMENT: On 10/18/2021 he was admitted to [facility] and underwent emergency surgery for 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On 10/18/2021 Pt. p resented to [facility] with sudden onset of bilateral weakness.Pt. is a 81 yo hispani c male.Pre-morbidly, Pt. was independent/mod-I in Locomotion and Self-Care; and he had good Endurance , Sphincter Control, and Safety Awareness.Currently, he has deficits of Locomotion, Safety Awareness, Balance, Transfers Control, Self-Care, and Endurance.Pt. is now referred to [facility] for acute in-patient rehabilitation in order to maximize patient's functional independence in activities of daily living, strength, ROM, and mobility.- Rehab Goal Patient has realistic goal of being discharged at assistance level 6-Odell to reside at Home with Fam lucretia/Relatives. MDM/PLAN: - Physical Therapy Gait dysfunction - to improve, our physical therapists will perform initial evaluation of pt's statu s upon admission and devise an individualized program for Gait Training, and Wheel Chair mobility Inability to transfer - to improve, our physical therapists will perform initial evaluation of pt's status upon admission and devise an individualized program for Bed mobility Need for home safety evaluation - to improve, our physical therapists will perform initial evaluatio n of pt's status upon admission and devise an individualized program for Home Evaluation Need in caregiver upon discharge - to improve, our physical therapists will perform initial evaluati on of pt's status upon admission and devise an individualized program for Caregiver Training New precaution - to improve, our physical therapists will perform initial evaluation of pt's status upon admission and devise an individualized program for Patient precaution education Edema - to improve, our physical therapists will perform initial evaluation of pt's status upon admi ssion and devise an individualized program for Elevation Training, and Lymphedema Therapy Having wound - to improve, our physical therapists will perform initial evaluation of pt's status up on admission and devise an individualized program for Wound Care Poor balance - to improve, our physical therapists will perform initial evaluation of pt's status up on admission and devise an individualized program for Balance Training Poor endurance - to improve, our physical therapists will perform initial evaluation of pt's status upon admission and devise an individualized program for Endurance Training Weakness - to improve, our physical therapists will perform initial evaluation of pt's status upon a dmission and devise an individualized program for Aquatic Therapy, Neuromuscular Reeducation, and Str engthening Achieving independence - to improve, our physical therapists will perform initial evaluation of pt's status upon admission and devise an individualized program for Community Reintegration Activities - Occupational Therapy ADL deficits - to improve, our occupation therapists will perform initial evaluation of pt's status upon admission and devise an individualized program for Bathing, Bed mobility, Community Reintegratio n, Cooking, Dressing, Eating, Fine Motor Skills, Grooming, Homemaking, Kitchen Mobility, Laundry, Pat ient Education, Safety Awareness, Splinting - Positioning, Transfers(Toilet, Tub, Shower), and Wheel Chair Management Need for personal care worker - to improve, our occupation therapists will perform initial evaluation of pt's status upon admission and devise an individualized program for Caregiver Training Weakness - to improve, our occupation therapists will perform initial evaluation of pt's status upon admission and devise an individualized program for Aquatic Therapy, Balance, Endurance, UE ROM, and UE strengthening - Other See attached MAR (Medication Administration Record) - Diet Type Continue Regular - Diet - Liquid Texture Continue Regular - Tube Feed Continue N/A - Bladder care per protocol - DVT Risk due to restricted mobility - Skin Breakdown Risk Routine Wound care due to restricted mobility and age - Weight Bearing Precaution WBAT both LE - Fall Precaution Bed alarm TABS alarm Wheel chair alarm - Skin care per protocol - Diet - Solid Texture Continue Regular - Shower allowing shower for Dementia, TBI, Stroke, or others FUNCTIONAL STATUS: UPDATED AT WEEKLY TEAM CONFERENCE - Bladder Same accident frequency: 7-Ind - No accidents in the past 7 days - Bowel Same accident frequency: 7-Ind - No accidents in the past 7 days - Walking Same score based on distance walked: 0(N/A) Same score based on distance walked: 2(50-149ft) - Wheelchair Same score based on distance traveled: 0(N/A) FUNCTIONAL STATUS: - Self-Care A. Eating Ind B. Grooming Odell C. Bathing Shannan D. Dressing - Upper Shannan E. Dressing - Lower modA F. Toileting Shannan - Sphincter Control G. Bladder control Odell H. Bowel control Odell - Transfers Control I. Bed/Chair/Wheelchair sup J. Toilet sup K. Tub/Shower Shannan - Locomotion L. Walk/Wheelchair (B) Shannan M. Stairs modA - Communication N. Comprehension (B) Odell O. Expression (B) Odell - Social Cognition P. Social Interaction Odell Q. Problem Solving Odell R. Memory Odell - Endurance Fair - Balance Fair - Safety Awareness Fair QI SCORES: - Self-Care A. Eating 06-Independent B. Oral hygiene 04-Supervision or touching assistance C. Toileting hygiene 03-Partial/moderate assistance E. Shower/bathe self 03-Partial/moderate assistance F. Upper body dressing 04-Supervision or touching assistance G. Lower body dressing 03-Partial/moderate assistance H. Putting on/taking off footwear 03-Partial/moderate assistance - Mobility A. Roll left and right 04-Supervision or touching assistance B. Sit to lying 04-Supervision or touching assistance C. Lying to sitting on side of bed 04-Supervision or touching assistance D. Sit to stand 04-Supervision or touching assistance E. Chair/ehy-la-hvqxn transfer 04-Supervision or touching assistance F. Toilet transfer 04-Supervision or touching assistance G. Car transfer 09-Not applicable I. Walk 10 feet 04-Supervision or touching assistance J. Walk 50 feet with two turns 04-Supervision or touching assistance K. Walk 150 feet 88-Not attempted due to medical condition or safety concerns L. Walking 10 feet on uneven surfaces 88-Not attempted due to medical condition or safety concerns M. 1 step (curb) 88-Not attempted due to medical condition or safety concerns N. 4 steps 88-Not attempted due to medical condition or safety concerns O. 12 steps 88-Not attempted due to medical condition or safety concerns P. Picking up object 88-Not attempted due to medical condition or safety concerns R. Wheel 50 feet with two turns 09-Not applicable S. Wheel 150 feet 09-Not applicable - Bladder and Bowel Bladder continence 2-Incontinent less than daily Bowel continence 1-Occasionally incontinent - Endurance Fair - Balance Poor - Safety Awareness Poor CURRENT FUNC. DEFICITS: Mobility, Endurance, Balance, Safety Awareness, and Self-Care SIGNATURE PANEL: (CDT)
[2021-10-27] MEDS: ENOXAPARIN 40 MG/0.4 ML SQ SCH (07:27)
[2021-10-27] MEDS: BACITRACIN OINTMENT 14 GM TUBE TOP SCH ×2 (07:45→20:18)
[2021-10-27] MEDS: ENSURE HIGH PROTEIN 237 ML CAN PO SCH ×2 (07:45→19:26)
[2021-10-27] MEDS: POLYETHYL GLY 3350 17 GM/DOSE PO SCH (07:45)
[2021-10-27] MEDS: ZINC SULFATE 220 MG CAP PO SCH (07:45)
[2021-10-27] MEDS: TAMSULOSIN 0.4 MG SR CAP PO SCH ×2 (07:45→20:19)
[2021-10-27] MEDS: DIVALPROEX DR 250 MG TAB PO SCH ×2 (07:46→20:00)
[2021-10-27] MEDS: FE SULF/FA/VIT B COMP & C TAB PO SCH (07:46)
[2021-10-27] MEDS: BUSPIRONE HCL 5 MG TABLET PO SCH ×2 (07:46→20:19)
[2021-10-27] MEDS: CETIRIZINE HCL 5 MG TABLET PO SCH (07:46)
[2021-10-27] MEDS: SENOSIDES 8.6 MG TAB PO SCH ×2 (07:46→20:18)
[2021-10-27] MEDS: FERROUS SULFATE 325 MG TAB PO SCH (07:46)
[2021-10-27] MEDS: LACTOBACILLUS/ACIDOPHILUS TAB PO SCH ×2 (07:46→20:18)
[2021-10-27] MEDS: AMLODIPINE 10 MG TAB PO SCH (07:46)
[2021-10-27] MEDS: SOTALOL HCL 80 MG TAB PO SCH ×2 (09:05→20:18)
--- NOTE | 2021-10-27 14:31 | RAD REPORT ---
EXAM DESCRIPTION: CT - Head Brain Wo Cont - 10/27/2021 2:18 pm CLINICAL HISTORY: R/O fluid collection COMPARISON: Head Brain Wo Cont dated 03/30/2021; Head C Spine Mpr Wo Con dated 05/02/2021 TECHNIQUE: Axial 5 mm thick images of the head were obtained without IV contrast. All CT scans are performed using dose optimization technique as appropriate and may include automated exposure control or mA/KV adjustment according to patient size. FINDINGS: Patient is remote from the right craniectomy with graft material in place. This procedure had artery occurred it at the time of the April comparison. There is no information on any interve jesika procedure or imaging. Along the inner table of the craniectomy repair there is a large subdural hyperdense collection up to 2.0 cm in thickness. This has mass effect on the right cerebral hemisphere partially effacing the ri ght lateral ventricle. The patient has moderate underlying atrophy. A midline shift of 4 mm is curren tly present. The subdural collection is predominantly hyperdense but there are areas of more isodense to hypodense material within this subdural collection. A large scalp hematoma is also present along the superficial margin of the craniectomy repair. This h as similar heterogeneous, predominantly hyper dense characteristics. No acute cortical based infarction seen. Cerebral chronic ischemic changes are mild. Ventricles are i n proportion to the amount of volume loss. Mastoid air cells and visualized portions of the paranasal sinuses are clear. No acute bony findings. Findings telephoned to the referring physician [id number] hours. IMPRESSION: Large 2.0 centimeter thick acute and subacute subdural hematoma along the inner table of the right craniectomy repair. This has mass effect on the right cerebral hemisphere with 4 mm of rig ht to left midline shift. A 2 centimeter thick scalp hematoma is present along the superficial margin of the craniectomy showin g similar age characteristics to the subdural collection. The subdural hematoma has a variable age. There is no recent imaging to establish if this is a progre ssive subdural collection. If any recent outside imaging reports or images can obtained, addendum can be issued.
--- NOTE | 2021-10-27 17:05 | R.PN ---
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 Pt denied any depression. WBC 6.9, Hgb 9.9, prealbumin 11.8, glucose 133, K+ 3.4. Covid-19 is negative. Ambulated 500' with a rolling walker and standby assistance. Up and down 15 steps using bilateral almanza drails. VITAL SIGNS Temperature: 97.7 F SBP/DBP: 142/67 Pulse: 71 Resp: 15 MEDICATION ALLERGIES: Codeine Geodon Iodine Morphine Quetiapine Fumarate Ziprasidone Hydrochloride ENVIRONMENTAL ALLERGIES: Kiwi Extract Strawberries - Substance Allergies None Known - Other Allergies None Known NURSING: - Shower allowing shower - Bladder care per protocol - Skin care per protocol PRECAUTIONS: - Weight Bearing Precaution WBAT both LE - Fall Precaution Bed alarm TABS alarm Wheel chair alarm - Skin Breakdown Risk Routine Wound care due to restricted mobility and age - DVT Risk due to restricted mobility ACTIVITIES OOB only with supervision THERAPIES: - Dietary and Nutrition Adequate Nutrition. Nutritional Education. Nutritional Supplements. - Occupational Therapy Cognitive Retraining. Patient needs Occupational Therapy for a daily minimum of 1.25 hours at least 5 out of 7 days, to improve Activities of Daily Living, including: Eating, Grooming, Bathing, Dressing , Toileting, Toilet Transfers, Community Reintegration, Higher functional activities, Adaptive Equipm ent, Splinting, Household Tasks, and Other activities as determined. Visual Perceptual Training. - Speech Therapy Cognitive Training. Expressive Language Skills. Memory Strategies. Patient needs Speech Therapy for a daily minimum of .5 hours at least 5 out of 7 days, to improve: Swallowing, Cognition, Language Skil ls, and Compensatory Strategies. Receptive Language Skills. Speech Intelligibility Training. - Physical Therapy Patient needs Physical Therapy for a daily minimum of 1.25 hours at least 5 out of 7 days, to improve : Mobility, Strengthening, Transfers, Stretching, ROM, Endurance, Ability to manage stairs, Gait, and Balance. PHYSICAL EXAM - Gen Alert and awake Lying in bed No apparent distress Oriented to: person, time, and place - Skin No breakdown Long healing surgical wound around the left head. - Eyes No abnormalities - ENMT No abnormalities - Neck No abnormalities - CVS RRR - Chest Clear - Resp Clear to auscultation - Abd Soft - GI Non distended Deferred - No abnormalities - Ext No significant edema - MSK 4/5 weakness in both lower extremities. - Neuro No focal deficits - Psych Mild anxiety. ASSESSMENT: On 10/18/2021 he was admitted to [facility] and underwent emergency surgery for 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On 10/18/2021 Pt. p resented to [facility] with sudden onset of bilateral weakness.Pt. is a 81 yo hispani c male.Pre-morbidly, Pt. was independent/mod-I in Locomotion and Self-Care; and he had good Endurance , Sphincter Control, and Safety Awareness.Currently, he has deficits of Locomotion, Safety Awareness, Balance, Transfers Control, Self-Care, and Endurance.Pt. is now referred to [facility] for acute in-patient rehabilitation in order to maximize patient's functional independence in activities of daily living, strength, ROM, and mobility.- Rehab Goal Patient has realistic goal of being discharged at assistance level 6-Odell to reside at Home with Fam lucretia/Relatives. MDM/PLAN: - Physical Therapy Gait dysfunction - to improve, our physical therapists will perform initial evaluation of pt's statu s upon admission and devise an individualized program for Gait Training, and Wheel Chair mobility Inability to transfer - to improve, our physical therapists will perform initial evaluation of pt's status upon admission and devise an individualized program for Bed mobility Need for home safety evaluation - to improve, our physical therapists will perform initial evaluatio n of pt's status upon admission and devise an individualized program for Home Evaluation Need in caregiver upon discharge - to improve, our physical therapists will perform initial evaluati on of pt's status upon admission and devise an individualized program for Caregiver Training New precaution - to improve, our physical therapists will perform initial evaluation of pt's status upon admission and devise an individualized program for Patient precaution education Edema - to improve, our physical therapists will perform initial evaluation of pt's status upon admi ssion and devise an individualized program for Elevation Training, and Lymphedema Therapy Having wound - to improve, our physical therapists will perform initial evaluation of pt's status up on admission and devise an individualized program for Wound Care Poor balance - to improve, our physical therapists will perform initial evaluation of pt's status up on admission and devise an individualized program for Balance Training Poor endurance - to improve, our physical therapists will perform initial evaluation of pt's status upon admission and devise an individualized program for Endurance Training Weakness - to improve, our physical therapists will perform initial evaluation of pt's status upon a dmission and devise an individualized program for Aquatic Therapy, Neuromuscular Reeducation, and Str engthening Achieving independence - to improve, our physical therapists will perform initial evaluation of pt's status upon admission and devise an individualized program for Community Reintegration Activities - Occupational Therapy ADL deficits - to improve, our occupation therapists will perform initial evaluation of pt's status upon admission and devise an individualized program for Bathing, Bed mobility, Community Reintegratio n, Cooking, Dressing, Eating, Fine Motor Skills, Grooming, Homemaking, Kitchen Mobility, Laundry, Pat ient Education, Safety Awareness, Splinting - Positioning, Transfers(Toilet, Tub, Shower), and Wheel Chair Management Need for professional healthcare representative - to improve, our occupation therapists will perform initial evaluation of pt's status upon admission and devise an individualized program for Caregiver Training Weakness - to improve, our occupation therapists will perform initial evaluation of pt's status upon admission and devise an individualized program for Aquatic Therapy, Balance, Endurance, UE ROM, and UE strengthening - Other See attached MAR (Medication Administration Record) - Diet Type Continue Regular - Diet - Liquid Texture Continue Regular - Tube Feed Continue N/A - Bladder care per protocol - DVT Risk due to restricted mobility - Skin Breakdown Risk Routine Wound care due to restricted mobility and age - Weight Bearing Precaution WBAT both LE - Fall Precaution Bed alarm TABS alarm Wheel chair alarm - Skin care per protocol - Diet - Solid Texture Continue Regular - Shower allowing shower for Dementia, TBI, Stroke, or others FUNCTIONAL STATUS: UPDATED AT WEEKLY TEAM CONFERENCE - Bladder Same accident frequency: 7-Ind - No accidents in the past 7 days - Bowel Same accident frequency: 7-Ind - No accidents in the past 7 days - Walking Same score based on distance walked: 0(N/A) Same score based on distance walked: 2(50-149ft) - Wheelchair Same score based on distance traveled: 0(N/A) FUNCTIONAL STATUS: - Self-Care A. Eating Ind B. Grooming Odell C. Bathing Shannan D. Dressing - Upper Shannan E. Dressing - Lower modA F. Toileting Shannan - Sphincter Control G. Bladder control Odell H. Bowel control Odell - Transfers Control I. Bed/Chair/Wheelchair sup J. Toilet sup K. Tub/Shower Shannan - Locomotion L. Walk/Wheelchair (B) Shannan M. Stairs modA - Communication N. Comprehension (B) Odell O. Expression (B) Odell - Social Cognition P. Social Interaction Odell Q. Problem Solving Odell R. Memory Odell - Endurance Fair - Balance Fair - Safety Awareness Fair QI SCORES: - Self-Care A. Eating 06-Independent B. Oral hygiene 04-Supervision or touching assistance C. Toileting hygiene 03-Partial/moderate assistance E. Shower/bathe self 03-Partial/moderate assistance F. Upper body dressing 04-Supervision or touching assistance G. Lower body dressing 03-Partial/moderate assistance H. Putting on/taking off footwear 03-Partial/moderate assistance - Mobility A. Roll left and right 04-Supervision or touching assistance B. Sit to lying 04-Supervision or touching assistance C. Lying to sitting on side of bed 04-Supervision or touching assistance D. Sit to stand 04-Supervision or touching assistance E. Chair/[id number] transfer 04-Supervision or touching assistance F. Toilet transfer 04-Supervision or touching assistance G. Car transfer 09-Not applicable I. Walk 10 feet 04-Supervision or touching assistance J. Walk 50 feet with two turns 04-Supervision or touching assistance K. Walk 150 feet 88-Not attempted due to medical condition or safety concerns L. Walking 10 feet on uneven surfaces 88-Not attempted due to medical condition or safety concerns M. 1 step (curb) 88-Not attempted due to medical condition or safety concerns N. 4 steps 88-Not attempted due to medical condition or safety concerns O. 12 steps 88-Not attempted due to medical condition or safety concerns P. Picking up object 88-Not attempted due to medical condition or safety concerns R. Wheel 50 feet with two turns 09-Not applicable S. Wheel 150 feet 09-Not applicable - Bladder and Bowel Bladder continence 2-Incontinent less than daily Bowel continence 1-Occasionally incontinent - Endurance Fair - Balance Poor - Safety Awareness Poor CURRENT FUNC. DEFICITS: Mobility, Endurance, Balance, Safety Awareness, and Self-Care SIGNATURE PANEL: (CDT)
[2021-10-27] MEDS: ATORVASTATIN 80 MG TAB PO SCH (20:18)
[2021-10-27] MEDS: MONTELUKAST 10 MG TAB PO SCH (20:19)
[2021-10-27] MEDS: MELATONIN 5 MG TABLET PO SCH (20:19)
[2021-10-28 06:45] LABS: Absolute Lymphocytes (CBC) 1.3 K/uL (0.7-4.9); Hematocrit 26.2 % (39.6-49.0); Lymphocytes % 24.2 % (15.3-44.8); MCV 85.3 fL (80-100); MPV 7.4 fL (7.6-11.3); RBC Red Blood Cell Count 3.08 M/uL (4.33-5.43)
[2021-10-28 07:03] LABS: Albumin 2.6 g/dL (3.4-5.0); Magnesium 2.4 mg/dL (1.8-2.4); Potassium 4.2 mmol/L (3.5-5.1); Prealbumin 14.2 mg/dL (20-40)
[2021-10-28] MEDS: BACITRACIN OINTMENT 14 GM TUBE TOP SCH ×2 (07:48→19:04)
[2021-10-28] MEDS: ZINC SULFATE 220 MG CAP PO SCH (07:49)
[2021-10-28] MEDS: TAMSULOSIN 0.4 MG SR CAP PO SCH ×2 (07:49→19:02)
[2021-10-28] MEDS: SENOSIDES 8.6 MG TAB PO SCH ×2 (07:49→19:01)
[2021-10-28] MEDS: POLYETHYL GLY 3350 17 GM/DOSE PO SCH (07:49)
[2021-10-28] MEDS: LACTOBACILLUS/ACIDOPHILUS TAB PO SCH ×2 (07:49→19:02)
[2021-10-28] MEDS: CETIRIZINE HCL 5 MG TABLET PO SCH (07:49)
[2021-10-28] MEDS: SOTALOL HCL 80 MG TAB PO SCH ×2 (07:50→19:02)
[2021-10-28] MEDS: FERROUS SULFATE 325 MG TAB PO SCH (07:50)
[2021-10-28] MEDS: AMLODIPINE 10 MG TAB PO SCH (07:50)
[2021-10-28] MEDS: FE SULF/FA/VIT B COMP & C TAB PO SCH (07:50)
[2021-10-28] MEDS: BUSPIRONE HCL 5 MG TABLET PO SCH ×2 (07:50→19:02)
[2021-10-28] MEDS: DIVALPROEX DR 250 MG TAB PO SCH ×2 (07:50→19:01)
[2021-10-28] MEDS: ENSURE HIGH PROTEIN 237 ML CAN PO SCH ×2 (07:51→19:04)
--- NOTE | 2021-10-28 17:09 | R.PN ---
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 Pt denied any depression. WBC 6.9, Hgb 9.9, prealbumin 11.8, glucose 133, K+ 3.4. Covid-19 is negative. Ambulated 500' with a rolling walker and standby assistance. Up and down 15 steps using bilateral almanza drails. His head CT scan shows a 4 mm right to left mid-line shift due to a subacute and acute bleed. After e xtensive communication with the surgeon's office, no pre-op or immediate post-op head CT was availabl e for comparison. Another head CT will be repeated in the AM. VITAL SIGNS Temperature: 97.7 F SBP/DBP: 142/67 Pulse: 71 Resp: 15 MEDICATION ALLERGIES: Codeine Geodon Iodine Morphine Quetiapine Fumarate Ziprasidone Hydrochloride ENVIRONMENTAL ALLERGIES: Kiwi Extract Strawberries - Substance Allergies None Known - Other Allergies None Known NURSING: - Shower allowing shower - Bladder care per protocol - Skin care per protocol PRECAUTIONS: - Weight Bearing Precaution WBAT both LE - Fall Precaution Bed alarm TABS alarm Wheel chair alarm - Skin Breakdown Risk Routine Wound care due to restricted mobility and age - DVT Risk due to restricted mobility ACTIVITIES OOB only with supervision THERAPIES: - Dietary and Nutrition Adequate Nutrition. Nutritional Education. Nutritional Supplements. - Occupational Therapy Cognitive Retraining. Patient needs Occupational Therapy for a daily minimum of 1.25 hours at least 5 out of 7 days, to improve Activities of Daily Living, including: Eating, Grooming, Bathing, Dressing , Toileting, Toilet Transfers, Community Reintegration, Higher functional activities, Adaptive Equipm ent, Splinting, Household Tasks, and Other activities as determined. Visual Perceptual Training. - Speech Therapy Cognitive Training. Expressive Language Skills. Memory Strategies. Patient needs Speech Therapy for a daily minimum of .5 hours at least 5 out of 7 days, to improve: Swallowing, Cognition, Language Skil ls, and Compensatory Strategies. Receptive Language Skills. Speech Intelligibility Training. - Physical Therapy Patient needs Physical Therapy for a daily minimum of 1.25 hours at least 5 out of 7 days, to improve : Mobility, Strengthening, Transfers, Stretching, ROM, Endurance, Ability to manage stairs, Gait, and Balance. PHYSICAL EXAM - Gen Alert and awake Lying in bed No apparent distress Oriented to: person, time, and place - Skin No breakdown Long healing surgical wound around the left head. - Eyes No abnormalities - ENMT No abnormalities - Neck No abnormalities - CVS RRR - Chest Clear - Resp Clear to auscultation - Abd Soft - GI Non distended Deferred - No abnormalities - Ext No significant edema - MSK 4/5 weakness in both lower extremities. - Neuro No focal deficits - Psych Mild anxiety. ASSESSMENT: On 10/18/2021 he was admitted to [facility] and underwent emergency surgery for 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On 10/18/2021 Pt. p resented to [facility] with sudden onset of bilateral weakness.Pt. is a 81 yo hispani c male.Pre-morbidly, Pt. was independent/mod-I in Locomotion and Self-Care; and he had good Endurance , Sphincter Control, and Safety Awareness.Currently, he has deficits of Locomotion, Safety Awareness, Balance, Transfers Control, Self-Care, and Endurance.Pt. is now referred to [facility] for acute in-patient rehabilitation in order to maximize patient's functional independence in activities of daily living, strength, ROM, and mobility.- Rehab Goal Patient has realistic goal of being discharged at assistance level 6-Odell to reside at Home with Fam lucretia/Relatives. MDM/PLAN: - Physical Therapy Gait dysfunction - to improve, our physical therapists will perform initial evaluation of pt's statu s upon admission and devise an individualized program for Gait Training, and Wheel Chair mobility Inability to transfer - to improve, our physical therapists will perform initial evaluation of pt's status upon admission and devise an individualized program for Bed mobility Need for home safety evaluation - to improve, our physical therapists will perform initial evaluatio n of pt's status upon admission and devise an individualized program for Home Evaluation Need in caregiver upon discharge - to improve, our physical therapists will perform initial evaluati on of pt's status upon admission and devise an individualized program for Caregiver Training New precaution - to improve, our physical therapists will perform initial evaluation of pt's status upon admission and devise an individualized program for Patient precaution education Edema - to improve, our physical therapists will perform initial evaluation of pt's status upon admi ssion and devise an individualized program for Elevation Training, and Lymphedema Therapy Having wound - to improve, our physical therapists will perform initial evaluation of pt's status up on admission and devise an individualized program for Wound Care Poor balance - to improve, our physical therapists will perform initial evaluation of pt's status up on admission and devise an individualized program for Balance Training Poor endurance - to improve, our physical therapists will perform initial evaluation of pt's status upon admission and devise an individualized program for Endurance Training Weakness - to improve, our physical therapists will perform initial evaluation of pt's status upon a dmission and devise an individualized program for Aquatic Therapy, Neuromuscular Reeducation, and Str engthening Achieving independence - to improve, our physical therapists will perform initial evaluation of pt's status upon admission and devise an individualized program for Community Reintegration Activities - Occupational Therapy ADL deficits - to improve, our occupation therapists will perform initial evaluation of pt's status upon admission and devise an individualized program for Bathing, Bed mobility, Community Reintegratio n, Cooking, Dressing, Eating, Fine Motor Skills, Grooming, Homemaking, Kitchen Mobility, Laundry, Pat ient Education, Safety Awareness, Splinting - Positioning, Transfers(Toilet, Tub, Shower), and Wheel Chair Management Need for urgent care technician - to improve, our occupation therapists will perform initial evaluation of pt's status upon admission and devise an individualized program for Caregiver Training Weakness - to improve, our occupation therapists will perform initial evaluation of pt's status upon admission and devise an individualized program for Aquatic Therapy, Balance, Endurance, UE ROM, and UE strengthening - Other See attached MAR (Medication Administration Record) - Diet Type Continue Regular - Diet - Liquid Texture Continue Regular - Tube Feed Continue N/A - Bladder care per protocol - DVT Risk due to restricted mobility - Skin Breakdown Risk Routine Wound care due to restricted mobility and age - Weight Bearing Precaution WBAT both LE - Fall Precaution Bed alarm TABS alarm Wheel chair alarm - Skin care per protocol - Diet - Solid Texture Continue Regular - Shower allowing shower for Dementia, TBI, Stroke, or others FUNCTIONAL STATUS: UPDATED AT WEEKLY TEAM CONFERENCE - Bladder Same accident frequency: 7-Ind - No accidents in the past 7 days - Bowel Same accident frequency: 7-Ind - No accidents in the past 7 days - Walking Same score based on distance walked: 0(N/A) Same score based on distance walked: 2(50-149ft) - Wheelchair Same score based on distance traveled: 0(N/A) FUNCTIONAL STATUS: - Self-Care A. Eating Ind B. Grooming Odell C. Bathing Shannan D. Dressing - Upper Shannan E. Dressing - Lower modA F. Toileting Shannan - Sphincter Control G. Bladder control Odell H. Bowel control Odell - Transfers Control I. Bed/Chair/Wheelchair sup J. Toilet sup K. Tub/Shower Shannan - Locomotion L. Walk/Wheelchair (B) Shannan M. Stairs modA - Communication N. Comprehension (B) Odell O. Expression (B) Odell - Social Cognition P. Social Interaction Odell Q. Problem Solving Odell R. Memory Odell - Endurance Fair - Balance Fair - Safety Awareness Fair QI SCORES: - Self-Care A. Eating 06-Independent B. Oral hygiene 04-Supervision or touching assistance C. Toileting hygiene 03-Partial/moderate assistance E. Shower/bathe self 03-Partial/moderate assistance F. Upper body dressing 04-Supervision or touching assistance G. Lower body dressing 03-Partial/moderate assistance H. Putting on/taking off footwear 03-Partial/moderate assistance - Mobility A. Roll left and right 04-Supervision or touching assistance B. Sit to lying 04-Supervision or touching assistance C. Lying to sitting on side of bed 04-Supervision or touching assistance D. Sit to stand 04-Supervision or touching assistance E. Chair/[id number]-bfzbo transfer 04-Supervision or touching assistance F. Toilet transfer 04-Supervision or touching assistance G. Car transfer 09-Not applicable I. Walk 10 feet 04-Supervision or touching assistance J. Walk 50 feet with two turns 04-Supervision or touching assistance K. Walk 150 feet 88-Not attempted due to medical condition or safety concerns L. Walking 10 feet on uneven surfaces 88-Not attempted due to medical condition or safety concerns M. 1 step (curb) 88-Not attempted due to medical condition or safety concerns N. 4 steps 88-Not attempted due to medical condition or safety concerns O. 12 steps 88-Not attempted due to medical condition or safety concerns P. Picking up object 88-Not attempted due to medical condition or safety concerns R. Wheel 50 feet with two turns 09-Not applicable S. Wheel 150 feet 09-Not applicable - Bladder and Bowel Bladder continence 2-Incontinent less than daily Bowel continence 1-Occasionally incontinent - Endurance Fair - Balance Poor - Safety Awareness Poor CURRENT FUNC. DEFICITS: Mobility, Endurance, Balance, Safety Awareness, and Self-Care SIGNATURE PANEL: (CDT)
[2021-10-28] MEDS: LACTULOSE 20 GM/30 ML UCUP PO PRN (19:01)
[2021-10-28] MEDS: MELATONIN 5 MG TABLET PO SCH (19:01)
[2021-10-28] MEDS: MONTELUKAST 10 MG TAB PO SCH (19:02)
[2021-10-28] MEDS: ATORVASTATIN 80 MG TAB PO SCH (19:02)
[2021-10-29] MEDS: CETIRIZINE HCL 5 MG TABLET PO SCH (07:57)
[2021-10-29] MEDS: BACITRACIN OINTMENT 14 GM TUBE TOP SCH ×2 (07:57→19:16)
[2021-10-29] MEDS: SOTALOL HCL 80 MG TAB PO SCH ×2 (07:58→19:15)
[2021-10-29] MEDS: POLYETHYL GLY 3350 17 GM/DOSE PO SCH (07:58)
[2021-10-29] MEDS: DIVALPROEX DR 250 MG TAB PO SCH ×2 (07:58→19:14)
[2021-10-29] MEDS: SENOSIDES 8.6 MG TAB PO SCH ×2 (07:58→19:16)
[2021-10-29] MEDS: TAMSULOSIN 0.4 MG SR CAP PO SCH ×2 (07:59→19:25)
[2021-10-29] MEDS: ZINC SULFATE 220 MG CAP PO SCH (07:59)
[2021-10-29] MEDS: LACTOBACILLUS/ACIDOPHILUS TAB PO SCH ×2 (07:59→19:14)
[2021-10-29] MEDS: BUSPIRONE HCL 5 MG TABLET PO SCH ×2 (07:59→19:14)
[2021-10-29] MEDS: FERROUS SULFATE 325 MG TAB PO SCH (07:59)
[2021-10-29] MEDS: FE SULF/FA/VIT B COMP & C TAB PO SCH (08:00)
[2021-10-29] MEDS: AMLODIPINE 10 MG TAB PO SCH (08:00)
[2021-10-29] MEDS: ENSURE HIGH PROTEIN 237 ML CAN PO SCH ×2 (08:03→19:16)
--- NOTE | 2021-10-29 08:17 | RAD REPORT ---
EXAM DESCRIPTION: CT - Head Brain Wo Cont - 10/29/2021 6:03 am CLINICAL HISTORY: Ff up for comparison Subdural hematoma, follow-up assessment. COMPARISON: Head Brain Wo Cont dated 10/27/2021; Head Brain Wo Cont dated 03/30/2021 TECHNIQUE: All CT scans are performed using dose optimization technique as appropriate and may inclu de automated exposure control or mA/KV adjustment according to patient size. FINDINGS: The patient's known right-sided subdural hematoma remains present and unchanged measuring 2 cm in thickness.The previously noted midline shift to the left has fractionally improved currently measuring 3 mm.Right craniectomy with, large, with graft material in place again noted. Right scalp h ematoma also present, appearing essentially stable. Chronic sinusitis right maxillary antrum. IMPRESSION: There has been slight improvement in right to left midline shift since comparative study . No real change in the size or imaging appearance of the large right-sided subdural hematoma.
--- NOTE | 2021-10-29 09:37 | P.RH.PN ---
Estimated Length of Stay: 11 Expected Discharge Date: 10/31/21 Discharge Disposition Plan: Home Family Support: Yes [facility] Goal: Mobility, Transfers, Self Care Vital Signs: Last Vital Signs Temp 97.5 F 10/29/21 07:01 Pulse 76 10/29/21 08:00 Resp 18 10/29/21 07:01 BP 151/70 H 10/29/21 08:00 Pulse Ox 94 10/29/21 07:01 Laboratory: Laboratory Last Values WBC 5.3 K/uL (4.3-10.9) D 10/28/21 06:27 RBC 3.08 M/uL (4.33-5.43) L 10/28/21 06:27 Hgb 9.1 g/dL (13.6-17.9) L 10/28/21 06:27 Hct 26.2 % (39.6-49.0) L 10/28/21 06:27 MCV 85.3 fL (80-100) 10/28/21 06:27 MCH 29.4 pg (27.0-35.0) 10/28/21 06:27 MCHC 34.5 g/dL (32.0-36.0) 10/28/21 06:27 RDW 15.3 % (12.1-15.2) H 10/28/21 06:27 Plt Count 208 K/uL (152-406) D 10/28/21 06:27 MPV 7.4 fL (7.6-11.3) L D 10/28/21 06:27 Neutrophils % 58.9 % (41.7-73.7) 10/28/21 06:27 Lymphocytes % 24.2 % (15.3-44.8) 10/28/21 06:27 Monocytes % 11.0 % (3.3-12.3) 10/28/21 06:27 Eosinophils % 5.5 % (0-4.4) H 10/28/21 06:27 Basophils % 0.4 % (0-1.3) 10/28/21 06:27 Absolute Neutrophils 3.1 K/uL (1.8-8.0) 10/28/21 06:27 Absolute Lymphocytes 1.3 K/uL (0.7-4.9) 10/28/21 06:27 Absolute Monocytes 0.6 K/uL (0.1-1.3) 10/28/21 06:27 Absolute Eosinophils 0.3 K/uL (0-0.5) 10/28/21 06:27 Absolute Basophils 0.0 K/uL (0-0.5) 10/28/21 06:27 Sodium 139 mmol/L (136-145) 10/28/21 06:29 Potassium 4.2 mmol/L (3.5-5.1) 10/28/21 06:29 Chloride 108 mmol/L (98-107) H 10/28/21 06:29 Carbon Dioxide 28 mmol/L (21-32) 10/28/21 06:29 Anion Gap 7.2 mEq/L (5.0-15.0) 10/28/21 06:29 BUN 13 mg/dL (7-18) 10/28/21 06:29 Creatinine 0.75 mg/dL (0.55-1.3) 10/28/21 06:29 Est GFR (CKD-EPI) 91 ml/min (=/>90) 10/28/21 06:29 Glucose 112 mg/dL (74-106) H 10/28/21 06:29 Calcium 8.6 mg/dL (8.5-10.1) 10/28/21 06:29 Magnesium 2.4 mg/dL (1.8-2.4) D 10/28/21 06:29 Albumin 2.6 g/dL (3.4-5.0) L 10/28/21 06:29 Prealbumin 14.2 mg/dL (20-40) L 10/28/21 06:29 Urine Color Yellow (Yellow) 10/20/21 21:19 Urine Clarity Clear (Clear) 10/20/21 21:19 Urine pH 6.0 (5.0-7.0) 10/20/21 21:19 Ur Specific [place] 1.015 (1.005-1.030) 10/20/21 21:19 Glucose (UA)(Auto) Negative (Negative) 10/20/21 21:19 Urine Ketones 1+ (Negative) H 10/20/21 21:19 Urine Blood 1+ (Negative) H 10/20/21 21:19 Urine Nitrite Negative (Negative) 10/20/21 21:19 Urine Bilirubin Negative (Negative) 10/20/21 21:19 Urine Urobilinogen 0.2 mg/dL (0.2-1.0) 10/20/21 21:19 Ur Leukocyte Esterase Negative (Negative) 10/20/21 21:19 Urine RBC 5-10 /HPF (None Seen) H 10/20/21 21:19 Urine Red Cell Clumps Cancelled 10/20/21 20:55 Urine WBC <5 /HPF (<5) 10/20/21 21:19 Urine WBC Clumps Cancelled 10/20/21 20:55 Ur Squamous Epith Cells <5 /HPF (None Seen) 10/20/21 21:19 U Non-Squamous Epi Cells Cancelled 10/20/21 20:55 Ur Transition Epith Cell Cancelled 10/20/21 20:55 Ur Renal Epithelial Cell Cancelled 10/20/21 20:55 Calcium Carbonate Cryst Cancelled 10/20/21 20:55 Calcium Oxalate Crystal Cancelled 10/20/21 20:55 Leucine Crystals Cancelled 10/20/21 20:55 Cystine Crystals Cancelled 10/20/21 20:55 Uric Acid Crystals Cancelled 10/20/21 20:55 Triple Phos Crystals Cancelled 10/20/21 20:55 Tyrosine Crystals Cancelled 10/20/21 20:55 Unidentified Crystals Cancelled 10/20/21 20:55 Amorphous Crystals Cancelled 10/20/21 20:55 Urine Bacteria None seen /HPF (<20) 10/20/21 21:19 Hyaline Casts Cancelled 10/20/21 20:55 Granular Casts Cancelled 10/20/21 20:55 Waxy Casts Cancelled 10/20/21 20:55 RBC Casts Cancelled 10/20/21 20:55 WBC Casts Cancelled 10/20/21 20:55 Urine Mucus Slight /HPF (None Seen) 10/20/21 21:19 Urine Trichomonas Cancelled 10/20/21 20:55 Ur Yeast w Hyphae Cancelled 10/20/21 20:55 Urine Yeast (Budding) Cancelled 10/20/21 20:55 Urine Sperm Cancelled 10/20/21 20:55 Ur Oval Fat Bodies Cancelled 10/20/21 20:55 Urine Total Protein 1+ (Negative) H 10/20/21 21:19 Urine Ascorbic Acid Cancelled 10/20/21 20:55 Urine Fat Cancelled 10/20/21 20:55 SARS-CoV-2 Rap RNA(RT-PCR) Negative (NEGATIVE) 10/27/21 07:00 Weight: 165 lb 8 oz Wound Present: No Closed Surgical Incision Present: Yes Negative Pressure Wound Therapy Present: No Physician Update: His repeat head CT shows slight improvement in the large right frontal hematoma midline shift from 4 to 3 mm. He is doing very well clinically. He is on SCDs and lovenox is D/Stu. Bed mobility, sit to stand is Lior. Walking 500' with RW at SBA. WC mobility 250' at Lior. Setup for grooming, supervision for bathing. SBA for toilet and shower transfers. He is going to [facility] for [facility] care due to dementia. Functional Improvement: Patient has progressed well w/ goals and therapy, however is limited by his cognitive status. Patient presents w/ increased impulsivity, and requires frequent VC to address said issue, and for re-directi on. Summary: Patient's care plan and [facility] goals have been reviewed and revised as necessary. Please see the Rehabilitation Signature page for all necessary signatures.
[2021-10-29] MEDS: ACETAMINOPHEN 325 MG TABLET PO PRN (13:18)
[2021-10-29] MEDS: MONTELUKAST 10 MG TAB PO SCH (19:15)
[2021-10-29] MEDS: LORAZEPAM 0.5 MG TABLET PO PRN (19:15)
[2021-10-29] MEDS: ATORVASTATIN 80 MG TAB PO SCH (19:15)
[2021-10-29] MEDS: MELATONIN 5 MG TABLET PO SCH (19:15)
[2021-10-30] MEDS: LACTOBACILLUS/ACIDOPHILUS TAB PO SCH ×2 (07:44→19:19)
[2021-10-30] MEDS: SENOSIDES 8.6 MG TAB PO SCH ×2 (07:44→19:19)
[2021-10-30] MEDS: ENSURE HIGH PROTEIN 237 ML CAN PO SCH ×2 (07:44→19:20)
[2021-10-30] MEDS: AMLODIPINE 10 MG TAB PO SCH (07:45)
[2021-10-30] MEDS: FERROUS SULFATE 325 MG TAB PO SCH (07:45)
[2021-10-30] MEDS: TAMSULOSIN 0.4 MG SR CAP PO SCH ×2 (07:45→19:19)
[2021-10-30] MEDS: DIVALPROEX DR 250 MG TAB PO SCH ×2 (07:45→19:19)
[2021-10-30] MEDS: BUSPIRONE HCL 5 MG TABLET PO SCH ×2 (07:45→19:19)
[2021-10-30] MEDS: FE SULF/FA/VIT B COMP & C TAB PO SCH (07:45)
[2021-10-30] MEDS: SOTALOL HCL 80 MG TAB PO SCH ×2 (07:45→19:19)
[2021-10-30] MEDS: POLYETHYL GLY 3350 17 GM/DOSE PO SCH (07:46)
[2021-10-30] MEDS: CETIRIZINE HCL 5 MG TABLET PO SCH (07:46)
[2021-10-30] MEDS: ZINC SULFATE 220 MG CAP PO SCH (07:46)
[2021-10-30] MEDS: BACITRACIN OINTMENT 14 GM TUBE TOP SCH ×2 (07:47→19:20)
[2021-10-30] MEDS: MONTELUKAST 10 MG TAB PO SCH (19:19)
[2021-10-30] MEDS: MELATONIN 5 MG TABLET PO SCH (19:19)
[2021-10-30] MEDS: ATORVASTATIN 80 MG TAB PO SCH (19:19)
[2021-10-30] MEDS: LACTULOSE 20 GM/30 ML UCUP PO PRN (19:19)
[2021-10-30] MEDS: LORAZEPAM 0.5 MG TABLET PO PRN (19:19)
[2021-10-30 19:31] VITALS: TEMP 97.6
[2021-10-31 07:15] VITALS: BP 120/59
[2021-10-31] MEDS: POLYETHYL GLY 3350 17 GM/DOSE PO SCH (07:42)
[2021-10-31] MEDS: BACITRACIN OINTMENT 14 GM TUBE TOP SCH (07:42)
[2021-10-31] MEDS: CETIRIZINE HCL 5 MG TABLET PO SCH (07:43)
[2021-10-31] MEDS: FE SULF/FA/VIT B COMP & C TAB PO SCH (07:43)
[2021-10-31] MEDS: ZINC SULFATE 220 MG CAP PO SCH (07:43)
[2021-10-31] MEDS: FERROUS SULFATE 325 MG TAB PO SCH (07:43)
[2021-10-31] MEDS: SOTALOL HCL 80 MG TAB PO SCH (07:43)
[2021-10-31] MEDS: ENSURE HIGH PROTEIN 237 ML CAN PO SCH (07:43)
[2021-10-31] MEDS: DIVALPROEX DR 250 MG TAB PO SCH (07:44)
[2021-10-31] MEDS: AMLODIPINE 10 MG TAB PO SCH (07:44)
[2021-10-31] MEDS: TAMSULOSIN 0.4 MG SR CAP PO SCH (07:44)
[2021-10-31] MEDS: SENOSIDES 8.6 MG TAB PO SCH (07:44)
[2021-10-31] MEDS: BUSPIRONE HCL 5 MG TABLET PO SCH (07:44)
[2021-10-31] MEDS: LACTOBACILLUS/ACIDOPHILUS TAB PO SCH (07:44)
--- NOTE | 2021-11-12 15:19 | R.DS ---
DISCHARGE SUMMARY FACILITY [facility] MR# [id number] NAME REMA KUO ADDRESS [address] [place] [address] [address] [id number] PHONE DATE OF 1940 AGE 81 SSN# [id number] GENDER Male DEXTERITY Unknown dexterity MARITAL STATUS ENCOUNTER PHYSICIAN Dr. Jax Cameron M.D. 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 DISCHARGE COMORBIDITIES: - N/A Encounter for surgical aftercare following surgery on the nervous system (Z48.811) DATE OF ADMISSION 10/20/2021 20:30 (CDT) MEDICATION ALLERGIES: Codeine Geodon Iodine Morphine Quetiapine Fumarate Ziprasidone Hydrochloride ENVIRONMENTAL ALLERGIES: Kiwi Extract Strawberries - Substance Allergies None Known - Other Allergies None Known DISCHARGE MEDICATIONS: Other- ContinueSee attached MAR (Medication Administration Record). NURSING: - Shower allowing shower - Bladder care per protocol - Skin care per protocol PRECAUTIONS: - Weight Bearing Precaution WBAT both LE - Fall Precaution Bed alarm TABS alarm Wheel chair alarm - Skin Breakdown Risk Routine Wound care due to restricted mobility and age - DVT Risk due to restricted mobility ACTIVITIES OOB only with supervision THERAPIES: - Dietary and Nutrition Adequate Nutrition Nutritional Education Nutritional Supplements - Occupational Therapy Cognitive Retraining Patient needs Occupational Therapy for a daily minimum of 1.25 hours at least 5 out of 7 days, to imp rove Activities of Daily Living, including: Eating, Grooming, Bathing, Dressing, Toileting, Toilet Tr ansfers, Community Reintegration, Higher functional activities, Adaptive Equipment, Splinting, Househ old Tasks, and Other activities as determined Visual Perceptual Training - Speech Therapy Cognitive Training Expressive Language Skills Memory Strategies Patient needs Speech Therapy for a daily minimum of .5 hours at least 5 out of 7 days, to improve: Sw allowing, Cognition, Language Skills, and Compensatory Strategies Receptive Language Skills Speech Intelligibility Training - Physical Therapy Patient needs Physical Therapy for a daily minimum of 1.25 hours at least 5 out of 7 days, to improve : Mobility, Strengthening, Transfers, Stretching, ROM, Endurance, Ability to manage stairs, Gait, and Balance HISTORY OF PRESENT ILLNESS: On 10/18/2021 he was admitted to [facility] and underwent emergency surgery for 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On 10/18/2021 Pt. p resented to [facility] with sudden onset of bilateral weakness.Pt. is a 81 yo hispani c male.Pre-morbidly, Pt. was independent/mod-I in Locomotion and Self-Care; and he had good Endurance , Sphincter Control, and Safety Awareness.Currently, he has deficits of Locomotion, Safety Awareness, Balance, Transfers Control, Self-Care, and Endurance.Pt. is now referred to [facility] for acute in-patient rehabilitation in order to maximize patient's functional independence in activities of daily living, strength, ROM, and mobility.- Rehab Goal Patient has realistic goal of being discharged at assistance level 6-Odell to reside at Home with Fam lucretia/Relatives. DVT RISK: On 10/20/2021 the following precautions were added for the patient: DVT Risk - due to restricted mobi lity. On 10/21/2021 the following precautions were added for the patient: DVT Risk - due to restricted mob ility. On 10/25/2021 the following precautions were removed for the patient: DVT Risk - due to restricted m obility. On 10/26/2021 the following precautions were added for the patient: DVT Risk - due to restricted mob ility. The following precautions were removed for the patient: DVT Risk - due to restricted mobility, and DV T Risk - due to restricted mobility. On 10/20/2021 the following precautions were added for the patient: Fall Precaution - Wheel chair ala rm, Fall Precaution - TABS alarm, and Fall Precaution - Bed alarm. On 10/25/2021 the following precautions were added for the patient: Fall Precaution - Bed alarm, Fal l Precaution - TABS alarm, and Fall Precaution - Wheel chair alarm. On 10/20/2021 the following precautions were removed for the patient: Fall Precaution - Bed alarm, Fa ll Precaution - TABS alarm, Fall Precaution - Wheel chair alarm, Fall Precaution - Bed alarm, Fall P recaution - TABS alarm, and Fall Precaution - Wheel chair alarm. The following precautions were added for the patient: Skin Breakdown Risk - Routine Wound care, and S kin Breakdown Risk - due to restricted mobility and age. On 10/21/2021 the following precautions were added for the patient: Skin Breakdown Risk - Routine Wo und care, and Skin Breakdown Risk - due to restricted mobility and age. On 10/25/2021 the following precautions were removed for the patient: Skin Breakdown Risk - Routine Wound care, and Skin Breakdown Risk - due to restricted mobility and age. On 10/26/2021 the following precautions were added for the patient: Skin Breakdown Risk - Routine Wo und care, and Skin Breakdown Risk - due to restricted mobility and age. The following precautions were removed for the patient: Skin Breakdown Risk - Routine Wound care, Ski n Breakdown Risk - due to restricted mobility and age, Skin Breakdown Risk - Routine Wound care, and Skin Breakdown Risk - due to restricted mobility and age. On 10/20/2021 the following precautions were added for the patient: Weight Bearing Precaution - WBAT both LE. On 10/21/2021 the following precautions were added for the patient: Weight Bearing Precaution - WBAT both LE. On 10/25/2021 the following precautions were removed for the patient: Weight Bearing Precaution - WB AT both LE. On 10/26/2021 the following precautions were added for the patient: Weight Bearing Precaution - WBAT both LE. DIET - LIQUID TEXTURE: On 10/20/2021 Pt was upgraded to Regular Diet - Liquid Texture. DIET - SOLID TEXTURE: On 10/20/2021 Pt was upgraded to Regular Diet - Solid Texture. DIET TYPE: On 10/20/2021 Pt was upgraded to Regular Diet Type. FALL PRECAUTION: SKIN BREAKDOWN RISK: TUBE FEED: On 10/20/2021 Pt was changed to N/A Tube Feed. WEIGHT BEARING PRECAUTION: DISCHARGE PHYSICAL EXAM - Gen Alert and awake Lying in bed No apparent distress Oriented to: person, time, and place - Skin No breakdown Long healing surgical wound around the left head. - Eyes No abnormalities - ENMT No abnormalities - Neck No abnormalities - CVS RRR - Chest Clear - Resp Clear to auscultation - Abd Soft - GI Non distended Deferred - No abnormalities - Ext No significant edema - MSK 4/5 weakness in both lower extremities. - Neuro No focal deficits - Psych Mild anxiety. FUNCTIONAL STATUS: - Self-Care A. Eating 7-Ind B. Grooming 6-Odell C. Bathing 6-Odell D. Dressing - Upper 6-Odell E. Dressing - Lower 6-Odell F. Toileting 6-Odell - Sphincter Control G. Bladder control 6-Odell H. Bowel control 6-Odell - Transfers Control I. Bed/Chair/Wheelchair 5-sup J. Toilet 6-Odell K. Tub/Shower 6-Odell - Locomotion L. Walk/Wheelchair (B) 6-Odell M. Stairs 5-sup - Communication N. Comprehension (B) 6-Odell O. Expression (B) 6-Odell - Social Cognition P. Social Interaction 6-Odell Q. Problem Solving 6-Odell R. Memory 6-Odell - Endurance Good - Balance Good - Safety Awareness Good QI SCORES: - Self-Care A. Eating 06-Independent B. Oral hygiene 04-Supervision or touching assistance C. Toileting hygiene 03-Partial/moderate assistance E. Shower/bathe self 03-Partial/moderate assistance F. Upper body dressing 04-Supervision or touching assistance G. Lower body dressing 03-Partial/moderate assistance H. Putting on/taking off footwear 03-Partial/moderate assistance - Mobility A. Roll left and right 04-Supervision or touching assistance B. Sit to lying 04-Supervision or touching assistance C. Lying to sitting on side of bed 04-Supervision or touching assistance D. Sit to stand 04-Supervision or touching assistance E. Chair/xel-zr-ebdou transfer 04-Supervision or touching assistance F. Toilet transfer 04-Supervision or touching assistance G. Car transfer 09-Not applicable I. Walk 10 feet 04-Supervision or touching assistance J. Walk 50 feet with two turns 04-Supervision or touching assistance K. Walk 150 feet 88-Not attempted due to medical condition or safety concerns L. Walking 10 feet on uneven surfaces 88-Not attempted due to medical condition or safety concerns M. 1 step (curb) 88-Not attempted due to medical condition or safety concerns N. 4 steps 88-Not attempted due to medical condition or safety concerns O. 12 steps 88-Not attempted due to medical condition or safety concerns P. Picking up object 88-Not attempted due to medical condition or safety concerns R. Wheel 50 feet with two turns 09-Not applicable S. Wheel 150 feet 09-Not applicable - Bladder and Bowel Bladder continence 2-Incontinent less than daily Bowel continence 1-Occasionally incontinent - Endurance Fair - Balance Poor - Safety Awareness Poor DISCHARGE INSTRUCTIONS: - N/A Lovenox 40 mg sq daily. DISCHARGE PLAN, FOLLOW UP CARE PROVISIONS: - Estimated Length of Stay (days) 17. - Consensus on plan Discharge plan has been discussed with primary caregiver. Patient/Family is in agreement with the nikolas n. Primary caregiver is in agreement with the plan. - Patient/Family Goals Return home independently. - Planned Living Setting Upon Discharge Home, to live with Family/Relatives. Transitional Living. SIGNATURE PANEL: (CDT)
== END 2021-10-31 15:00 | DRG 949 ==
LOC: 5TH 20:30
PROVIDERS: ADMIT Psychiatry & Neurology Neurology with Special Qualifications in Child Neurology; ATTEND Psychiatry & Neurology Neurology with Special Qualifications in Child Neurology
DX: Z48.811 Encounter for surgical aftercare following surgery on the nervous system (principal); I62.03 Nontraumatic chronic subdural hemorrhage; R53.1 Weakness; F03.90 Unspecified dementia, unspecified severity, without behavioral disturbance, psychotic disturbance, mood disturbance, and anxiety; J43.9 Emphysema, unspecified; Z20.822 Contact with and (suspected) exposure to COVID-19
CPT/HCPCS: 36415; 70450; 80048; 82040; 83735; 84134; 85025; 87086; 87088; 92507; 92523; 97112; 97116; 97129; 97130; 97161; 97165; 97530; 97542; J1650; U0003

== ENCOUNTER 2022-01-09 20:30 | Emergency (ER) | payer OTHER ==
--- OUTSIDE RECORDS SUMMARY | 2022-01-09 20:42 | XMS REPORT | Continuity of Care Document ---
:1940 Author Organization [facility] t Address [address] [place] [address] Dr. Hussein. [address] [place] [address] Care Team Providers Name Role Phone JAMIA ROBLES Primary Care Physician Unavailable CORINNA IZAGUIRRE Attending Clinician Unavailable [id number] Attending Clinician Unavailable LOAN PALOMARES Attending Clinician Unavailable Loan Palomares MD Attending Clinician VARGAS ZAMBRANO Attending Clinician Unavailable [facility] Attending Clinician Unavailable Chi Stone MD Attending Clinician , [facility] Room Attending Clinician Unavailable Cecy Payne PA-C Attending Clinician [phone] Jarett Lawrence NP Attending Clinician PATRICK TELLO Attending Clinician Unavailable Patrick Tello MD Attending Clinician Jeff Rm MD Attending Clinician Sylvester Stone MD Attending Clinician SYLVESTER STONE Attending Clinician Unavailable [facility] Attending Clinician Unavailable HASN MCKEON NATASHA Attending Clinician Unavailable JARETT LAWRENCE Attending Clinician Unavailable KERVIN BRADLEY Attending Clinician Unavailable Madie BABCOCK, Kervin Glover Attending Clinician Lai Gracia MD Attending Clinician LAI GRACIA Attending Clinician Unavailable Keir BABCOCK, Alicia He Attending Clinician [phone] Lindsay Hairston Attending Clinician Tiburcio BABCOCK, Deisy Beyer Attending Clinician [phone] Kendal BABCOCK, Dougie Cardenas Attending Clinician Kailey BABCOCK, Jose Manuel Vázquez Attending Clinician [phone] DOUGIE EDMONDS Attending Clinician Unavailable DEISY DEY Attending Clinician Unavailable Isaiah BABCOCK, Doyle Romo Attending Clinician DOYLE COLON Attending Clinician Unavailable Sonja BABCOCK, Huber Castillo Attending Clinician Gisela Murcia CRNA Attending Clinician [phone] Vargas Zambrano MD Attending Clinician DANIAL SZYMANSKI Attending Clinician Unavailable [id number] Admitting Clinician Unavailable LOAN PALOMARES Admitting Clinician Unavailable VARGAS ZAMBRANO Admitting Clinician Unavailable [facility] Admitting Clinician Unavailable HANS MCKEON NATASHA Admitting Clinician Unavailable KERVIN BRADLEY Admitting Clinician Unavailable DEISY DEY Admitting Clinician Unavailable DANIAL SZYMANSKI Admitting Clinician Unavailable Payers Payer Name Policy Type Policy Number Effective Date Expiration Date S nic MEDICARE PART A [id number] 2005 2024 AND B 00:00:00 00:00:00 MEDICARE A B [id number] 2005 00:00:00 [facility] [id number] Problems Condition Condition Condition Status Onset Resolution Last Treating Co mments Source Name Details Category Date Date Treatment Clinician Date 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 [facility] hemat[facility] hematoma 05[facility]15 [facility] 00[facility] 00 [facility] Atrial Atrial Disease Active 2020-[address] fibrillati fibrillati 04-28 [facility] on on 00:00: Medical 00 [facility] Congestive Congestive Disease Active 2020-[address] heart heart 04-28 [facility] failure failure 00:00: Medical (CHF) (CHF) 00 Center Personal Personal Disease Active 2020-03 [facility] history of history of 04-28 [facility] fall fall 00:00: Medical 00 [facility] Traumatic Traumatic Disease Active 2020-[address] epidural epidural 04-27 [facility] hematoma hematoma 00:00: Medica l without without 00 Center loss of loss of consciousn consciousn ess ess Hx of Hx of Disease Active [facility] exercise exercise 04-17 Colleg e stress stress 00:00: of test test 00 Medicin e Renal Renal Disease Active [facility] 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College aneurysm aneurysm 00:00: of (HCCode) (HCCode) 00 Medici n e Carotid Carotid Disease Active [facility] artery artery 6-26 [facility] stenosis stenosis 00:00: Medica l 00 [place] Carotid Carotid Disease Active [facility] artery artery [facility] occlusion occlusion Medi [facility] Hyperlipid Hyperlipid Disease Active [facility] emia emia [facility] Coronary Coronary Disease Active [facility] artery 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 renal renal Medical artery artery Center Allergies, Adverse Reactions, Alerts Allergy Allergy Status Severity Reaction(s) Onset Inactive Treating Comm ents Source Name Type Date Date Clinician Morphine Propensi Active Other [facility] Sulfate ty to 8-17 reaction( Colleg e adverse 00:00: s): of reaction 00 Unknown Medicin s to e drug Tositumo Propensi Active Other [facility] mab ty to 10-07 reaction( Aneta adverse 00:00: s): Other of reaction 00 (See Medicin s to Comments) e drug , UnknownAl lergy unknown Ziprasid Propensi Active Other [facility] one Hcl ty to 10-07 reaction( Colle e adverse 00:00: s): Other of reaction 00 (See Medicin s to Comments) e drug dyskinesi a Ziprasid Propensi Active Other (See dyskinesi [facility] one Hcl ty to Comments) 10-07 a [facility] adverse 00:00: Medical reaction 00 Center s Tositumo Propensi Active Other (See Allergy [facility] mab ty to Comments) 10-07 unknown [facility] adverse 00:00: Medical reaction 00 Center s TOSITUMO Allergy Active Med Other [facility] MAB 10-07 00:00: 00 ZIPRASID Allergy Active High Other [facility] ONE HCL 10-07 00:00: 00 Codeine Propensi Active [facility] ty to 04-17 College adverse 00:00: of reaction 00 Medicin s to e drug Kdc:Laurel Propensi Active [facility] ow ty to 04-17 College Dye+Zipr adverse 00:00: of asidone+ reaction 00 Medici n Brillian s to e t Blue drug Fcf Iodine Propensi Active Other [facility] ty to 04-17 reaction( College adverse 00:00: s): of reaction 00 Unknown Medicin s to e drug Opioid Propensi Active [facility] Analgesi ty to 04-17 College cs adverse 00:00: of reaction 00 Medicin s to e drug Eureka Propensi Active 2018-03 Other [facility] Fruits ty to 2-18 reaction( Aneta adverse 00:00: s): Other of reaction 00 (See Medicin s to Comments) e food Severe Lower jaw pain CITRUS Allergy Active Med Other [address] [facility] [facility] AND 2-18 [facility] DERIVATI 00:00: Medical VES 00 Center Eureka Propensi Active Other (See [address] And ty to Comments) 2-18 Lower jaw Luke s Derivati adverse 00:00: pain Medical ves reaction 00 Center s Codeine Propensi Active Hives Other [facility] ty to 08-31 reaction( Aneta adverse 00:00: s): chest of reaction 00 pain, Medicin s to N\\V, e drug Hives/Kevin hOther reaction( s): Hives/Kevin hOther reaction( s): Hives/Kevin h Other reaction( s): UnknownOt her reaction( s): Hives/Kevin h Kiwi Propensi Active Anaphylaxis Other [place] k[place]li Extract ty to 08-31 reaction( [facility] adverse 00:00: s): of reaction 00 Anaphylax Medic in s to isThroat e drug swells, per ptThroat swells, per pt Other reaction( s): Anaphylax is, Unknown Morphine Propensi Active Anaphylaxis Other [facility] ty to 08-31 reaction( Aneta adverse 00:00: s): of reaction 00 Anaphylax Medic in s to isOther e drug reaction( s): Anaphylax isOther reaction( s): Anaphylax is Other reaction( s): Anaphylax is Quetiapi Propensi Active Other [facility] ne ty to 08-31 reaction( Aneta Fumarate adverse 00:00: s): of reaction 00 extrapyra Medic in s to dimal e drug symptoms, UnknownOt her reaction( s): UnknownOt her reaction( s): Unknown Other reaction( s): Other (See Comments) , UnknownOt her reaction( s): Unknown Strawber Propensi Active Other Quinn suri ty to 08-31 reaction( Aneta adverse 00:00: s): of reaction 00 Anaphylax Medic in s to is, e food Unknown Ziprasid Propensi Active Other [facility] one ty to 08-31 reaction( [facility] adverse 00:00: s): of oride reaction 00 altered Medicin s to mental e drug status, agitation , extrapyra dimal symtomsOt her reaction( s): altered mental status, agitation Other reaction( s): altered mental status, agitation Strawber Propensi Active Hives 2019-0 Other [facility] ry ty to 6-14 reaction( College (Diagnos adverse 00:00: s): of tic) reaction 00 Anaphylax Medic in s to isThroat e drug swells CODEINE Allergy Active [place] [address] [facility] 6-14 [facility] 00[facility]: Medical 00 Center IODINATE Allergy Active High Anaphylaxis 2019-[address] D 6-14 [facility] CONTRAST 00:00: Medical MEDIA 00 Center KIWI Allergy Active High Anaphylaxis 2019-[address] [facility] (ACTINID 6-14 [facility] IA 00:00: Medical CHINENSI 00 Center S) MORPHINE Allergy Active High Anaphylaxis 2018-[address] 6[facility]14 [facility] 00:[facility]: Medical 00 Center QUETIAPI Allergy Active Med Other [facility] NE 6-14 [facility] FUMARATE 00:00: Medical 00 Center STRAWBER Allergy Active High Anaphylaxis 2019-[address] RY 6-14 [facility] 00:00: Medical 00 Center ZIPRASID Allergy Active High Other 2018-[address] ONE 6-14 [facility] MESYLATE 00:00: Medical 00 Center Codeine Propensi Active Hives 2018-[address] ty to 6-14 reaction( [facility] adverse 00:00: s): Medical reaction 00 Hives/Kevin Cente r s h Iodinate Propensi Active Anaphylaxis 2018-[address] d ty to 6-14 reaction( [facility] Contrast adverse 00:00: s): Medical Media reaction 00 Anaphylax Cente r s is Kiwi Propensi Active Anaphylaxis 2019-[address] (Actinid ty to 6-14 swells, [facility] ia adverse 00:00: per pt Medical Chinensi reaction 00 Center s) s Morphine Propensi Active Anaphylaxis 2019-[address] ty to 6-14 reaction( [facility] adverse 00:00: s): Medical reaction 00 Anaphylax Cente r s is Quetiapi Propensi Active Other (See [address] [facility] ty to Comments) 6-14 reaction( [facility] Fumarate adverse 00:00: s): Medical reaction 00 Unknown Center s Strawber Propensi Active Anaphylaxis, [address] ry ty to Hives 6-14 swells [facility] adverse 00:00: Medical reaction 00 Center s Ziprasid Propensi Active Other (See Other [facility] one ty to Comments) 6-14 reaction( [facility] Mesylate adverse 00:00: s): Medical reaction 00 altered Center s mental status, agitation Family History Family Member Diagnosis Comments Start Date Stop Date Source Natural brother Heart disease [facility] Natural father Heart disease [facility] Social History Social Habit Start Date Stop Date Quantity Comments Source History of tobacco Current smoker [facility] use [facility] Center History SDOH [facility] Alcohol Std Drinks Medica l Center History SDOH [facility] Alcohol Binge Medical Maddy [facility] History SDOH [facility] Alcohol Comment Medical C enter History [facility] Housing Places Medical Ce nter Lived Alcohol intake 2021-11-02 2021-11-[address] [facility] 00:00:00 00:00:00 non-drinker of Medical Ce nter alcohol (finding) History [facility] 2021-10-19 2021-10-[address] [facility] Housing Unable to 00:00:00 00:00:00 Medical Center Pay History [facility] 2021-10-19 2021-10-[address] [facility] Housing Homeless 00:00:00 00:00:00 [facility] Last Year Cigarettes smoked 2018-09-04 2018-09-[address] [facility] current (pack per 00:00:00 00:00:00 Medical Center day) - Reported Cigarette 2018-09-04 2018-09-[address] [facility] pack-years 00:00:00 00:00:00 [facility] Tobacco use and 2018-09-04 2018-09-[address] [facility] kes exposure 00:00:00 00:00:00 Medical Center History [facility] 2018-09-04 2018-09-[address] [facility] Alcohol Frequency 00:00:00 00:00:00 [facility] Sex Assigned At [address] [facility] kes 00:00:00 00:00:00 Medical Center Smoking Status Start Date Stop Date Source Never smoked tobacco [facility] Former smoker 2018-09-04 00:00:2018-09-04 00:00:00 [facility] Medications Ordered Filled Start Stop Current Ordering Indication Dosage Frequency Signature Comments Components Source Medication Medication Date Date Medication? Clinician (SIG) Name Name fluticasone Yes 1{spray 1 [place] by [facility] (FLONASE) 824 } Nasal Aneta 50 MCG/ACT 13:13: route. of nasal spray 43 Medicin e atorvastati 0 Yes 80mg Take 80 mg Quinn n (LIPITOR) 8-24 by mouth Sabino ege 80 MG 13:13: daily. of tablet 43 Medicin e Calcium 0 Yes Take by [facility] Acetate-Mag 8-24 mouth. Colleg e nesium Carb 13:13: of 450-200 MG 43 Medicin TABS e busPIRone 0 Yes 5mg Take 5 mg [place] [employer] (BUSPAR) 5 8-24 by mouth. Sabino ege MG tablet 13:13: of 43 Medicin e divalproex Yes 250mg Take 250 [facility] (DEPAKOTE) 8-24 mg by Aneta 250 MG EC 13:13: mouth. of tablet 43 Medicin e Lactobacill Yes 1{tbl} Take 1 [facility] us 8-24 Tablet by Aneta (FLORANEX) 13:13: mouth. of TABS 43 Medicin e loratadine Yes 10mg Take 10 mg [facility] (CLARITIN) 8-24 by mouth. Sabino ege 10 MG 13:13: of tablet 43 Medicin e lorazepam Yes .5mg Take 0.5 [facility] (ATIVAN) 8-24 mg by Aneta tablet 13:13: mouth. of 43 Medicin e Melatonin 3 0 Yes 5mg Take 5 mg [facility] MG TABS 8-24 by mouth. College 13:13: of 43 Medicin e montelukast 0 Yes 10mg Take 10 mg [facility] (SINGULAIR) 8-24 by mouth. Col lege 10 MG 13:13: of tablet 43 Medicin e fluticasone 0 Yes 1{spray 1 [place] by [facility] (FLONASE) 824 } Nasal Aneta 50 MCG/ACT 13:13: route. of nasal spray 43 Medicin e atorvastati 0 Yes 80mg Take 80 mg [facility] n (LIPITOR) 8-24 by mouth Sabino ege 80 MG 13:13: daily. of tablet 43 Medicin e Calcium 0 Yes Take by [facility] Acetate-Mag 8-24 mouth. Shaggyg dagmar nesium Carb 13:13: of 450-200 MG 43 Medicin TABS e busPIRone 0 Yes 5mg Take 5 mg [place] (BUSPAR) 5 8-24 by mouth. Sabino ege MG tablet 13:13: of 43 Medicin e divalproex 0 Yes 250mg Take 250 [facility] (DEPAKOTE) 8-24 mg by Aneta 250 MG EC 13:13: mouth. of tablet 43 Medicin e Lactobacill Yes 1{tbl} Take 1 Ba ylor us 8-24 Tablet by Aneta (FLORANEX) 13:13: mouth. of TABS 43 Medicin e loratadine Yes 10mg Take 10 mg [facility] (CLARITIN) 8-24 by mouth. Sabino ege 10 MG 13:13: of tablet 43 Medicin e lorazepam Yes .5mg Take 0.5 [facility] (ATIVAN) 8-24 mg by Aneta tablet 13:13: mouth. of 43 Medicin e Melatonin 3 Yes 5mg Take 5 mg [facility] MG TABS 8-24 by mouth. Aneta 13:13: of 43 Medicin e montelukast Yes 10mg Take 10 mg [facility] (SINGULAIR) 8-24 by mouth. Col lege 10 MG 13:13: of tablet 43 Medicin e fluticasone 0 Yes 1{spray 1 [place] by [facility] (FLONASE) 8-24 } Nasal Aneta 50 MCG/ACT 13:13: route. of nasal spray 43 Medicin e atorvastati 0 Yes 80mg Take 80 mg [facility] n (LIPITOR) 8-24 by mouth Sabino ege 80 MG 13:13: daily. of tablet 43 Medicin e Calcium 0 Yes Take by [facility] Acetate-Mag 8-24 mouth. Colleg e nesium Carb 13:13: of 450-200 MG 43 Medicin TABS e busPIRone 0 Yes 5mg Take 5 mg [place] (BUSPAR) 5 8-24 by mouth. Sabino ege MG tablet 13:13: of 43 Medicin e divalproex 0 Yes 250mg Take 250 [facility] (DEPAKOTE) 8-24 mg by College 250 MG EC 13:13: mouth. of tablet 43 Medicin e Lactobacill 2021-0 Yes 1{tbl} Take 1 [facility] us 8-24 Tablet by College (FLORANEX) 13:13: mouth. of TABS 43 Medicin e loratadine 2021-0 Yes 10mg Take 10 mg [facility] (CLARITIN) 8-24 by mouth. Sabino ege 10 MG 13:13: of tablet 43 Medicin e lorazepam 2021-0 Yes .5mg Take 0.5 [facility] (ATIVAN) 8-24 mg by College tablet 13:13: mouth. of 43 Medicin e Melatonin 3 0 Yes 5mg Take 5 mg [facility] MG TABS 8-24 by mouth. College 13:13: of 43 Medicin e montelukast Yes 10mg Take 10 mg [facility] (SINGULAIR) 8-24 by mouth. Col lege 10 MG 13:13: of tablet 43 Medicin e Mirabegron 0 2021- No 25mg Take 25 mg [facility] ER 25 MG 11-05 08-19 by mouth. Colle ge TB24 08:11: 00:00 of 33 :00 Medicin e zinc 2021-0 Yes 220mg Take 220 [facility] sulfate 8-04 mg by College (ZINCATE) 00:00: mouth. of 220 (50 Zn) 00 Medicin MG capsule e zinc 2021-0 Yes 220mg Take 220 [facility] sulfate 8-04 mg by College (ZINCATE) 00:00: mouth. of 220 (50 Zn) 00 Medicin MG capsule e zinc 2021-0 Yes 220mg Take 220 [facility] sulfate 8-04 mg by College (ZINCATE) 00:00: mouth. of 220 (50 Zn) 00 Medicin MG capsule e enoxaparin 2021-0 Yes 40mg Q24H Inject 0.[address] (LOVENOX) 8-04 mLs (40 mg Luke s 40 mg/0.4 00:00: total) Medica l mL [facility]rg [facility] usly daily. zinc 2022-0 Yes 220mg QD Take [address] [facility] sulfate 8-04 capsule [facility] (ZINCATE) 00:00: (220 mg Medic al 50 mg zinc 00 total) by Cent er (220 mg) mouth capsule daily 220mg Zn Sulfate = 50mg elemental Zn. Enoxaparin 2021- No 40mg Inject 40 [facility] Sodium 40 8-04 08-24 mg into Colleg e MG/0.4ML 00:00: 00:00 the skin. of SOSY 00 :00 Medicin e Enoxaparin 0 2021- No 40mg Inject 40 [facility] Sodium 40 8-04 08-24 mg into Colleg e MG/0.4ML 00:00: 00:00 the skin. of SOSY 00 :00 Medicin e amLODIPine Yes 10mg QD Take [address] (NORVASC) 8-03 by mouth [facility] 10 MG 19:43: daily. Medical tablet 29 Center Lactobacill Yes 1{tbl} Q.5D Take [address] us 8-03 tablet by [facility] acidoph-L.b 19:43: mouth 2 Med ical ulgar 29 (two) Center (FLORANEX) times 1 million daily. cell Tab per tablet loratadine Yes 10mg QD Take [address] (CLARITIN) 8-03 by mouth [facility] 10 mg 19:43: daily. Medical tablet 29 Center busPIRone Yes 5mg Q.5D Take [address] (BUSPAR) 5 8-03 by mouth 2 [facility] es MG tablet 19:43: (two) Medical 29 times Center daily. divalproex Yes 250mg Q.5D Take [address] (DEPAKOTE) 8-03 mg by [facility] 250 MG EC 19:43: mouth 2 Medic al tablet 29 (two) Center times daily. melatonin 3 Yes 5mg QD Take [address] mg Tab 8-03 by mouth [facility] tablet 19:43: nightly. Medical 29 Center LORazepam Yes .5mg Take 0.[address] (ATIVAN) 8-03 mg by [facility] 0.5 MG 19:43: mouth Medical tablet 29 every 6 Center (six) hours as needed for Anxiety. montelukast Yes 10mg QD Take [address] [facility] (Singulair) 10-20 by mouth Luke s 10 mg 19:43: nightly. Medical tablet 29 [facility] zinc 2021- No 220mg QD Take [address] gluconate 10-20 mg by [facility] 50 mg 14:40: 00:00 mouth Medical tablet 47 :00 daily. [facility] senna 2021- No 1{tbl} QD Take [address] (SENOKOT) 10-20 tablet by Luke s 8.6 mg 14:22: 00:00 mouth Medical tablet 32 :00 daily. [facility] bacitracin 2021- No 1{packe Q.5D Apply [address] [facility] 500 10-20 t} packet [facility] unit/gram 00:00: 23:59 topically Me dical OiPk packet 00 :00 2 (two) Cente r times daily for 14 days Until plastics follow up visit. Bacitracin BID to incisions. acetaminoph No 650mg Take [address] en 10-20 08-10 tablets [facility] (TYLENOL) 00:00: 23:59 (650 mg Medi satish 325 MG 00 :00 total) by Center tablet mouth every 6 (six) hours as needed for up to 7 days. tamsulosin 2021- No .4mg QD Take [address] (FLOMAX) 10-2008 capsule [facility] 0.4 mg Cap 00:00: 23:59 (0.4 mg Med ical 24 hr 00 :00 total) by Center capsule mouth daily for 5 days. fluticasone Yes 1{spray 1 [place] by [facility] (FLONASE) 04-16 } Nasal College 50 MCG/ACT 12:25: route. of nasal spray 28 Medicin e Mirabegron Yes 25mg Take 25 mg [facility] ER 25 MG 04-16 by mouth. Colleg e TB24 12:25: of 28 Medicin e atorvastati Yes 80mg Take 80 mg [facility] n (LIPITOR) 04-16 by mouth Sabino ege 80 MG 12:25: daily. of tablet 28 Medicin e Calcium 2022-0 Yes Take by [facility] Acetate-Mag 1-28 mouth. Colleg e nesium Carb 12:25: of 450-200 MG 28 Medicin TABS e Multiple 2021-2022- No 1{tbl} Take 1 [facility] Vitamins-Mi 1-20 -21 Tablet by [employer] 00:00: 05:59 mouth of (ONCOVITE) 00 :00 daily. Medicin TABS e thiamine 2021-2022- No 100mg Take 100 [place] k[place]li 100 MG 1-20 -21 mg by College tablet 00:00: 05:59 mouth. of 00 :00 Medicin e Multiple 2022- No 1{tbl} Take 1 [facility] Vitamins-Mi 1-20 - Tablet by [employer] 00:00: 05:59 mouth of (ONCOVITE) 00 :00 daily. Medicin TABS e thiamine 2022- No 100mg Take 100 [place] k[place]li 100 MG 1-20 - mg by [employer] tablet 00:00: 05:59 mouth. of 00 :00 Medicin e Multiple 2022- No 1{tbl} Take 1 [facility] [facility] Vitamins-Mi -20 - Tablet by [employer] 00:00: 05:59 mouth of (ONCOVITE) 00 :00 daily. Medicin TABS e thiamine 2022- No 100mg Take 100 [place] k[place]li 100 MG 1-20 -21 mg by College tablet 00:00: 05:59 mouth. of 00 :00 Medicin e multivitami 2022- No 1{tbl} QD Take [address] n 04-08- tablet by [facility] (THERAGRAN) 00:00: 23:59 mouth Medi satish tablet 00 :00 daily. Center thiamine 2022- No 100mg QD Take 1 [facility] 100 MG 04-08- tablet [employer] tablet 00:00: 23:59 (100 mg Medical 00 :00 total) by Center mouth daily. ertapenem 2021- No 1g Q24H Inject [address] (INVanz) 1 04-08 intravenou Vilma kes g in NS 100 00:00: 23:59 sly daily Medical mL (V2B) 00 :00 for 33 Center IVPB days. polyethylen 2021- No 17g QD Take [address] [facility] e glycol 04-08 by mouth [facility] (GLYCOLAX) 00:00: 23:59 daily for M josé antonio 17 gram 00 :00 3 days. Center packet senna-docus 2022- No 1{tbl} Take 1 [facility] ate 04-07 Tablet by Aneta (PERICOLACE 00:00: 05:59 mouth. of ) 8.6-50 MG 00 :00 Medicin per tablet e senna-docus 2022- No 1{tbl} Take 1 [facility] ate 04-07 Tablet by Aneta (PERICOLACE 00:00: 05:59 mouth. of ) 8.6-50 MG 00 :00 Medicin per tablet e senna-docus 2022- No 1{tbl} Take 1 [facility] ate 04-07 Tablet by Aneta (PERICOLACE 00:00: 05:59 mouth. of ) 8.6-50 MG 00 :00 Medicin per tablet e sotaloL 2022- No 60mg Take 0.5 [facility] (BETAPACE) 04-07 tablets [facility] 120 MG 00:00: 23:59 (60 mg Medical tablet 00 :00 total) by Center mouth every 12 (twelve) hours. senna-docus 2022- No 1{tbl} Q.5D Take [address] ate 04-07 tablet by [facility] (SENOKOT S) 00:00: 23:59 mouth 2 Me dical 8.6-50 mg 00 :00 (two) Center per tablet times daily. enoxaparin 2021- No 40mg Q24H Inject 0.[address] (LOVENOX) 04-07 08-03 mLs (40 mg Cl[facility] es 40 mg/0.4 00:00: 00:00 total) Medic al mL Syrg 00 :00 subcutaneo Center usly daily. heparin 2021- No 20U 2 mLs ([address] (PF) 04-07 08-03 Units [facility] injection 00:00: 00:00 total) by Me dical 10 units/mL 00 :[address] route every 8 (eight) hours. heparin 2021-2021- No 20U 2 mLs ([address] (PF) 04-07 08-03 Units [facility] injection 00:00: 00:00 total) by Me dical 10 units/mL 00 :[address] route as needed (for PICC Lines). hydrALAZINE 2021- No 5mg Inject [facility] (APRESOLINE 04-07- 0.25 mLs Clair es ) 20 mg/mL 00:00: 00:00 (5 mg Medic al injection 00 :00 total) Center intravenou sly every 4 (four) hours as needed. labetaloL 2021- No 10mg Inject [address] (NORMODYNE, 04-07-03 mLs (10 mg L ukes TRANDATE) 00:00: 00:00 total) Medic al 20 mg/4 mL 00 :[address] (5 mg/mL) sly every Syrg 15 (fifteen) minutes as needed. ondansetron 2021- No 4mg Inject [address] (ZOFRAN) 4 04-07-03 mLs (4 mg [facility] es mg/2 mL 00:00: 00:00 total) Medical injection 00 :00 intravenou Cent er sly every 6 (six) hours as needed. sodium 2021-2021- No 10mL [facility]07 08[facility]03 [facility] 0.9%, NS, 00:00: 00:00 intravenou M edical injection 00 :00 sly every Cente r 8 (eight) hours. sodium 2021-0 2021- No 10mL 10 [facility] chloride 04-07-03 Intracathe [facility] 0.9%, NS, 00:00: 00:00 ter route Me dical injection 00 :00 as needed Cente r (for PICC Lines). sodium 2021-0 2021- No 5mL [address] [facility] chloride 04-07-03 Intracathe Luke [facility] 0.9%, NS, 00:00: 00:00 ter route Me dical injection 00 :00 as needed Cente r (for PICC Lines). sodium 2021- No 5mL [address] [facility] chloride 04-07 Intracathe Luke [facility] 0.9%, NS, 00:00: 00:00 ter route Me dical injection 00 :00 every 8 Center (eight) hours. bisacodyL 2021- No 10mg Take 2 [facility] (DULCOLAX) 04-07 tablets [facility] 5 mg EC 00:00: 23:59 (10 mg Medical tablet 00 :00 total) by Center mouth daily as needed for Constipati on for up to 30 days. bisacodyL 2021- No 10mg Place [address] [facility] (DULCOLAX) 04-07 suppositor Vilma kes 10 mg 00:00: 23:59 y (10 mg Medical suppository 00 :00 total) Center rectally daily as needed for up to 10 days. HYDROcodone 2021- No 1{tbl} Take [address] -acetaminop 04-07 tablet by Vilma levine hen (NORCO 00:00: 23:59 mouth Medic al 5-325) 00 :00 every 6 Center 5-325 mg (six) per tablet hours as needed (moderate to severe pain) for up to 10 days. Max Daily Amount: 4 tablets aluminum & 2021- No 30mL Take [address] [facility] magnesium 04-07 mLs by [facility] hydroxide-s 00:00: 23:59 mouth Medi satish imethicone 00 :00 every 6 Center (MAALOX (six) PLUS) hours as 400-400-40 needed for mg/5 mL up to 10 suspension days. ondansetron 2021- No 4mg Take [address] [facility] (ZOFRAN-ODT 04-07 tablet (4 Vilma kes ) 4 MG 00:00: 23:59 mg total) Medic al disintegrat 00 :00 by mouth Cent er ing tablet every 6 (six) hours as needed for up to 7 days. sodium 2021- No 10mL 10 mLs by [facility] chloride 04-07 Intra-Cath [facility] 0.9%, NS, 00:00: 23:59 eter route M edical injection 00 :00 once for 1 Cent er dose. hydrALAZINE 2020-03 No 10mg Take [address] [facility] (APRESOLINE 05-16 tablet (10 L ukes ) 10 MG 00:00: 23:59 mg total) Medi satish tablet 00 :00 by mouth Center every 12 (twelve) hours as needed (for SBP>140) for up to 30 days. losartan 2020-03 No 50mg QD Take [address] (COZAAR) 50 04-30 by mouth Clair es MG tablet 10:59: 00:00 daily. Medic al 41 :00 [facility] mirabegron 2020-03 No 25mg QD Take [address] [facility] (MYRBETRIQ) 04-30 by mouth Clair es 25 mg Tb24 10:59: 00:00 daily. Medi satish ER tablet 41 :00 Crystal fluticasone 2020-03- No 1{spray QD [address] [facility] propionate 04-30 } Nasal [facility] (FLONASE) 10:59: 00:00 route Medica l 50 41 :00 daily. Center mcg/actuati on nasal spray acetaminoph 2020-03 No 650mg Take [address] en 04-30 tablets [facility] (TYLENOL) 00:00: 00:00 (650 mg Medi satish 325 MG 00 :00 total) by Center tablet mouth every 4 (four) hours as needed for up to 360 days. fluticasone 2020-0 Yes 1{spray 1 [place] by [facility] (FLONASE) 04-17 } Nasal [facility] 50 MCG/ACT 17:28: route. of nasal spray 46 Medicin e Mirabegron 2020-0 Yes 25mg Take 25 mg [facility] 04-17 by mouth. College (MYRBETRIQ) 17:28: of 25 MG TB24 46 Medicin e atorvastati 2020-0 Yes 80mg Take 80 mg [facility] n (LIPITOR) 04-17 by mouth Sabino ege 80 MG 17:28: daily. of tablet 46 Medicin e Calcium 2020-0 Yes Take by [facility] Acetate-Mag 04-17 mouth. Colleg e nesium Carb 17:28: of 450-200 MG 46 Medicin TABS e amlodipine Yes 10mg Take 10 mg [facility] (NORVASC) 904 by mouth. Colle ge 10 MG 00:00: of tablet 00 Medicin e amlodipine 0 Yes 10mg Take 10 mg [facility] (NORVASC) 904 by mouth. Colle ge 10 MG 00:00: of tablet 00 Medicin e losartan Yes AT BEDTIME [place] [employer] (COZAAR) 50 9-04 College MG tablet 00:00: of 00 Medicin e amlodipine 0 Yes 10mg Take 10 mg [facility] (NORVASC) 904 by mouth. Colle ge 10 MG 00:00: of tablet 00 Medicin e amlodipine Yes 10mg Take 10 mg [facility] (NORVASC) 9 by mouth. Colle ge 10 MG 00:00: of tablet 00 Medicin e losartan Yes AT BEDTIME [place] [employer] (COZAAR) 50 9-04 College MG tablet 00:00: of 00 Medicin e amlodipine Yes 10mg Take 10 mg [facility] (NORVASC) 11-21 by mouth. Colle ge 10 MG 00:00: of tablet 00 Medicin e sotalol 2018-2022- No 60mg Take 60 mg [place] [employer] (BETAPACE) 11-21 by mouth. Col lege 120 MG 00:00: 05:59 of tablet 00 :00 Medicin e sotalol 2018-2022- No 60mg Take 60 mg [place] (BETAPACE) 11-21 by mouth. Col lege 120 MG 00:00: 05:59 of tablet 00 :00 Medicin e sotalol 2022- No 60mg Take 60 mg [place] (BETAPACE) 11-21 by mouth. Col lege 120 MG 00:00: 05:59 of tablet 00 :00 Medicin e losartan 2018-2021- No AT BEDTIME [facility] (COZAAR) 50 9-04 08-19 College MG tablet 00:00: 00:00 of 00 :00 Medicin e sotalol AF 2018-2020- No 60mg Q.5D Take [address] [facility] (BETAPACE) 4-13 12-27 by mouth 2 Vilma kes 120 MG 00:00: 00:00 (two) Medical tablet 00 :00 times Center daily . clopidogrel Yes 1{tbl} 1 Tab. [facility] (PLAVIX) 75 2-12 College MG Tablet 00:00: of 00 Medicin e clopidogrel Yes 1{tbl} 1 Tab. [facility] (PLAVIX) 75 2-12 College MG Tablet 00:00: of 00 Medicin e atorvastati Yes 80mg QD Take [address] [facility] n (LIPITOR) 2-12 by mouth Luke s 80 MG 00:00: daily. Medical tablet 00 [facility] clopidogrel 2021- No 1{tbl} 1 Tab. [facility] (PLAVIX) 75 05-01 08-19 College MG Tablet 00:00: 00:00 of 00 :00 Medicin e clopidogrel 2020- No 75mg QD Take [address] [facility] (PLAVIX) 75 05-01- by mouth Clair es mg tablet 00:00: 00:00 daily. Medic al 00 :00 [facility] MAGNESIUM 2020- No 420mg QD Take [address] OXIDE ORAL 04-27 mg by [facility] 00:00: 00:00 mouth Medical 00 :00 daily . [facility] omeprazole 2020- No 20mg QD Take [address] [facility] (PRILOSEC) 07-18 by mouth Luke s 20 MG 00:00: 00:00 daily. Medical capsule 00 :00 Crystal Vital Signs Vital Name Observation Time Observation Value Comments Source Systolic blood 2021-11-10 18:12:00 146 mm[Hg] [facility] pressure Medicine Diastolic blood 2021-11-10 18:12:00 66 mm[Hg] [facility] of pressure Medicine Heart rate 2021-11-10 18:12:00 83 /min [facility] Body height 2021-11-10 18:12:00 175.3 cm [facility] Body weight 2021-11-10 18:12:00 78.926 kg [facility] BMI 2021-11-10 18:12:00 25.70 [facility]2 [facility] Respiratory rate 2021-11-10 16:22:00 16 /min [facility] Body height 2021-11-10 16:22:00 175.3 cm [facility] Body weight 2021-11-10 16:22:00 78.926 kg [facility] BMI 2021-11-10 16:22:00 25.70 kg/m2 [facility] Oxygen saturation in 2021-11-10 16:22:00 96 /min [facility] Arterial blood by [facility] Pulse oximetry Systolic blood 2021-11-10 16:22:00 159 mm[Hg] [facility] pressure Medicine Diastolic blood 2021-11-10 16:22:00 72 mm[Hg] [facility] Medicine Heart rate 2021-11-10 16:22:00 75 /min [facility] Body temperature 2021-11-10 16:22:00 36.28 Agatha [facility] Systolic blood 2021-11-05 13:09:00 121 mm[Hg] [facility] Medicine Diastolic blood 2021-11-05 13:09:00 67 mm[Hg] [facility] Medicine Heart rate 2021-11-05 13:09:00 70 /min [facility] Body temperature 2021-11-05 13:09:00 36.44 Agatha [facility] Body height 2021-11-05 13:09:00 175.3 cm [facility] Body weight 2021-11-05 13:09:00 74.844 kg [facility] BMI 2021-11-05 13:09:00 24.37 kg/m2 [facility] HEIGHT 2021-11-02 15:46:00 175.3 cm WEIGHT 2021-11-02 15:46:00 74.844 kg HEIGHT 2021-11-02 15:46:00 175.3 cm WEIGHT 2021-11-02 15:46:00 74.844 kg HEIGHT 2021-11-02 15:46:00 175.3 cm WEIGHT 2021-11-02 15:46:00 74.844 kg HEIGHT 2021-10-18 07:00:00 175.3 cm WEIGHT [...] kg Systolic blood 2021-04-16 18:17:00 136 mm[Hg] [facility] pressure Medicine Diastolic blood 2021-04-16 18:17:00 71 mm[Hg] [facility] pressure Medicine Heart rate 2021-04-16 18:17:00 72 /min [facility] Body temperature 2021-04-16 18:17:00 36.17 Agatha [facility] Respiratory rate 2021-04-16 18:17:00 16 /min [facility] Body height 2021-04-16 18:17:00 175.3 cm [facility] Body weight 2021-04-16 18:17:00 74.844 kg [facility] BMI 2021-04-16 18:17:00 24.37 kg/m2 [facility] Oxygen saturation in 2021-04-16 18:17:00 97 /min [facility] Arterial blood by Medicine Pulse oximetry HEIGHT [...] kg Systolic blood 2019-04-17 17:28:00 158 mm[Hg] [facility] pressure Medicine Diastolic blood 2019-04-17 17:28:00 78 mm[Hg] [facility] Medicine Heart rate 2019-04-17 17:28:00 69 /min [facility] Body weight 2019-04-17 17:28:00 78.472 kg [facility] Diastolic blood 2021-11-02 19:00:00 72 mm[Hg] [facility] Heart rate 2021-11-02 19:00:00 79 /min [facility] Body temperature 2021-11-02 19:00:00 36.83 Agatha [facility] Respiratory rate 2021-11-02 19:00:00 18 /min [facility] Oxygen saturation in 2021-11-02 19:00:00 98 /min [facility] Arterial blood by Medical Ce nter Pulse oximetry Systolic blood 2021-11-02 19:00:00 135 mm[Hg] [facility] Body height 2021-11-02 15:46:00 175.3 cm [facility] Body weight 2021-11-02 15:46:00 74.844 kg [facility] BMI 2021-11-02 15:46:00 24.37 kg/m2 [facility] Procedures Procedure Date / Time Performing Clinician Source Performed AMB REF TO PT EXTERNAL 2021-11-10 14:21:31 [facility] [address] BRAIN WITHOUT IV CONTRAST 2021-11-10 11:13:00 Chi Stone [facility] SARS-COV2/RT-PCR ([facility] & REF 2021-11-02 18:00:00 Brennan Sampson [facility] LABS) [facility] CBC (HEMOGRAM ONLY) 2021-11-02 18:00:00 Pradip Salmon [facility] BASIC METABOLIC PANEL 2021-11-02 18:00:00 Pradip Salmon [facility] MAGNESIUM 2021-11-02 18:00:00 Pradip Salmon [facility] PHOSPHORUS 2021-11-02 18:00:00 Luis Antonio [facility] PT/APTT 2021-11-02 18:00:00 [facility] TYPE AND SCREEN, AUTOMATED 2021-11-02 18:00:00 Luis Antonio [facility] CT BRAIN WITHOUT IV CONTRAST 2021-11-02 17:44:00 Brennan Sampson [facility] SARS-COV2/RT-PCR ([facility] & REF 2021-10-20 13:36:[address] [facility] BASIC METABOLIC PANEL 2021-10-19 04:40:00 Schwartz [facility] MAGNESIUM 2021-10-19 04:40:00 [facility] PHOSPHORUS 2021-10-19 04:40:00 Efren [facility] CBC (HEMOGRAM ONLY) 2021-10-19 04:40:00 Efren [facility] CRANIOPLASTY 2021-10-18 10:00:00 Chi Stone [facility] ADJACENT TISSUE TRANSFER, 2021-10-18 10:00:00 Gilma Valdivia [facility] HEAD AND NECK REGION Medical Maddy ter DEBRIDEMENT, BONE 2021-10-18 10:00:00 Jose Manuel Valdivia [facility] TYPE AND SCREEN, AUTOMATED 2021-10-18 08:15:00 Chi Stone [facility] CT BRAIN WITHOUT IV CONTRAST 2021-08-18 14:03:00 Sylvester Stone [facility] IRON, TIBC, % SAT. (WITHOUT 2021-04-07 03:15:00 [facility] FERRITIN) Medical Crystal FERRITIN 2021-04-07 03:15:00 [facility] VITAMIN B12 AND FOLATE 2021-04-07 03:15:00 [facility] W/[facility]T COUNT & AUTO 2021-04-07 03:14:00 [facility] BASIC METABOLIC PANEL 2021-04-07 03:14:00 [facility] MAGNESIUM 2021-04-07 03:14:00 [facility] CBC W/PLT COUNT & AUTO 2021-04-07 03:14:00 [facility] CBC W/PLT COUNT & AUTO 2021-04-06 03:42:00 [facility] BASIC METABOLIC PANEL 2021-04-06 03:42:00 [facility] MAGNESIUM 2021-04-06 03:42:00 [facility] CBC W/PLT COUNT & AUTO 2021-04-06 03:42:00 [facility] XR CHEST PA OR AP 1 VIEW IN 2021-04-05 15:16:00 Kervin Bradley [facility] CBC W/PLT COUNT & AUTO 2021-04-05 04:46:00 [facility] BASIC METABOLIC PANEL 2021-04-05 04:46:00 [facility] MAGNESIUM 2021-04-05 04:46:[address] [facility] W/PLT COUNT & AUTO 2021-04-05 04:46:00 [facility] CBC W/PLT COUNT & AUTO 2021-04-04 03:26:00 [facility] BASIC METABOLIC PANEL 2021-04-04 03:26:00 [facility] MAGNESIUM 2021-04-04 03:26:00 [facility] CBC W/PLT COUNT & AUTO 2021-04-04 03:26:[address] [facility] CT BRAIN WITHOUT IV CONTRAST 2021-04-03 10:45:00 Kervin Bradley [facility] CBC W/PLT COUNT & AUTO 2021-04-03 05:04:00 [facility] BASIC METABOLIC PANEL 2021-04-03 05:04:[address] [facility] MAGNESIUM 2021-04-03 05:04:[address] [facility] PHOSPHORUS 2021-04-03 05:04:00 Deneen Cardenas [facility] CBC W/PLT COUNT & AUTO 2021-04-03 05:04:[address] [facility] CBC (HEMOGRAM ONLY) 2021-04-02 16:09:00 Jesus Valentine [facility] CBC W/PLT COUNT & AUTO 2021-04-02 03:29:00 [facility]IC PANEL 2021-04-02 03:29:[address] [facility] MAGNESIUM 2021-04-02 03:29:00 [facility] 2021-04-02 03:29:00 Theresa [facility] CBC W/PLT COUNT & AUTO 2021-04-02 03:29:00 Demian [facility] VANCOMYCIN LEVEL, TROUGH 2021-04-01 20:00:00 Ofoegbuna, Ifoma I [facility] HIGH SENSITIVITY TROPONIN I 2021-04-01 16:24:00 Theresa [facility] HC LAB HIV-1 AG W/HIV-1&2 AB 2021-04-01 16:24:00 Hanane Ordonez [facility] HEPATITIS PANEL, ACUTE 2021-04-01 16:24:00 Hanane Ordonezabel C [facility] CBC W/PLT COUNT & AUTO 2021-04-01 03:36:00 [facility] BASIC METABOLIC PANEL 2021-04-01 03:36:00 Gagan [facility] MAGNESIUM 2021-04-01 03:36:00 Gagan [facility] PHOSPHORUS 2021-04-01 03:36:00 Theresa [facility] CBC W/PLT COUNT & AUTO 2021-04-01 03:36:00 Demian [facility] CT BRAIN WITHOUT IV CONTRAST 2021-03-31 17:35:00 Hanane Ordonez [facility] TISSUE EXAM 2021-03-31 14:55[facility]00 [facility] 2021-03-31 14:52:51 Chi Stone [facility] + GRAM STAIN [facility] ANAEROBIC CULTURE 2021-03-31 14:52:51 [facility] CULTURE + SMEAR 2021-03-31 14:52:51 Chi Stone [facility] (NON-SPUTUM) [facility] FUNGUS CULTURE + SMEAR 2021-03-31 14:52:51 Chase, [facility] SURGICALLY OBTAINED CULTURE 2021-03-31 14:49:39 Chase, [facility] + GRAM STAIN [facility] ANAEROBIC CULTURE 2021-03-31 14:49:39 Chase, [facility] CULTURE + SMEAR 2021-03-31 14:49:39 Chase, [facility] (NON-SPUTUM) [facility] FUNGUS CULTURE + SMEAR 2021-03-31 14:49:39 Chase, [facility] SPIN/CONCENTRATION CHARGE 2021-03-31 14:49:00 Chase, [facility] SURGICALLY OBTAINED CULTURE 2021-03-31 13:49:52 Chase, [facility] + GRAM STAIN [facility] ANAEROBIC CULTURE 2021-03-31 13:49:52 Chase, [facility] [employer] CULTURE + SMEAR 2021-03-31 13:49:52 Chase, [facility] (NON-SPUTUM) [facility] FUNGUS CULTURE + SMEAR 2021-03-31 13:49:52 Chase, [facility] SURGICALLY OBTAINED CULTURE 2021-03-31 13:35:11 Chase, [facility] + GRAM STAIN [facility] ANAEROBIC CULTURE 2021-03-31 13:35:11 Chase, [facility] [employer] CULTURE + SMEAR 2021-03-31 13:35:11 Chase, [facility] (NON-SPUTUM) [facility] FUNGUS CULTURE + SMEAR 2021-03-31 13:35:11 Chase, [facility] FUNGUS CULTURE + SMEAR 2021-03-31 13:32:09 Chase, [facility] [employer] CULTURE + SMEAR 2021-03-31 13:32:09 Chase, [facility] (NON-SPUTUM) [facility] ANAEROBIC CULTURE 2021-03-31 13:32:09 Chase, [facility] SURGICALLY OBTAINED CULTURE 2021-03-31 13:32:09 Chase, Chi Kylie nguyen [facility] + GRAM STAIN [facility] SPIN/CONCENTRATION CHARGE 2021-03-31 13:32:00 Chase Chi Espinalil [facility] CRANIOTOMY 2021-03-31 12:21:00 Chi Stone [facility] BLOOD CULTURE 2021-03-31 11:51:00 Kervin Bradley [facility] TYPE AND SCREEN, AUTOMATED 2021-03-31 11:51:00 Kervin Bradley [facility] SARS-COV2/RT-PCR ([facility] & REF 2021-03-31 11:29:00 Kervin Bradley [facility] LABS) [facility] MR BRAIN WITH & WITHOUT IV 2021-03-31 09:10:00 Kervin Bradley [facility] CONTRAST [facility] CBC W/PLT COUNT & AUTO 2021-03-31 01:01:[address] [facility] COMPREHENSIVE METABOLIC 2021-03-31 01:01:00 Kaila Souza [facility] APTT 2021-03-31 01:01:00 Kaila Souza [facility] PROTHROMBIN TIME/INR 2021-03-31 01:01:00 Kaila Souza [facility] C-REACTIVE PROTEIN 2021-03-31 01:01:00 Gian Masters [facility] CBC W/PLT COUNT & AUTO 2021-03-31 01:01:[address] [facility] BASIC METABOLIC PANEL 2021-03-15 04:15:00 Dougie Edmonds [facility] POCT-GLUCOSE METER 2021-03-14 11:02:00 Deisy [address] [facility] BRAIN WITHOUT IV CONTRAST 2021-03-14 10:41:[address] [facility] SARS-COV2/RT-PCR ([facility] & REF 2021-03-14 05:55:[address] [facility] PROTHROMBIN TIME/INR 2021-03-14 05:53:00 Waleska Eubanks [facility] POCT-GLUCOSE METER 2021-03-14 05:53:00 Deisy Dey [facility] TYPE AND SCREEN, AUTOMATED 2021-03-14 05:53:00 Waleska Eubanks [facility] BASIC METABOLIC PANEL 2021-03-14 03:50:00 ShawnDeneen waters Mitchell [facility] MAGNESIUM 2021-03-14 03:50:00 ShawnDeneen waters [facility] PHOSPHORUS 2021-03-14 03:50:00 Shawn, [facility] CBC W/PLT COUNT & AUTO 2021-03-14 03:50:00 Deneen Escobar [facility] THROMBOELASTOGRAPH (TEG) 2021-03-14 03:50:00 Kolton Dfufy [facility] CBC W/PLT COUNT & AUTO 2021-03-14 03:50:00 Deneen Escobar [facility] XR CHEST 1 VIEW PORTABLE / 2021-03-14 03:47:00 Waleska Eubanks [facility] EKG-SCANNED 2021-03-14 00:00:00 Amanda Winslow [facility] POCT-GLUCOSE METER 2021-02-27 12:47:00 Doyle Colon [facility] BASIC METABOLIC PANEL 2021-02-27 03:12:00 Doyle Colon [facility] CBC W/PLT COUNT & AUTO 2021-02-27 03:12:[address] [facility] HEMOGLOBIN A1C 2021-02-27 03:12:00 Doyle Colon [facility] CBC W/PLT COUNT & AUTO 2021-02-27 03:12:00 Doyle Colon [facility] PREPARE LEUKO-REDUCED 2021-02-26 23:55:00 Huber Casillas [facility] POCT-GLUCOSE METER 2021-02-26 17:59:00 Jelani [facility] POCT-GLUCOSE METER 2021-02-26 12:00:00 Jelani [facility] POCT-GLUCOSE METER 2021-02-26 06:22:00 [facility] CBC W/PLT COUNT & AUTO 2021-02-26 03:28:[address] [place] [address] [facility] CBC W/PLT COUNT & AUTO 2021-02-26 03:28:00 [facility] BASIC METABOLIC PANEL 2021-02-26 03:24:00 [facility] MAGNESIUM 2021-02-26 03:24:00 [facility] PHOSPHORUS 2021-02-26 03:24:00 [facility] POCT-GLUCOSE METER 2021-02-25 23:54:00 Jelani Loan [facility] CT BRAIN WITHOUT IV CONTRAST 2021-02-25 14:25:[address] [facility] POCT-GLUCOSE METER 2021-02-25 11:55:00 [facility] TRANSFUSE LEUKO-REDUCED 2021-02-25 09:40:00 Huber Casillas [facility] CRANIECTOMY OR CRANIOTOMY, 2021-02-25 08:33:00 Chi Stone [facility] FOR HEMATOMA EVACUATION [facility] CT BRAIN WITHOUT IV CONTRAST 2021-02-25 07:28:00 Moncho Morris [facility] SARS-COV2/RT-PCR ([facility] & REF 2021-02-25 06:20:[address] [facility] POCT-GLUCOSE METER 2021-02-25 05:48:00 [facility] BASIC METABOLIC PANEL 2021-02-25 03:34:[facility] MAGNESIUM 2021-02-25 03:34[facility] PHOSPHORUS 2021-02-25 03:34:00 [facility] CBC (HEMOGRAM ONLY) 2021-02-25 03:34:00 [facility] POCT-GLUCOSE METER 2021-02-25 01:04:00 Jelani Loan [facility] ECG 12-LEAD 2021-02-24 22:35:02 Unknown, Hl7 Doctor [facility] TYPE AND SCREEN, AUTOMATED 2021-02-24 21:27:00 [facility] HEPATIC FUNCTION PANEL 2021-02-24 21:26:00 [facility] PROTHROMBIN TIME/INR 2021-02-24 21:26:00 [facility] APTT 2021-02-24 21:26:00 [facility] LACTIC ACID, ARTERIAL 2021-02-24 21:26:[address] [facility] PROCALCITONIN 2021-02-24 21:26:00 [facility] XR CHEST 1 VIEW PORTABLE / 2021-02-24 21:22:[address] [facility] RAPID DRUG SCREEN, URINE 2021-02-24 21:22:00 [facility] URINALYSIS WITH MICROSCOPIC 2021-02-24 21:22:00 [facility] IF INDICATED [facility] URINALYSIS MICROSCOPIC 2021-02-24 21:22:00 [facility] Plan of Care Planned Activity Planned Date Details Comments Source Future Scheduled 2021-11-[address] [facility] Test 00:00:00 (#1) [code = Medical Center INFLUENZA VACCINE (#1)] Future Scheduled 2021-11-11 COVID-19 Vaccine [facility] Test 08:10:12 (#1) [code = of Medicine COVID-19 Vaccine (#1)] Future Scheduled 2021-11-11 Pneumococcal 65+ (1 [employer] Test 08:10:12 - PCV) [code = of Medicine Pneumococcal 65+ (1 - PCV)] Future Scheduled 2021-11-11 TETANUS SHOT (ADULT) [place] [employer] Test 08:10:12 [code = TETANUS SHOT of Medi cine (ADULT)] Future Scheduled 2021-11-11 ZOSTER VACCINE (1 of [place] [employer] Test 08:10:12 2) [code = ZOSTER of Medicin e VACCINE (1 of 2)] Future Scheduled 2021-11-11 MEDICARE AWV [facility] [employer] Test 08:10:12 (Initial) [code = of Medicin e MEDICARE AWV (Initial)] Future Scheduled 2021-11-11 FLU VACCINE > 6 [facility] [employer] Test 08:10:12 MONTHS [code = FLU of Medici ne VACCINE > 6 MONTHS] Future Scheduled 2021-11-11 BMI FOLLOW UP PLAN [employer] Test 08:10:12 [code = BMI FOLLOW of Medici ne UP PLAN] Future Scheduled 2021-11-11 FALL SCREEN [code = [employer] Test 08:10:12 FALL SCREEN] of Medicine Future Scheduled 2021-11-11 COVID-19 Vaccine [facility] [employer] Test 08:10:12 (#1) [code = of Medicine COVID-19 Vaccine (#1)] Future Scheduled 2021-11-11 Pneumococcal 65+ (1 [employer] Test 08:10:12 - PCV) [code = of Medicine Pneumococcal 65+ (1 - PCV)] Future Scheduled 2021-11-11 TETANUS SHOT (ADULT) [place] [employer] Test 08:10:12 [code = TETANUS SHOT of Medi cine (ADULT)] Future Scheduled 2021-11-11 ZOSTER VACCINE (1 of [place] [employer] Test 08:10:12 2) [code = ZOSTER of Medicin e VACCINE (1 of 2)] Future Scheduled 2021-11-11 MEDICARE AWV [facility] [employer] Test 08:10:12 (Initial) [code = of Medicin e MEDICARE AWV (Initial)] Future Scheduled 2021-11-11 FLU VACCINE > 6 [facility] [employer] Test 08:10:12 MONTHS [code = FLU of Medici ne VACCINE > 6 MONTHS] Future Scheduled 2021-11-11 BMI FOLLOW UP PLAN [employer] Test 08:10:12 [code = BMI FOLLOW of Medici ne UP PLAN] Future Scheduled 2021-11-11 FALL SCREEN [code = [employer] 08:10:12 FALL SCREEN] of Medicine Future Scheduled 2021-11-10 BMI FOLLOW UP PLAN [employer] Test 14:23:07 [code = BMI FOLLOW of Medici ne UP PLAN] Future Scheduled 2021-11-10 COVID-19 Vaccine [employer] Test 14:22:34 (#1) [code = of Medicine COVID-19 Vaccine (#1)] Future Scheduled 2021-11-10 Pneumococcal 65+ (1 [employer] Test 14:22:34 - PCV) [code = of Medicine Pneumococcal 65+ (1 - PCV)] Future Scheduled 2021-11-10 TETANUS SHOT (ADULT) [place] [employer] Test 14:22:34 [code = TETANUS SHOT of Medi cine (ADULT)] Future Scheduled 2021-11-10 ZOSTER VACCINE (1 of [place] [employer] Test 14:22:34 2) [code = ZOSTER of Medicin e VACCINE (1 of 2)] Future Scheduled 2021-11-10 MEDICARE AWV [facility] [employer] 14:22:34 (Initial) [code = of Medicin e MEDICARE AWV (Initial)] Future Scheduled 2021-11-10 FLU VACCINE > 6 [facility] [employer] Test 14:22:34 MONTHS [code = FLU of Medici ne VACCINE > 6 MONTHS] Future Scheduled 2021-11-10 FALL SCREEN [code = [employer] 14:22:34 FALL SCREEN] of Medicine Future Scheduled 2021-04-16 COVID-19 Vaccine (1) [place] [employer] Test 13:24:17 [code = COVID-19 of Medicine Vaccine (1)] Future Scheduled 2021-04-16 TETANUS SHOT (ADULT) [place] [employer] Test 13:24:17 [code = TETANUS SHOT of Medi cine (ADULT)] Future Scheduled 2021-04-16 ZOSTER VACCINE (1 of [place] [employer] Test 13:24:17 2) [code = ZOSTER of Medicin e VACCINE (1 of 2)] Future Scheduled 2021-04-16 MEDICARE AWV [facility] [employer] 13:24:17 (Initial) [code = of Medicin e MEDICARE AWV (Initial)] Future Scheduled 2021-04-16 Pneumococcal 65+ (1 [employer] Test 13:24:17 of 1 - PPSV23) [code of Medi cine = Pneumococcal 65+ (1 of 1 - PPSV23)] Future Scheduled 2021-04-16 FLU VACCINE > 6 [facility] [employer] Test 13:24:17 MONTHS [code = FLU of Medici ne VACCINE > 6 MONTHS] Future Scheduled 2021-04-16 FALL SCREEN [code = [employer] 13:24:17 FALL SCREEN] of Medicine Future Scheduled 2021-04-16 CT HEAD WO CONTRAST 1 Occurrences [facility] College Test 12:40:52 [code = 54479-0] starting of Medicine 04/16/2021 until 04/16/2022 Future Scheduled 2021-03-[address] [facility] Test 00:00:00 (12+) [code = Medical Center DEPRESSION SCREENING (12+)] Future Scheduled 2021-03-20 FALLS RISK SCREENING [facility] Test 00:00:00 [code = FALLS RISK [facility] enter SCREENING] Future Scheduled 2006-05-[address] [facility] [facility] Test 00:00:00 WELLNESS (YEAR 2 or Medical Center FIRST YEAR if no IPPE) [code = MEDICARE ANNUAL WELLNESS (YEAR 2 or FIRST YEAR if no IPPE)] Future Scheduled 1990 SHINGLES VACCINES ([address] [facility] Test 00:00:00 of 2) [code = Medical Center SHINGLES VACCINES (1 of 2)] Future Scheduled 1959-05-26 DTAP/TDAP/TD [facility] Test 00:[facility]00 VACCINES (1 - Tdap) Medical Center [code = DTAP/TDAP/TD VACCINES (1 - Tdap)] Future Scheduled 1946 PNEUMOCOCCAL 65+ YRS [facility] Test 00:00:00 (1 - PCV) [code = Medical nter PNEUMOCOCCAL 65+ YRS (1 - PCV)] Future Scheduled 1940 COVID-[address] [facility] Test 00:00:00 (#1) [code = Medical Center COVID-19 VACCINE (#1)] Future Scheduled TETANUS SHOT (ADULT) [facility] [employer] Test [code = TETANUS SHOT of Medi cine (ADULT)] Future Scheduled MEDICARE AWV [facility] [employer] (Initial) [code = of Medicin e MEDICARE AWV (Initial)] Future Scheduled FALL SCREEN [code = [employer] FALL SCREEN] of Medicine Future Scheduled PNEUMOVAX >=65 [facility] Co llege Test (PPSV23) [code = of Medicine PNEUMOVAX >=65 (PPSV23)] Future Scheduled PREVNAR >= 65 [facility] Col [employer]ge Test (PCV13) [code = of Medicine PREVNAR >= 65 (PCV13)] Future Scheduled FLU VACCINE > 6 [facility] C [employer]lege Test MONTHS [code = FLU of Medici ne VACCINE > 6 MONTHS] Encounters Start End Encounter Admission Attending Care Care Encounter Source Date/Time Date/Time Type Type Clinicians Facility Department ID 2021-06-16 Outpatient [facility] [id number] 82-2 [place] 01:04:29 , [id number] [facility] 2021-04-15 Outpatient 3 [id number] ENCPL REF [id number] [facility] 13:44:55 [facility] [place] 2021-03-30 Inpatient ER [facility] Neurosurger [id number] 15:51:19 [facility] 2021-03-16 Inpatient ER [facility] Neuro ICU [id number] 11:23:09 [facility] 2021-03-[address] [facility] [id number] 00:[facility]:[address] [facility] 2020-12-22 Inpatient DEAN BAILEY Surgery [id number] SLE 15:37:42 VARGAS 2021-11-10 2021-11-10 Outpatient EDNA GARCIA [facility] [id number] SLE 11:02:06 23:59:00 [facility] 2021-11-10 2021-11-10 [facility] [id number] 11:00:00 23:59:00 Encounter 1, [facility] [address] [facility] Room [facility] 2021-11-10 2021-11-10 Office SHASHA Payne [id number] [facility] 13:00:00 14:15:01 Visit Cecy AMBULATOR [id number] College Y 0.2.7.2.686 of [id number] Medi jessi 800 e 2021-11-10 2021-11-10 Office Melinda [facility] [id number] [facility] 11:20:00 13:18:22 Visit Jarett AMBULATOR 350.1.13.21 College Y 0.2.7.2.686 of [id number] Medi jessi 300 e 2021-11-05 2021-11-05 Office SHASHA Payne [id number] [facility] 08:00:00 10:55:35 Visit Cecy AMBULATOR 350.1.13.21 College Y 0.2.7.2.686 of [id number] Medi jessi 800 e 2021-11-04 2021-11-04 Outpatient [facility] [id number] [facility] 00:00:00 00:00:00 [facility] 2021-11-02 2021-11-02 Emergency ER TELLO [facility] Emergency [id number] SLE 15:52:00 20:54:00 [facility] 2021-11-02 2021-11-02 Emergency Tanvi [facility] [id number] 15:52:00 20:54:00 [facility] 2021-11-02 2021-11-02 Travel [facility] [id number] [facility] 00:00:00 00:00:00 [facility] 2021-11-02 2021-11-02 Outside [facility] [id number] 00:00:00 00:00:00 Orders [facility] 2021-10-18 2021-10-20 [facility] [id number] 07:06:00 19:42:00 Encounter Chi [facility] 2021-10-18 2021-10-20 Inpatient EDNA GARCIA Surgery [id number] SLE 07:06:00 19:42:00 [facility] 2021-10-19 2021-10-19 Travel [facility] [id number] [facility] 00:00:00 00:00:00 [facility] 2021-10-18 2021-10-18 Outpatient [facility] [id number] [facility] 07:06:00 23:59:00 Colleg e of Medicin e 2021-10-18 2021-10-18 [facility] [id number] 10:05:00 15:40:00 Chi [facility] 2021-10-18 2021-10-18 Anesthesia Jag [facility] [id number] 10:23:00 13:54:00 Event Firdous [facility] 2021-10-14 2021-10-14 [facility] [id number] 00:00:00 00:00:00 Only Chi [facility] 2021-10-07 2021-10-07 Outpatient LISA BISHOP [facility] [id number] SLE 11:37:38 23:59:00 2021-10-07 2021-10-07 [facility] [id number] 10:55:00 23:59:00 Encounter [facility] 2021-10-07 2021-10-07 Travel [facility] [id number] [facility] 00:00:00 00:00:00 [facility] 2021-08-18 2021-08-18 [facility] [id number] [facility] 13:32:13 23:59:00 [facility] 2021-08-18 2021-08-18 Outpatient EDNA GARCIA SLE [id number] SLE 13:32:13 23:59:00 [place] 2021-08-11 2021-08-11 Outside Chase [facility] [id number] 00:00:00 00:00:00 Orders Sylvester Vences [facility] 2021-06-16 2021-06-16 Outpatient SHASHA STONE [facility] [id number] [facility] 13:18:26 13:18:26 [facility] 2021-04-07 2021-04-23 Inpatient 3 RUBIA MCKEONPL BIT [id number] [facility] 19:19:00 13:25:00 HANS 0119 [facility] [place] 2021-04-16 2021-04-16 Office MELINDASHASHA ESPINOSA [id number] [facility] 12:09:26 14:59:30 Visit JARETT AMBULATOR 350.1.13.21 College Y 0.2.7.2.686 of [id number] Medi jessi 300 e 2021-03-30 2021-04-07 [facility] Kervin Bradley [facility] [id number] 21:12:00 18:41:00 Encounter Lai Gracia [facility] 2021-03-30 2021-04-07 Inpatient ER LAI GRACIA [facility] Surgery [id number] [facility] 21:12:00 18:41:00 2021-04-02 2021-04-02 Travel [facility] [id number] [facility] 00:00:00 00:00:00 [facility] 2021-03-31 2021-03-31 Anesthesia Alicia Saavedra [facility] [id number] [facility] 12:36:00 16:06:00 Event Lindsay Hairston [facility] 2021-03-31 2021-03-31 Surgery Chase [facility] [id number] 12:00:00 15:39:00 Chi Poole [facility] 2021-03-30 2021-03-30 Outpatient [facility] [id number] [facility] 21:12:00 23:59:00 Colleg e of Medicin e 2021-03-15 2021-03-15 [facility] [id number] 23:59:00 23:59:00 Encounter [facility] 2021-03-15 2021-03-15 Outpatient [facility] [id number] SLE 00:00:00 23:59:00 [facility] 2021-03-14 2021-03-15 [facility] [id number] [facility] 01:11:00 12:29:00 [facility] 2021-03-14 2021-03-15 Inpatient ER KENDAL EDNA Neuro ICU [id number] SLE 01:11:00 12:29:00 DOUGIE 2021-03-14 2021-03-14 Travel [facility] [id number] [facility] 00:00:00 00:00:00 [facility] 2021-03-10 2021-03-10 Outside [facility] [id number] 00:00:00 00:00:00 Orders [facility] 2021-02-24 2021-02-27 [facility] Loan Palomares [facility] [id number] [facility] 19:54:00 17:51:00 Encounter Doyle Colon [facility] 2021-02-24 2021-02-27 Inpatient ER DOYLE COLON [facility] Surgery [id number] SLE 19:54:00 17:51:00 2021-02-26 2021-02-26 Travel [facility] [id number] [facility] 00:00:00 00:00:00 [facility] 2021-02-25 2021-02-25 Surgery [facility] [id number] 09:00:00 11:53:00 [facility] 2021-02-25 2021-02-25 Anesthesia Huber Casillas [facility] [id number] 08:48:00 11:34:00 Event Gisela Murcia [facility] 2021-02-24 2021-02-24 Orders [facility] [id number] 00:00:00 00:00:00 Only [facility] 2019-08-15 2019-08-15 Outpatient SLE SLE [id number] [facility] 00:00:00 00:00:00 2019-08-13 2019-08-13 Outpatient [facility] [id number] [facility] 00:00:00 00:00:00 [id number] 2019-06-17 2019-06-17 Outpatient SLE SLE [id number] [facility] 00:00:00 00:00:00 [id number] 2019-04-17 2019-04-17 Office Juan Manuel KALEIGHFortino [id number] [facility] 11:16:47 14:53:18 Visit Vargas AMBULATOR 350.1.13.21 College Y 0.2.7.2.686 [id number] [facility] 825 e Results Test Description Test Time Test Comments Results Result [facility] e Comments CT, BRAIN, WITHOUT 2021-11-10 Unlisted IV CONTRAST 11:27:00 Reason for Exam - Click [facility] Yes and Enter [facility] Reason CENTERName: KUO, Below->YesChristopher REMA MCDANIEL : sted Reason 1940 Sex: for M Exam->History of subdural FI hematoma NAL REPORT CT, BRAIN, WITHOUT IV CONTRAST HISTORY: Subdural hematoma COMPARISON: Head CT 11/02/2021 Technique: Noncontrast axial scans were obtained from skull base to the vertex. Coronal and sagittal reconstructions obtained from the axial data. One or more of the following dose reduction techniques were used: Automated exposure control, adjustment of the mA and/or kV according to patient size, and/or utilization of iterative reconstruction technique. DISCUSSION: Scalp/Skull: Right parietal craniectomy/craniopla sty changes are present. Approximately 1.1 cm thick scalp hematoma over the cranioplasty is slightly smaller (previously 2 cm thickness)Brain sulci: Mildly prominent.Ventricles: Compensatory dilatation. Cavum septum pellucidum et vergae is present, a normal variant. Extra-axial spaces: Approximately 1.4 cm thick subacute right frontoparietal extra-axial hematoma underneath the cranioplasty is smaller (previously 2.1 cm thickness). There is persistent local mass effect on the right lateral frontoparietal convexity without brain herniation. No new masses or fluid collections. Carotid siphon vertebral artery calcifications are present. Parenchyma: Mild bilateral deep white matter hypodensity is likely chronic microvascular ischemic change. Otherwise, no masses, hemorrhage, or large vascular territory acute infarct. Dural sinuses: No abnormal densities.Sellar/Supr asellar region: Intact.Skull base: Intact.Incidental findings: None. IMPRESSION:1.No new acute intracranial abnormalities.2.Subac alexy hematomas on both sides of the right parietal cranioplasty (scalp and intracranial/extradur al) are slightly smaller. Persistent local mass effect on the right frontoparietal convexity without brain herniation.3.No other significant change when compared to head CT on 11/02/2021. Signed: Adrian Myers Verified Date/Time: 11/10/2021 11:27:49 Reading Location: [facility] Reading Room [address] [place] [address] -CoV2/RT-PCR (Asymptomatic ONLY) 2021-11-02 21:15:25 Test Item Value Reference Range Interpretation Comme nts SARS-COV2/RT-PCR (test Negative Negative The S ARS-CoV-2 target code = 92675-1) nucleic acid s are not detected in thi s specimen. Negat mary jane results do not preclude SARS-CoV-2 infe ction and should not be u sed as the sole basis for patient management deci sions. Negative result s must be combined with c linical observations, p atient history, and epidemiological information. A false negative result may occur if a specimen i s improperly sabino ected, transported or handled. This SARS CoV-2 test is a rapid, real-osei e RT-PCR test intended f or the qualitative det ection of nucleic acid fr om SARS-CoV-2 in a nasopharyngeal swab specimen collec madisyn from individuals [place] pected of COVID-19 by the [facility] ider. MIRLANDE (test code = MIRLANDE) This test has been authorized by FDA [...] revoked sooner. Fact Sheet for Healthcare Providers: https://www.[employer] /Documents/Xpert%20Xpre ss%20SARS%20CoV-2/Fact% 20Sheets/302-3802%20SAR S-COV-2%20HEALTHCARE%20 PROVIDERS%20FACT%20SHEE T.pdf Fact Sheet for Healthcare Patients: https://www.[employer] /Documents/Xpert%20Xpre ss%20SARS%20CoV-2/Fact% 20Sheets/302-3801%20SAR S-COV-2%20PATIENT%20FAC T%20SHEET.pdf Lab Interpretation (test Normal code = 96566-2) [facility]2021-11-02 21:15:25 Test Item Value Reference Range Interpretation Comments SARS-COV2/RT-PCR Negative Negative The SARS-Co V-2 target (test code = nucleic acids a re not 1375992) detected in thi s specimen. Negative result [...] revoked sooner. Fact Sheet for Healthcare Providers: https://www.Arrayent m/Documents/Xpert%20Xpress%20SARS%20CoV-2/Fact%20Sheets/3023802%67CRNP-OYW-1%20 HEALTHCARE%20PROVIDERS%20FACT%20SHEET.pdf Fact Sheet for Healthcare Patients: https://www.[employer]/Documents/Xpert%20Xp ress%20SARS%20CoV-2/Fact%20Sheets/3023801%23DHXP-BQL-8%20PATIENT%20FACT%20SHEET .[id number] 18:33:27 Test Item Value Reference Range Interpretation Comments MAGNESIUM (BEAKER) (test code = 2.1 mg/dL 1.6-2.6 627) Director Of Sales Support ID - [id number] 18:33:27 Test Item Value Reference Range Interpretation Comments PHOSPHORUS (BEAKER) (test code = 3.6 mg/dL 2.3-4.7 604) Director Of Sales Support ID - BSBASIC METABOLIC [id number] 18:33:26 Test Item Value Reference Range Interpretation Comments SODIUM (BEAKER) 138 meq/L 136-145 (test code = 381) POTASSIUM 4.2 meq/L 3.5-5.1 (BEAKER) (test code = 379) CHLORIDE (BEAKER) 106 meq/L 98-107 (test code = 382) CO2 (BEAKER) 26 meq/L 22-29 (test code = 355) BLOOD UREA 11 mg/dL 7-21 NITROGEN (BEAKER) (test code = 354) CREATININE 0.81 mg/dL 0.57-1.25 (BEAKER) (test code = 358) GLUCOSE RANDOM 118 mg/dL 70-105 H (BEAKER) (test code = 652) CALCIUM (BEAKER) 8.8 mg/dL 8.4-10.2 (test code = 697) EGFR (BEAKER) 89 Interpretatio n of eGFR (test code = mL/min/1.73 values Stage D escription 1092) sq m Result G1 Tonya l [...] not appl icable for dialysis patien ts Director Of Sales Support ID - [id number] 18:27:00 Test Item Value Reference Range Interpretation Comments PROTIME (BEAKER) (test 14.9 seconds 11.9-14.2 H code = 759) INR (BEAKER) (test 1.24 See_Comment [Automat ed code = 370) message] The [employer] stem which generated this result transmitted reference range : <=5.90. The reference range was not used to interpret this result as normal/abnormal . PARTIAL THROMBOPLASTIN 39.0 seconds 22.5-36.0 H TIME (BEAKER) (test code = 760) RECOMMENDED COUMADIN/WARFARIN INR THERAPY RANGESSTANDARD DOSE: 2.0 - 3.0 Includes: PROPHYLAXIS for venous thrombosis, systemic embolization; TREATMENT for venous thrombosis and/or pulmonary embolus.HIGH RISK: Target INR is 2.5-3.5 for patients with mechanical heart valves.CBC (HEMOGRAM ONLY)2021-11-02 18:15:38 Test Item Value Reference Range Interpretation Comments WHITE BLOOD CELL COUNT (BEAKER) 7.1 K/ L 3.5-10.5 (test code = 775) RED BLOOD CELL COUNT (BEAKER) 3.36 M/ L 4.63-6.08 L (test code = 761) HEMOGLOBIN (BEAKER) (test code = 9.9 GM/DL 13.7-17.5 L 410) HEMATOCRIT (BEAKER) (test code = 31.4 % 40.1-51.0 L 411) MEAN CORPUSCULAR VOLUME (BEAKER) 93.5 fL 79.0-92.2 H (test code = 753) MEAN CORPUSCULAR HEMOGLOBIN 29.5 pg 25.7-32.2 (BEAKER) (test code = 751) MEAN CORPUSCULAR HEMOGLOBIN CONC 31.5 GM/DL 32.3-36.5 L (BEAKER) (test code = 752) RED CELL DISTRIBUTION WIDTH 15.7 % 11.6-14.4 H (BEAKER) (test code = 412) PLATELET COUNT (BEAKER) (test 202 K/CU MM 150-450 code = 756) MEAN PLATELET VOLUME (BEAKER) 10.4 fL 9.4-12.4 (test code = 754) NUCLEATED RED BLOOD CELLS 0 /100 WBC 0-0 (BEAKER) (test code = 413) CT, BRAIN, WITHOUT [id number] 17:52:00Epidural hematoma s/p [facility]ani[facility] : 1940 Sex: MFINAL REPORT CT, BRAIN, WITHOUT CONTRAST CLINICAL INDICATION: Unlisted Reason for Exam COMPARISON: 08/18/2021 TECHNIQUE: Noncontrast axial CT imaging of the brain and skull. DOSE REDUCTION: Dose modulation, iterative reconstruction, and/or weight-based adjustment of the mA/kV was utilized toreduce the radiation dose to as low as reasonably achievable. FINDINGS:Status post right frontopariet al cranioplasty. There is a new extra-axial collection deep to the cranioplasty measuring 2.1 cm in.Superficial to the cranioplasty, a collection within the scalp measures up to 1.9 cm. No consequent midline shift. Scattered foci of hypoattenuation are present throughout the periventricular and subcortical white matter, and, although nonspecific by imaging, statistically represent mild chronic microvascular ischemic changes in this age group. No hydrocephalus. Orbits are within normal limits. No obstructive paranasal sinus disease. IMPRESSION: 1.Status post right frontoparietal cranioplasty. Thereis a new extra-axial collection deep to the cranioplasty measuring 2.1 cm in. 2.Superficial to the cranioplasty, a collection within the scalp measures up to 1.9 cm.3.No consequent midline shift. If there is persistent clinical concern for intracranial pathology, MR examination is recommended for further characterization. Signed: Shanelle Doe MDReport Verified Date/Time: 11/02/2021 17:52:28 SARS-COV2/RT-PCR ([facility])2021-10-20 15:25:17 Test Item Value Reference Range Interpretation Comments SARS-COV2/RT-PCR Negative Negative The SARS-Co V-2 target (test code = nucleic acids a re not 5526474) detected in thi s specimen. Negative result [...] revoked sooner. Fact Sheet for Healthcare Providers: https://www.Arrayent m/Documents/Xpert%20Xpress%20SARS%20CoV-2/Fact%20Sheets/302-3802%43QKBC-EDE-7%20 HEALTHCARE%20PROVIDERS%20FACT%20SHEET.pdf Fact Sheet for Healthcare Patients: https://www.Mobile Multimedia/Documents/Xpert%20Xp ress%20SARS%20CoV-2/Fact%20Sheets/302-3801%89TRIX-QXB-4%20PATIENT%20FACT%20SHEET .[id number] 06:29:02 Test Item Value Reference Range Interpretation Comments MAGNESIUM (BEAKER) (test code = 1.9 mg/dL 1.6-2.6 627) Director Of Sales Support ID - PITRACIE [id number] 06:29:02 Test Item Value Reference Range Interpretation Comments PHOSPHORUS (BEAKER) (test code = 3.0 mg/dL 2.3-4.7 604) Director Of Sales Support ID - PIAYA LBASIC METABOLIC [id number] 06:29:01 Test Item Value Reference Range Interpretation [...] De scription 1092) sq m Result G1 Norm al or high >=90 G2 Mildly decreased 60-89 G3a Mildl y to moderately 45-5 9 G3b Moderately to s everely 30-44 G4 Severl y decreased 15-29 G5 Kidne y failure <15Reported eGF R is based on the CKD-EPI 2020 equation that d oes not use a race coefficientEsti mated GFR is not as accur ate as Creatinine Ailyn amira in predicting glom erular filtration rate . Estimated GFR is not appl icable for dialysis patien ts Director Of Sales Support ID - PIAYA LCBC (HEMOGRAM ONLY)2021-10-19 05:34:14 [...] code = 413) CT, BRAIN, WITHOUT IV [id number] 14:35:00Unlisted Reason for Exam - Click Yes and Enter Reason Below->YesUnlisted Reason for Exam->History of subdural hematomaGEMA [facility]Name: [facility] : 1940 Sex: MFINAL [...] Adrian Myers Verified Date/Time: 08/18/2021 14:35:26 AFB culture + smear (non-sputum)2021-05-20 14:09:29 Test Item Value Reference Range Interpretation Comments Result (test code = No acid-fast bacilli 6463-4) isolated in 42 days AFB Smear (test code = No acid fast bacilli 21914-7) seen [facility] (NON-SPUTUM)2021-05-20 14:09:29 Test Item [...] fast bacilli (test code = 994) seen Fungus culture + [id number] 00:24:25 Test Item Value Reference Range Interpretation Comments Result (test code = No fungus isolated in 6463-4) 28 days Fungus Smear (test No fungal elements seen code = 1406) [facility] Center[facility] + [id number] 00:24:25 Test Item Value Reference Range Interpretation Comments CULTURE (BEAKER) (test No fungus isolated in code = 1095) 28 days FUNGUS SMEAR (BEAKER) No fungal elements seen (test code = 1406) FUNGUS CULTURE + [id number] 00:24:25 Test Item Value Reference Range Interpretation Comments CULTURE (BEAKER) (test No fungus isolated in code = 1095) 28 days FUNGUS SMEAR (BEAKER) No fungal elements seen (test code = 1406) FUNGUS CULTURE + [id number] 00:23:23 Test Item Value Reference Range Interpretation Comments CULTURE (BEAKER) (test No fungus isolated in code = 1095) 28 days FUNGUS SMEAR (BEAKER) No fungal elements seen (test code = 1406) FUNGUS CULTURE + [id number] 00:23:23 Test Item Value Reference Range Interpretation Comments CULTURE (BEAKER) (test No fungus isolated in code = 1095) 28 days FUNGUS SMEAR (BEAKER) No fungal elements seen (test code = 1406) FUNGUS CULTURE + [id number] 00:23:23 Test Item Value Reference Range Interpretation Comments CULTURE (BEAKER) (test No fungus isolated in code = 1095) 28 days FUNGUS SMEAR (BEAKER) No fungal elements seen (test code = 1406) Tissue [id number] 17:24:26 Test Item Value Reference Range Interpretation Comments Case Report (test code Surgical Pathology = 104) Report Case: [id number] Authorizing Provider: Chi Stone MD Collected: 03/31/2021 02:55 PM Ordering Location: [facility] Received: 04/01/2021 08:14 AM SERVICES Pathologist: Zeferino Warner MD Specimen: Bone, Right frontal bone DIAGNOSIS (test code = [id number] 3220) uZzEwMzNcZnRuYmpcdWMxIH tccnRmMVxlcGljOTYwMVxhb iBhNZZzaLVqF3HmjoqeXTww UB0vBD4vkOjslBKdeOLtMHV tEkCby1jpk893jRJig1etEG AHgwhxwVp5jWalJ65lp7E0M vciK36igNMtPMQ1YCYaPQZe pUYcJMSbXXF0HIUrgBCyP4u rQWBrUD4kthamYWvsXMsbBQ WgtAF6TORirITjH1TeEWInE QwcMIBwqll9OlReMk8kzIKn eTcyMFxwYXJkXHBsYWluXGZ xQfZjVt5ZMCvlU9lAEHfdJ4 NFOnuYY6FDONh5DVRlmhPFT 2SMVeINT27YATBHNTCFE7JJ IElOVFJBTUVEVUxMQVJZIEl BUlrMWE1VWM9HZVZeciDAWx OKPXJDTYJbA4RtW3FHHcULI OTFV16fRZrBM7VOUMqYCVes BNVRML4OXcMVCOGsCq6YXOo uD7cVIEEMGLvAFXBHQZSNKT FORCBDSFJPTklDIElORkxBT N3CLIkNEdcfERU1b6vvuHFs XHNzdGUxODAwMFxhbnNpXGR vVdkpaqcvJIAbXIR3iaUxLK TdBNdhYPOuZHabAb7xdKLdu YeoDvMzQPIpt9kpszMQgrhw gYi6d7pqPHCnNtI6cDVmYGo sQ5loiwZowYFiDTBaDIu5oG 91DFWakW2xcUYzXRfccjNqF mH5PAubVBNiOeE2YADugXLi BRVlO0auOSHlTIokOOWuKDf gwLWaVGS7iUcpf9L7bHEwhG SwwMipZkIxMoBwTmIHr9NcL Cg0wNldO2FwDVRrYhN9vRIq IRQiDMofGQNkJTLjpzT5oG4 5JWlcszL8vRSfp1Fef30te2 27oA5ugABaXPM9AMCkVPOed DUbPKDtKFQ6KGLcqLFlB1qa MTKqKA3lcmvvCUmlMEuvKLE asXC1WDZhsPZaM4TxGHLqFU vzTAEbwak6UbFhEi1hqNCqu NjaEKork0usk5zkhRMuFig6 XQAkNdCsJbkaRJqsm8Ryi9b rUOHoqe3yZQC0yDMpaPpvx7 J5uHDiKGShqJNpCNIcXZ3iv UGzJSHuzI1iizggUVKkVeHp praiGGWfmKxzxrArHa9gcFm yMQX0AFbcF1hftV1iXeN8HW nwW0qvdC8wQEz9TTdpJBCtc ZE1ecH0KXQsiKZwI7ZwdA5u DPIuBL4yzwy4v4xhMQQ4DXl kZZSyYjG1ctV2FMGlkVZhIN KodVmfKMdxl370CVH2ZgHyF PAwb7GyH0XxbYzuC08avHmm J99qLYAecPpusG8hvItzfD0 cWsExRsMzTLvqmRbxAI2vXN BeC1mesIAnZQMaGMGtC6deG jFhcP2rxKwbNFwqtyMxCZAl Jgd6HHVhuOSmVEClXwn2AOD tSNVpG61swmkpFWP5fB0hl7 mvl9RnMIfpVMR3EQJqq16vG WnzmiT4OFkzYw7aXBUfZNm6 INacSNH9uY== COMMENT (test code = f4qmaMUaFSIciKX7UsUjHOS 3359) ny7oqn6AqkMHsjUYoZOigcF MprzVuog97wSS6qR73PU6mX GIzRqN9ZDOsvvP2Sug6UZJo MEOybGOcU213y9gbb1ptntA szQA3rOjmNJTivyxiIcS5BR srYXKkkbptRPv0CVtoLNZcm IY3CWOhjHAdS0CrFARhXM8q xyr5NPF7HRrbKOOwYqV1CWA ueJAsICZfaIixGQrin084SV J3IbGvVTCzroChmYsmyZ1hY wPtLRYIAECycP3dyaJcWp6r nF19OMPhJP1rIB1mQ2VtFkt hhS5yeCDtA3DdqCJkEUFlUV xwYXJ9 CPT Code(s) (test code g9ymqUPxYTFhtWT8QhWrZTD = 3357) az6qvg9SupCPgnRRqEMmmnT KxvgSzkq05cHN3uA77HJ8rO NNaHrU4HPQqqeH2Apu3LEOw TTYfjKKhB085n4jau7ujgjM vxJF0rLdxDUDepxrxVpD9OS usVVOmmqtgOGx5EDmsBZZcb HQ8VETziFRdB2ApXOLiOV3x euf4DTB2JPnrWSOlFfW0SPP gmWKdTYVasPxkQUlgu756ID P0PoEkKVVxiuXebEgvaP7zP zYyTYN7DYKyPEplENmiEZMm cGFyfQ== CLINICAL HISTORY (test s1jddZTrSGVxhGO1MqKqBEN code = 3356) wv2xve0XmjGQjqTJcHFcqfL XqzwDmfj44jLU7xT29KR1hS JBqKiP4LLNymmP0Rhv0EQLz LZJhnFWvD625z2qxm7blxiF tmFA0gTurRPFmphecQvP3UW xqUFFwdceeYSd7WCowBLJph DQ2TLGnrZHvK9IiGZWkIB0w qnb7SVQ9VJriCMDmAfV7LLP auEYwETWkcJdsVStcx881SB E5FvYqGXUdisLmfIwkhS6xY nMyMCBTdWJkdXJhbCBlbXB5 RI1eALDdzr5= SPECIMEN SOURCE (test l1cazTDuZZBmcRY0GcTlRTX code = 3377) pc7hfd3OdoPZvhRLbCYcfpU XtwcEuzd60xKT7uA88OU5xY CGvDeB3AFLibnQ2Ttn0PWVs APJaoPAqU999b8uvg9ganlF yrEQ5gGqjOZSrhnktFaP4AN akSDCiifmhXGi0MEfiYSMbn TX7QOIrrYPaK4EoPAJnJR1b vcx6VXQ3RAqiIIPdJkX4WBG nfXQxGCEihBowYTvcr299TV W0MwIkAUJqzpYsbPlmnP3sW aLkYRUSp8QplNnoomkiqKNk ZnJvbnRhbFxwYXJ9 GROSS DESCRIPTION h8oigMQoKNWcdHBsHsNvAKV (test code = 3366) fRAGwl6deTVRqkKUwMkDsVz NcZnRuYmpcdWMxXGRlZmYwe 0dcx373fNWjz7wbWIAiYrF8 yBCqZSUetXZwA374d7clq6d kgpMadJN1TRXeJSW8PPlukj MwqjC0BIsbpZHjGvC2YLmjv oQjTRurpmCshuOsFff9QIJz Z911XGP8fQcgb7idFNY9VBE tXPJqJgZdJv8wnPLrE970FW WgNOOHSZCupSv1NYLpbuIlg qHgvUGYe158P685k7iqJPRw dzUzfCuMxbudq6ryO401ZYR hcGVydzEyMjQwXHBhcGVyaD I0SFOaCP1kabjkYeWfXZ9lk pqhTzFxLX4rekc0SqHySX4s cmdiNzIwXGhlYWRlcnkwXGZ pk6GrxqfpQW9uV4Msa6A9vG 9maXRcZGVmdGFiNzIwXGZvc j6cfKTmOIvds4XzLWB9ctX9 cKFauEHmHONpVQ16Srtmk1B xBswnFAJ0ZQXnvbYkk5Nyk2 arYqRlxkDuJ3cxJ0CjSLWgR GNaGSLsNcXarlQyv7Kak1Jb sHXzvBk9v4hjUPZeMQDwvQn uw8fjZLJ6KTKqV6E4kJPvj0 aqZXmdQAAcnEI7zkwfSVbxY INtlxR1usfwCTbfODOhxPJ8 fomvPNsrIPDtCoZ8qqfzQGo eHHYsYAJ1LOevz841FHB6JP xzYmtwYWdlXHBnbmNvbnRcc GduZGVjXHBsYWluXHBsYWlu XGYwXGZzMjRccWxccGxhaW5 oZdCyLrYxGKhvGG8oYZIbW0 yxvTXaXLSqKEFnM0wsTaApl Q6jpAvkJYzgbcCmEBFlNQXl P9XdzxPzIQPsZAYnDWjfIkI fDMHpt9q7kRT7yOLicJB4cM WklHsbItOxPT0ilJCgPI3uU AlvCTbiwgOrv2HoYJ42bJRr ciBhbmQgImJvbmUiIGlzIGE mORLaOoC3PKNhFeH7TCKmUr TikLLchsIxZ8GyNMEhyV8vq ZxipnHqKvF1BD9oh3j3pFdx e4t2dDIeLBGlIA33KWBuv8L xpYTdCvKmEKWao7N6MYEzIt AgVGhlIHNwZWNpbWVuIGlzI OKiW3Azr71wHOMqmjIblh9g D4Cal0PqnDJmwE0ijtVfliZ kdRKgcbMuZcspRW1hBNCjzE Rvp5AzzLH7mHPyAFJzR8Zdt 48oFYHlUXEacFWbrMI6QYYr rI0lGKRsKDAeFHWisSlci9v uZyBkZWNhbGNpZmljYXRpb2 9sEHAghciqWQHuA4oyoPXiK NALfaS4fhaeRVvUNCWDTSYx QVNDUCljbVxwYXJ9 MICROSCOPIC k3fflKMaHKUoyVU6ZjFfRXD DESCRIPTION (test code ms2qgz7MpcVBfaLZpRHjgrS = 3371) KhyuVmjp94qIG3pY23FD1sR IOnUaK3QETyacP7Adh9YZKu SGSqqDZtC889q4ckx6fbpiK jxOP5fXcpKSDaofhhXyK6CG ffRYXxylslEUr8TTysBWGxd UH9QDPpxKIaO2BzVERgPQ8q iza5GRM1YOdzTXUxUiD7PTS grXCcPIHbxNkeGLyaz514BI E1XgTaAEZutxHcqOvrvM3nV xYfWUGLBSZDB4MXUAYbuVZq fQ== [facility] [id number] 17:24:26Surgical Pathology Report Case: [id number] Authorizing Provider: Chi Stone MD Collected: 03/31/2021 02:55 PM Ordering Location: [facility] Received: 04/01/2021 08:14 AM SERVICES Pathologist: Zeferino Warner MD Specimen: Bone, Right frontal bone BONE, SKULL CRANIECTOMY:WOVEN BONE, WITHOUT INTRAMEDULLARY INFLAMMTIONFRAGMENTS OF GRANULATION TISSUE WITH DEGENERATED BONE, WITH MILD ACUT E AND CHRONIC INFLAMMATION Signing Pathologist Direct Phone Line: [phone] signed by Zeferino Warner MD on 04/11/2021 at 5:24 PMRecommend follow-up of microbiologic cultures. 88750; [id number] empyemaSkull, right frontalA. Received fresh labeled with the patient's name, medical record number and "bone" is a 10.2 x 5.7 x 0.6 cm irregular portion of blanton skull with a scant amount ofperiosteum. The specimen is sectioned and no gross lesions are identified. Airplane Captain sections are submitted in A1-A2, following decalcification.PRESTON Gay, PA (ASCP)cmPERFORMEDANAEROBIC [id number] 11:21:45 Test Item Value Reference Range Interpretation Comments CULTURE (BEAKER) (test No anaerobes isolated code = 1095) Iron, TIBC, % sat. (without ferritin)2021-04-07 04:53:51 Test Item Value Reference Range Interpretation Comments Iron (test code = 2498-4) 40.0 ug/dL 40.0-160.0 TIBC (test code = 2500-7) 199 ug/dL 250-450 L Iron % Saturation (test 20 % 20-55 code = 2502-3) MIRLANDE (test code = MIRLANDE) Director Of Sales Support ID - JENNIFER W Lab Interpretation (test Abnormal code = 63420-9) [facility] Center[facility], TIBC, % SAT. (WITHOUT FERRITIN)2021-04-07 04:53:51 Test Item Value Reference Range Interpretation Comments IRON (BEAKER) (test code = 547) 40.0 ug/dL 40.0-160.0 TOTAL IRON BINDING CAPACITY 199 ug/dL 250-450 L (BEAKER) (test code = 769) IRON % SATURATION (2) (BEAKER) 20 % 20-55 (test code = 2590) Director Of Sales Support ID - JENNIFER [id number] 04:25:07 Test Item Value Reference Range Interpretation Comments Ferritin (test code = 209.36 ng/mL 5.00-275.00 2276-4) MIRLANDE (test code = MIRLANDE) Director Of Sales Support ID - JENNIFER W Lab Interpretation (test Normal code = 50484-2) [facility] CenterVitamin B12 and [id number] 04:25:07 Test Item Value Reference Range Interpretation Comments Vitamin B12 (test 552 pg/mL 213-816 code = 2132-9) Folate (test code = 12.00 ng/mL See_Comment [Automa madisyn 2284-8) message] The system which generated this result transmit madisyn reference range : >=7.00. The reference range was not used to interpret this result as normal/abnormal . MIRLANDE (test code = MIRLANDE) Director Of Sales Support ID - JENNIFER Rueda Lab Interpretation Normal (test code = 34895-9) [facility] CenterFERRITIN2022-01-19 04:25:07 Test Item Value Reference Range Interpretation Comments FERRITIN (BEAKER) (test code = 209.36 ng/mL 5.00-275.00 361) Director Of Sales Support ID - JENNIFER RuedaVITAMIN B12 AND [id number] 04:25:07 Test Item Value Reference Range Interpretation Comments VITAMIN B12 552 pg/mL 213-816 (BEAKER) (test code = 774) FOLATE (BEAKER) 12.00 ng/mL See_Comment [Automated message] (test code = 362) The system which generated this result transmitted ref erence range: >=7.00. The reference range was not used to interpr et this result as normal/abnormal . Director Of Sales Support ID - JENNIFER [id number] 03:45:59 Test Item Value Reference Range Interpretation Comments MAGNESIUM (BEAKER) (test code = 2.1 mg/dL 1.6-2.6 627) Director Of Sales Support ID - ISAK MBASIC METABOLIC [id number] 03:45:58 Test Item Value Reference Range Interpretation [...] S NOT APPLICABLE FOR DIALYSIS PATIEN TS. Director Of Sales Support ID - ISAK MCBC with platelet count + automated [id number] 03:22:50 Test Item Value Reference Range Interpretation Comments WBC (test code = 6690-2) 6.8 See_Comment [A utomated message] The system [employer] generated this result transmitted ref erence range: 3.5 - 10 .5 K/L. The refe rence range was not u sed to interpret this result as normal/abnor mal. RBC (test code = 789-8) 2.63 See_Comment L [Au tomated message] The system [employer] generated this result transmitted ref erence range: 4.63 - 6 .08 M/L. The refe rence range was not u sed to interpret this result as normal/abnor mal. MCHC (test code = 786-4) 32.3 See_Comment L [A utomated message] The system [employer] generated this result transmitted ref erence range: 32.3 - 3 6.5 GM/DL. The refe rence range was not u sed to interpret this result as normal/abnor mal. Hematocrit (test code = 24.8 % 40.1-51.0 L 4544-3) MCV (test code = 787-2) 94.3 fL 79.0-92.2 H MCH (test code = 785-6) 30.4 pg 25.7-32.2 RDW (test code = 788-0) 14.9 % 11.6-14.4 H Platelets (test code = 221 See_Comment [Aut omated message] 777-3) The system [employer] generated this result transmitted ref erence range: 150 - 45 0 K/CU MM. The referen ce range was not u sed to interpret this result as normal/abnor mal. MPV (test code = 10.0 fL 9.4-12.4 23057-8) nRBC (test code = 413) 0 See_Comment [Aut omated message] The system [employer] generated this result transmitted ref erence range: 0 - 0 /1 00 WBC. The refere nce range was not u sed to interpret this result as normal/abnor mal. % Neutros (test code = 67 % 429) % Lymphs (test code = 20 % 430) % Monos (test code = 10 % 431) % Eos (test code = 432) 2 % % Baso (test code = 437) 0 % # Neutros (test code = 4.55 See_Comment [Aut omated message] 670) The system [employer] generated this result transmitted ref erence range: 1.78 - 5 .38 K/L. The refe rence range was not u sed to interpret this result as normal/abnor mal. # Lymphs (test code = 1.38 See_Comment [Auto mated message] 414) The system [employer] generated this result transmitted ref erence range: 1.32 - 3 .57 K/L. The refe rence range was not u sed to interpret this result as normal/abnor mal. # Monos (test code = 0.70 See_Comment [Autom ated message] 415) The system [employer] generated this result transmitted ref erence range: 0.30 - 0 .82 K/L. The refe rence range was not u sed to interpret this result as normal/abnor mal. # Eos (test code = 416) 0.11 See_Comment [Au tomated message] The system [employer] generated this result transmitted ref erence range: 0.04 - 0 .54 K/L. The refe rence range was not u sed to interpret this result as normal/abnor mal. # Baso (test code = 417) 0.02 See_Comment [A utomated message] The system [employer] generated this result transmitted ref erence range: 0.01 - 0 .08 K/L. The refe rence range was not u sed to interpret this result as normal/abnor mal. Immature 1 % 0-1 Granulocytes-Relative (test code = 2801) Lab Interpretation (test Abnormal code = 58463-3) [facility] W/PLT COUNT & AUTO [id number] 03:22:50 Test Item Value Reference Range Interpretation [...] 0-1 PERCENT (BEAKER) (test code = 2801) [id number] 04:29:13 Test Item Value Reference Range Interpretation Comments MAGNESIUM (BEAKER) (test code = 2.1 mg/dL 1.6-2.6 627) Director Of Sales Support ID - LELIA LBASIC METABOLIC [id number] 04:29:12 Test Item Value Reference Range Interpretation [...] S NOT APPLICABLE FOR DIALYSIS PATIEN TS. Director Of Sales Support ID - LELIA LCBC W/PLT COUNT & AUTO [id number] 03:53:16 Test Item Value Reference Range Interpretation [...] 2801) RAD, CHEST, PA OR AP, 1 [id number] 15:58:00VAT/Infusion Therapy Nurse to Call Radiology Department when patient is readyReason for exam:->picc placementShould this be performed at the bedside?->Yes [facility] : 1940 Sex: MFINAL REPORT Chest, one [...] size. No acute bone abnormality. Signed: Meg Pritchett MDReport Verified Date/Time: 04/05/2021 15:58:37 Reading Location: [facility] [address] Radiology Reading Room Electronically signedby: MEG PRITCHETT MD on 04/05/2021 03:58 PMBlood Culture - Routine (Left Venipuncture)2021-04-05 13:00:19 Test Item Value Reference Range Interpretation Comments Result (test code = No growth in 5 days 6463-4) MIRLANDE (test code = MIRLANDE) The specimen volume collected for this blood culture was below the optimum (10 mL per bottle or 20 mL total). Use of lower volumes may adversely affect recovery and/or detection times of some organisms. [facility] CenterBLOOD [id number] 13:00:19 Test Item Value Reference Range Interpretation Comments CULTURE (BEAKER) (test No growth in 5 days code = 1095) BLOOD [id number] 13:00:19 Test Item Value Reference Range Interpretation Comments CULTURE (BEAKER) (test No growth in 5 days code = 1095) The specimen volume collected for this blood culture was below the optimum (10 mL per bottle or 20 mL total). Use of lower volumes may adversely affect recovery and/or detection times of some organisms.ANAEROBIC [id number] 08:19:23 Test Item Value Reference Range Interpretation Comments CULTURE (BEAKER) (test No anaerobes isolated code = 1095) BASIC METABOLIC [id number] 05:57:41 Test Item Value Reference Range Interpretation [...] S NOT APPLICABLE FOR DIALYSIS PATIEN TS. Director Of Sales Support ID - PIAYA [id number] 05:57:41 Test Item Value Reference Range Interpretation Comments MAGNESIUM (BEAKER) (test code = 2.2 mg/dL 1.6-2.6 627) Director Of Sales Support ID - PIAYA LCBC W/PLT COUNT & AUTO [id number] 05:27:21 Test Item Value Reference Range Interpretation [...] 0-1 PERCENT (BEAKER) (test code = 2801) Anaerobic [id number] 10:52:29 Test Item Value Reference Range Interpretation Comments Result (test code = No anaerobes isolated 6463-4) [facility] [id number] 10:52:29 Test Item Value Reference Range Interpretation Comments CULTURE (BEAKER) (test No anaerobes isolated code = 1095) ANAEROBIC [id number] 10:50:37 Test Item Value Reference Range Interpretation Comments CULTURE (BEAKER) (test No anaerobes isolated code = 1095) BASIC METABOLIC [id number] 04:06:33 Test Item Value Reference Range Interpretation [...] S NOT APPLICABLE FOR DIALYSIS PATIEN TS. Director Of Sales Support ID - LELIA [id number] 04:06:33 Test Item Value Reference Range Interpretation Comments MAGNESIUM (BEAKER) (test code = 2.1 mg/dL 1.6-2.6 627) Director Of Sales Support ID Valerie ROWELL LCBC W/PLT COUNT & AUTO [id number] 03:35:05 Test Item Value Reference Range Interpretation [...] = 2801) SURGICALLY OBTAINED CULTURE + GRAM [id number] 11:47:50 Test Item Value Reference Range Interpretation Comments CULTURE (BEAKER) (test No growth code = 1095) GRAM STAIN RESULT <1+ White blood cells (BEAKER) (test code = seen 1123) GRAM STAIN RESULT No organisms seen (BEAKER) (test code = 57076) Surgically obtained culture + gram [id number] 11:19:28 Test Item Value Reference Range Interpretation Comments Result (test code = From Broth Only Same A Refer to 6463-4) organism has been previous isolated from culture cultures(s) of the ofSerrati a same body site and [facility] s collection date. Repeat identification and susceptibility testing performed only after consultation with the clinical microbiology laboratory. Gram Stain Result No organisms seen (test code = 1123) Lab Interpretation Abnormal (test code = 83943-0) [facility] GRAM [id number] 11:19:28 Test Item Value Reference Range Interpretation Comments CULTURE A From Broth Only Same (BEAKER) (test organism has been code = 1095) isolated from cultures(s) of the same body site and collection date . Repeat identifi cation and susceptibil ity testing perform ed only after consultat ion with the [facility] microbiology laboratory.Refe r to previous cultur e ofSerratia perez escens GRAM STAIN 2+ White blood RESULT (BEAKER) cells seen (test code = 1123) GRAM STAIN No organisms seen RESULT (BEAKER) (test code = 477576) SURGICALLY OBTAINED CULTURE + GRAM [id number] 11:17:25 Test Item Value Reference Range Interpretation Comments CULTURE (BEAKER) (test code No growth = 1095) GRAM STAIN RESULT (BEAKER) 3+ WBCs (test code = 1123) GRAM STAIN RESULT (BEAKER) No organisms seen (test code = 800078) SURGICALLY OBTAINED CULTURE + GRAM [id number] 11:12:56 Test Item Value Reference Range Interpretation [...] No organisms (BEAKER) (test code = seen 972364) SURGICALLY OBTAINED CULTURE + GRAM [id number] 11:05:25 Test Item Value Reference Range Interpretation Comments CULTURE A From Broth Only Same (BEAKER) (test organism has been code = 1095) isolated from cultures(s) of the same body site and collection date . Repeat identifi cation and susceptibil ity testing perform ed only after consultat ion with the [facility] microbiology laboratory.Refe r to previous cultur e ofSerratia perez escens GRAM STAIN 2+ White blood RESULT (BEAKER) cells seen (test code = 1123) GRAM STAIN No organisms seen RESULT (BEAKER) (test code = 920761) CT, BRAIN, WITHOUT [id number] 10:52:00Unlisted Reason for Exam - Click Yes and Enter Reason Below->No [facility] : 1940 Sex: MFINAL REPORT CT, BRAIN, WITHOUT CONTRAST CLINICAL INDICATION: Intraop or postop complications, nervous system COMPARISON: None TECHNIQUE: Noncontrast axial CT imaging of the brain and skull. DOSE REDUCTION: Dose modulation, iterative reconstruction, and/or weight-based adjustment ofthe mA/kV was utilized to reduce the radiation dose to as low as reasonably achievable. FINDINGS:Status post right frontoparietal craniectomy. Interval removal of subdural drain. Residual extra-axial pneumocephalus and mixed density hematoma is decreased in thickness in the interim and there is consequent decrease midline shift, formerly 7 mm and now 4 mm. Effacement of the right lateral ventricle issimilarly decreased. Background mild senescent parenchymal volume loss [...] examination is recommended for further characterization. Signed: Jeffrey DoeReport Verified Date/Time: 04/03/2021 10:52:21 ANAEROBIC [id number] 08:43:30 Test Item Value Reference Range Interpretation Comments CULTURE (BEAKER) (test No anaerobes isolated code = 1095) [id number] 05:44:59 Test Item Value Reference Range Interpretation Comments PHOSPHORUS (BEAKER) (test code = 2.4 mg/dL 2.3-4.7 604) Director Of Sales Support ID - ISAK MBASIC METABOLIC [id number] 05:44:58 Test Item Value Reference Range Interpretation [...] S NOT APPLICABLE FOR DIALYSIS PATIEN TS. Director Of Sales Support ID - ISAK [id number] 05:44:58 Test Item Value Reference Range Interpretation Comments MAGNESIUM (BEAKER) (test code = 2.1 mg/dL 1.6-2.6 627) Director Of Sales Support ID - ISAK MCBC W/PLT COUNT & AUTO [id number] 05:27:07 Test Item Value Reference Range Interpretation [...] (BEAKER) (test code = 413) BASIC METABOLIC [id number] 05:23:34 Test Item Value Reference Range Interpretation [...] S NOT APPLICABLE FOR DIALYSIS PATIEN TS. Director Of Sales Support ID - LELIA [id number] 04:20:57 Test Item Value Reference Range Interpretation Comments PHOSPHORUS (BEAKER) (test code = 1.9 mg/dL 2.3-4.7 L 604) Director Of Sales Support ID - LELIA [id number] 04:20:56 Test Item Value Reference Range Interpretation Comments MAGNESIUM (BEAKER) (test code = 2.2 mg/dL 1.6-2.6 627) Director Of Sales Support ID - LELIA LCBC W/PLT COUNT & AUTO [id number] 04:01:33 Test Item Value Reference Range Interpretation [...] 0-1 PERCENT (BEAKER) (test code = 2801) Vancomycin level, [id number] 21:43:17 Test Item Value Reference Range Interpretation Comments Vancomycin Tr (test code = 11.7 ug/mL 10.0-20.0 4092-3) MIRLANDE (test code = MIRLANDE) Director Of Sales Support ID - DB Lab Interpretation (test Normal code = 81845-5) [facility] [id number] 21:43:17 Test Item Value Reference Range Interpretation Comments VANCOMYCIN TROUGH (BEAKER) (test 11.7 ug/mL 10.0-20.0 code = 522) Director Of Sales Support ID - DBHIV-1 Antigen with HIV-1/2 [id number] 18:09:38 Test Item Value Reference Range Interpretation Comments HIV-1 Antigen with HIV 1&2 Nonreactive Nonreactive Antibody (test code = 13357-0) MIRLANDE (test code = MIRLANDE) Director Of Sales Support ID - DB Lab Interpretation (test Normal code = 16948-3) [facility] WITH HIV-1/2 [id number] 18:09:38 Test Item Value Reference Range Interpretation Comments HIV-1 ANTIGEN WITH HIV 1\\T\\2 Nonreactive Nonreactive ANTIBODY (2) (BEAKER) (test code = 2586) Director Of Sales Support ID - DBHepatitis panel, [id number] 18:09:37 Test Item Value Reference Range Interpretation Comments Hep A IgM (test code = Nonreactive Nonreactive 73964-2) Hep B C IgM (test code = Nonreactive Nonreactive 00834-3) Hepatitis C Ab (test code = Nonreactive Nonreactive 22690-0) Hepatitis B surface antigen Nonreactive Nonreactive (test code = 5195-3) MIRLANDE (test code = MIRLANDE) Director Of Sales Support ID - DB Lab Interpretation (test Normal code = 52615-2) [facility] PANEL, [id number] 18:09:37 Test Item Value Reference Range Interpretation Comments HEPATITIS A IGM ANTIBODY (BEAKER) Nonreactive Nonreactive (test code = 498) HEPATITIS B CORE IGM ANTIBODY Nonreactive Nonreactive (BEAKER) (test code = 645) HEPATITIS C ANTIBODY (BEAKER) Nonreactive Nonreactive (test code = 367) HEPATITIS B SURFACE ANTIGEN (2) Nonreactive Nonreactive (BEAKER) (test code = 2585) Director Of Sales Support ID - DBHigh Sensitivity Troponin I ([facility]/Maribeth Only)2021-04-01 16:57:21 Test Item Value Reference Range Interpretation Comments Troponin I HS (test 6 pg/ml See_Comment [Automa madisyn code = 07054-1) message] The system which generated this result transmitted reference range : <=35. The reference range was not used to interpret this result as normal/abnormal . MIRLANDE (test code = Director Of Sales Support ID - MIRLANDE) [employer] CPAS STAT High Sensitivity Troponin-I results should be used in conjunction with other diagnostic information such as ECG, clinical observations and information, and patient symptoms to aid in the diagnosis of VT. Lab Interpretation Normal (test code = 31025-7) [facility] Center[facility] SENSITIVITY TROPONIN [id number] 16:57:21 Test Item Value Reference Range Interpretation Comments HIGH SENSITIVITY 6 pg/ml See_Comment [Automated message] TROPONIN I (test code = The system which 4195870) generated this result transmitted ref erence range: <=35. Th e reference range was not used to interpr et this result as normal/abnormal . Director Of Sales Support ID - ERNESTINA GThe CPAS STAT High Sensitivity Troponin-I results should be used in conjunction with other diagnostic information such as ECG, clinical observations and information, and patient symptoms to aid in the diagnosis of VT.SPIN/CONCENTRATION [id number] 11:38:19 Test Item Value Reference Range Interpretation Comments Concentration charged (test code = Done 2657) [facility] [id number] 11:38:19 Test Item Value Reference Range Interpretation Comments CONCENTRATION CHARGED (BEAKER) (test Done code = 2657) SPIN/CONCENTRATION [id number] 11:37:06 Test Item Value Reference Range Interpretation Comments CONCENTRATION CHARGED (BEAKER) (test Done code = 2657) BASIC METABOLIC [id number] 04:15:19 Test Item Value Reference Range Interpretation [...] S NOT APPLICABLE FOR DIALYSIS PATIEN TS. Director Of Sales Support ID - ERNESTINA [id number] 04:12:12 Test Item Value Reference Range Interpretation Comments PHOSPHORUS (BEAKER) (test code = 2.8 mg/dL 2.3-4.7 604) Director Of Sales Support ID - ERNESTINA [id number] 04:12:11 Test Item Value Reference Range Interpretation Comments MAGNESIUM (BEAKER) (test code = 2.1 mg/dL 1.6-2.6 627) Director Of Sales Support ID - ERNESTINA GCBC W/PLT COUNT & AUTO [id number] 03:59:11 Test Item Value Reference Range Interpretation [...] (test code = 2801) CT, BRAIN, WITHOUT [id number] 18:25:00Unlisted Reason for Exam - Click Yes and Enter Reason Below->YesUnlisted Reason for Exam->postoperative [facility] : 1940 Sex: MFINAL REPORT CT, BRAIN, WITHOUT CONTRAST CLINICAL INDICATION: Unlisted Reason for Exampostoperative COMPARISON: March 14, 2021 [...] No hydrocephalus. Orbits are within normal limits. Atelectaticchanges of the right maxillary sinus, which is partially opacified. IMPRESSION: Expected postoperativ e appearance status post post right frontal parietal craniectomy for drainage of extra-axial collection with subdural drain in place. If there is persistent clinical concern for intracranial pathology,MR examination is recommended for further characterization. Signed: Shanelle Doe MDReport Verified Date/Time: 03/31/2021 18:25:50 Electronically signed by: SHANELLE DOE MD on 206:25 PMSARS-COV2/RT-PCR ([facility])2021-03-31 12:51:25 Test Item Value Reference Range Interpretation Comments SARS-COV2/RT-PCR Negative Negative The SARS-Co V-2 target (test code = nucleic acids a re not 4430220) detected in thi s specimen. Negative result [...] revoked sooner. Fact Sheet for Healthcare Providers: https://www.Ulabox.Civolution om/Documents/Xpert%20Xpress%20SARS%20CoV-2/Fact%20Sheets/3023802%99CVHX-MHJ-3%2 0HEALTHCARE%20PROVIDERS%20FACT%20SHEET.pdf Fact Sheet for Healthcare Patients: https://www.Mobile Multimedia/Documents/Xpert%20X press%20SARS%20CoV-2/Fact%20Sheets/3023801%03LUUT-GHE-0%20PATIENT%20FACT%20SHEE T.pdfMR, BRAIN, [id number] 10:26:00Unlisted Reason for Exam - Click Yes and Enter Reason Below->Yes Unlisted Reason for Exam->ICHetiology [facility] : 1940 Sex: MFINAL REPORT MRI Brain [...] MDReport Verified Date/Time: 03/31/2021 10:26:28 Reading Location: [facility] C013V Neuro Reading Room [id number] 01:30:19 Test Item Value Reference Range Interpretation Comments PTT (test code = 44.4 See_Comment H [Automated message] 77392-4) The system [employer] generated this result transmitted ref erence range: 22.5 - 3 6.0 seconds. The reference range was not used to int erpret this result as normal/abnormal . Lab Interpretation (test Abnormal code = 42511-6) [facility] CenterAPTT2022-01-12 01:30:19 Test Item Value Reference Range Interpretation Comments PARTIAL THROMBOPLASTIN TIME 44.4 seconds 22.5-36.0 H (BEAKER) (test code = 760) Prothrombin time/[id number] 01:29:16 Test Item Value Reference Interpretation Comments Range Protime (test code = 16.2 See_Comment H [Autom ated 3322-2) message] The system which generated this result transmitted reference range : 11.9 - 14.2 seconds. The reference range was not used to interpret this result as normal/abnormal . INR (test code = 1.32 See_Comment [Automated 1381-6) message] The system which generated this result transmitted reference range : <=5.90. The reference range was not used to interpret this result as normal/abnormal . MIRLANDE (test code = RECOMMENDED MIRLANDE) COUMADIN/WARFARIN INR THERAPY RANGESSTANDARD DOSE: 2.0 - 3.0 Includes: PROPHYLAXIS for venous thrombosis, systemic embolization; TREATMENT for venous thrombosis and/or pulmonary embolus.HIGH RISK: Target INR is 2.5-3.5 for patients with mechanical heart valves. Lab Interpretation Abnormal (test code = 09536-4) [facility] CenterPROTHROMBIN TIME/[id number] 01:29:16 Test Item Value Reference Range Interpretation Comments PROTIME (BEAKER) 16.2 seconds 11.9-14.2 H (test code = 759) INR (BEAKER) (test 1.32 See_Comment [Automat ed message] code = 370) The system [employer] generated this result transmitted ref erence range: <=5.90. The reference range was not used to int erpret this result as normal/abnormal . RECOMMENDED COUMADIN/WARFARIN INR THERAPY RANGESSTANDARD DOSE: 2.0 - 3.0 Includes: PROPHYLAXIS for venous thrombosis, systemic embolization; TREATMENT for venous thrombosis and/or pulmonary embolus.HIGH RISK: Target INR is 2.5-3.5 for patients with mechanical heart valves.Comprehensive metabolic panel 2021-03-31 01:28:15 Test Item Value Reference Range Interpretation Comments Protein, Total (test 6.8 See_Comment [Autom ated code = 2885-2) message] The system which generated this result transmit madisyn reference range : 6.0 - 8.3 gm/dL . The reference range was not u sed to interpret th is result as normal/abnormal . Albumin (test code = 3.1 g/dL 3.5-5.0 L 95966-5) Alkaline Phosphatase 93 U/L 40-150 (test code = 6768-6) Total Bilirubin (test 0.8 mg/dL 0.2-1.2 code = 1975-2) Sodium (test code = 132 meq/L 136-145 L 2951-2) Potassium (test code 3.3 meq/L 3.5-5.1 L = 2823-3) Chloride (test code = 99 meq/L 98-107 2075-0) CO2 (test code = 24 meq/L 22-29 8-9) BUN (test code = 21 mg/dL 7-21 3094-0) Creatinine (test code 0.71 mg/dL 0.57-1.25 = 2160-0) Glucose (test code = 126 mg/dL 70-105 H 2345-7) Calcium (test code = 8.9 mg/dL 8.4-10.2 65082-4) AST (test code = 74 U/L 5-34 H 1920-8) ALT (test code = 155 U/L 6-55 H 1742-6) EGFR (test code = 107 mL/min/1.73 [place] [address]-3) NOT ACCURATE CREATININE CLEARANCE IN PREDICTING GLOMERULAR FILTRATION RATE . ESTIMATED GFR I S NOT APPLICABLE FOR DIALYSIS PATIEN TS. MIRLANDE (test code = MIRLANDE) Director Of Sales Support ID - PIAYA L Lab Interpretation Abnormal (test code = 98617-5) [facility] CenterC-Reactive [id number] 01:28:15 Test Item Value Reference Range Interpretation Comments CRP (test code = 676) 11.47 mg/dL 0.00-0.50 H MIRLANDE (test code = MIRLANDE) Director Of Sales Support ID - PIAYA L Lab Interpretation (test Abnormal code = 97796-4) [facility] CenterCOMPREHENSIVE METABOLIC [id number] 01:28:15 Test Item Value Reference Range Interpretation [...] S NOT APPLICABLE FOR DIALYSIS PATIEN TS. Director Of Sales Support ID - PIAYA LC-REACTIVE [id number] 01:28:15 Test Item Value Reference Range Interpretation Comments C-REACTIVE PROTEIN (BEAKER) (test 11.47 mg/dL 0.00-0.50 H code = 676) Director Of Sales Support ID - PIAYA LCBC W/PLT COUNT & AUTO [id number] 01:08:56 Test Item Value Reference Range Interpretation [...] (BEAKER) (test code = 2801) BASIC METABOLIC [id number] 05:07:26 Test Item Value Reference Range Interpretation [...] S NOT APPLICABLE FOR DIALYSIS PATIEN TS. Director Of Sales Support ID - DBPOC-Glucose [id number] 11:13:30 Test Item Value Reference Range Interpretation Comments POC-Glucose Meter (test 152 mg/dL 70-110 H : TE STED AT [facility] code = 1538) [address] [facility] [place], [address]: Director Of Sales Support/Techni mei ID = [id number] for Jassi (contract), Syt ezra Lab Interpretation (test Abnormal code = 29890-2) [facility] CenterPOCT-GLUCOSE [id number] 11:13:30 Test Item Value Reference Range Interpretation Comments POC-GLUCOSE METER 152 mg/dL 70-110 H : TESTED A T [facility] [address] (BEAKER) (test code [facility], = 1538) [address]: Director Of Sales Support/Techni mei ID = [id number] for Shelby moses (contract), Syt ezra CT, BRAIN, WITHOUT [id number] 10:46:00Unlisted Reason for Exam - Click Yes and Enter Reason Below->No [facility] : 1940 Sex: MFINAL [...] is recommended for further characterization. Signed: Shanelle Doe MDReport Verified Date/Time: 03/14/2021 10:46:46 SARS-COV2/RT-PCR ([facility])2021-03-14 07:03:48 Test Item Value Reference Range Interpretation Comments SARS-COV2/RT-PCR Negative Negative The SARS-Co V-2 target (test code = nucleic acids a re not 3352135) detected in thi s specimen. Negative result [...] individuals suspected of CO VID-19 [facility]. This test has been authorized [...] revoked sooner. Fact Sheet for Healthcare Providers: https://www.Ulabox.Nutricate m/Documents/Xpert%20Xpress%20SARS%20CoV-2/Fact%20Sheets/3023802%74IILY-UDP-0%20 HEALTHCARE%20PROVIDERS%20FACT%20SHEET.pdf Fact Sheet for Healthcare Patients: https://www.Mobile Multimedia/Documents/Xpert%20Xp ress%20SARS%20CoV-2/Fact%20Sheets/3023801%34SFKT-YOV-5%20PATIENT%20FACT%20SHEET .pdfPROTHROMBIN TIME/[id number] 06:29:21 Test Item Value Reference Range Interpretation Comments PROTIME (BEAKER) 13.7 seconds 11.9-14.2 (test code = 759) INR (BEAKER) (test 1.07 See_Comment [Automat ed message] code = 370) The system [employer] generated this result transmitted ref erence range: <=5.90. The reference range was not used to int erpret this result as normal/abnormal . RECOMMENDED COUMADIN/WARFARIN INR THERAPY RANGESSTANDARD DOSE: 2.0 - 3.0 Includes: PROPHYLAXIS for venous thrombosis, systemic embolization; TREATMENT for venous thrombosis and/or pulmonary embolus.HIGH RISK: Target INR is 2.5-3.5 for patients with mechanical heart valves.POCT-GLUCOSE [id number] 06:04:12 Test Item Value Reference Range Interpretation Comments POC-GLUCOSE METER 112 mg/dL 70-110 H : TESTED Gideon Jensen [facility] [address] ([place]) (test code = [place], 1538) [address]: Director Of Sales Support/Techni mei ID = [id number] for Ijeoma Pisano Thromboelastograph (TEG)2021-03-14 05:32:14 Test Item Value Reference Range Interpretation Comments TEG Activated Clotting 7.5 See_Comment H [Aut omated message] Time (test code = The system which 92884-1) generated this result transmitted ref erence range: 4.0 - 7. 0 minutes. The reference range was not used to int erpret this result as normal/abnormal . TEG Fibrinogen Activity 66.0 See_Comment [Au tomated message] (test code = 07309-3) The sy stem which generated this result transmitted ref erence range: 61.0 - 7 3.0 degrees. The reference range was not used to int erpret this result as normal/abnormal . TEG Platelet Aggregation 65.9 See_Comment H [A utomated message] (test code = 71448-0) The sy stem which generated this result transmitted ref erence range: 55.0 - 6 5.0 MM. The referen ce range was not u sed to interpret this result as normal/abnor mal. TEG Fibrinolysis (test 0.1 % 0.0-5.0 code = 22438-7) TEG-H Activated Clotting 7.0 See_Comment [A utomated message] Time (test code = 1411) The system which generated this result transmitted ref erence range: 4.0 - 7. 0 minutes. The reference range was not used to int erpret this result as normal/abnormal . TEG-H Fibrinogen 67.7 See_Comment [Automated message] Activity (test code = The sy stem which 1412) generated this result transmitted ref erence range: 61.0 - 7 3.0 degrees. The reference range was not used to int erpret this result as normal/abnormal . TEG-H Platelet 66.5 See_Comment H [Automated m essage] Aggregation (test code = The system which 1413) generated this result transmitted ref erence range: 55.0 - 6 5.0 MM. The referen ce range was not u sed to interpret this result as normal/abnor mal. TEG-H Fibrinolysis (test 0.0 % 0.0-5.0 code = 1414) Lab Interpretation (test Abnormal code = 74245-8) [facility] CenterTHROMBOELASTOGRAPH (TEG)2021-03-14 05:32:14 Test Item Value Reference Range [...] (test 0.0 % 0.0-5.0 code = 1414) [id number] 04:42:48 Test Item Value Reference Range Interpretation Comments PHOSPHORUS (BEAKER) 3.5 mg/dL 2.3-4.7 Specimen slightly (test code = 604) hemolyzed Director Of Sales Support ID - DBBASIC METABOLIC [id number] 04:42:48 Test Item Value Reference Range Interpretation [...] 697) EGFR (BEAKER) (test 93 mL/min/1.73 ESTIMA MADISYN GFR IS code = 1092) sq m NOT ACCURATE CREATININE CLEARANCE IN PREDICTING GLOMERULAR FILTRATION RATE . ESTIMATED GFR I S NOT APPLICABLE FOR DIALYSIS PATIEN TS. Director Of Sales Support ID - [id number] 04:42:47 Test Item Value Reference Range Interpretation Comments MAGNESIUM (BEAKER) 2.0 mg/dL 1.6-2.6 Specimen slightly (test code = 627) hemolyzed Director Of Sales Support ID - DBCBC W/PLT COUNT & AUTO [id number] 04:13:13 Test Item Value Reference Range Interpretation [...] = 2801) RAD, CHEST, 1 VIEW, NON [id number] 04:08:00Reason for exam:->COVIDShould this be performed at the bedside?->Yes [facility] 1940 Sex: [...] for COVID-19 COVED-19 pneumonia persists. Signed: Mary Perezeport Verified Date/Time: 03/14/2021 04:08:19 Electronicallysigned by: MARY PEREZ MD on 03/14/2021 04:08 AMPOCT-GLUCOSE [id number] 12:58:28 Test Item Value Reference Range Interpretation Comments POC-GLUCOSE METER 130 mg/dL 70-110 H : [facility] (BE[facility]ER[facility] (test code = [facility] [place] [facility], 1538) [address]: Director Of Sales Support/Techni mei ID = [id number] for ALDO PASTRANA Hemoglobin [id number] 08:47:58 Test Item Value Reference Range Interpretation Comments Hemoglobin A1C (test code = 4548-4) 6.4 % 4.3-6.1 H Lab Interpretation (test code = Abnormal 14604-8) [facility] CenterHEMOGLOBIN [id number] 08:47:58 Test Item Value Reference Range Interpretation Comments HEMOGLOBIN A1C (BEAKER) (test code = 6.4 % 4.3-6.1 H 368) BASIC METABOLIC [id number] 06:00:48 Test Item Value Reference Range Interpretation [...] 697) EGFR (BEAKER) (test 94 mL/min/1.73 ESTIMA MADISYN GFR IS code = 1092) sq m NOT ACCURATE CREATININE CLEARANCE IN PREDICTING GLOMERULAR FILTRATION RATE . ESTIMATED GFR I S NOT APPLICABLE FOR DIALYSIS PATIEN TS. Director Of Sales Support ID - DBCBC W/PLT COUNT & AUTO [id number] 04:01:55 Test Item Value Reference Range Interpretation [...] 0-1 PERCENT (BEAKER) (test code = 2801) Prepare Leuko-Red [id number] 23:55:00 Test Item Value Reference Range Interpretation Comments Unit ABO (test code = 1260154) A Pos UNIT NUMBER (test code = [id number] 934-0) Status (test code = 8689832) TX_TIMEINCHART Blood Bank Product (test code PLATELETS = 2263) PRODUCT CODE (test code = C3517N81 933-2) [facility] CenterPOCT-GLUCOSE [id number] 18:14:42 Test Item Value Reference Range Interpretation Comments POC-GLUCOSE METER 134 mg/dL 70-110 H : TESTED A T [facility] [address] ([place]) (test code = [facility] [place] [facility], 1538) [address]: Director Of Sales Support/Techni mei ID = [id number] for GAVIN WALKER POCT-GLUCOSE [id number] 12:13:11 Test Item Value Reference Range Interpretation Comments POC-GLUCOSE METER 126 mg/dL 70-110 H : Notified RN/MD: ([place]) (test code = TESTED AT [facility] 6720 1538) [facility] [address]: Director Of Sales Support/Techni mei ID = [id number] for ERICA TIAN CT, BRAIN, WITHOUT [id number] 06:54:00Unlisted Reason for Exam - Click Yes and Enter Reason Below->No [facility] : 1940 Sex: MFINAL [...] MDReport Verified Date/Time: 02/26/2021 06:54:39 Reading Location: [facility] [address] Radiology Reading Room POCT-GLUCOSE [id number] 06:34:34 Test Item Value Reference Range Interpretation Comments POC-GLUCOSE METER 130 mg/dL 70-110 H : TESTED A T [facility] [address] (BEAKER) (test code = [place], [address]) [address]: Director Of Sales Support/Techni mei ID = [id number] for DILMA BLANCO [id number] 04:09:05 Test Item Value Reference Range Interpretation Comments PHOSPHORUS (BEAKER) (test code = 3.3 mg/dL 2.3-4.7 604) Director Of Sales Support ID - ERNESTINA GBASIC METABOLIC [id number] 04:09:04 Test Item Value Reference Range Interpretation [...] 697) EGFR (BEAKER) (test 97 mL/min/1.73 ESTIMA MADISYN GFR IS code = 1092) sq m NOT ACCURATE CREATININE CLEARANCE IN PREDICTING GLOMERULAR FILTRATION RATE . ESTIMATED GFR I S NOT APPLICABLE FOR DIALYSIS PATIEN TS. Director Of Sales Support ID - ERNESTINA [id number] 04:09:04 Test Item Value Reference Range Interpretation Comments MAGNESIUM (BEAKER) (test code = 2.3 mg/dL 1.6-2.6 627) Director Of Sales Support ID - ERNESTINA GCBC W/PLT COUNT & AUTO [id number] 03:44:36 Test Item Value Reference Range Interpretation [...] PERCENT (BEAKER) (test code = 2801) POCT-GLUCOSE [id number] 00:06:22 Test Item Value Reference Range Interpretation Comments POC-GLUCOSE METER 146 mg/dL 70-110 H : TESTED A T [facility] 67[address] ([place]) (test code = [facility], 153) [address]: Director Of Sales Support/Techni mei ID = [id number] for DILMA BLANCO POCT-GLUCOSE [id number] 12:07:35 Test Item Value Reference Range Interpretation Comments POC-GLUCOSE METER 126 mg/dL 70-110 H : Notified RN/MD: ([place]) (test code = TESTED AT [facility] 6720 1538) [facility], [address]: Director Of Sales Support/Techni mei ID = [id number] for ERICA TIAN SARS-COV2/RT-PCR ([facility])2021-02-25 07:50:40 Test Item Value Reference Range Interpretation Comments SARS-COV2/RT-PCR Negative Negative The SARS-Co V-2 target (test code = nucleic acids a re not 4970651) detected in thi s specimen. Negative result [...] revoked sooner. Fact Sheet for Healthcare Providers: https://www.Ulabox.Nutricate m/Documents/Xpert%20Xpress%20SARS%20CoV-2/Fact%20Sheets/3023802%31OCAE-TXS-5%20 HEALTHCARE%20PROVIDERS%20FACT%20SHEET.pdf Fact Sheet for Healthcare Patients: https://www.Mobile Multimedia/Documents/Xpert%20Xp ress%20SARS%20CoV-2/Fact%20Sheets/3023801%75PLKT-MDB-2%20PATIENT%20FACT%20SHEET .pdfCT, BRAIN, WITHOUT [id number] 07:28:00Neurosurgical evaluation preoperativelyReason for exam:->Intracranial hemorrhage [facility] : 1940 Sex: MFINAL [...] MDReport Verified Date/Time: 02/25/2021 07:28:24 Reading Location: [facility] [address] Radiology Reading Room POCT- GLUCOSE [id number] 06:01:17 Test Item Value Reference Range Interpretation Comments POC-GLUCOSE METER 102 mg/dL 70-110 : TESTED A T [facility] 67[address] (BEAKER) (test code [place], = 1538) [address]: Director Of Sales Support/Techni mei ID = [id number] for Pa Naranjo [id number] 04:07:22 Test Item Value Reference Range Interpretation Comments MAGNESIUM (BEAKER) (test code = 2.1 mg/dL 1.6-2.6 627) Director Of Sales Support ID - ISAK [id number] 04:07:22 Test Item Value Reference Range Interpretation Comments PHOSPHORUS (BEAKER) (test code = 2.9 mg/dL 2.3-4.7 604) Director Of Sales Support ID Valerie PARISI MBASIC METABOLIC [id number] 04:07:21 Test Item Value Reference Range Interpretation [...] S NOT APPLICABLE FOR DIALYSIS PATIEN TS. Director Of Sales Support ID Valerie PARISI MCBC (HEMOGRAM ONLY)2021-02-25 03:47:50 Test Item Value [...] = 413) RAD, CHEST, 1 VIEW, NON [id number] 02:13:00Reason for exam:- >weaknessShould this be performed at the bedside?->Yes [facility] 1940 Sex: MFINAL [...] edema or acute bony abnormality. Signed: Sebastian Metzort Verified Date/Time: 02/25/2021 02:13:07 POCT- GLUCOSE [id number] 01:15:35 Test Item Value Reference Range Interpretation Comments POC-GLUCOSE METER 108 mg/dL 70-110 : TESTED A T [facility] 6720 (BEAKER) (test code [facility], = 1538) [address]: Director Of Sales Support/Techni mei ID = [id number] for Pa Naranjo [id number] 22:37:00 Test Item Value Reference Range Interpretation Comments Procalcitonin (test <0.05 See_Comment [Automa madisyn code = 87351-4) message] The system which generated this result transmit madisyn reference range : <0.05 ng/mL. Th e reference range was not used to interpret this result as normal/abnormal . MIRLANDE (test code = MIRLANDE) SEPSIS RISK (ng/mL)Low: 0.05-0.50Inter mediate: 0.51-2.00High: >=2.01 Lab Interpretation Normal (test code = 02446-4) [facility] CenterHzrakgHEJOYYXZJYKRQ5975-78-01 22:37:00 Test Item Value Reference Range Interpretation Comments PROCALCITONIN (BEAKER) (test code = < ng/mL <0.05 3036) SEPSIS RISK (ng/mL)Low: 0.05-0.50Intermediate: 0.51-2.00High: >=2.01Rapid drug screen, [id number] 22:15:49 Test Item Value Reference Range Interpretation Comments Barbiturate Screen Negative Negative (test code = 54896-2) Benzodiazepine Screen Negative Negative (test code = 90072-6) Cocaine (Metab.) Negative Negative Screen (test code = 3397-7) Methadone Screen (test Negative Negative code = 62970-1) Opiate Screen (test Negative Negative code = 56428-6) Cannabinoid Screen Negative Negative (test code = 56330-0) Amph/Methamph Screen Negative Negative (test code = 93542-3) Phencyclidine Screen Negative Negative (test code = 65229-4) pH, UA (test code = 7.0 5.0-8.0 5803-2) MIRLANDE (test code = MIRLANDE) DRUG CUTOFF CONC.Cocaine 300 ng/mL Cannabinoid 50 ng/mLBenzodiazepine 200 ng/mLBarbiturate 200 ng/mLPhencyclidine 25 ng/mLOpiate 300 ng/mLMethadone 300 ng/mLAmphetamine/ 1000 ng/mL Methamphetamine This assay provides an unconfirmed qualitative test result for the clinical management of patients in emergency situations. Chain of custody not maintained. Some rcfg-pym-zahatsw medications, as well as adulterants, may cause inaccurate results. Clinical correlation should be applied. A more comprehensive drug screen or confirmation of a detected drug may be performed upon request.Director Of Sales Support ID - BS Lab Interpretation Normal (test code = 62265-2) [facility] Center[facility] SCREEN, [id number] 22:15:49 Test Item Value Reference Range Interpretation [...] situations. Chain of custody not maintained. Some jnpn-afm-udzlsxy medications, as well as adulterants, may cause inaccurate results. Clinical correlation should be applied. A more comprehensive drug screen or confirmation of a detected drug may be performed upon request.Director Of Sales Support ID - BSHepatic function [id number] 22:14:58 Test Item Value Reference Range Interpretation Comments Protein, Total (test 7.4 See_Comment [Autom ated code = 2885-2) message] The system which generated this result transmit madisyn reference range : 6.0 - 8.3 gm/dL . The reference range was not u sed to interpret th is result as normal/abnormal . Albumin (test code = 3.9 g/dL 3.5-5.0 03300-8) Total Bilirubin (test 0.8 mg/dL 0.2-1.2 code = 1975-2) Bilirubin, Direct 0.5 mg/dL 0.1-0.5 (test code = 1968-7) Alkaline Phosphatase 108 U/L 40-150 (test code = 6768-6) AST (test code = 17 U/L 5-34 1920-8) ALT (test code = 13 U/L 6-55 1742-6) MIRLANDE (test code = MIRLANDE) Director Of Sales Support ID - BS Lab Interpretation Normal (test code = 12539-8) [facility] CenterHEPATIC FUNCTION [id number] 22:14:58 Test Item Value Reference Range Interpretation [...] (test code = 13 U/L 6-55 347) Director Of Sales Support ID - [id number] 22:08:14 Test Item Value Reference Range Interpretation Comments PARTIAL THROMBOPLASTIN TIME 40.8 seconds 22.5-36.0 H (BEAKER) (test code = 760) PROTHROMBIN TIME/[id number] 22:07:16 Test Item Value Reference Range Interpretation Comments PROTIME (BEAKER) 15.3 seconds 11.9-14.2 H (test code = 759) INR (BEAKER) (test 1.23 See_Comment [Automat ed message] code = 370) The system [employer] generated this result transmitted ref erence range: <=5.90. The reference range was not used to int erpret this result as normal/abnormal . RECOMMENDED COUMADIN/WARFARIN INR THERAPY RANGESSTANDARD DOSE: 2.0 - 3.0 Includes: PROPHYLAXIS for venous thrombosis, systemic embolization; TREATMENT for venous thrombosis and/or pulmonary embolus.HIGH RISK: Target INR is 2.5-3.5 for patients with mechanical heart valves.Lactic Acid, [id number] 22:04:34 Test Item Value Reference Range Interpretation Comments Lactate, Art (test code = 1.1 mmol/L 0.5-2.2 2874) MIRLANDE (test code = MIRLANDE) Director Of Sales Support ID - BS Lab Interpretation (test Normal code = 69192-7) [facility] CenterLACTIC ACID, [id number] 22:04:34 Test Item Value Reference Range Interpretation Comments LACTATE BLOOD ARTERIAL (2) 1.1 mmol/L 0.5-2.2 (BEAKER) (test code = 2874) Director Of Sales Support ID - BSUrinalysis Microscopic [id number] 21:54:39 Test Item Value Reference Range Interpretation Comments RBC, UA (test 5 See_Comment [Automated me ssage] code = 41734-4) The system [facility] generated this result transmitted ref erence range: /HPF. Th e reference range was not used to int erpret this result as normal/abnormal . WBC, UA (test <1 See_Comment [Automated me ssage] code = 5821-4) The system [facility] generated this result transmitted ref erence range: /HPF. Th e reference range was not used to int erpret this result as normal/abnormal . Bacteria, UA None Seen (test code = 19335-2) Crystals, Urine None Seen (test code = 42540-1) MIRLANDE (test code Director Of Sales Support ID - tech = MIRLANDE) [facility] CenterURINALYSIS [id number] 21:54:39 Test Item Value Reference Range Interpretation Comments RBC UA (BEAKER) (test code = 519) 5 /HPF WBC UA (BEAKER) (test code = 520) < /HPF BACTERIA (BEAKER) (test code = 517) None Seen CRYSTALS, URINE (BEAKER) (test code None Seen = 1521) Director Of Sales Support ID - techUrinalysis with Microscopic If [id number] 21:52:51 Test Item Value Reference Range Interpretation Comments Color, UA (test code = Yellow 5778-6) Clarity, UA (test code = Clear 5767-9) Specific [place], UA (test 1.015 1.001-1.035 code = 5811-5) pH, UA (test code = 7.0 5.0-8.0 5803-2) Protein, UA (test code = 50 mg/dL Negative A 68252-1) Glucose, UA (test code = Negative Negative 365) Ketones, UA (test code = Negative Negative 2514-8) Bilirubin, UA (test code = Negative Negative 83550-9) Blood, UA (test code = Small Negative A 69034-6) Nitrite, UA (test code = Negative Negative 5802-4) Leukocytes, UA (test code Negative Negative = 5799-2) Urobilinogen, UA (test 0.2 mg/dL 0.2-1.0 code = 95553-7) Specimen Source (test code = 2795) MIRLANDE (test code = MIRLANDE) Director Of Sales Support ID - [auto] Lab Interpretation (test Abnormal code = 63457-6) [facility] CenterURINALYSIS WITH MICROSCOPIC IF [id number] 21:52:51 Test Item Value Reference Range Interpretation [...] = 463) SOURCE(BEAKER) (test code = 2795) Director Of Sales Support ID - [auto]CT, CTA [id number] 17:40:00Reason for Exam:->aaa Addendum BeginsREPORT STATUS:A Addendum: Several small cysts are seen in the left lung base. No free intraperitoneal air. I otherwise agree with the previously described non vascular findings. End of addendum. Signed: Armando Proctor MDReport Verified Date/Time: 03/15/2019 17:40:34 Reading Location: [facility] Reading RoomAddendum EndsFINAL REPORT CT angiography of the abdominal aorta and pelvic arteries, 15 March 2019 INDICATION: This is a 78 year old male with diagnosis of abdominal aortic aneurysm presents for assessment. Per [facility], patient is said to have right renal [...] in the EPIC system for the amount androute of contrast [...] commoniliac artery is approximately 7 cm, and inside sales representative dimension is approximately 2.2 x 2.2 [...] dictated regarding the non-vascular findings by the [employer] Radiologist. Signed: Bill Fountain MDReport Verified Date/Time: 03/15/2019 11:50:43 [id number] 10:21:00 Test Item Value Reference Range Interpretation Comments POC-CREATININE 0.9 mg/dL 0.6-1.3 TESTED AT [facility] 67[address] ([place]) (test [place] code = 1859) [address] POC-EGFR ([place]) 82 mL/min/1.73M2 (test code = 1860) TISSUE [id number] 17:04:00Surgical Pathology Report Case: [id number] Authorizing Provider: Danial Szymanski, Collected:10/01/2018 0904 [facility] Re[facility]: 10/01/2018 1008 PERIOPERATIVE SERVICES Pathologist: Zeferino Warner MD Specimen: Plaque, RIGHT CAROTID PLAQUE/ ENDARTERECTOMY ARTERY, RIGHT CAROTID, ENDARTERECTOMY:CALCIFIC ATHEROSCLEROTIC PLAQUE Signing Pathologist Direct Phone Line: [phone] signed by Zeferino Warner MD on 10/04/2018 at 5:04 [id number]; [id number]. Right carotid plaque/endarterectomyThe specimen is received in formalin and consists of a portion of cylindrical calcified tissue measuring 4.5 x 0.9 x 0.9 cm. Airplane Captain sections are in one cassette for de calcification. CB/plPerformedPLATELET AGGREGATION: FUNCTION [id number] 14:42:00 Test Item Value Reference Range Interpretation Comments WEAK ADP 56 % 60-91 L RESULT(BEAKER) (test code = 2135) PLATELET FUNCTION 50-59% indicates mild SCREEN INTERP platelet dysfunction (BEAKER) (test code = 2173) [id number] Genevieve Lin MD (BEAKER) (test code = (electronic signature) 0507) PLATELET COUNT AGG 159 K/CU MM 150-450 (BEAKER) (test code = 2656) Platelet Function Screen results may be falsely low with platelet counts<100,000/cu mm.for patients on clopidogrel in past two weeksPOTASSIUM- STAT [id number] 12:04:00 Test Item Value Reference Range Interpretation Comments POTASSIUM (BEAKER) (test code = 4.0 meq/L 3.6-5.5 379) GLUCOSE-STAT [id number] 12:04:00 Test Item Value Reference Range Interpretation Comments GLUCOSE RANDOM (BEAKER) (test code 139 mg/dL 70-110 H = 652) HGB/HCT (H&H) - STAT [id number] 12:04:00 Test Item Value Reference Range Interpretation Comments HEMOGLOBIN (BEAKER) (test code = 10.5 g/dL 13.0-16.8 L 410) HEMATOCRIT (BEAKER) (test code = 31.0 % 40.0-50.0 L 411) [id number] 06:25:00 Test Item Value Reference Range Interpretation [...] 2.5-3.5 for patients wiht mechanical heart valves.POCT-GLUCOSE [id number] 06:02:00 Test Item Value Reference Range Interpretation Comments POC-GLUCOSE METER 111 mg/dL 70-[address] [facility] 67[address] ([place]) (test code = [place] 1538) [address] [id number] 12:11:00 Test Item Value Reference Range Interpretation Comments PARTIAL THROMBOPLASTIN TIME 67.7 seconds 22.5-36.0 H (BEAKER) (test code = 760) PROTHROMBIN TIME/[id number] 12:09:00 Test Item Value Reference Range Interpretation [...] for patients wiht mechanical heart valves.BASIC METABOLIC [id number] 12:09:00 Test Item Value Reference Range Interpretation [...] 697) EGFR (BEAKER) (test 85 mL/min/1.73 ESTIMA MADISYN GFR IS code = 1092) sq m NOT ACCURATE CREATININE CLEARANCE IN PREDICTING GLOMERULAR FILTRATION RATE . ESTIMATED GFR I S NOT APPLICABLE FOR DIALYSIS PATIEN TS. CBC W/PLT COUNT & AUTO [id number] 11:53:00 Test Item Value Reference Range Interpretation [...] PERCENT (BEAKER) (test code = 2801) TISSUE [id number] 14:34:00Surgical Pathology Report Case: [id number] Authorizing Provider: Danial Szymanski, Collected: 09/12/2018 0910 Ordering Location: [facility] Received: 09/12/2018 1105 PERIOPERATIVE SERVICES Pathologist: Zeferino Warner MD Specimen: Plaque, LEFT CAROTID ARTERY PLAQUE ARTERY, LEFT CAROTID, ENDARTERECTOMY:CALCIFIC ATHEROSCLEROTIC PLAQUE WITH INTRAPLAQUE HEMORRHAGE Signing Pathologist Direct Phone Line: [phone] signed by Zeferino Warner MD on 09/18/2018 at 2:34 [id number] and postop diagnosis: left carotid stenosisLeft carotid artery plaqueReceived in saline labeled with the patient's name, accession number and "plaque" is a bifurcated, previously incised portion of yellow plaque measuring 3.2 x 1.0 x 0.5 cm. The specimen is serially sectioned to reveal focal areas of calcification measuring up to 0.3 cm in thickness. There are also focal areas of hemorrhage and necrosis. Airplane Captain sections are submitted in A1, following decalcification. CG/pl PerformedTSH/FREE T4 IF [id number] 05:37:00 Test Item Value Reference Range Interpretation Comments THYROID STIMULATING HORMONE 0.76 uIU/mL 0.35-4.94 (BEAKER) (test code = 772) TROPONIN [id number] 05:01:00 Test Item Value Reference Range Interpretation [...] failure, acidosis, acute neurological disease, and persistent tachyarrhythmia.[id number] 04:53:00 Test Item Value Reference Range Interpretation Comments MAGNESIUM (BEAKER) (test code = 2.0 mg/dL 1.6-2.6 627) BASIC METABOLIC [id number] 04:53:00 Test Item Value Reference Range Interpretation [...] 697) EGFR (BEAKER) (test 93 mL/min/1.73 ESTIMA MADISYN GFR IS code = 1092) sq m NOT ACCURATE CREATININE CLEARANCE IN PREDICTING GLOMERULAR FILTRATION RATE . ESTIMATED GFR I S NOT APPLICABLE FOR DIALYSIS PATIEN TS. [id number] 04:53:00 Test Item Value Reference Range Interpretation [...] (test code = 413) CT, BRAIN, WITHOUT [id number] 18:45:00FINAL REPORT CT, BRAIN, WITHOUT CONTRAST CLINICAL [...] is recommended for further characterization. Signed: Shanelle Doe MDReport Verified Date/Time: 09/13/2018 18:45:50 Reading Location: [facility] C0[facility] Reading Room ONIN [id number] 16:04:00 Test Item Value Reference Range Interpretation Comments TROPONIN I ([place]) (test code = 397) < ng/mL 0.00-0.03 [...] acidosis, acute neurological disease, and persistent tachyarrhythmia.TROPONIN [id number] 10:03:00 Test Item Value Reference Range Interpretation Comments TROPONIN I ([place]) (test code = 397) < ng/mL 0.00-0.03 [...] WBC 0-0 (BEAKER) (test code = 413) [id number] 06:09:00 Test Item Value Reference Range Interpretation Comments MAGNESIUM (BEAKER) (test code = 1.7 mg/dL 1.6-2.6 627) BASIC METABOLIC [id number] 06:09:00 Test Item Value Reference Range Interpretation [...] 697) EGFR (BEAKER) (test 92 mL/min/1.73 ESTIMA MADISYN GFR IS code = 1092) sq m NOT ACCURATE CREATININE CLEARANCE IN PREDICTING GLOMERULAR FILTRATION RATE . ESTIMATED GFR I S NOT APPLICABLE FOR DIALYSIS PATIEN TS. TROPONIN [id number] 06:02:00 Test Item Value Reference Range Interpretation [...] failure, acidosis, acute neurological disease, and persistent tachyarrhythmia.[id number] 05:45:00 Test Item Value Reference Range Interpretation [...] normal platelet (test code = 2173) function [id number] Genevieve Lin MD (BEAKER) (test code = (electronic signature) 3235) PLATELET COUNT AGG 174 K/CU MM 150-450 (BEAKER) (test code = 4886) Platelet Function Screen results may be falsely low with platelet counts<100,000/cu mm.for patients on clopidogrel in past two weeksfor patients on clopidogrel in past two weeksfor patients on clopidogrel in past two weeksBAC METABOLIC [id number] 10:47:00 Test Item Value Reference Range Interpretation [...] 697) EGFR (BEAKER) (test 88 mL/min/1.73 ESTIMA MADISYN GFR IS code = 1092) sq m NOT ACCURATE CREATININE CLEARANCE IN PREDICTING GLOMERULAR FILTRATION RATE . ESTIMATED GFR I S NOT APPLICABLE FOR DIALYSIS PATIEN TS. PROTHROMBIN [id number] 10:27:00 Test Item Value Reference Range Interpretation [...] mechanical heart valves.CBC W/PLT COUNT & AUTO [id number] 10:19:00 Test Item Value Reference Range Interpretation [...] (BEAKER) (test code = 2801) BLOOD GAS, [id number] 10:15:00 Test Item Value Reference Range Interpretation [...] code = 381) 141 meq/L 135-148 POTASSIUM-STAT [id number] 08:48:00 Test Item Value Reference Range Interpretation Comments POTASSIUM (BEAKER) (test code = 3.7 meq/L 3.6-5.5 379) BLOOD GAS, [id number] 08:48:00 Test Item Value Reference Range Interpretation [...] (test code = 1819) 100.0 % GLUCOSE-STAT [id number] 08:48:00 Test Item Value Reference Range Interpretation Comments GLUCOSE RANDOM (BEAKER) (test code 117 mg/dL 70-110 H = 652) HGB/HCT (H&H) - STAT [id number] 08:48:00 Test Item Value Reference Range Interpretation Comments HEMOGLOBIN (BEAKER) (test code = 11.1 g/dL 13.0-16.8 L 410) HEMATOCRIT (BEAKER) (test code = 33.0 % 40.0-50.0 L 411) CALCIUM, [id number] 08:48:00 Test Item Value Reference Range Interpretation Comments CALCIUM IONIZED (BEAKER) (test 1.11 mmol/L 1.12-1.27 L code = 698) PH, BLOOD (BEAKER) (test code = 7.40 1810) BASIC METABOLIC [id number] 06:59:00 Test Item Value Reference Range Interpretation [...] 697) EGFR (BEAKER) (test 75 mL/min/1.73 ESTIMA MADISYN GFR IS code = 1092) sq m NOT ACCURATE CREATININE CLEARANCE IN PREDICTING GLOMERULAR FILTRATION RATE . ESTIMATED GFR I S NOT APPLICABLE FOR DIALYSIS PATIEN TS. [id number] 06:46:00 Test Item Value Reference Range Interpretation [...] 2.5-3.5 for patients wiht mechanical heart valves.PROTHROMBIN TIME/[id number] 06:45:00 Test Item Value Reference Range Interpretation [...] 2.5-3.5 for patients wiht mechanical heart valves.POCT-GLUCOSE [id number] 06:24:00 Test Item Value Reference Range Interpretation Comments POC-GLUCOSE METER 117 mg/dL 70-[address] [facility] [address] ([place]) (test code = [facility] 1538) [address] RAD, CHEST, 2 [id number] 13:32:00Reason for exam:->preop Should this be performed [...] MDReport Verified Date/Time: 09/04/2018 13:32:54 Reading Location: [facility] C013 Consult Reading Room CBC W/PLT COUNT & AUTO [id number] 12:57:00 Test Item Value Reference Range Interpretation [...]
--- NOTE | 2022-01-09 21:53 | RAD REPORT ---
EXAM DESCRIPTION: CT - CTHCSPWOC - 01/09/2022 9:40 pm CLINICAL HISTORY: Trauma, head and neck injury. fall COMPARISON: Head C Spine Mpr Wo Con dated 05/02/2021; Head C Spine Mpr Wo Con dated 03/13/2021; Head Brain Wo Cont dated 10/29/2021; Head Brain Wo Cont dated /, 10/29/2021 TECHNIQUE: Axial 5 mm thick images of the head were obtained. Axial 2 mm thick images of the cervical spine were obtained with sagittal and coronal reconstruction images generated and reviewed. All CT scans are performed using dose optimization technique as appropriate and may include automated exposure control or mA/KV adjustment according to patient size. FINDINGS: CT HEAD WITHOUT CONTRAST: No acute hemorrhage, hydrocephalus or extra-axial collection is identified.No areas of brain edema or midline shift. Cerebral atrophy with chronic small vessel ischemic changes. Cavum septum pellucidum. Shrunken right maxillary sinus.Remote right frontal craniectomy. Subjacent dural hypoattenuation cons istent with postoperative changes. CT CERVICAL SPINE WITHOUT CONTRAST: No fracture or subluxation.No prevertebral soft tissues swelling is identified. Multilevel degenerati ve changes are present in the spine. Varying degrees of neural foraminal narrowing noted. At least mi ld central spinal stenosis is identified at the C4-5 and C5-6 level. IMPRESSION: No acute intracranial or cervical spine findings.
--- NOTE | 2022-01-09 22:59 | EDPHYS ---
Physician Documentation [facility] Name: Kuldeep Ramsey Age: 81 yrs Sex: Male : 1940 Arrival Date: 01/09/2022 Time: 20:34 Bed 5 Private MD: ED Physician Maximo Owens HPI: 01/09 21:00 This 81 yrs old Male presents to ER via EMS with complaints of Fall Injury. cp 21:00 Details of fall: The patient fell from an upright position, while standing, and struck cp a tile surface. Onset: The symptoms/episode began/occurred just prior to arrival. Associated injuries: The patient sustained no obvious injury. Patient resides in retirement and brought to ED after reported fall getting out of shower. Patient with history of dementia. no complaints expressed. Historical: - Allergies: 20:39 Codeine; jb4 20:39 Geodon; jb4 20:39 Ibuprofen; jb4 20:39 Iodinated Contrast Media - IV Dye; jb4 20:39 Morphine; jb4 20:39 Seroquel; jb4 - Home Meds: 20:39 naltrexone Oral 1.5 mg [Active]; amlodipine oral [Active]; aspirin 81 mg Oral chew 1 jb4 tab once daily [Active]; atorvastatin 80 mg Oral tab [Active]; Lipitor Oral [Active]; Magnesium Oxide Oral [Active]; Omeprazole Oral for Gastroesophageal reflux, Heartburn [Active]; Plavix 75 mg Oral tab 1 tab once daily [Active]; potassium chloride 10 mEq Oral cpER 1 cap once daily [Active]; sotalol Oral [Active]; - PMHx: 20:39 CVA; Hypertension; Myocardial infarction; jb4 - PSHx: 20:39 Cholecystectomy; jb4 - Immunization history:: Adult Immunizations unknown. - Social history:: Smoking status: unknown. ROS: 21:05 Unable to obtain ROS due to baseline dementia. cp 21:05 Constitutional: Negative for fever. cp 21:05 Neuro: Negative for altered mental status, loss of consciousness. Exam: 21:10 Constitutional: The patient appears in no acute distress, alert, awake, comfortable, cp non-diaphoretic, non-toxic, well developed, well nourished. 21:10 Head/Face: Normocephalic, atraumatic. cp 21:10 Eyes: Periorbital structures: appear normal, Pupils: equal, round, and reactive to light and accomodation, Extraocular movements: intact throughout, Conjunctiva: normal, no exudate, no injection, Sclera: no appreciated abnormality, Lids and lashes: appear normal, bilaterally. 21:10 ENT: External ear(s): are unremarkable, Nose: is normal, Mouth: Lips: moist, Oral mucosa: pink and intact, moist, Posterior pharynx: Airway: no evidence of obstruction, patent. 21:10 Neck: C-spine: vertebral tenderness, is not appreciated, crepitus, is not appreciated, ROM/movement: is normal, is supple, without pain, no range of motions limitations. 21:10 Chest/axilla: Inspection: normal, Palpation: is normal, no crepitus, no tenderness. 21:10 Cardiovascular: Rate: normal, Rhythm: regular, Edema: is not appreciated, JVD: is not appreciated. 21:10 Respiratory: the patient does not display signs of respiratory distress, Respirations: normal, no use of accessory muscles, no retractions, labored breathing, is not present, Breath sounds: are clear throughout, no decreased breath sounds, no stridor, no wheezing. 21:10 Abdomen/GI: Inspection: abdomen appears normal, Palpation: abdomen is soft and non-tender, in all quadrants. 21:10 Musculoskeletal/extremity: Extremities: all appear grossly normal, with no appreciated pain with palpation. 21:10 Neuro: Orientation: no acute changes, per EMS, Mentation: no acute changes, per EMS, Motor: moves all fours, strength is normal, Sensation: is normal. 23:35 ECG was reviewed by the Attending Physician. cp Vital Signs: 20:35 BP 136 / 70; Pulse 75; Resp 16; Temp 97.8(TE); Pulse Ox 98% on R/A; Pain 0/10; jb4 21:30 BP 128 / 65; Pulse 64; Resp 16; Pulse Ox 98% on R/A; jb4 23:30 BP 152 / 66; Pulse 59; Resp 16; Pulse Ox 99% on R/A; jb4 10 00:30 BP 135 / 69; Pulse 56; Resp 16; Pulse Ox 99% on R/A; jb4 01:30 BP 148 / 68; Pulse 60; Resp 18; Pulse Ox 98% on R/A; jb4 MDM: 01/09 20:40 Patient medically screened. cp 01/10 01:00 Data reviewed: vital signs, nurses notes, lab test result(s), EKG, radiologic studies, cp CT scan. 01:00 Differential diagnosis: closed head injury, contusion, fracture, multiple trauma. Test cp interpretation: by ED physician or midlevel provider: ECG. Counseling: I had a detailed discussion with the patient and/or guardian regarding: the historical points, exam findings, and any diagnostic results supporting the discharge/admit diagnosis, lab results, radiology results, to return to the emergency department if symptoms worsen or persist or if there are any questions or concerns that arise at home. 01/09 23:13 Order name: Basic Metabolic Panel; Complete Time: 00:05 cp 01/10 00:05 Interpretation: Normal except: GLUC 110. 01/09 23:13 Order name: CBC with Diff; Complete Time: 00:05 01/10 00:05 Interpretation: Normal except: RBC 4.09; HGB 11.9; HCT 36.0; PLT 106; RDW 15.9; MN% cp 17.5. 01/09 20:44 Order name: CT Head C Spine cp 01/09 23:13 Order name: Magnesium; Complete Time: 00:05 cp 01/09 23:13 Order name: Urine Microscopic Only; Complete Time: 01:00 cp 01/10 01:00 Interpretation: Normal except: URBC 5-10. 01/10 00:08 Order name: Urine Dipstick-Ancillary; Complete Time: 00:29 EDMS 01/10 00:29 Interpretation: Normal except: UBLD 2+. cp 01/09 20:48 Order name: Head C Spine Mpr Wo Con; Complete Time: 22:56 EDMS 01/09 22:57 Interpretation: Report reviewed. 01/09 23:13 Order name: EKG; Complete Time: 23:13 cp 01/09 23:13 Order name: Cardiac monitoring; Complete Time: 23:36 cp 01/09 23:13 Order name: EKG - Nurse/Tech; Complete Time: 23:36 cp 01/09 23:13 Order name: IV Saline Lock; Complete Time: 23:27 cp 01/09 23:13 Order name: Labs collected and sent; Complete Time: 23:26 cp 01/09 23: Order name: O2 Per Protocol; Complete Time: : cp 01/09 23: Order name: O2 Sat Monitoring; Complete Time: cp 01/09 Order name: Urine Dipstick-Ancillary (obtain specimen); Complete Time: 00:07 cp EC/23 23:35 Rate is 55 beats/min. Rhythm is regular. UT interval is prolonged at 202 msec. QRS cp interval is prolonged at 170 msec. QT interval is normal. Interpreted by me. Reviewed by me. Administered Medications: 01/10 00:07 Drug: NS 0.9% 250 ml Route: IV; Rate: bolus; Site: right antecubital; jb4 Disposition Summary: 01/10/22 01:01 Discharge Ordered Location: Home(01/10/22 01:01) cp Problem: new(01/10/22 01:01) cp Symptoms: have improved(01/10/22 01:01) cp Condition: Stable(01/10/22 01:01) cp Diagnosis - Fall on same level, unspecified(01/10/22 01:01) cp Followup: cp - With: Private Physician - When: As needed - Reason: Worsening of condition Discharge Instructions: - Discharge Summary Sheet cp - Fall Prevention in the Home, Adult cp Forms: - Medication Reconciliation Form cp - Thank You Letter cp - Antibiotic Education cp - Prescription Opioid Use cp Addendum: 01/11/2022 04:16 Co-signature as Attending Physician, Maximo Owens MD I agree with the assessment and c waters plan of care. Signatures: Dispatcher [employer] Maximo Ashraf MD MD cha Page, Corey, PA PA cp Trey Bustamante, RN RN jb4 Corrections: (The following items were deleted from the chart) 01/09 23:11 22:58 Home cp cp 23:11 22:58 new cp cp 23:11 22:58 have improved cp cp 23:11 22:58 Stable cp cp 23:11 22:58 Fall on same level, unspecified cp cp
--- NOTE | 2022-01-09 22:59 | ER ---
Nurse's Notes [facility] Name: Kuldeep Ramsey Age: 81 yrs Sex: Male : 1940 Arrival Date: 01/09/2022 Time: 20:34 Bed 5 Private MD: Diagnosis: Fall on same level, unspecified Presentation: 01/09 20:35 Chief complaint: EMS states: Pt was getting out the shower and bent over to check his jb4 legs and fell forward into the door. Denies pain, Loc, or blood thinners. No visible injuries noted. Coronavirus screen: At this time, the client does not indicate any symptoms associated with coronavirus-19. Ebola Screen: No symptoms or risks identified at this time. Initial Sepsis Screen: Does the patient meet any 2 criteria? No. Patient's initial sepsis screen is negative. Does the patient have a suspected source of infection? No. Patient's initial sepsis screen is negative. Risk Assessment: Do you want to hurt yourself or someone else? Patient reports no desire to harm self or others. Onset of symptoms was January 09, 2022. Transition of care: patient was not received from another setting of care. 20:35 Method Of Arrival: EMS: [facility] jb4 20:35 Acuity: JEREMÍAS 4 jb4 Historical: - Allergies: 20:39 Codeine; jb4 20:39 Geodon; jb4 20:39 Ibuprofen; jb4 20:39 Iodinated Contrast Media - IV Dye; jb4 20:39 Morphine; jb4 20:39 Seroquel; jb4 - Home Meds: 20:39 naltrexone Oral 1.5 mg [Active]; amlodipine oral [Active]; aspirin 81 mg Oral chew 1 jb4 tab once daily [Active]; atorvastatin 80 mg Oral tab [Active]; Lipitor Oral [Active]; Magnesium Oxide Oral [Active]; Omeprazole Oral for Gastroesophageal reflux, Heartburn [Active]; Plavix 75 mg Oral tab 1 tab once daily [Active]; potassium chloride 10 mEq Oral cpER 1 cap once daily [Active]; sotalol Oral [Active]; - PMHx: 20:39 CVA; Hypertension; Myocardial infarction; jb4 - PSHx: 20:39 Cholecystectomy; jb4 - Immunization history:: Adult Immunizations unknown. - Social history:: Smoking status: unknown. Screenin:00 Abuse screen: Denies threats or abuse. Nutritional screening: No deficits noted. jb4 Tuberculosis screening: No symptoms or risk factors identified. Fall Risk None identified. Assessment: 20:43 General: Appears in no apparent distress. comfortable, Behavior is calm, cooperative, jb4 appropriate for age. Pain: Denies pain. Neuro: Level of Consciousness is awake, alert, obeys commands, Oriented to person, situation. Cardiovascular: Patient's skin is warm and dry. Respiratory: Airway is patent Respiratory effort is even, unlabored, Respiratory pattern is regular, symmetrical. GI: No signs and/or symptoms were reported involving the gastrointestinal system. : No signs and/or symptoms were reported regarding the genitourinary system. EENT: No signs and/or symptoms were reported regarding the EENT system. Derm: Skin is intact, Skin is pink, warm \T\ dry. Musculoskeletal: Circulation, motion, and sensation intact. Range of motion: intact in all extremities. 22:00 Reassessment: Patient appears in no apparent distress at this time. No changes from jb4 previously documented assessment. Patient and/or family updated on plan of care and expected duration. Pain level reassessed. 23:27 Reassessment: Patient appears in no apparent distress at this time. No changes from jb4 previously documented assessment. Patient and/or family updated on plan of care and expected duration. Pain level reassessed. Vital Signs: 20:35 BP 136 / 70; Pulse 75; Resp 16; Temp 97.8(TE); Pulse Ox 98% on R/A; Pain 0/10; jb4 21:30 BP 128 / 65; Pulse 64; Resp 16; Pulse Ox 98% on R/A; jb4 23:30 BP 152 / 66; Pulse 59; Resp 16; Pulse Ox 99% on R/A; jb4 01/10 00:30 BP 135 / 69; Pulse 56; Resp 16; Pulse Ox 99% on R/A; jb4 01:30 BP 148 / 68; Pulse 60; Resp 18; Pulse Ox 98% on R/A; jb4 ED Course: 01/09 20:34 Patient arrived in ED. wm 20:35 Trey Bustamante, TATI is Primary Nurse. jb4 20:35 Maximo Beasley PA is PHCP. cp 20:35 Maximo Owens MD is Attending Physician. cp 20:39 Triage completed. jb4 20:39 Arm band placed on right wrist. jb4 21:00 Patient has correct armband on for positive identification. Bed in low position. Call jb4 light in reach. Side rails up X 1. Client placed on continuous cardiac and pulse oximetry monitoring. NIBP monitoring applied. 21:42 Head C Spine Mpr Wo Con In Process Unspecified. EDMS 23:27 Basic Metabolic Panel Sent. jb4 23:27 CBC with Diff Sent. jb4 23:27 Magnesium Sent. jb4 23:27 Initial lab(s) drawn, by va, sent to lab. Inserted saline lock: 18 gauge in right jb4 antecubital area, using aseptic technique. Blood collected. 01/10 01:40 No provider procedures requiring assistance completed. IV discontinued, intact, jb4 bleeding controlled, No redness/swelling at site. Pressure dressing applied. Administered Medications: 00:07 Drug: NS 0.9% 250 ml Route: IV; Rate: bolus; Site: right antecubital; jb4 Medication: 01:40 VIS not applicable for this client. jb4 Outcome: 01/09 22:58 Discharge ordered by . cp 01/10 01:01 Discharge ordered by . cp 01:40 Discharged to home ambulatory. jb4 01:40 Condition: stable 01:40 Discharge instructions given to patient, Instructed on discharge instructions, follow up and referral plans. Demonstrated understanding of instructions, follow-up care. 01:40 Patient left the ED. jb4 Signatures: Dispatcher [employer] EDTX Maximo Beasley PA PA cp Bryson, James, RN RN jb4 Janki Oconnor
[2022-01-09 23:39] LABS: Absolute Lymphocytes (CBC) 1.5 K/uL (0.7-4.9); Lymphocytes % 28.8 % (15.3-44.8); MCV 87.8 fL (80-100); MPV 8.5 fL (7.6-11.3); RBC Red Blood Cell Count 4.09 M/uL (4.33-5.43)
[2022-01-09 23:53] LABS: Magnesium 2.2 mg/dL (1.8-2.4); Potassium 3.7 mmol/L (3.5-5.1)
[2022-01-09] MEDS ORDERED: NA CHLORIDE 0.9% 250 ML ONE (23:56)
[2022-01-10 00:08] LABS: Urine Blood 2+ (Negative); Urine Glucose Negative (Negative); Urine Protein Negative (Negative); Urine Specific Gravity 1.015 (1.005-1.030)
[2022-01-10 00:54] LABS: Urine Mucus Slight /HPF (None Seen)
[2022-01-10 01:52] VITALS: TEMP 97.8
[2022-01-10 01:56] VITALS: BP 148/68; O2SAT 98
--- NOTE | 2022-01-10 18:37 | EKG ---
Test Date: 2022-01-09 Test Time: 23:30:33 Acid Retort Operator: JERAD MEASUREMENT RESULTS: Intervals: Rate: 55 FL: 202 QRSD: 170 QT: 462 QTc: 441 [place]: P: 18 FL: 202 QRS: -4 T: 9 INTERPRETIVE STATEMENTS: Sinus bradycardia Right bundle branch block T wave abnormality, consider lateral ischemia Abnormal ECG Compared to ECG 03/16/2021 08:23:08 Sinus rhythm no longer present T-wave abnormality still present Possible ischemia still present Electronically Signed On 01-10-22 18:36:05 CDT by Jelani Castillo
== END 2022-01-10 01:40 | disposition home or self-care (01) ==
LOC: ER 20:30
DX: Z04.3 Encounter for examination and observation following other accident (principal); W18.30XA Fall on same level, unspecified, initial encounter
CPT/HCPCS: 93005; 85025; 80048; 36415; 83735; 70450; 72125; 96374; 99284; J7050; 81003; 81015